=== PATIENT | female | born 1980 | race African-American/Black ===

== ENCOUNTER 2020-05-06 06:45 | Emergency (ER) | payer SELFPAY ==
[2020-05-06] MEDS ORDERED: Ringers Lactate 1,000 ML IV ONE (07:09)
[2020-05-06] MEDS ORDERED: DICYCLOMINE HCL 10 MG CAP ONE (07:09)
[2020-05-06] MEDS ORDERED: ONDANSETRON 4 MG/2 ML VIAL ONE (07:09)
--- NOTE | 2020-05-06 07:31 | RAD REPORT ---
EXAM DESCRIPTION: RAD - Chest Single View - 05/06/2020 7:23 am CLINICAL HISTORY: COUGH TECHNIQUE: AP portable chest image was obtained 05/06/2020 7:23 am . FINDINGS: Lungs are clear. Heart and vasculature are normal. No measurable pleural effusion and no p neumothorax. No acute bony abnormality seen. No acute aortic findings suspected. IMPRESSION: No acute cardiopulmonary process.
[2020-05-06 07:44] LABS: Absolute Lymphocytes (CBC) 0.7 K/uL (0.7-4.9); Basophils % 0.9 % (0-1.3); Hematocrit 31.5 % (36.0-45.0); Lymphocytes % 9.9 % (15.3-44.8); MPV 7.4 fL (7.6-11.3); RBC Red Blood Cell Count 3.36 M/uL (3.86-4.86)
[2020-05-06 07:55] LABS: ALT/SGPT 29 U/L (12-78); AST/SGOT 121 U/L (15-37); Albumin 3.9 g/dL (3.4-5.0); Alkaline Phosphatase 130 U/L (45-117); BUN Blood Urea Nitrogen 4 mg/dL (7-18); Bicarbonate 26 mmol/L (21-32); Bilirubin Direct 0.6 mg/dL (0-0.2); Glucose Level 96 mg/dL (74-106); Lipase 166 U/L (73-393); Protein, Total 8.1 g/dL (6.4-8.2); Sodium Level 135 mmol/L (136-145)
[2020-05-06 07:56] LABS: Potassium 2.9 mmol/L (3.5-5.1)
[2020-05-06] MEDS ORDERED: POTASSIUM 25 MEQ EFFERV TAB ONE (08:15)
[2020-05-06] MEDS ORDERED: KCL 20 MEQ/100 mL IVPB 20 MEQ/100 ML BAG IV ONE (08:15)
--- NOTE | 2020-05-06 08:56 | EDPHYS ---
Physician Documentation [facility] Name: Brii Garcia Age: 40 yrs Sex: Female : 1980 Arrival Date: 05/06/2020 Time: 06:46 Bed 7 Private MD: LATONYA Physician Ton Neri HPI: 05/06 08:36 This 40 yrs old Black Female presents to ER via EMS with complaints of jr8 Nausea/Vomiting/Diarrhea. 08:39 The patient presents to the emergency department with nausea, vomiting, diarrhea. jr8 Onset: The symptoms/episode began/occurred gradually, 4 day(s) ago. Possible causes: unknown. The symptoms are aggravated by nothing. The symptoms are alleviated by nothing. Associated signs and symptoms: Pertinent positives: URI symptoms. Severity of symptoms: At their worst the symptoms were moderate in the emergency department the symptoms are unchanged. The patient has not experienced similar symptoms in the past. The patient has not recently seen a physician. Denies sick contacts and recent travel. Historical: - Allergies: 06:47 No Known Allergies; ea - Home Meds: 06:47 None [Active]; ea - PMHx: 06:47 None; ea - PSHx: 06:47 None; ea - Immunization history:: Adult Immunizations up to date. - Social history:: Smoking status: . ROS: 08:39 Eyes: Negative for injury, pain, redness, and discharge, Neck: Negative for injury, jr8 pain, and swelling, Cardiovascular: Negative for chest pain, palpitations, and edema, Back: Negative for injury and pain, MS/Extremity: Negative for injury and deformity, Skin: Negative for injury, rash, and discoloration, Neuro: Negative for headache, weakness, numbness, tingling, and seizure. 08:39 ENT: Positive for rhinorrhea, sinus congestion. 08:39 Respiratory: Positive for cough, Negative for dyspnea on exertion, shortness of breath, sputum production, wheezing. 08:39 Abdomen/GI: Positive for nausea, vomiting, and diarrhea, abdominal cramps, Negative for abdominal distension, anorexia, dysphagia, hematemesis, black/tarry stool, rectal pain, rectal bleeding, bowel incontinence, flatulence. Exam: 08:39 Eyes: Pupils equal round and reactive to light, extra-ocular motions intact. Lids and jr8 lashes normal. Conjunctiva and sclera are non-icteric and not injected. Cornea within normal limits. Periorbital areas with no swelling, redness, or edema. ENT: Nares patent. No nasal discharge, no septal abnormalities noted. Tympanic membranes are normal and external auditory canals are clear. Oropharynx with no redness, swelling, or masses, exudates, or evidence of obstruction, uvula midline. Mucous membranes moist. Neck: Trachea midline, no thyromegaly or masses palpated, and no cervical lymphadenopathy. Supple, full range of motion without nuchal rigidity, or vertebral point tenderness. No Meningismus. Respiratory: Lungs have equal breath sounds bilaterally, clear to auscultation and percussion. No rales, rhonchi or wheezes noted. No increased work of breathing, no retractions or nasal flaring. Abdomen/GI: Soft, non-tender, with normal bowel sounds. No distension or tympany. No guarding or rebound. No evidence of tenderness throughout. Back: No spinal tenderness. No costovertebral tenderness. Full range of motion. Skin: Warm, dry with normal turgor. Normal color with no rashes, no lesions, and no evidence of cellulitis. MS/ Extremity: Pulses equal, no cyanosis. Neurovascular intact. Full, normal range of motion. Neuro: Awake and alert, GCS 15, oriented to person, place, time, and situation. Cranial nerves II-XII grossly intact. Motor strength 5/5 in all extremities. Sensory grossly intact. Cerebellar exam normal. Normal gait. 08:39 Cardiovascular: Rate: tachycardic, Rhythm: regular, Pulses: Pulses are 2+ in right radial artery and left radial artery. Heart sounds: normal, normal S1and S2, no S3 or S4, no murmur, no rub, no gallop, Edema: is not appreciated. 08:41 ECG was reviewed by the Attending Physician. jr8 Vital Signs: 06:48 BP 144 / 100; Pulse 106; Resp 16; Pulse Ox 100% on R/A; Weight 61.69 kg; Pain 10/10; mt2 06:51 BP 164 / 124; Pulse 107; Resp 16; Temp 97.4; Pulse Ox 96% on R/A; Pain 10/10; mt2 06:53 Pulse 134; mt2 07:43 BP 136 / 106; Pulse 103; Resp 20; Pulse Ox 96% on R/A; jr10 09:42 BP 146 / 100; Pulse 93; Resp 20; Pulse Ox 100% on R/A; jr10 MDM: 06:51 Patient medically screened. jr8 06:56 Patient medically screened. anita 08:36 Data reviewed: vital signs, nurses notes, lab test result(s), EKG, radiologic studies, jr8 plain films, ultrasound. Data interpreted: Pulse oximetry: on room air is 96 %. Interpretation: normal. Counseling: I had a detailed discussion with the patient and/or guardian regarding: the historical points, exam findings, and any diagnostic results supporting the discharge/admit diagnosis, lab results, radiology results, the need for outpatient follow up, a fish liver sorter, to return to the emergency department if symptoms worsen or persist or if there are any questions or concerns that arise at home. 08:52 Differential diagnosis: Nonspecific abd pain, cholecystitis, pancreatitis, viral jr8 gastroenteritis. Response to treatment: the patient's symptoms have mildly improved after treatment. ED course: Patients VS improving. Can tolerate fluids. US and CXR with no acute findings. Discussed LFT's with patient. Will start patient on medications for n/v/d. Explained to her that this most likely is viral in nature. Would continue to hydrate at home and will give supportive measures at this time but would not start Abx yet. Knows to come back if something were to change or worsen. 05/06 06:58 Order name: Basic Metabolic Panel; Complete Time: 08:01 05/06 06:58 Order name: CBC with Diff ea 05/06 06:58 Order name: Hepatic Function; Complete Time: 08:01 05/06 06:58 Order name: Lipase; Complete Time: 08:01 ea 05/06 06:58 Order name: XRAY Chest (1 view); Complete Time: 07:34 05/06 06:58 Order name: COVID-19 05/06 06:58 Order name: IV Saline Lock; Complete Time: 07:44 ea 05/06 08:10 Order name: US Abdomen Limited; Complete Time: 09:26 jr8 05/06 06:58 Order name: Labs collected and sent; Complete Time: 07:44 05/06 06:58 Order name: EKG - Nurse/Tech; Complete Time: 07:44 ea EC:41 Rate is 101 beats/min. Rhythm is regular, Sinus tachycardia. QRS Widener is Normal. FL jr8 interval is normal at 194 msec. QRS interval is normal at 78 msec. QT interval is normal at 368 msec. Q waves are Present in leads V1, V2. T waves are Normal. No ST changes noted. Clinical impression: Septal SC - age indeterminate and No evidence of ischemia. Interpreted by me. Reviewed by me. Administered Medications: 07:45 Drug: Lactated Ringers Solution 1000 ml Route: IV; Rate: 1000 bolus; Site: right jr10 antecubital; 09:35 Follow up: Response: No adverse reaction; IV Status: Completed infusion jr10 07:45 Drug: Zofran (Ondansetron) 4 mg Route: IVP; Site: right antecubital; jr10 09:34 Follow up: Response: No adverse reaction jr10 07:45 Not Given (pt reports that she cannot swallow pills, does not wish to have IM injection jr10 at this time): Bentyl 20 mg PO once 08:21 Drug: Potassium Chloride 20 mEq Route: IV; Rate: calculated rate; Site: right jr10 antecubital; 09:34 Follow up: IV Status: Completed infusion; IV Intake: 30ml ; pt states that she wishes jr10 not to finish potassium and just be d/c home; explained to pt the importance of potassium intact and foods high in potassium to try to eat at home 08:21 Drug: Potassium Effervescent Tablet 50 mEq Route: PO; 10 09:33 Follow up: Response: No adverse reaction jr10 Disposition: 16:40 Co-signature as Attending Physician, Ton Neri MD I agree with the assessment and anita plan of care. Disposition: 05/06/20 08:55 Discharged to Home. Impression: Hypokalemia, Dehydration, Acute Gastroenteritis. - Condition is Stable. - Discharge Instructions: Dehydration, Adult, Hypokalemia. - Prescriptions for Bentyl 20 mg Oral Tablet - take 1 tablet by ORAL route every 6 hours As needed; 20 tablet. Lomotil 2.5- 0.025 mg Oral Tablet - take 2 tablet by ORAL route every 6 hours As needed Max 8 tabs/day; 24 tablet. promethazine 6.25 mg/5 mL Oral Syrup - take 10 milliliters by ORAL route every 6 hours As needed; 200 milliliter. - Medication Reconciliation Form, Thank You Letter, Antibiotic Education, Prescription Opioid Use form. - Follow up: Private Physician; When: 2 - 3 days; Reason: Recheck today's complaints, Continuance of care, Re-evaluation by your physician. - Problem is new. - Symptoms have improved. Signatures: Dispatcher [employer] EDTon Diaz MD MD cha Roszak, Josh, PA PA jr8 Quita Boss, RN RN ea Concetta Gibbons RN RN mt2 Radha Tabares RN RN jr10 Corrections: (The following items were deleted from the chart) 09:42 08:55 05/06/2020 08:55 Discharged to Home. Impression: Hypokalemia; Dehydration; Acute jr10 Gastroenteritis. Condition is Stable. Forms are Medication Reconciliation Form, Thank You Letter, Antibiotic Education, Prescription Opioid Use. Follow up: Private Physician; When: 2 - 3 days; Reason: Recheck today's complaints, Continuance of care, Re-evaluation by your physician. Problem is new. Symptoms have improved. jr8
--- NOTE | 2020-05-06 08:56 | ER ---
Nurse's Notes [facility] Name: Brii Garcia Age: 40 yrs Sex: Female : 1980 Arrival Date: 05/06/2020 Time: 06:46 Bed 7 Private MD: Diagnosis: Hypokalemia;Dehydration;Acute Gastroenteritis Presentation: 05/06 06:48 Chief complaint: EMS states: BIBA FROM HOME N/V/D X 4 DAYS. ZOFRAN 4MG GIVEN ON SCENE. mt2 DENIES FEVER. Coronavirus screen: Client denies travel out of the [place] in the last 14 days. At this time, the client does not indicate any symptoms associated with coronavirus-19. Ebola Screen: No symptoms or risks identified at this time. Initial Sepsis Screen: Does the patient meet any 2 criteria? No. Patient's initial sepsis screen is negative. Does the patient have a suspected source of infection? No. Patient's initial sepsis screen is negative. Risk Assessment: Do you want to hurt yourself or someone else? Patient reports no desire to harm self or others. Onset of symptoms was April 30, 2020. 06:48 Method Of Arrival: EMS: [facility] mt2 06:48 Acuity: ANG 3 mt2 Historical: - Allergies: 06:47 No Known Allergies; ea - Home Meds: 06:47 None [Active]; ea - PMHx: 06:47 None; ea - PSHx: 06:47 None; ea - Immunization history:: Adult Immunizations up to date. - Social history:: Smoking status: . Screenin:46 Abuse screen: Denies threats or abuse. Nutritional screening: No deficits noted. ea Tuberculosis screening: No symptoms or risk factors identified. Fall Risk IV access (20 points). Assessment: 07:41 General: Appears uncomfortable, Behavior is appropriate for age. Pain: Complains of jr10 pain in generalized ISAAC and abd cramping Pain began Monday night. Neuro: No deficits noted. Cardiovascular: No deficits noted. Denies chest pain. Respiratory: Reports shortness of breath at rest when lying flat "I had to sit up in the recliner last night to try to get some sleep roberth everytime I lay flat I feel like I can't catch my breath" Airway is patent Respiratory effort is even, unlabored, Respiratory pattern is regular, symmetrical, the patient has mild shortness of breath. GI: Abdomen is non-distended, Stools are reported to be diarrhea. Bowel sounds present X 4 quads. Abd is soft and non tender Reports cramping, diarrhea, intolerance of fluids, intolerance of food, nausea. : No deficits noted. No signs and/or symptoms were reported regarding the genitourinary system. Denies burning with urination, urinary frequency, urgency. EENT: No deficits noted. No signs and/or symptoms were reported regarding the EENT system. Derm: No deficits noted. No signs and/or symptoms reported regarding the dermatologic system. Musculoskeletal: No deficits noted. No signs and/or symptoms reported regarding the musculoskeletal system. 08:36 Reassessment: Patient and/or family updated on plan of care and expected duration. Pain jr10 level reassessed. Patient is alert, oriented x 3, equal unlabored respirations, skin warm/dry/pink. US at bedside. Vital Signs: 06:48 BP 144 / 100; Pulse 106; Resp 16; Pulse Ox 100% on R/A; Weight 61.69 kg; Pain 10/10; mt2 06:51 BP 164 / 124; Pulse 107; Resp 16; Temp 97.4; Pulse Ox 96% on R/A; Pain 10/10; mt2 06:53 Pulse 134; mt2 07:43 BP 136 / 106; Pulse 103; Resp 20; Pulse Ox 96% on R/A; jr10 09:42 BP 146 / 100; Pulse 93; Resp 20; Pulse Ox 100% on R/A; jr10 ED Course: 06:46 Patient arrived in ED. cl3 06:47 Concetta Gibbons, ANNE-MARIE is Primary Nurse. mt2 06:47 Patient has correct armband on for positive identification. Placed in gown. Bed in low ea position. Call light in reach. 06:48 Lyndon Emerson PA is PHCP. jr8 06:48 Ton Neri MD is Attending Physician. jr8 06:51 Triage completed. mt2 06:52 Arm band placed on right wrist. Patient placed in an exam room, on a stretcher, on ea pulse oximetry. 07:23 XRAY Chest (1 view) In Process Unspecified. EDMS 07:40 No provider procedures requiring assistance completed. Maintain EMS IV. Dressing jr10 intact. Good blood return noted. Site clean \\T\\ dry. Gauge \\T\\ site: 20# to right AC. Flushed. 07:41 Pulse ox on. NIBP on. jr10 08:41 US Abdomen Limited In Process Unspecified. EDMS 09:35 IV discontinued, intact, bleeding controlled, No redness/swelling at site. Pressure jr10 dressing applied. Administered Medications: 07:45 Drug: Lactated Ringers Solution 1000 ml Route: IV; Rate: 1000 bolus; Site: right jr10 antecubital; 09:35 Follow up: Response: No adverse reaction; IV Status: Completed infusion jr10 07:45 Drug: Zofran (Ondansetron) 4 mg Route: IVP; Site: right antecubital; jr10 09:34 Follow up: Response: No adverse reaction jr10 07:45 Not Given (pt reports that she cannot swallow pills, does not wish to have IM injection jr10 at this time): Bentyl 20 mg PO once 08:21 Drug: Potassium Chloride 20 mEq Route: IV; Rate: calculated rate; Site: right jr10 antecubital; 09:34 Follow up: IV Status: Completed infusion; IV Intake: 30ml ; pt states that she wishes jrLakisha not to finish potassium and just be d/c home; explained to pt the importance of potassium intact and foods high in potassium to try to eat at home 08:21 Drug: Potassium Effervescent Tablet 50 mEq Route: PO; jr10 09:33 Follow up: Response: No adverse reaction jr10 Intake: 09:34 IV: 30ml; Total: 30ml. jr10 Outcome: 08:55 Discharge ordered by . jr8 09:35 Discharged to home ambulatory. jr10 09:35 Condition: stable 09:35 Discharge instructions given to patient, Instructed on discharge instructions, follow up and referral plans. Demonstrated understanding of instructions, follow-up care, medications, Prescriptions given X 3. 09:42 Patient left the ED. jr10 Addendum: 05/08/2020 15:54 Addendum: COVID-19 Result: Negative result given to RN to notify pt. Attempted to d m5 contact pt regarding negative COVID-19 swab results. Left voice mail. Signatures: Dispatcher [facility] Verito Jain RN RN dm5 Lyndon Emerson PA PA jr8 Quita Boss, RN RN Dinora Dyson cl3 Concetta Gibbons, RN RN mt2 Radha Tabares RN RN jr10
[2020-05-06] MEDS ORDERED: NA CHLORIDE 0.9% 500 ML ONE (09:10)
--- NOTE | 2020-05-06 09:19 | RAD REPORT ---
EXAM DESCRIPTION: US - Abdomen Exam Limited - 05/06/2020 8:41 am CLINICAL HISTORY: Liver and GB COMPARISON: No comparisons FINDINGS: No gallstones identified. There is small amount of sludge layering on the dependent portio n of the gallbladder. There is no wall thickening or pericholecystic fluid. No common duct stone or biliary tree dilatation identified. No suspicious liver lesion. There are several small less than 2 centimeter areas of homogeneous incre ased parenchymal echogenicity. These are believed to be multiple small hemangiomas. No portal vein ab normality on Doppler assessment. Liver is enlarged at 20 cm maximum dimension. IMPRESSION: Gallbladder sludge with no other gallbladder or biliary tree finding. Hepatomegaly at 20 cm. Small hemangiomas are present.
[2020-05-06 10:09] LABS: Platelet Estimate DECR; Platelets, Giant FEW PRESENT; White Blood Cell Scan OK
[2020-05-06 10:10] LABS: Anisocytosis 3+; Blood Morphology Comment NOTED (NOT SEEN); Target Cells 1+
--- NOTE | 2020-05-07 08:19 | EKG ---
Test Date: 2020-05-06 Test Time: 07:39:12 Glue Maker Bone: NANCI MEASUREMENT RESULTS: Intervals: Rate: 101 SC: 194 QRSD: 78 QT: 368 QTc: 477 [place]: P: 71 SC: 194 QRS: 71 T: 52 INTERPRETIVE STATEMENTS: Sinus tachycardia Septal infarct, age undetermined Abnormal ECG No previous ECG available for comparison Electronically Signed On 05-07-20 08:16:46 CDT by Jose Angel Clancy
[2020-05-08 10:10] VITALS: TEMP 97.4
[2020-05-08 10:14] VITALS: BP 146/100; O2SAT 100
== END 2020-05-06 09:42 | disposition home or self-care (01) ==
LOC: ER 06:45
DX: K52.9 Noninfective gastroenteritis and colitis, unspecified (principal); E86.0 Dehydration; E87.6 Hypokalemia
CPT/HCPCS: 36415; 71045; 76705; 80048; 80076; 83690; 85025; 93005; 96361; 96365; 96375; 99284; J2405; J3480; J7040; J7120; U0002

== ENCOUNTER 2020-11-11 13:30 | Inpatient (IN) | payer SELFPAY ==
[2020-11-11 14:04] LABS: Absolute Lymphocytes (CBC) 2.6 K/uL (0.7-4.9); Basophils % 0.7 % (0-1.3); Hematocrit 31.9 % (36.0-45.0); Lymphocytes % 22.7 % (15.3-44.8); MPV 8.3 fL (7.6-11.3); RBC Red Blood Cell Count 3.48 M/uL (3.86-4.86)
[2020-11-11] MEDS ORDERED: ONDANSETRON 4 MG/2 ML VIAL ONE ×2 (14:10→19:27)
--- NOTE | 2020-11-11 14:18 | RAD REPORT ---
EXAM DESCRIPTION: CT - Head Brain Wo Cont - 11/11/2020 2:07 pm CLINICAL HISTORY: Syncope COMPARISON: None TECHNIQUE: Computed axial tomography of the head was obtained. IV contrast was not requested. All CT scans are performed using dose optimization technique as appropriate and may include automated exposure control or mA/KV adjustment according to patient size. FINDINGS: An intracranial bleed is not seen . The ventricles are normal in caliber. No extra-axial fluid collection is noted. Mild low-density areas within periventricular white matter Fluid within the sinuses/ mastoids is not seen. IMPRESSION: Mild low-density areas within periventricular white matter nonspecific finding. This can be secondary mild ischemic changes secondary to mild small vessel disease. If the patient continues symptoms to have symptoms to suggest intracranial pathology MRI would be rec ommended
--- NOTE | 2020-11-11 14:39 | RAD REPORT ---
EXAM DESCRIPTION: CT - Chest Abdomen Pelvis W Cont - 11/11/2020 2:11 pm CLINICAL HISTORY: Chest and abdominal pain COMPARISON: CT chest January 13, 2017 TECHNIQUE: Computed axial tomography of the chest, abdomen and pelvis was obtained. 100 cc Isovue-30 0 was administered intravenously. Oral contrast was not requested. This limits evaluation of bowel. All CT scans are performed using dose optimization technique as appropriate and may include automated exposure control or mA/KV adjustment according to patient size. FINDINGS: Lungs are clear. No mediastinal or hilar lymphadenopathy. No pleural effusion. No pericardial effusion The liver has diffusely diminished attenuation consistent with fatty infiltration. Additional ill-def ined low density area measuring approximately 4 x 1 centimeters is present within right lower lobe po sterior segment. It extends to the capsule. There is no subcapsular hematoma. Spleen, pancreas, adrenals and kidneys appear grossly normal. 3.8 centimeter left ovarian cyst without significant free fluid. IMPRESSION: A 4 x 1 centimeter ill-defined low-density area within the posterior segment of the righ t lobe of the liver made represent focal fatty infiltration superimpose over additional fatty infiltr ation. A laceration can also have this appearance and should be correlated clinically. However, ther e is no adjacent subcapsular hematoma or hemoperitoneum. Mild stranding within the fat adjacent to transverse colon is a nonspecific finding. It could indicat e mild inflammation 3.8 centimeter left ovarian cyst without significant free fluid
[2020-11-11 14:44] LABS: BUN Blood Urea Nitrogen 2 mg/dL (7-18); Bicarbonate 21 mmol/L (21-32); Glucose Level 132 mg/dL (74-106); Sodium Level 136 mmol/L (136-145); Troponin (Emerg Dept Use Only) < 0.02 ng/mL (0.0-0.045)
[2020-11-11 14:52] LABS: Potassium 2.6 mmol/L (3.5-5.1)
[2020-11-11] MEDS ORDERED: Ringers Lactate 1,000 ML IV ONE (14:58)
[2020-11-11] MEDS ORDERED: ACETAMINOPHEN 500 MG TAB PO PRN (15:44)
[2020-11-11] MEDS ORDERED: MORPHINE 2 MG/ML SYR IV PRN (15:44)
[2020-11-11] MEDS ORDERED: ONDANSETRON 4 MG/2 ML VIAL IV PRN (15:44)
[2020-11-11] MEDS: NA CHLORIDE 0.9% 1,000 ML IV SCH (16:00)
[2020-11-11] MEDS ORDERED: KCL 20 MEQ/100 mL IVPB 20 MEQ/100 ML BAG IV ONE (16:48)
[2020-11-11] MEDS ORDERED: NA CHLORIDE 0.9% 500 ML ONE (16:48)
--- NOTE | 2020-11-11 16:56 | ER ---
Nurse's Notes [facility] Name: Brii Garcia Age: 40 yrs Sex: Female : 1980 Arrival Date: 11/11/2020 Time: 13:35 Bed 19 Private MD: Diagnosis: New Onset seizure;Hypokalemia;Dehydration Presentation: 11/11 13:39 Chief complaint: registration staff registering pt by pts son, pt witness collapse on tw2 floor, pts step son states she had vomited once and he helped her clean up, then he went back to his room, then she started feeling nauseous and sweating so he brought her here, nkda, no known hx. Coronavirus screen: nausea, vomiting. Client presents with at least one sign or symptom that may indicate coronavirus-19. Standard/surgical mask placed on the client. Provider contacted for isolation considerations. Ebola Screen: Patient denies travel to an Ebola-affected area in the 21 days before illness onset. Initial Sepsis Screen: Does the patient meet any 2 criteria? HR > 90 bpm. Does the patient have a suspected source of infection? No. Patient's initial sepsis screen is negative. Risk Assessment: Do you want to hurt yourself or someone else? Patient reports no desire to harm self or others. Onset of symptoms was November 11, 2020. 13:39 Method Of Arrival: Stretcher tw2 13:39 Acuity: ANG 2 tw2 Triage Assessment: 13:41 General: Appears slender, Behavior is anxious. Pain: Complains of pain in abdomen, tw2 right foot, left foot, right leg and left leg. Neuro: Level of Consciousness is confused, Oriented to person. GI: Pt is actively vomiting bile. Derm: Skin is diaphoretic. Historical: - Allergies: 13:43 No Known Allergies; tw2 - PMHx: 13:43 Unable to obtain; tw2 - PSHx: 13:43 None; tw2 - Immunization history:: Adult Immunizations. - Social history:: Smoking status: . - Family history:: not pertinent. - Hospitalizations: : No recent hospitalization is reported. Screenin:43 Abuse screen: Denies threats or abuse. Nutritional screening: No deficits noted. tw2 Tuberculosis screening: No symptoms or risk factors identified. Fall Risk None identified. Assessment: 13:46 General: Appears in no apparent distress. Behavior is cooperative, agitated. Pain: zb Complains of pain in left leg and right leg. Neuro: Level of Consciousness is awake, alert, obeys commands, Oriented to person, Seizure activity reported prior to arrival. noted by son in lobby. Cardiovascular: Patient's skin is warm and dry. Respiratory: Airway is patent Respiratory effort is even, unlabored. GI: Pt is actively vomiting bile. : No signs and/or symptoms were reported regarding the genitourinary system. EENT: No signs and/or symptoms were reported regarding the EENT system. Derm: Skin is intact, is healthy with good turgor, Skin is dry, Skin is normal. Musculoskeletal: Range of motion: intact in all extremities. 14:30 Reassessment: Patient appears in no apparent distress at this time. Patient and/or zb family updated on plan of care and expected duration. Pain level reassessed. Patient is alert, oriented x 3, equal unlabored respirations, skin warm/dry/pink. Patient states she wants to go home. denies n/v at this time states she feels better. denies LR and other IV medication. Want to leave. notified charge nurse and ECP. 15:35 Reassessment: ECP at bedside. z 15:48 Reassessment: Patient states that she would like to smoke informed not to. notified charge nurse. 16:03 Reassessment: Patient walked out of room w/ soon stating that she had to smoke. IV zb removed. ECP notified. 16:30 Reassessment: patient returned back to room. 17:53 Reassessment: hospitalist at bedside. Vital Signs: 13:39 Pulse 96; Resp 19; Pulse Ox 98% on R/A; Weight 49.9 kg (R); Height 5 ft. 2 in. (157.48 tw2 cm); 13:46 BP 169 / 108; ca1 15:00 BP 156 / 103; Pulse 66; Resp 18; Pulse Ox 100% on R/A; zb 16:00 BP 157 / 100; Pulse 109; Resp 18; Pulse Ox 99% ; zb 17:56 BP 148 / 100; Pulse 99; Resp 16; Pulse Ox 100% on R/A; zb 13:39 Body Mass Index 20.12 (49.90 kg, 157.48 cm) tw2 ED Course: 13:35 Patient arrived in ED. am2 13:38 Raul Parkinson MD is Attending Physician. rn 13:38 Bed in low position. Call light in reach. Side rails up X2. Adult w/ patient. Pulse ox tw2 on. NIBP on. 13:41 Triage completed. tw2 13:41 Arm band placed on. tw2 13:46 Jennifer Lea RN is Primary Nurse. zb 13:46 Initial lab(s) drawn, by nm, sent to lab. Inserted saline lock: 22 gauge in right ca1 wrist, using aseptic technique. Blood collected. 14:07 CT Head Brain wo Cont In Process Unspecified. EDMS 14:11 CT Chest, Abdomen, Pelvis - W/Contrast In Process Unspecified. EDMS 16:53 Diego Sharif MD is Hospitalizing Provider. rn 03 00:25 No provider procedures requiring assistance completed. Patient admitted, IV remains in sf place. 06:58 Primary Nurse role handed off by Jennifer Lea RN bp 06:58 Margarito Catherine, ANNE-MARIE is Primary Nurse. bp 07:03 Report given to ANNE-MARIE Pimentel. sf Administered Medications: 03 13:59 Drug: Zofran (Ondansetron) 4 mg Route: IVP; Site: right forearm; zb 15:49 Follow up: Response: No adverse reaction; Nausea is decreased zb 16:53 Drug: Potassium Chloride 20 mEq Route: IV; Rate: calculated rate; Site: right forearm; zb 19:23 Follow up: Response: No adverse reaction; IV Status: Completed infusion; IV Intake: zb 100ml 16:53 Drug: NS 0.9% 500 ml {Note: administered w/ potassium .} Volume: 500 ml; Route: IV; zb Rate: 1 bolus; Site: right forearm; 19:00 Follow up: Response: No adverse reaction; IV Status: Completed infusion; IV Intake: zb 500ml 17:46 Drug: morphine 4 mg Route: IVP; Site: right forearm; zb 19:00 Follow up: Response: No adverse reaction; Pain is decreased; RASS: Alert and Calm (0) zb 19:00 Drug: Lactated Ringers Solution 1000 ml Route: IV; Rate: 500 ml/hr; Site: right zb antecubital; 23:37 Follow up: Response: No adverse reaction; IV Status: Completed infusion; IV Intake: zb 1000ml 20:47 Drug: Zofran (Ondansetron) 4 mg Route: IVP; Site: right forearm; zb 21:00 Follow up: Response: Nausea is decreased zb Intake: 19:00 IV: 500ml; Total: 500ml. zb 19:23 IV: 100ml; Total: 600ml. zb 23:37 IV: 1000ml; Total: 1600ml. zb Outcome: 16:55 Decision to Hospitalize by Provider. rn 11/12 00:25 Admitted to ER Hold. Please see [facility] for further documentation. sf Condition: stable Instructed on the need for admit. 13:05 Patient left the ED. bp Signatures: Dispatcher [employer] EDRaul Mcclain MD MD rn Wise, Tara, RN RN tw2 Vidya Anne Brian, RN RN bp Stephy Aviles RN RN ca1 Brown, Zipporah, RN RN zb Kumar Mak RN RN sf Corrections: (The following items were deleted from the chart) 11/11 23:32 19:00 Response: No adverse reaction; Nausea is decreased zb zb
--- NOTE | 2020-11-11 16:56 | EDPHYS ---
Physician Documentation [facility] Name: Brii Garcia Age: 40 yrs Sex: Female : 1980 Arrival Date: 11/11/2020 Time: 13:35 Bed 19 Private MD: ED Physician Raul Parkinson HPI: 11/11 13:45 This 40 yrs old Black Female presents to ER via Stretcher with complaints of vomiting, rn not feeling well. 13:49 The patient presents after having a possible seizure episode. Seizure onset: just prior rn to arrival. Seizure Hx: the patient has no previous seizure history. Associated injury: The patient did not suffer any apparent associated injury. Current symptoms: confusion. The patient has not experienced similar symptoms in the past. The patient has not recently seen a physician. Per son, woke up this morning not feeling well, threw up once, didn't get better, brought her in, had what was described as seizure activity in front lobby, brief, followed by confusion. No hx of seizure. No known head injury. Son reports no medication or medical problems. Was let down to ground by family, no assoc trauma.. Historical: - Allergies: 13:43 No Known Allergies; tw2 - PMHx: 13:43 Unable to obtain; tw2 - PSHx: 13:43 None; tw2 - Immunization history:: Adult Immunizations. - Social history:: Smoking status: . - Family history:: not pertinent. - Hospitalizations: : No recent hospitalization is reported. ROS: 13:49 Unable to obtain ROS due to altered mental status. rn Exam: 13:49 Constitutional: Thin female, with emesis on shirt and floor, appears altered, but rn stands with assistance and sitting upright in stretcher. Head/Face: Normocephalic, atraumatic. Eyes: Pupils equal round and reactive to light, extra-ocular motions intact. Lids and lashes normal. Conjunctiva and sclera are non-icteric and not injected. Cornea within normal limits. Periorbital areas with no swelling, redness, or edema. NO nystagmus. Neck: Trachea midline, no thyromegaly or masses palpated, and no cervical lymphadenopathy. Supple, full range of motion without nuchal rigidity, or vertebral point tenderness. No Meningismus. Cardiovascular: Regular rate and rhythm. No pulse deficits. Respiratory: No increased work of breathing, no retractions or nasal flaring. Abdomen/GI: soft, non-tender Skin: Warm, dry, no rash MS/ Extremity: Pulses equal, no cyanosis. Neurovascular intact. Full, normal range of motion. Equal circumference. Neuro: Awake and alert, GCS 15, oriented to person, place, not time, did not recognize son. Cranial nerves II-XII grossly intact. Motor strength 4/5 in all extremities. Sensory grossly intact. Vital Signs: 13:39 Pulse 96; Resp 19; Pulse Ox 98% on R/A; Weight 49.9 kg (R); Height 5 ft. 2 in. (157.48 tw2 cm); 13:46 BP 169 / 108; ca1 15:00 BP 156 / 103; Pulse 66; Resp 18; Pulse Ox 100% on R/A; zb 16:00 BP 157 / 100; Pulse 109; Resp 18; Pulse Ox 99% ; zb 17:56 BP 148 / 100; Pulse 99; Resp 16; Pulse Ox 100% on R/A; zb 13:39 Body Mass Index 20.12 (49.90 kg, 157.48 cm) tw2 MDM: 13:38 Patient medically screened. rn 16:51 Differential diagnosis: seizure, enteritis, colitis, hypokalemia. Data reviewed: vital rn signs, nurses notes, lab test result(s), EKG, radiologic studies, CT scan, and as a result, I will admit patient. Counseling: I had a detailed discussion with the patient and/or guardian regarding: the historical points, exam findings, and any diagnostic results supporting the discharge/admit diagnosis, lab results, radiology results, the need for further work-up and treatment in the hospital. Response to treatment: the patient's symptoms have markedly improved after treatment, the patient's condition has returned to base line, and as a result, I will admit patient. ED course: Pt with hypokalemia, first seizure, will admit to Dr. Sharif with neurology consult.. 11/11 13:41 Order name: CBC with Diff rn 11/11 12:41 Order name: Basic Metabolic Panel; Complete Time: 15:14 rn 11/11 13:41 Order name: Urine Microscopic Only rn 11/11 12:41 Order name: Procalcitonin rn 11/11 13:41 Order name: Lactate; Complete Time: 16:55 rn 11/11 13:41 Order name: Troponin (emerg Dept Use Only); Complete Time: 15:14 rn 11/11 13:41 Order name: Flu rn 11/11 13:41 Order name: Blood Culture Adult (2) rn 11/11 13:56 Order name: Glucose, Ancillary Testing; Complete Time: 15:14 EDMS 11/11 16:58 Order name: COVID-19/FLU A+B EDMS 11/11 22:20 Order name: CBC Smear Scan EDMS 11/11 23:16 Order name: Urine Dipstick--Ancillary (enter results) tt3 11/12 00:42 Order name: Urine Dipstick-Ancillary EDMS 11/11 13:41 Order name: CT Head Brain wo Cont; Complete Time: 15:14 rn 11/11 13:41 Order name: CT Chest, Abdomen, Pelvis - W/Contrast; Complete Time: 15:14 rn 11/11 13:41 Order name: Urine Dipstick-Ancillary (obtain specimen); Complete Time: 23:39 rn 11/11 13:41 Order name: IV Start; Complete Time: 13:56 rn 11/11 13:41 Order name: EKG; Complete Time: 13:42 rn 11/12 01:11 Order name: CREATININE WHOLE BLOOD EDIL 11/12 07:04 Order name: Comprehensive Metabolic Panel EDIL 11/12 08:14 Order name: CBC with Automated Diff EDMS 11/12 09:23 Order name: MRI EDMS 11/12 09:46 Order name: CBC Smear Scan EDIL 11/11 13:41 Order name: Glucose Level; Complete Time: 13:55 rn 11/11 13:41 Order name: EKG - Nurse/Tech; Complete Time: 13:55 rn 11/11 13:41 Order name: Urine Test (obtain specimen); Complete Time: 23:30 rn Administered Medications: 13:59 Drug: Zofran (Ondansetron) 4 mg Route: IVP; Site: right forearm; zb 15:49 Follow up: Response: No adverse reaction; Nausea is decreased zb 16:53 Drug: Potassium Chloride 20 mEq Route: IV; Rate: calculated rate; Site: right forearm; zb 19:23 Follow up: Response: No adverse reaction; IV Status: Completed infusion; IV Intake: zb 100ml 16:53 Drug: NS 0.9% 500 ml {Note: administered w/ potassium .} Volume: 500 ml; Route: IV; zb Rate: 1 bolus; Site: right forearm; 19:00 Follow up: Response: No adverse reaction; IV Status: Completed infusion; IV Intake: zb 500ml 17:46 Drug: morphine 4 mg Route: IVP; Site: right forearm; zb 19:00 Follow up: Response: No adverse reaction; Pain is decreased; RASS: Alert and Calm (0) zb 19:00 Drug: Lactated Ringers Solution 1000 ml Route: IV; Rate: 500 ml/hr; Site: right zb antecubital; 23:37 Follow up: Response: No adverse reaction; IV Status: Completed infusion; IV Intake: zb 1000ml 20:47 Drug: Zofran (Ondansetron) 4 mg Route: IVP; Site: right forearm; zb 21:00 Follow up: Response: Nausea is decreased zb Disposition: 11/11/20 16:55 Hospitalization ordered by Diego Sharif for Observation. Preliminary diagnosis are New Onset seizure, Hypokalemia, Dehydration. - Bed requested for Telemetry/MedSurg (observation). - Status is Observation. bp - Condition is Stable. - Problem is new. - Symptoms have improved. Signatures: Dispatcher [employer] EDMS Cinthia Torres Roman, MD MD rn Wise, Tara RN RN tw2 Margarito Catherine RN Yanna Truong Zipporah, RN RN zb Corrections: (The following items were deleted from the chart) 18:02 16:55 Hospitalization Ordered by Diego Sharif MD for Observation. Preliminary bd diagnosis is New Onset seizure; Hypokalemia; Dehydration. Bed requested for Telemetry/MedSurg (observation). Status is Observation. Condition is Stable. Problem is new. Symptoms have improved. rn 11/12 11:36 11/11 18:02 11/11/2020 16:55 Hospitalization Ordered by Diego Sharif MD for eb Observation. Preliminary diagnosis is New Onset seizure; Hypokalemia; Dehydration. Bed requested for [facility] ER HOLD. Status is Observation. Condition is Stable. Problem is new. Symptoms have improved. bd 11/12 13:05 11:36 11/11/2020 16:55 Hospitalization Ordered by Diego Sharif MD for Observation. bp Preliminary diagnosis is New Onset seizure; Hypokalemia; Dehydration. Bed requested for Telemetry/MedSurg (observation). Status is Observation. Condition is Stable. Problem is new. Symptoms have improved. eb
[2020-11-11 16:58] LABS: SARS-COV-2 RT PCR NEGATIVE (NEGATIVE)
[2020-11-11] MEDS: levETIRAcetam 500 MG in NA CHLORIDE 0.9% 100 ML IV SCH (17:00)
[2020-11-11] MEDS ORDERED: MORPHINE 4 MG/ML SYR ONE (17:56)
[2020-11-11] MEDS ORDERED: NA CHLORIDE 0.9% 1,000 ML ONE (22:18)
[2020-11-11 22:19] LABS: Platelet Estimate DECR; White Blood Cell Scan OK (OK)
[2020-11-11 22:20] LABS: Anisocytosis 3+; Blood Morphology Comment NOTED (NOT SEEN); Hypochromasia 1+; Poikilocytosis 1+; Target Cells 1+
[2020-11-12 00:03] VITALS: BMI 20.1
[2020-11-12 00:41] LABS: Urine Blood 2+ (NEG); Urine Glucose NEGATIVE (NEG); Urine Protein NEGATIVE (NEG); Urine pH 8.5 (5.0-7.0)
[2020-11-12 00:43] LABS: Urine Bacteria <20 /HPF (<20); Urine RBC 20-50 /HPF (NONE SEEN)
[2020-11-12] MEDS: NA CHLORIDE 0.9% 1,000 ML IV SCH ×3 (02:45→22:00)
[2020-11-12] MEDS: levETIRAcetam 500 MG in NA CHLORIDE 0.9% 100 ML IV SCH ×2 (05:00→17:00)
--- NOTE | 2020-11-12 05:13 | EKG ---
Test Date: 2020-11-11 Test Time: 13:48:51 Director Game: ANTONIO MEASUREMENT RESULTS: Intervals: Rate: 96 VT: 202 QRSD: 84 QT: 390 QTc: 492 [place]: P: 83 VT: 202 QRS: 86 T: 74 INTERPRETIVE STATEMENTS: Normal sinus rhythm Voltage criteria for left ventricular hypertrophy Cannot rule out Septal infarct, age undetermined Abnormal ECG Compared to ECG 05/06/2020 07:39:12 Left ventricular hypertrophy now present Sinus tachycardia no longer present Myocardial infarct finding still present Electronically Signed On 11-12-20 05:11:16 MACHINIST INSTRUCTOR by Jose Angel Clancy
[2020-11-12] MEDS ORDERED: NA CHLORIDE 0.9% 1,000 ML ONE (05:41)
--- NOTE | 2020-11-12 06:57 | P.HP ---
Certification for Inpatient Patient admitted to: Observation With expected LOS: <2 Midnights Patient will require the following post-hospital care: None Practitioner: I am a practitioner with admitting privileges, knowledge of patient current condition, hospital course, and medical plan of care. Services: Services provided to patient in accordance with Admission requirements found in Title 42 Section 412.3 of the Code of Federal Regulations Patient History Date of Service: 11/11/20 Reason for admission: Seizure activity/patient came in for swelling of the legs and having N/V/D History of Present Illness: Patient is a 40-year-old female came to the hospital with nausea, vomiting, and diarrhea. This been going on for the last week. She has been noticing some swelling and numbness in her feet and her face. She was worried about this so she was coming to the emergency room. She was with her son and while she was checking and she had a seizure-like activity. She started having some tremors of the upper extremity and she became unresponsive. They later on the floor and she slowly started coming around. She woke up about 5-10 min later but she was confused. Her son says that she did not come around all the way for about 45 min to 1 hr. She denies biting her tongue or she did not have incontinence of her urine. She does recall about 2 weeks ago were she had an episode were she fell she was in a deep dream, and when she woke up she had urinated on herself. She had a CT of her chest, abdomen, and pelvis which revealed a questionable area on her liver which looked like a fatty infiltrate. Concerned it was a laceration but she has no abdominal pain or no signs of bleeding internally. She also had questionable mild colitis as well as ovarian cyst. She will be admitted to the hospital for further workup. Will workup for seizure as well as a cause of her nausea, vomiting, and diarrhea. She will be admitted for observation. Allergies No Known Allergies Allergy (Unverified 10/20/12 02:57) - Past Medical/Surgical History Has patient received pneumonia vaccine in the past: No Past Medical History: Patient denies medical history Past Surgical History: Patient denies surgical history - Family History Father Family History: Reviewed- Non-Contributory - Social History Smoking Status: Current every day smoker Alcohol use: No CD- Drugs: No Review of Systems 10-point ROS is otherwise unremarkable Physical Examination - Vital Signs Temperature: 98.7 F Blood Pressure: 110/74 Pulse: 88 Respirations: 16 Pulse Ox (%): 97 - Physical Exam General: Alert, In no apparent distress, Oriented x3 HEENT: Atraumatic, PERRLA, Mucous membr. moist/pink, EOMI, Sclerae nonicteric Neck: Supple, 2+ carotid pulse no bruit, No LAD, Without JVD or thyroid abnormality Respiratory: Clear to auscultation bilaterally, Normal air movement Cardiovascular: Regular rate/rhythm, Normal S1 S2, No murmurs Gastrointestinal: Normal bowel sounds, Soft and benign, Non-distended, No tenderness Musculoskeletal: No clubbing, No swelling, No tenderness Integumentary: No rashes Neurological: Normal gait, Normal speech, Normal strength at 5/5 x4 extr, Normal tone, Sensation intact, Cranial nerves 3-12 intact, Normal affect Lymphatics: No axilla or inguinal lymphadenopathy - Studies Laboratory Data (last 24 hrs) 11/11/20 13:45: Sodium 136, Potassium 2.6 L*, BUN 2 L, Creatinine 0.50 L, Gl ucose 132 H 11/11/20 13:45: WBC 11.50 H, Hgb 9.8 L, Hct 31.9 L, Plt Count 133 L Assessment & Plan - Problems (Diagnosis) (1) Seizures Current Visit: Yes Status: Acute (2) Nausea & vomiting Current Visit: Yes Status: Acute (3) Diarrhea Current Visit: Yes Status: Acute (4) Paresthesias Current Visit: Yes Status: Acute (5) Facial swelling Current Visit: Yes Status: Acute (6) Colitis Current Visit: Yes Status: Acute - Plan Plan: 1. EEG 2. MRI of the brain 3. Anti epileptics 4. Neurology consultation 5. Thyroid studies as well as the B12 and folate; check nutritional status 6. Rheumatologic workup 7. GI and DVT prophylaxis Discharge Plan: Home Plan to discharge in: 24 Hours - Advance Directives Does patient have a Living Will: No Does patient have a Durable POA for Healthcare: No - Code Status/Comfort Care Code Status Assessed: Yes Code Status: Full Code Critical Care: No Time Spent Managing PTS Care (In Minutes): 45
[2020-11-12 06:58] LABS: ALT/SGPT 20 U/L (12-78); AST/SGOT 50 U/L (15-37); Albumin 2.7 g/dL (3.4-5.0); Alkaline Phosphatase 121 U/L (45-117); BUN Blood Urea Nitrogen 1 mg/dL (7-18); Bicarbonate 28 mmol/L (21-32); Bilirubin Total 1.8 mg/dL (0.2-1.0); Glucose Level 95 mg/dL (74-106); Sodium Level 138 mmol/L (136-145)
[2020-11-12 07:04] LABS: Potassium 2.6 mmol/L (3.5-5.1)
[2020-11-12 07:59] LABS: Absolute Lymphocytes (CBC) 0.8 K/uL (0.7-4.9); Hematocrit 23.9 % (36.0-45.0); Lymphocytes % 15.9 % (15.3-44.8); MPV 8.8 fL (7.6-11.3); RBC Red Blood Cell Count 2.67 M/uL (3.86-4.86)
--- NOTE | 2020-11-12 09:22 | RAD REPORT ---
EXAM DESCRIPTION: MRI - Brain Wo Cont - 11/12/2020 8:58 am CLINICAL HISTORY: sz; vertigo COMPARISON: No comparisons TECHNIQUE: Sagittal T1-weighted images were obtained along with axial PD, heavily T2-weighted and T2 -FLAIR images. Axial DWI and ADC mapping sequences were also obtained along with coronal heavily T2-w eighted images. FINDINGS: No intracranial hemorrhage, mass or acute infarction. There is no edema or shift of midlin e structures. No extra-axial fluid collections. Christian-matter/white matter junction is preserved. Signa l voids are seen as a normal finding in the major intracranial vessels. The patient does have several foci of T2/IR hyperintensity in the cerebral white matter. Chronic isch emic changes not typically seen in a patient this age. Demyelinating disorder such as MS would be pos sible and would need clinical correlation. Vasculitis and migraine headache patients can have this pa ttern. No globe or orbital content abnormality. No sella or supra sella abnormality. Mastoid air cells and paranasal sinuses are clear. IMPRESSION: No infarction, mass or acute intracranial finding identifiable. Patient has several abnormal foci in the cerebral white matter not typically seen in a patient this a ge. Chronic ischemic change would not be expected in a patient this age. Demyelinating disease, migr margy headache and vasculitis etiologies are possible.
[2020-11-12 09:45] LABS: Anisocytosis 3+; Blood Morphology Comment NOTED (NOT SEEN); Hypochromasia 1+; Platelet Estimate DECR; Target Cells 1+; White Blood Cell Scan OK (OK)
[2020-11-12 17:58] LABS: Basophils % 0.9 % (0-1.3); Hematocrit 24.6 % (36.0-45.0); Lymphocytes % 20.1 % (15.3-44.8); MPV 8.1 fL (7.6-11.3); RBC Red Blood Cell Count 2.75 M/uL (3.86-4.86)
[2020-11-12 18:04] LABS: ALT/SGPT 21 U/L (12-78); AST/SGOT 48 U/L (15-37); Albumin 2.8 g/dL (3.4-5.0); Alkaline Phosphatase 118 U/L (45-117); BUN Blood Urea Nitrogen 3 mg/dL (7-18); Bicarbonate 28 mmol/L (21-32); Bilirubin Total 1.2 mg/dL (0.2-1.0); Glucose Level 123 mg/dL (74-106); Protein, Total 6.3 g/dL (6.4-8.2); Sodium Level 139 mmol/L (136-145)
[2020-11-12 18:05] LABS: Magnesium 1.3 mg/dL (1.8-2.4); Potassium 2.9 mmol/L (3.5-5.1)
[2020-11-12] MEDS: KCL 20 MEQ/100 mL IVPB 20 MEQ/100 ML BAG IV SCH ×3 (19:13→23:00)
[2020-11-12] MEDS ORDERED: Magnesium Sulfate 2gm IVPB 2 G/50 ML BAG IV ONE (19:30)
[2020-11-12] MEDS ORDERED: POTASSIUM CL SA 10 MEQ TAB PO ONE (23:12)
--- NOTE | 2020-11-12 23:22 | CON ---
Reason For Consultation: Consultation called because of new recent onset seizure. History Of Present Illness: Ms. Garcia is a 40-year-old right-handed patient, who came to [facility] after a witnessed seizure. She was having nausea, vomiting, and diarrhea over a week, and the event occurred after that. Reportedly, she had swelling and numbness in her fe et of unclear etiology and her son brought her in for that. While in the waiting room, the patient h ad tremors in the upper extremities and became unresponsive, and had some vomiting. She remained unr esponsive for about 5 minutes and then began to respond again, but did not come back to her baseline until about 45 minutes later. There was no tongue biting or loss of urine control. The patient's bl ood work revealed severe hypokalemia with a potassium of 2.6 and it should actually be noted on [facility] 2019, she also had severe hypokalemia at that time when she presented with nausea, but there was no seizure activity. In parallel with hypokalemia, there was hypomagnesemia of 1.3. Her head CT scan showed no acute ischemic or hemorrhagic change; however, the brain MRI identified several areas of chronic ischemic change, which is felt to be unexpected for the patient's young age of 40, raisin g the possibility of other etiologies such as demyelinating disease, migraine, or vasculitis. At the time of my evaluation, the patient was having an echocardiogram done. The results are still pending . She had an electrocardiogram that showed normal sinus rhythm. Chest, abdomen, and pelvis CT scan identified a 4 x 1 cm ill-defined low-density area in the posterior segment of the right lobe of the liver, which may represent focal fatty infiltrate and also noted the laceration may have this appeara nce. Past Medical History: No significant past medical history. Past Surgical History: None. Allergies: NO KNOWN DRUG ALLERGIES. Social History: Denies alcohol, but reports smoking cigarettes daily. Denies illegal drug use. Family History: Noncontributory. Review of Systems: Aside from mentioned, she had no myalgias, arthralgias, rash, or weight change. No psychiatric issue s with nausea and vomiting. Physical Examination: Vital Signs: Blood pressure 160/76, pulse 83, respiratory rate 18, temperature 98.6, oxygen saturati on 99%. General: Ms. Garcia is resting in bed. She is again having echo done. She is in no acute distress . HEENT: She is normocephalic, atraumatic. Sclerae anicteric. Oropharynx is pink and moist. Neck: Supple. Chest: Clear. Heart: Regular. Extremities: No edema or cyanosis. Neurologic: She is alert and oriented to situation, place, and person. Follows commands appropriate ly. Cranial nerves 2 through 12 show no focal deficits. Motor exam in the upper and lower extremiti es, no focal deficits there. Sensory exam, intact to light touch and temperature in the arms and leg s. Coordination intact to upper and lower extremities. She will be ambulated once echo is done by [facility]. Laboratory Data: Otherwise, her complete blood count with differential when she arrived showed a sev ere anemia with hemoglobin 7.5, she did have a repeat done subsequently that showed it to be 8.0; whi te blood cell count normal after it was initially elevated to 11.5, possibly related to demargination after an acute seizure; otherwise platelet are 105. Chemistries shows again potassium 2.6, sodium 1 38, chloride 102, carbon dioxide 28, BUN is 1, creatinine 0.26, total bilirubin elevated at 1.8, AST 50, ALT 20, and alkaline phosphatase 121. Her procalcitonin is less than 0.05. Lactic acid normal a t 1.8. Urinalysis shows 20 to 50 red blood cells, negative nitrite, negative esterase. She has stro ke in the young panel pending. COVID is negative. Influenza A and B negative. Assessment: Ms. Garcia is a 40-year-old patient with new onset seizure in the setting of severe hyp okalemia, hypomagnesemia, and anemia. She has had a prior admission with severe hypokalemia. She douglass d nausea and vomiting of unclear etiology. No evidence of drug use in the laboratory testing. The MRI shows multiple areas of chronic small vessel ischemic disease of unclear etiology with a dif ferential of migraine versus demyelinating condition versus vasculitis. Plan: 1.She should be on aspirin 81 mg daily. 2.Folic acid 1 mg daily. 3.She has received Keppra 500 mg IV every 12 hours. May actually discontinue Keppra as she likely r equires electrolyte replacement, which may have been changed or lowered her seizure threshold. Once discharged tomorrow if possible, routine electroencephalogram should be done. 4.Once discharged, she should follow up in Dr. Garcia's clinic 1 month later. MARYAN Voice ID: [id number] Report ID: [id number]
[2020-11-13 00:11] VITALS: O2SAT 99
[2020-11-13 01:26] LABS: C-Reactive Protein 45.4 mg/L (<3.00); Folic Acid, (Folate) 2.8 ng/mL (3.1-17.5); Thyroid Stimulating Hormone 1.52 uIU/mL (0.360-3.740)
[2020-11-13] MEDS: levETIRAcetam 500 MG in NA CHLORIDE 0.9% 100 ML IV SCH (05:09)
[2020-11-13 06:10] LABS: BUN Blood Urea Nitrogen 2 mg/dL (7-18); Bicarbonate 27 mmol/L (21-32); Glucose Level 81 mg/dL (74-106); Magnesium 1.7 mg/dL (1.8-2.4); Potassium 2.9 mmol/L (3.5-5.1); Sodium Level 141 mmol/L (136-145)
[2020-11-13] MEDS ORDERED: Magnesium Sulfate 2gm IVPB 2 G/50 ML BAG IV ONE (07:36)
[2020-11-13] MEDS ORDERED: POTASSIUM 25 MEQ EFFERV TAB PO ONE (07:36)
--- NOTE | 2020-11-13 08:43 | ECHO ---
HEIGHT: 5 ft 2 in WEIGHT: 110 lb 0.171 oz DATE OF STUDY: 11/12/[address]: Diego Sharif MD 2-DIMENSIONAL: YES M.MODE: YES DOPPLER: YES COLOR FLOW: YES TDS: NO PORTABLE: NO DEFINITY: NO BUBBLE STUDY: NO DIAGNOSIS: CONGESTIVE HEART FAILURE CARDIAC HISTORY: CATHERIZATION: NO SURGERY: NO PROSTHETIC VALVE: NO PACEMAKER: NO MEASUREMENTS (cm) DIASTOLIC (NORMALS) SYSTOLIC (NORMALS) IVSd 1.2 (0.6-1.2) LA Diam 2.5 (1.9-4.0) LVEF 56% LVIDd 3.1 (3.5-5.7) LVIDs 2.2 (2.0-3.5) %FS 28% LVPWd 1.4 (0.6-1.2) Ao Diam 2.4 (2.0-3.7) 2 DIMENSIONAL ASSESSMENT: RIGHT ATRIUM: NORMAL LEFT ATRIUM: NORMAL RIGHT VENTRICLE: NORMAL LEFT VENTRICLE: NORMAL TRICUSPID VALVE: NORMAL MITRAL VALVE: NORMAL PULMONIC VALVE: NORMAL AORTIC VALVE: NORMAL PERICARDIAL EFFUSION: NONE AORTIC ROOT: NORMAL LEFT VENTRICULAR WALL MOTION: NORMAL DOPPLER/COLOR FLOW: NORMAL COMMENTS: NORMAL LEFT VENTRICULAR EJECTION FRACTION 55-60%. NORMAL WALL MOTION. TECHNOLOGIST: Archana CABRERA
[2020-11-13] MEDS ORDERED: SOD FERRIC GLUC COMPLX/SUCROSE 125 MG in NA CHLORIDE 0.9% 100 ML IV SCH (09:00)
[2020-11-13] MEDS ORDERED: FOLIC ACID 5 MG/ML VIAL IVP SCH (09:00)
--- NOTE | 2020-11-13 09:16 | EEG ---
CHART: [id number] TEST ID#: [id number] DATE OF STUDY: 11/12/2020 THE EEG WAS RECORDED PORTABLE IN THE EMERGENCY ROOM ON A 17 CHANNEL MACHINE. ELECTRODES WERE APPLIED IN THE USUAL MANNER USING THE INTERNATIONAL 10-20 SYSTEM. THE WAKING BACKGROUND RHYTHM IN THIS RECORD CONSISTS OF FAIRLY WELL DEVELOPED AND FAIRLY WELL ORGANIZED WAVES OF 10 HZ., MAXIMAL IN THE POSTERIOR HEAD REGIONS WHICH ATTENUATE NORMALLY WITH EYE OPENING. LOW-VOLTAGE 18-22 HZ ACTIVITY IS EXPRESSED IN THE FRONTAL REGIONS. THERE ARE NO FOCAL OR LATERALIZING FEATURES. NO EPILEPTIFORM ACTIVITY APPEARS. SLEEP OCCURRED NATURALLY. IN ADDITION NORMAL SLEEP PATTERNS ARE PRESENT. HYPERVENTILATION WAS NOT PERFORMED. PHOTIC STIMULATION PRODUCED NO DRIVING BILATERALLY. IMPRESSION: NORMAL EEG FOR THE AGE OF THE PATIENT IN [place], DROWSINESS AND SLEEP.
[2020-11-13] MEDS ORDERED: FOLIC ACID 1 MG in NA CHLORIDE 0.9% 50 ML IV SCH (09:30)
[2020-11-13 14:09] VITALS: BP 134/86; TEMP 98
[2020-11-13 23:18] LABS: Rheumatoid Factor NEG (NEG)
--- NOTE | 2020-11-14 08:44 | P.PN ---
Subjective Date of Service: 11/12/20 Patient states she is doing well. She has no new complaints. However, her platelet count and her hemoglobin decreased. Will need to continue monitoring this as well. She also has severe folic acid deficiency as well as iron deficiency. Will need to supplement this. This could be causing a lot of her neurologic symptoms. I will continue to monitor this and I will wait for her further diagnostic studies to be completed prior to discharging her. Her echo and EEG are still pending. Review of Systems 10-point ROS is otherwise unremarkable Physical Examination - Vital Signs Temperature: 98 F Blood Pressure: 134/86 Pulse: 79 Respirations: 16 Pulse Ox (%): 100 - Physical Exam General: Alert, In no apparent distress, Oriented x3 Respiratory: Clear to auscultation bilaterally, Normal air movement Cardiovascular: Regular rate/rhythm, Normal S1 S2, No murmurs Gastrointestinal: Normal bowel sounds, Soft and benign, Non-distended, No tenderness Musculoskeletal: No clubbing, No swelling, No tenderness Neurological: Normal strength at 5/5 x4 extr, Sensation intact, Cranial nerves 3-12 intact Lymphatics: No axilla or inguinal lymphadenopathy - Studies Medications List Reviewed: Yes Assessment & Plan - Problems (Diagnosis) (1) Seizures Status: Acute (2) Nausea & vomiting Status: Acute (3) Diarrhea Status: Acute (4) Paresthesias Status: Acute (5) Facial swelling Status: Acute (6) Colitis Status: Acute (7) Anemia Status: Acute (8) Thrombocytopenia Status: Acute (9) Folic acid deficiency Status: Acute (10) Iron deficiency Status: Acute - Plan Plan: 1. EEG results pending 2. MRI of the brain showed some hyperintense abnormalities. 3. Anti epileptics 4. Neurology consultation appreciated 5. Patient supplemented with folic acid and iron. 6. Rheumatologic workup 7. Echo is pending 8. GI and DVT prophylaxis - Advance Directives Does patient have a Living Will: No Does patient have a Durable POA for Healthcare: No - Code Status/Comfort Care Code Status: Full Code Critical Care: No Time Spent Managing PTS Care (In Minutes): 35
--- NOTE | 2020-11-14 08:46 | P.DS ---
Discharge Date: 11/13/20 Disposition: ROUTINE DISCHARGE Discharge Condition: GOOD Reason for Admission: Seizure activity/patient came in for swelling of the legs and having N/V/D - Problems (1) Seizures Status: Acute (2) Nausea & vomiting Status: Acute (3) Diarrhea Status: Acute (4) Paresthesias Status: Acute (5) Facial swelling Status: Acute (6) Colitis Status: Acute (7) Anemia Status: Acute (8) Thrombocytopenia Status: Acute (9) Folic acid deficiency Status: Acute (10) Iron deficiency Status: Acute Brief History of Present Illness: Patient is a 40-year-old female came to the hospital with nausea, vomiting, and diarrhea. This been going on for the last week. She has been noticing some swelling and numbness in her feet and her face. She was worried about this so she was coming to the emergency room. She was with her son and while she was checking and she had a seizure-like activity. She started having some tremors of the upper extremity and she became unresponsive. They later on the floor and she slowly started coming around. She woke up about 5-10 min later but she was confused. Her son says that she did not come around all the way for about 45 min to 1 hr. She denies biting her tongue or she did not have incontinence of her urine. She does recall about 2 weeks ago were she had an episode were she fell she was in a deep dream, and when she woke up she had urinated on herself. She had a CT of her chest, abdomen, and pelvis which revealed a questionable area on her liver which looked like a fatty infiltrate. Concerned it was a laceration but she has no abdominal pain or no signs of bleeding internally. She also had questionable mild colitis as well as ovarian cyst. She will be admitted to the hospital for further workup. Will workup for seizure as well as a cause of her nausea, vomiting, and diarrhea. She will be admitted for observation. Hospital Course: Patient done well during hospital stay. EEG did not show any abnormalities. MRI of the brain did reveal some hyperintense areas throughout the white matter. This will need to be further followed as an outpatient with Neurology. Echocardiogram with no abnormality. Patient did have severe folic acid deficiency and this is been supplemented and will need to take this daily. Patient also with iron deficiency. Will supplement iron levels as well. Hemoglobin and platelet count are stable. Outpatient follow with PCP. Vital Signs/Physical Exam: Temp Pulse Resp BP Pulse Ox 98 F 79 16 134/86 100 11/14/20 08:44 11/14/20 08:44 11/14/20 08:44 11/14/20 08:44 11/14/20 08:44 General: Alert, In no apparent distress, Oriented x3 Laboratory Data at Discharge: WBC 5.00 K/uL (4.3-10.9) 11/12/20 17:26 Hgb 8.0 g/dL (12.0-15.0) L 11/12/20 17:26 Hct 24.6 % (36.0-45.0) L 11/12/20 17:26 Plt Count 105 K/uL (152-406) L 11/12/20 17:26 Sodium 141 mmol/L (136-145) 11/13/20 05:12 Potassium 3.6 mmol/L (3.5-5.1) 11/13/20 11:59 BUN 2 mg/dL (7-18) L 11/13/20 05:12 Creatinine 0.20 mg/dL (0.55-1.3) L 11/13/20 05:12 Glucose 81 mg/dL (74-106) 11/13/20 05:12 Magnesium 1.7 mg/dL (1.8-2.4) L 11/13/20 05:12 Total Bilirubin 1.2 mg/dL (0.2-1.0) H 11/12/20 17:26 AST 48 U/L (15-37) H 11/12/20 17:26 ALT 21 U/L (12-78) 11/12/20 17:26 Alkaline Phosphatase 118 U/L (45-117) H 11/12/20 17:26 Home Medications: Ferrous Gluconate 324 mg PO TID #90 tablet 11/13/20 Folic Acid 1 mg PO DAILY #30 tablet 11/13/20 Potassium Chloride 20 meq PO DAILY #30 tab.er.prt 11/13/20 levETIRAcetam [Keppra Tab] 500 mg PO Q12H #60 tab 11/13/20 predniSONE [Deltasone] 20 mg PO DAILY #5 tab 11/13/20 New Medications: Ferrous Gluconate 324 mg PO TID #90 tablet Folic Acid 1 mg PO DAILY #30 tablet levETIRAcetam [Keppra Tab] 500 mg PO Q12H #60 tab Potassium Chloride 20 meq PO DAILY #30 tab.er.prt predniSONE [Deltasone] 20 mg PO DAILY #5 tab Physician Discharge Instructions: OK TO DC IV AND DC HOME FOLLOW-UP WITH PRIMARY CARE PROVIDER IN 1-2 WEEKS FOLLOW-UP WITH Neurology IN 1-2 WEEKS RETURN TO THE ER IF symptoms worsen CALL or TEXT DR. HENDRICKS AT [phone] IF ANY QUESTIONS REGARDING HOSPITAL STAY. PLEASE CALL THE FLOOR AT [phone] IF ANY MEDICATION OR NURSING QUESTIONS. Diet: Regular Activity: Fall precautions Followup: Flavio Garcia MD [ASSOCIATE-ACTIVE - CAN ADMIT] - NONE,NONE [Primary Care Provider] - Time spent managing pt's care (in minutes): 35
== END 2020-11-13 15:12 | disposition home or self-care (01) | DRG 101 ==
LOC: ER 13:30 → ERHOLD 15:44 → 2ND 11-12 12:20 → OBSVTOIN 11-12 19:48
PROVIDERS: ADMIT Hospitalist; ATTEND Hospitalist
DX: R56.9 Unspecified convulsions (principal); F17.200 Nicotine dependence, unspecified, uncomplicated; K52.9 Noninfective gastroenteritis and colitis, unspecified; E87.6 Hypokalemia; D69.6 Thrombocytopenia, unspecified; E83.42 Hypomagnesemia; E53.8 Deficiency of other specified B group vitamins; K76.0 Fatty (change of) liver, not elsewhere classified; D64.9 Anemia, unspecified; N83.209 Unspecified ovarian cyst, unspecified side; R11.2 Nausea with vomiting, unspecified; R20.2 Paresthesia of skin; Z79.52 Long term (current) use of systemic steroids; Z79.899 Other long term (current) drug therapy; Z20.822 Contact with and (suspected) exposure to COVID-19
CPT/HCPCS: 0240U; 36415; 70450; 70551; 71260; 74177; 80048; 80053; 81003; 81015; 82533; 82565; 82607; 82746; 82947; 83540; 83605; 83735; 83880; 84132; 84145; 84439; 84443; 84484; 85025; 85652; 86038; 86140; 86200; 86225; 86430; 87040; 93005; 93306; 95819; 96361; 96365; 96366; 96375; 99285; G0378; J1953; J2405; J2916; J3475; J3480; J7030; J7040; J7120; Q9967

== ENCOUNTER 2022-11-25 09:24 | Emergency (ER) | payer SELFPAY ==
--- OUTSIDE RECORDS SUMMARY | 2022-11-25 09:28 | XMS REPORT | Continuity of Care Document ---
:1980 Author Organization [facility] t Address [address] [place] [address] Care Team Providers Name Role Phone Chika Rosa Attending Clinician Unavailable Payers Payer Name Policy Type Policy Number Effective Date Expiration Date S ource Problems This patient has no known problems. Allergies, Adverse Reactions, Alerts Allergy Allergy Status Severity Reaction(s) Onset Inactive Treating Comm ents Source Name Type Date Date Clinician No Known DA Active U [facility] Drug 05-12 Allergie 00:00: s 00 Medications This patient has no known medications. Procedures This patient has no known procedures. Encounters Start End Encounter Admission Attending Care Care Encounter Source Date/Time Date/Time Type Type Clinicians Facility Department ID 2022-05-12 2022-05-12 Emergency Emergency Moe, [facility] [id number] [facility] 21:57:00 21:57:00 Magr 44 2022-05-12 2022-05-12 Emergency [facility] [id number] [facility] 21:57:00 21:57:00 44 Results Test Description Test Time Test Comments Results Result Comments Source Ethanol Level 2022-05-13 02:25:00 Test Item Value Reference Range Interpretation Comme nts Ethanol (test code = ETOH) 176 mg/dL T he pharmacological response to blood alcohol levels mayvary from individual to individual. The fatal concentrationhas been reported to be >400mg/dL. Complete Blood Count Auto [id number] 22:56:00 Test Item Value Reference Range Interpretation Comments White Blood Count (test code = 4.4 x10 3/uL 4.4-10.5 N WBCT) Red Blood Count (test code = 3.86 x10 6/uL 3.75-5.20 N RBC) Hemoglobin (test code = HGBT) 12.4 g/dL 12.2-14.8 N Hematocrit (test code = HCTT) 36.6 % 36.5-44.4 N Mean Corpuscular Volume (test 94.80 fL 80.00-100.00 N code = MCV) Mean Corpuscular Hemoglobin 32.1 pg 27.0-32.5 N (test code = MCH) Mean Corpuscular HGB Conc 33.90 g/dL 32.00-37.50 N (test code = MCHC) RDW Coefficient of Variation 18.0 % 11.5-14.5 H (test code = RDWCV) Platelet Count (test code = 344.0 x10 3/uL 140.0-440.0 N PLTT) Mean Platelet Volume (test 9.3 fL code = MPV) nRBC Abs (test code = NRBCA) 0 nRBC Pct (test code = NRBCP) 0 % Comprehensive Metabolic [id number] 22:56:00 Test Item Value Reference Range Interpretation Comments SODIUM (test code = NA) 140.0 mmol/L 136.0-145.0 N Potassium,K (test code = K) 3.5 mmol/L 3.0-5.1 N Chloride (test code = CL) 106 mmol/L 98-107 N Carbon Dioxide (test code = 28 mmol/L 20-31 N CO2) Anion Gap (test code = GAP) 6 mmol/L 5-15 N Blood Urea Nitrogen (test code 9 mg/dL 9-23 N = BUN) Creatinine (test code = CREATT) 0.60 mg/dL 0.55-1.02 N Creatinine Clr Calc Pharmacy 102.84 mL/min (test code = CRCLPHA) Estimated GFR ( Lily > 60 mL/min/1.73m2 (test code = EGFRAA) Estimated GFR (Non Afr Lily > 60 mL/min/1.73m2 (test code = EGFRNAA) BUN/Creatinine Ratio (test code 15 ratio 10-20 N = BCRATIO) Glucose (test code = GLU) 79 mg/dL 74-106 N Osmolality,Calculated (test 287.2 code = OSMOC) Calcium (test code = CA) 8.6 mg/dL 8.3-10.6 N Bilirubin,Total (test code = 0.5 mg/dL 0.2-1.1 N BILIT) Aspartate Amino Transferase 44 U/L 0-34 H (test code = AST) Alanine Aminotransferase (test 13 U/L 10-49 N code = ALT) Total Protein (test code = TP) 7.7 g/dL 5.7-8.2 N Albumin Level (test code = ALB) 4.4 g/dL 3.2-4.8 N Globulin (test code = GLOB) 3.3 mg/dL 2.3-3.5 N Albumin/Globulin Ratio (test 1.3 ratio 0.8-2.0 N code = AGRATIO) Alkaline Phosphatase (test code 106 U/L 46-116 N = ALP) Ethanol [id number] 22:56:00 Test Item Value Reference Range Interpretation Comments Ethanol (test code 242 mg/dL The pharm acological = ETOH) response to blo od alcohol levels mayvary from individual to i ndividual. The fatal ginna ntrationhas been reported t o be >400mg/dL. Manual Differential, [id number] 22:56:00 Test Item Value Reference Range Interpretation Comments Neutrophils % (Manual) (test 41 % code = NEUT%M) Lymphocytes % (Manual) (test 48.0 % 12.0-44.0 H code = LYMPH%M) Reactive Lymphocytes (Manual) 1 % (test code = LYMPATYP%M) Monocytes % (Manual) (test code 7.0 % 0.0-11.0 N = MONO%M) Eosinophils % (Manual) (test 2 % code = EOS%M) Myelocytes % (Manual) (test code 1 % 0-0 H = MYELO%M) Neutrophils # (Manual) (test 1.8 x10 3/uL 1.6-7.4 N code = NEUT#M) Lymphocytes # (Manual) (test 2.2 x10 3/uL 0.5-4.6 N code = LYMPH#M) Monocytes # (Manual) (test code 0.3 x10 3/uL 0.0-1.2 N = MONO#M) Eosinophils # (Manual) (test 0.088 code = EOS#M) Platelet Estimate (test code = Adequate Normal PLTEST) RBC Morphology (test code = RM) Abnormal Normal Anisocytosis (test code = ANISO) 1+ None Seen A HCG, Serum Quant (LAB)2022-05-12 22:56:00 Test Item Value Reference Range Interpretation Comments HCG, Serum Quant < 2.60 mIU/mL < 2.6Expec mamie (LAB) (test code = ValuesNon - HCG) Females (Age 17 -54) < 4.2 mIU/mLPost Menopausal Fema les (Age >41) 1. 8-10.1 mIU/mL Drug Screen,[id number] 22:52:00 Test Item Value Reference Range Interpretation Comments PCP Phencyclidine Screen,Urine (test Negative Negative code = PCPU) Amphetamine Screen,Urine (test code Negative Negative = AMPU) Methadone Screen,Urine (test code = Negative Negative METHU) Opiate Screen,Urine (test code = Negative Negative UOPIS) Barbituates Screen,Urine (test code Negative Negative = BARBU) Benzodiazepines Screen,Urine (test Negative Negative code = UBENZS) Cocaine Screen,Urine (test code = Negative Negative UCOCS) Cannabinoid Screen,Urine (test code Negative Negative = UTHCS) Propoxyphene Screen, Urine (test Negative Negative code = UPROP) Coronavirus PCR, COVID19 [id number] 22:52:00 Test Item Value Reference Range Interpretation Comments Coronavirus PCR, For use under Emergency COVID19 Rapid (test Use Authorization (EUA) code = SARSCOV2) only. Coronavirus PCR, Reference Range: COVID19 Rapid (test Negative code = WKLCUDU40.1) SARS-CoV-2 PCR Result: Negative by RT-PCR (test code = SARS-CoV-2 PCR Result:) COVID-19 Status: AsymptomaticUA, Urinalysis Rflx Cult/[id number] 22:52:00 Test Item Value Reference Range Interpretation Comments Color,Urine (test code = UCOL) Yellow Yellow Clarity,Urine (test code = Clear Clear UCLAR) Ph, Urine (test code = UPH) 6.0 5.0-9.0 N Specific [place],Urine (test 1.020 1.005-1.030 N code = USG) Blood,Urine (test code = UBLD) Negative mg/dL Negative Protein,Urine (test code = 100 mg/dL Negative A UPRO) Glucose,Urine (UA) (test code Negative mg/dL Negative = UGLU) Ketones,Urine (test code = Trace mg/dL Negative A UKET) Nitrate,Urine (test code = Negative Negative UNIT) Bilirubin,Urine (test code = Negative mg/dL Negative UBIL) Urobilinogen,Urine (test code 1.0 E.U./dL Normal = UURO) Leukocyte Esterase,Urine (test Trace mg/dL Negative A code = ULEU) UF REFLEXUF REFLEXUrine [id number] 22:52:00 Test Item Value Reference Range Interpretation Comments RBC,Urine (test code = URBCUF) 0-2 /HPF 0-2 WBC,Urine (test code = UWBCUF) 0-5 /HPF 0-5 Epithelial Cell,Urine (test 0-5 /HPF 0-5 code = UECUF) Casts,Urine (test code = 0-5 /LPF None Seen UCASTUF) Bacteria,Urine (test code = None Seen /hpf None Seen UBACTUF) UF REFLEXUF REFLEX
[2022-11-25] MEDS ORDERED: KETOROLAC 30 MG/ML INJ ONE (09:55)
[2022-11-25 10:18] LABS: Absolute Lymphocytes (CBC) 1.4 K/uL (0.7-4.9); Hematocrit 37.3 % (36.0-45.0); Lymphocytes % 14.8 % (15.3-44.8); MCV 86.7 fL (80-100); MPV 8.1 fL (7.6-11.3)
[2022-11-25 10:27] LABS: Albumin 3.6 g/dL (3.4-5.0); Bilirubin Total 0.5 mg/dL (0.2-1.0); Potassium 3.5 mEq/L (3.5-5.1); Protein, Total 7.8 g/dL (6.4-8.2)
--- NOTE | 2022-11-25 10:59 | RAD REPORT ---
EXAM DESCRIPTION: CT - CTFBWCON CLINICAL HISTORY: FACIAL PAIN COMPARISON: Head Brain Wo Cont dated 11/11/2020 TECHNIQUE: Axial 2 mm thick images of the face were obtained with sagittal and coronal reconstructio n images. All CT scans are performed using dose optimization technique as appropriate and may include automated exposure control or mA/KV adjustment according to patient size. FINDINGS: There is an abnormal soft tissue density lesion along the right floor of the mouth contain ing edematous fluid-like components as well as small air bubble pocket and measuring 3.3 by 3.0 cm. T here is irregular eroded appearance to the maxilla adjacent to this region. The mandible appears inta ct. Tongue base structures are also mildly edematous. Several eroded maxillary teeth present. Nasopharynx appears unremarkable. IMPRESSION: Abnormal irregular approximate 3 cm soft tissue lesion is present right for the mouth wi th erosion of adjacent maxilla. Recommend direct visualization as neoplasia is a possibility.Edematou s appearance to the tongue base is also present.
[2022-11-25] MEDS ORDERED: ONDANSETRON 4 MG/2 ML VIAL ONE (13:00)
[2022-11-25] MEDS ORDERED: MORPHINE 4 MG/ML SYR ONE (13:00)
--- NOTE | 2022-11-25 15:20 | P.HP ---
Date of Service: 11/25/22 Reason for consultation: tongue mass Requesting physician: Dr. Saunders, emergency medicine History of present illness: Ms. Garcia is a 42-year-old -[place] with no significant past medical history who presented to the emergency room with a 2-month history of mouth, throat, neck, ear, and head pain which has been progressive and was much worse over the last 3 weeks. Today it got to the point where she could no longer tolerate the pain and was concerned about a severe ear infection and sought care through the emergency room. During the course of her evaluation she underwent a CT scan of the neck with contrast which demonstrated significant abnormalities of the right oral cavity and tongue prompting ENT evaluation. The patient notes that she has had difficulty the with her speech over the last 1 to 2 months with progressively worse pain with swallowing. She denies hemoptysis. Past medical history: None Home medications: None Allergies: None Social history: Tobacco use since approximately age 22. Spouse passed in April 2022 of lung cancer Family history: Mother with gastric cancer. Physical exam patient is in no acute respiratory distress. Her vital signs are stable. Her left neck is normal. Her right neck appears mildly edematous and is tender to palpation. Her external ears, eyes, and nose is unremarkable. Her oral cavity demonstrates very mild trismus with a significantly abnormal appearing tongue. There is a 3 cm area of ulceration along the posterior lateral aspect of the right tongue with surrounding induration and areas of exophytic appearing tumor. It is difficult to visualize the tonsillar fossa due to pain and discomfort with depression of the tongue. There are no palpable Homar abnormal lymph nodes of the neck. Data: The CT scan of the neck is reviewed with the radiologist. The area of tumor appears to cross midline and involves a significant portion of the oral and base of tongue with concern for bone along the palate and right upper alveolar ridge with some irregularities in the cortex, raising suspicion for bony invasion. There are no radiologically enlarged lymph nodes. 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 I had a detailed discussion with the patient in regards to my clinical concerns. I also spoke with 2 of her family members via telephone at the patient's request in regards to her clinical condition. We discussed the options and elected for performance of a bedside biopsy to confirm the diagnosis. We discussed that treatment of tumors of this nature typically require radiation and chemotherapy and that details on prognosis very on stage. We discussed that tobacco use is likely a risk factor in development of this cancer. We also discussed that HPV can be a factor in cancers in this area especially in younger patients. I will request that p16 testing be performed on her biopsy specimen as this will influence both her staging, prognosis, and recommended treatment. Plan: Case management consultation for coordination of care and information regarding benefits as the patient is currently uninsured. The patient can be discharged home with pain medications from an ENT standpoint as there are no acute airway concerns. I will plan to contact the patient with the results of the biopsy in approximately 1 week. I provided my office phone number if the patient has any further questions or acute concerns or does not hear from us regarding the results.
[2022-11-25] MEDS ORDERED: LIDOCAINE VISCOUS 2% SOLN 15 ML UDC ONE (15:55)
[2022-11-25 16:29] VITALS: TEMP 99; O2SAT 100
[2022-11-25 16:35] VITALS: BP 145/98
--- NOTE | 2022-11-25 16:53 | EDPHYS ---
Physician Documentation [facility] Name: Brii Garcia Age: 42 yrs Sex: Female : 1980 Arrival Date: 11/25/2022 Time: : Bed 11 Private MD: ED Physician Delbert Saunders HPI: 11/25 10:08 This 42 yrs old Black Female presents to ER via Ambulatory with complaints of Headache, rt Ear Pain, Jaw Pain. 10:08 Patient presents to the ED with about 1 month with pain to the mouth, right side, rt rating to the jaw, now involving the ear starting today. She reports blistering towards the back of her mouth and on the right side of her tongue. She tried BC powders with no relief, she tried eardrops that did not help her ear pain. She denies other acute complaints at this time. Pain is aching in nature, no other aggravating or alleviating factors.. 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 - Social history:: Smoking status: Patient reports the use of cigarette tobacco products, smokes one-half pack cigarettes per day. - Family history:: not pertinent. ROS: 10:08 Constitutional: Negative for fever, chills, and weight loss, Neck: Negative for injury, rt pain, and swelling, Cardiovascular: Negative for chest pain, palpitations, and edema, Respiratory: Negative for shortness of breath, cough, wheezing, and pleuritic chest pain, Abdomen/GI: Negative for abdominal pain, nausea, vomiting, diarrhea, and constipation, Skin: Negative for injury, rash, and discoloration, Neuro: Negative for headache, weakness, numbness, tingling, and seizure, Psych: Negative for depression, anxiety, suicide ideation, homicidal ideation, and hallucinations. 10:08 ENT: Positive for Oral pain, ear pain. Exam: 10:08 ENT: Bilateral TM effusions, right greater than left, no inflammation, discharge to the rt EAC, no evidence of mastoiditis. There is blistering with small pustules posteriorly at the right mandibular region. There is a flat, papular lesion on the right side of the tongue. Oropharynx otherwise benign. 10:08 Constitutional: This is a well developed, well nourished patient who is awake, alert, rt and in no acute distress. Head/Face: Normocephalic, atraumatic. Chest/axilla: Normal chest wall appearance and motion. Nontender with no deformity. No lesions are appreciated. Cardiovascular: Regular rate and rhythm with a normal S1 and S2. No gallops, murmurs, or rubs. Normal PMI, no JVD. No pulse deficits. Respiratory: Lungs have equal breath sounds bilaterally, clear to auscultation and percussion. No rales, rhonchi or wheezes noted. No increased work of breathing, no retractions or nasal flaring. Abdomen/GI: Soft, non-tender, with normal bowel sounds. No distension or tympany. No guarding or rebound. No evidence of tenderness throughout. Skin: Warm, dry with normal turgor. Normal color with no rashes, no lesions, and no evidence of cellulitis. MS/ Extremity: Pulses equal, no cyanosis. Neurovascular intact. Full, normal range of motion. Neuro: Awake and alert, GCS 15, oriented to person, place, time, and situation. Cranial nerves II-XII grossly intact. Motor strength 5/5 in all extremities. Sensory grossly intact. Cerebellar exam normal. Normal gait. Psych: Awake, alert, with orientation to person, place and time. Behavior, mood, and affect are within normal limits. Vital Signs: 09:35 BP 148 / 111; Pulse 97; Resp 17; Temp 99; Pulse Ox 100% on R/A; Weight 62.6 kg; Height jl7 5 ft. 5 in. ; Pain 10/10; 13:08 BP 145 / 98; Pulse 87; Resp 15; Pulse Ox 100% ; Pain 10/10; jl7 09:35 Body Mass Index 22.96 (62.60 kg, 165.1 cm) jl7 09:35 Pain Scale: Adult jl7 13:08 Pain Scale: Adult jl7 MDM: 09:33 Patient medically screened. rt 16:49 Differential diagnosis: Abscess, tumor. Data reviewed: vital signs, nurses notes, lab rt test result(s), radiologic studies. Consideration of Admission/Observation Escalation of care including admission/observation considered. Management of patient was discussed with the following: Riffler Tender: Discussed with ENT who performed a biopsy at bedside. Case management provided patient with resources. No immediate indications for admission to the hospital.. I considered the following discharge prescriptions or medication management in the emergency department Medications were administered in the Emergency Department. See MAR. Independent interpretation of the following test(s) in the Emergency Department CT Scan: My interpretation is Mass visualized on interpretation of the CT scan images. Counseling: I had a detailed discussion with the patient and/or guardian regarding: the historical points, exam findings, and any diagnostic results supporting the discharge/admit diagnosis, radiology results, the need for outpatient follow up. 11/25 09:44 Order name: CBC with Diff; Complete Time: 10:36 rt 11/25 09:44 Order name: CMP; Complete Time: 10:36 rt 11/25 09:44 Order name: CT Facial Bones W/ Con \T\ Mpr; Complete Time: 11:06 rt Administered Medications: 09:55 Drug: Ketorolac IVP 30 mg Route: IVP; Site: right antecubital; jl7 10:10 Follow up: Response: No adverse reaction; Pain is decreased jl7 13:01 Drug: morphine IVP or IV 4 mg Route: IVP; Infused Over: 4 mins; Site: right antecubital;jl7 13:05 Follow up: Response: No adverse reaction; Pain is decreased jl7 13:01 Drug: Ondansetron IVP 4 mg Route: IVP; Site: right antecubital; jl7 16:08 Follow up: Response: No adverse reaction jl7 16:06 Drug: Viscous Lidocaine Mucous Membrane Liquid (4 %) 1 application Route: Mucous jl7 Membrane; 16:08 Follow up: Response: No adverse reaction; Marked relief of symptoms jl7 Disposition Summary: 11/25/22 15:32 Discharge Ordered Location: Home rt Problem: new rt Symptoms: are unchanged rt Condition: Stable rt Diagnosis - Oral mass with fluid collection rt Followup: rt - With: Maureen Frank MD - When: 5 - 6 days - Reason: Discharge Instructions: - Discharge Summary Sheet jl7 - Steps to Quit Smoking rt - Health Risks of Smoking rt Forms: - Work release form jl7 - Medication Reconciliation Form rt - Thank You Letter rt - Antibiotic Education rt - Prescription Opioid Use rt Prescriptions: - acetaminophen-codeine 300 mg-30 mg /12.5 mL Oral solution - take 12.5 milliliter by ORAL route 3 times per day as needed for pain; 262.5 rt milliliter; Refills: 0, Product Selection Permitted - Augmentin 250-62.5 mg/5 mL Oral Suspension for Reconstitution - take 15 milliliter by ORAL route every 12 hours for 10 days; 300 milliliter; rt Refills: 0, Product Selection Permitted Signatures: Dispatcher [employer] Chen Ocampo RN RN jl7 Delbert Saunders MD MD rt
--- NOTE | 2022-11-25 16:53 | ER ---
Nurse's Notes [facility] Name: Brii Garcia Age: 42 yrs Sex: Female : 1980 Arrival Date: 11/25/2022 Time: 09:27 Bed 11 Private MD: Diagnosis: Oral mass with fluid collection Presentation: 11/25 09:35 Chief complaint: Patient states: Righ ear pain x 1 month, blisters on tongue x 2 weeks, jl7 reports white spots at back of mouth, reports pain with talking and opening mouth. Coronavirus screen: At this time, the client does not indicate any symptoms associated with coronavirus-19. Ebola Screen: No symptoms or risks identified at this time. Initial Sepsis Screen: Does the patient meet any 2 criteria? No. Patient's initial sepsis screen is negative. Does the patient have a suspected source of infection? No. Patient's initial sepsis screen is negative. Risk Assessment: Do you want to hurt yourself or someone else? Patient reports no desire to harm self or others. Onset of symptoms was October 28, 2022. 09:35 Method Of Arrival: Ambulatory 7 09:35 Acuity: ANG 4 jl7 Triage Assessment: 09:37 General: Appears in no apparent distress. uncomfortable, Behavior is cooperative, jl7 appropriate for age, restless. Pain: Complains of pain in left ear and mouth Pain currently is 10 out of 10 on a pain scale. Pain began x1 month Also complains of inability to work. EENT: Oral mucosa is dry. Lesions noted. Neuro: Level of Consciousness is awake, alert, obeys commands, Oriented to person, place, time, situation. 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 - Social history:: Smoking status: Patient reports the use of cigarette tobacco products, smokes one-half pack cigarettes per day. - Family history:: not pertinent. Screenin:14 [facility] ED Fall Risk Assessment (Adult) History of falling in the last 3 months, jl7 including since admission No falls in past 3 months (0 pts) Confusion or Disorientation No (0 pts) Intoxicated or Sedated No (0 pts) Impaired Gait No (0 pts) Mobility Assist Device Used No (0 pt) Altered Elimination No (0 pt) Score/Fall Risk Level 0 - 2 = Low Risk Oriented to surroundings, Maintained a safe environment. Abuse screen: Denies threats or abuse. Denies injuries from another. Nutritional screening: No deficits noted. Tuberculosis screening: No symptoms or risk factors identified. Assessment: 12:41 Reassessment: Dr. Saunders at bedside discussing results and POC. jl7 13:15 Reassessment: Dr Neff at bedside assessing pt. jl7 Vital Signs: 09:35 BP 148 / 111; Pulse 97; Resp 17; Temp 99; Pulse Ox 100% on R/A; Weight 62.6 kg; Height jl7 5 ft. 5 in. ; Pain 10/10; 13:08 BP 145 / 98; Pulse 87; Resp 15; Pulse Ox 100% ; Pain 10/10; jl7 09:35 Body Mass Index 22.96 (62.60 kg, 165.1 cm) jl7 09:35 Pain Scale: Adult jl7 13:08 Pain Scale: Adult jl7 ED Course: 09:27 Patient arrived in ED. mr 09:29 Delbert Saunders MD is Attending Physician. rt 09:37 Triage completed. jl7 09:37 Arm band placed on right wrist. jl7 09:45 Chen Evans RN is Primary Nurse. jl7 09:55 Initial lab(s) drawn, by ia, sent to lab. Inserted saline lock: 22 gauge in right jl7 antecubital area, using aseptic technique. Blood collected. 10:14 Patient has correct armband on for positive identification. jl7 10:49 CT Facial Bones W/ Con \T\ Mpr In Process Unspecified. EDMS 15:32 Maureen Frank MD is Referral Physician. rt 16:08 No provider procedures requiring assistance completed. IV discontinued, intact, jl7 bleeding controlled, No redness/swelling at site. Pressure dressing applied. Administered Medications: 09:55 Drug: Ketorolac IVP 30 mg Route: IVP; Site: right antecubital; jl7 10:10 Follow up: Response: No adverse reaction; Pain is decreased jl7 13:01 Drug: morphine IVP or IV 4 mg Route: IVP; Infused Over: 4 mins; Site: right antecubital;jl7 13:05 Follow up: Response: No adverse reaction; Pain is decreased jl7 13:01 Drug: Ondansetron IVP 4 mg Route: IVP; Site: right antecubital; jl7 16:08 Follow up: Response: No adverse reaction jl7 16:06 Drug: Viscous Lidocaine Mucous Membrane Liquid (4 %) 1 application Route: Mucous jl7 Membrane; 16:08 Follow up: Response: No adverse reaction; Marked relief of symptoms jl7 Medication: 10:14 VIS not applicable for this client. jl7 Outcome: 15:32 Discharge ordered by . rt 16:08 Discharged to home ambulatory. jl7 16:08 Condition: stable 16:08 Discharge instructions given to patient, Instructed on discharge instructions, follow up and referral plans. medication usage, Demonstrated understanding of instructions, follow-up care, medications, Prescriptions given X 2. 16:09 Patient left the ED. jl7 Signatures: Dispatcher [employer] Josephine Ruth Jahala RN RN jl7 Delbert Saunders MD MD rt
== END 2022-11-25 16:09 | disposition home or self-care (01) ==
LOC: ER 09:24
DX: C02.9 Malignant neoplasm of tongue, unspecified (principal)
CPT/HCPCS: 36415; 70487; 76377; 80053; 85025; 88305; 96374; 96375; 99284; J2405; Q9967

== ENCOUNTER 2023-01-17 17:45 | Emergency (ER) | payer SELFPAY ==
--- OUTSIDE RECORDS SUMMARY | 2023-01-17 17:49 | XMS REPORT | Continuity of Care Document ---
:1980 Author Organization [facility] t Address [address] [place] [address] Care Team Providers Name Role Phone CARLOS GRAJEDA Attending Clinician Unavailable Chika Rosa Attending Clinician Unavailable Payers Payer Name Policy Type Policy Number Effective Date Expiration Date S ource Problems This patient has no known problems. Allergies, Adverse Reactions, Alerts Allergy Allergy Status Severity Reaction(s) Onset Inactive Treating Comm ents Source Name Type Date Date Clinician No Known DA Active U [facility] Drug 05-12 Allergie 00:00: s 00 Social History Social Habit Start Date Stop Date Quantity Comments Source Sex Assigned At [address] [facility] Medications This patient has no known medications. Procedures This patient has no known procedures. Plan of Care Planned Activity Planned Date Details Comments Source Future Scheduled 2023-05-[address] [facility] 00:00:00 (Season Ended) [code Medical Center = INFLUENZA VACCINE (Season Ended)] Future Scheduled 2023-05-[address] [facility] Test 00:00:00 (Season Ended) [code Medical Center = INFLUENZA VACCINE (Season Ended)] Future Scheduled 2022-09-[address] [facility] Test 00:00:00 (12+) [code = [facility] DEPRESSION SCREENING (12+)] Future Scheduled 2022-09-[address] [facility] Test 00:00:00 (12+) [code = Medical Center DEPRESSION SCREENING (12+)] Future Scheduled [address] [facility]00 [facility] cervix (procedure) [code = 220803872] Future Scheduled [address] [facility] 00:00:00 [facility] cervix (procedure) [code = 074954410] Future Scheduled 2001 DTAP/TDAP/TD VACCINES [facility] 00:00:00 (1 - Tdap) [code = Medical C enter DTAP/TDAP/TD VACCINES (1 - Tdap)] Future Scheduled 2001 DTAP/TDAP/TD VACCINES [facility] 00:00:00 (1 - Tdap) [code = Medical C enter DTAP/TDAP/TD VACCINES (1 - Tdap)] Future Scheduled 2000 HEPATITIS C SCREENING [facility] 00:00:00 [code = HEPATITIS C Medical Center SCREENING] Future Scheduled 2000 HEPATITIS C SCRE[facility]ING [facility] 00:00:00 [code = HEPATITIS C Medical Center SCREENING] Future Scheduled [address] [facility] Test 00:00:00 Counseling and Medical Cente r Screening (12+) [code = Tobacco Cessation Counseling and Screening (12+)] Future Scheduled [address] [facility] Test 00:00:00 Counseling and Medical Cente r Screening (12+) [code = Tobacco Cessation Counseling and Screening (12+)] Future Scheduled 1980 COVID-19 VACCINE (#1) [facility] 00:00:00 [code = COVID-[address] VACCINE (#1)] Future Scheduled 1980 COVID-19 VACCINE (#1) [facility] 00:00:00 [code = COVID-[address] VACCINE (#1)] Encounters Start End Encounter Admission Attending Care Care Encounter Source Date/Time Date/Time Type Type Clinicians Facility Department ID 2023-01-18 2023-01-18 Outpatient JUANITA GRAJEDA [facility] [id number] [facility] 00:00:00 00:00:00 CARLOS 2022-05-12 2022-05-12 Emergency [facility] [id number] [address] [place] [address] 21:57:00 21:57:00 44 2022-05-12 2022-05-12 Emergency Emergency Rassanu, [facility] [id number] [facility] 21:57:00 21:57:00 Amir 44 Results Test Description Test Time Test Comments Results Result Comments Source Ethanol Level 2022-05-13 02:25:00 Test Item Value Reference Range Interpretation Comme nts Ethanol (test code = ETOH) 176 mg/dL T he pharmacological response to blood alcohol levels mayvary from individual to individual. The fatal concentrationhas been reported to be >400mg/dL. HCG, Serum Quant (LAB)2022-05-12 22:56:00 Test Item Value Reference Range Interpretation Comments HCG, Serum Quant < 2.60 mIU/mL < 2.6Expec mamie (LAB) (test code = ValuesNon - HCG) Females (Age 17 -54) < 4.2 mIU/mLPost Menopausal Fema les (Age >41) 1. 8-10.1 mIU/mL Complete Blood Count Auto [id number] 22:56:00 Test Item Value Reference Range Interpretation [...] code = NRBCP) 0 % Comprehensive Metabolic [id number] 22:56:00 Test Item Value Reference Range Interpretation [...] 106 U/L 46-116 N = ALP) Ethanol [id number] 22:56:00 Test Item Value Reference Range Interpretation Comments Ethanol (test code 242 mg/dL The pharm acological = ETOH) response to blo od alcohol levels mayvary from individual to i ndividual. The fatal ginna ntrationhas been reported t o be >400mg/dL. Manual Differential, [id number] 22:56:00 Test Item Value Reference Range Interpretation [...] code = ANISO) 1+ None Seen A Coronavirus PCR, COVID19 [id number] 22:52:00 Test Item Value Reference Range Interpretation Comments Coronavirus PCR, For use under Emergency COVID19 Rapid (test Use Authorization (EUA) code = SARSCOV2) only. Coronavirus PCR, Reference Range: COVID19 Rapid (test Negative code = KRGYBML89.1) SARS-CoV-2 PCR Result: Negative by RT-PCR (test code = SARS-CoV-2 PCR Result:) COVID-19 Status: AsymptomaticUA, Urinalysis Rflx Cult/[id number] 22:52:00 Test Item Value Reference Range Interpretation Comments Color,Urine (test code = UCOL) Yellow Yellow Clarity,Urine (test code = Clear Clear UCLAR) Ph, Urine (test code = UPH) 6.0 5.0-9.0 N Specific [place],Urine (test 1.020 1.005-1.030 N code = USG) [...] A code = ULEU) UF REFLEXUF REFLEXUrine [id number] 22:52:00 Test Item Value Reference Range Interpretation Comments RBC,Urine (test code = URBCUF) 0-2 /HPF 0-2 WBC,Urine (test code = UWBCUF) 0-5 /HPF 0-5 Epithelial Cell,Urine (test 0-5 /HPF 0-5 code = UECUF) Casts,Urine (test code = 0-5 /LPF None Seen UCASTUF) Bacteria,Urine (test code = None Seen /hpf None Seen UBACTUF) UF REFLEXUF REFLEXDrug Screen,[id number] 22:52:00 Test Item Value Reference Range Interpretation [...]
[2023-01-17] MEDS ORDERED: ONDANSETRON 4 MG/2 ML VIAL ONE ×2 (18:18→21:04)
[2023-01-17] MEDS ORDERED: MAGNES/ALUMIN/SIMET 30ML UCUP ONE (18:18)
[2023-01-17] MEDS ORDERED: NA CHLORIDE 0.9% 1,000 ML ONE ×2 (18:18→22:38)
[2023-01-17] MEDS ORDERED: MORPHINE 4 MG/ML SYR ONE ×2 (18:18→21:04)
[2023-01-17] MEDS ORDERED: LIDOCAINE VISCOUS 2% SOLN 15 ML UDC ONE (18:18)
[2023-01-17 18:35] LABS: Absolute Lymphocytes (CBC) 1.1 K/uL (0.7-4.9); Hematocrit 38.8 % (36.0-45.0); Lymphocytes % 18.4 % (15.3-44.8); MCV 84.7 fL (80-100); MPV 7.7 fL (7.6-11.3); RBC Red Blood Cell Count 4.58 M/uL (3.86-4.86)
[2023-01-17 18:40] LABS: Specific Gravity 1.029 (1.005-1.030)
[2023-01-17 18:44] LABS: Specific Gravity 1.029 (1.005-1.030); Urine Bacteria <20 /HPF (<20); Urine Bilirubin NEGATIVE (Negative); Urine Blood Trace (Negative); Urine Clarity Turbid (Clear); Urine Color Yellow (Yellow); Urine Crystals Unidentified Few /HPF (None Seen); Urine Glucose NEGATIVE (Negative); Urine Mucus 1+ /HPF (None Seen); Urine Protein 1+ (Negative); Urine Urobilinogen 1+ (Normal); Urine pH 5.5 (5.0-7.0)
--- NOTE | 2023-01-17 20:21 | RAD REPORT ---
EXAM DESCRIPTION: CT - Soft Tissue Neck W/Contr CLINICAL HISTORY: dysphagia;Sore throat Pain and swelling COMPARISON: <Comparisons> TECHNIQUE All CT scans are performed using dose optimization technique as appropriate and may includ e automated exposure control or mA/KV adjustment according to patient size. FINDINGS: There is an irregular rim enhancing masslike lesion present involving the posterior aspect of the tongue measuring approximately 4.0 x 3.6 cm. Abnormal tissue edema seen extending inferiorly to the floor of mouth. There is abnormal erosions seen involving the posterior right aspect of the maxilla. Surrounding flui d is present in this region. This fluid appears to communicate with irregular tongue lesion. IMPRESSION: Irregular rim enhancing lesion posterior tongue is noted which may be neoplastic or infe ctious. Direct visualization would be suggested.
[2023-01-17] MEDS ORDERED: POTASSIUM 25 MEQ EFFERV TAB ONE (21:45)
--- NOTE | 2023-01-17 21:51 | ER ---
Nurse's Notes [facility] Name: Brii Garcia Age: 42 yrs Sex: Female : 1980 Arrival Date: 01/17/2023 Time: 17:45 Bed 19 Private MD: Diagnosis: Neoplasm of uncertain behavior of tongue;Dysphagia, unspecified Presentation: 01/17 17:58 Chief complaint: Sister says patient has a lesion on tongue since October and pain is nj1 getting unbearable. ENT doctor had prescribed norco liquid but has not worked as good anymore. 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 Coronavirus screen: Vaccine status: Patient reports receiving the 2nd dose of the covid vaccine. Ebola Screen: Patient denies travel to an Ebola-affected area in the 21 days before illness onset. Initial Sepsis Screen: Does the patient meet any 2 criteria? No. Patient's initial sepsis screen is negative. Does the patient have a suspected source of infection? No. Patient's initial sepsis screen is negative. Risk Assessment: Do you want to hurt yourself or someone else? Patient reports no desire to harm self or others. Onset of symptoms was January 16, 2023. 17:58 Method Of Arrival: Ambulatory [facility] 17:58 Acuity: ANG 3 nj1 Triage Assessment: 01/18 01:55 General: Appears in no apparent distress. comfortable, Behavior is calm, cooperative. aa9 Pain: Complains of pain in tongue. 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 - Social history:: Smoking status: Patient reports the use of cigarette tobacco products, 2-3 per day. Screenin:27 [facility] ED Fall Risk Assessment (Adult) History of falling in the last 3 months, bp including since admission No falls in past 3 months (0 pts). Abuse screen: Denies threats or abuse. Denies injuries from another. Nutritional screening: No deficits noted. Tuberculosis screening: No symptoms or risk factors identified. Assessment: 18:05 General: SEE TRIAGE NOTE. bp 19:15 Reassessment: Patient appears in no apparent distress at this time. pt right side aa9 laying in bed, eyes closed, breathing equal and regular. 20:04 Reassessment: pt taken to CT via stretcher. aa9 20:22 Reassessment: pt c/o mouth pain, notified provider. aa9 22:29 Reassessment: pt crying, pointing at her right ear, nodded yes when asked if her right aa9 ear hurts, shakes head no when asked if morphine helped at all with the pain, notified provider. 01/18 01:37 Reassessment: Patient appears in no apparent distress at this time. report called to aaKusum Ahmadi RN. 01:45 Reassessment: pt c/o tongue pain, notified Bertha RAMIREZ see [facility] for order, [facility] aa9 at bedside. Vital Signs: 01/17 17:58 BP 139 / 106; Pulse 85; Resp 16; Temp 98.8(TE); Pulse Ox 100% ; Weight 61.69 kg; Height nj1 5 ft. 1 in. ; Pain 10/10; 20:31 BP 115 / 92; Pulse 69; Resp 17 S; Pulse Ox 98% on R/A; aa9 20:36 BP 146 / 92; Pulse 73; Resp 18 S; Pulse Ox 98% ; aa9 20:56 BP 132 / 92; Pulse 69; Resp 17 S; Pulse Ox 97% on R/A; aa9 21:00 BP 133 / 88; Pulse 80; Resp 17 S; Pulse Ox 97% on R/A; aa9 22:30 BP 152 / 93; Pulse 70; Resp 18 S; Pulse Ox 98% on R/A; aa9 23:44 BP 137 / 91; Pulse 72; Resp 18 S; Pulse Ox 97% on R/A; aa9 01/18 01:38 BP 144 / 89; Pulse 78; Resp 18; Temp 98.5(O); Pulse Ox 98% on R/A; aa9 01/17 17:58 Body Mass Index 25.70 (61.69 kg, 154.94 cm) [facility] 01/17 17:58 Pain Scale: Adult [facility] ED Course: 01/17 17:46 Patient arrived in ED. rg4 17:47 Ton Stone PA is PHCP. cp 17:47 Anirudh Hawkins DO is Attending Physician. cp 18:03 Triage completed. nj1 18:05 Arm band placed on left wrist. nj1 18:06 Margarito Catherine, RN is Primary Nurse. bp 18:27 Patient has correct armband on for positive identification. Bed in low position. Call bp light in reach. Side rails up X2. 18:27 Inserted saline lock: 20 gauge in right antecubital area, using aseptic technique. bp Blood collected. 20:10 CT Soft Tissue Neck W/contr In Process Unspecified. EDMS 21:14 Door closed. Lights dimmed. aa9 23:25 Initiated transfer to [facility], spoke with Bel Esqueda. as7 01/18 01:04 Pt accepted for transfer by Dr. Lau \T\ [id number]. wm 01:56 No provider procedures requiring assistance completed. Patient transferred, IV remains aa9 in place. Administered Medications: 01/17 18:27 Drug: GI Cocktail without - (Maalox PO Suspension 30 ml, Lidocaine Mucous bp Membrane Liquid 2 % 15 ml) Route: PO; 20:54 Follow up: Response: No adverse reaction aa9 18:27 Drug: NS 0.9% IV 1000 ml Route: IV; Rate: 1 bolus; Site: right antecubital; bp 22:17 Follow up: Response: No adverse reaction; IV Status: Completed infusion; IV Intake: aa9 1000ml 18:27 Drug: morphine IVP or IV 4 mg Route: IVP; Infused Over: 4 mins; Site: right antecubital;bp 20:54 Follow up: Response: No adverse reaction aa9 18:27 Drug: Ondansetron IVP 4 mg Route: IVP; Site: right antecubital; bp 20:54 Follow up: Response: No adverse reaction aa9 21:03 Drug: morphine IVP or IV 4 mg Route: IVP; Infused Over: 4 mins; Site: right antecubital;aa9 22:17 Follow up: Response: No adverse reaction aa9 21:03 Drug: Ondansetron IVP 4 mg Route: IVP; Site: right antecubital; aa9 22:17 Follow up: Response: No adverse reaction aa9 21:45 Drug: Potassium PO Effervescent Tablet 50 mEq Route: PO; aa9 22:17 Follow up: Response: No adverse reaction aa9 22:29 Drug: Rocephin IV 1 grams Route: IV; Rate: calculated rate; Site: right antecubital; aa9 22:37 Follow up: Response: No adverse reaction; IV Status: Completed infusion; IV Intake: [id number] 22:37 Drug: fentaNYL (PF) IVP 25 mcg Route: IVP; Site: right antecubital; aa9 22:37 Drug: NS 0.9% IV 1000 ml Route: IV; Rate: 250 ml/hr; Site: right antecubital; aa9 01/18 01:56 Follow up: Response: No adverse reaction; IV Status: Completed infusion; IV Intake: aa9 1000ml 01:56 Drug: HYDROmorphone IVP 1 mg Route: IVP; Site: right antecubital; aa9 Medication: 01:56 VIS not applicable for this client. aa9 Intake: 01/17 22: IV: 1000ml; Total: 1000ml. aa9 22:37 IV: 10ml; Total: 1010ml. aa9 01/18 01:56 IV: 1000ml; Total: 2010ml. aa9 Outcome: 01/17 21:50 ER care complete, transfer ordered by MD. maurice 01/18 01:57 Transferred by ground EMS to [facility], Transfer form completed. aa9 Condition: stable Instructed on the need for transfer. 01:58 Patient left the ED. aa9 Signatures: Dispatcher [employer] EDMS Ton Stone PA PA cp Garcia, Rubi rg4 Margarito Catherine RN RN bp Marsh, Wendy wm Avalos, Aylin, RN RN aa9 Sara Myles as7 Ella Reyes RN RN nj1 Corrections: (The following items were deleted from the chart) 01/17 18:08 17:58 Pulse 85bpm; Resp 16bpm; Pulse Ox 100%; Temp 98.8F Temporal; 61.69 kg; Height 5 nj1 ft. 1 in.; BMI: 25.7; Pain 10/10, Adult; nj1 22:30 22:24 Reassessment: Patient appears in no apparent distress at this time. Patient aa9 and/or family updated on plan of care and expected duration. Pain level reassessed. Patient is alert, oriented x 3, equal unlabored respirations, skin warm/dry/pink. aa9 01/18 01:57 01:57 Instructed on the need for admit, aa9 aa9
--- NOTE | 2023-01-17 21:51 | EDPHYS ---
Physician Documentation [facility] Name: Brii Garcia Age: 42 yrs Sex: Female : 1980 Arrival Date: 01/17/2023 Time: 17:45 Bed 19 Private MD: ED Physician Anirudh Hawkins HPI: 01/17 18:05 This 42 yrs old Black Female presents to ER via Ambulatory with complaints of Mouth cp Problem. 18:05 The patient presents with pain. The problem is located in the tongue and right side of cp mouth. Onset: The symptoms/episode began/occurred for past several months. 18:05 Duration: The symptoms are continuous, and are steadily getting worse. Patient is a cp 42-year-old female who presents to the emergency department with complaints of worsening throat and tongue pain. Patient reports she was diagnosed with a mass of the right side of the tongue several months ago, October of this year, had a biopsy that confirmed cancer. Patient reports she is in the process of obtaining insurance and so she has not had follow-up but is scheduled to see a physician at [facility] in the coming days. Patient comes in today with increasing pain and difficulty swallowing. Reports she is tolerating fluids but not solid foods. 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 - Social history:: Smoking status: Patient reports the use of cigarette tobacco products, 2-3 per day. ROS: 18:10 Constitutional: Positive for poor PO intake, Negative for body aches, chills, fever. cp 18:10 Cardiovascular: Negative for chest pain, palpitations. cp 18:10 Eyes: Negative for injury, pain, redness, and discharge. cp 18:10 ENT: Positive for difficulty swallowing, ear pain, sore throat, Negative for drainage cp from ear(s), difficulty handling secretions. 18:10 Respiratory: Negative for cough, shortness of breath, wheezing. 18:10 Abdomen/GI: Negative for abdominal pain, vomiting, diarrhea, constipation. 18:10 Skin: Negative for cellulitis, rash. 18:10 Neuro: Negative for altered mental status, dizziness, headache, weakness. 18:10 All other systems are negative. Exam: 18:15 Constitutional: The patient appears in no acute distress, alert, awake, non-toxic, well cp developed, well nourished, in obvious pain, uncomfortable. 18:15 Head/face: Noted is swelling, that is mild, of the right mandible and left lateral cp neck. 18:15 Eyes: Periorbital structures: appear normal, Pupils: equal, round, and reactive to light and accomodation, Extraocular movements: intact throughout, Conjunctiva: normal, no exudate, no injection, Sclera: no appreciated abnormality, Lids and lashes: appear normal, bilaterally. 18:15 ENT: External ear(s): are unremarkable, Ear canal(s): are normal, clear, TM's: dullness, bilaterally, Nose: is normal, Mouth: Lips: moist, Oral mucosa: moist, Tongue: is swollen, tender, exudate noted posterior right side, drooling, is not appreciated, Posterior pharynx: Airway: patent, Uvula: midline, swelling, moderate right side, erythema, that is moderate, right side, exudate, that is moderate, right side, Voice: is hoarse. 18:15 Neck: ROM/movement: limited range of motion, is not appreciated, Meningeal signs: are not present, nuchal rigidity, is not appreciated, Lymph nodes: lymphadenopathy is appreciated, right side neck. 18:15 Chest/axilla: Inspection: normal. 18:15 Cardiovascular: Rate: normal, Rhythm: regular, Edema: is not appreciated, JVD: is not appreciated. 18:15 Respiratory: the patient does not display signs of respiratory distress, Respirations: normal, no use of accessory muscles, no retractions, labored breathing, is not present, Breath sounds: are clear throughout, no decreased breath sounds, no stridor, no wheezing. 18:15 Abdomen/GI: Inspection: abdomen appears normal, Bowel sounds: active, all quadrants, Palpation: abdomen is soft and non-tender, in all quadrants. 18:15 Back: pain, is absent, ROM is normal. 18:15 Neuro: Orientation: to person, place \T\ time. Mentation: is normal, Cerebellar function: is grossly normal, Motor: moves all fours, strength is normal, Sensation: is normal, Gait: is steady, at a normal pace, without difficulty. Vital Signs: 17:58 BP 139 / 106; Pulse 85; Resp 16; Temp 98.8(TE); Pulse Ox 100% ; Weight 61.69 kg; Height nj1 5 ft. 1 in. ; Pain 10/10; 20:31 BP 115 / 92; Pulse 69; Resp 17 S; Pulse Ox 98% on R/A; aa9 20:36 BP 146 / 92; Pulse 73; Resp 18 S; Pulse Ox 98% ; aa9 20:56 BP 132 / 92; Pulse 69; Resp 17 S; Pulse Ox 97% on R/A; aa9 21:00 BP 133 / 88; Pulse 80; Resp 17 S; Pulse Ox 97% on R/A; aa9 22:30 BP 152 / 93; Pulse 70; Resp 18 S; Pulse Ox 98% on R/A; aa9 23:44 BP 137 / 91; Pulse 72; Resp 18 S; Pulse Ox 97% on R/A; aa9 01/18 01:38 BP 144 / 89; Pulse 78; Resp 18; Temp 98.5(O); Pulse Ox 98% on R/A; aa9 01/17 17:58 Body Mass Index 25.70 (61.69 kg, 154.94 cm) nj1 01/17 17:58 Pain Scale: Adult nj1 MDM: 01/17 18:06 Patient medically screened. 20:00 Differential diagnosis: dental caries, pharyngeal abscess, sepsis. 22:10 Data reviewed: vital signs, nurses notes, lab test result(s), radiologic studies, CT cp scan. 22:10 I considered the following discharge prescriptions or medication management in the emergency department Medications were administered in the Emergency Department. See MAR. Historians other than the Patient: Family Member: Sister provides HPI. Counseling: I had a detailed discussion with the patient and/or guardian regarding: the historical points, exam findings, and any diagnostic results supporting the discharge/admit diagnosis, lab results, radiology results. Response to treatment: the patient's symptoms have mildly improved after treatment. 22:10 ED course: spoke with DR Frank who recommends transfer for higher level of care to include oncology evaluation. 01/18 01:05 ED course: accepting physician will be DR Lau, hospitalist \T\[facility], cp after discussion of today's results. 01/17 18:00 Order name: CBC with Diff; Complete Time: 19:02 01/17 19:02 Interpretation: Normal except: MCH 26.8; MCHC 31.7; RDW 16.8. 01/17 18:00 Order name: BMP; Complete Time: 19:02 01/17 19:03 Interpretation: Normal except: NA 134; K 3.0; BUN 6. 01/17 18:00 Order name: Urinalysis W/Microscopic; Complete Time: 19:02 01/17 19:03 Interpretation: Normal except: UCLA Turbid; UKET TRACE; UBLD Trace; UPROT 1+; UUROB 1+; cp UESTR 75; UWBC 10-20; URBC 5-10. 01/17 18:00 Order name: PREGU; Complete Time: 19:02 01/17 18:48 Order name: Urine Culture EDMS 01/18 00:38 Order name: SARS RAPID 01/17 19:04 Order name: CT Soft Tissue Neck W/contr; Complete Time: 22:09 01/17 20:57 Interpretation: Report reviewed. 01/17 18:00 Order name: IV; Complete Time: 18:28 cp Administered Medications: 01/17 18:27 Drug: GI Cocktail without - (Maalox PO Suspension 30 ml, Lidocaine Mucous bp Membrane Liquid 2 % 15 ml) Route: PO; 20:54 Follow up: Response: No adverse reaction aa9 18:27 Drug: NS 0.9% IV 1000 ml Route: IV; Rate: 1 bolus; Site: right antecubital; bp 22:17 Follow up: Response: No adverse reaction; IV Status: Completed infusion; IV Intake: aa9 1000ml 18:27 Drug: morphine IVP or IV 4 mg Route: IVP; Infused Over: 4 mins; Site: right antecubital;bp 20:54 Follow up: Response: No adverse reaction aa9 18:27 Drug: Ondansetron IVP 4 mg Route: IVP; Site: right antecubital; bp 20:54 Follow up: Response: No adverse reaction aa9 21:03 Drug: morphine IVP or IV 4 mg Route: IVP; Infused Over: 4 mins; Site: right antecubital;aa9 22:17 Follow up: Response: No adverse reaction aa9 21:03 Drug: Ondansetron IVP 4 mg Route: IVP; Site: right antecubital; aa9 22:17 Follow up: Response: No adverse reaction aa9 21:45 Drug: Potassium PO Effervescent Tablet 50 mEq Route: PO; aa9 22:17 Follow up: Response: No adverse reaction aa9 22:29 Drug: Rocephin IV 1 grams Route: IV; Rate: calculated rate; Site: right antecubital; aa9 22:37 Follow up: Response: No adverse reaction; IV Status: Completed infusion; IV Intake: [id number] 22:37 Drug: fentaNYL (PF) IVP 25 mcg Route: IVP; Site: right antecubital; aa9 22:37 Drug: NS 0.9% IV 1000 ml Route: IV; Rate: 250 ml/hr; Site: right antecubital; aa9 01/18 01:56 Follow up: Response: No adverse reaction; IV Status: Completed infusion; IV Intake: aa9 1000ml 01:56 Drug: HYDROmorphone IVP 1 mg Route: IVP; Site: right antecubital; aa9 Disposition: 01/17 20:30 Co-signature as Attending Physician, nAirudh TUCKER was immediately available on-site ms3 in the Emergency Department for consultation in the care of the patient. Disposition Summary: 01/17/23 21:50 Transfer Ordered Transfer Location: [facility] cp Reason: Higher level of care cp Condition: Stable cp Problem: an ongoing problem cp Symptoms: have improved cp Accepting Physician: DR Lau(01/18/23 01:58) aa9 Diagnosis - Neoplasm of uncertain behavior of tongue cp - Dysphagia, unspecified cp Forms: - Medication Reconciliation Form cp - SBAR form cp Signatures: Dispatcher [employer] EDMS Ton Stone PA PA cp Peltier, Brian RN Anirudh Keys DO DO ms3 Roya Merchant RN RN aa9 Ella Reyes RN RN nj1 Corrections: (The following items were deleted from the chart) 01/18 00:46 01/17 21:50 Doctor cp cp 01/18 01:58 00:46 DR Lau [facility] 05/18 01:15 05/16 18:05 Onset: The symptoms/episode began/occurred chronically, cp cp
[2023-01-17] MEDS ORDERED: CEFTRIAXONE 1000 MG/VIAL ONE (22:25)
[2023-01-17] MEDS ORDERED: FENTANYL CITR 100 MCG/2 ML ONE (22:38)
[2023-01-18 01:05] LABS: SARS-CoV-2 Antigen Rapid Res Negative (Negative)
[2023-01-18] MEDS ORDERED: HYDROMORPHONE HCL 1 MG/ML INJ ONE (01:59)
[2023-01-18 02:16] VITALS: BP 144/89; TEMP 98.5; O2SAT 98
== END 2023-01-18 01:58 | disposition short-term general hospital (02) ==
LOC: ER 17:45
DX: D37.02 Neoplasm of uncertain behavior of tongue (principal)
CPT/HCPCS: 36415; 70491; 80048; 81001; 81025; 85025; 87086; 87088; 87811; J0696; J1170; J2405; J3010; J7030; Q9967

== ENCOUNTER 2023-03-29 05:03 | Emergency (ER) | payer OTHER ==
[~2023-03-29 05:03] MED LIST: FENTANYL CITR 100 MCG/2 ML ONE; NA CHLORIDE 0.9% 100 ML ONE; NA CHLORIDE 0.9% 250 ML ONE; ONDANSETRON 4 MG/2 ML VIAL ONE; PIPERACIL/TAZO 3.375 GM VIAL IV ONE; VANCOMYCIN 1 GM/VIAL ONE
--- OUTSIDE RECORDS SUMMARY | 2023-03-29 05:11 | XMS REPORT | Continuity of Care Document ---
:1980 Author Organization [facility] t Address [address] [place] [address] Care Team Providers Name Role Phone SUSANNA WICK Attending Clinician Unavailable CARLOS GRAJEDA Attending Clinician Unavailable Nicci KHALIL, Carlos Diaz Attending Clinician [phone] YENIFER MALLOY Attending Clinician Unavailable Lillian KHALIL, Jose Kelley Attending Clinician Demetrius Dugan MD Attending Clinician Shantanu KHALIL, Yash Maurer Attending Clinician [phone] Alvin Alcala Attending Clinician Unavailable Maryann Mclean MD Attending Clinician Susanna Wick MD Attending Clinician Abdoulaye Johnson MD Attending Clinician ABDOULAYE JOHNSON Attending Clinician Unavailable Eloisa XIE, Gypsy Attending Clinician Unavailable Yenifer Malloy Attending Clinician Birdie SANDRA, Aruna Attending Clinician Unavailable PRABHA WINN Attending Clinician Unavailable Tatum RAMIREZ, Prabha Flores Attending Clinician [phone] Yolanda KAHLIL, Mindy Cobb Attending Clinician [phone] Kurt ARCE, Jolynn Attending Clinician Unavailable KIMBERLI FABIAN Attending Clinician Unavailable Judit Lau Attending Clinician Meño KHALIL, Mariaa Vitale Attending Clinician Mariela KHALIL, Kimberli Ventura Attending Clinician Chika Rosa Attending Clinician Unavailable SUSANNA WICK Admitting Clinician Unavailable JUDIT LAU Admitting Clinician Unavailable Payers Payer Name Policy Type Policy Number Effective Date Expiration Date S ource [employer]ICAID OF [place] [id number] 2022 00:00:00 Problems Condition Condition Condition Status Onset Resolution Last Treating Co mments Source Name Details Category Date Date Treatment Clinician Date 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 Oral phase Oral phase Disease Recurre [facility] dysphagia dysphagia nce - [facility] 00:00: Medical 00 [place] Oropharyng Oropharyng Disease Active [facility] eal cancer eal cancer 01-18 [facility] 00:00: Medical 00 Center Allergies, Adverse Reactions, Alerts Allergy Allergy Status Severity Reaction(s) Onset Inactive Treating Comm ents Source Name Type Date Date Clinician HYDROCOD Allergy Active High Other [facility] 6-20 [facility] 00[facility]: [facility] 00 Center Hydrocod Drug Active Other (See Headaches [facility] one Allergy Comments) 6-20 [facility] 00:[facility]: Medical 00 [place] No Known DA Active [facility] 05-12 Allergie 00:00: s 00 NO KNOWN Allergy Active [facility] Family History Family Member Diagnosis Comments Start Date Stop Date Source Natural father Lung cancer [facility] Maternal aunt Cancer [facility] Maternal uncle Prostate cancer [facility] Maternal uncle Kidney failure [facility] Natural mother Stomach cancer [facility] Social History Social Habit Start Date Stop Date Quantity Comments Source History of tobacco Cigarette Smoker [facility] History [facility] Non-Med Medical Center Alcohol intake 2023-03-08 2023-03-08 Ex-drinker [facility] 00:[facility]:00 00:00:00 (finding) Medical Center Exposure to 2023-02-22 2023-03-04 Not sure [facility] SARS-CoV-2 (event) 00:00:00 02:06:00 Medica l Center [facility] 2023-03-04 2023-03-04 [address] [facility] Transport Med 00:00:00 00:00:[address] History [facility] 2023-03-04 2023-03-04 [address] [facility] Housing Unable to 00:00:00 00:00:00 Medical Center Pay History [facility] 2023-03-04 2023-03-04 [address] [facility] Housing Places 00:00:00 00:00:00 Medical Ce nter Lived History [facility] 2023-03-04 2023-03-04 [address] [facility] Homeless 00:00:00 00:00:00 Medical Center Last Year Cigarettes smoked 2023-02-23 2023-02-23 [facility] current (pack per 00:00:00 00:00:00 Medical Center day) - Reported Cigarette 2023-02-23 2023-02-[address] [facility] pack-years 00:00:00 00:00:00 Medical Center Tobacco use and 2023-02-23 2023-02-23 Smokeless tobacco [facility] exposure 00:00:00 00:00:00 non-user Medical Center Alcohol Comment 2023-01-18 2023-01-18 every other week[facility] 00[facility] 00:00:00 1 can [facility] Sex Assigned At [address] [facility] 00:00:00 00:00:00 Medical Center Smoking Status Start Date Stop Date Source Smokes tobacco daily 2023-02-23 00:00:[address] [facility] Medications Ordered Filled Start Stop Current Ordering Indication Dosage Frequency Signature Comments Components Source Medication Medication Date Date Medication? Clinician (SIG) Name Name morphine 10 2022-0 2022- No 5mg Take 2.[address] mg/5 mL 03-10 07-07 mLs (5 mg [facility] solution 16:00: 00:00 total) by Med ical 41 :00 mouth Center every 4 (four) hours as needed for Pain. methadone 0 Yes Cancer 2mg Take [address] (DOLOPHINE) 7-07 associated (2 mg L ukes 5 mg/5 mL 00:00: pain total) by Med ical solution 00 mouth Center every 12 (twelve) hours. morphine 10 2022-0 Yes 5mg Take 2.[address] mg/5 mL 7-01 mLs (5 mg [facility] solution 07:57: total) by [facility] 54 mouth Center every 4 (four) hours as needed for Pain. morphine 10 2022-0 Yes 5mg Take 2.[address] mg/5 mL 7-01 mLs (5 mg [facility] solution 07:57: total) by [facility] 54 mouth Center every 4 (four) hours as needed for Pain. morphine 10 2022-0 Yes 5mg Take 2.[address] mg/5 mL 7-01 mLs (5 mg [facility] solution 07:57: total) by [facility] 54 mouth Center every 4 (four) hours as needed for Pain. ondansetron 2022-0 Yes 8mg Take [address] [facility] [address] (ZOFRAN-ODT 6-30 tablet (8 [facility] ) 8 MG 17:01: mg total) Medica l disintegrat 29 by mouth 2 Ce nter ing tablet (two) times daily as needed for Nausea. ondansetron 2022-0 Yes 8mg Take [address] [facility] (ZOFRAN-ODT 6-30 tablet (8 [facility] ) 8 MG 17:01: mg total) Medica l disintegrat 29 by mouth 2 Ce nter ing tablet (two) times daily as needed for Nausea. ondansetron 2022-0 Yes 8mg Take [address] (ZOFRAN-ODT 6-30 tablet (8 [facility] ) 8 MG 17:01: mg total) Medica l disintegrat 29 by mouth 2 Ce nter ing tablet (two) times daily as needed for Nausea. ondansetron Yes 8mg Take [address] [facility] (ZOFRAN-ODT 6-30 tablet (8 [facility] ) 8 MG 17:01: mg total) Medica l disintegrat 29 by mouth 2 Ce nter ing tablet (two) times daily as needed for Nausea. ondansetron Yes 8mg Take [address] [facility] (ZOFRAN-ODT 6-27 tablet (8 [facility] ) 8 MG 14:07: mg total) Medica l disintegrat 24 by mouth 2 Ce nter ing tablet (two) times daily as needed for Nausea. morphine 10 Yes 5mg Take 2.[address] mg/5 mL 6-27 mLs (5 mg [facility] solution 13:57: total) by [facility] 48 mouth Center every 4 (four) hours as needed for Pain. miscellaneo Yes Oral [facility] 6-24 suction [facility] supply Misc 00:00: machine. Wa dical 00 Center miscellaneo [address] [facility] 6-24 suction [facility] supply Misc 00:00: machine. Me dical 00 Center miscellaneo [address] [facility] 6-24 suction [facility] supply Misc 00:00: machine. Wa dical 00 Center miscellaneo [address] [facility] 6-24 suction [facility] supply Misc 00:00: machine. Wa dical 00 Center miscellaneo [address] [facility] medical 6-24 suction [facility] supply Misc 00:00: machine. Wa dical 00 Center methadone Yes Cancer 2mg Take [address] (DOLOPHINE) 6-23 associated (2 mg L ukes 5 mg/5 mL 00:00: pain total) by [facility] ical solution 00 mouth Center every 12 (twelve) hours. lactulose 0 Yes 20g [id number] Take [address] (CHRONULAC) 6-23 [id number] mLs (20 g [facility] 10 gram/15 00:00: 3D total) by Wa dical mL solution 00 mouth 3 Cente r (three) times daily. viscous 0 Yes 5mL [facility] lidocaine 6-23 spit 5 mLs [facility] 2% (VISCOUS 00:00: every 6 Med ical LIDOCAINE) 00 (six) Center 2 % Soln hours as mucosal needed. solution methadone 2022-0 Yes Cancer 2mg Take [address] (DOLOPHINE) 6-23 associated (2 mg L ukes 5 mg/5 mL 00:00: pain total) by Med ical solution 00 mouth Center every 12 (twelve) hours. lactulose 3-0 Yes 20g [id number] Take [address] (CHRONULAC) 6-23 [id number] mLs (20 g [facility] 10 gram/15 00:00: 3D total) by Wa dical mL solution 00 mouth 3 Cente r (three) times daily. viscous 3-0 Yes 5mL [facility] and [facility] lidocaine 6-23 spit 5 mLs [facility] 2% (VISCOUS 00:00: every 6 Med ical LIDOCAINE) 00 (six) Center 2 % Soln hours as mucosal needed. solution methadone 2022-0 Yes Cancer 2mg Take [address] (DOLOPHINE) 6-23 associated (2 mg L ukes 5 mg/5 mL 00:00: pain total) by Med ical solution 00 mouth Center every 12 (twelve) hours. lactulose 3-0 Yes 20g [id number] Take [address] (CHRONULAC) 6-23 [id number] mLs (20 g [facility] 10 gram/15 00:00: 3D total) by Wa dical mL solution 00 mouth 3 Cente r (three) times daily. viscous 3-0 Yes 5mL [facility] and [facility] lidocaine 6-23 spit 5 mLs [facility] 2% (VISCOUS 00:00: every 6 Med ical LIDOCAINE) 00 (six) Center 2 % Soln hours as mucosal needed. solution methadone 3-0 Yes Cancer 2mg Take [address] (DOLOPHINE) 6-23 associated (2 mg L ukes 5 mg/5 mL 00:00: pain total) by Med ical solution 00 mouth Center every 12 (twelve) hours. lactulose 2023-0 Yes 20g [id number] Take [address] (CHRONULAC) 6-23 [id number] mLs (20 g [facility] 10 gram/15 00:00: 3D total) by Me dical mL solution 00 mouth 3 Cente r (three) times daily. viscous 2023-0 Yes 5mL [facility] and [facility] lidocaine 6-23 spit 5 mLs [facility] 2% (VISCOUS 00:00: every 6 Med ical LIDOCAINE) 00 (six) Center 2 % Soln hours as mucosal needed. solution methadone 2022-0 Yes Cancer 2mg Take [address] (DOLOPHINE) 6-23 associated (2 mg L ukes 5 mg/5 mL 00:00: pain total) by Med ical solution 00 mouth Center every 12 (twelve) hours. lactulose 3-0 Yes 20g [id number] Take [address] (CHRONULAC) 6-23 [id number] mLs (20 g [facility] 10 gram/15 00:00: 3D total) by Wa dical mL solution 00 mouth 3 Cente r (three) times daily. viscous 3-0 Yes 5mL [facility] and [facility] lidocaine 6-23 spit 5 mLs [facility] 2% (VISCOUS 00:00: every 6 Med ical LIDOCAINE) 00 (six) Center 2 % Soln hours as mucosal needed. solution lactulose 2022-0 Yes 20g [id number] Take [address] (CHRONULAC) 6-23 [id number] mLs (20 g [facility] 10 gram/15 00:00: 3D total) by Wa dical mL solution 00 mouth 3 Cente r (three) times daily. viscous 3-0 Yes 5mL [facility] and [facility] lidocaine 6-23 spit 5 mLs [facility] 2% (VISCOUS 00:00: every 6 Med ical LIDOCAINE) 00 (six) Center 2 % Soln hours as mucosal needed. solution nicotine 2022-0 2022- Yes 1{patch Q24H Place [address] (NICODERM 02-24 } patch onto [facility] CQ) 14 00:00: 23:59 the skin Medica l mg/24 hr 00 :00 daily for Center patch 30 days. nicotine 2023-0 202- Yes 1{patch Q24H Place [address] (NICODERM 02-24 } patch onto [facility] CQ) 14 00:00: 23:59 the skin Medica l mg/24 hr 00 :00 daily for Center patch 30 days. nicotine 2022- Yes 1{patch Q24H Place [address] (NICODERM 02-24 } patch onto [facility] CQ) 14 00:00: 23:59 the skin Medica l mg/24 hr 00 :00 daily for Center patch 30 days. nicotine 2022- Yes 1{patch Q24H Place [address] (NICODERM 02-24 } patch onto [facility] CQ) 14 00:00: 23:59 the skin Medica l mg/24 hr 00 :00 daily for Center patch 30 days. nicotine 2022- Yes 1{patch Q24H Place [address] (NICODERM 02-24 } patch onto [facility] CQ) 14 00:00: 23:59 the skin Medica l mg/24 hr 00 :00 daily for Center patch 30 days. nicotine 2022- Yes 1{patch Q24H Place [address] (NICODERM 02-24 } patch onto [facility] CQ) 14 00:00: 23:59 the skin Medica l mg/24 hr 00 :00 daily for Center patch 30 days. methadone 2022- No Cancer 2mg Take [address] (DOLOPHINE) 02-24 07-07 associated (2 mg [facility] 5 mg/5 mL 00:00: 00:00 pain total) by Me dical solution 00 :00 mouth Center every 12 (twelve) hours. morphine 10 0 Yes 5mg Take 2.[address] mg/5 mL 6-22 mLs (5 mg [facility] solution 08:23: total) by Medi jasmina 13 mouth Center every 4 (four) hours as needed for Pain. Max Daily Amount: 30 mg ondansetron 0 Yes 8mg Take [address] (ZOFRAN-ODT 6-22 tablet (8 [facility] ) 8 MG 08:23: mg total) Medica l disintegrat 13 by mouth 2 Ce nter ing tablet (two) times daily as needed for Nausea. ondansetron 0 Yes 8mg Take [address] (ZOFRAN) 4 6-22 mLs (8 mg [facility] mg/5 mL 00:00: total) by Medic al solution 00 mouth Center every 8 (eight) hours as needed for Nausea. ondansetron 2022-0 Yes 8mg Take [address] (ZOFRAN) 4 6-22 mLs (8 mg [facility] mg/5 mL 00:00: total) by Medic al solution 00 mouth Center every 8 (eight) hours as needed for Nausea. ondansetron 2022-0 Yes 8mg Take [address] (ZOFRAN) 4 6-22 mLs (8 mg [facility] mg/5 mL 00:00: total) by Medic al solution 00 mouth Center every 8 (eight) hours as needed for Nausea. ondansetron 2022-0 Yes 8mg Take [address] (ZOFRAN) 4 6-22 mLs (8 mg [facility] mg/5 mL 00:00: total) by Medic al solution 00 mouth Center every 8 (eight) hours as needed for Nausea. ondansetron 2022-0 Yes 8mg Take [address] (ZOFRAN) 4 6-22 mLs (8 mg [facility] mg/5 mL 00:00: total) by Medic al solution 00 mouth Center every 8 (eight) hours as needed for Nausea. ondansetron 2022-0 Yes 8mg Take [address] (ZOFRAN) 4 6-22 mLs (8 mg [facility] mg/5 mL 00:00: total) by Medic al solution 00 mouth Center every 8 (eight) hours as needed for Nausea. gabapentin 2022- Yes 300mg Take [address] (NEURONTIN) -25 03-22 (300 mg [facility] 300 mg/6 mL 00:00: 23:59 total) by Medical (6 mL) Soln 00 :00 mouth 3 Cente r solution (three) times daily as needed (sharp pain) for up to 30 days. sennosides 2022- Yes 10mL QD Take [address] (SENOKOT) 6-22 07-22 mLs by [facility] 8.8 mg/5 mL 00:00: 23:59 mouth Medi jasmina syrup 00 :00 nightly Center for 30 days. gabapentin 0 2022- Yes 300mg Take [address] [address] (NEURONTIN) -25 03-22 (300 mg [facility] 300 mg/6 mL 00:00: 23:59 total) by Medical (6 mL) Soln 00 :00 mouth 3 Cente r solution (three) times daily as needed (sharp pain) for up to 30 days. sennosides 2022- Yes 10mL QD Take [address] (SENOKOT) 02-23- mLs by [facility] 8.8 mg/5 mL 00:00: 23:59 mouth Medi jasmina syrup 00 :00 nightly Center for 30 days. gabapentin 2022- Yes 300mg Take [address] (NEURONTIN) 02-23- (300 mg [facility] 300 mg/6 mL 00:00: 23:59 total) by Medical (6 mL) Soln 00 :00 mouth 3 Cente r solution (three) times daily as needed (sharp pain) for up to 30 days. sennosides 2022- Yes 10mL QD Take [address] (SENOKOT) 02-23- mLs by [facility] 8.8 mg/5 mL 00:00: 23:59 mouth Medi jasmina syrup 00 :00 nightly Center for 30 days. gabapentin 2022- Yes 300mg Take [address] (NEURONTIN) 02-23- (300 mg [facility] 300 mg/6 mL 00:00: 23:59 total) by Medical (6 mL) Soln 00 :00 mouth 3 Cente r solution (three) times daily as needed (sharp pain) for up to 30 days. sennosides 2022- Yes 10mL QD Take [address] (SENOKOT) 02-23- mLs by [facility] 8.8 mg/5 mL 00:00: 23:59 mouth Medi jasmina syrup 00 :00 nightly Center for 30 days. gabapentin 2022- Yes 300mg Take [address] (NEURONTIN) 02-23- (300 mg [facility] 300 mg/6 mL 00:00: 23:59 total) by Medical (6 mL) Soln 00 :00 mouth 3 Cente r solution (three) times daily as needed (sharp pain) for up to 30 days. sennosides 2022- Yes 10mL QD Take [address] (SENOKOT) -25 03-22 mLs by [facility] 8.8 mg/5 mL 00:00: 23:59 mouth Medi jasmina syrup 00 :00 nightly Center for 30 days. gabapentin 2022-0 2022- Yes 300mg Take [address] (NEURONTIN) 02-23-22 (300 mg [facility] 300 mg/6 mL 00:00: 23:59 total) by Medical (6 mL) Soln 00 :00 mouth 3 Cente r solution (three) times daily as needed (sharp pain) for up to 30 days. sennosides 2022-2022- Yes 10mL QD Take [address] (SENOKOT) 02-23-22 mLs by [facility]ukes 8.8 mg/5 mL 00:00: 23:59 mouth Medi jasmina syrup 00 :00 nightly Center for 30 days. sennosides 2022-2022- No 10mL QD Take [address] (SENOKOT) 02-23-22 mLs by [facility] 8.8 mg/5 mL 00:00: 00:00 mouth Medi jasmina syrup 00 :00 nightly Center for 30 days. gabapentin 2022-2022- No 300mg Take [address] (NEURONTIN) 02-23- (300 mg [facility] 300 mg/6 mL 00:00: 00:00 total) by Medical (6 mL) Soln 00 :00 mouth 3 Cente r solution (three) times daily as needed (sharp pain) for up to 30 days. ondansetron 2022-2022- No 8mg Take [address] (ZOFRAN) 4 02-23-22 mLs (8 mg [facility] mg/5 mL 00:00: 00:00 total) by Medi jasmina solution 00 :00 mouth Center every 8 (eight) hours as needed for Nausea. sennosides 2022-2022- No 10mL QD Take [address] (SENOKOT) - 06-22 mLs by [facility] 8.8 mg/5 mL 00:00: 00:00 mouth Medi jasmina syrup 00 :00 nightly Center for 30 days. gabapentin 2022-0 2022- No 300mg Take [address] [address] (NEURONTIN) 02-23-22 (300 mg [facility] 300 mg/6 mL 00:00: 00:00 total) by Medical (6 mL) Soln 00 :00 mouth 3 Cente r solution (three) times daily as needed (sharp pain) for up to 30 days. ondansetron 3-0 3- No 8mg Take [address] (ZOFRAN) 4 -23 02-22 mLs (8 mg [facility] mg/5 mL 00:00: 00:00 total) by Medi jasmina solution 00 :00 mouth Center every 8 (eight) hours as needed for Nausea. sennosides 3-0 3- No 10mL QD Take [address] (SENOKOT) -23 02-22 mLs by [facility] 8.8 mg/5 mL 00:00: 00:00 mouth Medi jasmina syrup 00 :00 nightly Center for 30 days. gabapentin 2022-0 2022- No 300mg Take [address] (NEURONTIN) 02-23-22 (300 mg [facility] 300 mg/6 mL 00:00: 00:00 total) by Medical (6 mL) Soln 00 :00 mouth 3 Cente r solution (three) times daily as needed (sharp pain) for up to 30 days. ondansetron 2022-0 2022- No 8mg Take [address] (ZOFRAN) 4 -23 02-22 mLs (8 mg [facility] mg/5 mL 00:00: 00:00 total) by Medi jasmina solution 00 :00 mouth Center every 8 (eight) hours as needed for Nausea. sennosides 2023-0 2023- No 10mL QD Take [address] (SENOKOT) 6-23 02-22 mLs by [facility] 8.8 mg/5 mL 00:00: 00:00 mouth Medi jasmina syrup 00 :00 nightly Center for 30 days. gabapentin 2023-0 2023- No 300mg Take [address] (NEURONTIN) -23 02-22 (300 mg [facility] 300 mg/6 mL 00:00: 00:00 total) by Medical (6 mL) Soln 00 :00 mouth 3 Cente r solution (three) times daily as needed (sharp pain) for up to 30 days. ondansetron 2023-0 2023- No 8mg Take [address] (ZOFRAN) 4 6-22 06-22 mLs (8 mg [facility] mg/5 mL 00:00: 00:00 total) by Medi jasmina solution 00 :00 mouth Center every 8 (eight) hours as needed for Nausea. sennosides 3-0 3- No 10mL QD Take [address] (SENOKOT) 6-22 06-22 mLs by [facility] 8.8 mg/5 mL 00:00: 00:00 mouth Medi jasmina syrup 00 :00 nightly Center for 30 days. gabapentin 2022-0 2022- No 300mg Take [address] (NEURONTIN) 6-23 02-22 (300 mg [facility] 300 mg/6 mL 00:00: 00:00 total) by Medical (6 mL) Soln 00 :00 mouth 3 Cente r solution (three) times daily as needed (sharp pain) for up to 30 days. ondansetron 2022-0 3- No 8mg Take [address] (ZOFRAN) 4 6-22 06-22 mLs (8 mg [facility] mg/5 mL 00:00: 00:00 total) by Medi jasmina solution 00 :00 mouth Center every 8 (eight) hours as needed for Nausea. sennosides 2022-0 3- No 10mL QD Take [address] (SENOKOT) 6-22 06-22 mLs by [facility] 8.8 mg/5 mL 00:00: 00:00 mouth Medi jasmina syrup 00 :00 nightly Center for 30 days. gabapentin 2022-0 3- No 300mg Take [address] (NEURONTIN) 6-23 02-22 (300 mg [facility] 300 mg/6 mL 00:00: 00:00 total) by Medical (6 mL) Soln 00 :00 mouth 3 Cente r solution (three) times daily as needed (sharp pain) for up to 30 days. ondansetron 3-0 3- No 8mg Take [address] (ZOFRAN) 4 6-22 06-22 mLs (8 mg [facility] mg/5 mL 00:00: 00:00 total) by Medi jasmina solution 00 :00 mouth Center every 8 (eight) hours as needed for Nausea. HYDROcodone 2022- No Take by [facility] -acetaminop 5-19 05-19 mouth [facility] ([facility] 09:54: 00:00 every 6 Med ical 7.5-325) 24 :00 (six) Center 7.5-325 mg hours as per tablet needed for Pain (kimberlyn pain) Liquid form. HYDROcodone 2022- No Take by [facility] -acetaminop 5-19 05-19 mouth [facility] ([place] 09:54: 00:00 every 6 Med ical 7.5-325) 24 :00 (six) Center 7.5-325 mg hours as per tablet needed for Pain (kimberlyn pain) Liquid form. HYDROcodone 2022- No Take by [facility] -acetaminop 5-19 05-19 mouth [facility] (ELBERTA :54: 00:00 every 6 Med ical 7.5-325) 24 :00 (six) Center 7.5-325 mg hours as per tablet needed for Pain (kimberlyn pain) Liquid form. HYDROcodone 2022- No Take by [facility] -acetaminop 5-19 05-19 mouth [facility] ([place]BERTA 09:54: 00:00 every 6 Med ical 7.5-325) 24 :00 (six) Center 7.5-325 mg hours as per tablet needed for Pain (kimberlyn pain) Liquid form. HYDROcodone 2022- No Take by [facility] -acetaminop 5-19 05-19 mouth [facility] ([place]A 09:54: 00:00 every 6 Med ical 7.5-325) 24 :00 (six) Center 7.5-325 mg hours as per tablet needed for Pain (kimberlyn pain) Liquid form. HYDROcodone 2022- No Take by [facility] -acetaminop 5-19 05-19 [facility] 00:00 every 6 Med ical 7.5-325) 24 :00 (six) Center 7.5-325 mg hours as per tablet needed for Pain (kimberlyn pain) Liquid form. HYDROcodone 2022- No Take by [facility] -acetaminop 5-19 05-19 mouth [facility] ([place] 09:54: 00:00 every 6 Med ical 7.5-325) 24 :00 (six) Center 7.5-325 mg hours as per tablet needed for Pain (kimberlyn pain) Liquid form. HYDROcodone 2022- No Take by [facility] -acetaminop 5-19 05-19 mouth [facility] ([place] 09:54: 00:00 every 6 Med ical 7.5-325) 24 :00 (six) Center 7.5-325 mg hours as per tablet needed for Pain (kimberlyn pain) Liquid form. HYDROcodone 2022- No Take by [facility] -acetaminop 5-19 05-19 mouth [facility] ([place] 09:54: 00:00 every 6 Med ical 7.5-325) 24 :00 (six) Center 7.5-325 mg hours as per tablet needed for Pain (kimberlyn pain) Liquid form. HYDROcodone 2022-2022- No Take by [facility] -acetaminop 5-19 05-19 mouth [facility]: 00:00 every 6 Med ical 7.5-325) 24 :00 (six) Center 7.5-325 mg hours as per tablet needed for Pain (kimberlyn pain) Liquid form. HYDROcodone 2022- No Take by [facility] -acetaminop 5-19 05-19 mouth [facility] ([place] 09:54: 00:00 every 6 Med ical 7.5-325) 24 :00 (six) Center 7.5-325 mg hours as per tablet needed for Pain (kimberlyn pain) Liquid form. cyanocobala 3-0 Yes 1[drp] QD Place [address] min, 5-19 drop under [facility] vitamin 00:00: the tongue Medi jasmina B-12, 00 in the Center (Vitamin morning. B-12) 5,000 mcg/mL Drop cyanocobala 2023-0 Yes 1[drp] QD Place [address] min, 5-19 drop under [facility] vitamin 00:00: the tongue Medi jasmina B-12, 00 in the Center (Vitamin morning. B-12) 5,000 mcg/mL Drop cyanocobala 2023-0 Yes 1[drp] QD Place [address] min, 5-19 drop under [facility] vitamin 00:00: the tongue Medi jasmina B-12, 00 in the Center (Vitamin morning. B-12) 5,000 mcg/mL Drop cyanocobala 2023-0 Yes 1[drp] QD Place [address] min, 5-19 drop under [facility] vitamin 00:00: the tongue Medi jasmina B-12, 00 in the Center (Vitamin morning. B-12) 5,000 mcg/mL Drop cyanocobala 2023-0 Yes 1[drp] QD Place [address] min, 5-19 drop under [facility] vitamin 00:00: the tongue Medi jasmina B-12, 00 in the Center (Vitamin morning. B-12) 5,000 mcg/mL Drop cyanocobala 2023-0 Yes 1[drp] QD Place [address] min, 5-19 drop under [facility] vitamin 00:00: the tongue Medi jasmina B-12, 00 in the Center (Vitamin morning. B-12) 5,000 mcg/mL Drop cyanocobala 2023-0 Yes 1[drp] QD Place [address] min, 5-19 drop under [facility] vitamin 00:00: the tongue Medi jasmina B-12, 00 in the Center (Vitamin morning. B-12) 5,000 mcg/mL Drop cyanocobala 2023-0 Yes 1[drp] QD Place [address] min, 5-19 drop under [facility] vitamin 00:00: the tongue Medi jasmina B-12, 00 in the Center (Vitamin morning. B-12) 5,000 mcg/mL Drop cyanocobala 2023-0 Yes 1[drp] QD Place [address] min, 5-19 drop under [facility] vitamin 00:00: the tongue Medi jasmina B-12, 00 in the Center (Vitamin morning. B-12) 5,000 mcg/mL Drop cyanocobala 2023-0 Yes 1[drp] QD Place [address] min, 5-19 drop under [facility] vitamin 00:00: the tongue Medi jasmina B-12, 00 in the Center (Vitamin morning. B-12) 5,000 mcg/mL Drop cyanocobala 2023-0 Yes 1[drp] QD Place [address] min, 5-19 drop under [facility] 00:00: the tongue Medi jasmina B-12, 00 in the Center (Vitamin morning. B-12) 5,000 mcg/mL Drop ferrous 2023- Yes 300mg QD Take [address] sulfate 300 5-19 05-18 (300 mg [facility] mg (60 mg 00:00: 23:59 total) by Me dical iron)/5 mL 00 :00 mouth in Cente r syrup the morning. ferrous 2023- Yes 300mg QD Take [address] sulfate 300 5-19 05-18 (300 mg [facility] s mg (60 mg 00:00: 23:59 total) by Me dical iron)/5 mL 00 :00 mouth [facility] syrup the morning. ferrous 2023- Yes 300mg QD Take [address] [facility] sulfate 300 5-19 05-18 (300 mg Luke s mg (60 mg 00:00: 23:59 total) by Me dical iron)/5 mL 00 :00 mouth [facility] syrup the morning. ferrous 2023- Yes 300mg QD Take [address] [facility] sulfate 300 5-19 05-18 (300 mg Luke s mg (60 mg 00:00: 23:59 total) by Me dical iron)/5 mL 00 :00 mouth in [facility] syrup the morning. ferrous 2023- Yes 300mg QD Take [address] [facility] sulfate 300 5-19 05-18 (300 mg Luke s mg (60 mg 00:00: 23:59 total) by Me dical iron)/5 mL 00 :00 mouth in [facility] syrup the morning. ferrous 2023- Yes 300mg QD Take [address] [facility] sulfate 300 5-19 05-18 (300 mg Luke s mg (60 mg 00:00: 23:59 total) by Me dical iron)/5 mL 00 :00 mouth in [facility] syrup the morning. ferrous 2023- Yes 300mg QD Take [address] [facility] sulfate 300 5-19 05-18 (300 mg Luke s mg (60 mg 00:00: 23:59 total) by Me dical iron)/5 mL 00 :00 mouth in [facility] syrup the morning. ferrous 2023- Yes 300mg QD Take [address] [facility] sulfate 300 5-19 05-18 (300 mg Luke s mg (60 mg 00:00: 23:59 total) by Me dical iron)/5 mL 00 :00 mouth in [facility] syrup the morning. ferrous 2023- Yes 300mg QD Take [address] [facility] sulfate 300 5-19 05-18 (300 mg Luke s mg (60 mg 00:00: 23:59 total) by Me dical iron)/5 mL 00 :00 mouth in [facility] syrup the morning. ferrous 2023- Yes 300mg QD Take [address] [facility] sulfate 300 5-19 05-18 (300 mg Luke s mg (60 mg 00:00: 23:59 total) by Me dical iron)/5 mL 00 :00 mouth in [facility] syrup the morning. ferrous 2023- Yes 300mg QD Take [address] [facility] sulfate 300 5-19 05-18 (300 mg Luke s mg (60 mg 00:00: 23:59 total) by Me dical iron)/5 mL 00 :00 mouth in [facility] syrup the morning. ondansetron 2022- Yes 8mg Take [address] [facility] (ZOFRAN-ODT 01-20-18 tablet (8 Crista kes ) 8 MG 00:00: 23:59 mg total) Medic al disintegrat 00 :00 by mouth 2 Ce nter ing tablet (two) times daily as needed for Nausea for up to 30 days. morphine 2022- Yes 10mg Take 0.[address] [facility] 100 mg/5 mL -20 02-18 mLs (10 mg L ukes (20 mg/mL) 00:00: 23:59 total) by Joao edevita rankin 00 :00 mouth Center d solution every 4 (four) hours as needed for Pain for up to 30 days C10.9 oropharyng eal cancer. Max Daily Amount: 60 mg ondansetron 2022- No 8mg Take [address] [facility] (ZOFRAN-ODT 5-18 tablet (8 Crista kes ) 8 MG 00:00: 23:59 mg total) Medic al disintegrat 00 :00 by mouth 2 Ce nter ing tablet (two) times daily as needed for Nausea for up to 30 days. morphine 2023-0 2023- No 10mg Take 0.[address] [facility] 100 mg/5 mL 5-19 06-18 mLs (10 mg L ukes (20 mg/mL) 00:00: 23:59 total) by M edical concentrate 00 :00 mouth Center d solution every 4 (four) hours as needed for Pain for up to 30 days C10.9 oropharyng eal cancer. Max Daily Amount: 60 mg ondansetron 2023-0 2023- No 8mg Take [address] [facility] (ZOFRAN-ODT 5-19 06-18 tablet (8 Crista kes ) 8 MG 00:00: 23:59 mg total) Medic al disintegrat 00 :00 by mouth 2 Ce nter ing tablet (two) times daily as needed for Nausea for up to 30 days. morphine 2023-0 2023- No 10mg Take 0.[address] [facility] 100 mg/5 mL 5-19 06-18 mLs (10 mg L ukes (20 mg/mL) 00:00: 23:59 total) by M edical concentrate 00 :00 mouth Center d solution every 4 (four) hours as needed for Pain for up to 30 days C10.9 oropharyng eal cancer. Max Daily Amount: 60 mg ondansetron 2023-0 2023- No 8mg Take [address] [facility] (ZOFRAN-ODT 5-19 06-18 tablet (8 Crista kes ) 8 MG 00:00: 23:59 mg total) Medic al disintegrat 00 :00 by mouth 2 Ce nter ing tablet (two) times daily as needed for Nausea for up to 30 days. morphine 2023-0 2023- No 10mg Take 0.[address] [facility] 100 mg/5 mL 5-19 06-18 mLs (10 mg L ukes (20 mg/mL) 00:00: 23:59 total) by M edical concentrate 00 :00 mouth Center d solution every 4 (four) hours as needed for Pain for up to 30 days C10.9 oropharyng eal cancer. Max Daily Amount: 60 mg ondansetron 2023-0 2023- No 8mg Take [address] [facility] (ZOFRAN-ODT 5-19 06-18 tablet (8 Crista kes ) 8 MG 00:00: 23:59 mg total) Medic al disintegrat 00 :00 by mouth 2 Ce nter ing tablet (two) times daily as needed for Nausea for up to 30 days. morphine 2023-0 2023- No 10mg Take 0.[address] [facility] 100 mg/5 mL 5-19 06-18 mLs (10 mg L ukes (20 mg/mL) 00:00: 23:59 total) by M edical concentrate 00 :00 mouth Center d solution every 4 (four) hours as needed for Pain for up to 30 days C10.9 oropharyng eal cancer. Max Daily Amount: 60 mg ondansetron 2023-0 2023- No 8mg Take [address] [facility] (ZOFRAN-ODT 5-19 06-18 tablet (8 Crista kes ) 8 MG 00:00: 23:59 mg total) Medic al disintegrat 00 :00 by mouth 2 Ce nter ing tablet (two) times daily as needed for Nausea for up to 30 days. morphine 2023-0 2023- No 10mg Take 0.[address] [facility] 100 mg/5 mL 5-19 06-18 mLs (10 mg L ukes (20 mg/mL) 00:00: 23:59 total) by M edical concentrate 00 :00 mouth Center d solution every 4 (four) hours as needed for Pain for up to 30 days C10.9 oropharyng eal cancer. Max Daily Amount: 60 mg ondansetron 2023-0 2023- No 8mg Take [address] [facility] (ZOFRAN-ODT 5-19 06-18 tablet (8 Crista kes ) 8 MG 00:00: 23:59 mg total) Medic al disintegrat 00 :00 by mouth 2 Ce nter ing tablet (two) times daily as needed for Nausea for up to 30 days. morphine 2023-0 2023- No 10mg Take 0.[address] [facility] 100 mg/5 mL 5-19 06-18 mLs (10 mg L ukes (20 mg/mL) 00:00: 23:59 total) by M edical concentrate 00 :00 mouth Center d solution every 4 (four) hours as needed for Pain for up to 30 days C10.9 oropharyng eal cancer. Max Daily Amount: 60 mg ondansetron 2023-0 2023- No 8mg Take [address] [facility] (ZOFRAN-ODT 5-19 06-18 tablet (8 Crista kes ) 8 MG 00:00: 23:59 mg total) Medic al disintegrat 00 :00 by mouth 2 Ce nter ing tablet (two) times daily as needed for Nausea for up to 30 days. morphine 2023-0 2023- No 10mg Take 0.[address] [facility] 100 mg/5 mL 5-19 06-18 mLs (10 mg L ukes (20 mg/mL) 00:00: 23:59 total) by M edical concentrate 00 :00 mouth Center d solution every 4 (four) hours as needed for Pain for up to 30 days C10.9 oropharyng eal cancer. Max Daily Amount: 60 mg ondansetron 2023-0 2023- No 8mg Take [address] [facility] (ZOFRAN-ODT 5-19 06-18 tablet (8 Crista kes ) 8 MG 00:00: 23:59 mg total) Medic al disintegrat 00 :00 by mouth 2 Ce nter ing tablet (two) times daily as needed for Nausea for up to 30 days. morphine 2023-0 2023- No 10mg Take 0.[address] [facility] 100 mg/5 mL 5-19 06-18 mLs (10 mg L ukes (20 mg/mL) 00:00: 23:59 total) by M edical concentrate 00 :00 mouth Center d solution every 4 (four) hours as needed for Pain for up to 30 days C10.9 oropharyng eal cancer. Max Daily Amount: 60 mg ondansetron 2023-0 2023- No 8mg Take [address] [facility] (ZOFRAN-ODT 5-19 06-18 tablet (8 Crista kes ) 8 MG 00:00: 23:59 mg total) Medic al disintegrat 00 :00 by mouth 2 Ce nter ing tablet (two) times daily as needed for Nausea for up to 30 days. morphine 2023-0 2023- No 10mg Take 0.[address] [facility] 100 mg/5 mL 5-19 06-18 mLs (10 mg L ukes (20 mg/mL) 00:00: 23:59 total) by M edical concentrate 00 :00 mouth Center d solution every 4 (four) hours as needed for Pain for up to 30 days C10.9 oropharyng eal cancer. Max Daily Amount: 60 mg ondansetron 2023-0 2023- No 8mg Take [address] [facility] (ZOFRAN-ODT -20 02-18 tablet (8 Crista kes ) 8 MG 00:00: 23:59 mg total) Medic al disintegrat 00 :00 by mouth 2 Ce nter ing tablet (two) times daily as needed for Nausea for up to 30 days. morphine 2023-0 2023- No 10mg Take 0.[address] [facility] 100 mg/5 mL 5-19 -18 mLs (10 mg L ukes (20 mg/mL) 00:00: 23:59 total) by M edical concentrate 00 :00 mouth Center d solution every 4 (four) hours as needed for Pain for up to 30 days C10.9 oropharyng eal cancer. Max Daily Amount: 60 mg morphine 2023-0 2023- No 10mg Take 0.[address] [facility] 100 mg/5 mL 5-19 05-19 mLs (10 mg L ukes (20 mg/mL) 00:00: 00:00 total) by M edical concentrate 00 :00 mouth Center d solution every 4 (four) hours as needed for Pain for up to 30 days. Max Daily Amount: 60 mg morphine 2023-0 2023- No 10mg Take 0.[address] [facility] 100 mg/5 mL 5-19 05-19 mLs (10 mg L ukes (20 mg/mL) 00:00: 00:00 total) by M edical concentrate 00 :00 mouth Center d solution every 4 (four) hours as needed for Pain for up to 30 days. Max Daily Amount: 60 mg morphine 2023-0 2023- No 10mg Take 0.[address] [facility] 100 mg/5 mL 5-19 05-19 mLs (10 mg L ukes (20 mg/mL) 00:00: 00:00 total) by M edical concentrate 00 :00 mouth Center d solution every 4 (four) hours as needed for Pain for up to 30 days. Max Daily Amount: 60 mg morphine 2023-0 2023- No 10mg Take 0.[address] [facility] 100 mg/5 mL 5-19 05-19 mLs (10 mg L ukes (20 mg/mL) 00:00: 00:00 total) by M edical concentrate 00 :00 mouth Center d solution every 4 (four) hours as needed for Pain for up to 30 days. Max Daily Amount: 60 mg morphine 2023-0 2023- No 10mg Take 0.[address] [facility] 100 mg/5 mL 5-19 05-19 mLs (10 mg L ukes (20 mg/mL) 00:00: 00:00 total) by M edical concentrate 00 :00 mouth Center d solution every 4 (four) hours as needed for Pain for up to 30 days. Max Daily Amount: 60 mg morphine 2023-0 2023- No 10mg Take 0.[address] [facility] 100 mg/5 mL 5-19 05-19 mLs (10 mg L ukes (20 mg/mL) 00:00: 00:00 total) by M edical concentrate 00 :00 mouth Center d solution every 4 (four) hours as needed for Pain for up to 30 days. Max Daily Amount: 60 mg morphine 2023-0 2023- No 10mg Take 0.[address] [facility] 100 mg/5 mL 5-19 05-19 mLs (10 mg L ukes (20 mg/mL) 00:00: 00:00 total) by Joao edical concentrate 00 :00 mouth Center d solution every 4 (four) hours as needed for Pain for up to 30 days. Max Daily Amount: 60 mg morphine 2023-0 2023- No 10mg Take 0.[address] [facility] 100 mg/5 mL 5-19 05-19 mLs (10 mg L ukes (20 mg/mL) 00:00: 00:00 total) by Joao edical concentrate 00 :00 mouth Center d solution every 4 (four) hours as needed for Pain for up to 30 days. Max Daily Amount: 60 mg morphine 2023-0 2023- No 10mg Take 0.[address] [facility] 100 mg/5 mL 5-19 05-19 mLs (10 mg L ukes (20 mg/mL) 00:00: 00:00 total) by M edical concentrate 00 :00 mouth Center d solution every 4 (four) hours as needed for Pain for up to 30 days. Max Daily Amount: 60 mg morphine 2023-0 2023- No 10mg Take 0.[address] [facility] 100 mg/5 mL 5-19 05-19 mLs (10 mg L ukes (20 mg/mL) 00:00: 00:00 total) by M edical concentrate 00 :00 mouth Center d solution every 4 (four) hours as needed for Pain for up to 30 days. Max Daily Amount: 60 mg morphine 2023-0 2023- No 10mg Take 0.[address] [facility] 100 mg/5 mL 5-19 05-19 mLs (10 mg L ukes (20 mg/mL) 00:00: 00:00 total) by M edical concentrate 00 :00 mouth Center d solution every 4 (four) hours as needed for Pain for up to 30 days. Max Daily Amount: 60 mg morphine 2023-0 2023- No 10mg Take 0.[address] [facility] 100 mg/5 mL 5-19 05-19 mLs (10 mg L ukes (20 mg/mL) 00:00: 00:00 total) by M edical concentrate 00 :00 mouth Center d solution every 4 (four) hours as needed for Pain for up to 30 days. Max Daily Amount: 60 mg morphine 2023-0 2023- No 10mg Take 0.[address] [facility] mg/5 mL 5-19 05-19 mLs (10 mg L ukes (20 mg/mL) 00:00: 00:00 total) by M edical concentrate 00 :00 mouth Center d solution every 4 (four) hours as needed for Pain for up to 30 days. Max Daily Amount: 60 mg morphine 2023-0 2023- No 10mg Take 0.[address] [facility] mg/5 mL 5-19 05-19 mLs (10 mg L ukes (20 mg/mL) 00:00: 00:00 total) by Joao edical concentrate 00 :00 mouth Center d solution every 4 (four) hours as needed for Pain for up to 30 days. Max Daily Amount: 60 mg morphine 2023-0 2023- No 10mg Take 0.[address] [facility] mg/5 mL 5-19 05-19 mLs (10 mg L ukes (20 mg/mL) 00:00: 00:00 total) by M edical concentrate 00 :00 mouth Center d solution every 4 (four) hours as needed for Pain for up to 30 days. Max Daily Amount: 60 mg morphine 2023-0 2023- No 10mg Take 0.[address] [facility] mg/5 mL 5-19 05-19 mLs (10 mg L ukes (20 mg/mL) 00:00: 00:00 total) by M edical concentrate 00 :00 mouth Center d solution every 4 (four) hours as needed for Pain for up to 30 days. Max Daily Amount: 60 mg morphine 2023-0 2023- No 10mg Take 0.[address] [facility] mg/5 mL 5-19 05-19 mLs (10 mg L ukes (20 mg/mL) 00:00: 00:00 total) by M edical concentrate 00 :00 mouth Center d solution every 4 (four) hours as needed for Pain for up to 30 days. Max Daily Amount: 60 mg morphine 2023-0 2023- No 10mg Take 0.[address] [facility] mg/5 mL 5-19 05-19 mLs (10 mg L ukes (20 mg/mL) 00:00: 00:00 total) by M edical concentrate 00 :00 mouth Center d solution every 4 (four) hours as needed for Pain for up to 30 days. Max Daily Amount: 60 mg morphine 2023-0 2023- No 10mg Take 0.[address] [facility] 100 mg/5 mL 5-19 05-19 mLs (10 mg L ukes (20 mg/mL) 00:00: 00:00 total) by M edical concentrate 00 :00 mouth Center d solution every 4 (four) hours as needed for Pain for up to 30 days. Max Daily Amount: 60 mg morphine 2023-0 2023- No 10mg Take 0.[address] [facility] 100 mg/5 mL 5-19 05-19 mLs (10 mg L ukes (20 mg/mL) 00:00: 00:00 total) by M edical concentrate 00 :00 mouth Center d solution every 4 (four) hours as needed for Pain for up to 30 days. Max Daily Amount: 60 mg morphine 2023-0 2023- No 10mg Take 0.[address] [facility] 100 mg/5 mL 5-19 05-19 mLs (10 mg L ukes (20 mg/mL) 00:00: 00:00 total) by M edical concentrate 00 :00 mouth Center d solution every 4 (four) hours as needed for Pain for up to 30 days. Max Daily Amount: 60 mg morphine 2023-0 2023- No 10mg Take 0.[address] [facility] 100 mg/5 mL 5-19 05-19 mLs (10 mg L ukes (20 mg/mL) 00:00: 00:00 total) by Joao sullivan concentrate 00 :00 mouth Center d solution every 4 (four) hours as needed for Pain for up to 30 days. Max Daily Amount: 60 mg HYDROcodone Yes Take by [facility] -acetaminop 5-17 mouth [facility] ([facility] 04:39: every 6 Medi jasmina 7.5-325) 44 (six) Center 7.5-325 mg hours as per tablet needed for Pain (kimberlyn pain) Liquid form. Vital Signs Vital Name Observation Time Observation Value Comments Source WEIGHT 2023-03-17 00:06:00 58.151 kg WEIGHT 2023-03-16 06:00:00 44.3 kg WEIGHT 2023-03-15 05:00:00 56.3 kg HEIGHT 2023-03-03 12:40:00 152.4 cm WEIGHT 2023-03-03 12:40:00 54.885 kg HEIGHT 2023-02-28 14:00:00 154.9 cm WEIGHT 2023-02-28 14:00:00 56.246 kg WEIGHT 2023-03-17 00:06:00 58.151 kg WEIGHT 2023-03-16 06:00:00 44.3 kg WEIGHT 2023-03-15 05:00:00 56.3 kg HEIGHT 2023-03-03 12:40:00 152.4 cm WEIGHT 2023-03-03 12:40:00 54.885 kg HEIGHT 2023-02-28 14:00:00 154.9 cm WEIGHT 2023-02-28 14:00:00 56.246 kg HEIGHT 2023-02-24 08:13:00 154.9 cm WEIGHT 2023-02-24 08:13:00 56.337 kg HEIGHT 2023-02-24 08:13:00 154.9 cm WEIGHT 2023-02-24 08:13:00 56.337 kg HEIGHT 2023-02-23 08:02:00 154.9 cm WEIGHT 2023-02-23 08:02:00 55.52 kg HEIGHT 2023-02-23 08:02:00 154.9 cm WEIGHT 2023-02-23 08:02:00 55.52 kg HEIGHT 2023-01-18 04:00:00 154.9 cm WEIGHT 2023-01-18 04:00:00 57.561 kg HEIGHT 2023-01-18 04:00:00 154.9 cm WEIGHT 2023-01-18 04:00:00 57.561 kg Heart rate 2023-03-13 11:21:03 77 /min [facility] Body temperature 2023-03-13 11:21:03 36.78 Margi [facility] Respiratory rate 2023-03-13 11:21:03 17 /min [facility] Oxygen saturation in 2023-03-13 11:21:03 98 /min [facility] Arterial blood by Medical Ce nter Pulse oximetry Systolic blood 2023-03-13 11:20:30 97 mm[Hg] [facility] Diastolic blood 2023-03-13 11:20:30 68 mm[Hg] [facility] Heart rate 2023-03-10 07:45:31 75 /min [facility] Respiratory rate 2023-03-10 07:45:31 16 /min [facility] Oxygen saturation in 2023-03-10 07:45:31 100 /min [facility] Arterial blood by Medical Ce nter Pulse oximetry Body temperature 2023-03-10 07:44:56 36.94 Margi [facility] Systolic blood 2023-03-10 07:44:15 119 mm[Hg] [facility] Diastolic blood 2023-03-10 07:44:15 86 mm[Hg] [facility] Heart rate 2023-03-09 11:34:32 74 /min [facility] Respiratory rate 2023-03-09 11:34:32 18 /min [facility] Oxygen saturation in 2023-03-09 11:34:32 99 /min [facility] Arterial blood by Medical Ce nter Pulse oximetry Body temperature 2023-03-09 11:34:02 36.61 Margi [facility] Systolic blood 2023-03-09 11:33:45 124 mm[Hg] [facility] Diastolic blood 2023-03-09 11:33:45 90 mm[Hg] [facility] Systolic blood 2023-03-08 10:30:00 136 mm[Hg] [facility] Diastolic blood 2023-03-08 10:30:00 100 mm[Hg] [facility] Heart rate 2023-03-08 10:30:00 64 /min [facility] Respiratory rate 2023-03-08 10:30:00 11 /min [facility] Oxygen saturation in 2023-03-08 10:30:00 99 /min [facility] Arterial blood by Medical Ce nter Pulse oximetry Body temperature 2023-03-08 09:54:00 36 Margi [facility] Body height 2023-03-03 12:40:00 152.4 cm [facility] Body weight 2023-03-03 12:40:00 54.885 kg [facility] BMI 2023-03-03 12:40:00 23.63 kg/m2 [facility] Body height 2023-02-28 14:00:00 154.9 cm [facility] Body weight 2023-02-28 14:00:00 56.246 kg [facility] BMI 2023-02-28 14:00:00 23.43 kg/m2 [facility] Systolic blood 2023-02-24 08:13:00 120 mm[Hg] [facility] Diastolic blood 2023-02-24 08:13:00 97 mm[Hg] [facility] Heart rate 2023-02-24 08:13:00 88 /min [facility] Body height 2023-02-24 08:13:00 154.9 cm [facility] Body weight 2023-02-24 08:13:00 56.337 kg [facility] BMI 2023-02-24 08:13:00 23.47 kg/m2 [facility] Oxygen saturation in 2023-02-24 08:13:00 100 /min [facility] Arterial blood by Medical Ce nter Pulse oximetry Body temperature 2023-02-23 08:02:00 37 Margi [facility] Systolic blood 2023-01-20 07:55:00 136 mm[Hg] [facility] Diastolic blood 2023-01-20 07:55:00 82 mm[Hg] [facility] Heart rate 2023-01-20 07:55:00 71 /min [facility] Body temperature 2023-01-20 07:55:00 36.44 Margi [facility] Respiratory rate 2023-01-20 07:55:00 18 /min [facility] Oxygen saturation in 2023-01-20 07:55:00 100 /min [facility] Arterial blood by Medical Ce nter Pulse oximetry Systolic blood 2023-01-19 12:52:00 128 mm[Hg] [facility] Diastolic blood 2023-01-19 12:52:00 85 mm[Hg] [facility] Heart rate 2023-01-19 12:52:00 66 /min [facility] Body temperature 2023-01-19 12:52:00 36.72 Margi [facility] Respiratory rate 2023-01-19 12:52:00 18 /min [facility] Oxygen saturation in 2023-01-19 12:52:00 100 /min [facility] Arterial blood by Medical Ce nter Pulse oximetry Body height 2023-01-18 04:00:00 154.9 cm [facility] Body weight 2023-01-18 04:00:00 57.561 kg [facility] BMI 2023-01-18 04:00:00 23.98 kg/m2 [facility] Procedures Procedure Date / Time Performing Clinician Source Performed GLOSSECTOMY, TOTAL 2023-03-14 07:30:00 Susanna Wick [facility] DISSECTION, NECK, RADICAL 2023-03-14 07:30:00 Susanna Wick Eddie [facility] SKIN FLAP PROCEDURE, 2023-03-14 07:30:00 Vinh Alcocer [facility] FREE FLAP PROCEDURE, 2023-03-14 07:30:00 Vinh Alcocer [facility] LOWER EXTREMITY, WITH Medical Ce nter MICROVASCULAR ANASTOMOSIS FLAP PROCEDURE, MUSCLE, 2023-03-14 07:30:00 Vinh Alcocer [facility] CREATION, FLAP, ROTATION 2023-03-14 07:30:00 Vinh Alcocer [facility] POCT-GLUCOSE METER 2023-03-13 11:44:00 Susanna Wick [facility] POCT-GLUCOSE METER 2023-03-13 06:05:[facility] 2023-03-13 03:53:00 Cayden [facility] MAGNESIUM 2023-03-13 03:53[facility]-13 03:53[facility] 2023-03-13 00:08:00 Susanna Wick [facility] POCT-GLUCOSE METER 2023-03-12 15:54:00 Susanna Wick [facility] POCT-GLUCOSE METER 2023-03-12 12:22:00 Susanna Wick [facility] POCT-GLUCOSE METER 2023-03-12 06:14:00 Susanna Wick [facility] BASIC METABOLIC PANEL 2023-03-12 03:31:00 [place] [facility] MAGNESIUM 2023-03-12 03:31:[facility]23-03-12 03:31:[facility]SE [facility] 2023-03-11 23:54:00 Susanna Wick [facility] POCT-GLUCOSE METER 2023-03-11 16:29:00 [facility] POCT-GLUCOSE METER 2023-03-11 12:28:00 [facility] POCT-GLUCOSE METER 2023-03-11 06:03:00 Susanna Wick [facility] BASIC METABOLIC PANEL 2023-03-11 04:02:00 [facility]-03-11 04:02:00 [facility] PHOSPHORUS 2023-03-11 04:02:00 [facility] BASIC METABOLIC PANEL 2023-03-10 06:07:00 Cayden [facility] MAGNESIUM 2023-03-10 06:07:00 [facility] [facility] PHOSPHORUS 2023-03-10 06:07:00 [facility] POCT-GLUCOSE METER 2023-03-10 05:58:00 Susanna Wick [facility] POCT-GLUCOSE METER 2023-03-09 23:19:00 [facility] POCT-GLUCOSE METER 2023-03-09 17:49:00 Susanna Wick [facility] POCT-GLUCOSE METER 2023-03-09 11:35:00 Susanna Wick [facility] POCT-GLUCOSE METER 2023-03-09 06:08:00 Susanna Wick [facility] CBC W/PLT COUNT & AUTO 2023-03-09 04:54:00 [facility] [facility] BASIC METABOLIC PANEL 2023-03-09 04:54:00 Cayden [facility] MAGNESIUM 2023-03-09 04:54:00 [facility] [facility] PHOSPHORUS 2023-03-09 04:54:00 Cay[facility] ABORH, MANUAL 2023-03-09 04:54:00 [facility] CBC W/PLT COUNT & AUTO 2023-03-09 04:54:00 [facility] POCT-GLUCOSE METER 2023-03-08 23:36:00 [facility] 2023-03-08 17:43:00 [facility] POCT-GLUCOSE METER 2023-03-08 11:29:00 Susanna Wick [facility] INSERTION, GASTROSTOMY 2023-03-08 07:55:00 Jose Snyder [facility] TUBE, LAPAROSCOPIC [facility] Cent[facility] POCT , URINE 2023-03-08 07:31:00 Sofie Blackwood [facility] TYPE AND SCREEN, 2023-03-08 07:28:00 Jose Snyder [facility] POCT-GLUCOSE METER 2023-03-08 05:51:00 [facility] CBC W/PLT COUNT & AUTO 2023-03-08 03:29:00 [facility] BAS[facility] METABOLIC PANEL 2023-03-08 03:29:00 [place] [facility] MAGNESIUM 2023-03-08 03:29[facility]00 [facility]-08 03:29[facility] W/PLT [facility] & AUTO 2023-03-08 03:29:00 Lito Hernandez [facility], I [facility] DIFFERENTIAL [facility] POCT-GLUCOSE METER 2023-03-07 23:30:00 [facility] POCT-GLUCOSE METER 2023-03-07 17:42:00 [facility] POCT-GLUCOSE METER 2023-03-07 12:05:00 [facility] POCT-GLUCOSE METER 2023-03-07 06:28:00 [facility] CBC W/PLT COUNT & AUTO 2023-03-07 04:54:00 [facility] BASIC METABOLIC PANEL 2023-03-07 04:54[facility]-07 04:54:00 CaydenZ[facility] PHOSPHORUS 2023-03-07 04:54:00 [facility] [facility] CBC W/PLT COUNT & AUTO 2023-03-07 04:54:00 Lito Hernandez CH, I [facility] DIFFERENTIAL [facility] POCT-GLUCOSE METER 2023-03-06 23:58:00 Susanna Wick [facility] POCT-GLUCOSE METER 2023-03-06 17:09:00 Susanna Wick [facility] SCREEN, URINE 2023-03-06 14:44:00 Jose Snyder [facility] POCT-GLUCOSE METER 2023-03-05 16:54:00 [facility] POCT-GLUCOSE METER 2023-03-05 12:26:00 [facility] CBC W/PLT COUNT & AUTO 2023-03-05 05:07:00 Chadd Clemente [facility] COMPREHENSIVE METABOLIC 2023-03-05 05:07:00 Cahdd Clemente [facility] PANEL [facility] PREALBUMIN 2023-03-05 05:07:00 Chadd Clemente [facility] APTT 2023-03-05 05:07:00 Chadd Clemente [facility] PROTHROMBIN TIME/INR 2023-03-05 05:07:00 Chadd Clemente [facility] CBC W/PLT COUNT & AUTO 2023-03-05 05:07:00 Chadd Clemente [facility] HC LAB HIV-1 AG W/HIV-1&2 2023-03-04 12:31:00 Fall, Nakul Justice [facility] HEPATITIS C ANTIBODY 2023-03-04 12:31:00 Fall, Nakul Justice [facility] PREALBUMIN 2023-03-04 12:31:00 Nakul Edmond [facility] XR ABDOMEN/KUB 1 VIEW 2023-03-03 18:48:00 Rick Ball [facility] LARYNGOSCOPY, WITH BIOPSY 2023-03-03 16:15:00 Susanna Wick [facility] LARYNGOSCOPY, WITH BIOPSY 2023-03-03 14:48:00 Susanna Wick [facility] POCT , URINE 2023-03-03 13:08:00 Maryann Mclean [facility] CT CHEST WITH IV CONTRAST 2023-02-23 12:27:[address] [facility] CT NECK SOFT TISSUE WITH 2023-02-23 12:27:31 Prabha Winn [facility] IV CONTRAST [facility] XT NORMAL BLOOD (TEMPUS) 2023-02-23 10:54:00 Carlos Grajeda [facility] BASIC METABOLIC PANEL 2023-01-20 04:17:00 Mariaa Wilder [facility] MAGNESIUM 2023-01-20 04:17:00 [facility] 2023-01-20 04:17:00 [facility] MET[facility]OLIC PANEL 2023-01-19 05:08:00 Mariaa Wilder [facility] MAGNESIUM 2023-01-19 05:08:00 Mariaa Wilder [facility] PHOSPHORUS 2023-01-19 05:08:00 [facility] VITAMIN B12 2023-01-19 05:08:00 Meño [facility] IRON, TIBC, % SAT. 2023-01-19 05:08:00 Mariaa Wilder [facility] (WITHOUT FERRITIN) Medical Cente r CT CHEST WITH IV CONTRAST 2023-01-18 14:51:00 Cesia Lau [facility] CBC W/PLT COUNT & AUTO 2023-01-18 05:18:[address]so Hurd [place] [facility] COMPREHENSIVE METABOLIC 2023-01-18 05:18:[address] [facility] MAGNESIUM 2023-01-18 05:18:[address] [facility] PHOSPHORUS 2023-01-18 05:18:00 [facility] CBC W/PLT COUNT & AUTO 2023-01-18 05:18:00 Shanae Laualfonso Hurd [facility] Plan of Care Planned Activity Planned Date Details Comments Source Future Scheduled 2026-04-05 DTAP/TDAP/TD VACCINES [facility]00 (2 - Td or Tdap) [code Medic al Center = DTAP/TDAP/TD VACCINES (2 - Td or Tdap)] Future Scheduled 2026-04-05 DTAP/TDAP/TD VACCINES [facility] 00:00:00 (2 - Td or Tdap) [code Medic al Center = DTAP/TDAP/TD VACCINES (2 - Td or Tdap)] Future Scheduled 2026-04-05 DTAP/TDAP/TD VACCINES [facility] 00:00:00 (2 - Td or Tdap) [code Medic al Center = DTAP/TDAP/TD VACCINES (2 - Td or Tdap)] Future Scheduled 2026-04-05 DTAP/TDAP/TD VACCINES [facility] 00:00:00 (2 - Td or Tdap) [code Medic al Center = DTAP/TDAP/TD VACCINES (2 - Td or Tdap)] Future Scheduled 2026-04-05 DTAP/TDAP/TD VACCINES [facility] 00:00:00 (2 - Td or Tdap) [code Medic al Center = DTAP/TDAP/TD VACCINES (2 - Td or Tdap)] Future Scheduled 2026-04-05 DTAP/TDAP/TD VACCINES [facility] 00:00:00 (2 - Td or Tdap) [code Medic al Center = DTAP/TDAP/TD VACCINES (2 - Td or Tdap)] Future Scheduled 2026-04-05 DTAP/TDAP/TD VACCINES [facility] 00:00:00 (2 - Td or Tdap) [code Medic al Center = DTAP/TDAP/TD VACCINES (2 - Td or Tdap)] Future Scheduled 2026-04-05 DTAP/TDAP/TD VACCINES [facility] 00:00:00 (2 - Td or Tdap) [code Medic al Center = DTAP/TDAP/TD VACCINES (2 - Td or Tdap)] Future Scheduled 2026-04-05 DTAP/TDAP/TD VACCINES [facility] 00:00:00 (2 - Td or Tdap) [code Medic al Center = DTAP/TDAP/TD VACCINES (2 - Td or Tdap)] Future Scheduled 2026-04-05 DTAP/TDAP/TD VACCINES [facility] 00:00:00 (2 - Td or Tdap) [code Medic al Center = DTAP/TDAP/TD VACCINES (2 - Td or Tdap)] Future Scheduled 2026-04-05 DTAP/TDAP/TD VACCINES [facility] 00:00:00 (2 - Td or Tdap) [code Medic al Center = DTAP/TDAP/TD VACCINES (2 - Td or Tdap)] Future Scheduled 2026-04-05 DTAP/TDAP/TD VACCINES [facility] 00:00:00 (2 - Td or Tdap) [code Medic al Center = DTAP/TDAP/TD VACCINES (2 - Td or Tdap)] Future Scheduled 2024-03-[address] [facility] 00:[facility]:00 Counseling [facility] Medical Cente r Screening (12+) [code = Tobacco Cessation Counseling and Screening (12+)] Future Scheduled 2024-03-[address] [facility] 00:00:00 Counseling and Medical Cente r Screening (12+) [code = Tobacco Cessation Counseling and Screening (12+)] Future Scheduled 2024-03-[address] [facility] 00:00:00 Counseling and Medical Cente r Screening (12+) [code = Tobacco Cessation Counseling and Screening (12+)] Future Scheduled 2024-03-[address] [facility] 00:00:00 Counseling and Medical Cente r Screening (12+) [code = Tobacco Cessation Counseling and Screening (12+)] Future Scheduled 2024-02-[address] [facility] 00:00:00 Counseling and Medical Cente r Screening (12+) [code = Tobacco Cessation Counseling and Screening (12+)] Future Scheduled 2023-05-[address] [facility] 00:00:00 (Season Ended) [code = Medic al Center Influenza Vaccine (Season Ended)] Future Scheduled 2023-05-[address] [facility] 00:00:00 (Season Ended) [code = Medic al Center Influenza Vaccine (Season Ended)] Future Scheduled 2023-05-[address] [facility] 00:00:00 (Season Ended) [code = Medic al Center Influenza Vaccine (Season Ended)] Future Scheduled 2023-05-[address] [facility] 00:00:00 (Season Ended) [code = Medic al Center INFLUENZA VACCINE (Season Ended)] Future Scheduled 2023-05-[address] [facility] 00:00:00 (Season Ended) [code = Medic al Center Influenza Vaccine (Season Ended)] Future Scheduled 2023-05-[address] [facility] 00:00:00 (Season Ended) [code = Medic al Center Influenza Vaccine (Season Ended)] Future Scheduled 2023-05-[address] [facility] 00:00:00 (Season Ended) [code = Medic al Center Influenza Vaccine (Season Ended)] Future Scheduled 2023-05-05 Influenza Vaccine (#1) [facility] [code = Influenza Medical Ce nter Vaccine (#1)] Future Scheduled 2023-05-05 Influenza Vaccine (#1) [facility] 00:00:00 [code = Influenza Medical Ce nter Vaccine (#1)] Future Scheduled 2023-05-05 Influenza Vaccine (#1) [facility] 00:00:00 [code = Influenza Medical Ce nter Vaccine (#1)] Future Scheduled 2023-05-05 Influenza Vaccine (#1) [facility] 00:00:00 [code = Influenza Medical Ce nter Vaccine (#1)] Future Scheduled 2023-05-[address] [facility] 00:00:00 (Season Ended) [code = Medic al Center INFLUENZA VACCINE (Season Ended)] Future Scheduled 2023-05-[address] [facility] 00:00:00 (Season Ended) [code = Medic al Center INFLUENZA VACCINE (Season Ended)] Future Scheduled 2023-05-[address] [facility] 00:00:00 (Season Ended) [code = Medic al Center INFLUENZA VACCINE (Season Ended)] Future Scheduled 2022-09-[address] [facility] 00:00:00 (12+) [code = Medical Center DEPRESSION SCREENING (12+)] Future Scheduled 2022-09-[address] [facility] 00:00:00 (12+) [code = Medical Center DEPRESSION SCREENING (12+)] Future Scheduled 2022-09-[address] [facility] 00:00:00 (12+) [code = Medical Center DEPRESSION SCREENING (12+)] Future Scheduled 2022-09-[address] [facility] 00:00:00 (12+) [code = Medical Center DEPRESSION SCREENING (12+)] Future Scheduled 2022-09-[address] [facility] 00:00:00 (12+) [code = Medical Center DEPRESSION SCREENING (12+)] Future Scheduled 2022-09-[address] [facility] 00:00:00 (12+) [code = Medical Center DEPRESSION SCREENING (12+)] Future Scheduled 2022-09-[address] [facility] 00:00:00 (12+) [code = Medical Center DEPRESSION SCREENING (12+)] Future Scheduled 2022-09-[address] [facility] 00:00:00 (12+) [code = Medical Center DEPRESSION SCREENING (12+)] Future Scheduled 2022-09-[address] [facility] 00:00:00 (12+) [code = Medical Center DEPRESSION SCREENING (12+)] Future Scheduled 2022-09-[address] [facility] 00:00:00 (12+) [code = Medical Center DEPRESSION SCREENING (12+)] Future Scheduled 2022-09-[address] [facility] 00:00:00 (12+) [code = Medical Center DEPRESSION SCREENING (12+)] Future Scheduled 2022-09-[address] [facility] 00:00:00 (12+) [code = Medical Center DEPRESSION SCREENING (12+)] Future Scheduled 2022-09-[address] [facility] 00:00:00 (12+) [code = Medical Center DEPRESSION SCREENING (12+)] Future Scheduled 2022-09-[address] [facility] 00:00:00 (12+) [code = Medical Center DEPRESSION SCREENING (12+)] Future Scheduled 2021-12-15 COVID-19 VACCINE (2 - [facility] 00:[facility]:00 Pfizer series) [code = Medic al Center COVID-19 VACCINE (2 - Pfizer series)] Future Scheduled 2021-12-15 COVID-19 VACCINE (2 - [facility] 00:00:00 Pfizer series) [code = Medic al Center COVID-19 VACCINE (2 - Pfizer series)] Future Scheduled 2021-12-15 COVID-19 VACCINE (2 - [facility] 00:00:00 Pfizer series) [code = Medic al Center COVID-19 VACCINE (2 - Pfizer series)] Future Scheduled 2021-12-15 COVID-19 VACCINE (2 - [facility] 00:00:00 Pfizer series) [code = Medic al Center COVID-19 VACCINE (2 - Pfizer series)] Future Scheduled 2021-12-15 COVID-19 VACCINE (2 - [facility] 00:00:00 Pfizer series) [code = Medic al Center COVID-19 VACCINE (2 - Pfizer series)] Future Scheduled 2021-12-15 COVID-19 VACCINE (2 - [facility] 00:00:00 Pfizer series) [code = Medic al Center COVID-19 VACCINE (2 - Pfizer series)] Future Scheduled 2021-12-15 COVID-19 VACCINE (2 - [facility] 00:00:00 Pfizer series) [code = Medic al Center COVID-19 VACCINE (2 - Pfizer series)] Future Scheduled 2021-12-15 COVID-19 VACCINE (2 - [facility] 00:00:00 Pfizer series) [code = Medic al Center COVID-19 VACCINE (2 - Pfizer series)] Future Scheduled 2021-12-15 COVID-19 VACCINE (2 - [facility] 00:00:00 Pfizer series) [code = Medic al Center COVID-19 VACCINE (2 - Pfizer series)] Future Scheduled 2021-12-15 COVID-19 VACCINE (2 - [facility] 00:00:00 Pfizer series) [code = Medic al Center COVID-19 VACCINE (2 - Pfizer series)] Future Scheduled 2021-11-10 COVID-19 VACCINE (2 - [facility] 00:00:00 Pfizer series) [code = Medic al Center COVID-19 VACCINE (2 - Pfizer series)] Future Scheduled 2021-11-10 COVID-19 VACCINE (2 - [facility] 00:00:00 Pfizer series) [code = Medic al Center COVID-19 VACCINE (2 - Pfizer series)] Future Scheduled 2019-04-[address] [facility] malignant neoplasm of Medica l Center cervix (procedure) [code = 287826943] Future Scheduled 2019-04-[address] [facility] 00:00:00 malignant neoplasm of Medica l Center cervix (procedure) [code = 880133554] Future Scheduled 2019-04-[address] [facility] 00:00:00 malignant neoplasm of Medica l Center cervix (procedure) [code = 342846918] Future Scheduled 2019-04-[address] [facility] 00:00:00 malignant neoplasm of Medica l Center cervix (procedure) [code = 919034755] Future Scheduled 2019-04-[address] [facility] 00:00:00 malignant neoplasm of Medica l Center cervix (procedure) [code = 095035925] Future Scheduled 2019-04-[address] [facility] 00:00:00 malignant neoplasm of Medica l Center cervix (procedure) [code = 402415084] Future Scheduled [address] [facility] 00:00:00 malignant neoplasm of Medica l Center cervix (procedure) [code = 772687755] Future Scheduled [address] [facility] 00:00:00 malignant neoplasm of Medica l Center cervix (procedure) [code = 467957017] Future Scheduled [address] [facility] 00:00:00 malignant neoplasm of Medica l Center cervix (procedure) [code = 460272274] Future Scheduled [address] [facility] 00:00:00 malignant neoplasm of Medica l Center cervix (procedure) [code = 639444246] Future Scheduled [address] [facility] 00:00:00 malignant neoplasm of Medica l Center cervix (procedure) [code = 643137035] Future Scheduled [address] [facility] 00:00:00 malignant neoplasm of Medica [facility] Center cervix (procedure) [code = 793297243] Future Scheduled [address] [facility] 00:00:00 malignant neoplasm of Medica l Center cervix (procedure) [code = 598121238] Future Scheduled [address] [facility] 00:00:00 malignant neoplasm of Medica l Center cervix (procedure) [code = 581871603] Future Scheduled [address] [facility] (procedure) [code = Medical Center 55235330] Future Scheduled [address] [facility] 00:00:00 (procedure) [code = Medical Center 54947562] Future Scheduled [address] [facility] 00:00:00 (procedure) [code = [facility] 08256563] Future Scheduled [address] [facility] 00:00:00 (procedure) [code = [facility] 05132572] Future Scheduled [address] [facility] 00:00:00 (procedure) [code = Medical Center 25497367] Future Scheduled [address] [facility] 00:00:00 (procedure) [code = Medical Center 48806808] Future Scheduled [address] [facility] 00:00:00 (procedure) [code = Medical Center 15220071] Future Scheduled [address] [facility] 00:00:00 (procedure) [code = Medical Center 88551275] Future Scheduled [address] [facility] 00:00:00 (procedure) [code = Medical Center 51358548] Future Scheduled [address] [facility] 00:00:00 (procedure) [code = Medical Center 64317256] Future Scheduled [address] [facility] 00:00:00 (procedure) [code = Medical Center 74812499] Future Scheduled [address] [facility] 00:00:00 (procedure) [code = Medical Center 57681462] Future Scheduled 2001 DTAP/TDAP/TD VACCINES CH I [...] Cessation Counseling and Screening (12+)] Future Scheduled 1988 Pneumococcal Vaccine: [facility]:00 0-64 Years (1 - PCV) Medical Center [code = Pneumococcal Vaccine: 0-64 Years (1 - PCV)] Future Scheduled 1988 Pneumococcal Vaccine: [facility] 00:00:00 0-64 Years (1 - PCV) Medical Center [code = Pneumococcal Vaccine: 0-64 Years (1 - PCV)] Future Scheduled 1988 Pneumococcal Vaccine: [facility] 00:00:00 0-64 Years (1 - PCV) Medical Center [code = Pneumococcal Vaccine: 0-64 Years (1 - PCV)] Future Scheduled 1988 Pneumococcal Vaccine: [facility] 00:00:00 0-64 Years (1 - PCV) Medical Center [code = Pneumococcal Vaccine: 0-64 Years (1 - PCV)] Future Scheduled 1988 Pneumococcal Vaccine: [facility] 00:00:00 0-64 Years (1 - PCV) Medical Center [code = Pneumococcal Vaccine: 0-64 Years (1 - PCV)] Future Scheduled 1988 Pneumococcal Vaccine: [facility] 00:00:00 0-64 Years (1 - PCV) Medical Center [code = Pneumococcal Vaccine: 0-64 Years (1 - PCV)] Future Scheduled 1988 Pneumococcal Vaccine: [facility] 00:00:00 0-64 Years (1 - PCV) Medical Center [code = Pneumococcal Vaccine: 0-64 Years (1 - PCV)] Future Scheduled 1988 Pneumococcal Vaccine: [facility] 00:00:00 0-64 Years (1 - PCV) Medical Center [code = Pneumococcal Vaccine: 0-64 Years (1 - PCV)] Future Scheduled 1988 Pneumococcal Vaccine: [facility] 00:00:00 0-64 Years (1 - PCV) Medical Center [code = Pneumococcal Vaccine: 0-64 Years (1 - PCV)] Future Scheduled 1988 Pneumococcal Vaccine: [facility] 00:00:00 0-64 Years (1 - PCV) Medical Center [code = Pneumococcal Vaccine: 0-64 Years (1 - PCV)] Future Scheduled [address] [facility] 00:00:00 0-64 YRS (1 - PCV) Medical C enter [code = PNEUMOCOCCAL VACCINE 0-64 YRS (1 - PCV)] Future Scheduled [address] [facility] 00:00:00 0-64 YRS (1 - PCV) Medical C enter [code = PNEUMOCOCCAL VACCINE 0-64 YRS (1 - PCV)] Future Scheduled 1982 COVID-19 VACCINE (#1) [facility] 00:00:00 [code = COVID-[address] VACCINE (#1)] Future Scheduled 1982 COVID-19 VACCINE (#1) [facility] Test 00:00:00 [code = COVID-[address] VACCINE (#1)] Encounters Start End Encounter Admission Attending Care Care Encounter Source Date/Time Date/Time Type Type Clinicians Facility Department ID 2023-03-09 Outpatient [facility] Surgery [id number] SLE 08:48:52 2023-03-03 Inpatient JUANITA WICK [facility] [id number] SLE 18:30:29 SUSANNA 2023-03-03 2023-03-22 Inpatient JUANITA WICK [facility] Surgery [id number] SLE 12:21:00 18:52:00 SUSANNA 2023-03-13 2023-03-13 Outpatient JUANITA GRAJEDA [facility] [id number] SLE 00:00:00 00:00:00 [facility] 2023-03-10 2023-03-10 [facility] Nicci [facility] [id number] 12:00:00 12:00:00 [facility]23-03-10 2023-03-10 Outpatient JUANITA GRAJEDA [facility] [id number] SLE 00:00:00 00:00:00 [facility] 2023-03-10 2023-03-10 Outpatient JUANITA MALLOY [facility] [id number] SLE 00:00:00 00:00:00 YENIFER 2023-03-08 2023-03-08 Surgery Lillian [facility] [id number] 08:00:00 10:03:00 Jose [facility] 2023-03-08 2023-03-08 Anesthesia Demetrius Dugan [facility] [id number] 07:56:00 09:55:00 Event Yash Fournier [facility] 2023-03-05 2023-03-05 Anesthesia Alvin Alcala [facility] [id number] 19:31:18 19:31:18 Event [facility] 2023-03-04 2023-03-04 Travel [facility] [id number] [facility] 00:00:00 00:00:00 [facility] 2023-03-03 2023-03-03 Anesthesia Caridad [facility] [id number] 16:11:00 17:19:00 Event Maryann [facility] 2023-03-03 2023-03-03 Surgery Debra [facility] [id number] 13:48:00 15:23:00 [facility] 2023-03-01 2023-03-01 Procedure Abdoulaye Johnson [facility] [id number] 14:00:00 15:00:00 visit Debra [facility] 2023-03-01 2023-03-01 Travel [facility] [id number] [facility] 00:00:00 00:00:00 [facility] 2023-02-28 2023-02-28 Outpatient JUANITA JOHNSON [facility] [id number] [facility] 11:39:48 11:39:48 ABDOULAYE 2023-02-28 2023-02-28 Outpatient SLE SLE [id number] [facility] 00:00:00 00:00:00 2023-02-28 2023-02-28 Telephone Eloisa [facility] [id number] 00:00:00 00:00:00 [facility] 2023-02-28 2023-02-28 Travel [facility] [id number] [facility] 00:00:00 00:00:00 [facility] 2023-02-24 2023-02-24 Office Mellissa [facility] [id number] 08:00:00 10:46:55 Visit [facility] 2023-02-24 2023-02-24 Outpatient LEXA MONET SLE [id number] [facility] 07:59:33 10:46:55 YENIFER 2023-02-24 2023-02-24 Outside Nicci [facility] [id number] 00:00:00 00:00:00 Orders [facility] 2023-02-24 2023-02-24 Telephone Packer, [facility] [id number] 00:00:00 00:00:00 [facility] 2023-02-23 2023-02-23 Outpatient EL TATUM [facility] SLE [id number] [facility] 11:38:18 23:59:00 [facility] 2023-02-23 2023-02-23 [facility] [id number] 11:38:18 23:59:00 Encounter [facility] 2023-02-23 2023-02-23 Outpatient JUANITA WINN [facility] SLE [id number] [facility] 11:37:51 11:37:51 [facility] 2023-02-23 2023-02-23 [facility] [id number] 11:37:51 11:37:51 Encounter [facility] 2023-02-23 2023-02-23 Office Grajeda, [facility] [id number] 08:00:00 11:23:03 Visit [facility] 2023-02-23 2023-02-23 Outpatient EL NICCI SLE SLE [id number] SLE 07:59:25 11:23:03 [facility] 2023-02-23 2023-02-23 Treatment Grajeda, [facility] [id number] 10:35:00 10:50:00 [facility] 2023-02-23 2023-02-23 Outpatient EL SLE SLE [id number] [facility] 10:44:57 10:44:57 2023-02-23 2023-02-23 Outpatient EL SLEH [facility] [id number] [facility] 00:00:00 00:00:00 2023-02-23 2023-02-23 Orders Yolanda, [facility] [id number] 00:00:00 00:00:00 Only [facility] 2023-02-23 2023-02-23 Documentat Kurt, [facility] [id number] 00:00:00 00:00:00 ion Jolynn [facility] 2023-02-21 2023-02-21 Orders Tatum, [facility] [id number] 00:00:00 00:00:00 Only Prabha [facility] 2023-02-15 2023-02-15 Telephone Nicci [facility] [id number] 00:00:00 00:00:00 [facility] 2023-01-18 2023-01-20 Inpatient ER YOLANDE FABIAN Oncology [id number] SLE 03:16:00 12:00:00 KIMBERLI 2023-01-18 2023-01-20 Hospital ER Romilateshavicentafacundo Lukasrupa Malik [facility] [id number] 03:16:00 12:00:00 Encounter Mariaa Wilder [facility] 2023-01-18 2023-01-18 Outpatient EL YOLANDE GRAJEDA [facility] [id number] SLE 00:00:00 00:00:00 [facility] 2023-01-18 2023-01-18 Travel [facility] [id number] [facility] 00:00:00 00:00:00 [facility] 2022-05-12 2022-05-12 Emergency Emergency Rassoli, [facility] [id number] [facility] 21:57:00 21:57:00 Amir 44 2022-05-12 2022-05-12 Emergency [facility] [id number] [facility] 21:57:00 21:57:00 44 Results Test Description Test Time Test Comments Results Result [facility] e Comments TISSUE EXAM 2023-03-24 Surgical Pathology Report 18:48:03 Case: [id number] Authorizing Provider: Susanna Wick MD Collected: 03/14/2023 09:04 AM Ordering Location: [address] Received: 03/15/2023 02:25 PM Service Pathologist: Eb Toney MD Specimens: A) - Neck, Neck dissection level 1A B) - Neck, Right, right neck dissection level 1B C) - Neck, Left, Left neck dissection level 1B D) - Soft Tissue, Other, Sub total Glossectomy E) - Soft Tissue, Other, Right floor of mouth margin, true margin inked, stitch anterior F) - Neck, Right, right neck dissection G) - Soft Tissue, Other, Right retromolar trigone margin, true margin inked, stitch pereira anterior H) - Soft Tissue, Other, Right base of tongue margin, new margin, stitch pereira right anterior lateral, true margin inked I) - Neck, Left, Left neck dissection A. LYMPH NODES, LEVEL 1A, NECK DISSECTION: - THREE LYMPH NODES, NEGATIVE FOR METASTATIC CARCINOMA (0/3)B. LYMPH NODES, RIGHT, LEVEL 1B, NECK DISSECTION: - THREE LYMPH NODES NEGATIVE FOR METASTATIC CARCINOMA (0/3)C. LYMPH NODES, LEFT, LEVEL 1B, NECK DISSECTION: - FOUR LYMPH NODES NEGATIVE FOR METASTATIC CARCINOMA (0/4)D. TONGUE, UVULA, AND RIGHT TONSIL, SUBTOTAL GLOSSECTOMY: - INVASIVE SQUAMOUS CELL CARCINOMA, MODERATELY DIFFERENTIATED - SITE: RIGHT POSTERIOR LATERAL TONGUE - SPECIMEN SURGICAL MARGINS: POSITIVE AT RIGHT SOFT TISSUE, OROPHARYNGEAL MUCOSAL MARGIN NEAR TRIGONE, RIGHT BASE OF TONGUE (SEE COMMENT) - PATHOLOGIC STAGE CLASSIFICATION (pTNM, AJCC 8th Edition) pT4a N2b - LYMPHOVASCULAR INVASION IDENTIFIED - EXTENSIVE PERINEURAL INVASION IDENTIFIED - SIZE: 4.1 CM IN GREATEST DIMENSION - DEPTH OF INVASION: AT LEAST 18 MM - p16 IMMUNOHISTOCHEMICAL STAIN NEGATIVEE. FLOOR OF MOUTH, RIGHT, MARGIN, RESECTION: - NEGATIVE FOR MALIGNANCYF. LYMPH NODES, RIGHT, NECK DISSECTION: - THREE OF NINETEEN LYMPH NODES, POSITIVE FOR METASTATIC CARCINOMA (3/19) - LARGEST METASTATIC FOCUS: 1.2 CM - NO EXTRANODAL EXTENSION PRESENT G. RETROMOLAR TRIGONE, RIGHT, MARGIN, RESECTION: - NEGATIVE FOR MALIGNANCYH. BASE OF TONGUE, RIGHT, MARGIN, RESECTION: - NEGATIVE FOR MALIGNANCYI. LYMPH NODES, LEFT, NECK DISSECTION: - TWENTY-TWO LYMPH NODES, NEGATIVE FOR METASTATIC CARCINOMA (0/22) Signing Pathologist Direct Phone Line: [phone] y signed by Eb Toney MD on 03/24/2023 at 6:48 PMRe-excision of the positive margins (floor of mouth, retromolar trigone, right base of tongue) are negative. Clinical correlation is recommended for the significance of the cauterized tumor at right soft tissue margin/positive margin. ORAL CAVITYLIP AND ORAL CAVITY: INCISIONAL BX, EXCISIONAL BX, RESECTION - All Mwqtrzgds5ub Edition - Protocol posted: 08/20/2021PECIMEN Procedure: Glossectomy: subtotal TUMOR Tumor Focality: Unifocal Tumor Site: Oral cavity Tumor Subsite: Lateral border of tongue: posterior right Tumor Laterality: Right Tumor Size: Greatest Dimension (Centimeters): 4.1 cm Additional Dimension (Centimeters): 2.7 cm Additional Dimension (Centimeters): 2.2 cm Histologic Type: : Squamous cell carcinoma, conventional Histologic Grade: G2, moderately differentiated Tumor Depth of Invasion (DOI): At least: 18 mm Lymphovascular Invasion: Present Perineural Invasion: Present Extent of Perineural Invasion: extensive Worst Pattern of Invasion (WPOI): WPOI 5 MARGINS Specimen Margin Status for Invasive Tumor: Invasive tumor present at specimen margin Specimen Margin(s) Involved by Invasive Tumor: right soft tissue Specimen Margin Status for Noninvasive Tumor: All specimen margins negative for high-grade dysplasia / in situ disease Distance from Noninvasive Tumor to Closest Specimen Margin: Cannot be determined Closest Specimen Margin(s) to Noninvasive Tumor: Cannot be determined Tumor Bed Margin Status: Tumor Bed Margin Orientation: Oriented to true margin surface Tumor Bed Margin Status for Invasive Tumor: All tumor bed margins negative for invasive tumor Distance from Invasive Tumor to True Margin Surface: Cannot be determined Tumor Bed Margin Status for Noninvasive Tumor: All tumor bed margins negative for high-grade dysplasia / in situ disease Distance from Noninvasive Tumor to True Margin Surface: Cannot be determined REGIONAL LYMPH NODES Regional Lymph Node Status: : Tumor present in regional lymph node(s) Number of Lymph Nodes with Tumor: 3 Laterality of Lymph Node(s) with Tumor: Ipsilateral (including midline) Extranodal Extension (GLENDY): Not identified Number of Lymph Nodes Examined: 51 PATHOLOGIC STAGE CLASSIFICATION (pTNM, AJCC 8th Edition) Reporting of pT, pN, and (when applicable) pM categories is based on information available to the pathologist at the time the report is issued. As per the AJCC (Chapter 1, 8th Ed.) it is the managing physician's responsibility to establish the final pathologic stage based upon all pertinent information, including but potentially not limited to this pathology report. pT Category: pT4a pN Category: pN2b ADDITIONAL FINDINGS Additional Findings: Epithelial hyperplasia A. 98269X. 56082Z. 87695X. 88047, 43906 x 1, 86935 x 5, 76520 x 1, 85457 x 2E. 61773, 22556 x 1F. 10477D. 98569, 45940S. 24895 45657, 77499 x 1, 55813 x 1I. 98600, 69721 x 1Tongue cancerGlossectomy and bilateral neck lymph node dissectionA. Neck The specimen is received in formalin, labeled with the patient's information and "neck" 3.0 x 2.1 x 0.6 cm piece of gill and yellow fibrofatty tissue. 3 lymph nodes are identified within the specimen, ranging from 0.4 to 0.5 cm in greatest dimension. The cut surfaces are gill-red. The lymph nodes are submitted as follows.A1-1 lymph node, serially sectionedA2-1 lymph node, bisectedA3-1 lymph node, bisectedB. Neck, RightPart B is received in formalin, labeled with the patient's information and" neck, right" is a 5.5 x 4.0 x 1.5 cm aggregate of gill-yellow fibrofatty tissue. There are 4 possible lymph nodes identified, ranging from 0.2 to 1.5 cm in greatest dimension. There is also a 4.1 x 3.5 x 1.0 cm gill-fletcher, lobular gland within the tissue. The gland is serially sectioned to display a gill-fletcher, lobulated cut surface. The lymph nodes and a assisted sales representative section of this gland are submitted as described below.B1-1 possible lymph node, bisectedB2-1 lymph node, bisectedB3-1 lymph node, trisectedB 4-1 lymph node, bisectedB5-assisted sales representative section of glandC. Neck, LeftPart C is received in formalin, labeled with the patient's information and "neck, left" 4.3 x 4.0 x 2.0 cm gill-pink fibrofatty tissue. There are 4 lymph nodes identified, measuring 0.3 to 1.9 cm in greatest dimension. There is also a 4 x 3 x 1.5 cm gill-fletcher gland, which is serially sectioned to reveal a gill-fletcher, lobulated cut surface.C1-C2-1 lymph node, bisectedC3-1 lymph node, sectionedC4-1 lymph node, bisectedC5-1 whole possible nodeC6-assisted sales representative section of glandD. Soft Tissue, OtherThe specimen is received fresh for intraoperative consultation, labeled with the patient's information and" soft tissue" is a 7.5 x 5.0 x 3.5 cm gill-pink mucosal covered glossectomy with attached right uvula and tonsil, measuring 4.0 x 3.0 x 1.0 cm. The right lateral tongue displays a an ulcerated, gill-brown lesion measuring 1.8 x 1.1 cm located 4.2 cm from tip of tongue, 1.2 cm from the base of tongue, 1.0 cm from the tonsil, and 3.0 cm from the uvula. Mucosal margins in the oropharynx and base of tongue (oriented per the surgeon) are submit for frozen section. The specimen is then inked as described below and serially sectioned from the tip of the tongue to the base of the tongue, with the posterior 2 cm sectioned perpendicularly, along with the oropharynx and uvula. There is a firm, gill white mass with infiltrative borders, measuring 4.1 x 2.7 x 2.2 located in the posterior aspect of the tongue. It is 0.2 cm from the superior mucosa, 0.4 cm from the deep margin, abutting the right soft tissue margin, 1.2 cm from the left soft tissue margin, and 0.1 cm from the base of tongue margin (right aspect). There are two additional white lesions within the anterior/mid aspect of the tongue, which measure 1.5 x 0.3 x 0.2 cm, and 1.0 x 0.4 x 0.3 cm individually. They are possibly extending from the main mass. Ink Code:Black- base of tongueRed- left soft tissueGreen- right soft tissueOrange- deep soft tissueRed- superior uvula soft tissueYellow- anterior oropharynx soft tissueBlue- posterior oropharynx soft tissueNot true marginViolet- mucosal margins which have been re-inkedSection Code:D1-D3- oropharyngeal mucosal margin, from uvula to trigoneD4- D6- base of tongue mucosal margin, from left to right D7-D8- floor of mouth mucosal margin, right anterior tongue (yellow anterior and tip)D9- D11- floor of mouth mucosal margin, left, from tip to base of tongue (yellow at tip and anterior)P84-qzyaw 2, start of iddftsahjlF96- slice 3, continuity of sghqztjgrkG37- slice 4, continuity of tblbgvwtmkI80- slice 5, continuity of ivhnangxjgR54- slice 6, continuity of subusakednZ78- slice 7- mass, closest deep sssjixE76- slice 9, Mass, with the closest left soft tissue yslnptW69- Slice 10, assisted sales representative section of massD20- Slice 11, tumor abutting right soft xqgqscI10- D24- base of tongue, perpendicular sections, right side, with closest tumor to base of ejpeqbQ87-J12- assisted sales representative sections of hoqggzmkvcO51- assisted sales representative sections of uvulaE. Soft Tissue, Other the specimen received fresh for intraoperative consultation labeled with the with the patient's information and "right floor of mouth margin, true margin inked, stitch anterior" is a 2.1 x 0.23 x 0.3 cm red-gill soft tissue fragment. The inked margin is reinked blue and a stitch anterior is inked orange. The specimen is entirely submitted for frozen evaluation in cassette E1=FSE.F. Neck, RightPart F is received in formalin, labeled with the patient's information and" right neck dissection" is a 5.0 x 4.0 x 1.0 cm aggregate of gill-yellow fibrofatty tissue. There are multiple lymph nodes identified, ranging from 0.2 to 3.0 cm in greatest dimension. The largest lymph node is serially sectioned, revealing multiple areas of gill-white, irregular discolorations. The lymph nodes are submitted as follows.F1-F4-1 lymph node, serially sectioned (largest)F5- 1 lymph node, bisected F 6-1 lymph node, bisectedF7-1 lymph node, bisectedF8-1 lymph node, bisectedF9-1 lymph node, gsihtyzvG54-9 lymph node, cnqpyxtkL81-1 lymph node, bisectedF 12-1 lymph node, bisectedF 13-4 whole possible wuljeQ81-6 whole possible nodesG. Soft Tissue, Otherspecimen received fresh for intraoperative evaluation and labeled with the patient's information and "right retromolar trigone margin, true margin inked, stitch pereira anterior" is a 2.1 x 1.4 x 0.5 cm red-gill soft tissue fragment. the inked margin is re-inked blue and the anterior stitch is inked orange. The inked margin was shaved and submitted en face for frozen evaluation. the margin for the remanent specimen was inked green, the specimen serially sectioned and entirely submitted for permanent.Cassette code:G1 = FS GG2-G4= RemanentH. Soft Tissue, Other specimen received fresh for intraoperative evaluation and labeled with the patient's information and " right base of tongue margin, new margin, stitch pereira right anterior lateral, true margin inked" is a 2.5 x 2 x 2 cm red-gill soft tissue fragment. the inked margin is re-inked blue and the anterior stitch is inked orange. The inked margin was shaved and submitted en face for frozen evaluation. the margin for the remanent specimen was inked green, the specimen serially sectioned and entirely submitted for permanent.Cassette code:H1 = FSH H2-H4 = remanentI. Neck, LeftPart is received in formalin, labeled with the patient's information and "neck left" is a 5.0 x 3.0 x 1.5 cm aggregate of gill-yellow fibrofatty tissue. Multiple lymph nodes are identified, ranging from 0.1 to 2.0 cm in greatest dimension. The lymph nodes are submitted as follows.I1-I2-1 lymph node, trisectedI 3-1 lymph node, serially sectionedI4-1 lymph node, sectionedI5-1 lymph node, bisectedI6-4 whole lymph nodesI7-5 whole lymph nodesI8-4 whole lymph nodesI9-4 whole lymph eudbgN63-3 whole lymph nodesD. Soft Tissue, OtherFROZEN SECTIONSubtotal glossectomyD1-D6: Right base of tongue and anterior oropharyngeal margin, positive for malignancyReported to Dr. Wick at 11:47 AM on 03/14/2023.Reported by Dr. Arce, pathologist.E. Soft Tissue, Other Right floor of mouth: - negative for malignancy.The results was reported by Dr. Arce to Dr. Wikc at 11:28 AM on 03/14/2023. G. Soft Tissue, OtherRight Retromolar trigone:-Negative for malignancy.The result was reported by Dr. Arce to Dr. Wick at 12:38 PM on 03/14/2023.H. Soft Tissue, OtherRight base of tongue margin:-Negative for malignancy.The result was reported by Dr. Arce to Dr. Wick at 12:38 PM on 03/14/2023.PerformedThe interpretation of this case included the use of immunohistochemistry or special stains.D18, H82FS13 & D2-40: xudpuzpdR33- lfvgctnyH6GC49- vdaallwyV13- negative I10P40- negativeControl Slides Examined: In-house known positive controls were evaluated along with the test tissue. These control slides run alongside of the patients sample show appropriate staining. Internal positive and negative controls when available are evaluated Immunohistochemistry technical testing was performed at [facility], Pathology Laboratory where it was developed and its performance characteristics were determined. It has not been cleared or approved by the U.S. Food and Drug Administration. The FDA has determined that such clearance or approval is not necessary. The test is used for clinical purposes. It should not be regarded as investigational or for research. This laboratory is certified under the Clinical Laboratory Improvement Amendments of 1988 (CLIA-88) as qualified to perform high complexity clinical laboratory testing.[facility], Department of Pathology, [address] [place] [address], [facility]serK[facility], [address] [place] [address], BoeimbKaiser [facility], Department of Pathology, [address] [place] [address], POCT-GLUCOSE METER 2023-03-22 12:40:41 Test Item Value Reference Range Interpretation Comme nts POC-GLUCOSE METER (BEAKER) 107 mg/dL 70-110 : TESTED AT [address] (test code = 1538) [place] [address]: Director Of Sports Medicine/Techni federico ID = [id number] for TIRSO JAVIER [id number] 07:32:41 Test Item Value Reference Range Interpretation Comments MAGNESIUM (BEAKER) (test code = 2.0 mg/dL 1.6-2.6 627) Director Of Sports Medicine ID - [id number] 07:32:41 Test Item Value Reference Range Interpretation Comments PHOSPHORUS (BEAKER) (test code = 5.2 mg/dL 2.3-4.7 H 604) Director Of Sports Medicine ID - EOOBASIC METABOLIC [id number] 07:32:40 Test Item Value Reference Range Interpretation Comments SODIUM (BEAKER) 139 meq/L 136-145 (test code = 381) POTASSIUM 4.1 meq/L 3.5-5.1 (BEAKER) (test code = 379) CHLORIDE (BEAKER) 102 meq/L 98-107 (test code = 382) CO2 (BEAKER) 28 meq/L 22-29 (test code = 355) BLOOD UREA 8 mg/dL 7-21 NITROGEN (BEAKER) (test code = 354) CREATININE 0.59 mg/dL 0.57-1.25 (BEAKER) (test code = 358) GLUCOSE RANDOM 80 mg/dL 70-105 (BEAKER) (test code = 652) CALCIUM (BEAKER) 8.4 mg/dL 8.4-10.2 (test code = 697) EGFR (BEAKER) 117 Interpretatio n of eGFR (test code = mL/min/1.73 values Stage De scription 1092) sq m Result G1 Norm al or high >=90 G2 Mildly decreased 60-89 G3a Mildl y to moderately 45-5 9 G3b Moderately to s everely 30-44 G4 Severl y decreased 15-29 G5 Kidne y failure <15Reported eGF R is based on the CKD-EPI 2020 equation that d oes not use a race coefficientEsti mated GFR is not as accur ate as Creatinine Clementine chance in predicting glom erular filtration rate . Estimated GFR is not appl icable for dialysis patien ts Director Of Sports Medicine ID - EOOPOCT-GLUCOSE [id number] 06:26:25 Test Item Value Reference Range Interpretation Comments POC-GLUCOSE METER 84 mg/dL 70-110 : TESTED A T [facility] [address] (BEAKER) (test code = [place], 1538) [address]: Director Of Sports Medicine/Techni federico ID = [id number] for SEMI EN, HANG CBC (HEMOGRAM ONLY)2023-03-22 06:07:07 Test Item Value Reference Range Interpretation Comments WHITE BLOOD CELL COUNT (BEAKER) 12.6 K/ L 3.5-10.5 H (test code = 775) RED BLOOD CELL COUNT (BEAKER) 2.92 M/ L 3.93-5.22 L (test code = 761) HEMOGLOBIN (BEAKER) (test code = 8.5 GM/DL 11.2-15.7 L 410) HEMATOCRIT (BEAKER) (test code = 25.5 % 34.1-44.9 L 411) MEAN CORPUSCULAR VOLUME (BEAKER) 87 fL 79-95 (test code = 753) MEAN CORPUSCULAR HEMOGLOBIN 29.1 pg 25.6-32.2 (BEAKER) (test code = 751) MEAN CORPUSCULAR HEMOGLOBIN CONC 33.3 GM/DL 32.2-35.5 (BEAKER) (test code = 752) RED CELL DISTRIBUTION WIDTH 16.5 % 11.7-14.4 H (BEAKER) (test code = 412) PLATELET COUNT (BEAKER) (test 413 K/CU MM 150-450 code = 756) MEAN PLATELET VOLUME (BEAKER) 9.8 fL 9.4-12.3 (test code = 754) NUCLEATED RED BLOOD CELLS 0 /100 WBC 0-0 (BEAKER) (test code = 413) POCT-GLUCOSE [id number] 23:51:48 Test Item Value Reference Range Interpretation Comments POC-GLUCOSE METER 127 mg/dL 70-110 H : TESTED A T [facility] 6720 (BEAKER) (test code = [facility]) [address]: Director Of Sports Medicine/Techni federico ID = [id number] for HANG ALMAZAN POCT-GLUCOSE [id number] 15:58:20 Test Item Value Reference Range Interpretation Comments POC-GLUCOSE METER 101 mg/dL 70-110 : TESTED A T [facility] 6720 (BEAKER) (test code = [facility], 153) [address]: Director Of Sports Medicine/Techni federico ID = [id number] for Kera Waltersia POCT-GLUCOSE [id number] 13:10:10 Test Item Value Reference Range Interpretation Comments POC-GLUCOSE METER 102 mg/dL 70-110 : TESTED A T [facility] 6720 (BEAKER) (test code = [facility], 153) [address]: Director Of Sports Medicine/Techni federico ID = [id number] for Sonali Walters POCT-GLUCOSE [id number] 06:57:42 Test Item Value Reference Range Interpretation Comments POC-GLUCOSE METER 98 mg/dL 70-110 : TESTED A T [facility] [address] (BEAKER) (test code = [facility], 1538) [address]: Director Of Sports Medicine/Techni federico ID = [id number] for SEMI EN, HANG [id number] 06:09:48 Test Item Value Reference Range Interpretation Comments MAGNESIUM (BEAKER) (test code = 1.9 mg/dL 1.6-2.6 627) Director Of Sports Medicine ID - SARAH [id number] 06:09:48 Test Item Value Reference Range Interpretation Comments PHOSPHORUS (BEAKER) (test code = 4.2 mg/dL 2.3-4.7 604) Director Of Sports Medicine ID - SARAH WBASIC METABOLIC [id number] 06:09:47 Test Item Value Reference Range Interpretation Comments SODIUM (BEAKER) 139 meq/L 136-145 (test code = 381) POTASSIUM 4.5 meq/L 3.5-5.1 (BEAKER) (test code = 379) CHLORIDE (BEAKER) 101 meq/L 98-107 (test code = 382) CO2 (BEAKER) 31 meq/L 22-29 H (test code = 355) BLOOD UREA 10 mg/dL 7-21 NITROGEN (BEAKER) (test code = 354) CREATININE 0.64 mg/dL 0.57-1.25 (BEAKER) (test code = 358) GLUCOSE RANDOM 104 mg/dL 70-105 (BEAKER) (test code = 652) CALCIUM (BEAKER) 9.1 mg/dL 8.4-10.2 (test code = 697) EGFR (BEAKER) 115 Interpretatio n of eGFR (test code = mL/min/1.73 values Stage De scription 1092) sq m Result G1 Ella l or high >=90 G2 Mildly decreased 60-89 G3a Mildl y to moderately 45- 59 G3b Moderately to s everely 30-44 G4 Severl y decreased 15-29 G5 Kidney failure <15Reported eGF R is based on the CKD-EPI 2020 equation that d oes not use a race coefficientEsti mated GFR is not as accur ate as Creatinine Clementine robson in predicting glom erular filtration rate . Estimated GFR is not appl icable for dialysis patien ts Director Of Sports Medicine ID - SARAH WCBC (HEMOGRAM ONLY)2023-03-21 05:41:00 Test Item Value Reference Range Interpretation Comments WHITE BLOOD CELL COUNT (BEAKER) 13.9 K/ L 3.5-10.5 H (test code = 775) RED BLOOD CELL COUNT (BEAKER) 3.19 M/ L 3.93-5.22 L (test code = 761) HEMOGLOBIN (BEAKER) (test code = 9.3 GM/DL 11.2-15.7 L 410) HEMATOCRIT (BEAKER) (test code = 28.9 % 34.1-44.9 L 411) MEAN CORPUSCULAR VOLUME (BEAKER) 91 fL 79-95 (test code = 753) MEAN CORPUSCULAR HEMOGLOBIN 29.2 pg 25.6-32.2 (BEAKER) (test code = 751) MEAN CORPUSCULAR HEMOGLOBIN CONC 32.2 GM/DL 32.2-35.5 (BEAKER) (test code = 752) RED CELL DISTRIBUTION WIDTH 16.1 % 11.7-14.4 H (BEAKER) (test code = 412) PLATELET COUNT (BEAKER) (test 447 K/CU MM 150-450 code = 756) MEAN PLATELET VOLUME (BEAKER) 10.1 fL 9.4-12.3 (test code = 754) NUCLEATED RED BLOOD CELLS 0 /100 WBC 0-0 (BEAKER) (test code = 413) POCT-GLUCOSE [id number] 02:33:24 Test Item Value Reference Range Interpretation Comments POC-GLUCOSE METER 80 mg/dL 70-110 : TESTED A T [facility] 67[address] (BEAKER) (test code = [facility] [employer] [facility], 1538) [address]: Director Of Sports Medicine/Techni federico ID = [id number] for Sue Brito POCT-GLUCOSE [id number] 18:37:31 Test Item Value Reference Range Interpretation Comments POC-GLUCOSE METER 84 mg/dL 70-110 : TESTED A T [facility] 67[address] (BEAKER) (test code = [facility], 1538) [address]: Director Of Sports Medicine/Techni federico ID = [id number] for Angela Denny POCT-GLUCOSE [id number] 13:00:04 Test Item Value Reference Range Interpretation Comments POC-GLUCOSE METER 91 mg/dL 70-110 : TESTED A T [facility] [address] (BEAKER) (test code = [place], 1538) [address]: Director Of Sports Medicine/Techni federico ID = [id number] for Angela Denny [id number] 06:24:55 Test Item Value Reference Range Interpretation Comments PHOSPHORUS (BEAKER) (test code = 3.2 mg/dL 2.3-4.7 604) Director Of Sports Medicine ID - EOOBASIC METABOLIC [id number] 06:24:54 Test Item Value Reference Range Interpretation Comments SODIUM (BEAKER) 138 meq/L 136-145 (test code = 381) POTASSIUM 3.7 meq/L 3.5-5.1 (BEAKER) (test code = 379) CHLORIDE (BEAKER) 103 meq/L 98-107 (test code = 382) CO2 (BEAKER) 29 meq/L 22-29 (test code = 355) BLOOD UREA 12 mg/dL 7-21 NITROGEN (BEAKER) (test code = 354) CREATININE 0.58 mg/dL 0.57-1.25 (BEAKER) (test code = 358) GLUCOSE RANDOM 82 mg/dL 70-105 (BEAKER) (test code = 652) CALCIUM (BEAKER) 8.8 mg/dL 8.4-10.2 (test code = 697) EGFR (BEAKER) 117 Interpretatio n of eGFR (test code = mL/min/1.73 values Stage De scription 1092) sq m Result G1 Ella l or high >=90 G2 Mildly decreased 60-89 G3a Mildl y to moderately 45-5 9 G3b Moderately to s everely 30-44 G4 Severl y decreased 15-29 G5 Kidney failure <15Reported eGF R is based on the CKD-EPI 2020 equation that d oes not use a race coefficientEsti mated GFR is not as accur ate as Creatinine Clementine robson in predicting glom erular filtration rate . Estimated GFR is not appl icable for dialysis patien ts Director Of Sports Medicine ID - [id number] 06:24:54 Test Item Value Reference Range Interpretation Comments MAGNESIUM (BEAKER) (test code = 1.9 mg/dL 1.6-2.6 627) Director Of Sports Medicine ID - EOOPOCT-GLUCOSE [id number] 05:44:23 Test Item Value Reference Range Interpretation Comments POC-GLUCOSE METER 73 mg/dL 70-110 : TESTED A T [facility] 6720 (BEAKER) (test code = [facility], 1538) [address]: Director Of Sports Medicine/Techni federico ID = [id number] for Ramiro Pitts CBC (HEMOGRAM ONLY)2023-03-20 05:41:41 Test Item Value Reference Range Interpretation Comments WHITE BLOOD CELL COUNT (BEAKER) 14.8 K/ L 3.5-10.5 H (test code = 775) RED BLOOD CELL COUNT (BEAKER) 2.96 M/ L 3.93-5.22 L (test code = 761) HEMOGLOBIN (BEAKER) (test code = 8.4 GM/DL 11.2-15.7 L 410) HEMATOCRIT (BEAKER) (test code = 25.9 % 34.1-44.9 L 411) MEAN CORPUSCULAR VOLUME (BEAKER) 88 fL 79-95 (test code = 753) MEAN CORPUSCULAR HEMOGLOBIN 28.4 pg 25.6-32.2 (BEAKER) (test code = 751) MEAN CORPUSCULAR HEMOGLOBIN CONC 32.4 GM/DL 32.2-35.5 (BEAKER) (test code = 752) RED CELL DISTRIBUTION WIDTH 16.2 % 11.7-14.4 H (BEAKER) (test code = 412) PLATELET COUNT (BEAKER) (test 380 K/CU MM 150-450 code = 756) MEAN PLATELET VOLUME (BEAKER) 10.4 fL 9.4-12.3 (test code = 754) NUCLEATED RED BLOOD CELLS 0 /100 WBC 0-0 (BEAKER) (test code = 413) POCT-GLUCOSE [id number] 01:11:53 Test Item Value Reference Range Interpretation Comments POC-GLUCOSE METER 99 mg/dL 70-110 : TESTED A T [facility] 6720 (BEAKER) (test code = [facility], 1538) [address]: Director Of Sports Medicine/Techni federico ID = [id number] for Ramiro Pitts POCT-GLUCOSE [id number] 18:05:19 Test Item Value Reference Range Interpretation Comments POC-GLUCOSE METER 141 mg/dL 70-110 H : TESTED A T [facility] 6720 (BEAKER) (test code = [facility], 1538) [address]: Director Of Sports Medicine/Techni federico ID = [id number] for Avery Astorga POCT-GLUCOSE [id number] 05:30:38 Test Item Value Reference Range Interpretation Comments POC-GLUCOSE METER 139 mg/dL 70-110 H : TESTED A T [facility] 6720 (BEAKER) (test code = [facility], 1538) [address]: Director Of Sports Medicine/Techni federico ID = [id number] for Ad ams, Paytonetra [id number] 02:57:20 Test Item Value Reference Range Interpretation Comments MAGNESIUM (BEAKER) (test code = 1.9 mg/dL 1.6-2.6 627) [id number] 02:57:20 Test Item Value Reference Range Interpretation Comments PHOSPHORUS (BEAKER) (test code = 3.7 mg/dL 2.3-4.7 604) BASIC METABOLIC [id number] 02:57:19 Test Item Value Reference Range Interpretation Comments SODIUM (BEAKER) 139 meq/L 136-145 (test code = 381) POTASSIUM 4.2 meq/L 3.5-5.1 (BEAKER) (test code = 379) CHLORIDE (BEAKER) 104 meq/L 98-107 (test code = 382) CO2 (BEAKER) 25 meq/L 22-29 (test code = 355) BLOOD UREA 11 mg/dL 7-21 NITROGEN (BEAKER) (test code = 354) CREATININE 0.56 mg/dL 0.57-1.25 L (BEAKER) (test code = 358) GLUCOSE RANDOM 121 mg/dL 70-105 H (BEAKER) (test code = 652) CALCIUM (BEAKER) 9.0 mg/dL 8.4-10.2 (test code = 697) EGFR (BEAKER) 118 Interpretatio n of eGFR (test code = mL/min/1.73 values Stage De scription 1092) sq m Result G1 Ella l or high >=90 G2 Mildly decreased 60-89 G3a Mildl y to moderately 45-5 9 G3b Moderately to s everely 30-44 G4 Severl y decreased 15-29 G5 Kidney failure <15Reported eGF R is based on the CKD-EPI 2020 equation that d oes not use a race coefficientEsti mated GFR is not as accur ate as Creatinine Clementine chance in predicting glom erular filtration rate . Estimated GFR is not appl icable for dialysis patien ts CBC (HEMOGRAM ONLY)2023-03-19 02:39:34 Test Item Value Reference Range Interpretation Comments WHITE BLOOD CELL COUNT (BEAKER) 14.2 K/ L 3.5-10.5 H (test code = 775) RED BLOOD CELL COUNT (BEAKER) 2.89 M/ L 3.93-5.22 L (test code = 761) HEMOGLOBIN (BEAKER) (test code = 8.2 GM/DL 11.2-15.7 L 410) HEMATOCRIT (BEAKER) (test code = 25.7 % 34.1-44.9 L 411) MEAN CORPUSCULAR VOLUME (BEAKER) 89 fL 79-95 (test code = 753) MEAN CORPUSCULAR HEMOGLOBIN 28.4 pg 25.6-32.2 (BEAKER) (test code = 751) MEAN CORPUSCULAR HEMOGLOBIN CONC 31.9 GM/DL 32.2-35.5 L (BEAKER) (test code = 752) RED CELL DISTRIBUTION WIDTH 16.4 % 11.7-14.4 H (BEAKER) (test code = 412) PLATELET COUNT (BEAKER) (test 325 K/CU MM 150-450 code = 756) MEAN PLATELET VOLUME (BEAKER) 10.5 fL 9.4-12.3 (test code = 754) NUCLEATED RED BLOOD CELLS 0 /100 WBC 0-0 (BEAKER) (test code = 413) POCT-GLUCOSE [id number] 23:35:47 Test Item Value Reference Range Interpretation Comments POC-GLUCOSE METER 146 mg/dL 70-110 H : TESTED A T [facility] 6720 (BEAKER) (test code = [place], 1538) [address]: Director Of Sports Medicine/Techni federico ID = [id number] for Ad Darline engle POCT-GLUCOSE [id number] 13:10:55 Test Item Value Reference Range Interpretation Comments POC-GLUCOSE METER 98 mg/dL 70-110 : TESTED A T [facility] 6720 (BEAKER) (test code = [place], 1538) [id number]: Director Of Sports Medicine/Techni federico ID = [id number] for NIST OR, TIFFANY [id number] 02:07:47 Test Item Value Reference Range Interpretation Comments PHOSPHORUS (BEAKER) (test code = 3.7 mg/dL 2.3-4.7 604) Director Of Sports Medicine ID - [id number] 02:07:46 Test Item Value Reference Range Interpretation Comments MAGNESIUM (BEAKER) (test code = 1.8 mg/dL 1.6-2.6 627) Director Of Sports Medicine ID - MARCOBASIC METABOLIC [id number] 02:07:46 Test Item Value Reference Range Interpretation Comments SODIUM (BEAKER) 142 meq/L 136-145 (test code = 381) POTASSIUM 4.2 meq/L 3.5-5.1 (BEAKER) (test code = 379) CHLORIDE (BEAKER) 108 meq/L 98-107 H (test code = 382) CO2 (BEAKER) 24 meq/L 22-29 (test code = 355) BLOOD UREA 8 mg/dL 7-21 NITROGEN (BEAKER) (test code = 354) CREATININE 0.61 mg/dL 0.57-1.25 (BEAKER) (test code = 358) GLUCOSE RANDOM 130 mg/dL 70-105 H (BEAKER) (test code = 652) CALCIUM (BEAKER) 9.3 mg/dL 8.4-10.2 (test code = 697) EGFR (BEAKER) 116 Interpretatio n of eGFR (test code = mL/min/1.73 values Stage De scription 1092) sq m Result G1 Ella l or high >=90 G2 Mildly decreased 60-89 G3a Mildl y to moderately 45-5 9 G3b Moderately to s everely 30-44 G4 Severl y decreased 15-29 G5 Kidney failure <15Reported eGF R is based on the CKD-EPI 2020 equation that d oes not use a race coefficientEsti mated GFR is not as accur ate as Creatinine Clementine chance in predicting glom erular filtration rate . Estimated GFR is not appl icable for dialysis patien ts Director Of Sports Medicine ID - MARCOCBC (HEMOGRAM ONLY)2023-03-18 01:43:23 Test Item Value Reference Range Interpretation Comments WHITE BLOOD CELL COUNT (BEAKER) 13.9 K/ L 3.5-10.5 H (test code = 775) RED BLOOD CELL COUNT (BEAKER) 2.89 M/ L 3.93-5.22 L (test code = 761) HEMOGLOBIN (BEAKER) (test code = 8.4 GM/DL 11.2-15.7 L 410) HEMATOCRIT (BEAKER) (test code = 26.2 % 34.1-44.9 L 411) MEAN CORPUSCULAR VOLUME (BEAKER) 91 fL 79-95 (test code = 753) MEAN CORPUSCULAR HEMOGLOBIN 29.1 pg 25.6-32.2 (BEAKER) (test code = 751) MEAN CORPUSCULAR HEMOGLOBIN CONC 32.1 GM/DL 32.2-35.5 L (BEAKER) (test code = 752) RED CELL DISTRIBUTION WIDTH 16.9 % 11.7-14.4 H (BEAKER) (test code = 412) PLATELET COUNT (BEAKER) (test 303 K/CU MM 150-450 code = 756) MEAN PLATELET VOLUME (BEAKER) 10.4 fL 9.4-12.3 (test code = 754) NUCLEATED RED BLOOD CELLS 0 /100 WBC 0-0 (BEAKER) (test code = 413) POCT-GLUCOSE [id number] 06:11:57 Test Item Value Reference Range Interpretation Comments POC-GLUCOSE METER 116 mg/dL 70-110 H : [facility] ([facility]ER) (test code = [place], 1538) [id number]: Director Of Sports Medicine/Techni federico ID = [id number] for IB ENEME, EUCHERIA BASIC METABOLIC [id number] 04:24:08 Test Item Value Reference Range Interpretation Comments SODIUM (BEAKER) 143 meq/L 136-145 (test code = 381) POTASSIUM 3.9 meq/L 3.5-5.1 (BEAKER) (test code = 379) CHLORIDE (BEAKER) 109 meq/L 98-107 H (test code = 382) CO2 (BEAKER) 26 meq/L 22-29 (test code = 355) BLOOD UREA 11 mg/dL 7-21 NITROGEN (BEAKER) (test code = 354) CREATININE 0.61 mg/dL 0.57-1.25 (BEAKER) (test code = 358) GLUCOSE RANDOM 143 mg/dL 70-105 H (BEAKER) (test code = 652) CALCIUM (BEAKER) 8.9 mg/dL 8.4-10.2 (test code = 697) EGFR (BEAKER) 116 Interpretatio n of eGFR (test code = mL/min/1.73 values Stage De scription 1092) sq m Result G1 Ella l or high >=90 G2 Mildly decreased 60-89 G3a Mildl y to moderately 45-5 9 G3b Moderately to s everely 30-44 G4 Severl y decreased 15-29 G5 Kidney failure <15Reported eGF R is based on the CKD-EPI 2020 equation that d oes not use a race coefficientEsti mated GFR is not as accur ate as Creatinine Clementine robson in predicting glom erular filtration rate . Estimated GFR is not appl icable for dialysis patien ts Director Of Sports Medicine ID - [id number] 04:24:08 Test Item Value Reference Range Interpretation Comments MAGNESIUM (BEAKER) (test code = 3.9 mg/dL 1.6-2.6 H 627) Director Of Sports Medicine ID - [id number] 04:24:08 Test Item Value Reference Range Interpretation Comments PHOSPHORUS (BEAKER) (test code = 3.1 mg/dL 2.3-4.7 604) Director Of Sports Medicine ID - ADMINCBC (HEMOGRAM ONLY)2023-03-17 03:52:15 Test Item Value Reference Range Interpretation Comments WHITE BLOOD CELL COUNT (BEAKER) 16.6 K/ L 3.5-10.5 H (test code = 775) RED BLOOD CELL COUNT (BEAKER) 2.96 M/ L 3.93-5.22 L (test code = 761) HEMOGLOBIN (BEAKER) (test code = 8.4 GM/DL 11.2-15.7 L 410) HEMATOCRIT (BEAKER) (test code = 26.9 % 34.1-44.9 L 411) MEAN CORPUSCULAR VOLUME (BEAKER) 91 fL 79-95 (test code = 753) MEAN CORPUSCULAR HEMOGLOBIN 28.4 pg 25.6-32.2 (BEAKER) (test code = 751) MEAN CORPUSCULAR HEMOGLOBIN CONC 31.2 GM/DL 32.2-35.5 L (BEAKER) (test code = 752) RED CELL DISTRIBUTION WIDTH 17.1 % 11.7-14.4 H (BEAKER) (test code = 412) PLATELET COUNT (BEAKER) (test 251 K/CU MM 150-450 code = 756) MEAN PLATELET VOLUME (BEAKER) 10.8 fL 9.4-12.3 (test code = 754) NUCLEATED RED BLOOD CELLS 0 /100 WBC 0-0 (BEAKER) (test code = 413) POCT-GLUCOSE [id number] 00:05:32 Test Item Value Reference Range Interpretation Comments POC-GLUCOSE METER 125 mg/dL 70-110 H : [facility] (BEAKER) (test code = [facility], 1538) [address]: Director Of Sports Medicine/Techni federico ID = [id number] for IB ALICIA EUCIA POCT-GLUCOSE [id number] 18:44:19 Test Item Value Reference Range Interpretation Comments POC-GLUCOSE METER 125 mg/dL 70-110 H : [facility] (test code = TESTED AT [facility] 67[address] 1538) [facility], [address]: Director Of Sports Medicine/Techni federico ID = [id number] for Senia Villatoro POCT-GLUCOSE [id number] 13:09:35 Test Item Value Reference Range Interpretation Comments POC-GLUCOSE METER 108 mg/dL 70-110 : TESTED A T [facility] 67[address] (BEAKER) (test code = [facility], 1538) [address]: Director Of Sports Medicine/Techni federico ID = [id number] for Senia Villatoro [id number] 05:44:01 Test Item Value Reference Range Interpretation Comments PHOSPHORUS (BEAKER) (test code = 3.4 mg/dL 2.3-4.7 604) Director Of Sports Medicine ID - MMBASIC METABOLIC [id number] 05:44:00 Test Item Value Reference Range Interpretation Comments SODIUM (BEAKER) 141 meq/L 136-145 (test code = 381) POTASSIUM 4.2 meq/L 3.5-5.1 (BEAKER) (test code = 379) CHLORIDE (BEAKER) 106 meq/L 98-107 (test code = 382) CO2 (BEAKER) 28 meq/L 22-29 (test code = 355) BLOOD UREA 12 mg/dL 7-21 NITROGEN (BEAKER) (test code = 354) CREATININE 0.69 mg/dL 0.57-1.25 (BEAKER) (test code = 358) GLUCOSE RANDOM 123 mg/dL 70-105 H (BEAKER) (test code = 652) CALCIUM (BEAKER) 9.4 mg/dL 8.4-10.2 (test code = 697) EGFR (BEAKER) 112 Interpretatio n of eGFR (test code = mL/min/1.73 values Stage De scription 1092) sq m Result G1 Ella l or high >=90 G2 Mildly decreased 60-89 G3a Mildl y to moderately 45-5 9 G3b Moderately to s everely 30-44 G4 Severl y decreased 15-29 G5 Kidney failure <15Reported eGF R is based on the CKD-EPI 2020 equation that d oes not use a race coefficientEsti mated GFR is not as accur ate as Creatinine Clementine robson in predicting glom erular filtration rate . Estimated GFR is not appl icable for dialysis patien ts Director Of Sports Medicine ID - [id number] 05:44:00 Test Item Value Reference Range Interpretation Comments MAGNESIUM (BEAKER) (test code = 2.6 mg/dL 1.6-2.6 627) Director Of Sports Medicine ID - MMCBC (HEMOGRAM ONLY)2023-03-16 05:40:09 Test Item Value Reference Range Interpretation Comments WHITE BLOOD CELL COUNT (BEAKER) 19.3 K/ L 3.5-10.5 H (test code = 775) RED BLOOD CELL COUNT (BEAKER) 2.98 M/ L 3.93-5.22 L (test code = 761) HEMOGLOBIN (BEAKER) (test code = 8.7 GM/DL 11.2-15.7 L 410) HEMATOCRIT (BEAKER) (test code = 26.8 % 34.1-44.9 L 411) MEAN CORPUSCULAR VOLUME (BEAKER) 90 fL 79-95 (test code = 753) MEAN CORPUSCULAR HEMOGLOBIN 29.2 pg 25.6-32.2 (BEAKER) (test code = 751) MEAN CORPUSCULAR HEMOGLOBIN CONC 32.5 GM/DL 32.2-35.5 (BEAKER) (test code = 752) RED CELL DISTRIBUTION WIDTH 17.1 % 11.7-14.4 H (BEAKER) (test code = 412) PLATELET COUNT (BEAKER) (test 256 K/CU MM 150-450 code = 756) MEAN PLATELET VOLUME (BEAKER) 11.2 fL 9.4-12.3 (test code = 754) NUCLEATED RED BLOOD CELLS 0 /100 WBC 0-0 (BEAKER) (test code = 413) POCT-GLUCOSE [id number] 00:06:45 Test Item Value Reference Range Interpretation Comments POC-GLUCOSE METER 127 mg/dL 70-110 H : TESTED A T [facility] 6720 (BEAKER) (test code [facility], = 1538) [address]: Director Of Sports Medicine/Techni federico ID = [id number] for Balwinder Smith POCT-GLUCOSE [id number] 17:44:55 Test Item Value Reference Range Interpretation Comments POC-GLUCOSE METER 119 mg/dL 70-110 H : TESTED A T [facility] 6720 (BEAKER) (test code = [facility], 1538) [address]: Director Of Sports Medicine/Techni federico ID = [id number] for Senia Villatoro POCT-GLUCOSE [id number] 14:16:32 Test Item Value Reference Range Interpretation Comments POC-GLUCOSE METER 120 mg/dL 70-110 H : TESTED A T [facility] 6720 (BEAKER) (test code = [facility], 1538) [address]: Director Of Sports Medicine/Techni federico ID = [id number] for Senia Villatoro [id number] 05:50:48 Test Item Value Reference Range Interpretation Comments MAGNESIUM (BEAKER) (test code = 1.5 mg/dL 1.6-2.6 L 627) Director Of Sports Medicine ID - SARAH [id number] 05:50:48 Test Item Value Reference Range Interpretation Comments PHOSPHORUS (BEAKER) (test code = 4.0 mg/dL 2.3-4.7 604) Director Of Sports Medicine ID - SARAH WBASIC METABOLIC [id number] 05:50:47 Test Item Value Reference Range Interpretation Comments SODIUM (BEAKER) 137 meq/L 136-145 (test code = 381) POTASSIUM 4.1 meq/L 3.5-5.1 (BEAKER) (test code = 379) CHLORIDE (BEAKER) 104 meq/L 98-107 (test code = 382) CO2 (BEAKER) 22 meq/L 22-29 (test code = 355) BLOOD UREA 12 mg/dL 7-21 NITROGEN (BEAKER) (test code = 354) CREATININE 0.74 mg/dL 0.57-1.25 (BEAKER) (test code = 358) GLUCOSE RANDOM 155 mg/dL 70-105 H (BEAKER) (test code = 652) CALCIUM (BEAKER) 9.7 mg/dL 8.4-10.2 (test code = 697) EGFR (BEAKER) 105 Interpretati on of eGFR (test code = mL/min/1.73 values Stage De scription 1092) sq m Result G1 Ella l or high >=90 G2 Mildly decreased 60-89 G3a Mildl y to moderately 45-5 9 G3b Moderately to s everely 30-44 G4 Severl y decreased 15-29 G5 Kidney failure <15Reported eGF R is based on the CKD-EPI 2020 equation that d oes not use a race coefficientEsti mated GFR is not as accur ate as Creatinine Clementine robson in predicting glom erular filtration rate . Estimated GFR is not appl icable for dialysis patien ts Director Of Sports Medicine ID - SARAH [facility] (HEMOGRAM ONLY)2023-03-15 05:18:47 Test Item Value Reference Range Interpretation Comments WHITE BLOOD CELL COUNT (BEAKER) 22.0 K/ L 3.5-10.5 H (test code = 775) RED BLOOD CELL COUNT (BEAKER) 3.74 M/ L 3.93-5.22 L (test code = 761) HEMOGLOBIN (BEAKER) (test code = 10.6 GM/DL 11.2-15.7 L 410) HEMATOCRIT (BEAKER) (test code = 32.4 % 34.1-44.9 L 411) MEAN CORPUSCULAR VOLUME (BEAKER) 87 fL 79-95 (test code = 753) MEAN CORPUSCULAR HEMOGLOBIN 28.3 pg 25.6-32.2 (BEAKER) (test code = 751) MEAN CORPUSCULAR HEMOGLOBIN CONC 32.7 GM/DL 32.2-35.5 (BEAKER) (test code = 752) RED CELL DISTRIBUTION WIDTH 16.8 % 11.7-14.4 H (BEAKER) (test code = 412) PLATELET COUNT (BEAKER) (test 293 K/CU MM 150-450 code = 756) MEAN PLATELET VOLUME (BEAKER) 10.8 fL 9.4-12.3 (test code = 754) NUCLEATED RED BLOOD CELLS 0 /100 WBC 0-0 (BEAKER) (test code = 413) HGB/HCT (H&H) - STAT [id number] 16:32:34 Test Item Value Reference Range Interpretation Comments HEMOGLOBIN (BEAKER) (test code = 11.2 GM/DL 12.0-15.0 L 410) HEMATOCRIT (BEAKER) (test code = 33.0 % 36.0-45.0 L 411) BLOOD GAS, [id number] 16:32:34 Test Item Value Reference Range Interpretation Comments PH ARTERIAL (BEAKER) (test code = 7.42 7.35-7.45 383) PCO2 ARTERIAL (BEAKER) (test code 33 mm Hg 35-45 L = 384) PO2 ARTERIAL (BEAKER) (test code 155 mm Hg 80-90 H = 385) O2 SATURATION ARTERIAL (BEAKER) 99.0 % 96.0-97.0 H (test code = 386) HCO3 ARTERIAL (BEAKER) (test code 21 mmol/L 21-29 = 388) BASE EXCESS ARTERIAL (BEAKER) -2.8 mmol/L -2.0-3.0 L (test code = 387) PATIENT TEMPERATURE (BEAKER) 37.0 (test code = 1818) FIO2 (BEAKER) (test code = 1819) 30.0 CALCIUM, [id number] 16:32:33 Test Item Value Reference Range Interpretation Comments CALCIUM IONIZED (BEAKER) (test 1.14 mmol/L 1.12-1.27 code = 698) PH, BLOOD (BEAKER) (test code = 7.42 1810) GLUCOSE-STAT [id number] 16:32:14 Test Item Value Reference Range Interpretation Comments GLUCOSE RANDOM (BEAKER) (test code 142 mg/dL 70-110 H = 652) BLOOD GAS, [id number] 13:13:17 Test Item Value Reference Range Interpretation Comments PH ARTERIAL (BEAKER) (test code = 7.42 7.35-7.45 383) PCO2 ARTERIAL (BEAKER) (test code 36 mm Hg 35-45 = 384) PO2 ARTERIAL (BEAKER) (test code 118 mm Hg 80-90 H = 385) O2 SATURATION ARTERIAL (BEAKER) 98.3 % 96.0-97.0 H (test code = 386) HCO3 ARTERIAL (BEAKER) (test code 23 mmol/L 21-29 = 388) BASE EXCESS ARTERIAL (BEAKER) -1.3 mmol/L -2.0-3.0 (test code = 387) PATIENT TEMPERATURE (BEAKER) 37.3 (test code = 1818) FIO2 (BEAKER) (test code = 1819) 28.0 CALCIUM, [id number] 13:13:16 Test Item Value Reference Range Interpretation Comments CALCIUM IONIZED (BEAKER) (test 1.28 mmol/L 1.12-1.27 H code = 698) PH, BLOOD (BEAKER) (test code = 7.43 1810) POTASSIUM-STAT [id number] 13:12:06 Test Item Value Reference Range Interpretation Comments POTASSIUM (BEAKER) (test code = 4.3 meq/L 3.6-5.5 379) HGB/HCT (H&H) - STAT [id number] 13:12:06 Test Item Value Reference Range Interpretation Comments HEMOGLOBIN (BEAKER) (test code = 12.8 GM/DL 12.0-15.0 410) HEMATOCRIT (BEAKER) (test code = 38.0 % 36.0-45.0 411) GLUCOSE-STAT [id number] 13:12:05 Test Item Value Reference Range Interpretation Comments GLUCOSE RANDOM (BEAKER) (test code 119 mg/dL 70-110 H = 652) SODIUM NA-STAT [id number] 13:12:05 Test Item Value Reference Range Interpretation Comments SODIUM (BEAKER) (test code = 381) 135 meq/L 136-145 L TISSUE [id number] 12:28:43Surgical Pathology Report Case: [id number] Authorizing Provider: Susanna Wick MD Collected: 03/03/2023 04:51 PM Ordering Location: [facility] Received: 03/06/2023 10:23 AM SERVICES Pathologist: Nick Banks MD Specimen: Tongue, RIGHT ANTERIOR TONSILAR PILLAR A. RIGHT ANTERIOR TONSILLAR PILLAR, BIOPSY - LYMPHOID TISSUE, NEGATIVE FOR CARCINOMA. Signing Pathologist Direct Phone Line: [phone] signed by Nick Banks MD on 03/14/2023 at 12:28 PMImmunostains for AE1/AE3 and p40 are negative.[id number], [id number], 34221Gxpgnt cancerA. TongueReceived fresh labeled with the patient's name, medical record number and "tongue" is a 0.6 x 0.3 x 0.2 cm red soft tissue fragment submitted in toto in A1.ALIA Sorto PA (ASCP)cmPerformed.The interpretation of this case included the use of immunohistochemistry or special stains.Control Slides Examined: In-house known positive controls were evaluated along with the test tissue. These control slides run alongside of the patients sample show appropriate staining. Internal positive and negative controls when available are evaluated Immunohistochemistry technical testing was performed at [facility], Pathology Laboratory where it was developed and its performance characteristics were determined. It has not been cleared or approved by the U.S. Food and Drug Administration. The FDA has determined that such clearance or approval is not necessary. The test is used for clinical purposes. It should not be regarded as investigational or for research. This laboratory is certified under the Clinical Laboratory Improvement Amendments of 1988 (CLIA-88) as qualified to perform high complexity clinical laboratory testing.SODIUM NA-STAT [id number] 08:29:01 Test Item Value Reference Range Interpretation Comments SODIUM (BEAKER) (test code = 381) 134 meq/L 136-145 L CALCIUM, [id number] 08:29:00 Test Item Value Reference Range Interpretation Comments CALCIUM IONIZED (BEAKER) (test 1.10 mmol/L 1.12-1.27 L code = 698) PH, BLOOD (BEAKER) (test code = 7.45 1810) BLOOD GAS, [id number] 08:29:00 Test Item Value Reference Range Interpretation Comments PH ARTERIAL (BEAKER) (test code = 7.46 7.35-7.45 H 383) PCO2 ARTERIAL (BEAKER) (test code 33 mm Hg 35-45 L = 384) PO2 ARTERIAL (BEAKER) (test code 278 mm Hg 80-90 H = 385) O2 SATURATION ARTERIAL (BEAKER) 99.7 % 96.0-97.0 H (test code = 386) HCO3 ARTERIAL (BEAKER) (test code 23 mmol/L 21-29 = 388) BASE EXCESS ARTERIAL (BEAKER) -0.1 mmol/L -2.0-3.0 (test code = 387) PATIENT TEMPERATURE (BEAKER) 36.1 (test code = 1818) FIO2 (BEAKER) (test code = 1819) 54.0 POTASSIUM-STAT [id number] 08:27:11 Test Item Value Reference Range Interpretation Comments POTASSIUM (BEAKER) (test code = 4.4 meq/L 3.6-5.5 379) HGB/HCT (H&H) - STAT [id number] 08:27:11 Test Item Value Reference Range Interpretation Comments HEMOGLOBIN (BEAKER) (test code = 12.3 GM/DL 12.0-15.0 410) HEMATOCRIT (BEAKER) (test code = 36.0 % 36.0-45.0 411) GLUCOSE-STAT [id number] 08:27:10 Test Item Value Reference Range Interpretation Comments GLUCOSE RANDOM (BEAKER) (test code = 92 mg/dL 70-110 652) SARS-COV2/RT-PCR ([facility])2023-03-14 07:10:29 Test Item Value Reference Range Interpretation Comments SARS-COV2/RT-PCR Negative Negative The SARS-Co V-2 target (test code = nucleic acids a re not [id number]) detected in thi s specimen. Negative result s do not preclude SARS-C oV-2 infection and s hould not be used as the angelina e basis for patient managem ent decisions. Nega tive results must be combine d with clinical observ ations, patient history , and epidemiological information. A false negativ e result may occur if a spec imen is improperly ford ected, transported or handled. This SARS CoV-2 test is a rapid, real-time RT-PC R test intended for th e qualitative detection of nu cleic acid from SARS-CoV-2 in a nasopharyngeal swab specimen collected from individuals suspected of CO VID-19 by their healthcar e provider. This test has been authorized by FDA under an EUA for use by authorized laboratories. This test is only authorized for the duration of the declaration that circumstances exist justifying the authorization of emergency use of in vitro diagnostic tests for detection and/or diagnosis of COVID-19 under Section 564(b)(1) of the Federal Food, Drug and Cosmetic Act, 21 U.S.C. 360bbb-3(b)(1), unless the authorization is terminated or revoked sooner. Fact Sheet for Healthcare Providers: https://www.[employer]/Documents/Xpert%20Xpress%20SARS%20CoV-2/Fact%20Sheets/3023802%64HWRI-UYV-8%20 HEALTHCARE%20PROVIDERS%20FACT%20SHEET.pdf Fact Sheet for Healthcare Patients: https://www.[employer]/Documents/Xpert%20Xp ress%20SARS%20CoV-2/Fact%20Sheets/302-3801%46UAID-UAC-6%20PATIENT%20FACT%20SHEET .[id number] 03:44:35 Test Item Value Reference Range Interpretation Comments MAGNESIUM (BEAKER) (test code = 1.9 mg/dL 1.6-2.6 627) Director Of Sports Medicine LARON SMITH [id number] 03:44:35 Test Item Value Reference Range Interpretation Comments PHOSPHORUS (BEAKER) (test code = 5.0 mg/dL 2.3-4.7 H 604) Director Of Sports Medicine LARON SMITH WBASIC METABOLIC [id number] 03:44:34 Test Item Value Reference Range Interpretation Comments SODIUM (BEAKER) 136 meq/L 136-145 (test code = 381) POTASSIUM 4.8 meq/L 3.5-5.1 (BEAKER) (test code = 379) CHLORIDE (BEAKER) 100 meq/L 98-107 (test code = 382) CO2 (BEAKER) 26 meq/L 22-29 (test code = 355) BLOOD UREA 16 mg/dL 7-21 NITROGEN (BEAKER) (test code = 354) CREATININE 0.74 mg/dL 0.57-1.25 (BEAKER) (test code = 358) GLUCOSE RANDOM 107 mg/dL 70-105 H (BEAKER) (test code = 652) CALCIUM (BEAKER) 10.1 mg/dL 8.4-10.2 (test code = 697) EGFR (BEAKER) 105 Interpretatio n of eGFR (test code = mL/min/1.73 values Stage De scription 1092) sq m Result G1 Ella l or high >=90 G2 Mildly decreased 60-89 G3a Mildl y to moderately 45-5 9 G3b Moderately to s everely 30-44 G4 Severl y decreased 15-29 G5 Kidney failure <15Reported eGF R is based on the CKD-EPI 2020 equation that d oes not use a race coefficientEsti mated GFR is not as accur ate as Creatinine Clementine robson in predicting glom erular filtration rate . Estimated GFR is not appl icable for dialysis patien ts Director Of Sports Medicine ID - ASRAH [id number] 03:35:20 Test Item Value Reference Range Interpretation Comments PROTIME (BEAKER) (test code = 12.6 seconds 11.9-14.2 759) INR (BEAKER) (test code = 370) 0.96 <=5.90 PARTIAL THROMBOPLASTIN TIME 36.4 seconds 22.5-36.0 H (BEAKER) (test code = 760) RECOMMENDED COUMADIN/WARFARIN INR THERAPY RANGESSTANDARD DOSE: 2.0 - 3.0 Includes: PROPHYLAXIS for venous thrombosis, systemic embolization; TREATMENT for venous thrombosis and/or pulmonary embolus.HIGH RISK: Target INR is 2.5-3.5 for patients with mechanical heart valves. SCREEN, [id number] 19:22:08 Test Item Value Reference Range Interpretation Comments TEST URINE (BEAKER) (test Negative Negative code = 583) POC-Glucose [id number] 11:56:01 Test Item Value Reference Range Interpretation Comments POC-Glucose Meter (test 95 mg/dL 70-110 : TE STED AT [facility] code = 1538) [address] [place], [address]: Director Of Sports Medicine/Techni federico ID = [id number] for Dewey Arora tone Lab Interpretation (test Normal code = 02470-7) [place] HospitalPOCT-GLUCOSE [id number] 11:56:01 Test Item Value Reference Range Interpretation Comments POC-GLUCOSE METER 95 mg/dL 70-110 : TESTED A T [facility] 6720 (BEAKER) (test code = P[place], 1538) [address]: Director Of Sports Medicine/Techni federico ID = [id number] for Marsha Petty POCT-GLUCOSE [id number] 06:17:24 Test Item Value Reference Range Interpretation Comments POC-GLUCOSE METER 160 mg/dL 70-110 H : TESTED A T [facility] 6720 (BEAKER) (test code = PAV[place], 1538) [address]: Director Of Sports Medicine/Techni federico ID = [id number] for HANG ALMAZAN [id number] 04:44:38 Test Item Value Reference Range Interpretation Comments MAGNESIUM (BEAKER) (test code = 1.9 mg/dL 1.6-2.6 627) Director Of Sports Medicine ID - [id number] 04:44:38 Test Item Value Reference Range Interpretation Comments PHOSPHORUS (BEAKER) (test code = 5.3 mg/dL 2.3-4.7 H 604) Director Of Sports Medicine ID - EOOBASIC METABOLIC [id number] 04:44:37 Test Item Value Reference Range Interpretation Comments SODIUM (BEAKER) 136 meq/L 136-145 (test code = 381) POTASSIUM 4.7 meq/L 3.5-5.1 (BEAKER) (test code = 379) CHLORIDE (BEAKER) 99 meq/L 98-107 (test code = 382) CO2 (BEAKER) 28 meq/L 22-29 (test code = 355) BLOOD UREA 11 mg/dL 7-21 NITROGEN (BEAKER) (test code = 354) CREATININE 0.63 mg/dL 0.57-1.25 (BEAKER) (test code = 358) GLUCOSE RANDOM 93 mg/dL 70-105 (BEAKER) (test code = 652) CALCIUM (BEAKER) 10.5 mg/dL 8.4-10.2 H (test code = 697) EGFR (BEAKER) 115 Interpretatio n of eGFR (test code = mL/min/1.73 values Stage De scription 1092) sq m Result G1 Ella l or high >=90 G2 Mildly decreased 60-89 G3a Mildl y to moderately 45-5 9 G3b Moderately to s everely 30-44 G4 Severl y decreased 15-29 G5 Kidney failure <15Reported eGF R is based on the CKD-EPI 2020 equation that d oes not use a race coefficientEsti mated GFR is not as accur ate as Creatinine Clementine chance in predicting glom erular filtration rate . Estimated GFR is not appl icable for dialysis patishiraz khan Director Of Sports Medicine ID - EOOPOCT-GLUCOSE [id number] 00:21:01 Test Item Value Reference Range Interpretation Comments POC-GLUCOSE METER 108 mg/dL 70-110 : TESTED A T [facility] 6720 (BEAKER) (test code = [facility], 1538) 14[address]: Director Of Sports Medicine/Techni federico ID = [id number] for HANG ALMAZAN POCT-GLUCOSE [id number] 16:05:36 Test Item Value Reference Range Interpretation Comments POC-GLUCOSE METER 120 mg/dL 70-110 H : TESTED A T [facility] 6720 (BEAKER) (test code = [facility], 1538) 23[address]: Director Of Sports Medicine/Techni federico ID = [id number] for Sonali Walters POCT-GLUCOSE [id number] 12:33:49 Test Item Value Reference Range Interpretation Comments POC-GLUCOSE METER 87 mg/dL 70-110 : TESTED A T [facility] 6720 (BEAKER) (test code = [facility], 1538) 54[address]: Director Of Sports Medicine/Techni federico ID = [id number] for Kera Harrisonia POCT-GLUCOSE [id number] 06:25:50 Test Item Value Reference Range Interpretation Comments POC-GLUCOSE METER 108 mg/dL 70-110 : TESTED A T [facility] 6720 (BEAKER) (test code = [facility], 1538) 57288: Director Of Sports Medicine/Techni federico ID = [id number] for HANG ALMAZAN [id number] 04:51:06 Test Item Value Reference Range Interpretation Comments MAGNESIUM (BEAKER) (test code = 1.6 mg/dL 1.6-2.6 627) Director Of Sports Medicine ID - MAXWELL [id number] 04:51:06 Test Item Value Reference Range Interpretation Comments PHOSPHORUS (BEAKER) (test code = 4.4 mg/dL 2.3-4.7 604) Director Of Sports Medicine ID - MAXWELL BBASIC METABOLIC [id number] 04:51:05 Test Item Value Reference Range Interpretation Comments SODIUM (BEAKER) 135 meq/L 136-145 L (test code = 381) POTASSIUM 4.3 meq/L 3.5-5.1 (BEAKER) (test code = 379) CHLORIDE (BEAKER) 101 meq/L 98-107 (test code = 382) CO2 (BEAKER) 25 meq/L 22-29 (test code = 355) BLOOD UREA 14 mg/dL 7-21 NITROGEN (BEAKER) (test code = 354) CREATININE 0.66 mg/dL 0.57-1.25 (BEAKER) (test code = 358) GLUCOSE RANDOM 117 mg/dL 70-105 H (BEAKER) (test code = 652) CALCIUM (BEAKER) 9.3 mg/dL 8.4-10.2 (test code = 697) EGFR (BEAKER) 114 Interpretatio n of eGFR (test code = mL/min/1.73 values Stage De scription 1092) sq m Result G1 Ella l or high >=90 G2 Mildly decreased 60-89 G3a Mildl y to moderately 45-5 9 G3b Moderately to s everely 30-44 G4 Severl y decreased 15-29 G5 Kidney failure <15Reported eGF R is based on the CKD-EPI 2020 equation that d oes not use a race coefficientEsti mated GFR is not as accur ate as Creatinine Clementine chance in predicting glom erular filtration rate . Estimated GFR is not appl icable for dialysis patien ts Director Of Sports Medicine ID - MAXWELL BPOCT-GLUCOSE [id number] 00:05:50 Test Item Value Reference Range Interpretation Comments POC-GLUCOSE METER 118 mg/dL 70-110 H : TESTED A T [facility] 6720 (BEAKER) (test code = [facility], 1538) 0[address]: Director Of Sports Medicine/Techni federico ID = [id number] for HANG ALMAZAN POCT-GLUCOSE [id number] 16:40:48 Test Item Value Reference Range Interpretation Comments POC-GLUCOSE METER 99 mg/dL 70-110 : TESTED A T [facility] 6720 (BEAKER) (test code = [facility], 1538) 47[address]: Director Of Sports Medicine/Techni federico ID = [id number] for Rosaline Deleon POCT-GLUCOSE [id number] 12:40:11 Test Item Value Reference Range Interpretation Comments POC-GLUCOSE METER 122 mg/dL 70-110 H : TESTED A T [facility] 6720 (BEAKER) (test code = [facility] William [facility], 1538) [address]: Director Of Sports Medicine/Techni federico ID = [id number] for Sonali Walters POCT-GLUCOSE [id number] 06:26:58 Test Item Value Reference Range Interpretation Comments POC-GLUCOSE METER 93 mg/dL 70-110 : TESTED A T [facility] 6720 (BEAKER) (test code = [facility], 1538) [address]: Director Of Sports Medicine/Techni federico ID = [id number] for SEMI EN, HANG [id number] 04:39:11 Test Item Value Reference Range Interpretation Comments MAGNESIUM (BEAKER) (test code = 1.7 mg/dL 1.6-2.6 627) Director Of Sports Medicine ID - [id number] 04:39:11 Test Item Value Reference Range Interpretation Comments PHOSPHORUS (BEAKER) (test code = 4.6 mg/dL 2.3-4.7 604) Director Of Sports Medicine ID - MARCOBASIC METABOLIC [id number] 04:39:10 Test Item Value Reference Range Interpretation Comments SODIUM (BEAKER) 136 meq/L 136-145 (test code = 381) POTASSIUM 4.0 meq/L 3.5-5.1 (BEAKER) (test code = 379) CHLORIDE (BEAKER) 101 meq/L 98-107 (test code = 382) CO2 (BEAKER) 25 meq/L 22-29 (test code = 355) BLOOD UREA 8 mg/dL 7-21 NITROGEN (BEAKER) (test code = 354) CREATININE 0.60 mg/dL 0.57-1.25 (BEAKER) (test code = 358) GLUCOSE RANDOM 93 mg/dL 70-105 (BEAKER) (test code = 652) CALCIUM (BEAKER) 9.8 mg/dL 8.4-10.2 (test code = 697) EGFR (BEAKER) 116 Interpretatio n of eGFR (test code = mL/min/1.73 values Stage De scription 1092) sq m Result G1 Ella l or high >=90 G2 Mildly decreased 60-89 G3a Mildl y to moderately 45-5 9 G3b Moderately to s everely 30-44 G4 Severl y decreased 15-29 G5 Kidney failure <15Reported eGF R is based on the CKD-EPI 2021 equation that d oes not use a race coefficientEsti mated GFR is not as accur ate as Creatinine Clementine robson in predicting glom erular filtration rate . Estimated GFR is not appl icable for dialysis patien ts Director Of Sports Medicine ID - MARCOBASIC METABOLIC [id number] 06:51:27 Test Item Value Reference Range Interpretation Comments SODIUM (BEAKER) 138 meq/L 136-145 (test code = 381) POTASSIUM 4.5 meq/L 3.5-5.1 (BEAKER) (test code = 379) CHLORIDE (BEAKER) 103 meq/L 98-107 (test code = 382) CO2 (BEAKER) 24 meq/L 22-29 (test code = 355) BLOOD UREA 10 mg/dL 7-21 NITROGEN (BEAKER) (test code = 354) CREATININE 0.66 mg/dL 0.57-1.25 (BEAKER) (test code = 358) GLUCOSE RANDOM 98 mg/dL 70-105 (BEAKER) (test code = 652) CALCIUM (BEAKER) 9.4 mg/dL 8.4-10.2 (test code = 697) EGFR (BEAKER) 114 Interpretatio n of eGFR (test code = mL/min/1.73 values Stage De scription 1092) sq m Result G1 Norm al or high >=90 G2 Mildly decreased 60-89 G3a Mildl y to moderately 45-5 9 G3b Moderately to s everely 30-44 G4 Severl y decreased 15-29 G5 Kidne y failure <15Reported eGF R is based on the CKD-EPI 2021 equation that d oes not use a race coefficientEsti mated GFR is not as accur ate as Creatinine Clementine robson in predicting glom erular filtration rate . Estimated GFR is not appl icable for dialysis patien ts Director Of Sports Medicine ID - [id number] 06:51:27 Test Item Value Reference Range Interpretation Comments MAGNESIUM (BEAKER) (test code = 1.6 mg/dL 1.6-2.6 627) Director Of Sports Medicine ID - [id number] 06:51:27 Test Item Value Reference Range Interpretation Comments PHOSPHORUS (BEAKER) (test code = 5.1 mg/dL 2.3-4.7 H 604) Director Of Sports Medicine ID - MARCOPOC-Glucose [id number] 06:10:39 Test Item Value Reference Range Interpretation Comments POC-Glucose Meter (test 117 mg/dL 70-110 H : TE STED AT [facility] code = 1538) 6720 [facility], [address]: Director Of Sports Medicine/Techni federico ID = [id number] for DARCI MONTEMAYOR Lab Interpretation (test Abnormal code = 48503-0) [facility] [id number] 06:10:39 Test Item Value Reference Range Interpretation Comments POC-GLUCOSE METER 117 mg/dL 70-110 H : TESTED A T [facility] 6720 (BEAKER) (test code = [facility], 1538) 06[address]: Director Of Sports Medicine/Techni federico ID = [id number] for BELKIS FALCON POCT-GLUCOSE [id number] 00:21:24 Test Item Value Reference Range Interpretation Comments POC-GLUCOSE METER 133 mg/dL 70-110 H : TESTED A T [facility] 6720 (BEAKER) (test code = [facility], 1538) 098[address]: Director Of Sports Medicine/Techni federico ID = [id number] for BELKIS FALCON POCT-GLUCOSE [id number] 18:01:01 Test Item Value Reference Range Interpretation Comments POC-GLUCOSE METER 131 mg/dL 70-110 H : TESTED A T [facility] 6720 (BEAKER) (test code = [facility], 1538) 73298: Director Of Sports Medicine/Techni federico ID = [id number] for Jass Cramer POC-Glucose [id number] 11:46:52 Test Item Value Reference Range Interpretation Comments POC-Glucose Meter (test 86 mg/dL 70-110 : TE STED AT [facility] code = 1538) 6720 [facility], 770 30: Director Of Sports Medicine/Techni federico ID = [id number] for Micha Gagnon Lab Interpretation (test Normal code = 36308-1) [facility] [id number] 11:46:52 Test Item Value Reference Range Interpretation Comments POC-GLUCOSE METER 86 mg/dL 70-110 : TESTED A T [facility] 6720 (BEAKER) (test code = [place], 1538) [address]: Director Of Sports Medicine/Techni federico ID = [id number] for Jass Rodriguez POCT-GLUCOSE [id number] 06:32:46 Test Item Value Reference Range Interpretation Comments POC-GLUCOSE METER 110 mg/dL 70-110 : TESTED A T [facility] 6720 (BEAKER) (test code = [place], 1538) 15[address]: Director Of Sports Medicine/Techni federico ID = [id number] for HANG ALMAZAN BASIC METABOLIC [id number] 05:38:35 Test Item Value Reference Range Interpretation Comments SODIUM (BEAKER) 136 meq/L 136-145 (test code = 381) POTASSIUM 4.1 meq/L 3.5-5.1 (BEAKER) (test code = 379) CHLORIDE (BEAKER) 101 meq/L 98-107 (test code = 382) CO2 (BEAKER) 26 meq/L 22-29 (test code = 355) BLOOD UREA 7 mg/dL 7-21 NITROGEN (BEAKER) (test code = 354) CREATININE 0.65 mg/dL 0.57-1.25 (BEAKER) (test code = 358) GLUCOSE RANDOM 114 mg/dL 70-105 H (BEAKER) (test code = 652) CALCIUM (BEAKER) 9.6 mg/dL 8.4-10.2 (test code = 697) EGFR (BEAKER) 114 Interpretatio n of eGFR (test code = mL/min/1.73 values Stage De scription 1092) sq m Result G1 Ella l or high >=90 G2 Mildly decreased 60-89 G3a Mildl y to moderately 45-5 9 G3b Moderately to s everely 30-44 G4 Severl y decreased 15-29 G5 Kidney failure <15Reported eGF R is based on the CKD-EPI 2021 equation that d oes not use a race coefficientEsti mated GFR is not as accur ate as Creatinine Clementine robson in predicting glom erular filtration rate . Estimated GFR is not appl icable for dialysis patien ts Director Of Sports Medicine ID - [id number] 05:38:35 Test Item Value Reference Range Interpretation Comments MAGNESIUM (BEAKER) (test code = 1.8 mg/dL 1.6-2.6 627) Director Of Sports Medicine ID - [id number] 05:38:35 Test Item Value Reference Range Interpretation Comments PHOSPHORUS (BEAKER) (test code = 3.4 mg/dL 2.3-4.7 604) Director Of Sports Medicine ID - DBCBC W/PLT COUNT & AUTO [id number] 05:14:51 Test Item Value Reference Range Interpretation Comments WHITE BLOOD CELL COUNT (BEAKER) 9.1 K/ L 3.5-10.5 (test code = 775) RED BLOOD CELL COUNT (BEAKER) 4.47 M/ L 3.93-5.22 (test code = 761) HEMOGLOBIN (BEAKER) (test code = 13.0 GM/DL 11.2-15.7 410) HEMATOCRIT (BEAKER) (test code = 40.6 % 34.1-44.9 411) MEAN CORPUSCULAR VOLUME (BEAKER) 91 fL 79-95 (test code = 753) MEAN CORPUSCULAR HEMOGLOBIN 29.1 pg 25.6-32.2 (BEAKER) (test code = 751) MEAN CORPUSCULAR HEMOGLOBIN CONC 32.0 GM/DL 32.2-35.5 L (BEAKER) (test code = 752) RED CELL DISTRIBUTION WIDTH 17.1 % 11.7-14.4 H (BEAKER) (test code = 412) PLATELET COUNT (BEAKER) (test 240 K/CU MM 150-450 code = 756) MEAN PLATELET VOLUME (BEAKER) 10.0 fL 9.4-12.3 (test code = 754) NUCLEATED RED BLOOD CELLS 0 /100 WBC 0-0 (BEAKER) (test code = 413) NEUTROPHILS RELATIVE PERCENT 67 % (BEAKER) (test code = 429) LYMPHOCYTES RELATIVE PERCENT 19 % (BEAKER) (test code = 430) MONOCYTES RELATIVE PERCENT 10 % (BEAKER) (test code = 431) EOSINOPHILS RELATIVE PERCENT 2 % (BEAKER) (test code = 432) BASOPHILS RELATIVE PERCENT 1 % (BEAKER) (test code = 437) NEUTROPHILS ABSOLUTE COUNT 6.12 K/ L 1.56-6.13 (BEAKER) (test code = 670) LYMPHOCYTES ABSOLUTE COUNT 1.75 K/ L 1.18-3.74 (BEAKER) (test code = 414) MONOCYTES ABSOLUTE COUNT (BEAKER) 0.90 K/ L 0.24-0.36 H (test code = 415) EOSINOPHILS ABSOLUTE COUNT 0.20 K/ L 0.04-0.36 (BEAKER) (test code = 416) BASOPHILS ABSOLUTE COUNT (BEAKER) 0.05 K/ L 0.01-0.08 (test code = 417) IMMATURE GRANULOCYTES-RELATIVE 0.70 % 0.00-1.00 PERCENT (BEAKER) (test code = 2801) POCT-GLUCOSE [id number] 23:49:04 Test Item Value Reference Range Interpretation Comments POC-GLUCOSE METER 97 mg/dL 70-110 : TESTED A T [facility] 6720 (BEAKER) (test code = [facility], 1538) 56571: Director Of Sports Medicine/Techni federico ID = [id number] for HANG ZUNIGA POCT-GLUCOSE [id number] 18:03:27 Test Item Value Reference Range Interpretation Comments POC-GLUCOSE METER 96 mg/dL 70-110 : TESTED A T [facility] 6720 (BEAKER) (test code = [facility], 1538) 963[address]: Director Of Sports Medicine/Techni federico ID = [id number] for JENNI ESTRADA BELKIS POCT-GLUCOSE [id number] 12:11:29 Test Item Value Reference Range Interpretation Comments POC-GLUCOSE METER 95 mg/dL 70-110 : TESTED A T [facility] 6720 (BEAKER) (test code = [facility], 1538) 745[address]: Director Of Sports Medicine/Techni federico ID = [id number] for JENNI SOSAN, BELKIS POCT , [id number] 07:31:00 Test Item Value Reference Range Interpretation Comments Test Urine, POC (test Negative code = 2803842) Control line present?, POC (test Yes code = 7376211) Background clear?, POC (test code Yes = 5795131) UPT Cassette Lot #, POC (test code 057865 = 3161741) UPT Cassette Expiration Date, POC 03/19/2024 (test code = 1613489) [facility] [id number] 07:31:00 Test Item Value Reference Range Interpretation Comments Test Urine, POC (test Negative code = 8160262) Control line present?, POC (test Yes code = 0452904) Background clear?, POC (test code Yes = 1723380) UPT Cassette Lot #, POC (test code 086701 = 8107570) UPT Cassette Expiration Date, POC 03/19/2024 (test code = 4182455) [facility] , [id number] 07:31:00 Test Item Value Reference Range Interpretation Comments Test Urine, POC (test Negative code = 6028839) Control line present?, POC (test Yes code = 5013754) Background clear?, POC (test code Yes = 3795372) UPT Cassette Lot #, POC (test code 077878 = 7204989) UPT Cassette Expiration Date, POC 03/19/2024 (test code = 1874531) [facility] , [id number] 07:31:00 Test Item Value Reference Range Interpretation Comments Test Urine, POC (test Negative code = 9203789) Control line present?, POC (test Yes code = 9093469) Background clear?, POC (test code Yes = 3588018) UPT Cassette Lot #, POC (test code 020417 = 1071430) UPT Cassette Expiration Date, POC 03/19/2024 (test code = 8838262) [facility]-Glucose [id number] 06:42:59 Test Item Value Reference Range Interpretation Comments POC-Glucose Meter (test 95 mg/dL 70-110 : TE STED AT [facility] code = 1538) 6720 [facility], 770 30: Director Of Sports Medicine/Techni federico ID = [id number] for Shayy Olivarez Lab Interpretation (test Normal code = 83962-5) [facility]-GLUCOSE [id number] 06:42:59 Test Item Value Reference Range Interpretation Comments POC-GLUCOSE METER 95 mg/dL 70-110 : TESTED A T [facility] 6720 (BEAKER) (test code = PAVAN [facility], 1538) 84[address]: Director Of Sports Medicine/Techni federico ID = [id number] for Shayy Costello od [id number] 04:49:08 Test Item Value Reference Range Interpretation Comments PHOSPHORUS (BEAKER) (test code = 4.0 mg/dL 2.3-4.7 604) Director Of Sports Medicine ID - ADMINBASIC METABOLIC [id number] 04:49:07 Test Item Value Reference Range Interpretation Comments SODIUM (BEAKER) 137 meq/L 136-145 (test code = 381) POTASSIUM 3.9 meq/L 3.5-5.1 (BEAKER) (test code = 379) CHLORIDE (BEAKER) 102 meq/L 98-107 (test code = 382) CO2 (BEAKER) 27 meq/L 22-29 (test code = 355) BLOOD UREA 11 mg/dL 7-21 NITROGEN (BEAKER) (test code = 354) CREATININE 0.62 mg/dL 0.57-1.25 (BEAKER) (test code = 358) GLUCOSE RANDOM 98 mg/dL 70-105 (BEAKER) (test code = 652) CALCIUM (BEAKER) 9.2 mg/dL 8.4-10.2 (test code = 697) EGFR (BEAKER) 115 Interpretatio n of eGFR (test code = mL/min/1.73 values Stage De scription 1092) sq m Result G1 Ella l or high >=90 G2 Mildly decreased 60-89 G3a Mildl y to moderately 45-5 9 G3b Moderately to s everely 30-44 G4 Severl y decreased 15-29 G5 Kidney failure <15Reported eGF R is based on the CKD-EPI 2020 equation that d oes not use a race coefficientEsti mated GFR is not as accur ate as Creatinine Clementine chance in predicting glom erular filtration rate . Estimated GFR is not appl icable for dialysis patien ts Director Of Sports Medicine ID - [id number] 04:49:07 Test Item Value Reference Range Interpretation Comments MAGNESIUM (BEAKER) (test code = 1.9 mg/dL 1.6-2.6 627) Director Of Sports Medicine ID - ADMINCBC W/PLT COUNT & AUTO [id number] 04:23:38 Test Item Value Reference Range Interpretation Comments WHITE BLOOD CELL COUNT (BEAKER) 5.6 K/ L 3.5-10.5 (test code = 775) RED BLOOD CELL COUNT (BEAKER) 3.99 M/ L 3.93-5.22 (test code = 761) HEMOGLOBIN (BEAKER) (test code = 11.9 GM/DL 11.2-15.7 410) HEMATOCRIT (BEAKER) (test code = 35.0 % 34.1-44.9 411) MEAN CORPUSCULAR VOLUME (BEAKER) 88 fL 79-95 (test code = 753) MEAN CORPUSCULAR HEMOGLOBIN 29.8 pg 25.6-32.2 (BEAKER) (test code = 751) MEAN CORPUSCULAR HEMOGLOBIN CONC 34.0 GM/DL 32.2-35.5 (BEAKER) (test code = 752) RED CELL DISTRIBUTION WIDTH 17.0 % 11.7-14.4 H (BEAKER) (test code = 412) PLATELET COUNT (BEAKER) (test 219 K/CU MM 150-450 code = 756) MEAN PLATELET VOLUME (BEAKER) 10.3 fL 9.4-12.3 (test code = 754) NUCLEATED RED BLOOD CELLS 0 /100 WBC 0-0 (BEAKER) (test code = 413) NEUTROPHILS RELATIVE PERCENT 52 % (BEAKER) (test code = 429) LYMPHOCYTES RELATIVE PERCENT 30 % (BEAKER) (test code = 430) MONOCYTES RELATIVE PERCENT 12 % (BEAKER) (test code = 431) EOSINOPHILS RELATIVE PERCENT 6 % (BEAKER) (test code = 432) BASOPHILS RELATIVE PERCENT 1 % (BEAKER) (test code = 437) NEUTROPHILS ABSOLUTE COUNT 2.92 K/ L 1.56-6.13 (BEAKER) (test code = 670) LYMPHOCYTES ABSOLUTE COUNT 1.66 K/ L 1.18-3.74 (BEAKER) (test code = 414) MONOCYTES ABSOLUTE COUNT (BEAKER) 0.65 K/ L 0.24-0.36 H (test code = 415) EOSINOPHILS ABSOLUTE COUNT 0.32 K/ L 0.04-0.36 (BEAKER) (test code = 416) BASOPHILS ABSOLUTE COUNT (BEAKER) 0.05 K/ L 0.01-0.08 (test code = 417) IMMATURE GRANULOCYTES-RELATIVE 0.20 % 0.00-1.00 PERCENT (BEAKER) (test code = 2801) POCT-GLUCOSE [id number] 23:51:35 Test Item Value Reference Range Interpretation Comments POC-GLUCOSE METER 115 mg/dL 70-110 H : TESTED Facundo Dejesus [facility] 6720 (BEAKER) (test code = [place], 1538) [address]: Director Of Sports Medicine/Techni federico ID = [id number] for Shayy Bahena POCT-GLUCOSE [id number] 18:02:27 Test Item Value Reference Range Interpretation Comments POC-GLUCOSE METER 97 mg/dL 70-110 : TESTED A T [facility] 6720 (BEAKER) (test code = [facility], 1538) 6[address]: Director Of Sports Medicine/Techni federico ID = [id number] for JENNI PSON, BELKIS POCT-GLUCOSE [id number] 12:21:50 Test Item Value Reference Range Interpretation Comments POC-GLUCOSE METER 82 mg/dL 70-110 : TESTED A T [facility] 6720 (BEAKER) (test code = [facility], 1538) 26468: Director Of Sports Medicine/Techni federico ID = [id number] for JENNI PSON, BELKIS POCT-GLUCOSE [id number] 06:39:31 Test Item Value Reference Range Interpretation Comments POC-GLUCOSE METER 82 mg/dL 70-110 : TESTED A T [facility] 6720 (BEAKER) (test code = [facility], [facility]) [address]: Director Of Sports Medicine/Techni federico ID = [id number] for Shayy Costello od [id number] 05:41:53 Test Item Value Reference Range Interpretation Comments MAGNESIUM (BEAKER) (test code = 1.9 mg/dL 1.6-2.6 627) Director Of Sports Medicine ID - [id number] 05:41:53 Test Item Value Reference Range Interpretation Comments PHOSPHORUS (BEAKER) (test code = 4.3 mg/dL 2.3-4.7 604) Director Of Sports Medicine ID - ADMINBASIC METABOLIC [id number] 05:41:52 Test Item Value Reference Range Interpretation Comments SODIUM (BEAKER) 135 meq/L 136-145 L (test code = 381) POTASSIUM 4.4 meq/L 3.5-5.1 (BEAKER) (test code = 379) CHLORIDE (BEAKER) 99 meq/L 98-107 (test code = 382) CO2 (BEAKER) 28 meq/L 22-29 (test code = 355) BLOOD UREA 10 mg/dL 7-21 NITROGEN (BEAKER) (test code = 354) CREATININE 0.70 mg/dL 0.57-1.25 (BEAKER) (test code = 358) GLUCOSE RANDOM 94 mg/dL 70-105 (BEAKER) (test code = 652) CALCIUM (BEAKER) 9.9 mg/dL 8.4-10.2 (test code = 697) EGFR (BEAKER) 112 Interpretatio n of eGFR (test code = mL/min/1.73 values Stage De scription 1092) sq m Result G1 Ella l or high >=90 G2 Mildly decreased 60-89 G3a Mild ly to moderately 45-5 9 G3b Moderately to s everely 30-44 G4 Severl y decreased 15-29 G5 Kidney failure <15Reported eGF R is based on the CKD-EPI 2020 equation that d oes not use a race coefficientEsti mated GFR is not as accur ate as Creatinine Clementine robson in predicting glom erular filtration rate . Estimated GFR is not appl icable for dialysis patien ts Director Of Sports Medicine ID - ADMINCBC W/PLT COUNT & AUTO [id number] 05:18:36 Test Item Value Reference Range Interpretation Comments WHITE BLOOD CELL COUNT (BEAKER) 6.2 K/ L 3.5-10.5 (test code = 775) RED BLOOD CELL COUNT (BEAKER) 4.61 M/ L 3.93-5.22 (test code = 761) HEMOGLOBIN (BEAKER) (test code = 13.1 GM/DL 11.2-15.7 410) HEMATOCRIT (BEAKER) (test code = 40.8 % 34.1-44.9 411) MEAN CORPUSCULAR VOLUME (BEAKER) 89 fL 79-95 (test code = 753) MEAN CORPUSCULAR HEMOGLOBIN 28.4 pg 25.6-32.2 (BEAKER) (test code = 751) MEAN CORPUSCULAR HEMOGLOBIN CONC 32.1 GM/DL 32.2-35.5 L (BEAKER) (test code = 752) RED CELL DISTRIBUTION WIDTH 17.1 % 11.7-14.4 H (BEAKER) (test code = 412) PLATELET COUNT (BEAKER) (test 247 K/CU MM 150-450 code = 756) MEAN PLATELET VOLUME (BEAKER) 10.0 fL 9.4-12.3 (test code = 754) NUCLEATED RED BLOOD CELLS 0 /100 WBC 0-0 (BEAKER) (test code = 413) NEUTROPHILS RELATIVE PERCENT 58 % (BEAKER) (test code = 429) LYMPHOCYTES RELATIVE PERCENT 24 % (BEAKER) (test code = 430) MONOCYTES RELATIVE PERCENT 12 % (BEAKER) (test code = 431) EOSINOPHILS RELATIVE PERCENT 5 % (BEAKER) (test code = 432) BASOPHILS RELATIVE PERCENT 1 % (BEAKER) (test code = 437) NEUTROPHILS ABSOLUTE COUNT 3.58 K/ L 1.56-6.13 (BEAKER) (test code = 670) LYMPHOCYTES ABSOLUTE COUNT 1.48 K/ L 1.18-3.74 (BEAKER) (test code = 414) MONOCYTES ABSOLUTE COUNT (BEAKER) 0.73 K/ L 0.24-0.36 H (test code = 415) EOSINOPHILS ABSOLUTE COUNT 0.31 K/ L 0.04-0.36 (BEAKER) (test code = 416) BASOPHILS ABSOLUTE COUNT (BEAKER) 0.05 K/ L 0.01-0.08 (test code = 417) IMMATURE GRANULOCYTES-RELATIVE 0.30 % 0.00-1.00 PERCENT (BEAKER) (test code = 2801) POCT-GLUCOSE [id number] 00:09:35 Test Item Value Reference Range Interpretation Comments POC-GLUCOSE METER 160 mg/dL 70-110 H : TESTED A T [facility] 6720 (BEAKER) (test code = [facility], 153) 8[address]: Director Of Sports Medicine/Techni federico ID = [id number] for Shayy Bahena POCT-GLUCOSE [id number] 17:21:07 Test Item Value Reference Range Interpretation Comments POC-GLUCOSE METER 75 mg/dL 70-110 : TESTED A T [facility] 6720 (BEAKER) (test code = [facility], 153) 58952: Director Of Sports Medicine/Techni federico ID = [id number] for Sonali Harrison Screen, [id number] 15:22:58 Test Item Value Reference Range Interpretation Comments Preg Test, Ur (test code = 2111-) Negative Negative Lab Interpretation (test code = Normal 84915-1) [facility] [id number] 15:22:58 Test Item Value Reference Range Interpretation Comments Preg Test, Ur (test code = 2111-1) Negative Negative Lab Interpretation (test code = Normal 47052-8) [facility] [id number] 15:22:58 Test Item Value Reference Range Interpretation Comments Preg Test, Ur (test code = 2112-1) Negative Negative Lab Interpretation (test code = Normal 17192-7) [facility], [id number] 15:22:58 Test Item Value Reference Range Interpretation Comments Preg Test, Ur (test code = 2112-1) Negative Negative Lab Interpretation (test code = Normal 33978-2) [facility] [id number] 15:22:58 Test Item Value Reference Range Interpretation Comments TEST URINE (BEAKER) (test Negative Negative code = 583) POCT-GLUCOSE [id number] 17:25:51 Test Item Value Reference Range Interpretation Comments POC-GLUCOSE METER 87 mg/dL 70-110 : TESTED A T [facility] 6720 (BEAKER) (test code = [facility], 1538) 47474: Director Of Sports Medicine/Techni federico ID = [id number] for JUDIT S, KEYAIRA POCT-GLUCOSE [id number] 12:49:55 Test Item Value Reference Range Interpretation Comments POC-GLUCOSE METER 93 mg/dL 70-110 : TESTED A T [facility] 6720 (BEAKER) (test code = [facility], 153) 80401: Director Of Sports Medicine/Techni federico ID = [id number] for JUDIT S, KEYAIRA COMPREHENSIVE METABOLIC [id number] 05:47:37 Test Item Value Reference Range Interpretation Comments TOTAL PROTEIN 6.7 gm/dL 6.0-8.3 (BEAKER) (test code = 770) ALBUMIN (BEAKER) 3.6 g/dL 3.5-5.0 (test code = 1145) ALKALINE 66 U/L 40-150 PHOSPHATASE (BEAKER) (test code = 346) BILIRUBIN TOTAL 0.6 mg/dL 0.2-1.2 (BEAKER) (test code = 377) SODIUM (BEAKER) 139 meq/L 136-145 (test code = 381) POTASSIUM (BEAKER) 3.9 meq/L 3.5-5.1 (test code = 379) CHLORIDE (BEAKER) 104 meq/L 98-107 (test code = 382) CO2 (BEAKER) (test 25 meq/L 22-29 code = 355) BLOOD UREA 7 mg/dL 7-21 NITROGEN (BEAKER) (test code = 354) CREATININE 0.61 mg/dL 0.57-1.25 (BEAKER) (test code = 358) GLUCOSE RANDOM 93 mg/dL 70-105 (BEAKER) (test code = 652) CALCIUM (BEAKER) 9.8 mg/dL 8.4-10.2 (test code = 697) AST (SGOT) 15 U/L 5-34 (BEAKER) (test code = 353) ALT (SGPT) 6 U/L 6-55 (BEAKER) (test code = 347) EGFR (BEAKER) 116 Interpretatio n of eGFR (test code = 1092) mL/min/1.[address] age Description sq m Result G1 Ella l or high >=90 G2 Mildly decreased 60-89 G3a Mildl y to moderately 45-5 9 G3b Moderately to s everely 30-44 G4 Severl y decreased 15-29 G5 Kidney failure <15Reported eGF R is based on the CKD-EPI 2021 equation that d oes not use a race coefficientEsti mated GFR is not as accur ate as Creatinine Clementine chance in predicting glom erular filtration rate . Estimated GFR is not appl icable for dialysis patien ts Director Of Sports Medicine ID - [id number] 05:41:52 Test Item Value Reference Range Interpretation Comments PREALBUMIN (BEAKER) (test code = 26 mg/dL 14-45 586) Director Of Sports Medicine ID - [id number] 05:34:03 Test Item Value Reference Range Interpretation Comments PARTIAL THROMBOPLASTIN TIME 35.5 seconds 22.5-36.0 (BEAKER) (test code = 760) PROTHROMBIN TIME/[id number] 05:33:23 Test Item Value Reference Range Interpretation Comments PROTIME (BEAKER) (test code = 13.1 seconds 11.9-14.2 759) INR (BEAKER) (test code = 370) 1.05 <=5.90 RECOMMENDED COUMADIN/WARFARIN INR THERAPY RANGESSTANDARD DOSE: 2.0 - 3.0 Includes: PROPHYLAXIS for venous thrombosis, systemic embolization; TREATMENT for venous thrombosis and/or pulmonary embolus.HIGH RISK: Target INR is 2.5-3.5 for patients with mechanical heart valves.CBC W/PLT COUNT & AUTO [id number] 05:25:30 Test Item Value Reference Range Interpretation Comments WHITE BLOOD CELL COUNT (BEAKER) 6.7 K/ L 3.5-10.5 (test code = 775) RED BLOOD CELL COUNT (BEAKER) 4.22 M/ L 3.93-5.22 (test code = 761) HEMOGLOBIN (BEAKER) (test code = 11.9 GM/DL 11.2-15.7 410) HEMATOCRIT (BEAKER) (test code = 37.6 % 34.1-44.9 411) MEAN CORPUSCULAR VOLUME (BEAKER) 89 fL 79-95 (test code = 753) MEAN CORPUSCULAR HEMOGLOBIN 28.2 pg 25.6-32.2 (BEAKER) (test code = 751) MEAN CORPUSCULAR HEMOGLOBIN CONC 31.6 GM/DL 32.2-35.5 L (BEAKER) (test code = 752) RED CELL DISTRIBUTION WIDTH 17.6 % 11.7-14.4 H (BEAKER) (test code = 412) PLATELET COUNT (BEAKER) (test 228 K/CU MM 150-450 code = 756) MEAN PLATELET VOLUME (BEAKER) 10.2 fL 9.4-12.3 (test code = 754) NUCLEATED RED BLOOD CELLS 0 /100 WBC 0-0 (BEAKER) (test code = 413) NEUTROPHILS RELATIVE PERCENT 58 % (BEAKER) (test code = 429) LYMPHOCYTES RELATIVE PERCENT 29 % (BEAKER) (test code = 430) MONOCYTES RELATIVE PERCENT 9 % (BEAKER) (test code = 431) EOSINOPHILS RELATIVE PERCENT 3 % (BEAKER) (test code = 432) BASOPHILS RELATIVE PERCENT 1 % (BEAKER) (test code = 437) NEUTROPHILS ABSOLUTE COUNT 3.86 K/ L 1.56-6.13 (BEAKER) (test code = 670) LYMPHOCYTES ABSOLUTE COUNT 1.91 K/ L 1.18-3.74 (BEAKER) (test code = 414) MONOCYTES ABSOLUTE COUNT (BEAKER) 0.62 K/ L 0.24-0.36 H (test code = 415) EOSINOPHILS ABSOLUTE COUNT 0.20 K/ L 0.04-0.36 (BEAKER) (test code = 416) BASOPHILS ABSOLUTE COUNT (BEAKER) 0.05 K/ L 0.01-0.08 (test code = 417) IMMATURE GRANULOCYTES-RELATIVE 0.30 % 0.00-1.00 PERCENT (BEAKER) (test code = 2801) HIV-1 ANTIGEN WITH HIV-1/2 [id number] 13:53:09 Test Item Value Reference Range Interpretation Comments HIV-1 ANTIGEN WITH HIV 1\\T\\2 Nonreactive Nonreactive ANTIBODY (2) (BEAKER) (test code = 2586) Director Of Sports Medicine ID - ADMINHEPATITIS C [id number] 13:53:08 Test Item Value Reference Range Interpretation Comments HEPATITIS C ANTIBODY (BEAKER) Nonreactive Nonreactive (test code = 367) Director Of Sports Medicine ID - [id number] 13:38:31 Test Item Value Reference Range Interpretation Comments PREALBUMIN (BEAKER) (test code = 30 mg/dL 1445 586) Director Of Sports Medicine ID - ADMINXR ABDOMEN/KUB 1 VIEW [id number] 19:34:44 [facility] 1980 Sex: FTECHNIQUE: XR ABDOMEN/KUB 1 VIEW PORTABLEINDICATION: DHT PLacement.COMPARISON: None.FINDINGS:Feeding tube tip projected over the gastric antrum. Nonobstructive bowelgas pattern. Lower pelvis is incompletely included on this examination.Supine radiographs are insensitive for detection of free intraperito nealair.IMPRESSION:Feeding tube tip projected over the gastric antrum.Electronically Signed By: Jarvis Welsh03/03/2023 19:36 CDTWorkstation Name: [id number] CHEST WITH IV [id number] 17:28:20 [facility] 1980 Sex: FCT of the chest with contrast:History: Malignant neoplasm of tongueMultidetector CT of the chest was performed following intravenousinjection of contrast. Dose reduction technique was employed usingautomated exposure control and adjustment of mA and/or kV according topatient size. Compared to 01/18/2023.There has been no significant interval change. The lungs are clear.Right upper lobe and left lower lobe calcified granulomas are againpresent. Granulomatous calcifications are also again present in themediastinum and right hilar region.There is no pleural or pericardial effusion. No lymphadenopathy isidentified. There is no bony abnormality noted.Images through the visualized upper abdomen appear within normal limits.IMPRESSION:No evidence of metastatic disease or significant abnormalityof the chest. 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 Intravenous contrast: 100mL of Isovue 300.Findings:Soft tissues:No abnormalities.Aerodigestive tract: There is an enhancing mass in the right tongue that measures 3.3 x 3.2 x3.5 cm and anteriorly crosses over to the left tongue. Metastaticenhancing lymph nodes in the bilateral level II (right II measures1.2cm) and enhancing and necrotic in the right III are noted. The leftlevel II node is homogenous and mildly enlarged (1.4cm) and may bepathologic given the size of the tumor. 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 Dose modulation, iterative reconstruction, and/or weight-based adjustment of the mA/kV was utilized to reducethe radiation dose to as low as reasonably achievable. INDICATION: Cancer of unknown primary, staging. COMPARISON: None. FINDINGS: LINES/TUBES: None. LUNGS AND AIRWAYS: There are a few blebs in the left lower lobe. A right lower lobe calcified granuloma measures 0.4 cm. A left lower lobe calcified granuloma measures 0.3 cm. PLEURA: The pleural spaces are clear. HEART AND MEDIASTINUM: The visualized thyroid gland is normal. No significant mediastinal, hilar, or axillary lymphadenopathy. There is a jasmina cified right perihilar lymph node which is most likely due to prior granulomatous disease. The heartand pericardium are within normal limits. SOFT TISSUES AND BONES: Unremarkable. UPPER ABDOMEN: Unremarkable. IMPRESSION: No malignancy is identified in the chest. Signed: Abdirashid Nicholas MDReport Verified Da te/Time: 01/20/2023 07:29:13 [id number] 05:13:48 Test Item Value Reference Range Interpretation Comments MAGNESIUM (BEAKER) (test code = 1.7 mg/dL 1.6-2.6 627) Director Of Sports Medicine ID - [id number] 05:13:48 Test Item Value Reference Range Interpretation Comments PHOSPHORUS (BEAKER) (test code = 4.1 mg/dL 2.3-4.7 604) Director Of Sports Medicine ID - MMBASIC METABOLIC [id number] 05:13:47 Test Item Value Reference Range Interpretation Comments SODIUM (BEAKER) 140 meq/L 136-145 (test code = 381) POTASSIUM 3.6 meq/L 3.5-5.1 (BEAKER) (test code = 379) CHLORIDE (BEAKER) 104 meq/L 98-107 (test code = 382) CO2 (BEAKER) 28 meq/L 22-29 (test code = 355) BLOOD UREA 5 mg/dL 7-21 L NITROGEN (BEAKER) (test code = 354) CREATININE 0.61 mg/dL 0.57-1.25 (BEAKER) (test code = 358) GLUCOSE RANDOM 89 mg/dL 70-105 (BEAKER) (test code = 652) CALCIUM (BEAKER) 9.3 mg/dL 8.4-10.2 (test code = 697) EGFR (BEAKER) 116 Interpretatio n of eGFR (test code = mL/min/1.73 values Stage De scription 1092) sq m Result G1 Ella l or high >=90 G2 Mildly decreased 60-89 G3a Mildl y to moderately 45-5 9 G3b Moderately to s everely 30-44 G4 Severl y decreased 15-29 G5 Kidney failure <15Reported eGF R is based on the CKD-EPI 2020 equation that d oes not use a race coefficientEsti mated GFR is not as accur ate as Creatinine Clementine robson in predicting glom erular filtration rate . Estimated GFR is not appl icable for dialysis patien ts Director Of Sports Medicine ID - MMBASI METABOLIC [id number] 06:42:56 Test Item Value Reference Range Interpretation Comments SODIUM (BEAKER) 138 meq/L 136-145 (test code = 381) POTASSIUM 3.5 meq/L 3.5-5.1 (BEAKER) (test code = 379) CHLORIDE (BEAKER) 104 meq/L 98-107 (test code = 382) CO2 (BEAKER) 24 meq/L 22-29 (test code = 355) BLOOD UREA 6 mg/dL 7-21 L NITROGEN (BEAKER) (test code = 354) CREATININE 0.61 mg/dL 0.57-1.25 (BEAKER) (test code = 358) GLUCOSE RANDOM 87 mg/dL 70-105 (BEAKER) (test code = 652) CALCIUM (BEAKER) 9.0 mg/dL 8.4-10.2 (test code = 697) EGFR (BEAKER) 116 Interpretatio n of eGFR (test code = mL/min/1.73 values Stage De scription 1092) sq m Result G1 Ella l or high >=90 G2 Mildly decreased 60-89 G3a Mildl y to moderately 45-5 9 G3b Moderately to s everely 30-44 G4 Severl y decreased 15-29 G5 Kidney failure <15Reported eGF R is based on the CKD-EPI 2020 equation that d oes not use a race coefficientEsti mated GFR is not as accur ate as Creatinine Clementine robson in predicting glom erular filtration rate . Estimated GFR is not appl icable for dialysis patien ts Director Of Sports Medicine ID - [id number] 06:42:56 Test Item Value Reference Range Interpretation Comments MAGNESIUM (BEAKER) (test code = 1.8 mg/dL 1.6-2.6 627) Director Of Sports Medicine ID - [id number] 06:42:56 Test Item Value Reference Range Interpretation Comments PHOSPHORUS (BEAKER) (test code = 4.0 mg/dL 2.3-4.7 604) Director Of Sports Medicine ID - ADMINVITAMIN [id number] 06:39:31 Test Item Value Reference Range Interpretation Comments VITAMIN B12 (BEAKER) (test code = 341 pg/mL 213-816 774) Director Of Sports Medicine ID - ADMINIRON, TIBC, % SAT. (WITHOUT FERRITIN)2023-01-19 06:11:34 Test Item Value Reference Range Interpretation Comments IRON (BEAKER) (test code = 547) 22.0 ug/dL 40.0-160.0 L TOTAL IRON BINDING CAPACITY 394 ug/dL 250-450 (BEAKER) (test code = 769) IRON % SATURATION (2) (BEAKER) 6 % 20-55 L (test code = 2590) Director Of Sports Medicine ID - [id number] 06:40:41 Test Item Value Reference Range Interpretation Comments MAGNESIUM (BEAKER) 1.5 mg/dL 1.6-2.6 L Specimen slightly (test code = 627) hemolyzed Director Of Sports Medicine ID - SARAH [id number] 06:40:41 Test Item Value Reference Range Interpretation Comments PHOSPHORUS (BEAKER) 3.6 mg/dL 2.3-4.7 Specimen slightly (test code = 604) hemolyzed Director Of Sports Medicine ID - SARAH WCOMPREHENSIVE METABOLIC [id number] 06:40:41 Test Item Value Reference Range Interpretation Comments TOTAL PROTEIN 6.7 gm/dL 6.0-8.3 Specimen sligh tly (BEAKER) (test hemolyzed code = 770) ALBUMIN (BEAKER) 3.5 g/dL 3.5-5.0 Specimen sl ightly (test code = 1145) hemolyzed ALKALINE 67 U/L 40-150 PHOSPHATASE (BEAKER) (test code = 346) BILIRUBIN TOTAL 0.8 mg/dL 0.2-1.2 Specimen sli ghtly (BEAKER) (test hemolyzed code = 377) SODIUM (BEAKER) 136 meq/L 136-145 (test code = 381) POTASSIUM (BEAKER) 3.7 meq/L 3.5-5.1 Specimen slightly (test code = 379) hemolyzed CHLORIDE (BEAKER) 105 meq/L 98-107 (test code = 382) CO2 (BEAKER) (test 22 meq/L 22-29 code = 355) BLOOD UREA 4 mg/dL 7-21 L NITROGEN (BEAKER) (test code = 354) CREATININE 0.55 mg/dL 0.57-1.25 L Specimen slight ly (BEAKER) (test hemolyzed code = 358) GLUCOSE RANDOM 76 mg/dL 70-105 (BEAKER) (test code = 652) CALCIUM (BEAKER) 8.9 mg/dL 8.4-10.2 (test code = 697) AST (SGOT) 19 U/L 5-34 Specimen slight ly (BEAKER) (test hemolyzed code = 353) ALT (SGPT) 6 U/L 6-55 Specimen slight ly (BEAKER) (test hemolyzed code = 347) EGFR (BEAKER) 119 Interpretatio n of eGFR (test code = 1092) mL/min/1.[address] age Description sq m Result G1 Ella l or high >=90 G2 Mildly decreased 60-89 G3a Mildl y to moderately 45-5 9 G3b Moderately to s everely 30-44 G4 Severl y decreased 15-29 G5 Kidney failure <15Reported eGF R is based on the CKD-EPI 1 equation that d oes not use a race coefficientEsti mated GFR is not as accur ate as Creatinine Clementine chance in predicting glom erular filtration rate . Estimated GFR is not appl icable for dialysis patien ts Director Of Sports Medicine LARON - SARAH WCBC W/PLT COUNT & AUTO [id number] 05:43:39 Test Item Value Reference Range Interpretation Comments WHITE BLOOD CELL COUNT (BEAKER) 6.8 K/ L 3.5-10.5 (test code = 775) RED BLOOD CELL COUNT (BEAKER) 3.96 M/ L 3.93-5.22 (test code = 761) HEMOGLOBIN (BEAKER) (test code = 10.6 GM/DL 11.2-15.7 L 410) HEMATOCRIT (BEAKER) (test code = 32.5 % 34.1-44.9 L 411) MEAN CORPUSCULAR VOLUME (BEAKER) 82 fL 79-95 (test code = 753) MEAN CORPUSCULAR HEMOGLOBIN 26.8 pg 25.6-32.2 (BEAKER) (test code = 751) MEAN CORPUSCULAR HEMOGLOBIN CONC 32.6 GM/DL 32.2-35.5 (BEAKER) (test code = 752) RED CELL DISTRIBUTION WIDTH 16.0 % 11.7-14.4 H (BEAKER) (test code = 412) PLATELET COUNT (BEAKER) (test 328 K/CU MM 150-450 code = 756) MEAN PLATELET VOLUME (BEAKER) 9.7 fL 9.4-12.3 (test code = 754) NUCLEATED RED BLOOD CELLS 0 /100 WBC 0-0 (BEAKER) (test code = 413) NEUTROPHILS RELATIVE PERCENT 67 % (BEAKER) (test code = 429) LYMPHOCYTES RELATIVE PERCENT 18 % (BEAKER) (test code = 430) MONOCYTES RELATIVE PERCENT 11 % (BEAKER) (test code = 431) EOSINOPHILS RELATIVE PERCENT 3 % (BEAKER) (test code = 432) BASOPHILS RELATIVE PERCENT 1 % (BEAKER) (test code = 437) NEUTROPHILS ABSOLUTE COUNT 4.54 K/ L 1.56-6.13 (BEAKER) (test code = 670) LYMPHOCYTES ABSOLUTE COUNT 1.26 K/ L 1.18-3.74 (BEAKER) (test code = 414) MONOCYTES ABSOLUTE COUNT (BEAKER) 0.76 K/ L 0.24-0.36 H (test code = 415) EOSINOPHILS ABSOLUTE COUNT 0.20 K/ L 0.04-0.36 (BEAKER) (test code = 416) BASOPHILS ABSOLUTE COUNT (BEAKER) 0.05 K/ L 0.01-0.08 (test code = 417) IMMATURE GRANULOCYTES-RELATIVE 0.30 % 0.00-1.00 PERCENT (BEAKER) (test code = 2801) Ethanol [id number] 02:25:00 Test Item Value Reference Range Interpretation Comments Ethanol (test code 176 mg/dL The pharm acological = ETOH) response to blo od alcohol levels mayvary from individual to i ndividual. The fatal ginna ntrationhas been reported t o be >400mg/dL. Complete Blood Count Auto [id number] 22:56:00 Test Item Value Reference Range Interpretation [...] code = NRBCP) 0 % Comprehensive Metabolic [id number] 22:56:00 Test Item Value Reference Range Interpretation [...] 106 U/L 46-116 N = ALP) Ethanol [id number] 22:56:00 Test Item Value Reference Range Interpretation Comments Ethanol (test code 242 mg/dL The pharm acological = ETOH) response to blo od alcohol levels mayvary from individual to i ndividual. The fatal ginna ntrationhas been reported t o be >400mg/dL. Manual Differential, [id number] 22:56:00 Test Item Value Reference Range Interpretation [...] Fema les (Age >41) 1. 8-10.1 mIU/mL Coronavirus PCR, COVID19 [id number] 22:52:00 Test Item Value Reference Range Interpretation Comments Coronavirus PCR, For use under Emergency COVID19 Rapid (test Use Authorization (EUA) code = SARSCOV2) only. Coronavirus PCR, Reference Range: COVID19 Rapid (test Negative code = QCGHVSX10.1) SARS-CoV-2 PCR Result: Negative by RT-PCR (test code = SARS-CoV-2 PCR Result:) COVID-19 Status: AsymptomaticUA, Urinalysis Rflx Cult/[id number] 22:52:00 Test Item Value Reference Range Interpretation Comments Color,Urine (test code = UCOL) Yellow Yellow Clarity,Urine (test code = Clear Clear UCLAR) Ph, Urine (test code = UPH) 6.0 5.0-9.0 N Specific [place],Urine (test 1.020 1.005-1.030 N code = USG) [...] A code = ULEU) UF REFLEXUF REFLEXUrine [id number] 22:52:00 Test Item Value Reference Range Interpretation Comments RBC,Urine (test code = URBCUF) 0-2 /HPF 0-2 WBC,Urine (test code = UWBCUF) 0-5 /HPF 0-5 Epithelial Cell,Urine (test 0-5 /HPF 0-5 code = UECUF) Casts,Urine (test code = 0-5 /LPF None Seen UCASTUF) Bacteria,Urine (test code = None Seen /hpf None Seen UBACTUF) UF REFLEXUF REFLEXDrug Screen,[id number] 22:52:00 Test Item Value Reference Range Interpretation [...]
[2023-03-29] MEDS ORDERED: FENTANYL CITR 100 MCG/2 ML ONE ×2 (05:20→07:27)
[2023-03-29 05:39] LABS: Absolute Lymphocytes (CBC) 2.6 K/uL (0.7-4.9); Hematocrit 36.6 % (36.0-45.0); Lymphocytes % 17.5 % (15.3-44.8); MPV 7.2 fL (7.6-11.3)
[2023-03-29 05:43] LABS: Protime INR 1.15
[2023-03-29 05:56] LABS: ALT/SGPT 20 U/L (13-56); AST/SGOT 13 U/L (15-37); Albumin 3.3 g/dL (3.4-5.0); Alkaline Phosphatase 100 U/L (45-117); BUN Blood Urea Nitrogen 14 mg/dL (7-18); Bicarbonate 24 mEq/L (21-32); Bilirubin Direct 0.1 mg/dL (0-0.2); Bilirubin Indirect, Calculated 0.2 mg/dL (0.2-0.8); Bilirubin Total 0.3 mg/dL (0.2-1.0); Glomerular Filtration Rate 97 ml/min (=/>90); Glucose Level 81 mg/dL (74-106); Magnesium 2.4 mg/dL (1.6-2.4); NT PRO-BNP 22 pg/mL (<125); Potassium 3.8 mEq/L (3.5-5.1); Protein, Total 9.2 g/dL (6.4-8.2); Sodium Level 133 mEq/L (136-145)
[2023-03-29 05:58] LABS: Troponin High Sensitivity < 3.0 pg/mL (<58.9)
--- NOTE | 2023-03-29 07:29 | RAD REPORT ---
EXAM DESCRIPTION: CT - Thorax W/ Con - 03/29/2023 6:51 am CLINICAL HISTORY: Chest pain/tongue carcinoma COMPARISON: 2020 TECHNIQUE: Computed axial tomography of the chest was obtained. 100 cc Isovue 300 was administered i ntravenously. All CT scans are performed using dose optimization technique as appropriate and may include automated exposure control or mA/KV adjustment according to patient size. FINDINGS: Calcified granuloma right lung. Remainder lungs are clear A tracheostomy tube in good position No mediastinal or hilar lymphadenopathy is seen. A pleural effusion is not present. A pericardial effusion is not seen. IMPRESSION: No acute abnormality is displayed
[2023-03-29] MEDS ORDERED: HYDROMORPHONE HCL 1 MG/ML INJ ONE (07:39)
--- NOTE | 2023-03-29 07:41 | RAD REPORT ---
EXAM DESCRIPTION: CT - Soft Tissue Neck W/Contr - 03/29/2023 6:51 am CLINICAL HISTORY: Tongue carcinoma. Neck swelling and pain COMPARISON: February 2023 TECHNIQUE: Computed axial tomography of the neck was obtained. 100 cc Isovue 300 was administered i ntravenously. Coronal and sagittal reconstruction was performed. All CT scans are performed using dose optimization technique as appropriate and may include automated exposure control or mA/KV adjustment according to patient size. FINDINGS: Postsurgical changes involve the tongue and oral cavity. There is ill-defined 3.5 x 2 centimeter fluid collection which lies within the anterior subcutaneous tissues just to the left of midline below the mandible. Diffuse edema is present within the subcutaneous tissues. A 7 millimeter air bubble is present within the subcutaneous tissue below left parotid gland. Right tonsil has been resected Edema within the maken[place] pharynx results in marked narrowing of the airway. Tracheostomy tube in good pos ition. IMPRESSION: Postsurgical changes tongue and oral cavity Ill-defined 3.5 x 2 centimeter fluid collection anterior subcutaneous tissues to the left of midline below the mandible there may be postsurgical. Abscess is probably less likely but can be monitored wi th follow-up ultrasound. Diffuse edema throughout the subcutaneous tissues may indicate a cellulitis and should be correlated clinically. Marked edema within the oropharynx resulting in narrowing of the airway. Tracheostomy tube in good po sition 7 millimeter air bubble subcutaneous tissues below left parotid gland may be infectious. Drainable ad jacent fluid collection not noted
--- NOTE | 2023-03-29 08:11 | EDPHYS ---
Physician Documentation [facility] Name: Brii Garcia Age: 42 yrs Sex: Female : 1980 Arrival Date: 03/29/2023 Time: 04:15 Bed 4 Private MD: ED Physician Lakhwinder Darden HPI: 03/29 04:28 This 42 yrs old Black Female presents to ER via EMS with complaints of neck pain around [facility] neck surgery site . 04:28 42-year-old female with history of head and neck cancer presents with a cute onset of sp4 bilateral upper neck and throat pain associated with respiratory congestion and dyspnea secondary to tracheostomy occlusion with a sputum. Patient reports history of head and neck surgery at [facility] 3 weeks ago. . 04:31 History of Squamous cell carcinoma of tongue; with resection at [address] 3 weeks ago. Patient is scheduled to see her ENT surgeon for follow-up this morning. . ROUTE MANAGER: 08:23 LMP N/A - control method db Historical: - PMHx: 04:19 Squamous cell carcinoma of tongue; rv - PSHx: 04:19 Carcinoma removed; G tube placement; tracheostomy; rv - Immunization history:: Adult Immunizations. - Social history:: Smoking status: . - Family history:: not pertinent. ROS: 04:31 Constitutional: Negative for fever, chills, and weight loss, positive for neck pain, sp4 upper neck pain and swelling, tracheostomy occlusion with a sputum, shortness of breath Eyes: Negative for injury, pain, redness, and discharge, ENT: Negative for injury, positive for recent head and neck surgery including tracheostomy placement positive for pain in upper neck, positive for upper neck swelling, positive for tracheostomy occlusion at home with a respiratory secretions Neck: Positive for pain, and swelling, Respiratory: Negative for wheezing, and pleuritic chest pain, positive for cough and shortness of breath 04:31 All other systems are negative. Exam: 04:31 Constitutional: This is a well developed, well nourished patient who is awake, alert, sp4 ill-appearing female thin appearing female, tracheostomy in place, tracheostomy was suctioned. There is bilateral neck swelling more pronounced on the left side with sutures in place. Patient is nontoxic-appearing with stable oxygenation on arrival Head/Face: Normocephalic, atraumatic. Eyes: Pupils equal round and reactive to light, extra-ocular motions intact. Lids and lashes normal. Conjunctiva and sclera are not injected. Cornea within normal limits. Periorbital areas with no swelling, redness, or edema. ENT: Nares patent. No nasal discharge, no septal abnormalities noted. Tympanic membranes are normal and external auditory canals are clear. There are signs of recent tongue resection with multiple sutures in place, distortion of pharyngeal tissue secondary to recent surgery, no pharyngeal occlusion. Neck: Trachea midline, no thyromegaly or masses palpated , bilateral upper neck swelling more pronounced on the left side. There is also tracheostomy in place with significant tracheostomy contamination of the purulent respiratory secretions, trach collar also appears to be heavily contaminated with respiratory secretions. There is a right THERESA drain in place right lateral neck. There also appears to be a surgical drain in place at the tracheostomy site and is sutured to the neck. Chest/axilla: Normal chest wall appearance and motion. Nontender with no deformity. No lesions are appreciated. Cardiovascular: Regular rate and rhythm with a normal S1 and S2. No gallops, murmurs, or rubs. Normal PMI, no JVD. No pulse deficits. Respiratory: Lungs have equal breath sounds bilaterally, clear to auscultation and percussion. No rales, rhonchi or wheezes noted. No increased work of breathing, no retractions or nasal flaring. Tracheostomy dependent patient Abdomen/GI: Soft, non-tender, with normal bowel sounds. No distension or tympany. No guarding or rebound. No evidence of tenderness throughout. Back: No spinal tenderness. No costovertebral tenderness. Skin: Warm, dry with normal turgor. Normal color with no rashes, no lesions, and no evidence of cellulitis. MS/ Extremity: Pulses equal, no cyanosis. Neurovascular intact. Full, normal range of motion. Neuro: Awake and alert, GCS 15, oriented to person, place, time, and situation. Cranial nerves II-XII grossly intact. Motor strength 5/5 in all extremities. Sensory grossly intact. Psych: Awake, alert, with orientation to person, place and time. Behavior, mood, and affect are within normal limits 05:31 ECG was reviewed by the Attending Physician. There is normal sinus rhythm at the rate sp4 of 87, EKG time 0430 there is left ventricular hypertrophy otherwise no ectopy, no ST elevation or depression, otherwise normal EKG overall Vital Signs: 04:16 BP 98 / 71; Pulse 94; Resp 18; Temp 98.2; Pulse Ox 100% on R/A; Weight 64 kg; rv 04:30 BP 98 / 71; Pulse 93; Resp 21; Pulse Ox 100% ; rv 05:33 BP 119 / 65; Pulse 89; Resp 18; Pulse Ox 99% on R/A; rv 06:50 BP 124 / 108; Pulse 106; Resp 14; Pulse Ox 96% on R/A; rv 07:00 BP 95 / 72; Pulse 92; Resp 14; Pulse Ox 100% on R/A; db 07:30 BP 110 / 82; Pulse 99; Resp 16; Pulse Ox 100% on R/A; db 08:00 BP 98 / 70; Pulse 88; Resp 16; Pulse Ox 100% on R/A; db [place] Coma Score: 06:50 Eye Response: spontaneous(4). Motor Response: obeys commands(6). Verbal Response: rv oriented(5). Total: 15. Procedures: 05:05 Performed Tracheostomy exchange,. Patient's tracheostomy was exchanged for a size 8 sp4 cuffed tracheostomy. . Verbal consent was obtained the old tracheostomy was removed and it turned out that it has a large glob of inspissated mucus blocking airflow. It was noted the tracheostomy 7.5 ID uncuffed in size. The tracheostomy was exchanged for size 8 uncuffed tracheostomy. Patient had some forceful cough with procedure but otherwise she settled down with a new tracheostomy quite well. . MDM: 04:28 Patient medically screened. sp4 07:08 Data reviewed: vital signs, nurses notes, EMS record, old medical records, lab test sp4 result(s), EKG, radiologic studies, CT scan. Transition of care: After a detail discussion of the patient's case, care is transferred to Lakhwinder Darden MD. 08:09 ED course: Patient taken over from Dr. Donahue from yesterday ammunition supervisor. Patient is sp3 pain-free and is able to use her tracheostomy without difficulty. She has an appointment with her oncologist later this morning in [place]. Antibiotics have been given for possible cellulitis. Remainder of CT and laboratory results demonstrate no acute or emergent abnormality. Will defer to her oncology team for continued care.. 03/29 05:43 Order name: CBC with Automated Diff; Complete Time: 06:28 EDMO 03/29 05:57 Order name: Protime (+INR); Complete Time: 06:28 EDMS 03/29 05:58 Order name: Basic Metabolic Panel; Complete Time: 06:28 EDMO 03/29 05:58 Order name: Liver (Hepatic) Function; Complete Time: 06:28 EDMO 03/29 05:58 Order name: Troponin High Sensitivity; Complete Time: 06:28 EDMS 03/29 05:58 Order name: NT PRO-BNP; Complete Time: 06:28 EDMO 03/29 05:58 Order name: Magnesium; Complete Time: 06:28 EDMO 03/29 07:06 Order name: Blood Culture EDMO 03/29 07:06 Order name: Blood Culture [facility] 03/29 04:19 Order name: CT Neck Angio: change to simple soft tissue neck with IV contrast [facility] 03/29 07:06 Order name: Soft Tissue Neck W/Contr; Complete Time: 08:08 EDMO 03/29 07:06 Order name: Thorax W/ Con; Complete Time: 08:08 [facility] 03/29 04:18 Order name: EKG; Complete Time: 06:58 [facility] 03/29 04:18 Order name: Cardiac monitoring; Complete Time: 04: sp4 03/29 04:18 Order name: EKG - Nurse/Tech; Complete Time: 04: sp4 03/29 04:18 Order name: IV Saline Lock; Complete Time: 04: sp4 03/29 04:18 Order name: Labs collected and sent; Complete Time: 04: sp4 03/29 04:18 Order name: O2 Per Protocol; Complete Time: 04: sp4 03/29 04:18 Order name: O2 Sat Monitoring; Complete Time: : EC:31 Rate is 87 beats/min. Rhythm is regular, Normal Sinus Rhythm. QRS [place] is Normal. [place] sp4 interval is normal. QRS interval is normal. QT interval is normal. T waves are Normal. No ST changes noted. Clinical impression: No evidence of ischemia. Interpreted by me. Administered Medications: 04:54 Drug: fentaNYL (PF) IVP 100 mcg Route: IVP; Site: right forearm; jb4 08:20 Follow up: Response: No adverse reaction db 04:54 Drug: Ondansetron IVP 4 mg Route: IVP; Site: right forearm; jb4 08:20 Follow up: Response: No adverse reaction db 05:16 Drug: Piperacillin-Tazobactam IVPB 3.375 grams Route: IVPB; Infused Over: 60 mins; jb4 Site: left hand; 05:59 Follow up: Response: No adverse reaction; IV Status: Completed infusion; IV Intake: rv 100ml 05:26 Drug: fentaNYL (PF) IVP 50 mcg Route: IVP; Site: right forearm; rv 08:19 Follow up: Response: No adverse reaction db 05:59 Drug: vancoMYCIN IVPB 1 grams Route: IVPB; Infused Over: 2 hrs; Site: left hand; rv 07:45 Follow up: Response: No adverse reaction; IV Status: Completed infusion; IV Intake: db 250ml 07:28 Not Given (Patient Refused): fentaNYL (PF) IVP 50 mcg IVP once ll1 07:30 Drug: HYDROmorphone IVP 1 mg Route: IVP; Site: right antecubital; db 08:19 Follow up: Response: No adverse reaction; Pain is decreased db Disposition Summary: 03/29/23 08:10 Discharge Ordered Location: Home sp3 Condition: Stable sp3 Diagnosis - Obstructed tracheostomy, cellulitis, squamous cell cancer of the tongue sp3 Followup: sp3 - With: Private Physician - When: Upon discharge from the Emergency Department - Reason: Continuance of care Discharge Instructions: - Discharge Summary Sheet sp4 - Tracheostomy Tube Safety and Care, Adult sp4 Forms: - Medication Reconciliation Form sp3 - Thank You Letter sp3 - Antibiotic Education sp3 - Prescription Opioid Use sp3 - Patient Portal Instructions sp3 Prescriptions: - levofloxacin 500 mg Oral Tablet - take 1 tablet by ORAL route once daily for 7 days; 7 tablet; Refills: 0, sp4 Product Selection Permitted Signatures: Dispatcher [employer] Jaciel Sandoval RN RN jb4 Marcin Askew RN RN rv Lakhwinder Darden MD MD sp3 Kathrin Tobar RN RN Sal Gonzalez MD MD sp4 Saira Suero RN ll1 Corrections: (The following items were deleted from the chart) 06:58 06:58 Chest Abdomen W/ Con+CT.RAD.BRZ ordered. EDMS EDMS 08:11 06:58 CBC+H.LAB.BRZ ordered. EDMS EDMS 08:11 06:58 BLOOD CULTURE*+BA.LAB.BRZ ordered. EDMS EDMS 08:12 06:58 BASIC METABOLIC PANEL+C.LAB.BRZ ordered. EDMS EDMS 08:12 06:58 HEPATIC FUNCTION+C.LAB.BRZ ordered. EDMS EDMS 08:12 06:58 MAGNESIUM+C.LAB.BRZ ordered. EDMS EDMS 08:12 06:58 PROBNP+C.LAB.BRZ ordered. EDMS EDMS 08:12 06:58 PROTIME (+INR)+COAG.LAB.BRZ ordered. EDMS EDMS 08:12 06:58 Troponin High Sensitivity+C.LAB.BRZ ordered. EDMS EDMS
--- NOTE | 2023-03-29 08:11 | ER ---
Nurse's Notes [facility] Name: Brii Garcia Age: 42 yrs Sex: Female : 1980 Arrival Date: 03/29/2023 Time: 04:15 Bed 4 Private MD: Diagnosis: Obstructed tracheostomy, cellulitis, squamous cell cancer of the tongue Presentation: 03/29 04:16 Chief complaint: EMS states: PT HAD RECENT SURGERY OF TONGUE AND NECK FOR CANCER rv REMOVAL. PT IS DC ON TRACHE. HAVE MUCUS PLAGUE AT HOME AND SUCTION IS NOT WORKING PROPERLY AT HOME. O2 SATS IS 100 UPON ARRIVAL. Coronavirus screen: At this time, the client does not indicate any symptoms associated with coronavirus-19. Ebola Screen: No symptoms or risks identified at this time. Initial Sepsis Screen: Does the patient meet any 2 criteria? No. Patient's initial sepsis screen is negative. Does the patient have a suspected source of infection? No. Patient's initial sepsis screen is negative. Risk Assessment: Do you want to hurt yourself or someone else? Patient reports no desire to harm self or others. Onset of symptoms was March 29, 2023. 04:16 Method Of Arrival: EMS: [facility] rv 04:16 Acuity: ANG 2 rv Triage Assessment: 04:19 General: Appears uncomfortable, Behavior is calm, cooperative. Pain:. Neuro: Level of rv Consciousness is awake, alert, obeys commands, Oriented to person, place, time, situation. Cardiovascular: Capillary refill < 3 seconds. Respiratory: Airway via trache Respiratory effort is even, Sputum is thick, Breath sounds are clear bilaterally. Derm: Skin is intact. SENIOR ADVOCATE: 08:23 LMP N/A - control method db Historical: - PMHx: 04:19 Squamous cell carcinoma of tongue; rv - PSHx: 04:19 Carcinoma removed; G tube placement; tracheostomy; rv - Immunization history:: Adult Immunizations. - Social history:: Smoking status: . - Family history:: not pertinent. Screenin:21 [facility] ED Fall Risk Assessment (Adult) History of falling in the last 3 months, rv including since admission No falls in past 3 months (0 pts) Confusion or Disorientation No (0 pts) Intoxicated or Sedated No (0 pts) Impaired Gait No (0 pts) Mobility Assist Device Used No (0 pt) Altered Elimination No (0 pt) Score/Fall Risk Level 0 - 2 = Low Risk Oriented to surroundings, Maintained a safe environment, Educated pt \T\ family on fall prevention, incl call for assistance when getting out of bed, Assessed \T\ reinforced patient's understanding of fall precautions, Provided non-skid footwear, Hourly rounding (assess needs \T\ fall precautionary measures) done, Used ambulatory aids as needed (educated on \T\ assisted with), Used gait belt as appropriate. Abuse screen: Denies threats or abuse. Denies injuries from another. Nutritional screening: No deficits noted. Tuberculosis screening: No symptoms or risk factors identified. Assessment: 07:05 Reassessment: Patient appears in no apparent distress at this time. Patient and/or db family updated on plan of care and expected duration. Pain level reassessed. 07:15 Reassessment: Patient appears in no apparent distress at this time. Patient and/or db family updated on plan of care and expected duration. Pain level reassessed. Patient is alert, oriented x 3, equal unlabored respirations, skin warm/dry/pink. Pain: Complains of pain in mouth. Neuro: Level of Consciousness is awake, alert, obeys commands, Oriented to person, place, time, situation. Respiratory: Airway is patent Respiratory effort is even, unlabored, Respiratory pattern is regular, symmetrical. EENT:. 08:15 Reassessment: Patient appears in no apparent distress at this time. Patient and/or db family updated on plan of care and expected duration. Pain level reassessed. Patient is alert, oriented x 3, equal unlabored respirations, skin warm/dry/pink. Reassessment: Patient states feeling better. Patient states symptoms have improved. General: Appears in no apparent distress. comfortable, Behavior is calm, cooperative. Neuro: Level of Consciousness is awake, alert, obeys commands, Oriented to person, place, time, situation. Vital Signs: 04:16 BP 98 / 71; Pulse 94; Resp 18; Temp 98.2; Pulse Ox 100% on R/A; Weight 64 kg; rv 04:30 BP 98 / 71; Pulse 93; Resp 21; Pulse Ox 100% ; rv 05:33 BP 119 / 65; Pulse 89; Resp 18; Pulse Ox 99% on R/A; rv 06:50 BP 124 / 108; Pulse 106; Resp 14; Pulse Ox 96% on R/A; rv 07:00 BP 95 / 72; Pulse 92; Resp 14; Pulse Ox 100% on R/A; db 07:30 BP 110 / 82; Pulse 99; Resp 16; Pulse Ox 100% on R/A; db 08:00 BP 98 / 70; Pulse 88; Resp 16; Pulse Ox 100% on R/A; db [place] Coma Score: 06:50 Eye Response: spontaneous(4). Motor Response: obeys commands(6). Verbal Response: rv oriented(5). Total: 15. ED Course: 04:15 Patient arrived in ED. jj6 04:16 Marcin Askew, ANNE-MARIE is Primary Nurse. rv 04:17 Sal Gentile MD is Attending Physician. sp4 04:19 Triage completed. rv 04:20 Inserted saline lock: 20 gauge in right forearm, using aseptic technique. Blood rv collected. 04:21 Arm band placed on right wrist. rv 04:21 No provider procedures requiring assistance completed. Maintain EMS IV. Dressing rv intact. Good blood return noted. Site clean \T\ dry. Gauge \T\ site: 20 left hand. 04:22 Patient has correct armband on for positive identification. Bed in low position. Call rv light in reach. Side rails up X2. Client placed on continuous cardiac and pulse oximetry monitoring. NIBP monitoring applied. alarm security or surveillance monitor on. 07:01 Attending Physician role handed off by Sal Gentile MD sp3 07:01 Lakhwinder Darden MD is Attending Physician. sp3 07:11 Soft Tissue Neck W/Contr In Process Unspecified. EDMS 07:11 Thorax W/ Con In Process Unspecified. EDMS 08:22 Provided Education on: DISCHARGE AND FOLLOW UP. db 08:22 IV discontinued, intact, bleeding controlled, Pressure dressing applied. db Administered Medications: 04:54 Drug: fentaNYL (PF) IVP 100 mcg Route: IVP; Site: right forearm; jb4 08:20 Follow up: Response: No adverse reaction db 04:54 Drug: Ondansetron IVP 4 mg Route: IVP; Site: right forearm; jb4 08:20 Follow up: Response: No adverse reaction db 05:16 Drug: Piperacillin-Tazobactam IVPB 3.375 grams Route: IVPB; Infused Over: 60 mins; jb4 Site: left hand; 05:59 Follow up: Response: No adverse reaction; IV Status: Completed infusion; IV Intake: rv 100ml 05:26 Drug: fentaNYL (PF) IVP 50 mcg Route: IVP; Site: right forearm; rv 08:19 Follow up: Response: No adverse reaction db 05:59 Drug: vancoMYCIN IVPB 1 grams Route: IVPB; Infused Over: 2 hrs; Site: left hand; rv 07:45 Follow up: Response: No adverse reaction; IV Status: Completed infusion; IV Intake: db 250ml 07:28 Not Given (Patient Refused): fentaNYL (PF) IVP 50 mcg IVP once ll1 07:30 Drug: HYDROmorphone IVP 1 mg Route: IVP; Site: right antecubital; db 08:19 Follow up: Response: No adverse reaction; Pain is decreased db Medication: 04:22 VIS not applicable for this client. rv Intake: 05:59 IV: 100ml; Total: 100ml. rv 07:45 IV: 250ml; Total: 350ml. db Outcome: 08:10 Discharge ordered by sp3 08:22 Discharged to home ambulatory, with family. db 08:22 Condition: stable 08:22 Discharge instructions given to patient, Instructed on discharge instructions, follow up and referral plans. Prescriptions given X 1. 08:23 Patient left the ED. db Signatures: Dispatcher [employer] EDMS Jaciel Lu RN RN jb4 Marcin Askew RN RN Lakhwinder Darden MD MD sp3 Noemi Tapia6 Kathrin Tobar RN RN db Potepalov, Sergey, MD MD sp4 Saira Suero RN ll1 Corrections: (The following items were deleted from the chart) 07:12 07:12 Reassessment: Patient appears in no apparent distress at this time. Patient db and/or family updated on plan of care and expected duration. Pain level reassessed. db 08:22 07:15 Neuro: Level of Consciousness is awake, alert, obeys commands, Oriented to db person, place, time, situation, Speech is normal, db
[2023-03-29 08:46] VITALS: O2SAT 100
[2023-03-29 08:51] VITALS: BP 98/70
--- NOTE | 2023-03-29 19:16 | EKG ---
Test Date: 2023-03-29 Test Time: 04:30:24 Equipment Lead: HANS MEASUREMENT RESULTS: Intervals: Rate: 87 HI: 190 QRSD: 92 QT: 362 QTc: 435 [place]: P: 70 HI: 190 QRS: 74 T: 60 INTERPRETIVE STATEMENTS: Normal sinus rhythm Voltage criteria for left ventricular hypertrophy Cannot rule out Septal infarct, age undetermined Abnormal ECG Compared to ECG 11/11/2020 13:48:51 No significant changes Electronically Signed On 03-29-23 19:15:41 CDT by Nicholas Steven
== END 2023-03-29 08:23 | disposition home or self-care (01) ==
LOC: ER 05:03
DX: J95.03 Malfunction of tracheostomy stoma (principal); L03.90 Cellulitis, unspecified; C02.9 Malignant neoplasm of tongue, unspecified
CPT/HCPCS: 93005; 87040 ×2; 85025; 80048; 36415; 83735; 85610; 80076; 84484; 83880; 71260; 70491; Q9967; J2543; J3010 ×3; J1170; J2405; J7050; 99285

== ENCOUNTER 2023-04-01 19:25 | Emergency (ER) | payer OTHER ==
--- OUTSIDE RECORDS SUMMARY | 2023-04-01 19:32 | XMS REPORT | Continuity of Care Document ---
:1980 Author Organization [facility] t Address [address] [place] [address] Care Team Providers Name Role Phone SUSANNA WICK Attending Clinician Unavailable YENIFER MALLOY Attending Clinician Unavailable CARLOS GRAJEDA Attending Clinician Unavailable Carlos Grajeda MD Attending Clinician [phone] Jose Snyder MD Attending Clinician Demetrius Dugan MD Attending Clinician Shantanu KHALIL, Yash Maurer Attending Clinician [phone] Alvin Alcala Attending Clinician Unavailable Maryann Mclean MD Attending Clinician Susanna Wick MD Attending Clinician Abdoulaye Johnson MD Attending Clinician ABDOULAYE JOHNSON Attending Clinician Unavailable Eloisa XIE, Gypsy Attending Clinician Unavailable Yenifer Malloy Attending Clinician Aruna Packer LMSW Attending Clinician Unavailable Prabha Narvaez Attending Clinician [phone] PRABHA WINN Attending Clinician Unavailable Yolanda KHALIL, Mindy Cobb Attending Clinician [phone] Attending Clinician Unavailable Judit Lau Attending Clinician Meño KHALIL, Mariaa Vitale Attending Clinician Kimberli Sierra MD Attending Clinician KIMBERLI SIERRA Attending Clinician Unavailable Chika Rosa Attending Clinician Unavailable SUSANNA WICK Admitting Clinician Unavailable JUDIT LAU Admitting Clinician Unavailable Payers Payer Name Policy Type Policy Number Effective Date Expiration Date S ource [place] [id number] 2022 00:00:00 Problems Condition Condition Condition Status Onset Resolution Last Treating Co mments Source Name Details Category Date Date Treatment Clinician Date 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 Oral phase Oral phase Disease Recurre [facility] dysphagia dysphagia nce - [facility] 00:00: Medical 00 [place] Oropharyng Oropharyng Disease Active [facility] eal cancer eal cancer 01-18 Crista kes 00:00: Medical 00 Center Allergies, Adverse Reactions, Alerts Allergy Allergy Status Severity Reaction(s) Onset Inactive Treating Comm ents Source Name Type Date Date Clinician Hydrocod Drug Active Other (See Headaches [facility] one Allergy Comments) -20 [facility] 00 Center HYDROCOD Allergy Active High Other [facility] ONE -20 [facility] 00:00: Medical 00 [place] No Known DA Active [facility] 05-12 Allergie 00:00: s 00 NO KNOWN Allergy Active [facility] Family History Family Member Diagnosis Comments Start Date Stop Date Source Natural father Lung cancer [facility] Maternal aunt Cancer [facility] Maternal uncle Prostate cancer [facility] Maternal uncle Kidney failure [facility] Natural mother Stomach cancer [facility] Social History Social Habit Start Date Stop Date Quantity Comments Source History of tobacco Cigarette Smoker [facility] use [facility] History [facility] Transport Non-Med Medical Center Alcohol intake 2023-03-08 2023-03-08 Ex-drinker [facility] 00:[facility] 00:00:00 (finding) Medical Center Exposure to 2023-02-22 2023-03-04 Not sure [facility] SARS-CoV-2 (event) 00:00:00 02:06:00 Medica l Center History [facility] 2023-03-04 2023-03-[address] [facility] [address] [facility] Transport Med 00:00:00 00:00:[address] History [facility] 2023-03-04 2023-03-[address] [facility] [address] [facility] Housing Unable to 00:00:00 00:00:00 Medical Center Pay History [facility] 2023-03-04 2023-03-[address] [facility] [address] [facility] Housing Places 00:00:00 00:00:00 Medical Ce nter Lived History [facility] 2023-03-04 2023-03-[address] [facility] [address] [facility] Housing Homeless 00:00:00 00:00:00 Medical Center Last Year Cigarettes smoked 2023-02-23 2023-02-23 [facility] current (pack per 00:00:00 00:00:00 Medical Center day) - Reported Cigarette 2023-02-23 2023-02-[address] [facility] pack-years 00:00:00 00:00:00 Medical Center Tobacco use and 2023-02-23 2023-02-23 Smokeless tobacco [facility] exposure 00:00:00 00:00:00 non-user Medical Center Alcohol Comment 2023-01-18 2023-01-18 every other week, [facility] 00:00:00 00:00:00 1 can [facility] Sex Assigned At [birth year] F [...] (5 mg [facility] solution 07:57: total) by [facility] 54 mouth Center every 4 (four) hours as needed for Pain. morphine 10 2022-0 Yes 5mg Take 2.[address] mg/5 mL 7-01 mLs (5 mg [facility] solution 07:57: total) by [facility] 54 mouth Center every 4 (four) hours as needed for Pain. morphine 10 2022-0 Yes 5mg Take 2.[address] mg/5 mL 7-01 mLs (5 mg [facility] solution 07:57: total) by [facility] 54 mouth Center every 4 (four) hours [...] (5 mg [facility] solution 13:57: total) by [facility] 48 mouth Center every 4 (four) hours as needed for Pain. miscellaneo Yes Oral [facility] 6-24 suction [facility] supply Misc 00:00: machine. Ct dical 00 Center miscellaneo [address] [facility] 6-24 suction [facility] supply Misc 00:00: machine. Me dical 00 Center miscellaneo [address] [facility] 6-24 suction [facility] supply Misc 00:00: machine. Ct dical 00 Center miscellaneo [address] [facility] 6-24 suction [facility] supply Misc 00:00: machine. Ct dical 00 Center miscellaneo [address] [facility] 6-24 suction [facility] supply Misc 00:00: machine. Ct dical 00 Center methadone Yes Cancer 2mg Take [address] (DOLOPHINE) 6-23 associated (2 mg L ukes 5 mg/5 mL 00:00: pain total) by [facility] ical solution 00 mouth Center every 12 (twelve) hours. lactulose 0 Yes 20g [id number] Take [address] (CHRONULAC) 6-23 [id number] mLs (20 g [facility]ukes 10 gram/15 00:00: 3D total) by Ct dical mL solution 00 mouth 3 Cente [...] 12 (twelve) hours. lactulose 3-0 Yes 20g Q.[id number] Take [address] (CHRONULAC) 6-23 [id number] mLs (20 g [facility] 10 gram/15 00:00: 3D total) by Ct dical mL solution 00 mouth 3 Cente [...] 12 (twelve) hours. lactulose 3-0 Yes 20g Q.[id number] Take [address] (CHRONULAC) 6-23 [id number] mLs (20 g [facility] 10 gram/15 00:00: 3D total) by Ct dical mL solution 00 mouth 3 Cente [...] 12 (twelve) hours. lactulose 2023-0 Yes 20g Q.[id number] Take [address] (CHRONULAC) 6-23 [id number] mLs (20 g [facility] 10 gram/15 00:00: [...] 12 (twelve) hours. lactulose 3-0 Yes 20g Q.[id number] Take [address] (CHRONULAC) 6-23 [id number] mLs (20 g [facility] 10 gram/15 00:00: 3D total) by Ct dical mL solution 00 mouth 3 Cente r (three) times daily. viscous 3-0 Yes 5mL Swish and [facility] t lidocaine 6-23 spit 5 mLs Luke s 2% (VISCOUS 00:00: every 6 Med ical LIDOCAINE) 00 (six) Center 2 % Soln hours as mucosal needed. solution lactulose 2022-0 Yes 20g Q.[id number] Take [address] (CHRONULAC) 6-23 [id number] mLs (20 g [facility]ukes 10 gram/15 00:00: 3D total) by Ct dical mL solution 00 mouth 3 Cente [...] St -acetaminop 5-19 05-19 mouth [facility] hen ([place] :54: 00:00 every 6 Med ical 7.5-325) 24 :00 (six) Center 7.5-325 mg hours as per tablet needed for Pain (kimberlyn pain) Liquid form. HYDROcodone 2022- No Take by I St -acetaminop 5-19 05-19 mouth [facility] hen ([place] 09:54: 00:00 every 6 Med ical 7.5-325) 24 :00 (six) Center 7.5-325 mg hours as per tablet needed for Pain (kimberlyn pain) Liquid form. HYDROcodone 2022- No Take by I St -acetaminop 5-19 05-19 mouth [facility] hen ([place] 09:54: 00:00 every 6 Med ical 7.5-325) 24 :00 (six) Center 7.5-325 mg hours as per tablet needed for Pain (kimberlyn pain) Liquid form. HYDROcodone 2022- No Take by I St -acetaminop 5-19 05-19 mouth [facility] 09:54: 00:00 every 6 Med ical [...] St -acetaminop 5-19 05-19 mouth [facility] 09:54: 00:00 every 6 Med ical [...] kg Heart rate 2023-03-13 11:21:03 77 /min [facility] Body temperature 2023-03-13 11:21:03 36.78 Margi [facility] Respiratory rate 2023-03-13 11:21:03 17 /min [facility] Oxygen saturation in 2023-03-13 11:21:03 98 /min [facility] Arterial blood by Medical Ce nter Pulse oximetry Systolic blood 2023-03-13 11:20:30 97 mm[Hg] [facility] Diastolic blood 2023-03-13 11:20:30 68 mm[Hg] [facility] Heart rate 2023-03-10 07:45:31 75 /min [facility] Respiratory rate 2023-03-10 07:45:31 16 /min [facility] Oxygen saturation in 2023-03-10 07:45:31 100 /min [facility] Arterial blood by Medical Ce nter Pulse oximetry Body temperature 2023-03-10 07:44:56 36.94 Margi [facility] Systolic blood 2023-03-10 07:44:15 119 mm[Hg] [facility] Diastolic blood 2023-03-10 07:44:15 86 mm[Hg] [facility] Heart rate 2023-03-09 11:34:32 74 /min [facility] Respiratory rate 2023-03-09 11:34:32 18 /min [facility] Oxygen saturation in 2023-03-09 11:34:32 99 /min [facility] Arterial blood by Medical Ce nter Pulse oximetry Body temperature 2023-03-09 11:34:02 36.61 Margi [facility] Systolic blood 2023-03-09 11:33:45 124 mm[Hg] [facility] Diastolic blood 2023-03-09 11:33:45 90 mm[Hg] [facility] Systolic blood 2023-03-08 10:30:00 136 mm[Hg] [facility] Diastolic blood 2023-03-08 10:30:00 100 mm[Hg] [facility] Heart rate 2023-03-08 10:30:00 64 /min [facility] Respiratory rate 2023-03-08 10:30:00 11 /min [facility] Oxygen saturation in 2023-03-08 10:30:00 99 /min [facility] Arterial blood by Medical Ce nter Pulse oximetry Body temperature 2023-03-08 09:54:00 36 Margi [facility] Body height 2023-03-03 12:40:00 152.4 cm [facility] Body weight 2023-03-03 12:40:00 54.885 kg [facility] BMI 2023-03-03 12:40:00 23.63 kg/m2 [facility] Body height 2023-02-28 14:00:00 154.9 cm [facility] Body weight 2023-02-28 14:00:00 56.246 kg [facility] BMI 2023-02-28 14:00:00 23.43 kg/m2 [facility] Systolic blood 2023-02-24 08:13:00 120 mm[Hg] [facility] Diastolic blood 2023-02-24 08:13:00 97 mm[Hg] [facility] Heart rate 2023-02-24 08:13:00 88 /min [facility] Body height 2023-02-24 08:13:00 154.9 cm [facility] Body weight 2023-02-24 08:13:00 56.337 kg [facility] BMI 2023-02-24 08:13:00 23.47 kg/m2 [facility] Oxygen saturation in 2023-02-24 08:13:00 100 /min [facility] Arterial blood by Medical Ce nter Pulse oximetry Body temperature 2023-02-23 08:02:00 37 Margi [facility] Systolic blood 2023-01-20 07:55:00 136 mm[Hg] [facility] Diastolic blood 2023-01-20 07:55:00 82 mm[Hg] [facility] Heart rate 2023-01-20 07:55:00 71 /min [facility] Body temperature 2023-01-20 07:55:00 36.44 Margi [facility] Respiratory rate 2023-01-20 07:55:00 18 /min [facility] Oxygen saturation in 2023-01-20 07:55:00 100 /min [facility] Arterial blood by Medical Ce nter Pulse oximetry Systolic blood 2023-01-19 12:52:00 128 mm[Hg] [facility] Diastolic blood 2023-01-19 12:52:00 85 mm[Hg] [facility] Heart rate 2023-01-19 12:52:00 66 /min [facility] Body temperature 2023-01-19 12:52:00 36.72 Margi [facility] Respiratory rate 2023-01-19 12:52:00 18 /min [facility] Oxygen saturation in 2023-01-19 12:52:00 100 /min [facility] Arterial blood by Medical Ce nter Pulse oximetry Body height 2023-01-18 04:00:00 154.9 cm [facility] Body weight 2023-01-18 04:00:00 57.561 kg [facility] BMI 2023-01-18 04:00:00 23.98 kg/m2 [facility] Procedures Procedure Date / Time Performing Clinician Source Performed GLOSSECTOMY, TOTAL 2023-03-14 07:30:00 Susanna Wick [facility] DISSECTION, NECK, RADICAL 2023-03-14 07:30:00 Susanna Wick Eddie [facility] SKIN FLAP PROCEDURE, 2023-03-14 07:30:00 Vinh Alcocer [facility] FREE FLAP PROCEDURE, 2023-03-14 07:30:00 Vinh Alcocer [facility] LOWER EXTREMITY, WITH Medical Ce nter MICROVASCULAR ANASTOMOSIS FLAP PROCEDURE, MUSCLE, 2023-03-14 07:30:00 Vinh Alcocer [facility] CREATION, FLAP, ROTATION 2023-03-14 07:30:00 Vinh Alcocer [facility] POCT-GLUCOSE METER 2023-03-13 11:44:00 Susanna Wick [facility] POCT-GLUCOSE METER 2023-03-13 06:05:00 [facility] 2023-03-13 03:53:00 [facility] MAGNESIUM 2023-03-13 03:53[facility] 2023-03-13 03:53:00 [facility] POCT-[facility]SE METER 2023-03-13 00:08:00 Susanna Wick [facility] POCT-GLUCOSE METER 2023-03-12 15:54:00 Susanna Wick [facility] POCT-GLUCOSE METER 2023-03-12 12:22:00 Susanna Wick [facility] POCT-GLUCOSE METER 2023-03-12 06:14:00 Susanna Wick [facility] BASIC METABOLIC PANEL 2023-03-12 03:31:00 [facility] MAGNESIUM 2023-03-12 03:31:00 [facility] 2023-03-12 03:31:00 [facility] POCT-GLUCOSE METER 2023-03-11 23:54:00 Susanna Wick [facility] POCT-GLUCOSE METER 2023-03-11 16:29:00 [facility] POCT-GLUCOSE METER 2023-03-11 12:28:00 [facility] POCT-GLUCOSE METER 2023-03-11 06:03:00 Susanna Wick [facility] BASIC METABOLIC PANEL 2023-03-11 04:02:00 [facility] 2023-03-11 04:02:00 [facility] PHOSPHORUS 2023-03-11 04:02:00 [facility] BASIC METABOLIC PANEL 2023-03-10 06:07:00 [facility] MAGNESIUM 2023-03-10 06:07:00 [facility] PHOSPHORUS 2023-03-10 06:07:00 [facility] POCT-GLUCOSE METER 2023-03-10 05:58:00 Susanna Wick [facility] POCT-GLUCOSE METER 2023-03-09 23:19:00 [facility] POCT-GLUCOSE METER 2023-03-09 17:49:00 Susanna Wick [facility] POCT-GLUCOSE METER 2023-03-09 11:35:00 Susanna Wick [facility] POCT-GLUCOSE METER 2023-03-09 06:08:00 Susanna Wick [facility] CBC W/PLT COUNT & AUTO 2023-03-09 04:54:00 [facility] [facility] BASIC METABOLIC PANEL 2023-03-09 04:54:00 [facility] MAGNESIUM 2023-03-09 04:54:00 [facility] PHOSPHORUS 2023-03-09 04:54:00 [facility] ABORH, MANUAL 2023-03-09 04:54:00 [facility] CBC W/PLT COUNT & AUTO 2023-03-09 04:54:00 [facility] POCT-GLUCOSE METER 2023-03-08 23:36:00 [facility] 2023-03-08 17:43:00 [facility] POCT-GLUCOSE METER 2023-03-08 11:29:00 Susanna Wick [facility] INSERTION, GASTROSTOMY 2023-03-08 07:55:00 Jose Snyder [facility] TUBE, LAPAROSCOPIC Medical Cente r POCT , URINE 2023-03-08 07:31:00 Sofie Blackwood [facility] TYPE AND SCREEN, 2023-03-08 07:28:[address] [facility] POCT-GLUCOSE METER 2023-03-08 05:51:00 [facility] CBC W/PLT COUNT & AUTO 2023-03-08 03:29:00 [facility] BASIC METABOLIC PANEL 2023-03-08 03:29:00 [facility] MAGNESIUM 2023-03-08 03:29:00 [facility] 2023-03-08 03:29:00 [facility] CBC W/PLT COUNT & AUTO 2023-03-08 03:29:00 Lito Hernandez CH, I [facility] DIFFERENTIAL [facility] POCT-GLUCOSE METER 2023-03-07 23:30:00 [facility] POCT-GLUCOSE METER 2023-03-07 17:42:00 [facility] POCT-GLUCOSE METER 2023-03-07 12:05:00 [facility] POCT-GLUCOSE METER 2023-03-07 06:28:00 [facility] CBC W/PLT COUNT & AUTO 2023-03-07 04:54:00 [facility] BASIC METABOLIC PANEL 2023-03-07 04:54:00 [facility] 2023-03-07 04:54:00 [facility] PHOSPHORUS 2023-03-07 04:54:00 [facility] CBC W/PLT COUNT & AUTO 2023-03-07 04:54:00 Lito Hernandez CH, I [facility] DIFFERENTIAL [facility] POCT-GLUCOSE METER 2023-03-06 23:58:00 Susanna Wick [facility] POCT-GLUCOSE METER 2023-03-06 17:09:00 Susanna Wick [facility] SCREEN, URINE 2023-03-06 14:44:00 Jose Snyder [facility] POCT-GLUCOSE METER 2023-03-05 16:54:00 [facility] POCT-GLUCOSE METER 2023-03-05 12:26:00 [facility] CBC W/PLT COUNT & AUTO 2023-03-05 05:07:00 Chadd Clemente [facility] COMPREHENSIVE METABOLIC 2023-03-05 05:07:00 Chadd Clemente [facility] PANEL [facility] PREALBUMIN 2023-03-05 05:07:00 Chadd Clemente [facility] APTT 2023-03-05 05:07:00 Chadd Clemente [facility] PROTHROMBIN TIME/INR 2023-03-05 05:07:00 Chadd Clemente [facility] CBC W/PLT COUNT & AUTO 2023-03-05 05:07:00 Chadd Clemente [facility] HC LAB HIV-1 AG W/HIV-1&2 2023-03-04 12:31:00 Fall, Nakul Justice [facility] HEPATITIS C ANTIBODY 2023-03-04 12:31:00 Fall, Nakul Justice [facility] PREALBUMIN 2023-03-04 12:31:[address] [facility] XR ABDOMEN/KUB 1 VIEW 2023-03-03 18:48:00 Rick Ball [facility] LARYNGOSCOPY, WITH BIOPSY 2023-03-03 16:15:00 Susanna Wick [facility] LARYNGOSCOPY, WITH BIOPSY 2023-03-03 14:48:00 Susanna Wick [facility] POCT , URINE 2023-03-03 13:08:00 Maryann Mclean [facility] CT CHEST WITH IV CONTRAST 2023-02-23 12:27:50 Prabha Winn [facility] CT NECK SOFT TISSUE WITH 2023-02-23 12:27:31 Prabha Winn [facility] IV CONTRAST [facility] XT NORMAL BLOOD (TEMPUS) 2023-02-23 10:54:00 Carlos Grajeda [facility] BASIC METABOLIC PANEL 2023-01-20 04:17:00 Mariaa Wilder [facility] MAGNESIUM 2023-01-20 04:17:00 [facility] 2023-01-20 04:17:00 [facility]OLIC PANEL 2023-01-19 05:08:00 Mariaa Wilder [facility] MAGNESIUM 2023-01-19 05:08:00 Mariaa Wilder [facility] PHOSPHORUS 2023-01-19 05:08:[facility] VITAMIN B12 2023-01-19 05:08:00 Meño [facility] IRON, TIBC, % SAT. 2023-01-19 05:08:00 Mariaa Wilder [facility] (WITHOUT FERRITIN) Medical Cente r CT CHEST WITH IV CONTRAST 2023-01-18 14:51:00 Cesia Lau [facility] CBC W/PLT COUNT & AUTO 2023-01-18 05:18:[address] [facility] COMPREHENSIVE METABOLIC 2023-01-18 05:18:00 Lukas Laurupa ESCAMILLA [facility] MAGNESIUM 2023-01-18 05:18:[address] [facility] PHOSPHORUS 2023-01-18 05:18:00 [facility] CBC W/PLT COUNT & AUTO 2023-01-18 05:18:00 Shanae Laualfonso Hurd [facility] Plan of Care Planned Activity Planned [...] Medica l Center cervix (procedure) [code = 003877617] Future Scheduled 2019-04-[address] [facility] Test 00:00:00 malignant neoplasm of Medica l Center cervix (procedure) [code = 751220445] Future Scheduled 2019-04-[address] [facility] Test 00:00:00 malignant neoplasm of Medica l Center cervix (procedure) [code = 241483823] Future Scheduled 2019-04-[address] [facility] Test 00:00:00 malignant neoplasm of Medica l Center cervix (procedure) [code = 293538210] Future Scheduled 2019-04-[address] [facility] Test 00:00:00 malignant neoplasm of Medica l Center cervix (procedure) [code = 634896758] Future Scheduled 2019-04-[address] [facility] Test 00:00:00 malignant neoplasm of Medica l Center cervix (procedure) [code = 838439492] Future Scheduled [address] [facility] Test 00:00:00 malignant neoplasm of Medica l Center cervix (procedure) [code = 170457811] Future Scheduled [address] [facility] Test 00:00:00 malignant neoplasm of Medica l Center cervix (procedure) [code = 724476203] Future Scheduled [address] [facility] Test 00:00:00 malignant neoplasm of Medica l Center cervix (procedure) [code = 307638362] Future Scheduled [address] [facility] Test 00:00:00 malignant neoplasm of Medica l Center cervix (procedure) [code = 486066710] Future Scheduled [address] [facility] Test 00:00:00 malignant neoplasm of Medica l Center cervix (procedure) [code = 250512777] Future Scheduled [address] [facility] Test 00:00:00 malignant neoplasm of Medica l Center cervix (procedure) [code = 242511307] Future Scheduled [address] [facility] Test 00:00:00 malignant neoplasm of Medica l Center cervix (procedure) [code = 661682704] Future Scheduled [address] [facility] Test 00:00:00 malignant neoplasm of Medica l Center cervix (procedure) [code = 293051779] Future Scheduled [address] [facility] Test 00:00:00 (procedure) [code = Medical Center 64854253] Future Scheduled [address] [facility] Test 00:00:00 (procedure) [code = Medical Center 03340547] Future Scheduled [address] [facility] Test 00:00:00 (procedure) [code = [facility] 26564152] Future Scheduled [address] [facility] Test 00:00:00 (procedure) [code = [facility] 84298427] Future Scheduled [address] [facility] Test 00:00:00 (procedure) [code = Medical Center 47151105] Future Scheduled [address] [facility] Test 00:00:00 (procedure) [code = Medical Center 26813689] Future Scheduled [address] [facility] Test 00:00:00 (procedure) [code = Medical Center 99923029] Future Scheduled [address] [facility] Test 00:00:00 (procedure) [code = Medical Center 48609110] Future Scheduled [address] [facility] Test 00:00:00 (procedure) [code = Medical Center 22653842] Future Scheduled [address] [facility] Test 00:00:00 (procedure) [code = Medical Center 45195438] Future Scheduled [address] [facility] Test 00:00:00 (procedure) [code = Medical Center 03403707] Future Scheduled [address] [facility] Test 00:00:00 (procedure) [code = Medical Center 14262827] Future Scheduled 2001 DTAP/TDAP/TD VACCINES CH I [...] Type Clinicians Facility Department ID 2023-03-09 Outpatient [facility] Surgery [id number] [facility] 08:48:52 2023-03-03 Inpatient YOLANDE BARAJAS [facility] [id number] [facility] 18:30:29 SUSANNA 2023-06-05 2023-06-[address] [facility] [id number] [facility] 00:00:00 00:00:00 2023-05-05 2023-05-[address] [facility] [id number] [facility] 00:00:00 00:00:00 2023-04-12 2023-04-[address] [facility] [id number] [facility] 00:00:00 00:00:00 YENIFER 2023-04-12 2023-04-[address] [facility] [id number] [facility] 00:00:00 00:00:00 CARLOS 2023-04-04 2023-04-[address] [facility] [id number] [facility] 00:00:00 00:00:00 2023-03-03 2023-03-22 [facility]patient [facility] [id number] [facility] 12:21:00 18:52:00 SUSANNA 2023-03-13 2023-03-[address] [facility] [id number] [facility] 00:00:00 00:00:00 CARLOS 2023-03-10 [facility]23[facility]-10 [facility] [id number] 12:00:00 12:00:00 Encounter Carlos Hern[facility]dez [facility] 2023-03-10 2023-03-10 Outpatient YOLANDE KWON [facility] [id number] [facility] 00:00:00 00:00:00 CARLOS 2023-03-10 2023-03-[address] [facility] [id number] [facility] 00:00:00 00:00:00 YENIFER 2023-03-08 2023-03-08 Surgery Lillian [facility] [id number] 08:00:00 10:03:[address] [facility] 2023-03-08 2023-03-08 Anesthesia Demetrius Dugan [facility] [id number] 07:56:00 09:55:00 Event [place] Malkaambrosio Maurer [facility] 2023-03-05 2023-03-05 Anesthesia Alvin Alcala [facility] [id number] 19:31:18 19:31:18 Event [facility] 2023-03-04 2023-03-04 Travel [facility] [id number] [facility] 00:[facility]:00 00:00:00 [facility] 2023-03-03 2023-03-03 Anesthesia Caridad [facility] [id number] 16:11:00 17:19:00 [facility] 2023-03-03 2023-03-03 Surgery Debra [facility] [id number] 13:48:00 15:23:00 [facility] 2023-03-01 2023-03-01 Procedure Abdoulaye Johnson [facility] [id number] 14:00:00 15:00:00 visit Debra, Susanna [facility] 2023-03-01 2023-03-01 Travel [facility] [id number] [facility] 00:[facility]:00 00:00:00 [facility] 2023-02-28 2023-02-28 Outpatient EL YOLANDE JOHNSON [facility] [id number] SLE 11:39:48 11:39:48 ABDOULAYE 2023-02-28 2023-02-28 Outpatient EL [facility] [id number] [facility] 00:00:00 00:00:00 2023-02-28 2023-02-28 Telephone Eloisa [facility] [id number] 00:00:00 00:00:00 Gypsy [facility] 2023-02-28 2023-02-28 Travel [facility] [id number] [facility] 00:00:00 00:00:00 [facility] 2023-02-24 2023-02-24 Office Mellissa [facility] [id number] 08:00:00 10:46:55 Visit [facility] 2023-02-24 2023-02-24 Outpatient YOLANDE MONET SLE [id number] SLEDarryn 07:59:33 10:46:55 LONGTON 2023-02-24 2023-02-24 Outside Nicci, [facility] [id number] 00:00:00 00:00:00 Orders [facility] 2023-02-24 2023-02-24 Telephone Birdie, [facility] [id number] 00:00:00 00:00:00 [facility] 2023-02-23 2023-02-23 Hospital Lostmi, [facility] [id number] 11:38:18 23:59:00 Encounter [facility] 2023-02-23 2023-02-23 Outpatient BHAVIN WINN SLEDarryn SLE [id number] [facility] 11:38:18 23:59:00 [facility]23-[facility]-23 2023-02-23 [facility] [id number] 11:37:51 11:37:51 Encounter [facility] 2023-02-23 2023-02-23 Outpatient BHAVIN WINN SLEDarryn [facility] [id number] [facility] 11:37:51 11:37:51 [facility] 2023-02-23 2023-02-23 Office Nicci, [facility] [id number] 08:00:00 11:23:[address] [facility] 2023-02-23 2023-02-23 Outpatient BHAVIN GRAJEDA [facility] [id number] [facility] 07:59:25 11:23:03 [facility] 2023-02-23 2023-02-23 Treatment Grajeda, [facility] [id number] 10:35:00 10:50:00 [facility] 2023-02-23 2023-02-[address] [facility] [id number] SLE 10:44:57 10:44:57 2023-02-23 2023-02-23 Outpatient EL [facility] SLE [id number] [facility] 00:00:00 00:00:00 2023-02-23 2023-02-23 Orders Yolanda, [facility] [id number] 00:00:00 00:00:00 Only [facility] 2023-02-23 2023-02-23 Documentat Kurt [facility] [id number] 00:00:00 00:00:00 ion [facility] 2023-02-21 2023-02-21 Orders [place], [facility] [id number] 00:00:00 00:00:00 Only [facility] 2023-02-15 2023-02-15 Telephone Nicci [facility] [id number] 00:00:00 00:00:00 [facility] 2023-01-18 2023-01-20 [facility] [id number] 03:16:00 12:00:00 Encounter Mariaa Wilder [facility] 2023-01-18 2023-01-20 Inpatient ER CAREN [facility] Oncology [id number] SLE 03:16:00 12:00:00 KIMBERLI 2023-01-18 2023-01-[address] [facility] [id number] SLE 00:00:00 00:00:00 [facility] 2023-01-18 2023-01-18 Travel [facility] [id number] [facility] 00:00:00 00:00:00 [facility] 2022-05-12 2022-05-12 Emergency [facility] [id number] [facility] 21:57:00 21:57:00 44 2022-05-12 2022-05-12 Emergency Emergency Moe, [facility] [id number] [facility] 21:57:00 21:57:00 Amir 44 Results Test Description Test Time Test Comments Results Result [facility] e Comments TISSUE EXAM 2023-03-24 Surgical Pathology Report 18:48:03 Case: [id number] Authorizing Provider: Susanna Wick MD Collected: 03/14/2023 09:04 AM Ordering Location: [address] Received: 03/15/2023 02:25 PM Service Pathologist: [...] CARCINOMA (0/22) Signing Pathologist Direct Phone Line: [phone] y signed by Eb Toney MD on 03/24/2023 at 6:48 PMRe-excision of the positive margins (floor of mouth, retromolar trigone, right base of tongue) are negative. Clinical correlation is recommended for the significance of the cauterized tumor at right soft tissue margin/positive margin. ORAL CAVITYLIP AND ORAL CAVITY: INCISIONAL BX, EXCISIONAL BX, RESECTION - All Kcrpheskx4ug Edition - Protocol posted: 08/20/2021PECIMEN Procedure: Glossectomy: [...] ADDITIONAL FINDINGS Additional Findings: Epithelial hyperplasia A. 09018U. 25387R. 49595E. 91832, 48841 x 1, 42543 x 5, 82453 x 1, 44467 x 2E. 44446, 02839 x 1F. 73273E. 75814, 08087M. 51097 45033, 31068 x 1, 06839 x 1I. 47003, 16713 x 1Tongue cancerGlossectomy and bilateral neck lymph [...] cut surface. The lymph nodes and a automobile rental representative section of this gland are submitted as described below.B1-1 possible lymph node, bisectedB2-1 lymph node, bisectedB3-1 lymph node, trisectedB 4-1 lymph node, bisectedB5-automobile rental representative section of glandC. Neck, LeftPart C [...] node, sectionedC4-1 lymph node, bisectedC5-1 whole possible nodeC6-automobile rental representative section of glandD. Soft Tissue, OtherThe [...] base of tongue (yellow at tip and anterior)Y30-ojmpi 2, start of jvydradgyxV72- slice 3, continuity of kbmqxzxzcvS14- slice 4, continuity of iaxytegariH97- slice 5, continuity of qhqhkiunasC79- slice 6, continuity of vgglmemvarA74- slice 7- mass, closest deep oxlrcyB85- slice 9, Mass, with the closest left soft tissue dqwehbH67- Slice 10, automobile rental representative section of massD20- Slice 11, tumor abutting right soft culjpiQ24- D24- base of tongue, perpendicular sections, right side, with closest tumor to base of wonspfM02-S23- automobile rental representative sections of fvsmiycjxxI25- automobile rental representative sections of uvulaE. Soft Tissue, Other [...] node, bisectedF8-1 lymph node, bisectedF9-1 lymph node, nhjhbeloQ39-8 lymph node, tttbgzywP06-1 lymph node, bisectedF 12-1 lymph node, bisectedF 13-4 whole possible yqonvS32-3 whole possible nodesG. Soft Tissue, Otherspecimen received [...] lymph nodesI8-4 whole lymph nodesI9-4 whole lymph soehfO90-8 whole lymph nodesD. Soft Tissue, OtherFROZEN SECTIONSubtotal glossectomyD1-D6: Right base of tongue and anterior oropharyngeal margin, positive for malignancyReported to Dr. Wick at 11:47 AM on 03/14/2023.Reported by Dr. Arce, pathologist.E. Soft Tissue, Other Right floor of mouth: - negative for malignancy.The results was reported by Dr. Arce to Dr. Wick at 11:28 AM on 03/14/2023. G. Soft Tissue, OtherRight Retromolar trigone:-Negative for malignancy.The result was reported by Dr. Arce to Dr. Wick at 12:38 PM on 03/14/2023.H. Soft Tissue, OtherRight base of tongue margin:-Negative for malignancy.The result was reported by Dr. Arce to Dr. Wick at 12:38 PM on 03/14/2023.PerformedThe interpretation of this case included the use of immunohistochemistry or special stains.D18, C40VF44 & D2-40: xfdwchxkP37- tshhevtwO6WU18- rovhddipH31- negative I10P40- negativeControl Slides Examined: In-house known positive controls were evaluated along with the test tissue. These control slides run alongside of the patients sample show appropriate staining. Internal positive and negative controls when available are evaluated Immunohistochemistry technical testing was performed at [facility], Pathology Laboratory where it was [...] qualified to perform high complexity clinical laboratory testing.[facility], Department of Pathology, [address] [place] [address], [facility], [facility], [address] [place] [address], [facility], Department of [facility]ology, [address] [place] [address], POCT-GLUCOSE METER 2023-03-22 12:40:41 Test Item Value Reference Range Interpretation Comme nts POC-GLUCOSE METER (BEAKER) 107 mg/dL 70-110 : TESTED AT [facility] [address] [place] [address] (test code = 1538) [facility], [address]: Armed Security Professional/Techni federico ID = [id number] for TIRSO JAVIER [id number] 07:32:41 Test Item Value Reference Range Interpretation Comments MAGNESIUM (BEAKER) (test code = 2.0 mg/dL 1.6-2.6 627) Armed Security Professional ID - [id number] 07:32:41 Test Item Value Reference Range Interpretation Comments PHOSPHORUS (BEAKER) (test code = 5.2 mg/dL 2.3-4.7 H 604) Armed Security Professional ID - EOOBASIC METABOLIC [id number] 07:32:40 Test Item Value Reference Range Interpretation [...] not appl icable for dialysis patishiraz khan Armed Security Professional ID - EOOPOCT-GLUCOSE [id number] 06:26:25 Test Item Value Reference Range Interpretation Comments POC-GLUCOSE METER 84 mg/dL 70-110 : TESTED A T [facility] 6720 (BEAKER) (test code = [place], 1538) [address]: Armed Security Professional/Techni federico ID = [id number] for SEMI ENHANG CBC (HEMOGRAM ONLY)2023-03-22 06:07:07 Test Item Value [...] 0-0 (BEAKER) (test code = 413) POCT-GLUCOSE [id number] 23:51:48 Test Item Value Reference Range Interpretation Comments POC-GLUCOSE METER 127 mg/dL 70-110 H : TESTED A T [facility] 6720 (BEAKER) (test code = [facility], 1538) [address]: Armed Security Professional/Techni federico ID = [id number] for SE FADUMO GELLERE POCT-GLUCOSE [id number] 15:58:20 Test Item Value Reference Range Interpretation Comments POC-GLUCOSE METER 101 mg/dL 70-110 : TESTED A T [facility] 6720 (BEAKER) (test code = [facility], 1538) [address]: Armed Security Professional/Techni federico ID = [id number] for Al rahel, Sonali POCT-GLUCOSE [id number] 13:10:10 Test Item Value Reference Range Interpretation Comments POC-GLUCOSE METER 102 mg/dL 70-110 : TESTED A T [facility] 6720 (BEAKER) (test code = [facility], 1538) 236[address]: Armed Security Professional/Techni federico ID = [id number] for Al rahel, Sonali POCT-GLUCOSE [id number] 06:57:42 Test Item Value Reference Range Interpretation Comments POC-GLUCOSE METER 98 mg/dL 70-110 : TESTED A T [facility] 6720 (BEAKER) (test code = [facility], 1538) [address]: Armed Security Professional/Techni federico ID = [id number] for SEMI ENFADUMOE [id number] 06:09:48 Test Item Value Reference Range Interpretation Comments MAGNESIUM (BEAKER) (test code = 1.9 mg/dL 1.6-2.6 627) Armed Security Professional ID - SARAH [id number] 06:09:48 Test Item Value Reference Range Interpretation Comments PHOSPHORUS (BEAKER) (test code = 4.2 mg/dL 2.3-4.7 604) Armed Security Professional ID - SARAH WBASIC METABOLIC [id number] 06:09:47 Test Item Value Reference Range Interpretation [...] not appl icable for dialysis patien ts Armed Security Professional ID - [facility]AH [facility] (HE[facility] ONLY)2023-03-21 05:41:00 Test Item Value Reference [...] 0-0 (BEAKER) (test code = 413) POCT-GLUCOSE [id number] 02:33:24 Test Item Value Reference Range Interpretation Comments POC-GLUCOSE METER 80 mg/dL 70-110 : TESTED A T [facility] 6720 (BEAKER) (test code = [facility], 1538) 09[address]: Armed Security Professional/Techni federico ID = [id number] for Sue Brito POCT-GLUCOSE [id number] 18:37:31 Test Item Value Reference Range Interpretation Comments POC-GLUCOSE METER 84 mg/dL 70-110 : TESTED A T [facility] 6720 (BEAKER) (test code = [facility], 1538) 44[address]: Armed Security Professional/Techni federico ID = [id number] for Power macias, Angela POCT-GLUCOSE [id number] 13:00:04 Test Item Value Reference Range Interpretation Comments POC-GLUCOSE METER 91 mg/dL 70-110 : TESTED A T [facility] 6720 (BEAKER) (test code = [facility], 1538) [address]: Armed Security Professional/Techni federico ID = [id number] for Power macias, Angela [id number] 06:24:55 Test Item Value Reference Range Interpretation Comments PHOSPHORUS (BEAKER) (test code = 3.2 mg/dL 2.3-4.7 604) Armed Security Professional ID - EOOBASIC METABOLIC [id number] 06:24:54 Test Item Value Reference Range Interpretation [...] not appl icable for dialysis patien ts Armed Security Professional ID - [id number] 06:24:54 Test Item Value Reference Range Interpretation Comments MAGNESIUM (BEAKER) (test code = 1.9 mg/dL 1.6-2.6 627) Armed Security Professional ID - EOOPOCT-GLUCOSE [id number] 05:44:23 Test Item Value Reference Range Interpretation Comments POC-GLUCOSE METER 73 mg/dL 70-110 : TESTED A T [facility] 6720 (BEAKER) (test code = PAVAN Thomas [facility], 1538) [address]: Armed Security Professional/Techni federico ID = [id number] for Ramiro Pitts CBC (HEMOGRAM ONLY)2023-03-20 05:41:41 [...] 0-0 (BEAKER) (test code = 413) POCT-GLUCOSE [id number] 01:11:53 Test Item Value Reference Range Interpretation Comments POC-GLUCOSE METER 99 mg/dL 70-110 : TESTED A T [facility] 6720 (BEAKER) (test code = [facility], 1538) 10676: Armed Security Professional/Techni federico ID = [id number] for Ramiro Pitts POCT-GLUCOSE [id number] 18:05:19 Test Item Value Reference Range Interpretation Comments POC-GLUCOSE METER 141 mg/dL 70-110 H : TESTED A T [facility] 6720 (BEAKER) (test code = [facility], 1538) 564[address]: Armed Security Professional/Techni federico ID = [id number] for Ok makenna, Avery POCT-GLUCOSE [id number] 05:30:38 Test Item Value Reference Range Interpretation Comments POC-GLUCOSE METER 139 mg/dL 70-110 H : TESTED A T [facility] 6720 (BEAKER) (test code = [facility], 1538) [address]: Armed Security Professional/Techni federico ID = [id number] for Ad ams, Kimetra [id number] 02:57:20 Test Item Value Reference Range Interpretation Comments MAGNESIUM (BEAKER) (test code = 1.9 mg/dL 1.6-2.6 627) [id number] 02:57:20 Test Item Value Reference Range Interpretation Comments PHOSPHORUS (BEAKER) (test code = 3.7 mg/dL 2.3-4.7 604) BASIC METABOLIC [id number] 02:57:19 Test Item Value Reference Range Interpretation [...] 0-0 (BEAKER) (test code = 413) POCT-GLUCOSE [id number] 23:35:47 Test Item Value Reference Range Interpretation Comments POC-GLUCOSE METER 146 mg/dL 70-110 H : TESTED A T [facility] 6720 (BEAKER) (test code = [facility], 1538) [address]: Armed Security Professional/Techni federico ID = [id number] for Ad ams, Paytonetra POCT-GLUCOSE [id number] 13:10:55 Test Item Value Reference Range Interpretation Comments POC-GLUCOSE METER 98 mg/dL 70-110 : TESTED A T [facility] 6720 (BEAKER) (test code = [facility], 1538) [address]: Armed Security Professional/Techni federico ID = [id number] for NIST OR, TIFFANY [id number] 02:07:47 Test Item Value Reference Range Interpretation Comments PHOSPHORUS (BEAKER) (test code = 3.7 mg/dL 2.3-4.7 604) Armed Security Professional ID - [id number] 02:07:46 Test Item Value Reference Range Interpretation Comments MAGNESIUM (BEAKER) (test code = 1.8 mg/dL 1.6-2.6 627) Armed Security Professional ID - MARCOBASIC METABOLIC [id number] 02:07:46 Test Item Value Reference Range Interpretation [...] not appl icable for dialysis patien ts Armed Security Professional ID - MARCOCBC (HEMOGRAM ONLY)2023-03-18 01:43:23 Test [...] 0-0 (BEAKER) (test code = 413) POCT-GLUCOSE [id number] 06:11:57 Test Item Value Reference Range Interpretation Comments POC-GLUCOSE METER 116 mg/dL 70-110 H : TESTED A T [facility] 6720 (BEAKER) (test code = [place], 1538) [address]: Armed Security Professional/Techni federico ID = [id number] for IB ADAM VARGAS BASIC METABOLIC [id number] 04:24:08 Test Item Value Reference Range Interpretation [...] not appl icable for dialysis patien ts Armed Security Professional ID - [id number] 04:24:08 Test Item Value Reference Range Interpretation Comments MAGNESIUM (BEAKER) (test code = 3.9 mg/dL 1.6-2.6 H 627) Armed Security Professional ID - [id number] 04:24:08 Test Item Value Reference Range Interpretation Comments PHOSPHORUS (BEAKER) (test code = 3.1 mg/dL 2.3-4.7 604) Armed Security Professional ID - ADMINCBC (HEMOGRAM ONLY)2023-03-17 03:52:15 Test [...] 0-0 (BEAKER) (test code = 413) POCT-GLUCOSE [id number] 00:05:32 Test Item Value Reference Range Interpretation Comments POC-GLUCOSE METER 125 mg/dL 70-110 H : TESTED A [facility] 6720 ([facility]) (test code = [facility], 153) [address]: Armed Security Professional/Techni federico ID = [id number] for IB ENNEDA, EUCIA POCT-GLUCOSE [id number] 18:44:19 Test Item Value Reference Range Interpretation Comments POC-GLUCOSE METER 125 mg/dL 70-110 H : Notified RN/MD: ([facility]) (test code = TESTED AT [place] [address] 1537) [facility], [address]: Armed Security Professional/Techni federico ID = [id number] for Senia Villatoro POCT-GLUCOSE [id number] 13:09:35 Test Item Value Reference Range Interpretation Comments POC-GLUCOSE METER 108 mg/dL 70-110 : TESTED A [facility] 6720 (BEAKER) (test code = [place], 1538) [address]: Armed Security Professional/Techni federico ID = [id number] for Sh Senia worthington [id number] 05:44:01 Test Item Value Reference Range Interpretation Comments PHOSPHORUS (BEAKER) (test code = 3.4 mg/dL 2.3-4.7 604) Armed Security Professional ID - MMBASIC METABOLIC [id number] 05:44:00 Test Item Value Reference Range Interpretation [...] not appl icable for dialysis patien ts Armed Security Professional ID - [id number] 05:44:00 Test Item Value Reference Range Interpretation Comments MAGNESIUM (BEAKER) (test code = 2.6 mg/dL 1.6-2.6 627) Armed Security Professional ID - MMCBC (HEMOGRAM ONLY)2023-03-16 05:40:09 Test [...] 0-0 (BEAKER) (test code = 413) POCT-GLUCOSE [id number] 00:06:45 Test Item Value Reference Range Interpretation Comments POC-GLUCOSE METER 127 mg/dL 70-110 H : TESTED A T [facility] 6720 (BEAKER) (test code [facility], = 153) [address]: Armed Security Professional/Techni federico ID = [id number] for Balwinder Smith POCT-GLUCOSE [id number] 17:44:55 Test Item Value Reference Range Interpretation Comments POC-GLUCOSE METER 119 mg/dL 70-110 H : TESTED A T [facility] 6720 (BEAKER) (test code = [facility], 153) 267[address]: Armed Security Professional/Techni federico ID = [id number] for Senia Villatoro POCT-GLUCOSE [id number] 14:16:32 Test Item Value Reference Range Interpretation Comments POC-GLUCOSE METER 120 mg/dL 70-110 H : TESTED A T [facility] 6720 (BEAKER) (test code = [facility], 1538) [address]: Armed Security Professional/Techni federico ID = [id number] for Sh Senia worthington [id number] 05:50:48 Test Item Value Reference Range Interpretation Comments MAGNESIUM (BEAKER) (test code = 1.5 mg/dL 1.6-2.6 L 627) Armed Security Professional ID - SARAH [id number] 05:50:48 Test Item Value Reference Range Interpretation Comments PHOSPHORUS (BEAKER) (test code = 4.0 mg/dL 2.3-4.7 604) Armed Security Professional ID - SARAH WBASIC METABOLIC [id number] 05:50:47 Test Item Value Reference Range Interpretation [...] not appl icable for dialysis patien ts Armed Security Professional ID Cecilia SMITH WCBC (HEMOGRAM ONLY)2023-03-15 05:18:47 Test Item Value Reference [...] code = 413) HGB/HCT (H&H) - STAT [id number] 16:32:34 Test Item Value Reference Range Interpretation Comments HEMOGLOBIN (BEAKER) (test code = 11.2 GM/DL 12.0-15.0 L 410) HEMATOCRIT (BEAKER) (test code = 33.0 % 36.0-45.0 L 411) BLOOD GAS, [id number] 16:32:34 Test Item Value Reference Range Interpretation [...] (BEAKER) (test code = 1819) 30.0 CALCIUM, [id number] 16:32:33 Test Item Value Reference Range Interpretation Comments CALCIUM IONIZED (BEAKER) (test 1.14 mmol/L 1.12-1.27 code = 698) PH, BLOOD (BEAKER) (test code = 7.42 1810) GLUCOSE-STAT [id number] 16:32:14 Test Item Value Reference Range Interpretation Comments GLUCOSE RANDOM (BEAKER) (test code 142 mg/dL 70-110 H = 652) BLOOD GAS, [id number] 13:13:17 Test Item Value Reference Range Interpretation [...] (BEAKER) (test code = 1819) 28.0 CALCIUM, [id number] 13:13:16 Test Item Value Reference Range Interpretation Comments CALCIUM IONIZED (BEAKER) (test 1.28 mmol/L 1.12-1.27 H code = 698) PH, BLOOD (BEAKER) (test code = 7.43 1810) POTASSIUM-STAT [id number] 13:12:06 Test Item Value Reference Range Interpretation Comments POTASSIUM (BEAKER) (test code = 4.3 meq/L 3.6-5.5 379) HGB/HCT (H&H) - STAT [id number] 13:12:06 Test Item Value Reference Range Interpretation Comments HEMOGLOBIN (BEAKER) (test code = 12.8 GM/DL 12.0-15.0 410) HEMATOCRIT (BEAKER) (test code = 38.0 % 36.0-45.0 411) GLUCOSE-STAT [id number] 13:12:05 Test Item Value Reference Range Interpretation Comments GLUCOSE RANDOM (BEAKER) (test code 119 mg/dL 70-110 H = 652) SODIUM NA-STAT [id number] 13:12:05 Test Item Value Reference Range Interpretation Comments SODIUM (BEAKER) (test code = 381) 135 meq/L 136-145 L TISSUE [id number] 12:28:43Surgical Pathology Report Case: [id number] Authorizing Provider: Susanna Wick MD Collected: 03/03/2023 04:51 PM Ordering Location: [facility] Received: 03/06/2023 10:23 AM SERVICES Pathologist: Nick Banks MD Specimen: Tongue, RIGHT ANTERIOR TONSILAR PILLAR A. RIGHT ANTERIOR TONSILLAR PILLAR, BIOPSY - LYMPHOID TISSUE, NEGATIVE FOR CARCINOMA. Signing Pathologist Direct Phone Line: [phone] signed by Nick Banks MD on 03/14/2023 at 12:28 PMImmunostains for AE1/AE3 and p40 are negative.[id number], [id number], [id number] cancerA. TongueReceived fresh labeled with the patient's name, medical record number and "tongue" is a 0.6 x 0.3 x 0.2 cm red soft tissue fragment submitted in toto in A1.ALIA Sorto, JAMES (ASCP)cmPerformed.The interpretation of this case includedthe use of immunohistochemistry or special stains.Control Slides Examined: In-house known positive controls were evaluated along with the test tissue. These control slides run alongside of the patientssample show appropriate staining. Internal positive and negative controls when available are evaluated Immunohistochemistry technical testing was performed at [facility], Pathology Laboratory where it was [...] perform high complexity clinical laboratory testing.SODIUM NA-STAT [id number] 08:29:01 Test Item Value Reference Range Interpretation Comments SODIUM (BEAKER) (test code = 381) 134 meq/L 136-145 L CALCIUM, [id number] 08:29:00 Test Item Value Reference Range Interpretation Comments CALCIUM IONIZED (BEAKER) (test 1.10 mmol/L 1.12-1.27 L code = 698) PH, BLOOD (BEAKER) (test code = 7.45 1810) BLOOD GAS, [id number] 08:29:00 Test Item Value Reference Range Interpretation [...] (BEAKER) (test code = 1819) 54.0 POTASSIUM-STAT [id number] 08:27:11 Test Item Value Reference Range Interpretation Comments POTASSIUM (BEAKER) (test code = 4.4 meq/L 3.6-5.5 379) HGB/HCT (H&H) - STAT [id number] 08:27:11 Test Item Value Reference Range Interpretation Comments HEMOGLOBIN (BEAKER) (test code = 12.3 GM/DL 12.0-15.0 410) HEMATOCRIT (BEAKER) (test code = 36.0 % 36.0-45.0 411) GLUCOSE-STAT [id number] 08:27:10 Test Item Value Reference Range Interpretation Comments GLUCOSE RANDOM (BEAKER) (test code = 92 mg/dL 70-110 652) SARS-COV2/RT-PCR ([facility])2023-03-14 07:10:29 Test Item Value Reference Range Interpretation Comments SARS-COV2/RT-PCR Negative Negative The SARS-Co V-2 target (test code = nucleic acids a re not 1562100) detected in thi s specimen. Negative result [...] revoked sooner. Fact Sheet for Healthcare Providers: https://www.[employer]/Documents/Xpert%20Xpress%20SARS%20CoV-2/Fact%20Sheets/3023802%72QOTU-SHR-8%20 HEALTHCARE%20PROVIDERS%20FACT%20SHEET.pdf Fact Sheet for Healthcare Patients: https://www.[employer]/Documents/Xpert%20Xp ress%20SARS%20CoV-2/Fact%20Sheets/3023801%36RTAW-ZJF-7%20PATIENT%20FACT%20SHEET .[id number] 03:44:35 Test Item Value Reference Range Interpretation Comments MAGNESIUM (BEAKER) (test code = 1.9 mg/dL 1.6-2.6 627) Armed Security Professional ID - SARAH [id number] 03:44:35 Test Item Value Reference Range Interpretation Comments PHOSPHORUS (BEAKER) (test code = 5.0 mg/dL 2.3-4.7 H 604) Armed Security Professional LARON SMITH WBASIC METABOLIC [id number] 03:44:34 Test Item Value Reference Range Interpretation [...] not appl icable for dialysis patien ts Armed Security Professional LARON SMITH WPT/[id number] 03:35:20 Test Item Value Reference Range Interpretation [...] for patients with mechanical heart valves. SCREEN, [id number] 19:22:08 Test Item Value Reference Range Interpretation Comments TEST URINE (BEAKER) (test Negative Negative code = 583) POC-Glucose [id number] 11:56:01 Test Item Value Reference Range Interpretation Comments POC-Glucose Meter (test 95 mg/dL 70-110 : TE STED AT [facility] code = 1538) 6720 [facility], 770 30: Armed Security Professional/Techni federico ID = [id number] for Dewey Arroa tone Lab Interpretation (test Normal code = 57922-8) [facility] [id number] 11:56:01 Test Item Value Reference Range Interpretation Comments POC-GLUCOSE METER 95 mg/dL 70-110 : [facility] (BEAKER[facility] (test code = [facility], 1538) 71438: Armed Security Professional/Techni federico ID = [id number] for Marsha Petty POCT-GLUCOSE [id number] 06:17:24 Test Item Value Reference Range Interpretation Comments POC-GLUCOSE METER 160 mg/dL 70-110 H : [facility] (BEAKER[facility] (test code = [facility], 1538) 86254: Armed Security Professional/Techni federico ID = [id number] for HANG ALMAZAN [id number] 04:44:38 Test Item Value Reference Range Interpretation Comments MAGNESIUM (BEAKER) (test code = 1.9 mg/dL 1.6-2.6 627) Armed Security Professional ID - [id number] 04:44:38 Test Item Value Reference Range Interpretation Comments PHOSPHORUS (BEAKER) (test code = 5.3 mg/dL 2.3-4.7 H 604) Armed Security Professional ID - EOOBASIC METABOLIC [id number] 04:44:37 Test Item Value Reference Range Interpretation [...] 8.4-10.2 H (test code = 697) EGFR ([facility]) 115 Interpretatio n of eGFR (test code [...] not appl icable for dialysis patien ts Armed Security Professional ID - EOOPOCT-GLUCOSE [id number] 00:21:01 Test Item Value Reference Range Interpretation Comments POC-GLUCOSE METER 108 mg/dL 70-110 : TESTED A T [facility] 6720 (MyPronostic) (test code = [facility] Advebs [facility], 1538) 36209: Armed Security Professional/Techni federico ID = [id number] for HANG ALMAZAN POCT-GLUCOSE [id number] 16:05:36 Test Item Value Reference Range Interpretation Comments POC-GLUCOSE METER 120 mg/dL 70-110 H : TESTED A T [facility] 6720 (MyPronostic) (test code = [facility] Advebs [facility], 1538) 72176: Armed Security Professional/Techni federico ID = [id number] for Terrence mcginnis Sonali POCT-GLUCOSE [id number] 12:33:49 Test Item Value Reference Range Interpretation Comments POC-GLUCOSE METER 87 mg/dL 70-110 : TESTED A T [facility] 6720 (MyPronostic) (test code = [facility], 1538) 10197: Armed Security Professional/Techni federico ID = [id number] for Roe n, Sonali POCT-GLUCOSE [id number] 06:25:50 Test Item Value Reference Range Interpretation Comments POC-GLUCOSE METER 108 mg/dL 70-110 : TESTED A T [facility] 6720 (BEAKER) (test code = [facility] [place], 1538) 722[address]: Armed Security Professional/Techni federico ID = [id number] for HANG ALMAZAN [id number] 04:51:06 Test Item Value Reference Range Interpretation Comments MAGNESIUM (BEAKER) (test code = 1.6 mg/dL 1.6-2.6 627) Armed Security Professional ID - MAXWELL [id number] 04:51:06 Test Item Value Reference Range Interpretation Comments PHOSPHORUS (BEAKER) (test code = 4.4 mg/dL 2.3-4.7 604) Armed Security Professional ID - MAXWELL BBASIC METABOLIC [id number] 04:51:05 Test Item Value Reference Range Interpretation [...] (test code = 697) EGFR (BEAKER) 114 Interpretati on of eGFR (test code = [...] not appl icable for dialysis patien ts Armed Security Professional ID - MAXWELL BPOCT-GLUCOSE [id number] 00:05:50 Test Item Value Reference Range Interpretation Comments POC-GLUCOSE METER 118 mg/dL 70-110 H : TESTED A T [facility] 6720 (BEAKER) (test code = [facility], 1538) 45107: Armed Security Professional/Techni federico ID = [id number] for HANG ALMAZAN POCT-GLUCOSE [id number] 16:40:48 Test Item Value Reference Range Interpretation Comments POC-GLUCOSE METER 99 mg/dL 70-110 : TESTED A T [facility] 6720 (BEAKER) (test code = [facility], 1538) 14787: Armed Security Professional/Techni federico ID = [id number] for Rosaline Deleon POCT-GLUCOSE [id number] 12:40:11 Test Item Value Reference Range Interpretation Comments POC-GLUCOSE METER 122 mg/dL 70-110 H : TESTED A T [facility] 6720 (BEAKER) (test code = [facility], 1538) 96931: Armed Security Professional/Techni federico ID = [id number] for Sonali Walters POCT-GLUCOSE [id number] 06:26:58 Test Item Value Reference Range Interpretation Comments POC-GLUCOSE METER 93 mg/dL 70-110 : TESTED A T [facility] 6720 (BEAKER) (test code = [facility], 1538) 00009: Armed Security Professional/Techni federico ID = [id number] for HANG ZUNIGA [id number] 04:39:11 Test Item Value Reference Range Interpretation Comments MAGNESIUM (BEAKER) (test code = 1.7 mg/dL 1.6-2.6 627) Armed Security Professional ID - [id number] 04:39:11 Test Item Value Reference Range Interpretation Comments PHOSPHORUS (BEAKER) (test code = 4.6 mg/dL 2.3-4.7 604) Armed Security Professional ID - MARCOBASIC METABOLIC [id number] 04:39:10 Test Item Value Reference Range Interpretation [...] not appl icable for dialysis patien ts Armed Security Professional ID - MARCOBASIC METABOLIC [id number] 06:51:27 Test Item Value Reference Range Interpretation [...] (test code = 697) EGFR (BEAKER) 114 Interpretati on of eGFR (test code = [...] not appl icable for dialysis patien ts Armed Security Professional ID - [id number] 06:51:27 Test Item Value Reference Range Interpretation Comments MAGNESIUM (BEAKER) (test code = 1.6 mg/dL 1.6-2.6 627) Armed Security Professional ID - [id number] 06:51:27 Test Item Value Reference Range Interpretation Comments PHOSPHORUS (BEAKER) (test code = 5.1 mg/dL 2.3-4.7 H 604) Armed Security Professional ID - MARCOPOC-Glucose [id number] 06:10:39 Test Item Value Reference Range Interpretation Comments POC-Glucose Meter (test 117 mg/dL 70-110 H : TE STED AT [facility] code = 1538) 6720 [facility], 770 30: Armed Security Professional/Techni federico ID = [id number] for DARCI MONTEMAYOR Lab Interpretation (test Abnormal code = 88333-3) [facility] [id number] 06:10:39 Test Item Value Reference Range Interpretation Comments POC-GLUCOSE METER 117 mg/dL 70-110 H : [facility] (BEAKER[facility] (test code = [facility], 1538) 96402: Armed Security Professional/Techni federico ID = [id number] for TH OMPSON, BELKIS POCT-GLUCOSE [id number] 00:21:24 Test Item Value Reference Range Interpretation Comments POC-GLUCOSE METER 133 mg/dL 70-110 H : TESTED A T [facility] 6720 (BEAKER) (test code = [facility], 1538) 36295: Armed Security Professional/Techni federico ID = [id number] for TH OMPSON, BELKIS POCT-GLUCOSE [id number] 18:01:01 Test Item Value Reference Range Interpretation Comments POC-GLUCOSE METER 131 mg/dL 70-110 H : [facility] (BEAKER) (test code = [facility], 1538) 39649: Armed Security Professional/Techni federico ID = [id number] for Sa castanonJass POC-Glucose [id number] 11:46:52 Test Item Value Reference Range Interpretation Comments POC-Glucose Meter (test 86 mg/dL 70-110 : TE STED AT [facility] code = 1538) 6720 [facility], 770 30: Armed Security Professional/Techni federico ID = [id number] for Micha Gagnon Lab Interpretation (test Normal code = 21210-2) [facility] [id number] 11:46:52 Test Item Value Reference Range Interpretation Comments POC-GLUCOSE METER 86 mg/dL 70-110 : [facility] (BEAKER) (test code = [facility], 1538) 31202: Armed Security Professional/Techni federico ID = [id number] for Sanc Jass mcknight POCT-GLUCOSE [id number] 06:32:46 Test Item Value Reference Range Interpretation Comments POC-GLUCOSE METER 110 mg/dL 70-110 : [facility] (BEAKER) (test code = [facility], 1538) 93989: Armed Security Professional/Techni federico ID = [id number] for HANG ALMAZAN BASIC METABOLIC [id number] 05:38:35 Test Item Value Reference Range Interpretation [...] eGF R is based on the CKD-EPI 202 equation that d oes not use a race coefficientEsti mated GFR is not as accur ate as Creatinine Clementine robson in predicting glom erular filtration rate . Estimated GFR is not appl icable for dialysis patien ts Armed Security Professional ID - [id number] 05:38:35 Test Item Value Reference Range Interpretation Comments MAGNESIUM (BEAKER) (test code = 1.8 mg/dL 1.6-2.6 627) Armed Security Professional ID - [id number] 05:38:35 Test Item Value Reference Range Interpretation Comments PHOSPHORUS (BEAKER) (test code = 3.4 mg/dL 2.3-4.7 604) Armed Security Professional ID - DBCBC W/PLT COUNT & AUTO [id number] 05:14:51 Test Item Value Reference Range Interpretation [...] PERCENT (BEAKER) (test code = 2801) POCT-GLUCOSE [id number] 23:49:04 Test Item Value Reference Range Interpretation Comments POC-GLUCOSE METER 97 mg/dL 70-110 : [facility] 6720 [facility] (test code = [facility], 153) 83809: Armed Security Professional/Techni federico ID = [id number] for IMGUEL SHIRAZFADUMOE POCT-GLUCOSE [id number] 18:03:27 Test Item Value Reference Range Interpretation Comments POC-GLUCOSE METER 96 mg/dL 70-110 : TESTED A T [facility] 6720 (BEAKER) (test code = [facility], 153) 45036: Armed Security Professional/Techni federico ID = [id number] for BELKIS SAMPSON POCT-GLUCOSE [id number] 12:11:29 Test Item Value Reference Range Interpretation Comments POC-GLUCOSE METER 95 mg/dL 70-110 : TESTED A T [facility] 6720 (BEAKER) (test code = [facility], 1538) 96784: Armed Security Professional/Techni federico ID = [id number] for BELKIS SAMPSON POCT , [id number] 07:31:00 Test Item Value Reference Range Interpretation Comments Test Urine, POC (test Negative code = 4679506) Control line present?, POC (test Yes code = 8563687) Background clear?, POC (test code Yes = 1762076) UPT Cassette Lot #, POC (test code 022883 = 8885576) UPT Cassette Expiration Date, POC 03/19/2024 (test code = 8355069) [facility] , [id number] 07:31:00 Test Item Value Reference Range Interpretation Comments Test Urine, POC (test Negative code = 9976596) Control line present?, POC (test Yes code = 9411541) Background clear?, POC (test code Yes = 9410731) UPT Cassette Lot #, POC (test code 334165 = 8540842) UPT Cassette Expiration Date, POC 03/19/2024 (test code = 2962440) [facility] , [id number] 07:31:00 Test Item Value Reference Range Interpretation Comments Test Urine, POC (test Negative code = 1555427) Control line present?, POC (test Yes code = 6123495) Background clear?, POC (test code Yes = 3936335) UPT Cassette Lot #, POC (test code 219222 = 3880787) UPT Cassette Expiration Date, POC 03/19/2024 (test code = 5115895) [facility] , [id number] 07:31:00 Test Item Value Reference Range Interpretation Comments Test Urine, POC (test Negative code = 4394722) Control line present?, POC (test Yes code = 8721901) Background clear?, POC (test code Yes = 7332288) UPT Cassette Lot #, POC (test code 154647 = 9587387) UPT Cassette Expiration Date, POC 03/19/2024 (test code = 5806758) [facility]-Glucose [id number] 06:42:59 Test Item Value Reference Range Interpretation Comments POC-Glucose Meter (test 95 mg/dL 70-110 : TE STED AT [facility] code = 1538) [address] [place], 770 30: Armed Security Professional/Techni federico ID = [id number] for Shayy Olivarez Lab Interpretation (test Normal code = 84842-1) [facility] [id number] 06:42:59 Test Item Value Reference Range Interpretation Comments POC-GLUCOSE METER 95 mg/dL 70-110 : TESTED A T [facility] 6720 (BEAKER) (test code = [facility], 1538) 99299: Armed Security Professional/Techni federico ID = [id number] for Shayy Costello od [id number] 04:49:08 Test Item Value Reference Range Interpretation Comments PHOSPHORUS (BEAKER) (test code = 4.0 mg/dL 2.3-4.7 604) Armed Security Professional ID - ADMINBASIC METABOLIC [id number] 04:49:07 Test Item Value Reference Range Interpretation [...] not appl icable for dialysis patien ts Armed Security Professional ID - [id number] 04:49:07 Test Item Value Reference Range Interpretation Comments MAGNESIUM (BEAKER) (test code = 1.9 mg/dL 1.6-2.6 627) Armed Security Professional ID - ADMINCBC W/PLT COUNT & AUTO [id number] 04:23:38 Test Item Value Reference Range Interpretation [...] PERCENT (BEAKER) (test code = 2801) POCT-GLUCOSE [id number] 23:51:35 Test Item Value Reference Range Interpretation Comments POC-GLUCOSE METER 115 mg/dL 70-110 H : TESTED A T [facility] 6720 (BEAKER) (test code = [facility], 153) 38322: Armed Security Professional/Techni federico ID = [id number] for Shayy Bahena POCT-GLUCOSE [id number] 18:02:27 Test Item Value Reference Range Interpretation Comments POC-GLUCOSE METER 97 mg/dL 70-110 : TESTED A T [facility] 6720 (BEAKER) (test code = [facility], 153) 41118: Armed Security Professional/Techni federico ID = [id number] for JENNI PSON, BELKIS POCT-GLUCOSE [id number] 12:21:50 Test Item Value Reference Range Interpretation Comments POC-GLUCOSE METER 82 mg/dL 70-110 : TESTED A T [facility] 6720 (BEAKER) (test code = [facility], 153) 26821: Armed Security Professional/Techni federico ID = [id number] for JENNI PSON, BELKIS POCT-GLUCOSE [id number] 06:39:31 Test Item Value Reference Range Interpretation Comments POC-GLUCOSE METER 82 mg/dL 70-110 : TESTED A T [facility] 6720 (BEAKER) (test code = [facility], 153) 52156: Armed Security Professional/Techni federico ID = [id number] for Shayy Costello od [id number] 05:41:53 Test Item Value Reference Range Interpretation Comments MAGNESIUM (BEAKER) (test code = 1.9 mg/dL 1.6-2.6 627) Armed Security Professional ID - [id number] 05:41:53 Test Item Value Reference Range Interpretation Comments PHOSPHORUS (BEAKER) (test code = 4.3 mg/dL 2.3-4.7 604) Armed Security Professional ID - ADMINBASIC METABOLIC [id number] 05:41:52 Test Item Value Reference Range Interpretation [...] not appl icable for dialysis patien ts Armed Security Professional ID - ADMINCBC W/PLT COUNT & AUTO [id number] 05:18:36 Test Item Value Reference Range Interpretation [...] PERCENT (BEAKER) (test code = 2801) POCT-GLUCOSE [id number] 00:09:35 Test Item Value Reference Range Interpretation Comments POC-GLUCOSE METER 160 mg/dL 70-110 H : TESTED A T [facility] 6720 (BEAKER) (test code = [facility] [place], 1538) [address]: Armed Security Professional/Techni federico ID = [id number] for Shayy Bahena POCT-GLUCOSE [id number] 17:21:07 Test Item Value Reference Range Interpretation Comments POC-GLUCOSE METER 75 mg/dL 70-110 : TESTED A T [facility] 6720 (BEAKER) (test code = [facility], 1538) 65768: Armed Security Professional/Techni federico ID = [id number] for Sonali Harrison Screen, [id number] 15:22:58 Test Item Value Reference Range Interpretation Comments Preg Test, Ur (test code = 2112-1) Negative Negative Lab Interpretation (test code = Normal 56985-8) [facility], [id number] 15:22:58 Test Item Value Reference Range Interpretation Comments Preg Test, Ur (test code = 2112-1) Negative Negative Lab Interpretation (test code = Normal 79408-8) [facility], [id number] 15:22:58 Test Item Value Reference Range Interpretation Comments Preg Test, Ur (test code = 2112-1) Negative Negative Lab Interpretation (test code = Normal 13775-7) [facility], [id number] 15:22:58 Test Item Value Reference Range Interpretation Comments Preg Test, Ur (test code = 2112-1) Negative Negative Lab Interpretation (test code = Normal 39080-8) [facility] HospitalPREGNANCY SCREEN, [id number] 15:22:58 Test Item Value Reference Range Interpretation Comments TEST URINE (BEAKER) (test Negative Negative code = 583) POCT-GLUCOSE [id number] 17:25:51 Test Item Value Reference Range Interpretation Comments POC-GLUCOSE METER 87 mg/dL 70-110 : TESTED A T [facility] 6720 (BEAKER) (test code = [facility], 1538) 10825: Armed Security Professional/Techni federico ID = [id number] for MARK CEBALLOS POCT-GLUCOSE [id number] 12:49:55 Test Item Value Reference Range Interpretation Comments POC-GLUCOSE METER 93 mg/dL 70-110 : TESTED A T [facility] 6720 (BEAKER) (test code = [facility], 1538) 89358: Armed Security Professional/Techni federico ID = [id number] for MARK CEBALLOS COMPREHENSIVE METABOLIC [id number] 05:47:37 Test Item Value Reference Range Interpretation [...] not appl icable for dialysis patien ts Armed Security Professional ID - [id number] 05:41:52 Test Item Value Reference Range Interpretation Comments PREALBUMIN (BEAKER) (test code = 26 mg/dL 14-45 586) Armed Security Professional ID - [id number] 05:34:03 Test Item Value Reference Range Interpretation Comments PARTIAL THROMBOPLASTIN TIME 35.5 seconds 22.5-36.0 (BEAKER) (test code = 760) PROTHROMBIN TIME/[id number] 05:33:23 Test Item Value Reference Range Interpretation Comments PROTIME (BEAKER) (test code = 13.1 seconds 11.9-14.2 759) INR (BEAKER) (test code = 370) 1.05 <=5.90 RECOMMENDED COUMADIN/WARFARIN INR THERAPY RANGESSTANDARD DOSE: 2.0 - 3.0 Includes: PROPHYLAXIS for venous thrombosis, systemic embolization; TREATMENT for venous thrombosis and/or pulmonary embolus.HIGH RISK: Target INR is 2.5-3.5 for patients with mechanical heart valves.CBC W/PLT COUNT & AUTO [id number] 05:25:30 Test Item Value Reference Range Interpretation [...] code = 2801) HIV-1 ANTIGEN WITH HIV-1/2 [id number] 13:53:09 Test Item Value Reference Range Interpretation Comments HIV-1 ANTIGEN WITH HIV 1\\T\\2 Nonreactive Nonreactive ANTIBODY (2) (BEAKER) (test code = 2586) Armed Security Professional ID - ADMINHEPATITIS C [id number] 13:53:08 Test Item Value Reference Range Interpretation Comments HEPATITIS C ANTIBODY (BEAKER) Nonreactive Nonreactive (test code = 367) Armed Security Professional ID - [id number] 13:38:31 Test Item Value Reference Range Interpretation Comments PREALBUMIN (BEAKER) (test code = 30 mg/dL 1445 586) Armed Security Professional ID - ADMINXR ABDOMEN/KUB 1 VIEW [id number] 19:34:44 [facility] : 1980 Sex: FTECHNIQUE: XR ABDOMEN/KUB 1 VIEW PORTABLEINDICATION: DHT PLacement.COMPARISON: None.FINDINGS:Feeding tube tip projected over the gastric antrum. Nonobstructive bowelgas pattern. Lower pelvis is incompletely included on this examination.Supine radiographs are insensitive for detection of free intraperito nealair.IMPRESSION:Feeding tube tip projected over the gastric antrum.Electronically Signed By: Jarvis Welsh03/03/2023 19:36 CDTWorkstation Name: [id number] CHEST WITH IV [id number] 17:28:20 [facility] : 1980 Sex: FCT of [...] interval change from 01/18/2023.Electronically Signed By: Jude Calero02/25/2023 17:30 CDTWorkstation Name: [id number] NECK SOFT TISSUE WITH IV [id number] 14:07:41 [facility] : 1980 Sex: FExamination:CT NECK [...] Signed By: Natacha Mondragon02/23/2023 14:09 CDTWorkstation Name: [id number], CHEST, WITH [id number] 07:29:00 Unlisted Reason for Exam - Click Yes and Enter Reason Below->No [facility] : 1980 Sex: FFINAL REPORT [...] Nicholas MDReport Verified Da te/Time: 01/20/2023 07:29:13 [id number] 05:13:48 Test Item Value Reference Range Interpretation Comments MAGNESIUM (BEAKER) (test code = 1.7 mg/dL 1.6-2.6 627) Armed Security Professional ID - [id number] 05:13:48 Test Item Value Reference Range Interpretation Comments PHOSPHORUS (BEAKER) (test code = 4.1 mg/dL 2.3-4.7 604) Armed Security Professional ID - MMBASIC METABOLIC [id number] 05:13:47 Test Item Value Reference Range Interpretation [...] not appl icable for dialysis patien ts Armed Security Professional ID - MMBASIC METABOLIC [id number] 06:42:56 Test Item Value Reference Range Interpretation [...] eGFR (test code = mL/min/1.73 values Stage D escription 1092) sq m Result G1 Ella l [...] not appl icable for dialysis patien ts [employer] Professional ID - [id number] 06:42:56 Test Item Value Reference Range Interpretation Comments MAGNESIUM (BEAKER) (test code = 1.8 mg/dL 1.6-2.6 627) Armed Security Professional ID - [id number] 06:42:56 Test Item Value Reference Range Interpretation Comments PHOSPHORUS (BEAKER) (test code = 4.0 mg/dL 2.3-4.7 604) Armed Security Professional ID - ADMINVITAMIN [id number] 06:39:31 Test Item Value Reference Range Interpretation Comments VITAMIN B12 (BEAKER) (test code = 341 pg/mL 213-816 774) Armed Security Professional ID - ADMINIRON, TIBC, % SAT. (WITHOUT FERRITIN)2023-01-19 06:11:34 Test Item Value Reference Range Interpretation Comments IRON (BEAKER) (test code = 547) 22.0 ug/dL 40.0-160.0 L TOTAL IRON BINDING CAPACITY 394 ug/dL 250-450 (BEAKER) (test code = 769) IRON % SATURATION (2) (BEAKER) 6 % 20-55 L (test code = 2590) [employer] Security Professional ID - [id number] 06:40:41 Test Item Value Reference Range Interpretation Comments MAGNESIUM (BEAKER) 1.5 mg/dL 1.6-2.6 L Specimen slightly (test code = 627) hemolyzed Armed Security Professional ID - SARAH [id number] 06:40:41 Test Item Value Reference Range Interpretation Comments PHOSPHORUS (BEAKER) 3.6 mg/dL 2.3-4.7 Specimen slightly (test code = 604) hemolyzed Armed Security Professional ID - SARAH WCOMPREHENSIVE METABOLIC [id number] 06:40:41 Test Item Value Reference Range Interpretation [...] not appl icable for dialysis patien ts Armed Security Professional ID - SARAH WCBC W/PLT COUNT & AUTO [id number] 05:43:39 Test Item Value Reference Range Interpretation [...] PERCENT (BEAKER) (test code = 2801) Ethanol [id number] 02:25:00 Test Item Value Reference Range Interpretation Comments Ethanol (test code 176 mg/dL The pharm acological = ETOH) response to blo od alcohol levels mayvary from individual to i ndividual. The fatal ginna ntrationhas been reported t o be >400mg/dL. HCG, Serum Quant (LAB)2022-05-12 22:56:00 Test Item Value Reference Range Interpretation Comments HCG, Serum Quant < 2.60 mIU/mL < 2.6Expec mamie (LAB) (test code = ValuesNon - HCG) Females (Age 17 -54) < 4.2 mIU/mLPost Menopausal Fema les (Age >41) 1. 8-10.1 mIU/mL Complete Blood Count Auto [id number] 22:56:00 Test Item Value Reference Range Interpretation [...] code = NRBCP) 0 % Comprehensive Metabolic [id number] 22:56:00 Test Item Value Reference Range Interpretation [...] 106 U/L 46-116 N = ALP) Ethanol [id number] 22:56:00 Test Item Value Reference Range Interpretation Comments Ethanol (test code 242 mg/dL The pharm acological = ETOH) response to blo od alcohol levels mayvary from individual to i ndividual. The fatal ginna ntrationhas been reported t o be >400mg/dL. Manual Differential, [id number] 22:56:00 Test Item Value Reference Range Interpretation [...] 1+ None Seen A Coronavirus PCR, COVID19 [id number] 22:52:00 Test Item Value Reference Range Interpretation Comments Coronavirus PCR, For use under Emergency COVID19 Rapid (test Use Authorization (EUA) code = SARSCOV2) only. Coronavirus PCR, Reference Range: COVID19 Rapid (test Negative code = EMFAGST75.1) SARS-CoV-2 PCR Result: Negative by RT-PCR (test code = SARS-CoV-2 PCR Result:) COVID-19 Status: AsymptomaticUA, Urinalysis Rflx [id number] 22:52:00 Test Item Value Reference Range Interpretation Comments Color,Urine (test code = UCOL) Yellow Yellow Clarity,Urine (test code = Clear Clear UCLAR) Ph, Urine (test code = UPH) 6.0 5.0-9.0 N Specific [place],Urine (test 1.020 1.005-1.030 N code = USG) [...] A code = ULEU) UF REFLEXUF REFLEXUrine [id number] 22:52:00 Test Item Value Reference Range Interpretation Comments RBC,Urine (test code = URBCUF) 0-2 /HPF 0-2 WBC,Urine (test code = UWBCUF) 0-5 /HPF 0-5 Epithelial Cell,Urine (test 0-5 /HPF 0-5 code = UECUF) Casts,Urine (test code = 0-5 /LPF None Seen UCASTUF) Bacteria,Urine (test code = None Seen /hpf None Seen UBACTUF) UF REFLEXUF REFLEXDrug Screen,[id number] 22:52:00 Test Item Value Reference Range Interpretation [...]
--- NOTE | 2023-04-01 20:59 | ER ---
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 ;Mucous plug in tracheostomy tube Presentation: 04/01 19:56 Chief complaint: Chief complaint: EMS states: 43 year old female reports difficulty ha1 breathing. she has a tracheostomy that was put in place three weeks ago. when we arrived we suctioned her tracheostomy and she felt better. 19:56 Coronavirus screen: Vaccine status: Patient reports receiving the 2nd dose of the covid ha1 vaccine. moderna. Ebola Screen: No symptoms or risks identified at this time. Initial Sepsis Screen: Does the patient meet any 2 criteria? No. Patient's initial sepsis screen is negative. Does the patient have a suspected source of infection? No. Patient's initial sepsis screen is negative. Risk Assessment: Do you want to hurt yourself or someone else? Patient reports no desire to harm self or others. Onset of symptoms was April 01, 2023. 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 - Social history:: Smoking status: unknown. - Family history:: not pertinent. Vital Signs: 19:56 BP 102 / 83; Pulse 93; Resp 20 S; Pulse Ox 100% on R/A; Weight 57.15 kg; Pain 8/10; ha1 19:56 Pain Scale: Adult ha1 ED Course: 19:55 Patient arrived in ED. vc1 19:55 Sal Gentile MD is Attending Physician. sp4 20:24 Triage completed. ha1 Administered Medications: No medications were administered Outcome: 20:59 Discharge ordered by MD. sp4 21:07 Patient left the ED. ll1 Signatures: Saira Suero RN RN ll1 Alee Roldan RN RN vc1 Arabella Selby, RN RN ha1 Sal Gentile MD MD sp4
--- NOTE | 2023-04-01 20:59 | EDPHYS ---
Physician Documentation [facility] Name: Brii Garcia Age: 43 yrs Sex: Female : 1980 Arrival Date: 04/01/2023 Time: 19:25 Bed 14 Private MD: ED Physician Sal Gentile HPI: 04/01 19:56 This 43 yrs old Black Female presents to ER via Unassigned with complaints of dyspnea, sp4 tracheostomy care. 21:00 43-year-old female with history of squamous cell carcinoma of the tongue history of sp4 recent tongue resection and tracheostomy placement at [facility] presents with EMS for difficulty breathing. Patient reports her home suction is not functioning and she could not suction her tracheostomy. . Patient is well familiar to me from the previous visit here where I personally exchange her tracheostomy for size 8 cuffless tracheostomy tube with internal cannula. Historical: - Allergies: 20:24 No Known Allergies; ha1 - PMHx: 20:24 Squamous cell carcinoma of tongue; ha1 - PSHx: 20:24 Carcinoma removed; G tube placement; tracheostomy; ha1 - Immunization history:: Adult Immunizations unknown. - Social history:: Smoking status: unknown. - Family history:: not pertinent. ROS: 21:00 Constitutional: Negative for fever, chills, and weight loss, positive for difficulty sp4 breathing and tracheostomy problem ENT: Negative for injury, pain, and discharge, positive for difficulty breathing and tracheostomy problem 21:00 All other systems are negative. Exam: 21:00 Constitutional: This is a well developed, well nourished patient who is awake, alert, sp4 patient is moderately physically deconditioned female with tracheostomy in place arrives with EMS. Head/Face: Normocephalic, atraumatic. Patient has bilateral healing neck incisions Eyes: Pupils equal round and reactive to light, extra-ocular motions intact. Lids and lashes normal. Conjunctiva and sclera are not injected. Cornea within normal limits. Periorbital areas with no swelling, redness, or edema. ENT: Nares patent. No nasal discharge, no septal abnormalities noted. Tympanic membranes are normal and external auditory canals are clear. Patient has signs of recent partial tongue resection also tracheostomy with internal cannula that contains mucous plug/ mucous plug was cleaned out and cannula was irrigated by respiratory therapy. Neck: Trachea midline, no thyromegaly or masses palpated, tracheostomy tube in place with tracheostomy cannula mucous plug, bilateral neck incisions and healing stages from recent surgery Chest/axilla: Normal chest wall appearance and motion. Nontender with no deformity. No lesions are appreciated. Cardiovascular: Regular rate and rhythm with a normal S1 and S2. No gallops, murmurs, or rubs. Normal PMI, no JVD. No pulse deficits. Respiratory: Lungs have equal breath sounds bilaterally, clear to auscultation and percussion. No rales, rhonchi or wheezes noted. No increased work of breathing, no retractions or nasal flaring. Abdomen/GI: Soft, non-tender, with normal bowel sounds. No distension or tympany. No guarding or rebound. No evidence of tenderness throughout. Back: No spinal tenderness. No costovertebral tenderness. Skin: Warm, dry with normal turgor. Normal color with no rashes, no lesions, and no evidence of cellulitis. MS/ Extremity: Pulses equal, no cyanosis. Neurovascular intact. Full, normal range of motion. Neuro: Awake and alert, GCS 15, oriented to person, place, time, and situation. Cranial nerves II-XII grossly intact. Motor strength 5/5 in all extremities. Sensory grossly intact. Psych: Awake, alert, with orientation to person, place and time. Behavior, mood, and affect are within normal limits Vital Signs: 19:56 BP 102 / 83; Pulse 93; Resp 20 S; Pulse Ox 100% on R/A; Weight 57.15 kg; Pain 8/10; ha1 19:56 Pain Scale: Adult ha1 MDM: 20:33 Patient medically screened. sp4 21:00 Differential Diagnosis altered mental status. Data reviewed: vital signs, nurses notes, sp4 EMS record, old medical records. ED course: Patient's tracheostomy was clean tracheostomy cannula was irrigated and patient was provided replacement tracheostomy cannula. Patient felt improved and reported she would like to go home. Patient discharged home in stable condition she is able to ambulate unassisted. . Administered Medications: No medications were administered Disposition Summary: 04/01/23 20:59 Discharge Ordered Location: Home sp4 Problem: new sp4 Symptoms: have improved sp4 Condition: Stable sp4 Diagnosis - Tracheostomy cannula occlusion with mucous, difficulty breathing secondary to sp4 tracheostomy. - Mucous plug in tracheostomy tube sp4 Followup: sp4 - With: Private Physician - When: 7 - 10 days - Reason: Recheck today's complaints Discharge Instructions: - Discharge Summary Sheet sp4 - Tracheostomy, Care After sp4 Forms: - Patient Portal Instructions sp4 Signatures: Arabella Selby RN RN ha1 Sal Gentile MD MD sp4
[2023-04-01 21:29] VITALS: BP 102/83; O2SAT 100
== END 2023-04-01 21:07 | disposition home or self-care (01) ==
LOC: ER 19:25
DX: J95.03 Malfunction of tracheostomy stoma (principal); R06.00 Dyspnea, unspecified; Z85.810 Personal history of malignant neoplasm of tongue
CPT/HCPCS: 99282

== ENCOUNTER 2023-04-03 17:49 | Emergency (ER) | payer OTHER ==
--- OUTSIDE RECORDS SUMMARY | 2023-04-03 17:58 | XMS REPORT | Continuity of Care Document ---
:1980 Author Organization [facility] t Address [address] [facility] [address] [place] [address] Care Team Providers Name Role Phone SUSANNA WICK Attending Clinician Unavailable YENIFER MALLOY Attending Clinician Unavailable CARLOS GRAJEDA Attending Clinician Unavailable Carlos Grajeda MD Attending Clinician [phone] Jose Snyder MD Attending Clinician Demetrius Dugan MD Attending Clinician Shantanu KHALIL, Yash Maurer Attending Clinician [phone] Alvin Alcala Attending Clinician Unavailable Maryann Mclean MD Attending Clinician Susanna Wick MD Attending Clinician Abdoulaye Johnson MD Attending Clinician ABDOULAYE JOHNSON Attending Clinician Unavailable Eloisa XIE, Gypsy Attending Clinician Unavailable Yenifer Malloy Attending Clinician Aruna Packer LMSW Attending Clinician Unavailable Prabha Narvaez Attending Clinician [phone] PRABHA WINN Attending Clinician Unavailable Yolanda KHALIL, Mindy Cobb Attending Clinician [phone] Attending Clinician Unavailable Judit Lau Attending Clinician Meño KHALIL, Mariaa Vitale Attending Clinician Kimberli Sierra MD Attending Clinician KIMBERLI SIERRA Attending Clinician Unavailable Chika Rosa Attending Clinician Unavailable SUSANNA WICK Admitting Clinician Unavailable JUDIT LAU Admitting Clinician Unavailable Payers Payer Name Policy Type Policy Number Effective Date Expiration Date S ource [place] [id number] 2022 00:00:00 Problems Condition Condition Condition Status Onset Resolution Last Treating Co mments Source Name Details Category Date Date Treatment Clinician Date 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 Oral phase Oral phase Disease Recurre [facility] dysphagia dysphagia nce - [facility] 00:00: Medical 00 [place] Oropharyng Oropharyng Disease Active C HI St [...] St ONE -20 [facility] 00:00: Medical 00 [place] No Known DA Active [facility] 05-12 Allergie 00:00: s 00 NO KNOWN Allergy Active [facility] Family History Family Member Diagnosis Comments Start Date Stop Date Source Natural father Lung cancer [facility] Maternal aunt Cancer [facility] Maternal uncle Prostate cancer [facility] Maternal uncle Kidney failure [facility] Natural mother Stomach cancer [facility] Social History Social Habit Start Date Stop Date Quantity Comments Source History of tobacco Cigarette Smoker [facility] use Medical [facility] History [facility] Transport [facility]-Med Medical Center Alcohol intake 2023-03-08 2023-03-08 Ex-drinker [facility] 00:00:00 00:00:00 (finding) Medical Center Exposure to 2023-02-22 2023-03-[address] [facility] [address] [facility] SARS-CoV-2 (event) 00:00:00 02:06:00 Medica l Center History [facility] 2023-03-04 2023-03-[address] [facility] Transport Med 00:00:00 00:00:[address] History [facility] 2023-03-04 2023-03-[address] [facility] Housing Unable to 00:00:00 00:00:00 Medical Center Pay History [facility] 2023-03-04 2023-03-[address] [facility] Places 00:00:00 00:00:00 Medical Ce nter Lived History [facility] 2023-03-04 2023-03-[address] [facility] Homeless 00:00:00 00:00:00 Medical Center Last Year Cigarettes smoked 2023-02-23 2023-02-23 [facility] current (pack per 00:00:00 00:00:00 Medical Center day) - Reported Cigarette 2023-02-23 2023-02-[address] [facility] pack-years 00:00:00 00:00:00 Medical Center Tobacco use and 2023-02-23 2023-02-23 Smokeless tobacco [facility] exposure 00:00:00 00:00:00 non-user Medical Center Alcohol Comment 2023-01-18 2023-01-18 every other week, [facility] 00:00:00 00:00:00 1 can [facility] Center Sex Assigned At [birth year] F [...] (5 mg [facility] solution 07:57: total) by [facility] 54 mouth Center every 4 (four) hours as needed for Pain. morphine 10 2022-0 Yes 5mg Take 2.[address] mg/5 mL 7-01 mLs (5 mg [facility] solution 07:57: total) by [facility] 54 mouth Center every 4 (four) hours as needed for Pain. morphine 10 2022-0 Yes 5mg Take 2.[address] mg/5 mL 7-01 mLs (5 mg [facility] solution 07:57: total) by [facility] 54 mouth Center every 4 (four) [...] (5 mg [facility] solution 13:57: total) by [facility] 48 mouth Center every 4 (four) hours as needed for Pain. miscellaneo Yes Oral [facility] 6-24 suction [facility] supply Misc 00:00: machine. Ia dical 00 Center miscellaneo [address] [facility] 6-24 suction [facility] supply Misc 00:00: machine. Me dical 00 Center miscellaneo [address] [facility] 6-24 suction [facility] supply Misc 00:00: machine. Ia dical 00 Center miscellaneo [address] [facility] 6-24 suction [facility] supply Misc 00:00: machine. Ia dical 00 Center miscellaneo [address] [facility] 6-24 suction [facility] supply Misc 00:00: machine. Ia dical 00 Center methadone Yes Cancer 2mg Take [address] (DOLOPHINE) 6-23 associated (2 mg L ukes 5 mg/5 mL 00:00: pain total) by [facility] ical solution 00 mouth Center every 12 (twelve) hours. lactulose 0 Yes 20g [id number] Take [address] (CHRONULAC) 6-23 [id number] mLs (20 g [facility]ukes 10 gram/15 00:00: 3D total) by Ia dical mL solution 00 mouth 3 Cente [...] 12 (twelve) hours. lactulose 3-0 Yes 20g Q.[id number] Take [address] (CHRONULAC) 6-23 [id number] mLs (20 g [facility]ukes 10 gram/15 00:00: 3D total) by Ia dical mL solution 00 mouth 3 Cente [...] 12 (twelve) hours. lactulose 3-0 Yes 20g Q.[id number] Take [address] (CHRONULAC) 6-23 [id number] mLs (20 g [facility]ukes 10 gram/15 00:00: 3D total) by Ia dical mL solution 00 mouth 3 Cente [...] 12 (twelve) hours. lactulose 2023-0 Yes 20g Q.[id number] Take [address] (CHRONULAC) 6-23 [id number] mLs (20 g [facility]ukes 10 gram/15 00:00: [...] 12 (twelve) hours. lactulose 3-0 Yes 20g Q.[id number] Take [address] (CHRONULAC) 6-23 [id number] mLs (20 g [facility]ukes 10 gram/15 00:00: 3D total) by Ia dical mL solution 00 mouth 3 Cente r (three) times daily. viscous 3-0 Yes 5mL Swish and [facility] t lidocaine 6-23 spit 5 mLs Luke s 2% (VISCOUS 00:00: every 6 Med ical LIDOCAINE) 00 (six) Center 2 % Soln hours as mucosal needed. solution lactulose 2022-0 Yes 20g Q.[id number] Take [address] (CHRONULAC) 6-23 [id number] mLs (20 g [facility]ukes 10 gram/15 00:00: 3D total) by Ia dical mL solution 00 mouth 3 Cente [...] St -acetaminop 5-19 05-19 mouth [facility]ukes hen ([facility] :54: 00:00 every 6 Med ical 7.5-325) 24 :00 (six) Center 7.5-325 mg hours as per tablet needed for Pain (kimberlyn pain) Liquid form. HYDROcodone 2022- No Take by I St -acetaminop 5-19 05-19 mouth [facility] hen ([facility] 09:54: 00:00 every 6 Med ical 7.5-325) 24 :00 (six) Center 7.5-325 mg hours as per tablet needed for Pain (kimberlyn pain) Liquid form. HYDROcodone 2022- No Take by I St -acetaminop 5-19 05-19 mouth [facility] hen ([facility] 09:54: 00:00 every 6 Med ical 7.5-325) 24 :00 (six) Center 7.5-325 mg hours as per tablet needed for Pain (kimberlyn pain) Liquid form. HYDROcodone 2022- No Take by I St -acetaminop 5-19 05-19 mouth [facility] 09:[facility] 00:00 every 6 Med ical 7.5-325) [...] St -acetaminop 5-19 05-19 mouth [facility] 09[facility]: 00:00 every 6 Med ical 7.5-325) [...] kg Heart rate 2023-03-13 11:21:03 77 /min [facility] Body temperature 2023-03-13 11:21:03 36.78 Margi [facility] Respiratory rate 2023-03-13 11:21:03 17 /min [facility] Oxygen saturation in 2023-03-13 11:21:03 98 /min [facility] Arterial blood by Medical Ce nter Pulse oximetry Systolic blood 2023-03-13 11:20:30 97 mm[Hg] [facility] Diastolic blood 2023-03-13 11:20:30 68 mm[Hg] [facility] Heart rate 2023-03-10 07:45:31 75 /min [facility] Respiratory rate 2023-03-10 07:45:31 16 /min [facility] Oxygen saturation in 2023-03-10 07:45:31 100 /min [facility] Arterial blood by Medical Ce nter Pulse oximetry Body temperature 2023-03-10 07:44:56 36.94 Margi [facility] Systolic blood 2023-03-10 07:44:15 119 mm[Hg] [facility] Diastolic blood 2023-03-10 07:44:15 86 mm[Hg] [facility] Heart rate 2023-03-09 11:34:32 74 /min [facility] Respiratory rate 2023-03-09 11:34:32 18 /min [facility] Oxygen saturation in 2023-03-09 11:34:32 99 /min [facility] Arterial blood by Medical Ce nter Pulse oximetry Body temperature 2023-03-09 11:34:02 36.61 Margi [facility] Systolic blood 2023-03-09 11:33:45 124 mm[Hg] [facility] Diastolic blood 2023-03-09 11:33:45 90 mm[Hg] [facility] Systolic blood 2023-03-08 10:30:00 136 mm[Hg] [facility] Diastolic blood 2023-03-08 10:30:00 100 mm[Hg] [facility] Heart rate 2023-03-08 10:30:00 64 /min [facility] Respiratory rate 2023-03-08 10:30:00 11 /min [facility] Oxygen saturation in 2023-03-08 10:30:00 99 /min [facility] Arterial blood by Medical Ce nter Pulse oximetry Body temperature 2023-03-08 09:54:00 36 Margi [facility] Body height 2023-03-03 12:40:00 152.4 cm [facility] Body weight 2023-03-03 12:40:00 54.885 kg [facility] BMI 2023-03-03 12:40:00 23.63 kg/m2 [facility] Body height 2023-02-28 14:00:00 154.9 cm [facility] Body weight 2023-02-28 14:00:00 56.246 kg [facility] BMI 2023-02-28 14:00:00 23.43 kg/m2 [facility] Systolic blood 2023-02-24 08:13:00 120 mm[Hg] [facility] Diastolic blood 2023-02-24 08:13:00 97 mm[Hg] [facility] Heart rate 2023-02-24 08:13:00 88 /min [facility] Body height 2023-02-24 08:13:00 154.9 cm [facility] Body weight 2023-02-24 08:13:00 56.337 kg [facility] BMI 2023-02-24 08:13:00 23.47 kg/m2 [facility] Oxygen saturation in 2023-02-24 08:13:00 100 /min [facility] Arterial blood by Medical Ce nter Pulse oximetry Body temperature 2023-02-23 08:02:00 37 Margi [facility] Systolic blood 2023-01-20 07:55:00 136 mm[Hg] [facility] Diastolic blood 2023-01-20 07:55:00 82 mm[Hg] [facility] Heart rate 2023-01-20 07:55:00 71 /min [facility] Body temperature 2023-01-20 07:55:00 36.44 Margi [facility] Respiratory rate 2023-01-20 07:55:00 18 /min [facility] Oxygen saturation in 2023-01-20 07:55:00 100 /min [facility] Arterial blood by Medical Ce nter Pulse oximetry Systolic blood 2023-01-19 12:52:00 128 mm[Hg] [facility] Diastolic blood 2023-01-19 12:52:00 85 mm[Hg] [facility] Heart rate 2023-01-19 12:52:00 66 /min [facility] Body temperature 2023-01-19 12:52:00 36.72 Margi [facility] Respiratory rate 2023-01-19 12:52:00 18 /min [facility] Oxygen saturation in 2023-01-19 12:52:00 100 /min [facility] Arterial blood by Medical Ce nter Pulse oximetry Body height 2023-01-18 04:00:00 154.9 cm [facility] Body weight 2023-01-18 04:00:00 57.561 kg [facility] BMI 2023-01-18 04:00:00 23.98 kg/m2 [facility] Procedures Procedure Date / Time Performing Clinician Source Performed GLOSSECTOMY, TOTAL 2023-03-14 07:30:00 Susanna Wick [facility] DISSECTION, NECK, RADICAL 2023-03-14 07:30:00 Susanna Wick [facility] SKIN FLAP PROCEDURE, 2023-03-14 07:30:00 Vinh Alcocer [facility] FREE FLAP PROCEDURE, 2023-03-14 07:30:00 Vinh Alcocer [facility] LOWER EXTREMITY, WITH Medical Ce nter MICROVASCULAR ANASTOMOSIS FLAP PROCEDURE, MUSCLE, 2023-03-14 07:30:00 Vinh Alcocer [facility] CREATION, FLAP, ROTATION 2023-03-14 07:30:00 Vinh Alcocer [facility] POCT-GLUCOSE METER 2023-03-13 11:44:00 Susanna Wick [facility] POCT-GLUCOSE METER 2023-03-13 06:05:00 [facility]OL[facility] 2023-03-13 03:53:00 Cayden [facility] MAGNESIUM 2023-03-13 03:53:00 [facility] 2023-03-13 03:53:00 [facility] POCT-[facility]UCOSE METER 2023-03-13 00:08:00 Susanna Wick [facility] POCT-GLUCOSE METER 2023-03-12 15:54:00 Susanna Wick [facility] POCT-GLUCOSE METER 2023-03-12 12:22:00 Susanna Wick [facility] POCT-GLUCOSE METER 2023-03-12 06:14:00 Susanna Wick [facility] BASIC METABOLIC PANEL 2023-03-12 03:31:00 Cayden [facility] MAGNESIUM 2023-03-12 03:31:00 [facility] 2023-03-12 03:31:00 [facility] POCT-GLUCOSE METER 2023-03-11 23:54:00 Susanna Wick [facility] POCT-GLUCOSE METER 2023-03-11 16:29:00 [facility] POCT-GLUCOSE METER 2023-03-11 12:28:00 [facility] POCT-GLUCOSE METER 2023-03-11 06:03:00 Susanna Wick [facility] BASIC METABOLIC PANEL 2023-03-11 04:02:00 [facility]23-03-11 04:02:00 [facility]den [facility] PHOSPHORUS 2023-03-11 04:02:00 [facility] BASIC METABOLIC PANEL 2023-03-10 06:07:00 Cayden [facility] MAGNESIUM 2023-03-10 06:07:00 [facility] PHOSPHORUS 2023-03-10 06:07:00 [facility] POCT-GLUCOSE METER 2023-03-10 05:58:00 Susanna Wick [facility] POCT-GLUCOSE METER 2023-03-09 23:19:00 [facility] POCT-GLUCOSE METER 2023-03-09 17:49:00 Susanna Wick [facility] POCT-GLUCOSE METER 2023-03-09 11:35:00 Susanna Wick [facility] POCT-GLUCOSE METER 2023-03-09 06:08:00 Susanna Wick [facility] CBC W/PLT COUNT & AUTO 2023-03-09 04:54:[address] [facility] BASIC METABOLIC PANEL 2023-03-09 04:54:00 Cayden [facility] MAGNESIUM 2023-03-09 04:54:00 [facility]den [facility] PHOSPHORUS 2023-03-09 04:54:00 [facility]den [facility] ABORH, MANUAL 2023-03-09 04:54:00 [facility] CBC W/PLT COUNT & AUTO 2023-03-09 04:54:[address] [facility] POCT-GLUCOSE METER 2023-03-08 23:36:00 [facility] POCT-GLUCOSE METER 2023-03-08 17:43:00 [facility] POCT-GLUCOSE METER 2023-03-08 11:29:00 Susanna Wick [facility] INSERTION, GASTROSTOMY 2023-03-08 07:55:00 Jose Snyder [facility] TUBE, LAPAROSCOPIC Medical Cente r POCT , URINE 2023-03-08 07:31:00 Sofie Blackwood [facility] TYPE AND SCREEN, 2023-03-08 07:28:00 Jose Snyder [facility] POCT-GLUCOSE METER 2023-03-08 05:51:00 [facility] CBC W/PLT COUNT & AUTO 2023-03-08 03:29:00 [facility] METABOLIC PAN[facility] 2023-03-08 03:29:00 Cayden [facility] MAGNESIUM 2023-03-08 03:29:00 [facility] 2023-03-08 03:29:00 [facility] CBC W/PLT COUNT & AUTO 2023-03-08 03:29:00 Lito Hernandez CH, I [facility] DIFFERENTIAL [facility] POCT-GLUCOSE METER 2023-03-07 23:30:00 [facility] POCT-GLUCOSE METER 2023-03-07 17:42:00 [facility] POCT-GLUCOSE METER 2023-03-07 12:05:00 [facility] POCT-GLUCOSE METER 2023-03-07 06:28:00 [facility] CBC W/PLT COUNT & AUTO 2023-03-07 04:54:00 [facility]OLIC PANEL 2023-03-07 04:54[facility] 2023-03-07 04:54:00 CaydenZak [facility] PHOSPHORUS 2023-03-07 04:54:00 [facility] CBC W/PLT COUNT & AUTO 2023-03-07 04:54:00 Lito Hernandez CH, I [facility] DIFFERENTIAL [facility] POCT-GLUCOSE METER 2023-03-06 23:58:00 Susanna Wick [facility] POCT-GLUCOSE METER 2023-03-06 17:09:00 Susanna Wick [facility] SCREEN, URINE 2023-03-06 14:44:00 Jose Snyder [facility] POCT-GLUCOSE METER 2023-03-05 16:54:00 [facility] POCT-GLUCOSE METER 2023-03-05 12:26:00 [facility] CBC W/PLT COUNT & AUTO 2023-03-05 05:07:00 Chadd Clemente [facility] COMPREHENSIVE METABOLIC 2023-03-05 05:07:00 Chadd Clemente [facility] PANEL [facility] PREALBUMIN 2023-03-05 05:07:00 Chadd Clemente [facility] APTT 2023-03-05 05:07:00 Chadd Clemente [facility] PROTHROMBIN TIME/INR 2023-03-05 05:07:00 Chadd Clemente [facility] CBC W/PLT COUNT & AUTO 2023-03-05 05:07:00 Chadd Clemente [facility] HC LAB HIV-1 AG W/HIV-1&2 2023-03-04 12:31:00 Fall, Nakul Justice [facility] HEPATITIS C ANTIBODY 2023-03-04 12:31:00 Fall, Nakul Justice [facility] PREALBUMIN 2023-03-04 12:31:00 Nakul Edmond [facility] XR ABDOMEN/KUB 1 VIEW 2023-03-03 18:48:00 Rick Ball [facility] LARYNGOSCOPY, WITH BIOPSY 2023-03-03 16:15:00 Susanna Wick [facility] LARYNGOSCOPY, WITH BIOPSY 2023-03-03 14:48:00 Susanna Wick [facility] POCT , URINE 2023-03-03 13:08:00 Maryann Mclean [facility] CT CHEST WITH IV CONTRAST 2023-02-23 12:27:[address] [facility] CT NECK SOFT TISSUE WITH 2023-02-23 12:27:31 Prabha Winn CH I [facility] IV CONTRAST [facility] XT NORMAL BLOOD (TEMPUS) 2023-02-23 10:54:00 Carlos Grajeda [facility] BASIC METABOLIC PANEL 2023-01-20 04:17:00 Mariaa Wilder [facility] MAGNESIUM 2023-01-20 04:17:00 [facility]23-01-20 04:17:00 [facility] BAS[facility] METABOLIC PANEL 2023-01-19 05:08:00 Mariaa Wilder [facility] MAGNESIUM 2023-01-19 05:08:00 Mariaa Wilder [facility] PHOSPHORUS 2023-01-19 05:08:00 [facility] VITAMIN B12 2023-01-19 05:08:00 Meño [facility] IRON, TIBC, % SAT. 2023-01-19 05:08:00 Mariaa Wilder [facility] (WITHOUT FERRITIN) Medical Cente r CT CHEST WITH IV CONTRAST 2023-01-18 14:51:00 Cesia Lau [facility] CBC W/PLT COUNT & AUTO 2023-01-18 05:18:[address]so [place] [facility] COMPREHENSIVE METABOLIC 2023-01-18 05:18:[address] [facility] MAGNESIUM 2023-01-18 05:18:[address] [facility] PHOSPHORUS 2023-01-18 05:18:00 [facility] CBC W/PLT COUNT & AUTO 2023-01-18 05:18:00 Shanae Laualfonso H[facility] Plan of Care Planned Activity Planned Date [...] Medica l Center cervix (procedure) [code = 938252610] Future Scheduled 2019-04-[address] [facility] Test 00:00:00 malignant neoplasm of Medica l Center cervix (procedure) [code = 884530423] Future Scheduled 2019-04-[address] [facility] Test 00:00:00 malignant neoplasm of Medica l Center cervix (procedure) [code = 829027299] Future Scheduled 2019-04-[address] [facility] Test 00:00:00 malignant neoplasm of Medica l Center cervix (procedure) [code = 827828092] Future Scheduled 2019-04-[address] Test 00:00:00 malignant neoplasm of Medica l Center cervix (procedure) [code = 299004679] Future Scheduled 2019-04-[address] [facility] Test 00:00:00 malignant neoplasm of Medica l Center cervix (procedure) [code = 141929365] Future Scheduled [address] [facility] Test 00:00:00 malignant neoplasm of Medica l Center cervix (procedure) [code = 430022898] Future Scheduled [address] [facility] Test 00:00:00 malignant neoplasm of Medica l Center cervix (procedure) [code = 572237550] Future Scheduled [address] [facility] Test 00:00:00 malignant neoplasm of Medica l Center cervix (procedure) [code = 959871725] Future Scheduled [address] [facility] Test 00:00:00 malignant neoplasm of Medica l Center cervix (procedure) [code = 336991577] Future Scheduled [address] [facility] Test 00:00:00 malignant neoplasm of Medica l Center cervix (procedure) [code = 309721816] Future Scheduled [address] [facility] Test 00:00:00 malignant neoplasm of Medica l Center cervix (procedure) [code = 037595530] Future Scheduled [address] [facility] Test 00:00:00 malignant neoplasm of Medica l Center cervix (procedure) [code = 120570803] Future Scheduled [address] [facility] Test 00:00:00 malignant neoplasm of Medica l Center cervix (procedure) [code = 912732395] Future Scheduled [address] [facility] Test 00:00:00 (procedure) [code = Medical Center 18967515] Future Scheduled [address] [facility] Test 00:00:00 (procedure) [code = Medical Center 29690832] Future Scheduled [address] [facility] Test 00:00:00 (procedure) [code = [facility] Center 07614122] Future Scheduled [address] [facility] Test 00:00:00 (procedure) [code = [facility] Center 14925594] Future Scheduled [address] [facility] Test 00:00:00 (procedure) [code = Medical Center 60383570] Future Scheduled [address] [facility] Test 00:00:00 (procedure) [code = Medical Center 70073544] Future Scheduled [address] [facility] Test 00:00:00 (procedure) [code = Medical Center 63160807] Future Scheduled [address] [facility] Test 00:00:00 (procedure) [code = Medical Center 20419199] Future Scheduled [address] [facility] Test 00:00:00 (procedure) [code = Medical Center 99504585] Future Scheduled [address] [facility] Test 00:00:00 (procedure) [code = Medical Center 43959670] Future Scheduled [address] [facility] Test 00:00:00 (procedure) [code = Medical Center 65366188] Future Scheduled [address] [facility] Test 00:00:00 (procedure) [code = Medical Center 49177596] Future Scheduled 2001 DTAP/TDAP/TD VACCINES CH I [...] Type Clinicians Facility Department ID 2023-03-09 Outpatient [facility] Surgery [id number] [facility] 08:48:52 2023-03-03 Inpatient YOLANDE BARAJAS [facility] [id number] [facility] 18:30:29 SUSANNA 2023-06-05 2023-06-05 Outpatient BHAVIN [facility] [id number] [facility] 00:00:00 00:00:00 2023-05-05 2023-05-05 Outpatient BHAVIN [facility] [id number] [facility] 00:00:00 00:00:00 2023-04-12 2023-04-12 Outpatient BHAVIN MALLOY [facility] [id number] [facility] 00:00:00 00:00:00 YENIFER 2023-04-12 2023-04-12 Outpatient BHAVIN GRAJEDA [facility] [id number] [facility] 00:00:00 00:00:00 CARLOS 2023-04-04 2023-04-04 Outpatient BHAVIN [facility] [id number] [facility] 00:00:00 00:00:00 2023-03-03 2023-03-22 [facility] [id number] [facility] 12:21:00 18:52:00 SUSANNA 2023-03-13 2023-03-13 Outpatient BHAVIN GRAJEDA [facility] [id number] [facility] 00:00:00 00:00:00 CARLOS 2023-03-10 2023-03-10 [facility] [id number] 12:00:00 12:00:00 Encounter Carlos Hernández [facility] 2023-03-10 2023-03-10 Outpatient YOLANDE KWON [facility] [id number] [facility] 00:00:00 00:00:00 CARLOS 2023-03-10 2023-03-10 Outpatient BHAVIN MALLOY [facility] [id number] [facility] 00:00:00 00:00:00 YENIFER 2023-03-08 2023-03-08 Surgery Lillian [facility] [id number] 08:00:00 10:03:00 [facility] 2023-03-08 2023-03-08 Anesthesia Demetrius Dugan [facility] [id number] [facility] 07:56:00 09:55:00 Event Camden Malkaambrosio Maurer [facility] 2023-03-05 2023-03-05 Anesthesia Alvin Alcala [facility] [id number] 19:31:18 19:31:18 Event [facility] 2023-03-04 2023-03-04 Travel [facility] [id number] [facility] 00:00:00 00:00:00 [facility] 2023-03-03 2023-03-03 Anesthesia Caridad [facility] [id number] 16:11:00 17:19:00 [facility] 2023-03-03 Surgery Debra [facility] [id number] 13:48:00 15:23:00 [facility] 2023-03-01 2023-03-01 Procedure Abdoulaye [facility] [id number] 14:00:00 15:00:00 visit Debra, Sus[facility] 2023-03-01 2023-03-01 Travel [facility] [id number] [facility] 00:00:00 00:00:00 [facility] 2023-02-28 2023-02-28 Outpatient EL YOLANDE JOHNSON [facility] [id number] SLE 11:39:48 11:39:48 ABDOULAYE 2023-02-28 2023-02-28 Outpatient EL [facility] [id number] [facility] 00:00:00 00:00:00 2023-02-28 2023-02-28 Telephone Eloisa [facility] [id number] 00:00:00 00:00:00 Gypsy [facility] 2023-02-28 2023-02-28 Travel [facility] [id number] [facility] 00:00:00 00:00:00 [facility] 2023-02-24 2023-02-24 Office Mellissa [facility] [id number] 08:00:00 10:46:[address] [facility] 2023-02-24 2023-02-24 Outpatient YOLANDE MONET [facility] [id number] SLEDarryn 07:59:33 10:46:55 [facility] 2023-02-24 2023-02-24 Outside Nicci, [facility] [id number] 00:00:00 00:00:00 Orders [facility] 2023-02-24 2023-02-24 Telephone Birdie, [facility] [id number] 00:00:00 00:00:00 [facility] 2023-02-23 2023-02-23 Hospital Lostia, [facility] [id number] 11:38:18 23:59:00 Encounter [facility] 2023-02-23 2023-02-23 Outpatient BHAVIN WINN SLEDarryn SLE [id number] [facility] 11:38:18 23:59:00 [facility] 2023-02-23 2023-02-23 [facility] [id number] 11:37:51 11:37:51 Encounter [facility] 2023-02-23 2023-02-23 Outpatient BHAVIN WINN SLEDarryn [facility] [id number] [facility] 11:37:51 11:37:51 [facility] 2023-02-23 2023-02-23 Office Nicci, [facility] [id number] 08:00:00 11:23:03 [facility] 2023-02-23 2023-02-23 Outpatient BHAVIN GRAJEDA [facility] [id number] [facility] 07:59:25 11:23:03 [facility] 2023-02-23 2023-02-23 Treatment Grajeda, [facility] [id number] 10:35:00 10:50:00 [facility] 2023-02-23 2023-02-23 Outpatient EL [facility] [id number] SLE 10:44:57 10:44:57 2023-02-23 2023-02-23 Outpatient EL [facility] SLE [id number] [facility] 00:00:00 00:00:00 2023-02-23 2023-02-23 Orders Yolanda, [facility] [id number] 00:00:00 00:00:00 Only [facility] 2023-02-23 2023-02-23 Documentat Kurt [facility] [id number] 00:00:00 00:00:00 ion [facility] 2023-02-21 2023-02-21 Orders Lostak, [facility] [id number] 00:00:00 00:00:00 Only [facility] 2023-02-15 2023-02-15 Telephone Nicci [facility] [id number] 00:00:00 00:00:00 [facility] 2023-01-18 2023-01-20 [facility] [id number] 03:16:00 12:00:00 Encounter Mariaa Wilder [facility] 2023-01-18 2023-01-20 Inpatient ER CAREN [facility] Oncology [id number] SLE 03:16:00 12:00:00 KIMBERLI 2023-01-18 2023-01-18 Outpatient EL NICCI [facility] [id number] SLE 00:00:00 00:00:00 [facility] 2023-01-18 2023-01-18 Travel [facility] [id number] [facility] 00:00:00 00:00:00 [facility] 2022-05-12 2022-05-12 Emergency Emergency Moe, [facility] [id number] [facility] 21:57:00 21:57:00 Amir 44 2022-05-12 2022-05-12 Emergency [facility] [id number] [facility] 21:57:00 21:57:00 44 Results Test Description Test Time Test Comments Results Result [facility] e Comments TISSUE EXAM 2023-03-24 Surgical Pathology Report 18:48:03 Case: [id number] Authorizing Provider: Susanna Wick MD Collected: 03/14/2023 09:04 AM Ordering Location: [address] Received: 03/15/2023 02:25 PM Service Pathologist: [...] CARCINOMA (0/22) Signing Pathologist Direct Phone Line: [phone] y signed by Eb Toney MD on 03/24/2023 at 6:48 PMRe-excision of the positive margins (floor of mouth, retromolar trigone, right base of tongue) are negative. Clinical correlation is recommended for the significance of the cauterized tumor at right soft tissue margin/positive margin. ORAL CAVITYLIP AND ORAL CAVITY: INCISIONAL BX, EXCISIONAL BX, RESECTION - All Qmqkylzbd6zc Edition - Protocol posted: 08/20/2021PECIMEN Procedure: Glossectomy: [...] ADDITIONAL FINDINGS Additional Findings: Epithelial hyperplasia A. 88465X. 92769P. 33503A. 96997, 96883 x 1, 69848 x 5, 96068 x 1, 80228 x 2E. 30109, 00647 x 1F. 65029I. 74387, 51067B. 33686 91706, 13536 x 1, 86733 x 1I. 06145, 49294 x 1Tongue cancerGlossectomy and bilateral neck lymph [...] cut surface. The lymph nodes and a business development representative section of this gland are submitted as described below.B1-1 possible lymph node, bisectedB2-1 lymph node, bisectedB3-1 lymph node, trisectedB 4-1 lymph node, bisectedB5-business development representative section of glandC. Neck, LeftPart C [...] node, sectionedC4-1 lymph node, bisectedC5-1 whole possible nodeC6-business development representative section of glandD. Soft Tissue, OtherThe [...] base of tongue (yellow at tip and anterior)Z53-qaihp 2, start of chokwzvnfbL05- slice 3, continuity of gbwjhqgisbC23- slice 4, continuity of remnzkadgrK86- slice 5, continuity of bgeqrcerfaT63- slice 6, continuity of tlxrwtfdvoM11- slice 7- mass, closest deep szcuipW35- slice 9, Mass, with the closest left soft tissue owtrakP12- Slice 10, business development representative section of massD20- Slice 11, tumor abutting right soft iniptrY17- D24- base of tongue, perpendicular sections, right side, with closest tumor to base of ebkevcT27-G96- business development representative sections of wodxlhjbmlY03- business development representative sections of uvulaE. Soft Tissue, Other [...] node, bisectedF8-1 lymph node, bisectedF9-1 lymph node, ngljzqmzS78-6 lymph node, qyrscrtoJ51-6 lymph node, bisectedF 12-1 lymph node, bisectedF 13-4 whole possible djxcaM79-7 whole possible nodesG. Soft Tissue, Otherspecimen received [...] lymph nodesI8-4 whole lymph nodesI9-4 whole lymph dcsyoH49-7 whole lymph nodesD. Soft Tissue, OtherFROZEN SECTIONSubtotal [...] the use of immunohistochemistry or special stains.D18, J54HX08 & D2-40: nrbqevnnL03- bmabrcmhT1IF09- uasbtezkL03- negative I10P40- negativeControl Slides Examined: In-house known positive controls were evaluated along with the test tissue. These control slides run alongside of the patients sample show appropriate staining. Internal positive and negative controls when available are evaluated Immunohistochemistry technical testing was performed at [facility], Pathology Laboratory where it was developed and [...] qualified to perform high complexity clinical laboratory testing.[facility], Department of Pathology, [address] [place] [address], [facility], [address] [place] [address], [facility], [facility], [address] [place] [address], POCT-GLUCOSE METER 2023-03-22 12:40:41 Test Item Value Reference Range Interpretation Comme nts POC-GLUCOSE METER (BEAKER) 107 mg/dL 70-110 : TESTED AT [facility] [address] [place] [address] (test code = 1538) [facility], [address]: Closing Supervisor/Techni federico ID = [id number] for TIRSO JAVIER [id number] 07:32:41 Test Item Value Reference Range Interpretation Comments MAGNESIUM (BEAKER) (test code = 2.0 mg/dL 1.6-2.6 627) Closing Supervisor ID - [id number] 07:32:41 Test Item Value Reference Range Interpretation Comments PHOSPHORUS (BEAKER) (test code = 5.2 mg/dL 2.3-4.7 H 604) Closing Supervisor ID - EOOBASIC METABOLIC [id number] 07:32:40 Test Item Value Reference Range Interpretation [...] not appl icable for dialysis patishiraz khan Closing Supervisor ID - EOOPOCT-GLUCOSE [id number] 06:26:25 Test Item Value Reference Range Interpretation Comments POC-GLUCOSE METER 84 mg/dL 70-110 : TESTED A T [facility] 6720 (BEAKER) (test code = [place], 1538) [address]: Closing Supervisor/Techni federico ID = [id number] for SEMI ENHANG CBC (HEMOGRAM ONLY)2023-03-22 06:07:07 [...] 0-0 (BEAKER) (test code = 413) POCT-GLUCOSE [id number] 23:51:48 Test Item Value Reference Range Interpretation Comments POC-GLUCOSE METER 127 mg/dL 70-110 H : TESTED A T [facility] 6720 (BEAKER) (test code = [facility], 1538) 457[address]: Closing Supervisor/Techni federico ID = [id number] for SE FADUMO GELLERE POCT-GLUCOSE [id number] 15:58:20 Test Item Value Reference Range Interpretation Comments POC-GLUCOSE METER 101 mg/dL 70-110 : TESTED A T [facility] 6720 (BEAKER) (test code = [facility], 1538) 467[address]: Closing Supervisor/Techni federico ID = [id number] for Al rahel, Sonali POCT-GLUCOSE [id number] 13:10:10 Test Item Value Reference Range Interpretation Comments POC-GLUCOSE METER 102 mg/dL 70-110 : TESTED A T [facility] 6720 (BEAKER) (test code = [facility], 1538) 98146: Closing Supervisor/Techni federico ID = [id number] for Al rahel, Sonali POCT-GLUCOSE [id number] 06:57:42 Test Item Value Reference Range Interpretation Comments POC-GLUCOSE METER 98 mg/dL 70-110 : TESTED A T [facility] 6720 (BEAKER) (test code = [facility], 1538) 865[address]: Closing Supervisor/Techni federico ID = [id number] for SEMI ENFADUMOE [id number] 06:09:48 Test Item Value Reference Range Interpretation Comments MAGNESIUM (BEAKER) (test code = 1.9 mg/dL 1.6-2.6 627) Closing Supervisor ID - SARAH [id number] 06:09:48 Test Item Value Reference Range Interpretation Comments PHOSPHORUS (BEAKER) (test code = 4.2 mg/dL 2.3-4.7 604) Closing Supervisor ID - SARAH WBASIC METABOLIC [id number] 06:09:47 Test Item Value Reference Range Interpretation [...] not appl icable for dialysis patien ts Closing Supervisor ID - [facility]AH [facility] (HEMO[facility] ONLY)2023-03-21 05:41:00 Test Item Value Reference [...] 0-0 (BEAKER) (test code = 413) POCT-GLUCOSE [id number] 02:33:24 Test Item Value Reference Range Interpretation Comments POC-GLUCOSE METER 80 mg/dL 70-110 : TESTED A T [facility] 6720 (BEAKER) (test code = [facility], 1538) 46167: Closing Supervisor/Techni federico ID = [id number] for Sue Brito POCT-GLUCOSE [id number] 18:37:31 Test Item Value Reference Range Interpretation Comments POC-GLUCOSE METER 84 mg/dL 70-110 : TESTED A T [facility] 6720 (BEAKER) (test code = [facility], 1538) [address]: Closing Supervisor/Techni federico ID = [id number] for Power macias, Angela POCT-GLUCOSE [id number] 13:00:04 Test Item Value Reference Range Interpretation Comments POC-GLUCOSE METER 91 mg/dL 70-110 : TESTED A T [facility] 6720 (BEAKER) (test code = [facility], 1538) 517[address]: Closing Supervisor/Techni federico ID = [id number] for Power macias, Angela [id number] 06:24:55 Test Item Value Reference Range Interpretation Comments PHOSPHORUS (BEAKER) (test code = 3.2 mg/dL 2.3-4.7 604) Closing Supervisor ID - EOOBASIC METABOLIC [id number] 06:24:54 Test Item Value Reference Range Interpretation [...] not appl icable for dialysis patien ts Closing Supervisor ID - [id number] 06:24:54 Test Item Value Reference Range Interpretation Comments MAGNESIUM (BEAKER) (test code = 1.9 mg/dL 1.6-2.6 627) Closing Supervisor ID - EOOPOCT-GLUCOSE [id number] 05:44:23 Test Item Value Reference Range Interpretation Comments POC-GLUCOSE METER 73 mg/dL 70-110 : TESTED A T [facility] 6720 (BEAKER) (test code = PAVAN Thomas [facility], 1538) [address]: Closing Supervisor/Techni federico ID = [id number] for Ramiro Pitts CBC (HEMOGRAM ONLY)2023-03-20 05:41:41 [...] 0-0 (BEAKER) (test code = 413) POCT-GLUCOSE [id number] 01:11:53 Test Item Value Reference Range Interpretation Comments POC-GLUCOSE METER 99 mg/dL 70-110 : TESTED A T [facility] 6720 (BEAKER) (test code = [facility], 1538) 07359: Closing Supervisor/Techni federico ID = [id number] for Ramiro Pitts POCT-GLUCOSE [id number] 18:05:19 Test Item Value Reference Range Interpretation Comments POC-GLUCOSE METER 141 mg/dL 70-110 H : TESTED A T [facility] 6720 (BEAKER) (test code = [facility], 1538) 30564: Closing Supervisor/Techni federico ID = [id number] for Ok makenna, Avery POCT-GLUCOSE [id number] 05:30:38 Test Item Value Reference Range Interpretation Comments POC-GLUCOSE METER 139 mg/dL 70-110 H : TESTED A T [facility] 6720 (BEAKER) (test code = [facility], 1538) 848[address]: Closing Supervisor/Techni federico ID = [id number] for Ad ams, Kimetra [id number] 02:57:20 Test Item Value Reference Range Interpretation Comments MAGNESIUM (BEAKER) (test code = 1.9 mg/dL 1.6-2.6 627) [id number] 02:57:20 Test Item Value Reference Range Interpretation Comments PHOSPHORUS (BEAKER) (test code = 3.7 mg/dL 2.3-4.7 604) BASIC METABOLIC [id number] 02:57:19 Test Item Value Reference Range Interpretation [...] 0-0 (BEAKER) (test code = 413) POCT-GLUCOSE [id number] 23:35:47 Test Item Value Reference Range Interpretation Comments POC-GLUCOSE METER 146 mg/dL 70-110 H : TESTED A T [facility] 6720 (BEAKER) (test code = [facility], 1538) 15779: Closing Supervisor/Techni federico ID = [id number] for Ad ams, Paytonetra POCT-GLUCOSE [id number] 13:10:55 Test Item Value Reference Range Interpretation Comments POC-GLUCOSE METER 98 mg/dL 70-110 : TESTED A T [facility] 6720 (BEAKER) (test code = [facility], 1538) 99042: Closing Supervisor/Techni federico ID = [id number] for NIST OR, TIFFANY [id number] 02:07:47 Test Item Value Reference Range Interpretation Comments PHOSPHORUS (BEAKER) (test code = 3.7 mg/dL 2.3-4.7 604) Closing Supervisor ID - [id number] 02:07:46 Test Item Value Reference Range Interpretation Comments MAGNESIUM (BEAKER) (test code = 1.8 mg/dL 1.6-2.6 627) Closing Supervisor ID - MARCOBASIC METABOLIC [id number] 02:07:46 Test Item Value Reference Range Interpretation [...] not appl icable for dialysis patien ts Closing Supervisor ID - MARCOCBC (HEMOGRAM ONLY)2023-03-18 01:43:23 Test [...] 0-0 (BEAKER) (test code = 413) POCT-GLUCOSE [id number] 06:11:57 Test Item Value Reference Range Interpretation Comments POC-GLUCOSE METER 116 mg/dL 70-110 H : TESTED A T [facility] 6720 (BEAKER) (test code = [place], 1538) [address]: Closing Supervisor/Techni federico ID = [id number] for IB ADAM VARGAS BASIC METABOLIC [id number] 04:24:08 Test Item Value Reference Range Interpretation [...] not appl icable for dialysis patien ts Closing Supervisor ID - [id number] 04:24:08 Test Item Value Reference Range Interpretation Comments MAGNESIUM (BEAKER) (test code = 3.9 mg/dL 1.6-2.6 H 627) Closing Supervisor ID - [id number] 04:24:08 Test Item Value Reference Range Interpretation Comments PHOSPHORUS (BEAKER) (test code = 3.1 mg/dL 2.3-4.7 604) Closing Supervisor ID - ADMINCBC (HEMOGRAM ONLY)2023-03-17 03:52:15 Test [...] 0-0 (BEAKER) (test code = 413) POCT-GLUCOSE [id number] 00:05:32 Test Item Value Reference Range Interpretation Comments POC-GLUCOSE METER 125 mg/dL 70-110 H : TESTED A [facility] 67[address] ([facility]) (test code = [facility], 153) [address]: Closing Supervisor/Techni federico ID = [id number] for IB ENNEDA, EUCIA POCT-GLUCOSE [id number] 18:44:19 Test Item Value Reference Range Interpretation Comments POC-GLUCOSE METER 125 mg/dL 70-110 H : Notified RN/MD: ([facility]) (test code = TESTED AT [place] [address]) [facility], [address]: Closing Supervisor/Techni federico ID = [id number] for Senia Villatoro POCT-GLUCOSE [id number] 13:09:35 Test Item Value Reference Range Interpretation Comments POC-GLUCOSE METER 108 mg/dL 70-110 : TESTED A [facility] 6720 (BEAKER) (test code = [place], 1538) [address]: Closing Supervisor/Techni federico ID = [id number] for Sh Senia worthington [id number] 05:44:01 Test Item Value Reference Range Interpretation Comments PHOSPHORUS (BEAKER) (test code = 3.4 mg/dL 2.3-4.7 604) Closing Supervisor ID - MMBASIC METABOLIC [id number] 05:44:00 Test Item Value Reference Range Interpretation [...] not appl icable for dialysis patien ts Closing Supervisor ID - [id number] 05:44:00 Test Item Value Reference Range Interpretation Comments MAGNESIUM (BEAKER) (test code = 2.6 mg/dL 1.6-2.6 627) Closing Supervisor ID - MMCBC (HEMOGRAM ONLY)2023-03-16 05:40:09 Test [...] 0-0 (BEAKER) (test code = 413) POCT-GLUCOSE [id number] 00:06:45 Test Item Value Reference Range Interpretation Comments POC-GLUCOSE METER 127 mg/dL 70-110 H : TESTED A T [facility] 6720 (BEAKER) (test code [facility], = 153) [address]: Closing Supervisor/Techni federico ID = [id number] for Balwinder Smith POCT-GLUCOSE [id number] 17:44:55 Test Item Value Reference Range Interpretation Comments POC-GLUCOSE METER 119 mg/dL 70-110 H : TESTED A T [facility] 6720 (BEAKER) (test code = [facility], 153) [address]: Closing Supervisor/Techni federico ID = [id number] for Senia Villatoro POCT-GLUCOSE [id number] 14:16:32 Test Item Value Reference Range Interpretation Comments POC-GLUCOSE METER 120 mg/dL 70-110 H : TESTED A T [facility] 6720 (BEAKER) (test code = [facility], 1538) [address]: Closing Supervisor/Techni federico ID = [id number] for Sh Senia worthington [id number] 05:50:48 Test Item Value Reference Range Interpretation Comments MAGNESIUM (BEAKER) (test code = 1.5 mg/dL 1.6-2.6 L 627) Closing Supervisor ID - SARAH [id number] 05:50:48 Test Item Value Reference Range Interpretation Comments PHOSPHORUS (BEAKER) (test code = 4.0 mg/dL 2.3-4.7 604) Closing Supervisor ID - SARAH WBASIC METABOLIC [id number] 05:50:47 Test Item Value Reference Range Interpretation [...] not appl icable for dialysis patien ts Closing Supervisor ID Cecilia SMITH WCBC (HEMOGRAM ONLY)2023-03-15 05:18:47 [...] code = 413) HGB/HCT (H&H) - STAT [id number] 16:32:34 Test Item Value Reference Range Interpretation Comments HEMOGLOBIN (BEAKER) (test code = 11.2 GM/DL 12.0-15.0 L 410) HEMATOCRIT (BEAKER) (test code = 33.0 % 36.0-45.0 L 411) BLOOD GAS, [id number] 16:32:34 Test Item Value Reference Range Interpretation [...] (BEAKER) (test code = 1819) 30.0 CALCIUM, [id number] 16:32:33 Test Item Value Reference Range Interpretation Comments CALCIUM IONIZED (BEAKER) (test 1.14 mmol/L 1.12-1.27 code = 698) PH, BLOOD (BEAKER) (test code = 7.42 1810) GLUCOSE-STAT [id number] 16:32:14 Test Item Value Reference Range Interpretation Comments GLUCOSE RANDOM (BEAKER) (test code 142 mg/dL 70-110 H = 652) BLOOD GAS, [id number] 13:13:17 Test Item Value Reference Range Interpretation [...] (BEAKER) (test code = 1819) 28.0 CALCIUM, [id number] 13:13:16 Test Item Value Reference Range Interpretation Comments CALCIUM IONIZED (BEAKER) (test 1.28 mmol/L 1.12-1.27 H code = 698) PH, BLOOD (BEAKER) (test code = 7.43 1810) POTASSIUM-STAT [id number] 13:12:06 Test Item Value Reference Range Interpretation Comments POTASSIUM (BEAKER) (test code = 4.3 meq/L 3.6-5.5 379) HGB/HCT (H&H) - STAT [id number] 13:12:06 Test Item Value Reference Range Interpretation Comments HEMOGLOBIN (BEAKER) (test code = 12.8 GM/DL 12.0-15.0 410) HEMATOCRIT (BEAKER) (test code = 38.0 % 36.0-45.0 411) GLUCOSE-STAT [id number] 13:12:05 Test Item Value Reference Range Interpretation Comments GLUCOSE RANDOM (BEAKER) (test code 119 mg/dL 70-110 H = 652) SODIUM NA-STAT [id number] 13:12:05 Test Item Value Reference Range Interpretation Comments SODIUM (BEAKER) (test code = 381) 135 meq/L 136-145 L TISSUE [id number] 12:28:43Surgical Pathology Report Case: [id number] Authorizing Provider: Susanna Wick MD Collected: 03/03/2023 04:51 PM Ordering Location: [facility] PERIOPERATIVE Received: 03/06/2023 10:23 AM SERVICES Pathologist: Nick Banks MD Specimen: Tongue, RIGHT ANTERIOR TONSILAR PILLAR A. RIGHT ANTERIOR TONSILLAR PILLAR, BIOPSY - LYMPHOID TISSUE, NEGATIVE FOR CARCINOMA. Signing Pathologist Direct Phone Line: [phone] signed by Nick Banks MD on 03/14/2023 at 12:28 PMImmunostains for AE1/AE3 and p40 are negative.88269, 69267, 78296Yldjgc cancerA. TongueReceived fresh labeled with the patient's [...] evaluated Immunohistochemistry technical testing was performed at [facility] [place], Pathology Laboratory where it was developed and [...] perform high complexity clinical laboratory testing.SODIUM NA-STAT [id number] 08:29:01 Test Item Value Reference Range Interpretation Comments SODIUM (BEAKER) (test code = 381) 134 meq/L 136-145 L CALCIUM, [id number] 08:29:00 Test Item Value Reference Range Interpretation Comments CALCIUM IONIZED (BEAKER) (test 1.10 mmol/L 1.12-1.27 L code = 698) PH, BLOOD (BEAKER) (test code = 7.45 1810) BLOOD GAS, [id number] 08:29:00 Test Item Value Reference Range Interpretation [...] (BEAKER) (test code = 1819) 54.0 POTASSIUM-STAT [id number] 08:27:11 Test Item Value Reference Range Interpretation Comments POTASSIUM (BEAKER) (test code = 4.4 meq/L 3.6-5.5 379) HGB/HCT (H&H) - STAT [id number] 08:27:11 Test Item Value Reference Range Interpretation Comments HEMOGLOBIN (BEAKER) (test code = 12.3 GM/DL 12.0-15.0 410) HEMATOCRIT (BEAKER) (test code = 36.0 % 36.0-45.0 411) GLUCOSE-STAT [id number] 08:27:10 Test Item Value Reference Range Interpretation Comments GLUCOSE RANDOM (BEAKER) (test code = 92 mg/dL 70-110 652) SARS-COV2/RT-PCR ([facility])2023-03-14 07:10:29 Test Item Value Reference Range Interpretation Comments SARS-COV2/RT-PCR Negative Negative The SARS-Co V-2 target (test code = nucleic acids a re not 7941209) detected in thi s specimen. Negative result [...] revoked sooner. Fact Sheet for Healthcare Providers: https://www.[employer]/Documents/Xpert%20Xpress%20SARS%20CoV-2/Fact%20Sheets/3023802%80ZZQJ-IIW-6%20 HEALTHCARE%20PROVIDERS%20FACT%20SHEET.pdf Fact Sheet for Healthcare Patients: https://www.[employer]/Documents/Xpert%20Xp ress%20SARS%20CoV-2/Fact%20Sheets/3023801%41PZPH-IBA-9%20PATIENT%20FACT%20SHEET .mjmRDXHIUIKE9719-10-64 03:44:35 Test Item Value Reference Range Interpretation Comments MAGNESIUM (BEAKER) (test code = 1.9 mg/dL 1.6-2.6 627) Closing Supervisor ID - SARAH [id number] 03:44:35 Test Item Value Reference Range Interpretation Comments PHOSPHORUS (BEAKER) (test code = 5.0 mg/dL 2.3-4.7 H 604) Closing Supervisor LARON SMITH WBASIC METABOLIC [id number] 03:44:34 Test Item Value Reference Range Interpretation [...] not appl icable for dialysis patien ts Closing Supervisor LARON SMITH WPT/[id number] 03:35:20 Test Item Value Reference Range Interpretation [...] for patients with mechanical heart valves. SCREEN, [id number] 19:22:08 Test Item Value Reference Range Interpretation Comments TEST URINE (BEAKER) (test Negative Negative code = 583) POC-Glucose [id number] 11:56:01 Test Item Value Reference Range Interpretation Comments POC-Glucose Meter (test 95 mg/dL 70-110 : TE STED AT [facility] code = 1538) [address] [facility], 770 30: Closing Supervisor/Techni federico ID = [id number] for Dewey Arora tone Lab Interpretation (test Normal code = 28271-8) [facility] [id number] 11:56:01 Test Item Value Reference Range Interpretation Comments POC-GLUCOSE METER 95 mg/dL 70-110 : [facility] ([facility]ER[facility] (test code = [facility], 1538) 24485: Closing Supervisor/Techni federico ID = [id number] for Marsha Petty POCT-GLUCOSE [id number] 06:17:24 Test Item Value Reference Range Interpretation Comments POC-GLUCOSE METER 160 mg/dL 70-110 H : [facility] (BEAKER) (test code = [facility], 1538) 58124: Closing Supervisor/Techni federico ID = [id number] for HANG ALMAZAN [id number] 04:44:38 Test Item Value Reference Range Interpretation Comments MAGNESIUM (BEAKER) (test code = 1.9 mg/dL 1.6-2.6 627) Closing Supervisor ID - ISOEQSWSPDCXJ0754-93-61 04:44:38 Test Item Value Reference Range Interpretation Comments PHOSPHORUS (BEAKER) (test code = 5.3 mg/dL 2.3-4.7 H 604) Closing Supervisor ID - EOOBASIC METABOLIC [id number] 04:44:37 Test Item Value Reference Range Interpretation [...] 8.4-10.2 H (test code = 697) EGFR ([facility]) 115 Interpretatio n of eGFR [...] not appl icable for dialysis patien ts Closing Supervisor ID - EOOPOCT-GLUCOSE [id number] 00:21:01 Test Item Value Reference Range Interpretation Comments POC-GLUCOSE METER 108 mg/dL 70-110 : TESTED A T [facility] 6720 ([email or web address]) (test code = [facility] [employer] [facility], 1538) 42269: Closing Supervisor/Techni federico ID = [id number] for HANG ALMAZAN POCT-GLUCOSE [id number] 16:05:36 Test Item Value Reference Range Interpretation Comments POC-GLUCOSE METER 120 mg/dL 70-110 H : TESTED A T [facility] 6720 ([email or web address]) (test code = [facility] [employer] [facility], 1538) 68487: Closing Supervisor/Techni federico ID = [id number] for Terrence mcginnis Sonali POCT-GLUCOSE [id number] 12:33:49 Test Item Value Reference Range Interpretation Comments POC-GLUCOSE METER 87 mg/dL 70-110 : TESTED A T [facility] 6720 ([email or web address]) (test code = [facility], 1538) 50980: Closing Supervisor/Techni federico ID = [id number] for Roe n, Sonali POCT-GLUCOSE [id number] 06:25:50 Test Item Value Reference Range Interpretation Comments POC-GLUCOSE METER 108 mg/dL 70-110 : TESTED A T [facility] 6720 (BEAKER) (test code = [facility] [place], 1538) 32205: Closing Supervisor/Techni federico ID = [id number] for HANG ALMAZAN [id number] 04:51:06 Test Item Value Reference Range Interpretation Comments MAGNESIUM (BEAKER) (test code = 1.6 mg/dL 1.6-2.6 627) Closing Supervisor ID - MAXWELL [id number] 04:51:06 Test Item Value Reference Range Interpretation Comments PHOSPHORUS (BEAKER) (test code = 4.4 mg/dL 2.3-4.7 604) Closing Supervisor ID - MAXWELL BBASIC METABOLIC [id number] 04:51:05 Test Item Value Reference Range Interpretation [...] not appl icable for dialysis patien ts Closing Supervisor ID - MAXWELL BPOCT-GLUCOSE [id number] 00:05:50 Test Item Value Reference Range Interpretation Comments POC-GLUCOSE METER 118 mg/dL 70-110 H : TESTED A T [facility] 6720 (BEAKER) (test code = [facility], 1538) 69594: Closing Supervisor/Techni federico ID = [id number] for HANG ALMAZAN POCT-GLUCOSE [id number] 16:40:48 Test Item Value Reference Range Interpretation Comments POC-GLUCOSE METER 99 mg/dL 70-110 : TESTED A T [facility] 6720 (BEAKER) (test code = [facility], 1538) 77516: Closing Supervisor/Techni federico ID = [id number] for Rosaline Deleon POCT-GLUCOSE [id number] 12:40:11 Test Item Value Reference Range Interpretation Comments POC-GLUCOSE METER 122 mg/dL 70-110 H : TESTED A T [facility] 6720 (BEAKER) (test code = [facility], 1538) 17062: Closing Supervisor/Techni federico ID = [id number] for Sonali Walters POCT-GLUCOSE [id number] 06:26:58 Test Item Value Reference Range Interpretation Comments POC-GLUCOSE METER 93 mg/dL 70-110 : TESTED A T [facility] 6720 (BEAKER) (test code = [facility], 1538) 84234: Closing Supervisor/Techni federico ID = [id number] for HANG ZUNIGA [id number] 04:39:11 Test Item Value Reference Range Interpretation Comments MAGNESIUM (BEAKER) (test code = 1.7 mg/dL 1.6-2.6 627) Closing Supervisor ID - ASMWBEWCHMSPCLT6144-56-84 04:39:11 Test Item Value Reference Range Interpretation Comments PHOSPHORUS (BEAKER) (test code = 4.6 mg/dL 2.3-4.7 604) Closing Supervisor ID - MARCOBASIC METABOLIC [id number] 04:39:10 Test Item Value Reference Range Interpretation [...] not appl icable for dialysis patien ts Closing Supervisor ID - MARCOBASIC METABOLIC [id number] 06:51:27 Test Item Value Reference Range Interpretation [...] not appl icable for dialysis patien ts Closing Supervisor ID - [id number] 06:51:27 Test Item Value Reference Range Interpretation Comments MAGNESIUM (BEAKER) (test code = 1.6 mg/dL 1.6-2.6 627) Closing Supervisor ID - SATVLUQWCGOJOKE5915-18-71 06:51:27 Test Item Value Reference Range Interpretation Comments PHOSPHORUS (BEAKER) (test code = 5.1 mg/dL 2.3-4.7 H 604) Closing Supervisor ID - MARCOPOC-Glucose [id number] 06:10:39 Test Item Value Reference Range Interpretation Comments POC-Glucose Meter (test 117 mg/dL 70-110 H : TE STED AT [facility] code = 1538) [address] [facility], 770 30: Closing Supervisor/Techni federico ID = [id number] for DARCI MONTEMAYOR Lab Interpretation (test Abnormal code = 89708-4) [facility] [id number] 06:10:39 Test Item Value Reference Range Interpretation Comments POC-GLUCOSE METER 117 mg/dL 70-110 H : [facility] (BEAKER) (test code = [facility], 1538) 84907: Closing Supervisor/Techni federico ID = [id number] for TH OMPSON, BELKIS POCT-GLUCOSE [id number] 00:21:24 Test Item Value Reference Range Interpretation Comments POC-GLUCOSE METER 133 mg/dL 70-110 H : TESTED A T [facility] 6720 (BEAKER) (test code = [facility], 1538) 49003: Closing Supervisor/Techni federico ID = [id number] for TH OMPSON, BELKIS POCT-GLUCOSE [id number] 18:01:01 Test Item Value Reference Range Interpretation Comments POC-GLUCOSE METER 131 mg/dL 70-110 H : [facility] (BEAKER) (test code = [facility], 1538) 32071: Closing Supervisor/Techni federico ID = [id number] for Sa castanonJass POC-Glucose [id number] 11:46:52 Test Item Value Reference Range Interpretation Comments POC-Glucose Meter (test 86 mg/dL 70-110 : TE STED AT [facility] code = 1538) [address] [facility], 770 30: Closing Supervisor/Techni federico ID = [id number] for Micha Gagnon Lab Interpretation (test Normal code = 28123-3) [facility] [id number] 11:46:52 Test Item Value Reference Range Interpretation Comments POC-GLUCOSE METER 86 mg/dL 70-110 : [facility] (BEAKER) (test code = [facility], 1538) 28135: Closing Supervisor/Techni federico ID = [id number] for Sanc Jass mcknight POCT-GLUCOSE [id number] 06:32:46 Test Item Value Reference Range Interpretation Comments POC-GLUCOSE METER 110 mg/dL 70-110 : [facility] (BEAKER) (test code = [facility], 1538) 11717: Closing Supervisor/Techni federico ID = [id number] for HANG ALMAZAN BASIC METABOLIC [id number] 05:38:35 Test Item Value Reference Range Interpretation [...] not appl icable for dialysis patien ts Closing Supervisor ID - [id number] 05:38:35 Test Item Value Reference Range Interpretation Comments MAGNESIUM (BEAKER) (test code = 1.8 mg/dL 1.6-2.6 627) Closing Supervisor ID - [id number] 05:38:35 Test Item Value Reference Range Interpretation Comments PHOSPHORUS (BEAKER) (test code = 3.4 mg/dL 2.3-4.7 604) Closing Supervisor ID - DBCBC W/PLT COUNT & AUTO [id number] 05:14:51 Test Item Value Reference Range Interpretation [...] PERCENT (BEAKER) (test code = 2801) POCT-GLUCOSE [id number] 23:49:04 Test Item Value Reference Range Interpretation Comments POC-GLUCOSE METER 97 mg/dL 70-110 : [facility] (test code = [facility], 153) 66865: Closing Supervisor/Techni federico ID = [id number] for MIGUEL SHIRAZFADUMOE POCT-GLUCOSE [id number] 18:03:27 Test Item Value Reference Range Interpretation Comments POC-GLUCOSE METER 96 mg/dL 70-110 : TESTED A T [facility] 6720 (BEAKER) (test code = [facility], 153) 46510: Closing Supervisor/Techni federico ID = [id number] for BELKIS SAMPSON POCT-GLUCOSE [id number] 12:11:29 Test Item Value Reference Range Interpretation Comments POC-GLUCOSE METER 95 mg/dL 70-110 : TESTED A T [facility] 6720 (BEAKER) (test code = [facility], 1538) 17517: Closing Supervisor/Techni federico ID = [id number] for BELKIS SAMPSON POCT , [id number] 07:31:00 Test Item Value Reference Range Interpretation Comments Test Urine, POC (test Negative code = 8157250) Control line present?, POC (test Yes code = 5202265) Background clear?, POC (test code Yes = 8872657) UPT Cassette Lot #, POC (test code 981524 = 4128266) UPT Cassette Expiration Date, POC 03/19/2024 (test code = 7370991) [facility] , [id number] 07:31:00 Test Item Value Reference Range Interpretation Comments Test Urine, POC (test Negative code = 1407540) Control line present?, POC (test Yes code = 9769525) Background clear?, POC (test code Yes = 3109160) UPT Cassette Lot #, POC (test code 949400 = 0515811) UPT Cassette Expiration Date, POC 03/19/2024 (test code = 3605818) [facility] , [id number] 07:31:00 Test Item Value Reference Range Interpretation Comments Test Urine, POC (test Negative code = 3535310) Control line present?, POC (test Yes code = 0593245) Background clear?, POC (test code Yes = 5547630) UPT Cassette Lot #, POC (test code 065519 = 1464266) UPT Cassette Expiration Date, POC 03/19/2024 (test code = 1429513) [facility] , [id number] 07:31:00 Test Item Value Reference Range Interpretation Comments Test Urine, POC (test Negative code = 6835920) Control line present?, POC (test Yes code = 1932223) Background clear?, POC (test code Yes = 5384364) UPT Cassette Lot #, POC (test code 545238 = 4771880) UPT Cassette Expiration Date, POC 03/19/2024 (test code = 2171820) [facility]-Glucose [id number] 06:42:59 Test Item Value Reference Range Interpretation Comments POC-Glucose Meter (test 95 mg/dL 70-110 : TE STED AT [facility] code = 1538) [address] [place], 770 30: Closing Supervisor/Techni federico ID = [id number] for Shayy Olivarez Lab Interpretation (test Normal code = 28768-7) [facility] [id number] 06:42:59 Test Item Value Reference Range Interpretation Comments POC-GLUCOSE METER 95 mg/dL 70-110 : TESTED A T [facility] 6720 (BEAKER) (test code = [facility], 1538) 34021: Closing Supervisor/Techni federico ID = [id number] for Shayy Costello od [id number] 04:49:08 Test Item Value Reference Range Interpretation Comments PHOSPHORUS (BEAKER) (test code = 4.0 mg/dL 2.3-4.7 604) Closing Supervisor ID - ADMINBASIC METABOLIC [id number] 04:49:07 Test Item Value Reference Range Interpretation [...] not appl icable for dialysis patien ts Closing Supervisor ID - [id number] 04:49:07 Test Item Value Reference Range Interpretation Comments MAGNESIUM (BEAKER) (test code = 1.9 mg/dL 1.6-2.6 627) Closing Supervisor ID - ADMINCBC W/PLT COUNT & AUTO [id number] 04:23:38 Test Item Value Reference Range Interpretation [...] PERCENT (BEAKER) (test code = 2801) POCT-GLUCOSE [id number] 23:51:35 Test Item Value Reference Range Interpretation Comments POC-GLUCOSE METER 115 mg/dL 70-110 H : TESTED A T [facility] 6720 (BEAKER) (test code = [facility], 153) 41878: Closing Supervisor/Techni federico ID = [id number] for Shayy Bahena POCT-GLUCOSE [id number] 18:02:27 Test Item Value Reference Range Interpretation Comments POC-GLUCOSE METER 97 mg/dL 70-110 : TESTED A T [facility] 6720 (BEAKER) (test code = [facility], 153) 51204: Closing Supervisor/Techni federico ID = [id number] for JENNI PSON, BELKIS POCT-GLUCOSE [id number] 12:21:50 Test Item Value Reference Range Interpretation Comments POC-GLUCOSE METER 82 mg/dL 70-110 : TESTED A T [facility] 6720 (BEAKER) (test code = [facility], 153) 74421: Closing Supervisor/Techni federico ID = [id number] for JENNI PSON, BELKIS POCT-GLUCOSE [id number] 06:39:31 Test Item Value Reference Range Interpretation Comments POC-GLUCOSE METER 82 mg/dL 70-110 : TESTED A T [facility] 6720 (BEAKER) (test code = [facility], 153) 73640: Closing Supervisor/Techni federico ID = [id number] for Shayy Costello od [id number] 05:41:53 Test Item Value Reference Range Interpretation Comments MAGNESIUM (BEAKER) (test code = 1.9 mg/dL 1.6-2.6 627) Closing Supervisor ID - [id number] 05:41:53 Test Item Value Reference Range Interpretation Comments PHOSPHORUS (BEAKER) (test code = 4.3 mg/dL 2.3-4.7 604) Closing Supervisor ID - ADMINBASIC METABOLIC [id number] 05:41:52 Test Item Value Reference Range Interpretation [...] not appl icable for dialysis patien ts Closing Supervisor ID - ADMINCBC W/PLT COUNT & AUTO [id number] 05:18:36 Test Item Value Reference Range Interpretation [...] PERCENT (BEAKER) (test code = 2801) POCT-GLUCOSE [id number] 00:09:35 Test Item Value Reference Range Interpretation Comments POC-GLUCOSE METER 160 mg/dL 70-110 H : TESTED A T [facility] 6720 (BEAKER) (test code = [facility] [place], 1538) 58678: Closing Supervisor/Techni federico ID = [id number] for Shayy Bahena POCT-GLUCOSE [id number] 17:21:07 Test Item Value Reference Range Interpretation Comments POC-GLUCOSE METER 75 mg/dL 70-110 : TESTED A T [facility] 6720 (BEAKER) (test code = [facility], 1538) 00148: Closing Supervisor/Techni federico ID = [id number] for Sonali Harrison Screen, [id number] 15:22:58 Test Item Value Reference Range Interpretation Comments Preg Test, Ur (test code = 2112-1) Negative Negative Lab Interpretation (test code = Normal 47147-1) [facility] CenterPregnancy [facility], [id number] 15:22:58 Test Item Value Reference Range Interpretation Comments Preg Test, Ur (test code = 2112-1) Negative Negative Lab Interpretation (test code = Normal 47022-9) [facility], [id number] 15:22:58 Test Item Value Reference Range Interpretation Comments Preg Test, Ur (test code = 2112-1) Negative Negative Lab Interpretation (test code = Normal 95230-4) [facility] CenterPregnancy Screen, [id number] 15:22:58 Test Item Value Reference Range Interpretation Comments Preg Test, Ur (test code = 2112-1) Negative Negative Lab Interpretation (test code = Normal 11328-0) [facility] CenterPREGNANCY SCREEN, [id number] 15:22:58 Test Item Value Reference Range Interpretation Comments TEST URINE (BEAKER) (test Negative Negative code = 583) POCT-GLUCOSE [id number] 17:25:51 Test Item Value Reference Range Interpretation Comments POC-GLUCOSE METER 87 mg/dL 70-110 : TESTED A T [facility] 6720 (BEAKER) (test code = [facility], 1538) 20789: Closing Supervisor/Techni federico ID = [id number] for MARK CEBALLOS POCT-GLUCOSE [id number] 12:49:55 Test Item Value Reference Range Interpretation Comments POC-GLUCOSE METER 93 mg/dL 70-110 : TESTED A T [facility] 6720 (BEAKER) (test code = [facility], 1538) 77397: Closing Supervisor/Techni federico ID = [id number] for MARK CEBALLOS COMPREHENSIVE METABOLIC [id number] 05:47:37 Test Item Value Reference Range Interpretation [...] not appl icable for dialysis patien ts Closing Supervisor ID - GMILXSAZTZNCVAT3662-10-69 05:41:52 Test Item Value Reference Range Interpretation Comments PREALBUMIN (BEAKER) (test code = 26 mg/dL 14-45 586) Closing Supervisor ID - [id number] 05:34:03 Test Item Value Reference Range Interpretation Comments PARTIAL THROMBOPLASTIN TIME 35.5 seconds 22.5-36.0 (BEAKER) (test code = 760) PROTHROMBIN TIME/[id number] 05:33:23 Test Item Value Reference Range Interpretation Comments PROTIME (BEAKER) (test code = 13.1 seconds 11.9-14.2 759) INR (BEAKER) (test code = 370) 1.05 <=5.90 RECOMMENDED COUMADIN/WARFARIN INR THERAPY RANGESSTANDARD DOSE: 2.0 - 3.0 Includes: PROPHYLAXIS for venous thrombosis, systemic embolization; TREATMENT for venous thrombosis and/or pulmonary embolus.HIGH RISK: Target INR is 2.5-3.5 for patients with mechanical heart valves.CBC W/PLT COUNT & AUTO [id number] 05:25:30 Test Item Value Reference Range Interpretation [...] code = 2801) HIV-1 ANTIGEN WITH HIV-1/2 [id number] 13:53:09 Test Item Value Reference Range Interpretation Comments HIV-1 ANTIGEN WITH HIV 1\\T\\2 Nonreactive Nonreactive ANTIBODY (2) (BEAKER) (test code = 2586) Closing Supervisor ID - ADMINHEPATITIS C [id number] 13:53:08 Test Item Value Reference Range Interpretation Comments HEPATITIS C ANTIBODY (BEAKER) Nonreactive Nonreactive (test code = 367) Closing Supervisor ID - NOBGUQKSGYWQTIB7306-15-98 13:38:31 Test Item Value Reference Range Interpretation Comments PREALBUMIN (BEAKER) (test code = 30 mg/dL 1445 586) Closing Supervisor ID - ADMINXR ABDOMEN/KUB 1 VIEW [id number] 19:34:44 [facility]ENTERName: [place] V[place]AJESS SHAH : 1980 Sex: FTECHNIQUE: XR ABDOMEN/KUB 1 VIEW PORTABLEINDICATION: DHT PLacement.COMPARISON: None.FINDINGS:Feeding tube tip projected over the gastric antrum. Nonobstructive bowelgas pattern. Lower pelvis is incompletely included on this examination.Supine radiographs are insensitive for detection of free intraperito nealair.IMPRESSION:Feeding tube tip projected over the gastric antrum.Electronically Signed By: Jarvsi Welsh03/03/2023 19:36 CDTWorkstation Name: [id number] CHEST WITH IV [id number] 17:28:20 [facility] : 1980 Sex: FCT [...] Signed By: Jude Calero02/25/2023 17:30 CDTWorkstation Name: [id number] NECK SOFT TISSUE WITH IV [id number] 14:07:41 [facility] : 1980 Sex: [...] Signed By: Natacha Mondragon02/23/2023 14:09 CDTWorkstation Name: [id number], CHEST, WITH [id number] 07:29:00 Unlisted Reason for Exam - Click Yes and Enter Reason Below->No [facility] : 1980 Sex: [...] Nicholas MDReport Verified Da te/Time: 01/20/2023 07:29:13 [id number] 05:13:48 Test Item Value Reference Range Interpretation Comments MAGNESIUM (BEAKER) (test code = 1.7 mg/dL 1.6-2.6 627) Closing Supervisor ID - [id number] 05:13:48 Test Item Value Reference Range Interpretation Comments PHOSPHORUS (BEAKER) (test code = 4.1 mg/dL 2.3-4.7 604) Closing Supervisor ID - MMBASIC METABOLIC [id number] 05:13:47 Test Item Value Reference Range Interpretation [...] not appl icable for dialysis patien ts Closing Supervisor ID - MMBASIC METABOLIC [id number] 06:42:56 Test Item Value Reference Range Interpretation [...] not appl icable for dialysis patien ts Closing Supervisor ID - [id number] 06:42:56 Test Item Value Reference Range Interpretation Comments MAGNESIUM (BEAKER) (test code = 1.8 mg/dL 1.6-2.6 627) Closing Supervisor ID - [id number] 06:42:56 Test Item Value Reference Range Interpretation Comments PHOSPHORUS (BEAKER) (test code = 4.0 mg/dL 2.3-4.7 604) Closing Supervisor ID - ADMINVITAMIN [id number] 06:39:31 Test Item Value Reference Range Interpretation Comments VITAMIN B12 (BEAKER) (test code = 341 pg/mL 213-816 774) Closing Supervisor ID - ADMINIRON, TIBC, % SAT. (WITHOUT FERRITIN)2023-01-19 06:11:34 Test Item Value Reference Range Interpretation Comments IRON (BEAKER) (test code = 547) 22.0 ug/dL 40.0-160.0 L TOTAL IRON BINDING CAPACITY 394 ug/dL 250-450 (BEAKER) (test code = 769) IRON % SATURATION (2) (BEAKER) 6 % 20-55 L (test code = 2590) Closing Supervisor ID - GLCIFWMXAPJDST4171-85-31 06:40:41 Test Item Value Reference Range Interpretation Comments MAGNESIUM (BEAKER) 1.5 mg/dL 1.6-2.6 L Specimen slightly (test code = 627) hemolyzed Closing Supervisor ID - SARAH [id number] 06:40:41 Test Item Value Reference Range Interpretation Comments PHOSPHORUS (BEAKER) 3.6 mg/dL 2.3-4.7 Specimen slightly (test code = 604) hemolyzed Closing Supervisor ID - SARAH WCOMPREHENSIVE METABOLIC [id number] 06:40:41 Test Item Value Reference Range Interpretation [...] not appl icable for dialysis patien ts Closing Supervisor ID - SARAH WCBC W/PLT COUNT & AUTO [id number] 05:43:39 Test Item Value Reference Range Interpretation [...] PERCENT (BEAKER) (test code = 2801) Ethanol [id number] 02:25:00 Test Item Value Reference Range Interpretation Comments Ethanol (test code 176 mg/dL The pharm acological = ETOH) response to blo od alcohol levels mayvary from individual to i ndividual. The fatal ginna ntrationhas been reported t o be >400mg/dL. Complete Blood Count Auto [id number] 22:56:00 Test Item Value Reference Range Interpretation [...] code = NRBCP) 0 % Comprehensive Metabolic [id number] 22:56:00 Test Item Value Reference Range Interpretation [...] 106 U/L 46-116 N = ALP) Ethanol [id number] 22:56:00 Test Item Value Reference Range Interpretation Comments Ethanol (test code 242 mg/dL The pharm acological = ETOH) response to blo od alcohol levels mayvary from individual to i ndividual. The fatal ginna ntrationhas been reported t o be >400mg/dL. Manual Differential, [id number] 22:56:00 Test Item Value Reference Range Interpretation [...] les (Age >41) 1. 8-10.1 mIU/mL Drug Screen,[id number] 22:52:00 Test Item Value Reference Range Interpretation [...] Negative code = UPROP) Coronavirus PCR, COVID19 [id number] 22:52:00 Test Item Value Reference Range Interpretation Comments Coronavirus PCR, For use under Emergency COVID19 Rapid (test Use Authorization (EUA) code = SARSCOV2) only. Coronavirus PCR, Reference Range: COVID19 Rapid (test Negative code = ZJEJTLW13.1) SARS-CoV-2 PCR Result: Negative by RT-PCR (test code = SARS-CoV-2 PCR Result:) COVID-19 Status: AsymptomaticUA, Urinalysis Rflx [id number] 22:52:00 Test Item Value Reference Range Interpretation Comments Color,Urine (test code = UCOL) Yellow Yellow Clarity,Urine (test code = Clear Clear UCLAR) Ph, Urine (test code = UPH) 6.0 5.0-9.0 N Specific [place],Urine (test 1.020 1.005-1.030 N code = USG) [...] A code = ULEU) UF REFLEXUF REFLEXUrine [id number] 22:52:00 Test Item Value Reference Range Interpretation Comments RBC,Urine (test code = URBCUF) 0-2 /HPF 0-2 WBC,Urine (test code = UWBCUF) 0-5 /HPF 0-5 Epithelial Cell,Urine (test 0-5 /HPF 0-5 code = UECUF) Casts,Urine (test code = 0-5 /LPF None Seen UCASTUF) Bacteria,Urine (test code = None Seen /hpf None Seen UBACTUF) UF REFLEXUF REFLEX
[2023-04-03] MEDS ORDERED: NA CHLORIDE 0.9% 1,000 ML ONE (18:31)
--- NOTE | 2023-04-03 18:56 | RAD REPORT ---
EXAM DESCRIPTION: RAD - Chest Single View - 04/03/2023 6:43 pm CLINICAL HISTORY: COUGH COMPARISON: Chest Single View dated 03/24/2023; Chest Single View dated 05/06/2020 FINDINGS: Lines: Tracheostomy. Lungs: No evidence of edema or pneumonia. Pleural: No significant pleural effusions or pneumothorax. Cardiac: The heart size is within normal limits. Mediastinum: Within normal limits. Bones: No acute fractures. Other: None IMPRESSION: No acute cardiopulmonary disease.
[2023-04-03 19:25] LABS: Protime INR 1.14
[2023-04-03 19:26] LABS: Albumin 2.9 g/dL (3.4-5.0); Bilirubin Total 0.8 mg/dL (0.2-1.0); Potassium 4.2 mEq/L (3.5-5.1); Protein, Total 7.5 g/dL (6.4-8.2)
[2023-04-03 19:34] LABS: Absolute Lymphocytes (CBC) 0.8 K/uL (0.7-4.9); Hematocrit 30.5 % (36.0-45.0); Lymphocytes % 5.4 % (15.3-44.8); MCV 85.8 fL (80-100); MPV 7.9 fL (7.6-11.3); RBC Red Blood Cell Count 3.56 M/uL (3.86-4.86)
--- NOTE | 2023-04-03 20:15 | RAD REPORT ---
EXAM DESCRIPTION: CT - Soft Tissue Neck W/Contr CLINICAL HISTORY: pain, swelling COMPARISON: Soft Tissue Neck W/Contr dated 03/29/2023; Soft Tissue Neck W/Contr dated 01/17/[address] scans are performed using dose optimization technique as appropriate and may includ e automated exposure control or mA/KV adjustment according to patient size. FINDINGS: Postoperative changes from glossectomy with free flap reconstruction. Peripherally enhanci ng fluid collection identified on the prior CT at the surgical bed which is just left of midline monique uring 2.5 cm is unchanged. This is favored postoperative rather than residual tumor. Changes of bilat eral lymph node dissection. There is a airway narrowing posteriorly with some pooling of secretions b ut this is not unexpected. A tracheostomy is present . Skin thickening and subcutaneous edema which m ay be both postoperative and from postradiation changes. IMPRESSION: Postoperative/posttreatment findings similar to 03/29/2023 without evidence of an acute process or unexpected changes.
--- NOTE | 2023-04-03 20:19 | RAD REPORT ---
EXAM DESCRIPTION: CT - Thorax Wo Con - 04/03/2023 7:57 pm CLINICAL HISTORY: dyspne COMPARISON: Thorax W/ Con dated 03/29/2023 FINDINGS: Chest Wall: No suspicious thyroid nodules or pathologic lymphadenopathy. Tracheostomy with tip above the brenda in satisfactory position. Lungs: No acute abnormality. Pleura: No significant effusions or pneumothorax. Mediastinum/fabian: No pathologic lymphadenopathy. Pulmonary arteries/Aorta: Limited evaluation without contrast. No aortic aneurysm. Heart: No significant pericardial effusion. Normal heart size. Upper abdomen: No acute abnormality. Bones: No acute abnormality. All CT scans are performed using dose optimization technique as appropriate and may include automated exposure control or mA/KV adjustment according to patient size. IMPRESSION: No acute findings within the chest. The lungs are clear.
--- NOTE | 2023-04-03 20:40 | ER ---
Nurse's Notes [facility] Name: Brii Garcia Age: 43 yrs Sex: Female : 1980 Arrival Date: 04/03/2023 Time: 17:49 Bed 2 Private MD: Diagnosis: Dyspnea Presentation: 04/03 17:54 Chief complaint: EMS states: patient was feeling like her trach inner canula has become ap3 misplaced. patient is 100% SPO2 via trach. EMS established 22g IV in the left forearm. Coronavirus screen: Client presents with at least one sign or symptom that may indicate coronavirus-19. Ebola Screen: No symptoms or risks identified at this time. Initial Sepsis Screen: Does the patient meet any 2 criteria? HR > 90 bpm. Does the patient have a suspected source of infection? No. Patient's initial sepsis screen is negative. Risk Assessment: Do you want to hurt yourself or someone else? Patient reports no desire to harm self or others. Onset of symptoms was April 03, 2023. Care prior to arrival: IV initiated. 22 GA, in the left antecubital area. 17:54 Method Of Arrival: EMS: [facility] ap3 17:54 Acuity: ANG 3 ap3 Triage Assessment: 17:57 General: Appears uncomfortable, Behavior is cooperative, appropriate for age. Pain: ap3 Complains of pain in neck and jaw Pain currently is 10 out of 10 on a pain scale. Neuro: Level of Consciousness is awake, alert, obeys commands, Oriented to person, place, time, situation. Cardiovascular: Patient's skin is warm and dry. Respiratory: Airway via trache. 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 - Social history:: Smoking status: Patient denies any tobacco usage or history of. Screenin:58 [facility] ED Fall Risk Assessment (Adult) History of falling in the last 3 months, ap3 including since admission No falls in past 3 months (0 pts). Abuse screen: Denies threats or abuse. Nutritional screening: No deficits noted. Tuberculosis screening: No symptoms or risk factors identified. Assessment: 17:56 General: RT paged for deep trach suctioning . ap3 19:13 General: report given to ANNE-MARIE Hu and ANNE-MARIE Cortes. ap3 Vital Signs: 17:54 BP 108 / 88; Pulse 108; Resp 18; Temp 99.7(TE); Pulse Ox 100% on trach; Pain 10/10; ap3 18:43 BP 91 / 77; Pulse 99; Pulse Ox 100% on trach; ap3 20:00 BP 97 / 67; Pulse 91; Resp 18; Pulse Ox 100% on R/A; rv 21:00 BP 110 / 71; Pulse 89; Resp 18; Pulse Ox 100% on R/A; rv 21:30 BP 112 / 70; Pulse 95; Resp 19; Temp 98; Pulse Ox 100% on R/A; rv 17:54 Pain Scale: Adult ap3 [place] Coma Score: 21:30 Eye Response: spontaneous(4). Motor Response: obeys commands(6). Verbal Response: rv oriented(5). Total: 15. ED Course: 17:54 Patient arrived in ED. ap3 17:55 Jack Singh MD is Attending Physician. jr11 17:56 Triage completed. ap3 17:58 Respiratory care therapist to see patient. ap3 17:58 Arm band placed on right wrist. ap3 17:58 Patient has correct armband on for positive identification. Bed in low position. Call ap3 light in reach. Side rails up X2. Pulse ox on. NIBP on. 18:18 xray at bedside. ap3 18:45 Chest Single View XRAY In Process Unspecified. EDMS 18:59 Inserted saline lock: 22 gauge in right forearm, using aseptic technique. Blood rs5 collected. 19:00 CBC with Diff Sent. rs5 19:00 CMP Sent. rs5 19:00 Lactate w/ 2H reflex if indic. Sent. rs5 19:00 Protime (+inr) Sent. rs5 19:00 Ptt, Activated Sent. rs5 19:58 CT Chest Wo Con In Process Unspecified. EDMS 20:03 CT Soft Tissue Neck W/contr In Process Unspecified. EDMS 20:39 Marcin Askew, ANNE-MARIE is Primary Nurse. rv 21:59 No provider procedures requiring assistance completed. IV discontinued, intact, rv bleeding controlled, No redness/swelling at site. Pressure dressing applied. 22:00 Provided Education on: SUCTION. rv Administered Medications: 18:24 Drug: NS 0.9% IV 1000 ml Route: IV; Rate: 1 bolus; Site: left forearm; ap3 21:27 Follow up: IV Status: Completed infusion; IV Intake: 1000ml rv 21:27 Drug: Ketorolac IVP 10 mg 10 mg Route: IVP; Site: right forearm; rv 22:00 Follow up: Response: No adverse reaction rv 21:27 Drug: HYDROmorphone IVP 0.5 mg Route: IVP; Site: right forearm; rv 22:00 Follow up: Response: No adverse reaction rv Medication: 22:00 VIS not applicable for this client. rv Intake: 21:27 IV: 1000ml; Total: 1000ml. rv Outcome: 20:39 Discharge ordered by MD. villegas 21:59 Discharged to home ambulatory, with family. rv 21:59 Condition: good 21:59 Discharge instructions given to patient, Instructed on discharge instructions, follow up and referral plans. Demonstrated understanding of instructions, follow-up care. 22:00 Patient left the ED. rv Signatures: Dispatcher [employer] EDMS Vidya Freeman RN RN ap3 Marcin Askew RN RN rv Jack Singh MD MD jr11 Darron Yeh RN RN rs5
--- NOTE | 2023-04-03 20:40 | EDPHYS ---
Physician Documentation [facility] Name: Brii Garcia Age: 43 yrs Sex: Female : 1980 Arrival Date: 04/03/2023 Time: 17:49 Bed 2 Private MD: ED Physician Jack Singh HPI: 04/03 18:14 Patient is a 43-year-old female with multiple visits for shortness of breath clogged up jr11 trach. Patient is status post trach secondary to squamous cell carcinoma. She states that she has been short of breath for the last 2 days increasing neck pain above the trach. No vomiting, patient otherwise at baseline. Per EMS, she was not hypoxic, after hot coughing spell she was 92%. Patient then recovered back above 95.. 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 - Social history:: Smoking status: Patient denies any tobacco usage or history of. ROS: 18:14 All other systems are negative. jr11 Exam: 18:14 Constitutional: appears chronically ill Head/Face: Normocephalic, atraumatic. Eyes: jr11 Extra-ocular motions intact. Lids and lashes normal. Conjunctiva and sclera are non-icteric and not injected. Cornea within normal limits. Periorbital areas with no swelling, redness, or edema. Neck: +trach in place, upper neck with edema and erythema Respiratory: rhonchi but mostly clear Abdomen/GI: Soft, non-tender, with normal bowel sounds. No distension or tympany. No guarding or rebound. No evidence of tenderness throughout. Skin: Warm, dry with normal turgor. Normal color with no rashes, no lesions, and no evidence of cellulitis. MS/ Extremity: Pulses equal, no cyanosis. Neurovascular intact. Full, normal range of motion. Neuro: awake alert moving all x 4 Vital Signs: 17:54 BP 108 / 88; Pulse 108; Resp 18; Temp 99.7(TE); Pulse Ox 100% on trach; Pain 10/10; ap3 18:43 BP 91 / 77; Pulse 99; Pulse Ox 100% on trach; ap3 20:00 BP 97 / 67; Pulse 91; Resp 18; Pulse Ox 100% on R/A; rv 21:00 BP 110 / 71; Pulse 89; Resp 18; Pulse Ox 100% on R/A; rv 21:30 BP 112 / 70; Pulse 95; Resp 19; Temp 98; Pulse Ox 100% on R/A; rv 17:54 Pain Scale: Adult ap3 [place] Coma Score: 21:30 Eye Response: spontaneous(4). Motor Response: obeys commands(6). Verbal Response: rv oriented(5). Total: 15. MDM: 18:00 Patient medically screened. jr11 18:14 Differential Diagnosis clogged trach, PNA, cellulitis . Data reviewed: vital signs, jr11 nurses notes. ED course: EKG interpreted by me shows sinus tachycardia, normal intervals, normal axis.. 20:38 ED course: HR 85, pt at baseline CT to my read, no dislodgment. Per radiologist no jr11 concerning sign of infection. Patient comfortable going home, asking for 1 dose of pain medicine since she sees Tomorrow. 04/03 18:02 Order name: Blood Culture Adult (2) [facility] 04/03 18:02 Order name: CBC with Diff; Complete Time: 19:37 [facility] 04/03 18:02 Order name: CMP; Complete Time: 19:37 [facility] 04/03 18:02 Order name: Lactate w/ 2H reflex if indic.; Complete Time: 20:04 [facility] 04/03 18:02 Order name: Protime (+inr); Complete Time: 19:37 [facility] 04/03 18:02 Order name: Ptt, Activated; Complete Time: 19:37 [facility] 04/03 18:02 Order name: Chest Single View XRAY; Complete Time: 19:04 [facility] 04/03 19:39 Order name: CT Soft Tissue Neck W/contr; Complete Time: 20:20 [facility] 04/03 19:39 Order name: CT Chest Wo Con; Complete Time: 20:20 [facility] 04/03 18:02 Order name: EKG; Complete Time: 18:03 [facility] 04/03 18:02 Order name: Suction; Complete Time: 20:40 [facility] 04/03 18:02 Order name: Accucheck; Complete Time: 20:47 04/03 18:02 Order name: Cardiac monitoring; Complete Time: 18:17 04/03 18:02 Order name: EKG - Nurse/Tech; Complete Time: 18:14 04/03 18:02 Order name: IV Saline Lock - Large Bore; Complete Time: 19:06 04/03 18:02 Order name: Labs collected and sent; Complete Time: 19:06 04/03 18:02 Order name: O2 Per Protocol; Complete Time: 18:11 04/03 18:02 Order name: O2 Sat Monitoring; Complete Time: 18:11 04/03 18:02 Order name: Vital Signs; Complete Time: 18:11 Administered Medications: 18:24 Drug: NS 0.9% IV 1000 ml Route: IV; Rate: 1 bolus; Site: left forearm; ap3 21:27 Follow up: IV Status: Completed infusion; IV Intake: 1000ml rv 21:27 Drug: Ketorolac IVP 10 mg 10 mg Route: IVP; Site: right forearm; rv 22:00 Follow up: Response: No adverse reaction rv 21:27 Drug: HYDROmorphone IVP 0.5 mg Route: IVP; Site: right forearm; rv 22:00 Follow up: Response: No adverse reaction rv Disposition Summary: 04/03/23 20:39 Discharge Ordered Location: Home jr Condition: Stable jr11 Diagnosis - Dyspnea jr11 Followup: jr11 - With: Private Physician - When: 1 - 2 days - Reason: Continuance of care Discharge Instructions: - Discharge Summary Sheet jr11 - Tracheostomy jr11 - How to Clean a Tracheostomy Tube, Adult jr11 - Tracheostomy Tube Safety and Care, Adult jr11 Forms: - Medication Reconciliation Form jr11 - Thank You Letter jr11 - Antibiotic Education jr11 - Prescription Opioid Use jr11 - Patient Portal Instructions jr11 Signatures: Dispatcher [employer] Vidya Martinez RN RN ap3 Marcin Askew RN RN rv Jack Singh MD MD jr11 Corrections: (The following items were deleted from the chart) 18:17 18:14 Constitutional: appears chronically ill Eyes: Negative for injury, pain, redness, jr11 and discharge, ENT: Negative for injury, pain, and discharge, Neck: trach in place, moderate edema upper neck, erythema Respiratory: rhonchi diffusely Abdomen/GI: Negative for abdominal pain, nausea, vomiting Back: Negative for injury and pain, MS/Extremity: Negative for injury and deformity, Skin: Negative for injury, rash, and discoloration, jr11
[2023-04-03] MEDS ORDERED: KETOROLAC 30 MG/ML INJ ONE (21:00)
[2023-04-03] MEDS ORDERED: HYDROMORPHONE HCL 0.5 MG/0.5 ML INJ ONE (21:00)
[2023-04-03 22:55] VITALS: O2SAT 100
[2023-04-03 23:00] VITALS: BP 112/70; TEMP 98
--- NOTE | 2023-04-05 17:41 | EKG ---
Test Date: 2023-04-03 Test Time: 18:09:02 Associate Financial Representative: [place] MEASUREMENT RESULTS: Intervals: Rate: 108 MI: 180 QRSD: 76 QT: 328 QTc: 439 [place]: P: 72 MI: 180 QRS: 59 T: 60 INTERPRETIVE STATEMENTS: Sinus tachycardia Moderate voltage criteria for LVH, may be normal variant Cannot rule out Septal infarct, age undetermined Abnormal ECG Compared to ECG 03/29/2023 04:30:24 Sinus rhythm no longer present Myocardial infarct finding still present Electronically Signed On 04-05-23 17:35:29 CDT by Nicholas Steven
== END 2023-04-03 22:00 | disposition home or self-care (01) ==
LOC: ER 17:49
DX: R06.00 Dyspnea, unspecified (principal); Z85.810 Personal history of malignant neoplasm of tongue
CPT/HCPCS: 96361; 93005; 87040 ×2; 85025; 36415; 85610; 83605; 85730; 80053; 71250; 70491; 71045; 96375; 96374; 99284; Q9967; J1170; J7030

== ENCOUNTER 2023-04-12 05:14 | Emergency (ER) | payer OTHER ==
--- OUTSIDE RECORDS SUMMARY | 2023-04-12 05:21 | XMS REPORT | Continuity of Care Document ---
:1980 Author Organization [facility] t Address [address] [place] [address] Care Team Providers Name Role Phone SUSANNA WICK Attending Clinician Unavailable YENIFER MALLOY Attending Clinician Unavailable CARLOS GRAJEDA Attending Clinician Unavailable Carlos Grajeda MD Attending Clinician [phone] Jose Snyder MD Attending Clinician Demetrius Dugan MD Attending Clinician Yash Fournier MD Attending Clinician [phone] Alvin Alcala Attending Clinician Unavailable Maryann Mclean MD Attending Clinician Susnana Wick MD Attending Clinician Abdoulaye Johnson MD Attending Clinician ABDOULAYE JOHNSON Attending Clinician Unavailable Eloisa XIE, Gypsy Attending Clinician Unavailable Yenifer Malloy Attending Clinician Aruna Packer LMSW Attending Clinician Unavailable Prabha Narvaez Attending Clinician [phone] PRABHA WINN Attending Clinician Unavailable Yolanda KHALIL, Mindy Cobb Attending Clinician [phone] Attending Clinician Unavailable Judit Lau Attending Clinician Meño KHALIL, Mariaa Vitale Attending Clinician Kimberli Sierra MD Attending Clinician KIMBERLI SIERRA Attending Clinician Unavailable Chika Rosa Attending Clinician Unavailable SUSANNA WICK Admitting Clinician Unavailable JUDIT LAU Admitting Clinician Unavailable Payers Payer Name Policy Type Policy Number Effective Date Expiration Date S ource [place] [id number] 2022 00:00:00 Problems Condition Condition Condition Status Onset Resolution Last Treating Co mments Source Name Details Category Date Date Treatment Clinician Date 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 Family History Family Member Diagnosis Comments Start Date Stop Date Source Natural father Lung cancer [facility] Maternal aunt Cancer [facility] Maternal uncle Prostate cancer [facility] Maternal uncle Kidney failure [facility] Natural mother Stomach cancer [facility] Social History Social Habit Start Date Stop Date Quantity Comments Source History of tobacco Cigarette Sm[facility] History [facility]Med Medical [facility] Alcohol intake 2023-03-08 2023-03-08 Ex-drinker [facility]00:00 (finding) Medical Center Exposure to 2023-02-22 2023-03-[address] [facility] SARS-CoV-2 (event) 00:00:00 02:06:00 Medica l Center History [facility] 2023-03-04 2023-03-[address] [facility] Transport Med 00:00:00 00:00:[address] History [facility] 2023-03-04 2023-03-[address] [facility] Housing Unable to 00:00:00 00:00:00 Medical Center Pay History [facility] 2023-03-04 2023-03-[address] [facility] Housing Places 00:00:00 00:00:00 Medical Ce nter Lived History [facility] 2023-03-04 2023-03-[address] [facility] Housing Homeless 00:00:00 00:00:00 Medical Center Last Year Cigarettes smoked 2023-02-23 2023-02-23 [facility] current (pack per 00:00:00 00:00:00 Medical Center day) - Reported Cigarette 2023-02-23 2023-02-[address] [facility] pack-years 00:00:00 00:00:00 Medical Center Tobacco use and 2023-02-23 2023-02-23 Smokeless tobacco [facility] exposure 00:00:00 00:00:00 non-user Medical Center Alcohol Comment 2023-01-18 2023-01-18 every other week[facility] 00:[facility]00 00:00:00 1 can [facility] Center Sex Assigned At [birth year] [...] (5 mg [facility] solution 07:57: total) by [facility] 54 mouth Center every 4 (four) hours as needed for Pain. morphine 10 2022-0 Yes 5mg Take 2.[address] mg/5 mL 7-01 mLs (5 mg [facility] solution 07:57: total) by [facility] 54 mouth Center every 4 (four) hours as needed for Pain. morphine 10 2022-0 Yes 5mg Take 2.[address] mg/5 mL 7-01 mLs (5 mg [facility] solution 07:57: total) by [facility] 54 mouth Center every 4 (four) hours [...] (5 mg [facility] solution 13:57: total) by [facility] 48 mouth Center every 4 (four) hours as needed for Pain. miscellaneo Yes Oral [facility] 6-24 suction [facility] supply Misc 00:00: machine. Mt dical 00 Center miscellaneo [address] [facility] 6-24 suction [facility] supply Misc 00:00: machine. Me dical 00 Center miscellaneo [address] [facility] 6-24 suction [facility] supply Misc 00:00: machine. Mt dical 00 Center miscellaneo [address] [facility] 6-24 suction [facility] supply Misc 00:00: machine. Mt dical 00 Center miscellaneo [address] [facility] 6-24 suction [facility] supply Misc 00:00: machine. Mt dical 00 Center methadone Yes Cancer 2mg Take [address] (DOLOPHINE) 6-23 associated (2 mg L ukes 5 mg/5 mL 00:00: pain total) by [facility] ical solution 00 mouth Center every 12 (twelve) hours. lactulose 0 Yes 20g Q.[id number] Take [address] (CHRONULAC) 6-23 [id number] mLs (20 g [facility] 10 gram/15 00:00: 3D total) by Mt dical mL solution 00 mouth 3 Cente [...] 12 (twelve) hours. lactulose 3-0 Yes 20g Q.[id number] Take [address] (CHRONULAC) 6-23 [id number] mLs (20 g [facility]ukes 10 gram/15 00:00: 3D total) by Mt dical mL solution 00 mouth 3 Cente [...] 12 (twelve) hours. lactulose 3-0 Yes 20g Q.[id number] Take [address] (CHRONULAC) 6-23 [id number] mLs (20 g [facility] 10 gram/15 00:00: 3D total) by Mt dical mL solution 00 mouth 3 Cente [...] 12 (twelve) hours. lactulose 2023-0 Yes 20g Q.[id number] Take [address] (CHRONULAC) 6-23 [id number] mLs (20 g [facility]ukes 10 gram/15 00:00: [...] 12 (twelve) hours. lactulose 3-0 Yes 20g Q.[id number] Take [address] (CHRONULAC) 6-23 [id number] mLs (20 g [facility]ukes 10 gram/15 00:00: 3D total) by Mt dical mL solution 00 mouth 3 Cente r (three) times daily. viscous 3-0 Yes 5mL Swish and [facility] t lidocaine 6-23 spit 5 mLs Luke s 2% (VISCOUS 00:00: every 6 Med ical LIDOCAINE) 00 (six) Center 2 % Soln hours as mucosal needed. solution lactulose 2022-0 Yes 20g Q.[id number] Take [address] (CHRONULAC) 6-23 [id number] mLs (20 g [facility]ukes 10 gram/15 00:00: 3D total) by Mt dical mL solution 00 mouth 3 Cente [...] St -acetaminop 5-19 05-19 mouth [facility] hen ([place] :54: 00:00 every 6 Med ical 7.5-325) 24 :00 (six) Center 7.5-325 mg hours as per tablet needed for Pain (kimberlyn pain) Liquid form. HYDROcodone 2022- No Take by I St -acetaminop 5-19 05-19 mouth [facility] ([place] 09:54: 00:00 every 6 Med ical 7.5-325) 24 :00 (six) Center 7.5-325 mg hours as per tablet needed for Pain (kimberlyn pain) Liquid form. HYDROcodone 2022- No Take by I St -acetaminop 5-19 05-19 mouth [facility] ([place] 09:54: 00:00 every 6 Med ical 7.5-325) 24 :00 (six) Center 7.5-325 mg hours as per tablet needed for Pain (kimberlyn pain) Liquid form. HYDROcodone 2022- No Take by I St -acetaminop 5-19 05-19 mouth [facility] 09:[facility]: 00:00 every 6 Med ical [...] St -acetaminop 5-19 05-19 mouth [facility] 09:54: 00:00 every 6 Med ical [...] [facility] (ZOFRAN-ODT 5-19 06-18 tablet (8 Rcista kes ) 8 MG 00:00: 23:59 mg [...] kg Heart rate 2023-03-13 11:21:03 77 /min [facility] Body temperature 2023-03-13 11:21:03 36.78 Margi [facility] Respiratory rate 2023-03-13 11:21:03 17 /min [facility] Oxygen saturation in 2023-03-13 11:21:03 98 /min [facility] Arterial blood by Medical Ce nter Pulse oximetry Systolic blood 2023-03-13 11:20:30 97 mm[Hg] [facility] Diastolic blood 2023-03-13 11:20:30 68 mm[Hg] [facility] Heart rate 2023-03-10 07:45:31 75 /min [facility] Respiratory rate 2023-03-10 07:45:31 16 /min [facility] Oxygen saturation in 2023-03-10 07:45:31 100 /min [facility] Arterial blood by Medical Ce nter Pulse oximetry Body temperature 2023-03-10 07:44:56 36.94 Margi [facility] Systolic blood 2023-03-10 07:44:15 119 mm[Hg] [facility] Diastolic blood 2023-03-10 07:44:15 86 mm[Hg] [facility] Heart rate 2023-03-09 11:34:32 74 /min [facility] Respiratory rate 2023-03-09 11:34:32 18 /min [facility] Oxygen saturation in 2023-03-09 11:34:32 99 /min [facility] Arterial blood by Medical Ce nter Pulse oximetry Body temperature 2023-03-09 11:34:02 36.61 Margi [facility] Systolic blood 2023-03-09 11:33:45 124 mm[Hg] [facility] Diastolic blood 2023-03-09 11:33:45 90 mm[Hg] [facility] Systolic blood 2023-03-08 10:30:00 136 mm[Hg] [facility] Diastolic blood 2023-03-08 10:30:00 100 mm[Hg] [facility] Heart rate 2023-03-08 10:30:00 64 /min [facility] Respiratory rate 2023-03-08 10:30:00 11 /min [facility] Oxygen saturation in 2023-03-08 10:30:00 99 /min [facility] Arterial blood by Medical Ce nter Pulse oximetry Body temperature 2023-03-08 09:54:00 36 Margi [facility] Body height 2023-03-03 12:40:00 152.4 cm [facility] Body weight 2023-03-03 12:40:00 54.885 kg [facility] BMI 2023-03-03 12:40:00 23.63 kg/m2 [facility] Body height 2023-02-28 14:00:00 154.9 cm [facility] Body weight 2023-02-28 14:00:00 56.246 kg [facility] BMI 2023-02-28 14:00:00 23.43 kg/m2 [facility] Systolic blood 2023-02-24 08:13:00 120 mm[Hg] [facility] Diastolic blood 2023-02-24 08:13:00 97 mm[Hg] [facility] Heart rate 2023-02-24 08:13:00 88 /min [facility] Body height 2023-02-24 08:13:00 154.9 cm [facility] Body weight 2023-02-24 08:13:00 56.337 kg [facility] BMI 2023-02-24 08:13:00 23.47 kg/m2 [facility] Oxygen saturation in 2023-02-24 08:13:00 100 /min [facility] Arterial blood by Medical Ce nter Pulse oximetry Body temperature 2023-02-23 08:02:00 37 Margi [facility] Systolic blood 2023-01-20 07:55:00 136 mm[Hg] [facility] Diastolic blood 2023-01-20 07:55:00 82 mm[Hg] [facility] Heart rate 2023-01-20 07:55:00 71 /min [facility] Body temperature 2023-01-20 07:55:00 36.44 Margi [facility] Respiratory rate 2023-01-20 07:55:00 18 /min [facility] Oxygen saturation in 2023-01-20 07:55:00 100 /min [facility] Arterial blood by Medical Ce nter Pulse oximetry Systolic blood 2023-01-19 12:52:00 128 mm[Hg] [facility] Diastolic blood 2023-01-19 12:52:00 85 mm[Hg] [facility] Heart rate 2023-01-19 12:52:00 66 /min [facility] Body temperature 2023-01-19 12:52:00 36.72 Margi [facility] Respiratory rate 2023-01-19 12:52:00 18 /min [facility] Oxygen saturation in 2023-01-19 12:52:00 100 /min [facility] Arterial blood by Medical Ce nter Pulse oximetry Body height 2023-01-18 04:00:00 154.9 cm [facility] Body weight 2023-01-18 04:00:00 57.561 kg [facility] BMI 2023-01-18 04:00:00 23.98 kg/m2 [facility] Procedures Procedure Date / Time Performing Clinician Source Performed GLOSSECTOMY, TOTAL 2023-03-14 07:30:00 Susanna Wick [facility] DISSECTION, NECK, RADICAL 2023-03-14 07:30:00 Susanna Wick Eddie [facility] SKIN FLAP PROCEDURE, 2023-03-14 07:30:00 Vinh Alcocer [facility] FREE FLAP PROCEDURE, 2023-03-14 07:30:00 Vinh Alcocer [facility] LOWER EXTREMITY, WITH Medical Ce nter MICROVASCULAR ANASTOMOSIS FLAP PROCEDURE, MUSCLE, 2023-03-14 07:30:00 Vinh Alcocer [facility] CREATION, FLAP, ROTATION 2023-03-14 07:30:00 Vinh Alcocer [facility] POCT-GLUCOSE METER 2023-03-13 11:44:00 Susanna Wick [facility] POCT-GLUCOSE METER 2023-03-13 06:05:00 [facility] 2023-03-13 03:53:00 [facility] MAGNESIUM 2023-03-13 03:53[facility] 2023-03-13 03:53:00 [facility] PO[facility]SE [facility] 2023-03-13 00:08:00 Susanna Wick [facility] POCT-GLUCOSE METER 2023-03-12 15:54:00 Susanna Wick [facility] POCT-GLUCOSE METER 2023-03-12 12:22:00 Susanna Wick [facility] POCT-GLUCOSE METER 2023-03-12 06:14:00 Susanna Wick [facility] BASIC METABOLIC PANEL 2023-03-12 03:31:00 [facility] MAGNESIUM 2023-03-12 03:31:00 [facility] 2023-03-12 03:31:00 [facility] PO[facility]UCOSE [facility]ER 2023-03-11 23:54:00 Susanna Wick [facility] POCT-GLUCOSE METER 2023-03-11 16:29:00 Debra [facility] POCT-GLUCOSE METER 2023-03-11 12:28:00 Debra [facility] POCT-GLUCOSE METER 2023-03-11 06:03:00 Susanna Wick [facility] BASIC METABOLIC PANEL 2023-03-11 04:02:00 [facility] 2023-03-11 04:02:00 Cayden [facility] PHOSPHORUS 2023-03-11 04:02:00 Cayden [facility] BASIC METABOLIC PANEL 2023-03-10 06:07:00 [facility] MAGNESIUM 2023-03-10 06:07:00 Cayden [facility] PHOSPHORUS 2023-03-10 06:07:00 Cayden [facility] POCT-GLUCOSE METER 2023-03-10 05:58:00 Susanna Wick [facility] POCT-GLUCOSE METER 2023-03-09 23:19:00 Debra [facility] POCT-GLUCOSE METER 2023-03-09 17:49:00 Susanna Wick [facility] POCT-GLUCOSE METER 2023-03-09 11:35:00 Susanna Wick [facility] POCT-GLUCOSE METER 2023-03-09 06:08:00 Susanna Wick [facility] CBC W/PLT COUNT & AUTO 2023-03-09 04:54:00 Cayden [facility] BASIC METABOLIC PANEL 2023-03-09 04:54:00 [facility] MAGNESIUM 2023-03-09 04:54:00 Cayden [facility] PHOSPHORUS 2023-03-09 04:54:00 Cayden [facility] ABORH, MANUAL 2023-03-09 04:54:00 Cayden [facility] CBC W/PLT COUNT & AUTO 2023-03-09 04:54:00 [facility]den [facility] POCT-GLUCOSE METER 2023-03-08 23:36:00 [facility] PO[facility]SE [facility]ER 2023-03-08 17:43:00 Debra [facility] POCT-GLUCOSE METER 2023-03-08 11:29:00 Susanna Wick [facility] INSERTION, GASTROSTOMY 2023-03-08 07:55:00 Jose Snyder [facility] TUBE, LAPAROSCOPIC Medical Cente r POCT , URINE 2023-03-08 07:31:00 Sofie Blackwood [facility] TYPE AND SCREEN, 2023-03-08 07:28:00 Jose Snyder [facility] POCT-GLUCOSE METER 2023-03-08 05:51:00 Debra [facility] CBC W/PLT COUNT & AUTO 2023-03-08 03:29:00 [facility] BASIC METABOLIC PANEL 2023-03-08 03:29:00 [facility] MAGNESIUM 2023-03-08 03:29:00 [facility] 2023-03-08 03:29:00 [facility] CBC W/PLT COUNT & AUTO 2023-03-08 03:29:00 Lito Hernandez [facility], I [facility] DIFFERENTIAL [facility] POCT-GLUCOSE METER 2023-03-07 23:30:00 Debra [facility] POCT-GLUCOSE METER 2023-03-07 17:42:00 Debra [facility] POCT-GLUCOSE METER 2023-03-07 12:05:00 Debra [facility] POCT-GLUCOSE METER 2023-03-07 06:28:00 Debra [facility] CBC W/PLT COUNT & AUTO 2023-03-07 04:54:00 [facility] BASIC METABOLIC PANEL 2023-03-07 04:54:00 [facility] 2023-03-07 04:54:00 CaydenZak [facility] PHOSPHORUS 2023-03-07 04:54:00 Cayden [facility] CBC W/PLT COUNT & AUTO 2023-03-07 04:54:00 Lito Hernandez [facility], I [facility] DIFFERENTIAL [facility] POCT-GLUCOSE METER 2023-03-06 23:58:00 Susanna Wick [facility] POCT-GLUCOSE METER 2023-03-06 17:09:00 Susanna Wick [facility] SCREEN, URINE 2023-03-06 14:44:00 Jose Snyder [facility] POCT-GLUCOSE METER 2023-03-05 16:54:00 Debra [facility] POCT-GLUCOSE METER 2023-03-05 12:26:00 Debra [facility] CBC W/PLT COUNT & AUTO 2023-03-05 05:07:00 Chadd Clemente [facility] COMPREHENSIVE METABOLIC 2023-03-05 05:07:00 Chadd Clemente [facility] PANEL [facility] PREALBUMIN 2023-03-05 05:07:00 Chadd Clemente [facility] APTT 2023-03-05 05:07:00 Chadd Clemente [facility] PROTHROMBIN TIME/INR 2023-03-05 05:07:00 Chadd Clemente [facility] CBC W/PLT COUNT & AUTO 2023-03-05 05:07:00 hCadd Clemente [facility] HC LAB HIV-1 AG W/HIV-1&2 2023-03-04 12:31:00 Fall, Nakul Justice [facility] HEPATITIS C ANTIBODY 2023-03-04 12:31:00 Fall, Nakul Justice [facility] PREALBUMIN 2023-03-04 12:31:00 Nakul Edmond [facility] XR ABDOMEN/KUB 1 VIEW 2023-03-03 18:48:00 Rick Ball [facility] LARYNGOSCOPY, WITH BIOPSY 2023-03-03 16:15:00 Susanna Wick [facility] LARYNGOSCOPY, WITH BIOPSY 2023-03-03 14:48:00 Susanna Wick [facility] POCT , URINE 2023-03-03 13:08:00 Maryann Mclean [facility] CT CHEST WITH IV CONTRAST 2023-02-23 12:27:[address] [facility] CT NECK SOFT TISSUE WITH 2023-02-23 12:27:31 Prabha Winn [facility] IV CONTRAST [facility] XT NORMAL BLOOD (TEMPUS) 2023-02-23 10:54:00 Carlos Grajeda [facility] BASIC METABOLIC PANEL 2023-01-20 04:17:00 Mariaa Wilder [facility] MAGNESIUM 2023-01-20 04:17:00 [facility]23-01-20 04:17:00 [facility] BAS[facility] MET[facility]OLIC PANEL 2023-01-19 05:08:00 Mariaa Wilder [facility] MAGNESIUM 2023-01-19 05:08:00 Mariaa Wilder [facility] PHOSPHORUS 2023-01-19 05:08:00 [facility] VITAMIN B12 2023-01-19 05:08:00 Meño [facility] IRON, TIBC, % SAT. 2023-01-19 05:08:00 Mariaa Wilder [facility] (WITHOUT FERRITIN) Medical Cente r CT CHEST WITH IV CONTRAST 2023-01-18 14:51:00 Cesia Lau [facility] CBC W/PLT COUNT & AUTO 2023-01-18 05:18:[address] [facility] COMPREHENSIVE METABOLIC 2023-01-18 05:18:[address] [facility] MAGNESIUM 2023-01-18 05:18:[address] [facility] PHOSPHORUS 2023-01-18 05:18:00 [facility] CBC W/PLT COUNT & AUTO 2023-01-18 05:18:00 Shanae Laualfonso Hurd [facility] Plan of Care Planned Activity Planned [...] Medica l Center cervix (procedure) [code = 469158088] Future Scheduled 2019-04-[address] [facility] 00:00:00 malignant neoplasm of Medica l Center cervix (procedure) [code = 342773922] Future Scheduled 2019-04-[address] [facility] Test 00:00:00 malignant neoplasm of Medica [facility] Center cervix (procedure) [code = 993970050] Future Scheduled 2019-04-[address] [facility] Test 00:00:00 malignant neoplasm of Medica l Center cervix (procedure) [code = 499794508] Future Scheduled 2019-04-[address] [facility] Test 00:00:00 malignant neoplasm of Medica l Center cervix (procedure) [code = 060786444] Future Scheduled 2019-04-[address] [facility] Test 00:00:00 malignant neoplasm of Medica l Center cervix (procedure) [code = 143650655] Future Scheduled [address] [facility] 00:00:00 malignant neoplasm of Medica l Center cervix (procedure) [code = 215507971] Future Scheduled [address] [facility] Test 00:00:00 malignant neoplasm of Medica l Center cervix (procedure) [code = 834601014] Future Scheduled [address] [facility] Test 00:00:00 malignant neoplasm of Medica l Center cervix (procedure) [code = 860566877] Future Scheduled [address] [facility] Test 00:00:00 malignant neoplasm of Medica l Center cervix (procedure) [code = 688516864] Future Scheduled [address] [facility] Test 00:00:00 malignant neoplasm of Medica l Center cervix (procedure) [code = 974194879] Future Scheduled [address] [facility] Test 00:00:00 malignant neoplasm of Medica l Center cervix (procedure) [code = 992972037] Future Scheduled [address] [facility] Test 00:00:00 malignant neoplasm of Medica l Center cervix (procedure) [code = 249464677] Future Scheduled [address] [facility] Test 00:00:00 malignant neoplasm of Medica l Center cervix (procedure) [code = 668027964] Future Scheduled [address] [facility] Test 00:00:00 (procedure) [code = Medical Center 94521645] Future Scheduled [address] [facility] Test 00:00:00 (procedure) [code = Medical Center 60731231] Future Scheduled [address] [facility] Test 00:00:00 (procedure) [code = [facility] 36546346] Future Scheduled [address] [facility] Test 00:00:00 (procedure) [code = [facility] 94084375] Future Scheduled [address] [facility] Test 00:00:00 (procedure) [code = Medical Center 45360105] Future Scheduled [address] [facility] Test 00:00:00 (procedure) [code = Medical Center 18664657] Future Scheduled [address] [facility] Test 00:00:00 (procedure) [code = Medical Center 14572338] Future Scheduled [address] [facility] Test 00:00:00 (procedure) [code = Medical Center 56802722] Future Scheduled [address] [facility] Test 00:00:00 (procedure) [code = Medical Center 59550986] Future Scheduled [address] [facility] Test 00:00:00 (procedure) [code = Medical Center 39247810] Future Scheduled [address] [facility] Test 00:00:00 (procedure) [code = Medical Center 59823902] Future Scheduled [address] [facility] Test 00:00:00 (procedure) [code = Medical Center 51429680] Future Scheduled 2001 DTAP/TDAP/TD VACCINES CH I [...] Type Clinicians Facility Department ID 2023-03-09 Outpatient [facility] Surgery [id number] [facility] 08:48:52 2023-03-03 Inpatient YOLANDE BARAJAS [facility] [id number] [facility] 18:30:29 SUSANNA 2023-06-05 2023-06-05 Outpatient BHAVIN [facility] [id number] [facility] 00:00:00 00:00:00 2023-05-05 2023-05-05 Outpatient BHAVIN [facility] [id number] [facility] 00:00:00 00:00:00 2023-04-12 2023-04-12 Outpatient BHAVIN MALLOY [facility] [id number] [facility] 00:00:00 00:00:00 YENIFER 2023-04-12 2023-04-12 Outpatient BHAVIN GRAJEDA [facility] [id number] [facility] 00:00:00 00:00:00 CARLOS 2023-04-04 2023-04-04 Outpatient BHAVIN [facility] [id number] [facility] 06:46:17 06:46:17 2023-03-03 2023-03-22 [facility] [id number] [facility] 12:21:00 18:52:00 SUSANNA 2023-03-13 2023-03-13 Outpatient BHAVIN GRAJEDA [facility] [id number] [facility] 00:00:00 00:00:00 CARLOS 2023-03-10 2023[facility]-10 [facility] [id number] 12:00:00 12:00:00 Encounter Carlos Hernández [facility] 2023-03-10 2023-03-10 Outpatient [facility] [facility] [id number] [facility] 00:00:00 00:00:00 CARLOS 2023-03-10 2023-03-10 Outpatient BHAVIN MALLOY [facility] [id number] [facility] 00:00:00 00:00:00 YENIFER 2023-03-08 2023-03-08 Surgery Lillian [facility] [id number] 08:00:00 10:03:00 Jose [facility] 2023-03-08 2023-03-08 Anesthesia Demetrius Dugan [facility] [id number] [facility] [facility] 07:56:00 09:55:00 Event Shantanu Malkaambrosio Maurer [facility] 2023-03-05 2023-03-05 Anesthesia Alvin Alcala [facility] [id number] 19:31:18 19:31:18 Event [facility] 2023-03-04 2023-03-04 Travel [facility] [id number] [facility] 00:[facility]00 00:00:00 [facility] 2023-03-03 2023-03-03 Anesthesia Caridad [facility] [id number] 16:11:00 17:19:00 [facility] 2023-03-03 Surgery Dbera [facility] [id number] 13:48:00 15:23:00 [facility] 2023-03-01 2023-03-01 Procedure Abdoulaye Johnson [facility] [id number] 14:00:00 15:00:00 visit Debra, Susanna [facility] 2023-03-01 2023-03-01 Travel [facility] [id number] [facility] 00:[facility]:00 00:00:00 [facility] 2023-02-28 2023-02-28 Outpatient EL YOLANDE JOHNSON [facility] [id number] SLE 11:39:48 11:39:48 ABDOULAYE 2023-02-28 2023-02-28 Outpatient EL [facility] [id number] [facility] 00:00:00 00:00:00 2023-02-28 2023-02-28 Telephone Eloisa [facility] [id number] 00:00:00 00:00:00 Gypsy [facility] 2023-02-28 2023-02-28 Travel [facility] [id number] [facility] 00:00:00 00:00:00 [facility] 2023-02-24 2023-02-24 Office Mellissa [facility] [id number] 08:00:00 10:46:[address] [facility] 2023-02-24 2023-02-24 Outpatient YOLANDE MONET SLE [id number] SLEDarryn 07:59:33 10:46:55 [place] 2023-02-24 2023-02-24 Outside Nicci, [facility] [id number] 00:00:00 00:00:[address] [facility] 2023-02-24 2023-02-24 Telephone Birdie, [facility] [id number] 00:00:00 00:00:00 [facility] 2023-02-23 2023-02-23 Hospital Lostnc, [facility] [id number] 11:38:18 23:59:[address] [facility] 2023-02-23 2023-02-23 Outpatient BHAVIN WINN SLEDarryn [facility] [id number] [facility] 11:38:18 23:59:00 [facility] 2023-02-23 2023-02-23 [facility] [id number] 11:37:51 11:37:[address] [facility] 2023-02-23 2023-02-23 Outpatient BHAVIN WINN SLEDarryn [facility] [id number] [facility] 11:37:51 11:37:51 [facility] 2023-02-23 2023-02-23 Office Nicci, [facility] [id number] 08:00:00 11:23:03 [facility] 2023-02-23 2023-02-23 Outpatient BHAVIN GRAJEDA [facility] [id number] [facility] 07:59:25 11:23:03 [facility] 2023-02-23 2023-02-23 Treatment Grajeda, [facility] [id number] 10:35:00 10:50:00 [facility] 2023-02-23 2023-02-23 Outpatient EL [facility] [id number] SLE 10:44:57 10:44:57 2023-02-23 2023-02-23 Outpatient EL [facility] SLE [id number] [facility] 00:00:00 00:00:00 2023-02-23 2023-02-23 Orders Yolanda, [facility] [id number] 00:00:00 00:00:00 Only [facility] 2023-02-23 2023-02-23 Documentat Kurt [facility] [id number] 00:00:00 00:00:00 ion [facility] 2023-02-21 2023-02-21 Orders Lostak, [facility] [id number] 00:00:00 00:00:00 Only [facility] 2023-02-15 2023-02-15 Telephone Nicci [facility] [id number] 00:00:00 00:00:00 [facility] 2023-01-18 2023-01-20 [facility] [id number] 03:16:00 12:00:00 Encounter Mariaa Wilder [facility] 2023-01-18 2023-01-20 Inpatient ER CAREN [facility] Oncology [id number] SLE 03:16:00 12:00:00 KIMBERLI 2023-01-18 2023-01-18 Outpatient EL NICCI [facility] [id number] SLE 00:00:00 00:00:00 [facility] 2023-01-18 2023-01-18 Travel [facility] [id number] [facility] 00:00:00 00:00:00 [facility] 2022-05-12 2022-05-12 Emergency [facility] [id number] [facility] 21:57:00 21:57:00 44 2022-05-12 2022-05-12 Emergency Emergency Moe, [facility] [id number] [facility] 21:57:00 21:57:00 Amir 44 Results Test Description Test Time Test Comments Results Result [facility] e Comments TISSUE EXAM 2023-03-24 Surgical Pathology Report 18:48:03 Case: [id number] Authorizing Provider: Susanna Wick MD Collected: 03/14/2023 09:04 AM Ordering Location: [address] Received: 03/15/2023 02:25 PM Service Pathologist: [...] CARCINOMA (0/22) Signing Pathologist Direct Phone Line: [phone] y signed by Eb Toney MD on 03/24/2023 at 6:48 PMRe-excision of the positive margins (floor of mouth, retromolar trigone, right base of tongue) are negative. Clinical correlation is recommended for the significance of the cauterized tumor at right soft tissue margin/positive margin. ORAL CAVITYLIP AND ORAL CAVITY: INCISIONAL BX, EXCISIONAL BX, RESECTION - All Zyexmsrla9md Edition - Protocol posted: 08/20/2021PECIMEN Procedure: Glossectomy: [...] ADDITIONAL FINDINGS Additional Findings: Epithelial hyperplasia A. 71014B. 34128Y. 30697H. 84002, 60496 x 1, 65938 x 5, 13517 x 1, 05394 x 2E. 31163, 86918 x 1F. 07783D. 69900, 85270H. 52324 69514, 21144 x 1, 54845 x 1I. 95053, 32158 x 1Tongue cancerGlossectomy and bilateral neck lymph node dissectionA. Neck The specimen is received in formalin, labeled with the patient's information and "neck" 3.0 x 2.1 x 0.6 cm piece of gill and yellow fibrofatty tissue. 3 lymph nodes are identified within the specimen, ranging from 0.4 to 0.5 cm in greatest dimension. The cut surfaces are igll-red. The lymph nodes are submitted as follows.A1-1 [...] cut surface. The lymph nodes and a artists' booking representative section of this gland are submitted as described below.B1-1 possible lymph node, bisectedB2-1 lymph node, bisectedB3-1 lymph node, trisectedB 4-1 lymph node, bisectedB5-artists' booking representative section of glandC. Neck, LeftPart C [...] node, sectionedC4-1 lymph node, bisectedC5-1 whole possible nodeC6-artists' booking representative section of glandD. Soft Tissue, OtherThe [...] base of tongue (yellow at tip and anterior)E32-yrajy 2, start of xdrtakllmuQ05- slice 3, continuity of kseifwqkohK59- slice 4, continuity of nmsnwpxyhhM01- slice 5, continuity of chjmdkxgtoI09- slice 6, continuity of pdeludkszsW09- slice 7- mass, closest deep flccxlJ83- slice 9, Mass, with the closest left soft tissue mpbzpoG90- Slice 10, artists' booking representative section of massD20- Slice 11, tumor abutting right soft sfeiljT83- D24- base of tongue, perpendicular sections, right side, with closest tumor to base of dicqtkF26-J03- artists' booking representative sections of mynbuwfrgnZ19- artists' booking representative sections of uvulaE. Soft Tissue, Other [...] node, bisectedF8-1 lymph node, bisectedF9-1 lymph node, owyaqqmqI27-7 lymph node, ydrapldmR59-8 lymph node, bisectedF 12-1 lymph node, bisectedF 13-4 whole possible qlqdrX96-1 whole possible nodesG. Soft Tissue, Otherspecimen received [...] lymph nodesI8-4 whole lymph nodesI9-4 whole lymph vmwsqM43-7 whole lymph nodesD. Soft Tissue, OtherFROZEN SECTIONSubtotal [...] the use of immunohistochemistry or special stains.D18, R58GF88 & D2-40: squkoiotA88- syyhjysjI7MV75- haenwgptQ41- negative I10P40- negativeControl Slides Examined: In-house known positive controls were evaluated along with the test tissue. These control slides run alongside of the patients sample show appropriate staining. Internal positive and negative controls when available are evaluated Immunohistochemistry technical testing was performed at [facility], Pathology Laboratory where it was developed and [...] qualified to perform high complexity clinical laboratory testing.[facility], Department of Pathology, [address] [place] [address], [facility], [address] [place] [address], [facility], [address] [place] [address], POCT-GLUCOSE METER 2023-03-22 12:40:41 Test Item Value Reference Range Interpretation Comme nts POC-GLUCOSE METER (BEAKER) 107 mg/dL 70-110 : TESTED AT [facility] [address] [facility] (test code = 1538) [facility], [address]: Finisher [employer]asterboard/Techni federico ID = [id number] for TIRSO JAVIER [id number] 07:32:41 Test Item Value Reference Range Interpretation Comments MAGNESIUM (BEAKER) (test code = 2.0 mg/dL 1.6-2.6 627) Finisher [employer] ID - [id number] 07:32:41 Test Item Value Reference Range Interpretation Comments PHOSPHORUS (BEAKER) (test code = 5.2 mg/dL 2.3-4.7 H 604) Finisher [employer] ID - EOOBASIC METABOLIC [id number] 07:32:40 Test Item Value Reference Range Interpretation [...] (test code = 697) EGFR (BEAKER) 117 Interpretati on of eGFR (test code = [...] not appl icable for dialysis patishiraz khan [employer] ID - EOOPOCT-GLUCOSE [id number] 06:26:25 Test Item Value Reference Range Interpretation Comments POC-GLUCOSE METER 84 mg/dL 70-110 : TESTED A T [facility] [address] (BEAKER) (test code = [place], 1538) [address]: Finisher [employer]asterboard/Techni federico ID = [id number] for SEMI ENHANG CBC (HEMOGRAM ONLY)2023-03-22 06:07:07 [...] 0-0 (BEAKER) (test code = 413) POCT-GLUCOSE [id number] 23:51:48 Test Item Value Reference Range Interpretation Comments POC-GLUCOSE METER 127 mg/dL 70-110 H : TESTED A T [facility] 67[address] (BEAKER) (test code = [facility], 1538) [address]: Finisher [employer]/Techni federico ID = [id number] for SE FADUMO GELLERE POCT-GLUCOSE [id number] 15:58:20 Test Item Value Reference Range Interpretation Comments POC-GLUCOSE METER 101 mg/dL 70-110 : TESTED A T [facility] [address] (BEAKER) (test code = [facility], 1538) [address]: Finisher [employer]/Techni federico ID = [id number] for Al rahel, Sonali POCT-GLUCOSE [id number] 13:10:10 Test Item Value Reference Range Interpretation Comments POC-GLUCOSE METER 102 mg/dL 70-110 : TESTED A T [facility] 67[address] (BEAKER) (test code = [facility], 1538) [address]: Finisher [employer]/Techni federico ID = [id number] for Al rahel, Sonali POCT-GLUCOSE [id number] 06:57:42 Test Item Value Reference Range Interpretation Comments POC-GLUCOSE METER 98 mg/dL 70-110 : TESTED A T [facility] 67[address] (BEAKER) (test code = [facility], 1538) 7[address]: Finisher [employer]asterboard/Techni federico ID = [id number] for SEMI ENFADUMOE [id number] 06:09:48 Test Item Value Reference Range Interpretation Comments MAGNESIUM (BEAKER) (test code = 1.9 mg/dL 1.6-2.6 627) [employer]isher [employer] ID - SARAH [id number] 06:09:48 Test Item Value Reference Range Interpretation Comments PHOSPHORUS (BEAKER) (test code = 4.2 mg/dL 2.3-4.7 604) Finisher [employer] ID - SARAH WBASIC METABOLIC [id number] 06:09:47 Test Item Value Reference Range Interpretation [...] not appl icable for dialysis patien ts Finisher [employer] ID - SARAH [facility] (HEMOGRAM ONLY)2023-03-21 05:41:00 Test Item Value Reference [...] 0-0 (BEAKER) (test code = 413) POCT-GLUCOSE [id number] 02:33:24 Test Item Value Reference Range Interpretation Comments POC-GLUCOSE METER 80 mg/dL 70-110 : TESTED A T [facility] 67[address] (BEAKER) (test code = [facility], 1538) [address]: Finisher [employer]asterboard/Techni federico ID = [id number] for Sue Brito POCT-GLUCOSE [id number] 18:37:31 Test Item Value Reference Range Interpretation Comments POC-GLUCOSE METER 84 mg/dL 70-110 : TESTED A T [facility] 6720 (BEAKER) (test code = [facility], 1538) 8[address]: Finisher [employer]asterboard/Techni federico ID = [id number] for Power macias Angela POCT-GLUCOSE [id number] 13:00:04 Test Item Value Reference Range Interpretation Comments POC-GLUCOSE METER 91 mg/dL 70-110 : TESTED A T [facility] 67[address] (BEAKER) (test code = [facility], 1538) 214[address]: Finisher [employer]board/Techni federico ID = [id number] for Power macias, Angela [id number] 06:24:55 Test Item Value Reference Range Interpretation Comments PHOSPHORUS (BEAKER) (test code = 3.2 mg/dL 2.3-4.7 604) Finisher [employer] ID - EOOBASIC METABOLIC [id number] 06:24:54 Test Item Value Reference Range Interpretation [...] G3b Moderately to s everely 30-44 G4 Sever ly decreased 15-29 G5 Kidney failure <15Repo rted eGFR is based on the CKD-EPI 2020 equation t hat does not use a race coefficientEsti mated GFR is not as accur ate as Creatinine Clementine robson in predicting glom erular filtration rate . Estimated GFR is not appl icable for dialysis patien ts Finisher [employer] ID - [id number] 06:24:54 Test Item Value Reference Range Interpretation Comments MAGNESIUM (BEAKER) (test code = 1.9 mg/dL 1.6-2.6 627) Finisher [employer] ID - EOOPOCT-GLUCOSE [id number] 05:44:23 Test Item Value Reference Range Interpretation Comments POC-GLUCOSE METER 73 mg/dL 70-110 : TESTED A T [facility] 6720 (BEAKER) (test code = PAVAN William [facility], 1538) [address]: Finisher [employer]asterboard/Techni federico ID = [id number] for Ramiro Pitts CBC (HEMOGRAM ONLY)2023-03-20 05:41:41 [...] 0-0 (BEAKER) (test code = 413) POCT-GLUCOSE [id number] 01:11:53 Test Item Value Reference Range Interpretation Comments POC-GLUCOSE METER 99 mg/dL 70-110 : TESTED A T [facility] 6720 (BEAKER) (test code = [facility], 1538) 08774: Finisher [employer] And [employer]asterboard/Techni federico ID = [id number] for Ramiro Pitts POCT-GLUCOSE [id number] 18:05:19 Test Item Value Reference Range Interpretation Comments POC-GLUCOSE METER 141 mg/dL 70-110 H : TESTED A T [facility] 6720 (BEAKER) (test code = [facility], 1538) [address]: Finisher [employer] And [employer]asterboard/Techni federico ID = [id number] for Ok makenna, Avery POCT-GLUCOSE [id number] 05:30:38 Test Item Value Reference Range Interpretation Comments POC-GLUCOSE METER 139 mg/dL 70-110 H : TESTED A T [facility] 67[address] (BEAKER) (test code = [facility], 1538) 61997: Finisher [employer]asterboard/Techni federico ID = [id number] for Ad ams, Kimetra [id number] 02:57:20 Test Item Value Reference Range Interpretation Comments MAGNESIUM (BEAKER) (test code = 1.9 mg/dL 1.6-2.6 627) [id number] 02:57:20 Test Item Value Reference Range Interpretation Comments PHOSPHORUS (BEAKER) (test code = 3.7 mg/dL 2.3-4.7 604) BASIC METABOLIC [id number] 02:57:19 Test Item Value Reference Range Interpretation [...] 0-0 (BEAKER) (test code = 413) POCT-GLUCOSE [id number] 23:35:47 Test Item Value Reference Range Interpretation Comments POC-GLUCOSE METER 146 mg/dL 70-110 H : TESTED A T [facility] 6720 (BEAKER) (test code = [facility], 1538) 323[address]: Finisher [employer] And Plasterboard/Techni federico ID = [id number] for Ad ams, Paytonetra POCT-GLUCOSE [id number] 13:10:55 Test Item Value Reference Range Interpretation Comments POC-GLUCOSE METER 98 mg/dL 70-110 : TESTED A T [facility] 6720 (BEAKER) (test code = [facility], 1538) 04[address]: Finisher Wallboard And Plasterboard/Techni federico ID = [id number] for NIST OR, TIFFANY [id number] 02:07:47 Test Item Value Reference Range Interpretation Comments PHOSPHORUS (BEAKER) (test code = 3.7 mg/dL 2.3-4.7 604) Finisher [employer] ID - [id number] 02:07:46 Test Item Value Reference Range Interpretation Comments MAGNESIUM (BEAKER) (test code = 1.8 mg/dL 1.6-2.6 627) Finisher [employer] ID - MARCOBASIC METABOLIC [id number] 02:07:46 Test Item Value Reference Range Interpretation [...] not appl icable for dialysis patien ts Finisher [employer] ID - MARCOCBC (HEMOGRAM ONLY)2023-03-18 01:43:23 Test [...] 0-0 (BEAKER) (test code = 413) POCT-GLUCOSE [id number] 06:11:57 Test Item Value Reference Range Interpretation Comments POC-GLUCOSE METER 116 mg/dL 70-110 H : TESTED A T [facility] 6720 (BEAKER) (test code = [place], 1538) [address]: Finisher [employer] And Plasterboard/Techni federico ID = [id number] for IB ADAM VARGAS BASIC METABOLIC [id number] 04:24:08 Test Item Value Reference Range Interpretation [...] not appl icable for dialysis patien ts Finisher [employer] ID - [id number] 04:24:08 Test Item Value Reference Range Interpretation Comments MAGNESIUM (BEAKER) (test code = 3.9 mg/dL 1.6-2.6 H 627) Finisher [employer] ID - [id number] 04:24:08 Test Item Value Reference Range Interpretation Comments PHOSPHORUS (BEAKER) (test code = 3.1 mg/dL 2.3-4.7 604) Finisher [employer] ID - ADMINCBC (HEMOGRAM ONLY)2023-03-17 03:52:15 Test [...] 0-0 (BEAKER) (test code = 413) POCT-GLUCOSE [id number] 00:05:32 Test Item Value Reference Range Interpretation Comments POC-GLUCOSE METER 125 mg/dL 70-110 H : TESTED [facility] ([facility]) (test code = [facility], 153) 113[address]: Finisher Wallboard And Plasterboard/Techni federico ID = [id number] for IB ENNEDA, EUCIA POCT-GLUCOSE [id number] 18:44:19 Test Item Value Reference Range Interpretation Comments POC-GLUCOSE METER 125 mg/dL 70-110 H : Notified RN/MD: ([facility]) (test code = TESTED AT [place] [address] 1537) [facility], [address]: Finisher Wallboard And Plasterboard/Techni federico ID = [id number] for Senia Villatoro POCT-GLUCOSE [id number] 13:09:35 Test Item Value Reference Range Interpretation Comments POC-GLUCOSE METER 108 mg/dL 70-110 : TESTED A [facility] 67[address] (BEAKER) (test code = [place], 1538) [address]: Finisher [employer] And [employer]asterboard/Techni federico ID = [id number] for Sh Senia worthington [id number] 05:44:01 Test Item Value Reference Range Interpretation Comments PHOSPHORUS (BEAKER) (test code = 3.4 mg/dL 2.3-4.7 604) Finisher [employer] ID - MMBASIC METABOLIC [id number] 05:44:00 Test Item Value Reference Range Interpretation [...] not appl icable for dialysis patien ts Finisher [employer] ID - [id number] 05:44:00 Test Item Value Reference Range Interpretation Comments MAGNESIUM (BEAKER) (test code = 2.6 mg/dL 1.6-2.6 627) Finisher [employer] ID - MMCBC (HEMOGRAM ONLY)2023-03-16 05:40:09 Test [...] 0-0 (BEAKER) (test code = 413) POCT-GLUCOSE [id number] 00:06:45 Test Item Value Reference Range Interpretation Comments POC-GLUCOSE METER 127 mg/dL 70-110 H : TESTED A T [facility] 6720 (BEAKER) (test code [facility], = 153) [address]: Finisher [employer]asterboard/Techni federico ID = [id number] for Balwinder Smith POCT-GLUCOSE [id number] 17:44:55 Test Item Value Reference Range Interpretation Comments POC-GLUCOSE METER 119 mg/dL 70-110 H : TESTED A T [facility] 6720 (BEAKER) (test code = [facility], 153) [address]: Finisher [employer] And [employer]asterboard/Techni federico ID = [id number] for Senia Villatoro POCT-GLUCOSE [id number] 14:16:32 Test Item Value Reference Range Interpretation Comments POC-GLUCOSE METER 120 mg/dL 70-110 H : TESTED A T [facility] 6720 (BEAKER) (test code = [facility], 1538) [address]: Finisher [employer] And [employer]asterboard/Techni federico ID = [id number] for Senia worthington [id number] 05:50:48 Test Item Value Reference Range Interpretation Comments MAGNESIUM (BEAKER) (test code = 1.5 mg/dL 1.6-2.6 L 627) Finisher [employer] ID - SARAH [id number] 05:50:48 Test Item Value Reference Range Interpretation Comments PHOSPHORUS (BEAKER) (test code = 4.0 mg/dL 2.3-4.7 604) Finisher [employer] ID - SARAH WBASIC METABOLIC [id number] 05:50:47 Test Item Value Reference Range Interpretation [...] not appl icable for dialysis patien ts Finisher [employer] ID Cecilia SMITH WCBC (HEMOGRAM ONLY)2023-03-15 05:18:47 [...] code = 413) HGB/HCT (H&H) - STAT [id number] 16:32:34 Test Item Value Reference Range Interpretation Comments HEMOGLOBIN (BEAKER) (test code = 11.2 GM/DL 12.0-15.0 L 410) HEMATOCRIT (BEAKER) (test code = 33.0 % 36.0-45.0 L 411) BLOOD GAS, [id number] 16:32:34 Test Item Value Reference Range Interpretation [...] (BEAKER) (test code = 1819) 30.0 CALCIUM, [id number] 16:32:33 Test Item Value Reference Range Interpretation Comments CALCIUM IONIZED (BEAKER) (test 1.14 mmol/L 1.12-1.27 code = 698) PH, BLOOD (BEAKER) (test code = 7.42 1810) GLUCOSE-STAT [id number] 16:32:14 Test Item Value Reference Range Interpretation Comments GLUCOSE RANDOM (BEAKER) (test code 142 mg/dL 70-110 H = 652) BLOOD GAS, [id number] 13:13:17 Test Item Value Reference Range Interpretation [...] (BEAKER) (test code = 1819) 28.0 CALCIUM, [id number] 13:13:16 Test Item Value Reference Range Interpretation Comments CALCIUM IONIZED (BEAKER) (test 1.28 mmol/L 1.12-1.27 H code = 698) PH, BLOOD (BEAKER) (test code = 7.43 1810) POTASSIUM-STAT [id number] 13:12:06 Test Item Value Reference Range Interpretation Comments POTASSIUM (BEAKER) (test code = 4.3 meq/L 3.6-5.5 379) HGB/HCT (H&H) - STAT [id number] 13:12:06 Test Item Value Reference Range Interpretation Comments HEMOGLOBIN (BEAKER) (test code = 12.8 GM/DL 12.0-15.0 410) HEMATOCRIT (BEAKER) (test code = 38.0 % 36.0-45.0 411) GLUCOSE-STAT [id number] 13:12:05 Test Item Value Reference Range Interpretation Comments GLUCOSE RANDOM (BEAKER) (test code 119 mg/dL 70-110 H = 652) SODIUM NA-STAT [id number] 13:12:05 Test Item Value Reference Range Interpretation Comments SODIUM (BEAKER) (test code = 381) 135 meq/L 136-145 L TISSUE [id number] 12:28:43Surgical Pathology Report Case: [id number] Authorizing Provider: Susanna Wick MD Collected: 03/03/2023 04:51 PM Ordering Location: [facility] PERIOPERATIVE Received: 03/06/2023 10:23 AM SERVICES Pathologist: Nick Banks MD Specimen: Tongue, RIGHT ANTERIOR TONSILAR PILLAR A. RIGHT ANTERIOR TONSILLAR PILLAR, BIOPSY - LYMPHOID TISSUE, NEGATIVE FOR CARCINOMA. Signing Pathologist Direct Phone Line: [phone] signed by Nick Banks MD on 03/14/2023 at 12:28 PMImmunostains for AE1/AE3 and p40 are negative.81237, 28261, 92270Jkogzf cancerA. TongueReceived fresh labeled with the patient's name, medical record number and "tongue" is a 0.6 x 0.3 x 0.2 cm red soft tissue fragment submitted in toto in A1.ALIA Sorto, JAMES (ASCP)cmPerformed.The interpretation of this case included the use of immunohistochemistry or special stains.Control Slides Examined: In-house known positive controls were evaluated along with the test tissue. These control slides run alongside of the patients sample show appropriate staining. Internal positive and negative controls when available are evaluated Immunohistochemistry technical testing was performed at [facility], Pathology Laboratory where it was developed and [...] perform high complexity clinical laboratory testing.SODIUM NA-STAT [id number] 08:29:01 Test Item Value Reference Range Interpretation Comments SODIUM (BEAKER) (test code = 381) 134 meq/L 136-145 L CALCIUM, [id number] 08:29:00 Test Item Value Reference Range Interpretation Comments CALCIUM IONIZED (BEAKER) (test 1.10 mmol/L 1.12-1.27 L code = 698) PH, BLOOD (BEAKER) (test code = 7.45 1810) BLOOD GAS, [id number] 08:29:00 Test Item Value Reference Range Interpretation [...] (BEAKER) (test code = 1819) 54.0 POTASSIUM-STAT [id number] 08:27:11 Test Item Value Reference Range Interpretation Comments POTASSIUM (BEAKER) (test code = 4.4 meq/L 3.6-5.5 379) HGB/HCT (H&H) - STAT [id number] 08:27:11 Test Item Value Reference Range Interpretation Comments HEMOGLOBIN (BEAKER) (test code = 12.3 GM/DL 12.0-15.0 410) HEMATOCRIT (BEAKER) (test code = 36.0 % 36.0-45.0 411) GLUCOSE-STAT [id number] 08:27:10 Test Item Value Reference Range Interpretation Comments GLUCOSE RANDOM (BEAKER) (test code = 92 mg/dL 70-110 652) SARS-COV2/RT-PCR ([facility])2023-03-14 07:10:29 Test Item Value Reference Range Interpretation Comments SARS-COV2/RT-PCR Negative Negative The SARS-Co V-2 target (test code = nucleic acids a re not 3681258) detected in thi s specimen. Negative result [...] revoked sooner. Fact Sheet for Healthcare Providers: https://www.[employer]/Documents/Xpert%20Xpress%20SARS%20CoV-2/Fact%20Sheets/3023802%75KQVB-QSO-8%20 HEALTHCARE%20PROVIDERS%20FACT%20SHEET.pdf Fact Sheet for Healthcare Patients: https://www.[employer]/Documents/Xpert%20Xp ress%20SARS%20CoV-2/Fact%20Sheets/3023801%38LIOG-WFB-2%20PATIENT%20FACT%20SHEET .[id number] 03:44:35 Test Item Value Reference Range Interpretation Comments MAGNESIUM (BEAKER) (test code = 1.9 mg/dL 1.6-2.6 627) [employer] ID - SARAH [id number] 03:44:35 Test Item Value Reference Range Interpretation Comments PHOSPHORUS (BEAKER) (test code = 5.0 mg/dL 2.3-4.7 H 604) [employer] LARON SMITH WBASIC METABOLIC [id number] 03:44:34 Test Item Value Reference Range Interpretation [...] not appl icable for dialysis patien ts [employer] LARON SMITH WPT/[id number] 03:35:20 Test Item Value Reference Range Interpretation [...] for patients with mechanical heart valves. SCREEN, [id number] 19:22:08 Test Item Value Reference Range Interpretation Comments TEST URINE (BEAKER) (test Negative Negative code = 583) POC-Glucose [id number] 11:56:01 Test Item Value Reference Range Interpretation Comments POC-Glucose Meter (test 95 mg/dL 70-110 : TE STED AT [facility] code = 1538) [address] [facility], 770 30: [employer]/Techni federico ID = [id number] for Dewey Arora tone Lab Interpretation (test Normal code = 92958-5) [facility] [id number] 11:56:01 Test Item Value Reference Range Interpretation Comments POC-GLUCOSE METER 95 mg/dL 70-110 : [facility] (BEAKER[facility] (test code = [facility], 1538) [address]: [employer]/Techni federico ID = [id number] for Marsha Petty POCT-GLUCOSE [id number] 06:17:24 Test Item Value Reference Range Interpretation Comments POC-GLUCOSE METER 160 mg/dL 70-110 H : [facility] (BEAKER) (test code = [facility], 1538) 6[address]: [employer]/Techni federico ID = [id number] for HANG ALMAZAN [id number] 04:44:38 Test Item Value Reference Range Interpretation Comments MAGNESIUM (BEAKER) (test code = 1.9 mg/dL 1.6-2.6 627) [employer] ID - [id number] 04:44:38 Test Item Value Reference Range Interpretation Comments PHOSPHORUS (BEAKER) (test code = 5.3 mg/dL 2.3-4.7 H 604) [employer] ID - EOOBASIC METABOLIC [id number] 04:44:37 Test Item Value Reference Range Interpretation [...] not appl icable for dialysis patien ts [employer] ID - EOOPOCT-GLUCOSE [id number] 00:21:01 Test Item Value Reference Range Interpretation Comments POC-GLUCOSE METER 108 mg/dL 70-110 : TESTED A T [facility] 6720 (Dialogfeed) (test code = [facility] [place] [facility], 1538) [address]: Fin[employer]/Techni federico ID = [id number] for HANG ALMAZAN POCT-GLUCOSE [id number] 16:05:36 Test Item Value Reference Range Interpretation Comments POC-GLUCOSE METER 120 mg/dL 70-110 H : TESTED A T [facility] 6720 (Dialogfeed) (test code = [facility] [place] [facility], 1538) 118[address]: [employer]/Techni federico ID = [id number] for Terrence mcginnis Sonali POCT-GLUCOSE [id number] 12:33:49 Test Item Value Reference Range Interpretation Comments POC-GLUCOSE METER 87 mg/dL 70-110 : TESTED A T [facility] 6720 (Dialogfeed) (test code = [facility], 1538) 52789: [employer]/Techni federico ID = [id number] for Roe n, Sonali POCT-GLUCOSE [id number] 06:25:50 Test Item Value Reference Range Interpretation Comments POC-GLUCOSE METER 108 mg/dL 70-110 : TESTED A T [facility] 6720 (BEAKER) (test code = [facility], 1538) [address]: [employer]/Techni federico ID = [id number] for HANG ALMAZAN [id number] 04:51:06 Test Item Value Reference Range Interpretation Comments MAGNESIUM (BEAKER) (test code = 1.6 mg/dL 1.6-2.6 627) [employer] ID - MAXWELL [id number] 04:51:06 Test Item Value Reference Range Interpretation Comments PHOSPHORUS (BEAKER) (test code = 4.4 mg/dL 2.3-4.7 604) [employer] ID - MAXWELL BBASIC METABOLIC [id number] 04:51:05 Test Item Value Reference Range Interpretation [...] not appl icable for dialysis patien ts [employer] ID - MAXWELL BPOCT-GLUCOSE [id number] 00:05:50 Test Item Value Reference Range Interpretation Comments POC-GLUCOSE METER 118 mg/dL 70-110 H : TESTED A T [facility] 6720 (BEAKER) (test code = [facility], 1538) 736[address]: [employer]/Techni federico ID = [id number] for HANG ALMAZAN POCT-GLUCOSE [id number] 16:40:48 Test Item Value Reference Range Interpretation Comments POC-GLUCOSE METER 99 mg/dL 70-110 : TESTED A T [facility] 6720 (BEAKER) (test code = [facility], 1538) 276[address]: [employer]/Techni federico ID = [id number] for Rosaline Deleon POCT-GLUCOSE [id number] 12:40:11 Test Item Value Reference Range Interpretation Comments POC-GLUCOSE METER 122 mg/dL 70-110 H : TESTED A T [facility] 6720 (BEAKER) (test code = [facility], 1538) 26014: [employer]/Techni federico ID = [id number] for Sonali Walters POCT-GLUCOSE [id number] 06:26:58 Test Item Value Reference Range Interpretation Comments POC-GLUCOSE METER 93 mg/dL 70-110 : TESTED A T [facility] 6720 (BEAKER) (test code = [facility], 1538) 54678: [employer]/Techni federico ID = [id number] for HANG ZUNIGA [id number] 04:39:11 Test Item Value Reference Range Interpretation Comments MAGNESIUM (BEAKER) (test code = 1.7 mg/dL 1.6-2.6 627) [employer] ID - [id number] 04:39:11 Test Item Value Reference Range Interpretation Comments PHOSPHORUS (BEAKER) (test code = 4.6 mg/dL 2.3-4.7 604) [employer] ID - MARCOBASIC METABOLIC [id number] 04:39:10 Test Item Value Reference Range Interpretation [...] not appl icable for dialysis patien ts [employer] ID - MARCOBASIC METABOLIC [id number] 06:51:27 Test Item Value Reference Range Interpretation [...] not appl icable for dialysis patien ts [employer] ID - [id number] 06:51:27 Test Item Value Reference Range Interpretation Comments MAGNESIUM (BEAKER) (test code = 1.6 mg/dL 1.6-2.6 627) [employer] ID - [id number] 06:51:27 Test Item Value Reference Range Interpretation Comments PHOSPHORUS (BEAKER) (test code = 5.1 mg/dL 2.3-4.7 H 604) [employer] ID - MARCOPOC-Glucose [id number] 06:10:39 Test Item Value Reference Range Interpretation Comments POC-Glucose Meter (test 117 mg/dL 70-110 H : TE STED AT [facility] code = 1538) [address] [facility], 770 30: [employer]/Techni federico ID = [id number] for DARCI MONTEMAYOR Lab Interpretation (test Abnormal code = 71762-4) [facility] [id number] 06:10:39 Test Item Value Reference Range Interpretation Comments POC-GLUCOSE METER 117 mg/dL 70-110 H : TESTED A T [facility] 6720 (BEAKER) (test code = [facility], 1538) 858[address]: [employer]/Techni federico ID = [id number] for TH OMPSON, BELKIS POCT-GLUCOSE [id number] 00:21:24 Test Item Value Reference Range Interpretation Comments POC-GLUCOSE METER 133 mg/dL 70-110 H : TESTED A T [facility] 6720 (BEAKER) (test code = [facility], 1538) 82268: [employer]/Techni federico ID = [id number] for TH OMPSON, BELKIS POCT-GLUCOSE [id number] 18:01:01 Test Item Value Reference Range Interpretation Comments POC-GLUCOSE METER 131 mg/dL 70-110 H : TESTED A T [facility] 6720 (BEAKER) (test code = [facility], 1538) 85095: [employer]/Techni federico ID = [id number] for Sa Jass castanon POC-Glucose [id number] 11:46:52 Test Item Value Reference Range Interpretation Comments POC-Glucose Meter (test 86 mg/dL 70-110 : TE STED AT [facility] code = 1538) [address] [facility], 770 30: [employer]/Techni federico ID = [id number] for KalinMicha Lab Interpretation (test Normal code = 05227-1) [facility] [id number] 11:46:52 Test Item Value Reference Range Interpretation Comments POC-GLUCOSE METER 86 mg/dL 70-110 : TESTED A T [facility] 6720 (BEAKER) (test code = [facility], 1538) 56374: [employer]/Techni federico ID = [id number] for Sanc Jass mcknight POCT-GLUCOSE [id number] 06:32:46 Test Item Value Reference Range Interpretation Comments POC-GLUCOSE METER 110 mg/dL 70-110 : [facility] (BEAKER[facility] (test code = [facility], 153) [address]: [employer]/Techni federico ID = [id number] for HANG ALMAZAN BASIC METABOLIC [id number] 05:38:35 Test Item Value Reference Range Interpretation [...] not appl icable for dialysis patien ts [employer] ID - [id number] 05:38:35 Test Item Value Reference Range Interpretation Comments MAGNESIUM (BEAKER) (test code = 1.8 mg/dL 1.6-2.6 627) [employer] ID - [id number] 05:38:35 Test Item Value Reference Range Interpretation Comments PHOSPHORUS (BEAKER) (test code = 3.4 mg/dL 2.3-4.7 604) [employer] ID - DBCBC W/PLT COUNT & AUTO [id number] 05:14:51 Test Item Value Reference Range Interpretation [...] PERCENT (BEAKER) (test code = 2801) POCT-GLUCOSE [id number] 23:49:04 Test Item Value Reference Range Interpretation Comments POC-GLUCOSE METER 97 mg/dL 70-110 : TESTED A T [facility] 6720 ([facility]) (test code = [facility], 153) 39460: Finisher [employer]/Techni federico ID = [id number] for MIGUEL MORRISONFADUMOE POCT-GLUCOSE [id number] 18:03:27 Test Item Value Reference Range Interpretation Comments POC-GLUCOSE METER 96 mg/dL 70-110 : TESTED A T [facility] 6720 ([facility]) (test code = [facility], 153) 02683: Fin[employer]/Techni federico ID = [id number] for BELKIS SAMPSON POCT-GLUCOSE [id number] 12:11:29 Test Item Value Reference Range Interpretation Comments POC-GLUCOSE METER 95 mg/dL 70-110 : TESTED A T [facility] 6720 (BEAKER) (test code = [facility] [place], 1538) 728[address]: Fin[employer]/Techni federico ID = [id number] for BELKIS SAMPSON POCT , [id number] 07:31:00 Test Item Value Reference Range Interpretation Comments Test Urine, POC (test Negative code = 9536228) Control line present?, POC (test Yes code = 0674108) Background clear?, POC (test code Yes = 2983486) UPT Cassette Lot #, POC (test code 974184 = [id number]) UPT Cassette Expiration Date, POC 03/19/2024 (test code = 7203371) [facility] , [id number] 07:31:00 Test Item Value Reference Range Interpretation Comments Test Urine, POC (test Negative code = 5353433) Control line present?, POC (test Yes code = 5850980) Background clear?, POC (test code Yes = 0598190) UPT Cassette Lot #, POC (test code 394420 = 1707385) UPT Cassette Expiration Date, POC 03/19/2024 (test code = 9293833) [facility] , [id number] 07:31:00 Test Item Value Reference Range Interpretation Comments Test Urine, POC (test Negative code = 6451795) Control line present?, POC (test Yes code = 1792555) Background clear?, POC (test code Yes = 8866964) UPT Cassette Lot #, POC (test code 746849 = 3527735) UPT Cassette Expiration Date, POC 03/19/2024 (test code = 9613878) [facility] , [id number] 07:31:00 Test Item Value Reference Range Interpretation Comments Test Urine, POC (test Negative code = 0997711) Control line present?, POC (test Yes code = 1611223) Background clear?, POC (test code Yes = 5016525) UPT Cassette Lot #, POC (test code 986638 = 6264233) UPT Cassette Expiration Date, POC 03/19/2024 (test code = 9333491) [facility]-Glucose [id number] 06:42:59 Test Item Value Reference Range Interpretation Comments POC-Glucose Meter (test 95 mg/dL 70-110 : TE STED AT [facility] code = 1538) [address] [place], [address]: [employer]/Techni federico ID = [id number] for Shayy Olivarez Lab Interpretation (test Normal code = 92540-8) [facility] [id number] 06:42:59 Test Item Value Reference Range Interpretation Comments POC-GLUCOSE METER 95 mg/dL 70-110 : TESTED A T [facility] 6720 (BEAKER) (test code = [facility], 1538) [address]: [employer]/Techni federico ID = [id number] for Shayy Costello od [id number] 04:49:08 Test Item Value Reference Range Interpretation Comments PHOSPHORUS (BEAKER) (test code = 4.0 mg/dL 2.3-4.7 604) [employer] ID - ADMINBASIC METABOLIC [id number] 04:49:07 Test Item Value Reference Range Interpretation [...] not appl icable for dialysis patien ts [employer] ID - [id number] 04:49:07 Test Item Value Reference Range Interpretation Comments MAGNESIUM (BEAKER) (test code = 1.9 mg/dL 1.6-2.6 627) [employer] ID - ADMINCBC W/PLT COUNT & AUTO [id number] 04:23:38 Test Item Value Reference Range Interpretation [...] PERCENT (BEAKER) (test code = 2801) POCT-GLUCOSE [id number] 23:51:35 Test Item Value Reference Range Interpretation Comments POC-GLUCOSE METER 115 mg/dL 70-110 H : TESTED A T [facility] 6720 (BEAKER) (test code = [facility], [facility]) [address]: Finisher [employer]/Techni federico ID = [id number] for Shayy Bahena POCT-GLUCOSE [id number] 18:02:27 Test Item Value Reference Range Interpretation Comments POC-GLUCOSE METER 97 mg/dL 70-110 : TESTED A T [facility] 6720 (BEAKER) (test code = [facility], [facility]8) 743[address]: [employer]/Techni federico ID = [id number] for JENNI PSON, BELKIS POCT-GLUCOSE [id number] 12:21:50 Test Item Value Reference Range Interpretation Comments POC-GLUCOSE METER 82 mg/dL 70-110 : TESTED A T [facility] 6720 (BEAKER) (test code = [facility], 1538) 39048: [employer]/Techni federico ID = [id number] for JENNI PSON, BELKIS POCT-GLUCOSE [id number] 06:39:31 Test Item Value Reference Range Interpretation Comments POC-GLUCOSE METER 82 mg/dL 70-110 : TESTED A T [facility] 6720 (BEAKER) (test code = [facility], [facility]8) [address]86: [employer]isher [employer]/Techni federico ID = [id number] for Shayy Costello od [id number] 05:41:53 Test Item Value Reference Range Interpretation Comments MAGNESIUM (BEAKER) (test code = 1.9 mg/dL 1.6-2.6 627) [employer] ID - [id number] 05:41:53 Test Item Value Reference Range Interpretation Comments PHOSPHORUS (BEAKER) (test code = 4.3 mg/dL 2.3-4.7 604) [employer] ID - ADMINBASIC METABOLIC [id number] 05:41:52 Test Item Value Reference Range Interpretation [...] not appl icable for dialysis patien ts [employer] ID - ADMINCBC W/PLT COUNT & AUTO [id number] 05:18:36 Test Item Value Reference Range Interpretation [...] PERCENT (BEAKER) (test code = 2801) POCT-GLUCOSE [id number] 00:09:35 Test Item Value Reference Range Interpretation Comments POC-GLUCOSE METER 160 mg/dL 70-110 H : TESTED Facundo Dejesus [facility] 6720 (BEAKER) (test code = [place], 1538) [address]: Finisher [employer]/Techni federico ID = [id number] for Shayy Bahena POCT-GLUCOSE [id number] 17:21:07 Test Item Value Reference Range Interpretation Comments POC-GLUCOSE METER 75 mg/dL 70-110 : TESTED A T [facility] 6720 (BEAKER) (test code = STAS[facility] William [facility], 1538) [address]: [employer]/Techni federico ID = [id number] for Sonali Harrison Screen, [id number] 15:22:58 Test Item Value Reference Range Interpretation Comments Preg Test, Ur (test code = 2112-1) Negative Negative Lab Interpretation (test code = Normal 37270-0) [facility], [id number] 15:22:58 Test Item Value Reference Range Interpretation Comments Preg Test, Ur (test code = 2112-1) Negative Negative Lab Interpretation (test code = Normal 07919-4) [facility], [id number] 15:22:58 Test Item Value Reference Range Interpretation Comments Preg Test, Ur (test code = 2112-1) Negative Negative Lab Interpretation (test code = Normal 71492-0) [facility], [id number] 15:22:58 Test Item Value Reference Range Interpretation Comments Preg Test, Ur (test code = 2112-1) Negative Negative Lab Interpretation (test code = Normal 06743-9) [facility] HospitalPREGNANCY SCREEN, [id number] 15:22:58 Test Item Value Reference Range Interpretation Comments TEST URINE (BEAKER) (test Negative Negative code = 583) POCT-GLUCOSE [id number] 17:25:51 Test Item Value Reference Range Interpretation Comments POC-GLUCOSE METER 87 mg/dL 70-110 : TESTED A T [facility] 6720 (BEAKER) (test code = [facility], 1538) 14984: [employer]/Techni federico ID = [id number] for MARK CEBALLOS POCT-GLUCOSE [id number] 12:49:55 Test Item Value Reference Range Interpretation Comments POC-GLUCOSE METER 93 mg/dL 70-110 : TESTED A T [facility] 6720 (BEAKER) (test code = [facility], 1538) 68[address]: [employer]/Techni federico ID = [id number] for MARK CEBALLOS COMPREHENSIVE METABOLIC [id number] 05:47:37 Test Item Value Reference Range Interpretation [...] not appl icable for dialysis patien ts [employer] ID - [id number] 05:41:52 Test Item Value Reference Range Interpretation Comments PREALBUMIN (BEAKER) (test code = 26 mg/dL 14-45 586) [employer] ID - [id number] 05:34:03 Test Item Value Reference Range Interpretation Comments PARTIAL THROMBOPLASTIN TIME 35.5 seconds 22.5-36.0 (BEAKER) (test code = 760) PROTHROMBIN TIME/[id number] 05:33:23 Test Item Value Reference Range Interpretation Comments PROTIME (BEAKER) (test code = 13.1 seconds 11.9-14.2 759) INR (BEAKER) (test code = 370) 1.05 <=5.90 RECOMMENDED COUMADIN/WARFARIN INR THERAPY RANGESSTANDARD DOSE: 2.0 - 3.0 Includes: PROPHYLAXIS for venous thrombosis, systemic embolization; TREATMENT for venous thrombosis and/or pulmonary embolus.HIGH RISK: Target INR is 2.5-3.5 for patients with mechanical heart valves.CBC W/PLT COUNT & AUTO [id number] 05:25:30 Test Item Value Reference Range Interpretation [...] code = 2801) HIV-1 ANTIGEN WITH HIV-1/2 [id number] 13:53:09 Test Item Value Reference Range Interpretation Comments HIV-1 ANTIGEN WITH HIV 1\\T\\2 Nonreactive Nonreactive ANTIBODY (2) (BEAKER) (test code = 2586) [employer] ID - ADMINHEPATITIS C [id number] 13:53:08 Test Item Value Reference Range Interpretation Comments HEPATITIS C ANTIBODY (BEAKER) Nonreactive Nonreactive (test code = 367) [employer] ID - [id number] 13:38:31 Test Item Value Reference Range Interpretation Comments PREALBUMIN (BEAKER) (test code = 30 mg/dL 1445 586) [employer] ID - ADMINXR ABDOMEN/KUB 1 VIEW [id number] 19:34:44 [facility] 1980 Sex: FTECHNIQUE: XR ABDOMEN/KUB 1 VIEW PORTABLEINDICATION: DHT PLacement.COMPARISON: None.FINDINGS:Feeding tube tip projected over the gastric antrum. Nonobstructive bowelgas pattern. Lower pelvis is incompletely included on this examination.Supine radiographs are insensitive for detection of free intraperito nealair.IMPRESSION:Feeding tube tip projected over the gastric antrum.Electronically Signed By: Jarvis Welsh03/03/2023 19:36 CDTWorkstation Name: [id number] CHEST WITH IV [id number] 17:28:20 [facility] : 1980 Sex: [...] Signed By: Jude Calero02/25/2023 17:30 CDTWorkstation Name: [id number] NECK SOFT TISSUE WITH IV [id number] 14:07:41 [facility] : 1980 Sex: [...] Signed By: Natacha Mondragon02/23/2023 14:09 CDTWorkstation Name: [id number], CHEST, WITH [id number] 07:29:00 Unlisted Reason for Exam - Click Yes and Enter Reason Below->No [facility] : 1980 Sex: [...] identified in the chest. Signed: Abdirashid Nicholas Verified Da te/Time: 01/20/2023 07:29:13 [id number] 05:13:48 Test Item Value Reference Range Interpretation Comments MAGNESIUM (BEAKER) (test code = 1.7 mg/dL 1.6-2.6 627) [employer] ID - [id number] 05:13:48 Test Item Value Reference Range Interpretation Comments PHOSPHORUS (BEAKER) (test code = 4.1 mg/dL 2.3-4.7 604) [employer] ID - MMBASIC METABOLIC [id number] 05:13:47 Test Item Value Reference Range Interpretation [...] not appl icable for dialysis patien ts [employer] ID - MMBASIC METABOLIC [id number] 06:42:56 Test Item Value Reference Range Interpretation [...] not appl icable for dialysis patien ts [employer] ID - [id number] 06:42:56 Test Item Value Reference Range Interpretation Comments MAGNESIUM (BEAKER) (test code = 1.8 mg/dL 1.6-2.6 627) [employer] ID - [id number] 06:42:56 Test Item Value Reference Range Interpretation Comments PHOSPHORUS (BEAKER) (test code = 4.0 mg/dL 2.3-4.7 604) [employer] ID - ADMINVITAMIN [id number] 06:39:31 Test Item Value Reference Range Interpretation Comments VITAMIN B12 (BEAKER) (test code = 341 pg/mL 213-816 774) [employer] ID - ADMINIRON, TIBC, % SAT. (WITHOUT FERRITIN)2023-01-19 06:11:34 Test Item Value Reference Range Interpretation Comments IRON (BEAKER) (test code = 547) 22.0 ug/dL 40.0-160.0 L TOTAL IRON BINDING CAPACITY 394 ug/dL 250-450 (BEAKER) (test code = 769) IRON % SATURATION (2) (BEAKER) 6 % 20-55 L (test code = 2590) [employer] ID - [id number] 06:40:41 Test Item Value Reference Range Interpretation Comments MAGNESIUM (BEAKER) 1.5 mg/dL 1.6-2.6 L Specimen slightly (test code = 627) hemolyzed [employer] ID - SARAH [id number] 06:40:41 Test Item Value Reference Range Interpretation Comments PHOSPHORUS (BEAKER) 3.6 mg/dL 2.3-4.7 Specimen slightly (test code = 604) hemolyzed [employer] ID - SARAH WCOMPREHENSIVE METABOLIC [id number] 06:40:41 Test Item Value Reference Range Interpretation [...] not appl icable for dialysis patien ts [employer] ID - SARAH WCBC W/PLT COUNT & AUTO [id number] 05:43:39 Test Item Value Reference Range Interpretation [...] PERCENT (BEAKER) (test code = 2801) Ethanol [id number] 02:25:00 Test Item Value Reference Range Interpretation [...] 1. 8-10.1 mIU/mL Complete Blood Count Auto [id number] 22:56:00 Test Item Value Reference Range Interpretation [...] code = NRBCP) 0 % Comprehensive Metabolic [id number] 22:56:00 Test Item Value Reference Range Interpretation [...] 106 U/L 46-116 N = ALP) Ethanol [id number] 22:56:00 Test Item Value Reference Range Interpretation Comments Ethanol (test code 242 mg/dL The pharm acological = ETOH) response to blo od alcohol levels mayvary from individual to i ndividual. The fatal ginna ntrationhas been reported t o be >400mg/dL. Manual Differential, [id number] 22:56:00 Test Item Value Reference Range Interpretation [...] 1+ None Seen A Coronavirus PCR, COVID19 [id number] 22:52:00 Test Item Value Reference Range Interpretation Comments Coronavirus PCR, For use under Emergency COVID19 Rapid (test Use Authorization (EUA) code = SARSCOV2) only. Coronavirus PCR, Reference Range: COVID19 Rapid (test Negative code = VRLDTZF06.1) SARS-CoV-2 PCR Result: Negative by RT-PCR (test code = SARS-CoV-2 PCR Result:) COVID-19 Status: AsymptomaticUA, Urinalysis Rflx Cult/[id number] 22:52:00 Test Item Value Reference Range Interpretation Comments Color,Urine (test code = UCOL) Yellow Yellow Clarity,Urine (test code = Clear Clear UCLAR) Ph, Urine (test code = UPH) 6.0 5.0-9.0 N Specific [place],Urine (test 1.020 1.005-1.030 N code = USG) [...] A code = ULEU) UF REFLEXUF REFLEXUrine [id number] 22:52:00 Test Item Value Reference Range Interpretation Comments RBC,Urine (test code = URBCUF) 0-2 /HPF 0-2 WBC,Urine (test code = UWBCUF) 0-5 /HPF 0-5 Epithelial Cell,Urine (test 0-5 /HPF 0-5 code = UECUF) Casts,Urine (test code = 0-5 /LPF None Seen UCASTUF) Bacteria,Urine (test code = None Seen /hpf None Seen UBACTUF) UF REFLEXUF REFLEXDrug Screen,[id number] 22:52:00 Test Item Value Reference Range Interpretation [...]
[2023-04-12] MEDS ORDERED: ONDANSETRON 4 MG/2 ML VIAL ONE (05:50)
[2023-04-12] MEDS ORDERED: NA CHLORIDE 0.9% 1,000 ML ONE (05:50)
[2023-04-12] MEDS ORDERED: KETOROLAC 30 MG/ML INJ ONE (05:50)
--- NOTE | 2023-04-12 08:19 | RAD REPORT ---
EXAM DESCRIPTION: CT - Soft Tissue Neck W/Contr CLINICAL HISTORY: neck swelling post operatively COMPARISON: Soft Tissue Neck W/Contr dated 04/03/2023; Soft Tissue Neck W/Contr dated 03/29/2023; Soft Tissue Neck W/Contr dated 01/17/2023 TECHNIQUE: Thin axial CT images of the neck, performed following intravenous administration of 95 m L Isovue-300. Multiplanar reformats were generated and reviewed. All CT scans are performed using dose optimization technique as appropriate and may include automated exposure control or mA/KV adjustment according to patient size. FINDINGS: Postsurgical changes of glossectomy and myocutaneous flap reconstruction as well as neck d issection are again noted, without significant change since the prior exam. A marginally enhancing hy poattenuating lesion, suggestive of a small fluid collection left of midline, just cranial to the bod y of the hyoid bone is perhaps slightly smaller since the prior exam, now measuring 2 centimeter in g reatest dimension. Residual left faucial tonsillar tissue is slightly more prominent than on prior ex am, favored to be reactive. Asymmetric subcutaneous swelling and fat stranding along the soft tissues overlying the left mandibular angle and body is stable. Obliteration of the oropharyngeal and supra laryngeal airway, could relate to ongoing postoperative c hanges. No evidence of new enhancing mucosal masses. True vocal folds are unremarkable. No progressive adenopathy. Small lower cervical residual lymph nodes the largest in the supraclavicul ar region measuring 8 millimeter in short axis are stable. Tracheostomy tube in place. Scattered subtle centrilobular ground-glass opacities throughout the upper lungs, may be slightly pro gressive since the prior exam, favoring infectious/inflammatory process. No new suspicious osseous lesions. Stable appearance of extraction cavities along the right maxillary alveolus, as well as areas of sclerosis surrounding the left more than right mandibular molar roots. IMPRESSION: Stable postsurgical changes. Marginally enhancing small hypoattenuating presumed collect ion left of midline just cranial to the body of the hyoid is slightly smaller since the prior exam, f avored to be postoperative in nature. Stable asymmetric soft tissue swelling along the left mandibular angle and body, may represent ongoin g cellulitis. No suspicious adenopathy.
--- NOTE | 2023-04-12 08:33 | EDPHYS ---
Physician Documentation [facility] Name: Brii Garcia Age: 43 yrs Sex: Female : 1980 Arrival Date: 04/12/2023 Time: 05:14 Bed 7 Private MD: ED Physician Lakhwinder Darden HPI: 04/12 05:37 This 43 yrs old Black Female presents to ER via EMS with complaints of TRACH PROBLEM. sp4 07:24 42-year-old female with history of head and neck cancer presents with a cute onset of sp4 bilateral upper neck and throat pain associated with respiratory congestion and dyspnea secondary to tracheostomy occlusion with a sputum. Patient reports history of head and neck surgery at [facility] 4 weeks ago History of Squamous cell carcinoma of tongue; with resection at [facility] 4 weeks ago. Specifically patient has had partial glossectomy with free flap reconstruction.. Patient complains of persistent swelling on the left side of the neck associated with neck pain and tracheostomy occlusion. Historical: - Allergies: 05:32 No Known Allergies; lg3 - Home Meds: 05:32 unknown pain medication [Active]; unknown anxiety medication [Active]; lg3 - PMHx: 05:32 Squamous cell carcinoma of tongue; Anxiety; lg3 - PSHx: 05:32 Carcinoma removed; G tube placement; tracheostomy; total tongue removal; right leg; lg3 - Immunization history:: Adult Immunizations up to date, Client reports receiving the 2nd dose of the Covid vaccine. - Social history:: Smoking status: Patient/guardian denies using tobacco, Patient uses alcohol, occasionally. - Family history:: not pertinent. ROS: 07:24 Constitutional: Negative for fever, chills, and weight loss, ENT: Positive for sp4 tracheostomy, difficulty breathing through tracheostomy, loss of tracheostomy internal cannula, positive for left-sided neck pain and fullness. Neck: Positive for tracheostomy, tracheostomy associated problems, tracheostomy occlusion with a sputum, loss of tracheostomy internal cannula. 07:24 All other systems are negative. Exam: 07:24 Constitutional: This is a well developed, well nourished patient who is awake, alert, sp4 and in no acute distress. Head/Face: Normocephalic, and there is a left-sided facial swelling associated with recent postoperative change Eyes: Pupils equal round and reactive to light, extra-ocular motions intact. Lids and lashes normal. Conjunctiva and sclera are not injected. Cornea within normal limits. Periorbital areas with no swelling, redness, or edema. ENT: Nares patent. No nasal discharge, no septal abnormalities noted. Tympanic membranes are normal and external auditory canals are clear. Changes of partial glossectomy, tracheostomy in place, Neck: Trachea midline, tracheostomy present Chest/axilla: Normal chest wall appearance and motion. Nontender with no deformity. No lesions are appreciated. Cardiovascular: Regular rate and rhythm with a normal S1 and S2. No gallops, murmurs, or rubs. Normal PMI, no JVD. No pulse deficits. Respiratory: Lungs have equal breath sounds bilaterally, clear to auscultation and percussion. No rales, rhonchi or wheezes noted. No increased work of breathing, no retractions or nasal flaring. Abdomen/GI: Soft, non-tender, with normal bowel sounds. No distension or tympany. No guarding or rebound. No evidence of tenderness throughout. Back: No spinal tenderness. No costovertebral tenderness. Skin: Warm, dry with normal turgor. Normal color with no rashes, no lesions, and no evidence of cellulitis. MS/ Extremity: Pulses equal, no cyanosis. Neurovascular intact. Full, normal range of motion. Neuro: Awake and alert, GCS 15, oriented to person, place, time, and situation. Cranial nerves II-XII grossly intact. Motor strength 5/5 in all extremities. Sensory grossly intact. Psych: Awake, alert, with orientation to person, place and time. Behavior, mood, and affect are within normal limits Vital Signs: 05:27 BP 94 / 68; Pulse 94; Resp 16 S; Temp 97.4(A); Pulse Ox 100% on R/A; Weight 53.98 kg lg3 (R); Height 5 ft. 1 in. (R); Pain 10/10; 06:30 BP 92 / 66; Pulse 85; Resp 18; Pulse Ox 100% ; ko1 07:30 BP 89 / 67; Pulse 82; Resp 18; Pulse Ox 100% ; ko1 08:00 BP 88 / 66; Pulse 82; Resp 18; Pulse Ox 100% ; ko1 08:58 BP 94 / 68; Pulse 85; Resp 16; Pulse Ox 100% ; ko1 05:27 Body Mass Index 22.48 (53.98 kg, 154.94 cm) lg3 05:27 Pain Scale: Adult lg3 Procedures: 07:24 Performed Exchange of tracheostomy. Old size 8 tracheostomy was exchanged for a new sp4 size 8 uncuffed tracheostomy without difficulty. Patient tolerated procedure well. MDM: 05:22 Patient medically screened. sp4 05:37 ED course: CT report from 04/03/2023 - EXAM DESCRIPTION: CT - Soft Tissue Neck W/Contr sp4 CLINICAL HISTORY: pain, swelling COMPARISON: Soft Tissue Neck W/Contr dated 03/29/2023; Soft Tissue Neck W/Contr dated 01/17/[address] scans are performed using dose optimization technique as appropriate and may include automated exposure control or mA/KV adjustment according to patient size. FINDINGS: Postoperative changes from glossectomy with free flap reconstruction. Peripherally enhancing fluid collection identified on the prior CT at the surgical bed which is just left of midline measuring 2.5 cm is unchanged. This is favored postoperative rather than residual tumor. Changes of bilateral lymph node dissection. There is a airway narrowing posteriorly with some pooling of secretions but this is not unexpected. A tracheostomy is present . Skin thickening and subcutaneous edema which may be both postoperative and from postradiation changes. IMPRESSION: Postoperative/posttreatment findings similar to 03/29/2023 without evidence of an acute process or unexpected changes. Dictated By: Yfn Syed MD 04/03/23 201. 07:22 Data reviewed: vital signs, nurses notes, lab test result(s), radiologic studies. ED sp3 course: Patient taken over by me from the night physician. CT scan of the neck soft tissue is pending tracheostomy is being replaced overnight. Patient is stable at this time resting comfortably. Likely discharge home if CT is negative.. 07:24 Consideration of Admission/Observation Escalation of care including sp4 admission/observation considered. Transition of care: After a detail discussion of the patient's case, care is transferred to Lakhwinder Darden MD. 08:31 ED course: CT demonstrates no significant changes from prior. Patient vital signs are sp3 stable and her new tracheostomy is working without difficulty. We will safely discharge patient home at this time.. 04/12 05:34 Order name: CT Soft Tissue Neck W/contr; Complete Time: 08:30 sp4 04/12 06:04 Order name: Misc. Order: RECOLLET LAB; Complete Time: 08:39 rv1 Administered Medications: 05:33 Not Given (Patient Refused): Zofran IM 4 mg IM once sp4 05:35 Not Given (Other Intervention Used): Tylenol-Codeine #3 PO (120 mg - 12 mg) 15 ml PO jb4 once; RASS on ADMIN: Combtv4, Very Agttd3, Agttd2, Rstlss1, AlertClm0, Drwsy-1, Lt Sdtn-2, Mod Sdtn-3, Dp Sdtn-4, UnArsble-5 05:53 Drug: NS 0.9% IV 1000 ml Route: IV; Rate: 1 bolus; Site: left forearm; lg3 05:53 Drug: Ondansetron IVP 4 mg Route: IVP; Site: left forearm; lg3 05:53 Drug: Ketorolac IVP 30 mg Route: IVP; Site: left forearm; lg3 Disposition Summary: 04/12/23 08:32 Discharge Ordered Location: Home sp3 Condition: Stable sp3 Diagnosis - Tracheostomy occlusion and replacement, soft tissue neck swelling sp3 Followup: sp3 - With: Private Physician - When: Upon discharge from the Emergency Department - Reason: Continuance of care Discharge Instructions: - Discharge Summary Sheet sp3 - How to Clean a Tracheostomy Tube, Adult sp3 Forms: - Medication Reconciliation Form sp3 - Thank You Letter sp3 - Antibiotic Education sp3 - Prescription Opioid Use sp3 - Patient Portal Instructions sp3 Signatures: Dispatcher [employer] Mayte Rubio, ANNE-MARIE RN lg3 Lakhwinder Darden MD MD sp3 Eneida Moses rv1 Sal Gentile MD MD sp4 Jaciel Lu RN jb4
--- NOTE | 2023-04-12 08:33 | ER ---
Nurse's Notes [facility] Name: Brii Garcia Age: 43 yrs Sex: Female : 1980 Arrival Date: 04/12/2023 Time: 05:14 Bed 7 Private MD: Diagnosis: Tracheostomy occlusion and replacement, soft tissue neck swelling Presentation: 04/12 05:27 Chief complaint: EMS states: HX of throat and mouth cancer. had Trach placed and tongue lg3 removal roughly 2 months ago. new onset swelling to left jaw. pain 10/10. denies fever. pt also in need of new inner cannula for Trach. Coronavirus screen: Client denies travel out of the [place] in the last 14 days. At this time, the client does not indicate any symptoms associated with coronavirus-19. Ebola Screen: No symptoms or risks identified at this time. Initial Sepsis Screen: Does the patient meet any 2 criteria? No. Patient's initial sepsis screen is negative. Does the patient have a suspected source of infection? No. Patient's initial sepsis screen is negative. Risk Assessment: Do you want to hurt yourself or someone else? Patient reports no desire to harm self or others. Onset of symptoms was April 10, 2023. 05:27 Method Of Arrival: EMS: [facility] lg3 05:27 Acuity: ANG 3 lg3 Triage Assessment: 05:32 General: Appears in no apparent distress. comfortable, Behavior is calm, cooperative, lg3 Smells of alcohol. Pain: Complains of pain in left submandibular area Pain currently is 10 out of 10 on a pain scale. EENT: No signs and/or symptoms were reported regarding the EENT system. Oral mucosa is moist. absence of tongue noted. Neuro: No deficits noted. [place] Agitation-Sedation Scale (RASS): 0 - Alert and Calm Level of Consciousness is awake, alert, obeys commands, Oriented to person, place, time, situation. Cardiovascular: No deficits noted. Denies chest pain, shortness of breath, Capillary refill < 3 seconds Clubbing of nail beds is absent JVD is absent Patient's skin is warm and dry. Respiratory: Airway via trache Respiratory effort is even, unlabored, Respiratory pattern is regular, symmetrical, Sputum is thick, brown Denies shortness of breath. GI: Abdomen is flat, non-distended, PEG tube in place, clamped. Site clean. : No deficits noted. No signs and/or symptoms were reported regarding the genitourinary system. Derm: Skin is intact, is healthy with good turgor, Skin is dry, Skin is normal, Skin temperature is warm swelling noted to left jaw. Musculoskeletal: No deficits noted. No signs and/or symptoms reported regarding the musculoskeletal system. Circulation, motion, and sensation intact. Range of motion: intact in all extremities. Historical: - Allergies: 05:32 No Known Allergies; lg3 - Home Meds: 05:32 unknown pain medication [Active]; unknown anxiety medication [Active]; lg3 - PMHx: 05:32 Squamous cell carcinoma of tongue; Anxiety; lg3 - PSHx: 05:32 Carcinoma removed; G tube placement; tracheostomy; total tongue removal; right leg; lg3 - Immunization history:: Adult Immunizations up to date, Client reports receiving the 2nd dose of the Covid vaccine. - Social history:: Smoking status: Patient/guardian denies using tobacco, Patient uses alcohol, occasionally. - Family history:: not pertinent. Screenin:38 [facility] ED Fall Risk Assessment (Adult) History of falling in the last 3 months, lg3 including since admission No falls in past 3 months (0 pts). Abuse screen: Denies threats or abuse. Denies injuries from another. Nutritional screening: No deficits noted. Tuberculosis screening: No symptoms or risk factors identified. Assessment: 05:38 General: see triage assessment. lg3 06:08 General: notified lab of needed blood draw . lg3 06:57 Reassessment: Patient appears in no apparent distress at this time. No changes from lg3 previously documented assessment. Patient and/or family updated on plan of care and expected duration. Pain level reassessed. Patient is alert, oriented x 3, equal unlabored respirations, skin warm/dry/pink. Patient states symptoms have improved. 07:21 Reassessment: patient to CT. db Vital Signs: 05:27 BP 94 / 68; Pulse 94; Resp 16 S; Temp 97.4(A); Pulse Ox 100% on R/A; Weight 53.98 kg lg3 (R); Height 5 ft. 1 in. (R); Pain 10/10; 06:30 BP 92 / 66; Pulse 85; Resp 18; Pulse Ox 100% ; ko1 07:30 BP 89 / 67; Pulse 82; Resp 18; Pulse Ox 100% ; ko1 08:00 BP 88 / 66; Pulse 82; Resp 18; Pulse Ox 100% ; ko1 08:58 BP 94 / 68; Pulse 85; Resp 16; Pulse Ox 100% ; ko1 05:27 Body Mass Index 22.48 (53.98 kg, 154.94 cm) lg3 05:27 Pain Scale: Adult lg3 ED Course: 05:16 Patient arrived in ED. jj6 05:20 Sal Gentile MD is Attending Physician. sp4 05:27 Mayte Quintanilla, RN is Primary Nurse. lg3 05:32 Triage completed. lg3 05:32 Arm band placed on right wrist. lg3 05:38 Patient has correct armband on for positive identification. Placed in gown. Bed in low lg3 position. Call light in reach. Side rails up X 1. Client placed on continuous cardiac and pulse oximetry monitoring. NIBP monitoring applied. Door closed. Noise minimized. Warm blanket given. 05:38 Maintain EMS IV. Dressing intact. Good blood return noted. Site clean \T\ dry. Gauge \T\ lg 3 site: 20 LFA. Patient maintains SpO2 saturation greater than 95% on room air. 05:39 Suctioned orally - moderate amount thin clear sputum. via trachea - moderate amount lg3 thick white sputum Changed inner cannula. 05:53 BMP Sent. lg3 07:11 Attending Physician role handed off by Sal Gentile MD sp3 07:11 Lakhwinder Darden MD is Attending Physician. sp3 07:40 CT Soft Tissue Neck W/contr In Process Unspecified. EDMS 08:39 BMP Sent. ko1 08:58 Provided Education on: NA. ko1 08:58 No provider procedures requiring assistance completed. IV discontinued, intact, ko1 bleeding controlled, No redness/swelling at site. Pressure dressing applied. Administered Medications: 05:33 Not Given (Patient Refused): Zofran IM 4 mg IM once sp4 05:35 Not Given (Other Intervention Used): Tylenol-Codeine #3 PO (120 mg - 12 mg) 15 ml PO jb4 once; RASS on ADMIN: Combtv4, Very Agttd3, Agttd2, Rstlss1, AlertClm0, Drwsy-1, Lt Sdtn-2, Mod Sdtn-3, Dp Sdtn-4, UnArsble-5 05:53 Drug: NS 0.9% IV 1000 ml Route: IV; Rate: 1 bolus; Site: left forearm; lg3 05:53 Drug: Ondansetron IVP 4 mg Route: IVP; Site: left forearm; lg3 05:53 Drug: Ketorolac IVP 30 mg Route: IVP; Site: left forearm; lg3 Medication: 08:58 VIS not applicable for this client. ko1 Outcome: 08:32 Discharge ordered by . sp3 08:58 Discharged to home via wheelchair, with family. ko1 08:58 Condition: good 08:58 Discharge instructions given to patient, Instructed on discharge instructions, follow up and referral plans. Demonstrated understanding of instructions, follow-up care. 09:04 Patient left the ED. ko1 Signatures: Dispatcher [employer] EDMS Mayte Quintanilla RN RN lg3 Lakhwinder Darden MD MD sp3 Noemi Tapia jj6 Francia Solares RN RN ko1 Kathrin Tobar RN RN Sal Gonzalez MD MD sp4 Jaciel Lu RN jb4
[2023-04-12 09:10] VITALS: TEMP 97.4; O2SAT 100
[2023-04-12 09:14] VITALS: BP 94/68
== END 2023-04-12 09:04 | disposition home or self-care (01) ==
LOC: ER 05:14
DX: J95.03 Malfunction of tracheostomy stoma (principal); Z85.810 Personal history of malignant neoplasm of tongue; F41.9 Anxiety disorder, unspecified
CPT/HCPCS: 70491; Q9967; J2405; J7030

== ENCOUNTER 2023-04-18 01:06 | Emergency (ER) | payer OTHER ==
--- OUTSIDE RECORDS SUMMARY | 2023-04-18 01:13 | XMS REPORT | Continuity of Care Document ---
:1980 Author Organization [facility] t Address [address] [place] [address] [place] [id number] Care Team Providers Name Role Phone SUSANNA WICK Attending Clinician Unavailable YENIFER MALLOY Attending Clinician Unavailable CARLOS GRAJEDA Attending Clinician Unavailable Carlos Grajeda MD Attending Clinician [phone] Jose Snyder MD Attending Clinician Demetrius Dugan MD Attending Clinician Shantanu KHALIL, Yash Maurer Attending Clinician [phone] Alvin Alcala Attending Clinician Unavailable Maryann Mclean MD Attending Clinician Susanna Wick MD Attending Clinician Abdoulaye Johnson MD Attending Clinician ABDOULAYE JOHNSON Attending Clinician Unavailable Eloisa XIE, Gypsy Attending Clinician Unavailable Yenifer Malloy Attending Clinician Aruna Packer LMSW Attending Clinician Unavailable Prabha Narvaez Attending Clinician [phone] PRABHA WINN Attending Clinician Unavailable Yolanda KHALIL, Mindy Cobb Attending Clinician [phone] Attending Clinician Unavailable Judit Lau Attending Clinician Meño KHALIL, Mariaa Vitale Attending Clinician Kimberli Sierra MD Attending Clinician KIMBERLI SIERRA Attending Clinician Unavailable Chika Rosa Attending Clinician Unavailable SUSANNA WICK Admitting Clinician Unavailable JUDIT LAU Admitting Clinician Unavailable Payers Payer Name Policy Type Policy Number Effective Date Expiration Date S ource [place] [id number] 2022 00:00:00 Problems Condition Condition Condition Status Onset Resolution Last Treating Co mments Source Name Details Category Date Date Treatment Clinician Date 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 Oral phase Oral phase Disease Recurre [facility] dysphagia dysphagia nce - [facility] 00:00: Medical 00 [place] Oropharyng Oropharyng Disease Active [facility] eal cancer eal cancer 01-18 [facility] 00:00: Medical 00 Center Allergies, Adverse Reactions, Alerts Allergy Allergy Status Severity Reaction(s) Onset Inactive Treating Comm ents Source Name Type Date Date Clinician Hydrocod Drug Active Other (See Headaches [facility] one Allergy Comments) 02-21 [facility] 00 Center HYDROCOD Allergy Active High Other [facility] ONE -20 [facility] 00:00: Medical 00 [place] No Known DA Active U [facility] Drug 05-12 Allergie 00:00: s 00 NO KNOWN Allergy Active [facility] Family History Family Member Diagnosis Comments Start Date Stop Date Source Natural father Lung cancer [facility] Maternal aunt Cancer [facility] Maternal uncle Prostate cancer [facility] Maternal uncle Kidney failure [facility] Natural mother Stomach cancer [facility] Social History Social Habit Start Date Stop Date Quantity Comments Source History of tobacco [facility]igarette [facility] History [facility]Med [facility] Alcohol intake 2023-03-08 2023-03-08 Ex-drinker [facility] 00:00:00 00:00:00 (finding) Medical Center Exposure to 2023-02-22 2023-03-04 Not sure [facility] SARS-CoV-2 (event) 00:00:00 02:06:00 Medica l Center History [facility] 2023-03-04 2023-03-[address] [facility] Med 00:00:00 00:00:[address] History [facility] 2023-03-04 2023-03-[address] [facility] Unable to 00:00:00 00:00:00 Medical Center Pay History [facility] 2023-03-04 2023-03-[address] [facility] 00:00:00 00:00:00 Medical Ce nter Lived History [facility] 2023-03-04 2023-03-[address] [facility] Homeless 00:00:00 00:00:00 Medical Center Last Year Cigarettes smoked 2023-02-23 2023-02-23 [facility] current (pack per 00:00:00 00:00:00 Medical Center day) - Reported Cigarette 2023-02-23 2023-02-23 [facility]00 00:00:00 Medical Center Tobacco use and 2023-02-23 2023-02-23 Smokeless tobacco [facility] exposure 00:00:00 00:00:00 non-user Medical Center Alcohol Comment 2023-01-18 2023-01-18 every other week[facility] 00:[facility]00:00 1 can Medical Center Sex Assigned At [address] [facility] 00:00:00 00:00:00 Medical Center Smoking Status Start Date Stop Date Source Smokes tobacco daily 2023-02-23 00:00:00 [facility] Medications Ordered Filled Start Stop [...] (5 mg [facility] solution 07:57: total) by [place] [address] mouth Center every 4 (four) hours as needed for Pain. morphine 10 2022-0 Yes 5mg Take 2.[address] mg/5 mL 7-01 mLs (5 mg [facility] solution 07:57: total) by [place] [address] mouth Center every 4 (four) hours as needed for Pain. morphine 10 2022-0 Yes 5mg Take 2.[address] mg/5 mL 7-01 mLs (5 mg [facility] solution 07:57: total) by [place] [address] mouth Center every 4 (four) hours as needed for Pain. ondansetron 0 Yes 8mg Take 1 [facility] [...] for Nausea. ondansetron 0 Yes 8mg Take [address] [facility] (ZOFRAN-ODT 6-30 tablet (8 [facility] ) 8 MG 17:01: mg total) Medica l disintegrat 29 by mouth 2 Ce nter ing tablet (two) times daily as needed for Nausea. ondansetron 0 Yes 8mg Take [address] [facility] (ZOFRAN-ODT 6-27 tablet (8 [facility] ) 8 MG 14:07: mg total) Medica l disintegrat 24 by mouth 2 Ce nter ing tablet (two) times daily as needed for Nausea. morphine 10 Yes 5mg Take 2.[address] mg/5 mL 6-27 mLs (5 mg [facility] solution 13:57: total) by [facility] 48 mouth Center every 4 (four) hours as needed for Pain. miscellaneo Yes Oral [facility] medical 6-24 suction [facility] supply Misc 00:00: machine. Nh dical 00 Center miscellaneo 0 Yes Oral [...] 6-24 suction [facility] supply Misc 00:00: machine. Nh dical 00 Center methadone Yes Cancer 2mg Take [address] (DOLOPHINE) 6-23 associated (2 mg L ukes 5 mg/5 mL 00:00: pain total) by [facility] ical solution 00 mouth Center every 12 (twelve) hours. lactulose 0 Yes 20g Q.[id number] Take [address] (CHRONULAC) 6-23 [id number] mLs (20 g [facility]ukes 10 gram/15 00:00: 3D total) by Nh dical mL solution 00 mouth 3 Cente [...] 12 (twelve) hours. lactulose 3-0 Yes 20g Q.[id number] Take [address] (CHRONULAC) 6-23 [id number] mLs (20 g [facility]ukes 10 gram/15 00:00: [...] 12 (twelve) hours. lactulose 3-0 Yes 20g Q.[id number] Take [address] (CHRONULAC) 6-23 [id number] mLs (20 g [facility] 10 gram/15 00:00: 3D total) by Nh dical mL solution 00 mouth 3 Cente [...] 12 (twelve) hours. lactulose 2023-0 Yes 20g Q.[id number] Take [address] (CHRONULAC) 6-23 [id number] mLs (20 g [facility] 10 gram/15 00:00: [...] mouth Center every 12 (twelve) hours. lactulose 2022-0 Yes 20g Q.[id number] Take [address] (CHRONULAC) 6-23 [id number] mLs (20 g [facility]ukes 10 gram/15 00:00: 3D total) by Nh dical mL solution 00 mouth 3 Cente r (three) times daily. viscous 2022-0 Yes 5mL Swish and [facility] t lidocaine 6-23 spit 5 mLs Luke s 2% (VISCOUS 00:00: every 6 Med ical LIDOCAINE) 00 (six) Center 2 % Soln hours as mucosal needed. solution lactulose 2022-0 Yes 20g Q.[id number] Take [address] (CHRONULAC) 6-23 [id number] mLs (20 g [facility] 10 gram/15 00:00: 3D total) by Nh dical mL solution 00 mouth 3 Cente r (three) times daily. viscous 2022-0 Yes 5mL Swish and [facility] t lidocaine 6-23 spit 5 mLs Luke s 2% (VISCOUS 00:00: every 6 Med ical LIDOCAINE) 00 (six) Center 2 % Soln hours as mucosal needed. solution nicotine 2022-0 2022- Yes 1{patch Q24H Place [address] (NICODERM 02-24 07- } patch onto [facility] CQ) 14 00:00: 23:59 the skin Medica l mg/24 hr 00 :00 daily for Center patch 30 days. nicotine 2022-0 2022- Yes 1{patch Q24H Place [address] (NICODERM 02-24 07-23 } patch onto [facility] CQ) 14 [...] :00 nightly Center for 30 days. sennosides 2022- No 10mL QD Take [address] (SENOKOT) 02-23-22 mLs by [facility]ukes 8.8 mg/5 mL 00:00: 00:00 mouth Medi jasmina syrup 00 :00 nightly Center for 30 days. gabapentin 2022- No 300mg Take [address] (NEURONTIN) 02-23- (300 mg Luke s 300 mg/6 mL 00:00: 00:00 total) by Medical (6 mL) Soln 00 :00 mouth 3 Cente r solution (three) times daily as needed (sharp pain) for up to 30 days. ondansetron 2022- No 8mg Take [address] (ZOFRAN) 4 02-23-22 mLs (8 mg [facility] mg/5 mL 00:00: 00:00 total) by Medi jasmina solution 00 :00 mouth Center every 8 (eight) hours as needed for Nausea. sennosides 2022- No 10mL QD Take [address] (SENOKOT) 6- 06-22 mLs by [facility]ukes 8.8 mg/5 mL 00:00: 00:00 mouth Medi jasmina syrup 00 :00 nightly Center for 30 days. gabapentin 2022- No 300mg Take [address] (NEURONTIN) 02-23-22 (300 mg Luke s 300 mg/6 mL 00:00: 00:00 total) by Medical (6 mL) Soln 00 :00 mouth 3 Cente r solution (three) times daily as needed (sharp pain) for up to 30 days. ondansetron 3-0 3- No 8mg Take [address] (ZOFRAN) 4 - 06-22 mLs (8 mg [facility] mg/5 mL 00:00: 00:00 total) by Medi jasmina solution 00 :00 mouth Center every 8 (eight) hours as needed for Nausea. sennosides 2022-0 2022- No 10mL QD Take [address] (SENOKOT) 6- 06-22 mLs by [facility]ukes 8.8 mg/5 mL [...] Take [address] (ZOFRAN) 4 - 06-22 mLs (8 mg [facility] [place] mg/5 mL 00:00: 00:00 total) by Medi jasmina solution 00 :00 mouth Center every 8 (eight) hours as needed for Nausea. sennosides 3-0 3- No 10mL QD Take [address] (SENOKOT) 6- 06-22 mLs by [facility]ukes 8.8 mg/5 mL 00:00: 00:00 mouth Medi jasmina syrup 00 :00 nightly Center for 30 days. gabapentin 3-0 3- No 300mg Take [address] (NEURONTIN) 6- 06-22 (300 mg Luke s 300 mg/6 mL 00:00: 00:00 total) by Medical (6 mL) Soln 00 :00 mouth 3 Cente r solution (three) times daily as needed (sharp pain) for up to 30 days. ondansetron 2022-0 2023- No 8mg Take 10 CH I [...] hours as needed for Nausea. sennosides 2022-0 2022- No 10mL QD Take [address] (SENOKOT) 6- 06-22 mLs by [facility]ukes 8.8 mg/5 mL [...] for Pain (kimberlyn pain) Liquid form. HYDROcodone 2022-0 2022- No Take by [facility] -acetaminop 5-19 05-19 mouth [facility]ukes hen (NORCO 09:54: 00:00 every 6 Med ical 7.5-325) 24 :00 (six) Center 7.5-325 mg hours as per tablet needed for Pain (kimberlyn pain) Liquid form. HYDROcodone 2022-0 2022- No Take by [facility] -acetaminop 5-19 05-19 mouth [facility] hen (NORCO 09:54: 00:00 every 6 Med ical 7.5-325) 24 :00 (six) Center 7.5-325 mg hours as per tablet needed for Pain (kimberlyn pain) Liquid form. HYDROcodone 2022-0 2022- No Take by [facility] -acetaminop 5-19 05-19 mouth [facility]ukes hen (NORCO 09:54: 00:00 every 6 Med ical 7.5-325) 24 :00 (six) Center 7.5-325 mg hours as per tablet needed for Pain (kimberlyn pain) Liquid form. HYDROcodone 2022-0 2022- No Take by [facility] -acetaminop 5-19 05-19 mouth [facility]ukes hen (NORCO 09:54: 00:00 every 6 Med ical 7.5-325) 24 :00 (six) Center 7.5-325 mg hours as per tablet needed for Pain (kimberlyn pain) Liquid form. cyanocobala 2023-0 Yes 1[drp] QD Place 1 [...] Take 0.[address] 100 mg/5 mL 01-20-18 mLs (10 mg L ukes (20 mg/mL) 00:00: 23:59 total) by Joao rankin 00 :00 mouth Center d solution [...] No 8mg Take [address] [facility] (ZOFRAN-ODT -19 -18 tablet (8 Crista kes ) 8 MG [...] kg Heart rate 2023-03-13 11:21:03 77 /min [facility] Body temperature 2023-03-13 11:21:03 36.78 Margi [facility] Respiratory rate 2023-03-13 11:21:03 17 /min [facility] Oxygen saturation in 2023-03-13 11:21:03 98 /min [facility] Arterial blood by Medical Ce nter Pulse oximetry Systolic blood 2023-03-13 11:20:30 97 mm[Hg] [facility] Diastolic blood 2023-03-13 11:20:30 68 mm[Hg] [facility] Heart rate 2023-03-10 07:45:31 75 /min [facility] Respiratory rate 2023-03-10 07:45:31 16 /min [facility] Oxygen saturation in 2023-03-10 07:45:31 100 /min [facility] Arterial blood by Medical Ce nter Pulse oximetry Body temperature 2023-03-10 07:44:56 36.94 Margi [facility] Systolic blood 2023-03-10 07:44:15 119 mm[Hg] [facility] Diastolic blood 2023-03-10 07:44:15 86 mm[Hg] [facility] Heart rate 2023-03-09 11:34:32 74 /min [facility] Respiratory rate 2023-03-09 11:34:32 18 /min [facility] Oxygen saturation in 2023-03-09 11:34:32 99 /min [facility] Arterial blood by Medical Ce nter Pulse oximetry Body temperature 2023-03-09 11:34:02 36.61 Margi [facility] Systolic blood 2023-03-09 11:33:45 124 mm[Hg] [facility] Diastolic blood 2023-03-09 11:33:45 90 mm[Hg] [facility] Systolic blood 2023-03-08 10:30:00 136 mm[Hg] [facility] Diastolic blood 2023-03-08 10:30:00 100 mm[Hg] [facility] Heart rate 2023-03-08 10:30:00 64 /min [facility] Respiratory rate 2023-03-08 10:30:00 11 /min [facility] Oxygen saturation in 2023-03-08 10:30:00 99 /min [facility] Arterial blood by Medical Ce nter Pulse oximetry Body temperature 2023-03-08 09:54:00 36 Margi [facility] Body height 2023-03-03 12:40:00 152.4 cm [facility] Body weight 2023-03-03 12:40:00 54.885 kg [facility] BMI 2023-03-03 12:40:00 23.63 kg/m2 [facility] Body height 2023-02-28 14:00:00 154.9 cm [facility] Body weight 2023-02-28 14:00:00 56.246 kg [facility] BMI 2023-02-28 14:00:00 23.43 kg/m2 [facility] Systolic blood 2023-02-24 08:13:00 120 mm[Hg] [facility] Diastolic blood 2023-02-24 08:13:00 97 mm[Hg] [facility] Heart rate 2023-02-24 08:13:00 88 /min [facility] Body height 2023-02-24 08:13:00 154.9 cm [facility] Body weight 2023-02-24 08:13:00 56.337 kg [facility] BMI 2023-02-24 08:13:00 23.47 kg/m2 [facility] Oxygen saturation in 2023-02-24 08:13:00 100 /min [facility] Arterial blood by Medical Ce nter Pulse oximetry Body temperature 2023-02-23 08:02:00 37 Margi [facility] Systolic blood 2023-01-20 07:55:00 136 mm[Hg] [facility] Diastolic blood 2023-01-20 07:55:00 82 mm[Hg] [facility] Heart rate 2023-01-20 07:55:00 71 /min [facility] Body temperature 2023-01-20 07:55:00 36.44 Margi [facility] Respiratory rate 2023-01-20 07:55:00 18 /min [facility] Oxygen saturation in 2023-01-20 07:55:00 100 /min [facility] Arterial blood by Medical Ce nter Pulse oximetry Systolic blood 2023-01-19 12:52:00 128 mm[Hg] [facility] Diastolic blood 2023-01-19 12:52:00 85 mm[Hg] [facility] Heart rate 2023-01-19 12:52:00 66 /min [facility] Body temperature 2023-01-19 12:52:00 36.72 Margi [facility] Respiratory rate 2023-01-19 12:52:00 18 /min [facility] Oxygen saturation in 2023-01-19 12:52:00 100 /min [facility] Arterial blood by Medical Ce nter Pulse oximetry Body height 2023-01-18 04:00:00 154.9 cm [facility] Body weight 2023-01-18 04:00:00 57.561 kg [facility] BMI 2023-01-18 04:00:00 23.98 kg/m2 [facility] Procedures Procedure Date / Time Performing Clinician Source Performed GLOSSECTOMY, TOTAL 2023-03-14 07:30:00 Susanna Wick [facility] DISSECTION, NECK, RADICAL 2023-03-14 07:30:00 Susanna Wick [facility] SKIN FLAP PROCEDURE, 2023-03-14 07:30:00 Vinh Alcocer [facility] FREE FLAP PROCEDURE, 2023-03-14 07:30:00 Vinh Alcocer [facility] LOWER EXTREMITY, WITH Medical Ce nter MICROVASCULAR ANASTOMOSIS FLAP PROCEDURE, MUSCLE, 2023-03-14 07:30:00 Vinh Alcocer [facility] CREATION, FLAP, ROTATION 2023-03-14 07:30:00 Vinh Alcocer [facility] POCT-GLUCOSE METER 2023-03-13 11:44:00 Susanna Wick [facility] POCT-GLUCOSE METER 2023-03-13 06:05:00 [facility]ABOLIC PANEL 2023-03-13 03:53:00 Cayden [facility] MAGNESIUM 2023-03-13 03:53:00 Cayden [facility] PHOSPHORUS 2023-03-13 03:53:00 Cayden [facility] POCT-GLUCOSE METER 2023-03-13 00:08:00 [facility] 2023-03-12 15:54:00 Susanna Wick [facility] POCT-GLUCOSE METER 2023-03-12 12:22:00 Susanna Wick [facility] POCT-GLUCOSE METER 2023-03-12 06:14:00 Susanna Wick [facility] BASIC METABOLIC PANEL 2023-03-12 03:31:00 Cayden [facility] MAGNESIUM 2023-03-12 03:31:00 Cayden [facility] PHOSPHORUS 2023-03-12 03:31:00 Cayden [facility] POCT-GLUCOSE METER 2023-03-11 23:54:00 [facility]SE [facility]ER 2023-03-11 16:29:00 Debra [facility] POCT-GLUCOSE METER 2023-03-11 12:28:00 Debra [facility] POCT-GLUCOSE METER 2023-03-11 06:03:00 Susanna Wick [facility] BASIC METABOLIC PANEL 2023-03-11 04:02:00 [facility] 2023-03-11 04:02:00 Cayden [facility] PHOSPHORUS 2023-03-11 04:02:00 Cayden [facility] BASIC METABOLIC PANEL 2023-03-10 06:07:00 Cayden [facility] MAGNESIUM 2023-03-10 06:07:00 Cayden [facility] PHOSPHORUS 2023-03-10 06:07[facility] 2023-03-10 05:58:00 Susanna Wick [facility] POCT-GLUCOSE METER 2023-03-09 23:19:00 Susanna Wick [facility] POCT-GLUCOSE METER 2023-03-09 17:49:00 Susanna Wick [facility] POCT-GLUCOSE METER 2023-03-09 11:35:00 Susanna Wick [facility] POCT-GLUCOSE METER 2023-03-09 06:08:00 Susanna Wick [facility] CBC W/PLT COUNT & AUTO 2023-03-09 04:54:00 Cayden [facility] BASIC METABOLIC PANEL 2023-03-09 04:54:00 Cayden [facility] MAGNESIUM 2023-03-09 04:54:00 Cayden [facility] PHOSPHORUS 2023-03-09 04:54:00 [facility], MANUAL 2023-03-09 04:54:00 Cayden [facility] CBC W/PLT COUNT & AUTO 2023-03-09 04:54:00 Cayden [facility] POCT-GLUCOSE METER 2023-03-08 23:36:00 [facility] POCT-GLUCOSE METER 2023-03-08 17:43:00 Debra [facility] POCT-GLUCOSE METER 2023-03-08 11:29:00 Susanna Wick [facility] INSERTION, GASTROSTOMY 2023-03-08 07:55:00 Lillian Jose Kelley [facility] TUBE, LAPAROSCOPIC Medical Cente r POCT , URINE 2023-03-08 07:31:00 Sofie Blackwood [facility] TYPE AND SCREEN, 2023-03-08 07:28:00 Lillian, Jose Kelley [facility] POCT-GLUCOSE METER 2023-03-08 05:51:00 Debra [facility] CBC W/PLT COUNT & AUTO 2023-03-08 03:29:00 [facility] BASIC METABOLIC PANEL 2023-03-08 03:29:00 Cayden [facility] MAGNESIUM 2023-03-08 03:29:00 [facility] 2023-03-08 03:29:00 [facility] CBC W/PLT COUNT & AUTO 2023-03-08 03:29:00 Lito Hernandez CH, I [facility] DIFFERENTIAL [facility] POCT-GLUCOSE METER 2023-03-07 23:30:00 Susanna Wick [facility] POCT-GLUCOSE METER 2023-03-07 17:42:00 Debra [facility] POCT-GLUCOSE METER 2023-03-07 12:05:00 Debra [facility] POCT-GLUCOSE METER 2023-03-07 06:28:00 Debra [facility] CBC W/PLT COUNT & AUTO 2023-03-07 04:54:00 Cayden [facility] BASIC METABOLIC PANEL 2023-03-07 04:54:00 Cayden [facility] MAGNESIUM 2023-03-07 04:54:00 IainZak hernandez [facility] PHOSPHORUS 2023-03-07 04:54:00 Cayden [facility] CBC W/PLT COUNT & AUTO 2023-03-07 04:54:00 Lito Hernandez CH, I [facility] DIFFERENTIAL [facility] POCT-GLUCOSE METER 2023-03-06 23:58:00 Susanna Wick [facility] POCT-GLUCOSE METER 2023-03-06 17:09:00 Susanna Wick [facility] SCREEN, URINE 2023-03-06 14:44:00 Jose Snyder [facility] POCT-GLUCOSE METER 2023-03-05 16:54:00 Debra [facility] POCT-GLUCOSE METER 2023-03-05 12:26:00 Susanna Wick [facility] CBC W/PLT COUNT & AUTO 2023-03-05 05:07:00 Chadd Clemente [facility] COMPREHENSIVE METABOLIC 2023-03-05 05:07:00 Chadd Clemente [facility] PANEL [facility] PREALBUMIN 2023-03-05 05:07:00 Chadd Clemente [facility] APTT 2023-03-05 05:07:00 Chadd Clemente [facility] PROTHROMBIN TIME/INR 2023-03-05 05:07:00 Chadd Clemente [facility] CBC W/PLT COUNT & AUTO 2023-03-05 05:07:00 Chadd Clemente [facility] HC LAB HIV-1 AG W/HIV-1&2 2023-03-04 12:31:00 Fall, Nakul Justice [facility] HEPATITIS C ANTIBODY 2023-03-04 12:31:00 FallNakul [facility] PREALBUMIN 2023-03-04 12:31:00 Nakul Edmond [facility] XR ABDOMEN/KUB 1 VIEW 2023-03-03 18:48:00 Rick Ball [facility] LARYNGOSCOPY, WITH BIOPSY 2023-03-03 16:15:00 Susanna Wick [facility] LARYNGOSCOPY, WITH BIOPSY 2023-03-03 14:48:00 Susanna Wick [facility] POCT , URINE 2023-03-03 13:08:00 Maryann Mclean [facility] CT CHEST WITH IV CONTRAST 2023-02-23 12:27:50 Prabha Winn [facility] CT NECK SOFT TISSUE WITH 2023-02-23 12:27:31 Prab[address] Winn [facility] IV CONTRAST [facility] XT NORMAL BLOOD (TEMPUS) 2023-02-23 10:54:00 Carlos Grajeda [facility] BASIC METABOLIC PANEL 2023-01-20 04:17:00 Mariaa Wilder [facility] MAGNESIUM 2023-01-20 04:17:00 [facility] 2023-01-20 04:17:00 [facility] BASIC METABOLIC PANEL 2023-01-19 05:08:00 Mariaa Wilder [facility] MAGNESIUM 2023-01-19 05:08:00 [facility] 2023-01-19 05:08:00 [facility] VIT[facility] B12 2023-01-19 05:08:00 Meño [facility] IRON, TIBC, % SAT. 2023-01-19 05:08:00 Mariaa Wilder [facility] (WITHOUT FERRITIN) Medical Cente r CT CHEST WITH IV CONTRAST 2023-01-18 14:51:00 Cesia Lau [facility] CBC W/PLT COUNT & AUTO 2023-01-18 05:18:[address]a Hurd PR [facility] DIFFERENTIAL [facility] COMPREHENSIVE METABOLIC 2023-01-18 05:18:[address] kes PANEL [facility] MAGNESIUM 2023-01-18 05:18:[address] [facility] PHOSPHORUS 2023-01-18 05:18:[address] [facility] CBC W/PLT COUNT & AUTO 2023-01-18 05:18:[address] Vannessa [address] [facility] DIFFERENTIAL [facility] Plan of Care Planned Activity Planned Date [...] Medica l Center cervix (procedure) [code = [id number]] Future Scheduled 2019-04-[address] [facility] Test 00:00:00 malignant neoplasm of Medica l Center cervix (procedure) [code = [id number]] Future Scheduled 2019-04-[address] [facility] Test 00:00:00 malignant neoplasm of [facility] (procedure) [code = 615291287] Future Scheduled 2019-04-[address] [facility] cervix (procedure) [code = 120192235] Future Scheduled 2019-04-[address] [facility] 00:00:00 [facility] cerv[facility] (procedure) [code = 603290737] Future Scheduled 2019-04-[address] [facility] 00:00:00 [facility] cervix (procedure) [code = 548848850] Future Scheduled [address] [facility] 00:00:00 [facility] cerv[facility] (procedure) [code = 019962400] Future Scheduled [address] [facility] 00:00:00 [facility] cerv[facility] (procedure) [code = 809621940] Future Scheduled [address] [facility] 00:00:00 [facility] cervix (procedure) [code = 600309120] Future Scheduled [address] [facility] 00:00:00 [facility] cervix (procedure) [code = 720075419] Future Scheduled [address] [facility] 00:00:00 [facility] cervix (procedure) [code = 207511245] Future Scheduled [address] [facility] 00:00:00 [facility] cervix (procedure) [code = 562698978] Future Scheduled [address] [facility] 00:00:00 [facility] cervix (procedure) [code = 461703279] Future Scheduled [address] [facility] 00:00:00 [facility] cervix (procedure) [code = 037472360] Future Scheduled [address] [facility] 00[facility]:00 (procedure) [code = [facility] 87985859] Future Scheduled [address] [facility] 00:[facility]:00 (procedure) [code = [facility] 06602073] Future Scheduled [address] [facility] 00:00:00 (procedure) [code = [facility] Center 26908574] Future Scheduled [address] [facility] 00:00:00 (procedure) [code = [facility] 34202928] Future Scheduled [address] [facility] 00:00:00 (procedure) [code = [facility] Center 05616831] Future Scheduled [address] [facility] 00:00:00 (procedure) [code = [facility] Center 13506685] Future Scheduled [address] [facility] 00:00:00 (procedure) [code = [facility] 63831641] Future Scheduled [address] [facility] 00:00:00 (procedure) [code = [facility] Center 06624600] Future Scheduled [address] [facility] 00:00:00 (procedure) [code = [facility] Center 91177255] Future Scheduled [address] [facility] 00:00:00 (procedure) [code = [facility] Center 79298832] Future Scheduled [address] [facility] 00:00:00 (procedure) [code = [facility] 52854041] Future Scheduled [address] [facility] 00:00:00 (procedure) [code = [facility] Center 66224457] Future Scheduled 2001 DTAP/TDAP/TD VACCINES CH I [...] Type Clinicians Facility Department ID 2023-03-09 Outpatient [facility] Surgery [id number] [facility] 08:48:52 2023-03-03 Inpatient YOLANDE BARAJAS [facility] [id number] SLE 18:30:29 SUSANNA 2023-06-05 2023-06-05 Outpatient BHAVIN [facility] [id number] [facility] 00:00:00 00:00:00 2023-05-05 2023-05-05 Outpatient BHAVIN [facility] [id number] [facility] 00:00:00 00:00:00 2023-04-12 2023-04-12 Outpatient BHAVIN MALLOY [facility] [id number] [facility] 00:00:00 00:00:00 YENIFER 2023-04-12 2023-04-12 Outpatient BHAVIN GRAJEDA [facility] [id number] [facility] 00:00:00 00:00:00 CARLOS 2023-04-04 2023-04-04 Outpatient BHAVIN [facility] [id number] [facility] 06:46:17 06:46:17 2023-03-03 2023-03-22 [facility] [id number] [facility] 12:21:00 18:52:00 SUSANNA 2023-03-13 2023-03-13 Outpatient BHAVIN GRAJEDA [facility] [id number] [facility] 00:00:00 00:00:00 CARLOS 2023-03-10 [facility]10 [facility] [id number] [facility] 12:00:00 12:00:00 Encounter Carlos wells [facility] 2023-03-10 2023-03-10 [facility] [id number] [facility] 00:00:00 00:00:00 CARLOS 2023-03-10 2023-03-10 Outpatient BHAVIN MALLOY [facility] [id number] [facility] 00:00:00 00:00:00 YENIFER 2023-03-08 2023-03-08 Surgery Lillian, [facility] [id number] 08:00:00 10:03:00 [facility] 2023-03-08 2023-03-08 Anesthesia Demetrius Dugan [facility] [id number] 07:56:00 09:55:00 [facility]23-03-05 2023-03-05 Anesthesia Alvin Alcala [facility] [id number] 19:31:18 19:31:18 Event [facility] 2023-03-04 2023-03-04 Travel [facility] [id number] [facility] 00:[facility]00 00:00:00 [facility] 2023-03-03 2023-03-03 Anesthesia Caridad [facility] [id number] 16:11[facility]00 17:19:00 [facility]23-[facility]-03 2023-03-03 Surgery Debra [facility] [id number] 13:48:00 15:23:00 [facility] 2023-03-01 2023-03-01 Procedure Abdoulaye Johnson [facility] [id number] 14:00:00 15:00:00 visit Susanna Wick [facility] 2023-03-01 2023-03-01 Travel [facility] [id number] [facility] 00:[facility]:00 00:00:00 [facility] 2023-02-28 2023-02-28 Outpatient EL YOLANDE JOHNSON [facility] [id number] SLE 11:39:48 11:39:48 ABDOULAYE 2023-02-28 2023-02-28 Outpatient EL SLE SLE [id number] [facility] 00:00:00 00:00:00 2023-02-28 2023-02-28 Telephone Eloisa [facility] [id number] 00:00:00 00:00:00 Gypsy [facility] 2023-02-28 2023-02-28 Travel [facility] [id number] [facility] 00:[facility]:00 00:00:00 [facility] 2023-02-24 2023-02-24 Office Mellissa [facility] [id number] 08:00:00 10:46:[address] [facility] 2023-02-24 2023-02-24 Outpatient YOLANDE MONET SLE [id number] [facility] 07:59:33 10:46:55 [place] 2023-02-24 2023-02-24 Outside Nicci, [facility] [id number] 00:00:00 00:00:[address] [facility] 2023-02-24 2023-02-24 Telephone Birdie, [facility] [id number] 00:00:00 00:00:00 [facility] 2023-02-23 2023-02-23 Hospital Lostnd, [facility] [id number] 11:38:18 23:59:00 Encounter [facility] 2023-02-23 2023-02-23 Outpatient YOLANDE DECKER SLE [id number] [facility]H 11:38:18 23:59:00 [facility] 2023-02-23 2023-02-23 [facility] Lost[facility], [facility] [id number] 11:37:51 11:37:51 Encounter Prabha [facility] 2023-02-23 2023-02-23 Outpatient BHAVIN WINN SLEDarryn SLE [id number] [facility]H 11:37:51 11:37:51 [facility] 2023-02-23 2023-02-23 Office Nicci, [facility] [id number] 08:00:00 11:23:[address] [facility] 2023-02-23 2023-02-23 Outpatient YOLANDE KWON SLE [id number] SLE 07:59:25 11:23:03 [facility] 2023-02-23 2023-02-23 Treatment Nicci, [facility] [id number] 10:35:00 10:50:00 [facility] 2023-02-23 2023-02-23 Outpatient EL [facility] [id number] SLE 10:44:57 10:44:57 2023-02-23 2023-02-23 Outpatient EL [facility] [id number] [facility] 00:00:00 00:00:00 2023-02-23 2023-02-23 Orders Yolanda, [facility] [id number] 00:00:00 00:00:00 Only [facility] 2023-02-23 2023-02-23 Documentat Kurt [facility] [id number] 00:00:00 00:00:00 ion [facility] 2023-02-21 2023-02-21 Orders Lostak, [facility] [id number] 00:00:00 00:00:00 Only [facility] 2023-02-15 2023-02-15 Telephone Nicci [facility] [id number] 00:00[facility]00 00:00:[address] [facility] 2023-01-18 2023-01-20 [facility] [id number] 03:16:00 12:00:00 Encounter Mariaa Wilder [facility] 2023-01-18 2023-01-20 Inpatient ER CAREN, [facility] Oncology [id number] SLE 03:16:00 12:00:00 [facility] 2023-01-18 2023-01-18 Outpatient EL NICCI [facility] [id number] SLE 00:00:00 00:00:00 [facility] 2023-01-18 2023-01-18 Travel [facility] [id number] [facility] 00:00:00 00:00:00 [facility] 2022-05-12 2022-05-12 Emergency Emergency Moe, [facility] [id number] [facility] 21:57:00 21:57:00 Amir 44 2022-05-12 2022-05-12 Emergency [facility] [id number] [facility] 21:57:00 21:57:00 44 Results Test Description Test Time Test Comments Results Result [facility] e Comments TISSUE EXAM 2023-03-24 Surgical Pathology Report 18:48:03 Case: [id number] Authorizing Provider: Susanna Wick MD Collected: 03/14/2023 09:04 AM Ordering Location: [address] Received: 03/15/2023 02:25 PM Service Pathologist: [...] CARCINOMA (0/22) Signing Pathologist Direct Phone Line: [phone] y signed by Eb Toney MD on 03/24/2023 at 6:48 PMRe-excision of the positive margins (floor of mouth, retromolar trigone, right base of tongue) are negative. Clinical correlation is recommended for the significance of the cauterized tumor at right soft tissue margin/positive margin. ORAL CAVITYLIP AND ORAL CAVITY: INCISIONAL BX, EXCISIONAL BX, RESECTION - All Thoddvoux1ci Edition - Protocol posted: 08/20/2021PECIMEN Procedure: Glossectomy: [...] ADDITIONAL FINDINGS Additional Findings: Epithelial hyperplasia A. 71624W. 84212L. 56695F. 62723, 01044 x 1, 59708 x 5, 24952 x 1, 33512 x 2E. 88993, 44687 x 1F. 80239J. 40693, 73482X. 07616 51008, 88167 x 1, 07683 x 1I. 07413, 57002 x 1Tongue cancerGlossectomy and bilateral neck lymph [...] cut surface. The lymph nodes and a digital sales representative section of this gland are submitted as described below.B1-1 possible lymph node, bisectedB2-1 lymph node, bisectedB3-1 lymph node, trisectedB 4-1 lymph node, bisectedB5-digital sales representative section of glandC. Neck, LeftPart [...] node, sectionedC4-1 lymph node, bisectedC5-1 whole possible nodeC6-digital sales representative section of glandD. Soft Tissue, [...] base of tongue (yellow at tip and anterior)B96-pcawr 2, start of aesvmhupmdE99- slice 3, continuity of wszwescvggD39- slice 4, continuity of wsflqbeluiM29- slice 5, continuity of wgrgcxtynyH98- slice 6, continuity of qewnoshvanQ18- slice 7- mass, closest deep lpmebaJ16- slice 9, Mass, with the closest left soft tissue cmyiquT85- Slice 10, digital sales representative section of massD20- Slice 11, tumor abutting right soft qqqzwoC38- D24- base of tongue, perpendicular sections, right side, with closest tumor to base of qmbdxtE33-A94- digital sales representative sections of whznoxmwmlP39- digital sales representative sections of uvulaE. Soft Tissue, [...] node, bisectedF8-1 lymph node, bisectedF9-1 lymph node, cwzuaoivL57-4 lymph node, fojomuffU03-9 lymph node, bisectedF 12-1 lymph node, bisectedF 13-4 whole possible fjvqiT23-5 whole possible nodesG. Soft Tissue, Otherspecimen received [...] lymph nodesI8-4 whole lymph nodesI9-4 whole lymph oekraF18-3 whole lymph nodesD. Soft Tissue, OtherFROZEN SECTIONSubtotal [...] the use of immunohistochemistry or special stains.D18, E53EF87 & D2-40: bzxksayjU14- hlavvkyzB5ET69- zkueogiaW58- negative I10P40- negativeControl Slides Examined: In-house known positive controls were evaluated along with the test tissue. These control slides run alongside of the patients sample show appropriate staining. Internal positive and negative controls when available are evaluated Immunohistochemistry technical testing was performed at [facility], Pathology Laboratory where it was [...] qualified to perform high complexity clinical laboratory testing.[facility], Department of Pathology, [address] [place] [address], [facility], [address] [place], [place] [address], [facility], Department of Pathology, [address] [place] [address], POCT-GLUCOSE METER 2023-03-22 12:40:41 Test Item Value Reference Range Interpretation Comme nts POC-GLUCOSE METER (BEAKER) 107 mg/dL 70-110 : TESTED AT [address] (test code = 1538) [facility] X, [address]: Cassandra Developer/Techni federico ID = [id number] for TIRSO JAVIER [id number] 07:32:41 Test Item Value Reference Range Interpretation Comments MAGNESIUM (BEAKER) (test code = 2.0 mg/dL 1.6-2.6 627) Cassandra Developer ID - [id number] 07:32:41 Test Item Value Reference Range Interpretation Comments PHOSPHORUS (BEAKER) (test code = 5.2 mg/dL 2.3-4.7 H 604) Cassandra Developer ID - EOOBASIC METABOLIC [id number] 07:32:40 Test Item Value Reference Range Interpretation [...] is not appl icable for dialysis patien erin Cassandra Developer ID - EOOPOCT-GLUCOSE [id number] 06:26:25 Test Item Value Reference Range Interpretation Comments POC-GLUCOSE METER 84 mg/dL 70-110 : TESTED A T [facility] 6720 (BEAKER) (test code = [place], 1538) [address]: Cassandra Developer/Techni federico ID = [id number] for SEMI EN, HANG CBC (HEMOGRAM ONLY)2023-03-22 [...] 0-0 (BEAKER) (test code = 413) POCT-GLUCOSE [id number] 23:51:48 Test Item Value Reference Range Interpretation Comments POC-GLUCOSE METER 127 mg/dL 70-110 H : TESTED A T [facility] 6720 (BEAKER) (test code = [facility], 1538) 889[address]: Cassandra Developer/Techni federico ID = [id number] for SE HANG GELLER POCT-GLUCOSE [id number] 15:58:20 Test Item Value Reference Range Interpretation Comments POC-GLUCOSE METER 101 mg/dL 70-110 : TESTED A T [facility] 6720 (BEAKER) (test code = [facility], 1538) 604[address]: Cassandra Developer/Techni federico ID = [id number] for Al rahel, Sonali POCT-GLUCOSE [id number] 13:10:10 Test Item Value Reference Range Interpretation Comments POC-GLUCOSE METER 102 mg/dL 70-110 : TESTED A T [facility] 6720 (BEAKER) (test code = [facility], 1538) 40472: Cassandra Developer/Techni federico ID = [id number] for Al rahel, Sonali POCT-GLUCOSE [id number] 06:57:42 Test Item Value Reference Range Interpretation Comments POC-GLUCOSE METER 98 mg/dL 70-110 : TESTED A T [facility] 6720 (BEAKER) (test code = [facility], 1538) 639[address]: Cassandra Developer/Techni federico ID = [id number] for SEMI ENHANG [id number] 06:09:48 Test Item Value Reference Range Interpretation Comments MAGNESIUM (BEAKER) (test code = 1.9 mg/dL 1.6-2.6 627) Cassandra Developer ID - SARAH [id number] 06:09:48 Test Item Value Reference Range Interpretation Comments PHOSPHORUS (BEAKER) (test code = 4.2 mg/dL 2.3-4.7 604) Cassandra Developer ID - SARAH WBASIC METABOLIC [id number] 06:09:47 Test Item Value Reference Range Interpretation [...] not appl icable for dialysis patien ts Cassandra Developer ID - SARAH [facility] (HEMOGRAM ONLY)2023-03-21 05:41:00 Test Item Value Reference [...] 0-0 (BEAKER) (test code = 413) POCT-GLUCOSE [id number] 02:33:24 Test Item Value Reference Range Interpretation Comments POC-GLUCOSE METER 80 mg/dL 70-110 : TESTED A T [facility] 6720 (BEAKER) (test code = [facility], 1538) 11872: Cassandra Developer/Techni federico ID = [id number] for Sue Brito POCT-GLUCOSE [id number] 18:37:31 Test Item Value Reference Range Interpretation Comments POC-GLUCOSE METER 84 mg/dL 70-110 : TESTED A T [facility] 6720 (BEAKER) (test code = [facility], 1538) 07810: Cassandra Developer/Techni federico ID = [id number] for Power macias Angela POCT-GLUCOSE [id number] 13:00:04 Test Item Value Reference Range Interpretation Comments POC-GLUCOSE METER 91 mg/dL 70-110 : TESTED A T [facility] 6720 (BEAKER) (test code = [facility], 1538) 686[address]: Cassandra Developer/Techni federico ID = [id number] for Power macias, Angela [id number] 06:24:55 Test Item Value Reference Range Interpretation Comments PHOSPHORUS (BEAKER) (test code = 3.2 mg/dL 2.3-4.7 604) Cassandra Developer ID - EOOBASIC METABOLIC [id number] 06:24:54 Test Item Value Reference Range Interpretation [...] not appl icable for dialysis patien ts Cassandra Developer ID - [id number] 06:24:54 Test Item Value Reference Range Interpretation Comments MAGNESIUM (BEAKER) (test code = 1.9 mg/dL 1.6-2.6 627) Cassandra Developer ID - EOOPOCT-GLUCOSE [id number] 05:44:23 Test Item Value Reference Range Interpretation Comments POC-GLUCOSE METER 73 mg/dL 70-110 : TESTED A T [facility] 6720 (BEAKER) (test code = [facility], 1538) 893[address]: Cassandra Developer/Techni federico ID = [id number] for Ramiro Pitts CBC (HEMOGRAM ONLY)2023-03-20 05:41:41 [...] 0-0 (BEAKER) (test code = 413) POCT-GLUCOSE [id number] 01:11:53 Test Item Value Reference Range Interpretation Comments POC-GLUCOSE METER 99 mg/dL 70-110 : TESTED A T [facility] 6720 (BEAKER) (test code = [facility], 1538) 04768: Cassandra Developer/Techni federico ID = [id number] for Ramiro Pitts POCT-GLUCOSE [id number] 18:05:19 Test Item Value Reference Range Interpretation Comments POC-GLUCOSE METER 141 mg/dL 70-110 H : TESTED A T [facility] 6720 (BEAKER) (test code = [facility], 1538) 607[address]: Cassandra Developer/Techni federico ID = [id number] for Ok makenna, Avery POCT-GLUCOSE [id number] 05:30:38 Test Item Value Reference Range Interpretation Comments POC-GLUCOSE METER 139 mg/dL 70-110 H : TESTED A T [facility] 6720 (BEAKER) (test code = [facility], 1538) 46724: Cassandra Developer/Techni federico ID = [id number] for Ad ams, Kimetra [id number] 02:57:20 Test Item Value Reference Range Interpretation Comments MAGNESIUM (BEAKER) (test code = 1.9 mg/dL 1.6-2.6 627) [id number] 02:57:20 Test Item Value Reference Range Interpretation Comments PHOSPHORUS (BEAKER) (test code = 3.7 mg/dL 2.3-4.7 604) BASIC METABOLIC [id number] 02:57:19 Test Item Value Reference Range Interpretation [...] 0-0 (BEAKER) (test code = 413) POCT-GLUCOSE [id number] 23:35:47 Test Item Value Reference Range Interpretation Comments POC-GLUCOSE METER 146 mg/dL 70-110 H : TESTED A T [facility] 6720 (BEAKER) (test code = [facility], 1538) 90024: Cassandra Developer/Techni federico ID = [id number] for Ad ams, Paytonetra POCT-GLUCOSE [id number] 13:10:55 Test Item Value Reference Range Interpretation Comments POC-GLUCOSE METER 98 mg/dL 70-110 : TESTED A T [facility] 6720 (BEAKER) (test code = [facility], 1538) 939[address]: Cassandra Developer/Techni federico ID = [id number] for NIST OR, TIFFANY [id number] 02:07:47 Test Item Value Reference Range Interpretation Comments PHOSPHORUS (BEAKER) (test code = 3.7 mg/dL 2.3-4.7 604) Cassandra Developer ID - [id number] 02:07:46 Test Item Value Reference Range Interpretation Comments MAGNESIUM (BEAKER) (test code = 1.8 mg/dL 1.6-2.6 627) Cassandra Developer ID - MARCOBASIC METABOLIC [id number] 02:07:46 Test Item Value Reference Range Interpretation [...] not appl icable for dialysis patien ts Cassandra Developer ID - MARCOCBC (HEMOGRAM ONLY)2023-03-18 01:43:23 Test [...] 0-0 (BEAKER) (test code = 413) POCT-GLUCOSE [id number] 06:11:57 Test Item Value Reference Range Interpretation Comments POC-GLUCOSE METER 116 mg/dL 70-110 H : TESTED A T [facility] 6720 (BEAKER) (test code = [place], 1538) [address]: Cassandra Developer/Techni federico ID = [id number] for IB ADAM VARGAS BASIC METABOLIC [id number] 04:24:08 Test Item Value Reference Range Interpretation [...] not appl icable for dialysis patien ts Cassandra Developer ID - [id number] 04:24:08 Test Item Value Reference Range Interpretation Comments MAGNESIUM (BEAKER) (test code = 3.9 mg/dL 1.6-2.6 H 627) Cassandra Developer ID - [id number] 04:24:08 Test Item Value Reference Range Interpretation Comments PHOSPHORUS (BEAKER) (test code = 3.1 mg/dL 2.3-4.7 604) Cassandra Developer ID - ADMINCBC (HEMOGRAM ONLY)2023-03-17 03:52:15 Test [...] 0-0 (BEAKER) (test code = 413) POCT-GLUCOSE [id number] 00:05:32 Test Item Value Reference Range Interpretation Comments POC-GLUCOSE METER 125 mg/dL 70-110 H : TESTED A [facility] 6720 ([facility]) (test code = [facility], 1537) 13355: Cassandra Developer/Techni federico ID = [id number] for IB DENA VARGASIA POCT-GLUCOSE [id number] 18:44:19 Test Item Value Reference Range Interpretation Comments POC-GLUCOSE METER 125 mg/dL 70-110 H : Notified RN/MD: ([facility]) (test code = TESTED AT [place] [address] 1537) [facility], [address]: Cassandra Developer/Techni federico ID = [id number] for Senia Villatoro POCT-GLUCOSE [id number] 13:09:35 Test Item Value Reference Range Interpretation Comments POC-GLUCOSE METER 108 mg/dL 70-110 : TESTED A T [facility] 6720 (BEAKER) (test code = [place], 1538) [address]: Cassandra Developer/Techni federico ID = [id number] for Sh Senia worthington [id number] 05:44:01 Test Item Value Reference Range Interpretation Comments PHOSPHORUS (BEAKER) (test code = 3.4 mg/dL 2.3-4.7 604) Cassandra Developer ID - MMBASIC METABOLIC [id number] 05:44:00 Test Item Value Reference Range Interpretation [...] not appl icable for dialysis patien ts Cassandra Developer ID - [id number] 05:44:00 Test Item Value Reference Range Interpretation Comments MAGNESIUM (BEAKER) (test code = 2.6 mg/dL 1.6-2.6 627) Cassandra Developer ID - MMCBC (HEMOGRAM ONLY)2023-03-16 05:40:09 Test [...] 0-0 (BEAKER) (test code = 413) POCT-GLUCOSE [id number] 00:06:45 Test Item Value Reference Range Interpretation Comments POC-GLUCOSE METER 127 mg/dL 70-110 H : TESTED A T [facility] 6720 (BEAKER) (test code [facility], = 153) 635[address]: Cassandra Developer/Techni federico ID = [id number] for Balwinder Smith POCT-GLUCOSE [id number] 17:44:55 Test Item Value Reference Range Interpretation Comments POC-GLUCOSE METER 119 mg/dL 70-110 H : TESTED A T [facility] 6720 (BEAKER) (test code = [facility], 153) 6[address]: Cassandra Developer/Techni federico ID = [id number] for Senia Villatoro POCT-GLUCOSE [id number] 14:16:32 Test Item Value Reference Range Interpretation Comments POC-GLUCOSE METER 120 mg/dL 70-110 H : TESTED A T [facility] 6720 (BEAKER) (test code = [facility], 1538) [address]: Cassandra Developer/Techni federico ID = [id number] for Sh Senia worthington [id number] 05:50:48 Test Item Value Reference Range Interpretation Comments MAGNESIUM (BEAKER) (test code = 1.5 mg/dL 1.6-2.6 L 627) Cassandra Developer ID - SARAH [id number] 05:50:48 Test Item Value Reference Range Interpretation Comments PHOSPHORUS (BEAKER) (test code = 4.0 mg/dL 2.3-4.7 604) Cassandra Developer ID - SARAH WBASIC METABOLIC [id number] 05:50:47 Test Item Value Reference Range Interpretation [...] not appl icable for dialysis patien ts Cassandra Developer ID - SARAH WCBC (HEMOGRAM ONLY)2023-03-15 05:18:47 Test Item Value [...] code = 413) HGB/HCT (H&H) - STAT [id number] 16:32:34 Test Item Value Reference Range Interpretation Comments HEMOGLOBIN (BEAKER) (test code = 11.2 GM/DL 12.0-15.0 L 410) HEMATOCRIT (BEAKER) (test code = 33.0 % 36.0-45.0 L 411) BLOOD GAS, [id number] 16:32:34 Test Item Value Reference Range Interpretation [...] (BEAKER) (test code = 1819) 30.0 CALCIUM, [id number] 16:32:33 Test Item Value Reference Range Interpretation Comments CALCIUM IONIZED (BEAKER) (test 1.14 mmol/L 1.12-1.27 code = 698) PH, BLOOD (BEAKER) (test code = 7.42 1810) GLUCOSE-STAT [id number] 16:32:14 Test Item Value Reference Range Interpretation Comments GLUCOSE RANDOM (BEAKER) (test code 142 mg/dL 70-110 H = 652) BLOOD GAS, [id number] 13:13:17 Test Item Value Reference Range Interpretation [...] (BEAKER) (test code = 1819) 28.0 CALCIUM, [id number] 13:13:16 Test Item Value Reference Range Interpretation Comments CALCIUM IONIZED (BEAKER) (test 1.28 mmol/L 1.12-1.27 H code = 698) PH, BLOOD (BEAKER) (test code = 7.43 1810) POTASSIUM-STAT [id number] 13:12:06 Test Item Value Reference Range Interpretation Comments POTASSIUM (BEAKER) (test code = 4.3 meq/L 3.6-5.5 379) HGB/HCT (H&H) - STAT [id number] 13:12:06 Test Item Value Reference Range Interpretation Comments HEMOGLOBIN (BEAKER) (test code = 12.8 GM/DL 12.0-15.0 410) HEMATOCRIT (BEAKER) (test code = 38.0 % 36.0-45.0 411) GLUCOSE-STAT [id number] 13:12:05 Test Item Value Reference Range Interpretation Comments GLUCOSE RANDOM (BEAKER) (test code 119 mg/dL 70-110 H = 652) SODIUM NA-STAT [id number] 13:12:05 Test Item Value Reference Range Interpretation Comments SODIUM (BEAKER) (test code = 381) 135 meq/L 136-145 L TISSUE [id number] 12:28:43Surgical Pathology Report Case: [id number] Authorizing Provider: Susanna Wick MD Collected: 03/03/2023 04:51 PM Ordering Location: [facility] PERIOPERATIVE Received: 03/06/2023 10:23 AM SERVICES Pathologist: Nick Banks MD Specimen: Tongue, RIGHT ANTERIOR TONSILAR PILLAR A. RIGHT ANTERIOR TONSILLAR PILLAR, BIOPSY - LYMPHOID TISSUE, NEGATIVE FOR CARCINOMA. Signing Pathologist Direct Phone Line: [phone] signed by Nick Banks MD on 03/14/2023 at 12:28 PMImmunostains for AE1/AE3 and p40 are negative.18408, 28493, 82611Qkpppr cancerA. TongueReceived fresh labeled with the patient's [...] evaluated Immunohistochemistry technical testing was performed at [facility], Pathology Laboratory where it was developed and its performance characteristics were determined. It has not been cleared or approved by the U.S. Food and Drug Administration. The FDA has determined that such albaro arance or approval is not necessary. The test is used for clinical purposes. It should not be regarded as investigational or for research. This laboratory is certified under the Clinical Laboratory Improvement Amendments of 1988 (CLIA-88) as qualified to perform high complexity clinical laboratory testing.SODIUM NA- STAT [id number] 08:29:01 Test Item Value Reference Range Interpretation Comments SODIUM (BEAKER) (test code = 381) 134 meq/L 136-145 L CALCIUM, [id number] 08:29:00 Test Item Value Reference Range Interpretation Comments CALCIUM IONIZED (BEAKER) (test 1.10 mmol/L 1.12-1.27 L code = 698) PH, BLOOD (BEAKER) (test code = 7.45 1810) BLOOD GAS, [id number] 08:29:00 Test Item Value Reference Range Interpretation [...] (BEAKER) (test code = 1819) 54.0 POTASSIUM-STAT [id number] 08:27:11 Test Item Value Reference Range Interpretation Comments POTASSIUM (BEAKER) (test code = 4.4 meq/L 3.6-5.5 379) HGB/HCT (H&H) - STAT [id number] 08:27:11 Test Item Value Reference Range Interpretation Comments HEMOGLOBIN (BEAKER) (test code = 12.3 GM/DL 12.0-15.0 410) HEMATOCRIT (BEAKER) (test code = 36.0 % 36.0-45.0 411) GLUCOSE-STAT [id number] 08:27:10 Test Item Value Reference Range Interpretation Comments GLUCOSE RANDOM (BEAKER) (test code = 92 mg/dL 70-110 652) SARS-COV2/RT-PCR ([facility])2023-03-14 07:10:29 Test Item Value Reference Range Interpretation Comments SARS-COV2/RT-PCR Negative Negative The SARS-Co V-2 target (test code = nucleic acids a re not 4337898) detected in thi s specimen. Negative result [...] revoked sooner. Fact Sheet for Healthcare Providers: https://www.SeatSwapr.VCharge m/Documents/Xpert%20Xpress%20SARS%20CoV-2/Fact%20Sheets/3023802%63GBNA-TRN-1%20 HEALTHCARE%20PROVIDERS%20FACT%20SHEET.pdf Fact Sheet for Healthcare Patients: https://www.Skinkers/Documents/Xpert%20Xp ress%20SARS%20CoV-2/Fact%20Sheets/3023801%15WWYN-HWH-6%20PATIENT%20FACT%20SHEET .evtSRKRZNLLA9839-06-25 03:44:35 Test Item Value Reference Range Interpretation Comments MAGNESIUM (BEAKER) (test code = 1.9 mg/dL 1.6-2.6 627) Cassandra Developer ID - SARAH [id number] 03:44:35 Test Item Value Reference Range Interpretation Comments PHOSPHORUS (BEAKER) (test code = 5.0 mg/dL 2.3-4.7 H 604) Cassandra Developer LARON SMITH WBASIC METABOLIC [id number] 03:44:34 Test Item Value Reference Range Interpretation [...] not appl icable for dialysis patien ts Cassandra Developer LARON SMITH WPT/[id number] 03:35:20 Test Item Value Reference Range Interpretation [...] for patients with mechanical heart valves. SCREEN, [id number] 19:22:08 Test Item Value Reference Range Interpretation Comments TEST URINE (BEAKER) (test Negative Negative code = 583) POC-Glucose [id number] 11:56:01 Test Item Value Reference Range Interpretation Comments POC-Glucose Meter (test 95 mg/dL 70-110 : TE STED AT [facility] code = 1538) [address] [facility], 770 30: Cassandra Developer/Techni federico ID = [id number] for Dewey Arora tone Lab Interpretation (test Normal code = 38709-3) [facility] [id number] 11:56:01 Test Item Value Reference Range Interpretation Comments POC-GLUCOSE METER 95 mg/dL 70-110 : [facility] (BEAKER[facility] (test code = [facility], 1538) 35188: Cassandra Developer/Techni federico ID = [id number] for Marsha Petty POCT-GLUCOSE [id number] 06:17:24 Test Item Value Reference Range Interpretation Comments POC-GLUCOSE METER 160 mg/dL 70-110 H : [facility] (BEAKER[facility] (test code = [facility], 1538) 23363: Cassandra Developer/Techni federico ID = [id number] for HANG ALMAZAN [id number] 04:44:38 Test Item Value Reference Range Interpretation Comments MAGNESIUM (BEAKER) (test code = 1.9 mg/dL 1.6-2.6 627) Cassandra Developer ID - [id number] 04:44:38 Test Item Value Reference Range Interpretation Comments PHOSPHORUS (BEAKER) (test code = 5.3 mg/dL 2.3-4.7 H 604) Cassandra Developer ID - EOOBASIC METABOLIC [id number] 04:44:37 Test Item Value Reference Range Interpretation [...] not appl icable for dialysis patien ts Cassandra Developer ID - EOOPOCT-GLUCOSE [id number] 00:21:01 Test Item Value Reference Range Interpretation Comments POC-GLUCOSE METER 108 mg/dL 70-110 : TESTED A T [facility] 6720 ([employer]) (test code = [facility], 153) 65173: Cassandra Developer/Techni federico ID = [id number] for HANG ALMAZAN POCT-GLUCOSE [id number] 16:05:36 Test Item Value Reference Range Interpretation Comments POC-GLUCOSE METER 120 mg/dL 70-110 H : TESTED A T [facility] 6720 ([employer]) (test code = [facility], 1538) 97036: Cassandra Developer/Techni federico ID = [id number] for Al rahel Sonali POCT-GLUCOSE [id number] 12:33:49 Test Item Value Reference Range Interpretation Comments POC-GLUCOSE METER 87 mg/dL 70-110 : TESTED A T [facility] 6720 ([employer]) (test code = [facility], 1538) 10507: Cassandra Developer/Techni federico ID = [id number] for Roe n, Sonali POCT-GLUCOSE [id number] 06:25:50 Test Item Value Reference Range Interpretation Comments POC-GLUCOSE METER 108 mg/dL 70-110 : TESTED A T [facility] 6720 (BEAKER) (test code = [facility] [place], 1538) 8[address]: Cassandra Developer/Techni federico ID = [id number] for HANG ALMAZAN [id number] 04:51:06 Test Item Value Reference Range Interpretation Comments MAGNESIUM (BEAKER) (test code = 1.6 mg/dL 1.6-2.6 627) Cassandra Developer ID - MAXWELL [id number] 04:51:06 Test Item Value Reference Range Interpretation Comments PHOSPHORUS (BEAKER) (test code = 4.4 mg/dL 2.3-4.7 604) Cassandra Developer ID - MAXWELL BBASIC METABOLIC [id number] 04:51:05 Test Item Value Reference Range Interpretation [...] not appl icable for dialysis patien ts Cassandra Developer ID - MAXWELL BPOCT-GLUCOSE [id number] 00:05:50 Test Item Value Reference Range Interpretation Comments POC-GLUCOSE METER 118 mg/dL 70-110 H : TESTED A T [facility] 6720 (BEAKER) (test code = [facility], 1538) 94530: Cassandra Developer/Techni federico ID = [id number] for HANG ALMAZAN POCT-GLUCOSE [id number] 16:40:48 Test Item Value Reference Range Interpretation Comments POC-GLUCOSE METER 99 mg/dL 70-110 : TESTED A T [facility] 6720 (BEAKER) (test code = [facility], 1538) 58767: Cassandra Developer/Techni federico ID = [id number] for Rosaline Deleon POCT-GLUCOSE [id number] 12:40:11 Test Item Value Reference Range Interpretation Comments POC-GLUCOSE METER 122 mg/dL 70-110 H : TESTED A T [facility] 6720 (BEAKER) (test code = [facility], 1538) 54595: Cassandra Developer/Techni federico ID = [id number] for Sonali Walters POCT-GLUCOSE [id number] 06:26:58 Test Item Value Reference Range Interpretation Comments POC-GLUCOSE METER 93 mg/dL 70-110 : TESTED A T [facility] 6720 (BEAKER) (test code = [facility], 1538) 83444: Cassandra Developer/Techni federico ID = [id number] for HANG ZUNIGA [id number] 04:39:11 Test Item Value Reference Range Interpretation Comments MAGNESIUM (BEAKER) (test code = 1.7 mg/dL 1.6-2.6 627) Cassandra Developer ID - [id number] 04:39:11 Test Item Value Reference Range Interpretation Comments PHOSPHORUS (BEAKER) (test code = 4.6 mg/dL 2.3-4.7 604) Cassandra Developer ID - MARCOBASIC METABOLIC [id number] 04:39:10 Test Item Value Reference Range Interpretation [...] not appl icable for dialysis patien ts Cassandra Developer ID - MARCOBASIC METABOLIC [id number] 06:51:27 Test Item Value Reference Range Interpretation [...] not appl icable for dialysis patien ts Cassandra Developer ID - [id number] 06:51:27 Test Item Value Reference Range Interpretation Comments MAGNESIUM (BEAKER) (test code = 1.6 mg/dL 1.6-2.6 627) Cassandra Developer ID - [id number] 06:51:27 Test Item Value Reference Range Interpretation Comments PHOSPHORUS (BEAKER) (test code = 5.1 mg/dL 2.3-4.7 H 604) Cassandra Developer ID - MARCOPOC-Glucose [id number] 06:10:39 Test Item Value Reference Range Interpretation Comments POC-Glucose Meter (test 117 mg/dL 70-110 H : TE STED AT [facility] code = 1538) [address] [facility], 770 30: Cassandra Developer/Techni federico ID = [id number] for DARCI MONTEMAYOR Lab Interpretation (test Abnormal code = 15524-4) [facility] [id number] 06:10:39 Test Item Value Reference Range Interpretation Comments POC-GLUCOSE METER 117 mg/dL 70-110 H : [facility] (BEAKER[facility] (test code = [facility], 1538) 25964: Cassandra Developer/Techni federico ID = [id number] for TH OMPSON, BELKIS POCT-GLUCOSE [id number] 00:21:24 Test Item Value Reference Range Interpretation Comments POC-GLUCOSE METER 133 mg/dL 70-110 H : TESTED A T [facility] 6720 (BEAKER) (test code = [facility], 1538) 71769: Cassandra Developer/Techni federico ID = [id number] for TH OMPSON, BELKIS POCT-GLUCOSE [id number] 18:01:01 Test Item Value Reference Range Interpretation Comments POC-GLUCOSE METER 131 mg/dL 70-110 H : TESTED A T [facility] 6720 (BEAKER) (test code = [facility], 1538) 10225: Cassandra Developer/Techni federico ID = [id number] for Sa Jass castanon POC-Glucose [id number] 11:46:52 Test Item Value Reference Range Interpretation Comments POC-Glucose Meter (test 86 mg/dL 70-110 : TE STED AT [facility] code = 1538) [address] [facility], 770 30: Cassandra Developer/Techni federico ID = [id number] for KalinMicha Lab Interpretation (test Normal code = 92797-6) [facility] [id number] 11:46:52 Test Item Value Reference Range Interpretation Comments POC-GLUCOSE METER 86 mg/dL 70-110 : TESTED A T [facility] 6720 (BEAKER) (test code = [facility], 1538) 54013: Cassandra Developer/Techni federico ID = [id number] for Sanc Jass mcknight POCT-GLUCOSE [id number] 06:32:46 Test Item Value Reference Range Interpretation Comments POC-GLUCOSE METER 110 mg/dL 70-110 : [facility] (BEAKER[facility] (test code = [facility], 153) 14421: Cassandra Developer/Techni federico ID = [id number] for HANG ALMAZAN BASIC METABOLIC [id number] 05:38:35 Test Item Value Reference Range Interpretation [...] not appl icable for dialysis patien ts Cassandra Developer ID - [id number] 05:38:35 Test Item Value Reference Range Interpretation Comments MAGNESIUM (BEAKER) (test code = 1.8 mg/dL 1.6-2.6 627) Cassandra Developer ID - [id number] 05:38:35 Test Item Value Reference Range Interpretation Comments PHOSPHORUS (BEAKER) (test code = 3.4 mg/dL 2.3-4.7 604) Cassandra Developer ID - DBCBC W/PLT COUNT & AUTO [id number] 05:14:51 Test Item Value Reference Range Interpretation [...] PERCENT (BEAKER) (test code = 2801) POCT-GLUCOSE [id number] 23:49:04 Test Item Value Reference Range Interpretation Comments POC-GLUCOSE METER 97 mg/dL 70-110 : TESTED A T [facility] 6720 (Streamcore SystemAKER) (test code = [facility], 153) 14488: Cassandra Developer/Techni federico ID = [id number] for SEMI TAMIKO, HANG POCT-GLUCOSE [id number] 18:03:27 Test Item Value Reference Range Interpretation Comments POC-GLUCOSE METER 96 mg/dL 70-110 : TESTED A T [facility] 6720 (BEAKER) (test code = [facility], 153) 34216: Cassandra Developer/Techni federico ID = [id number] for BELKIS SAMPSON POCT-GLUCOSE [id number] 12:11:29 Test Item Value Reference Range Interpretation Comments POC-GLUCOSE METER 95 mg/dL 70-110 : TESTED A T [facility] 6720 (BEAKER) (test code = [facility], 1538) 58113: Cassandra Developer/Techni federico ID = [id number] for BELKIS SAMPSON POCT , [id number] 07:31:00 Test Item Value Reference Range Interpretation Comments Test Urine, POC (test Negative code = 2791941) Control line present?, POC (test Yes code = 7403118) Background clear?, POC (test code Yes = 9523941) UPT Cassette Lot #, POC (test code 017137 = 0062654) UPT Cassette Expiration Date, POC 03/19/2024 (test code = 2621359) [facility] , [id number] 07:31:00 Test Item Value Reference Range Interpretation Comments Test Urine, POC (test Negative code = 9068961) Control line present?, POC (test Yes code = 3320005) Background clear?, POC (test code Yes = 0693779) UPT Cassette Lot #, POC (test code 506336 = 8377992) UPT Cassette Expiration Date, POC 03/19/2024 (test code = 1876988) [facility] , [id number] 07:31:00 Test Item Value Reference Range Interpretation Comments Test Urine, POC (test Negative code = 1480398) Control line present?, POC (test Yes code = 9210830) Background clear?, POC (test code Yes = 0542092) UPT Cassette Lot #, POC (test code 820893 = 1027185) UPT Cassette Expiration Date, POC 03/19/2024 (test code = 4779763) [facility] , [id number] 07:31:00 Test Item Value Reference Range Interpretation Comments Test Urine, POC (test Negative code = 1146986) Control line present?, POC (test Yes code = 0650703) Background clear?, POC (test code Yes = 6875706) UPT Cassette Lot #, POC (test code 731825 = 2064618) UPT Cassette Expiration Date, POC 03/19/2024 (test code = 3056089) [facility]-Glucose [id number] 06:42:59 Test Item Value Reference Range Interpretation Comments POC-Glucose Meter (test 95 mg/dL 70-110 : TE STED AT [facility] code = 1538) [address] [place], 770 30: Cassandra Developer/Techni federico ID = [id number] for Shayy Olivarez Lab Interpretation (test Normal code = 53032-2) [facility] [id number] 06:42:59 Test Item Value Reference Range Interpretation Comments POC-GLUCOSE METER 95 mg/dL 70-110 : TESTED A T [facility] 6720 (BEAKER) (test code = [facility], 1538) 96632: Cassandra Developer/Techni federico ID = [id number] for Shayy Costello od [id number] 04:49:08 Test Item Value Reference Range Interpretation Comments PHOSPHORUS (BEAKER) (test code = 4.0 mg/dL 2.3-4.7 604) Cassandra Developer ID - ADMINBASIC METABOLIC [id number] 04:49:07 Test Item Value Reference Range Interpretation [...] not appl icable for dialysis patien ts Cassandra Developer ID - [id number] 04:49:07 Test Item Value Reference Range Interpretation Comments MAGNESIUM (BEAKER) (test code = 1.9 mg/dL 1.6-2.6 627) Cassandra Developer ID - ADMINCBC W/PLT COUNT & AUTO [id number] 04:23:38 Test Item Value Reference Range Interpretation [...] PERCENT (BEAKER) (test code = 2801) POCT-GLUCOSE [id number] 23:51:35 Test Item Value Reference Range Interpretation Comments POC-GLUCOSE METER 115 mg/dL 70-110 H : TESTED A T [facility] 6720 (BEAKER) (test code = [facility], 153) 88793: Cassandra Developer/Techni federico ID = [id number] for Shayy Bahena POCT-GLUCOSE [id number] 18:02:27 Test Item Value Reference Range Interpretation Comments POC-GLUCOSE METER 97 mg/dL 70-110 : TESTED A T [facility] 6720 (BEAKER) (test code = [facility], 153) 32859: Cassandra Developer/Techni federico ID = [id number] for JENNI PSON, BELKIS POCT-GLUCOSE [id number] 12:21:50 Test Item Value Reference Range Interpretation Comments POC-GLUCOSE METER 82 mg/dL 70-110 : TESTED A T [facility] 6720 (BEAKER) (test code = [facility], 153) 16424: Cassandra Developer/Techni federico ID = [id number] for JENNI PSON, BELKIS POCT-GLUCOSE [id number] 06:39:31 Test Item Value Reference Range Interpretation Comments POC-GLUCOSE METER 82 mg/dL 70-110 : TESTED A T [facility] 6720 (BEAKER) (test code = [facility], 153) 73604: Cassandra Developer/Techni federico ID = [id number] for KathleentheoShayy thorpe od [id number] 05:41:53 Test Item Value Reference Range Interpretation Comments MAGNESIUM (BEAKER) (test code = 1.9 mg/dL 1.6-2.6 627) Cassandra Developer ID - [id number] 05:41:53 Test Item Value Reference Range Interpretation Comments PHOSPHORUS (BEAKER) (test code = 4.3 mg/dL 2.3-4.7 604) Cassandra Developer ID - ADMINBASIC METABOLIC [id number] 05:41:52 Test Item Value Reference Range Interpretation [...] not appl icable for dialysis patien ts Cassandra Developer ID - ADMINCBC W/PLT COUNT & AUTO [id number] 05:18:36 Test Item Value Reference Range Interpretation [...] PERCENT (BEAKER) (test code = 2801) POCT-GLUCOSE [id number] 00:09:35 Test Item Value Reference Range Interpretation Comments POC-GLUCOSE METER 160 mg/dL 70-110 H : TESTED A T [facility] 6720 (BEAKER) (test code = [facility], 1538) 99597: Cassandra Developer/Techni federico ID = [id number] for Shayy Bahena POCT-GLUCOSE [id number] 17:21:07 Test Item Value Reference Range Interpretation Comments POC-GLUCOSE METER 75 mg/dL 70-110 : TESTED A T [facility] 6720 (BEAKER) (test code = [facility], 1538) 08727: Cassandra Developer/Techni federico ID = [id number] for Sonali Harrison Screen, [id number] 15:22:58 Test Item Value Reference Range Interpretation Comments Preg Test, Ur (test code = 2112-1) Negative Negative Lab Interpretation (test code = Normal 45862-6) [facility], [id number] 15:22:58 Test Item Value Reference Range Interpretation Comments Preg Test, Ur (test code = 2112-1) Negative Negative Lab Interpretation (test code = Normal 28988-0) [facility], [id number] 15:22:58 Test Item Value Reference Range Interpretation Comments Preg Test, Ur (test code = 2112-1) Negative Negative Lab Interpretation (test code = Normal 74747-7) [facility], [id number] 15:22:58 Test Item Value Reference Range Interpretation Comments Preg Test, Ur (test code = 2112-1) Negative Negative Lab Interpretation (test code = Normal 45086-8) [facility] CenterPREGNANCY SCREEN, [id number] 15:22:58 Test Item Value Reference Range Interpretation Comments TEST URINE (BEAKER) (test Negative Negative code = 583) POCT-GLUCOSE [id number] 17:25:51 Test Item Value Reference Range Interpretation Comments POC-GLUCOSE METER 87 mg/dL 70-110 : TESTED A T [facility] 6720 (BEAKER) (test code = [facility], 1538) 61159: Cassandra Developer/Techni federico ID = [id number] for MARK CEBALLOS POCT-GLUCOSE [id number] 12:49:55 Test Item Value Reference Range Interpretation Comments POC-GLUCOSE METER 93 mg/dL 70-110 : TESTED A T [facility] 6720 (BEAKER) (test code = [facility], 1538) 23753: Cassandra Developer/Techni federico ID = [id number] for MARK CEBALLOS COMPREHENSIVE METABOLIC [id number] 05:47:37 Test Item Value Reference Range Interpretation [...] not appl icable for dialysis patien ts Cassandra Developer ID - [id number] 05:41:52 Test Item Value Reference Range Interpretation Comments PREALBUMIN (BEAKER) (test code = 26 mg/dL 14-45 586) Cassandra Developer ID - [id number] 05:34:03 Test Item Value Reference Range Interpretation Comments PARTIAL THROMBOPLASTIN TIME 35.5 seconds 22.5-36.0 (BEAKER) (test code = 760) PROTHROMBIN TIME/[id number] 05:33:23 Test Item Value Reference Range Interpretation Comments PROTIME (BEAKER) (test code = 13.1 seconds 11.9-14.2 759) INR (BEAKER) (test code = 370) 1.05 <=5.90 RECOMMENDED COUMADIN/WARFARIN INR THERAPY RANGESSTANDARD DOSE: 2.0 - 3.0 Includes: PROPHYLAXIS for venous thrombosis, systemic embolization; TREATMENT for venous thrombosis and/or pulmonary embolus.HIGH RISK: Target INR is 2.5-3.5 for patients with mechanical heart valves.CBC W/PLT COUNT & AUTO [id number] 05:25:30 Test Item Value Reference Range Interpretation [...] code = 2801) HIV-1 ANTIGEN WITH HIV-1/2 [id number] 13:53:09 Test Item Value Reference Range Interpretation Comments HIV-1 ANTIGEN WITH HIV 1\\T\\2 Nonreactive Nonreactive ANTIBODY (2) (BEAKER) (test code = 2586) Cassandra Developer ID - ADMINHEPATITIS C [id number] 13:53:08 Test Item Value Reference Range Interpretation Comments HEPATITIS C ANTIBODY (BEAKER) Nonreactive Nonreactive (test code = 367) Cassandra Developer ID - [id number] 13:38:31 Test Item Value Reference Range Interpretation Comments PREALBUMIN (BEAKER) (test code = 30 mg/dL 1445 586) Cassandra Developer ID - ADMINXR ABDOMEN/KUB 1 VIEW [id number] 19:34:44 [facility] : 1980 Sex: FTECHNIQUE: XR ABDOMEN/KUB 1 VIEW PORTABLEINDICATION: DHT PLacement.COMPARISON: None.FINDINGS:Feeding tube tip projected over the gastric antrum. Nonobstructive bowelgas pattern. Lower pelvis is incompletely included on this examination.Supine radiographs are insensitive for detection of free intraperito nealair.IMPRESSION:Feeding tube tip projected over the gastric antrum.Electronically Signed By: Jarvis Welsh03/03/2023 19:36 CDTWorkstation Name: [id number] CHEST WITH IV [id number] 17:28:20 [facility] : 1980 Sex: [...] Signed By: Jude Calero02/25/2023 17:30 CDTWorkstation Name: [id number] SOFT TISSUE WITH IV [id number] 14:07:41 [facility] 1980 Sex: FExamination:CT [...] Signed By: Natacha Mondragon02/23/2023 14:09 CDTWorkstation Name: [id number], CHEST, WITH [id number] 07:29:00 Unlisted Reason for Exam - Click Yes and Enter Reason Below->No [facility] : 1980 Sex: FFINAL [...] Nicholas MDReport Verified Da te/Time: 01/20/2023 07:29:13 [id number] 05:13:48 Test Item Value Reference Range Interpretation Comments MAGNESIUM (BEAKER) (test code = 1.7 mg/dL 1.6-2.6 627) Cassandra Developer ID - [id number] 05:13:48 Test Item Value Reference Range Interpretation Comments PHOSPHORUS (BEAKER) (test code = 4.1 mg/dL 2.3-4.7 604) Cassandra Developer ID - MMBASIC METABOLIC [id number] 05:13:47 Test Item Value Reference Range Interpretation [...] not appl icable for dialysis patien ts Cassandra Developer ID - MMBASIC METABOLIC [id number] 06:42:56 Test Item Value Reference Range Interpretation [...] not appl icable for dialysis patien ts Cassandra Developer ID - [id number] 06:42:56 Test Item Value Reference Range Interpretation Comments MAGNESIUM (BEAKER) (test code = 1.8 mg/dL 1.6-2.6 627) Cassandra Developer ID - [id number] 06:42:56 Test Item Value Reference Range Interpretation Comments PHOSPHORUS (BEAKER) (test code = 4.0 mg/dL 2.3-4.7 604) Cassandra Developer ID - ADMINVITAMIN [id number] 06:39:31 Test Item Value Reference Range Interpretation Comments VITAMIN B12 (BEAKER) (test code = 341 pg/mL 213-816 774) Cassandra Developer ID - ADMINIRON, TIBC, % SAT. (WITHOUT FERRITIN)2023-01-19 06:11:34 Test Item Value Reference Range Interpretation Comments IRON (BEAKER) (test code = 547) 22.0 ug/dL 40.0-160.0 L TOTAL IRON BINDING CAPACITY 394 ug/dL 250-450 (BEAKER) (test code = 769) IRON % SATURATION (2) (BEAKER) 6 % 20-55 L (test code = 2590) Cassandra Developer ID - [id number] 06:40:41 Test Item Value Reference Range Interpretation Comments MAGNESIUM (BEAKER) 1.5 mg/dL 1.6-2.6 L Specimen slightly (test code = 627) hemolyzed Cassandra Developer ID - SARAH [id number] 06:40:41 Test Item Value Reference Range Interpretation Comments PHOSPHORUS (BEAKER) 3.6 mg/dL 2.3-4.7 Specimen slightly (test code = 604) hemolyzed Cassandra Developer ID - SARAH WCOMPREHENSIVE METABOLIC [id number] 06:40:41 Test Item Value Reference Range Interpretation [...] not appl icable for dialysis patien ts Cassandra Developer ID - SARAH WCBC W/PLT COUNT & AUTO [id number] 05:43:39 Test Item Value Reference Range Interpretation [...] PERCENT (BEAKER) (test code = 2801) Ethanol [id number] 02:25:00 Test Item Value Reference Range Interpretation Comments Ethanol (test code 176 mg/dL The pharm acological = ETOH) response to blo od alcohol levels mayvary from individual to i ndividual. The fatal ginan ntrationhas been reported t o be >400mg/dL. Complete Blood Count Auto [id number] 22:56:00 Test Item Value Reference Range Interpretation [...] code = NRBCP) 0 % Comprehensive Metabolic [id number] 22:56:00 Test Item Value Reference Range Interpretation [...] 106 U/L 46-116 N = ALP) Ethanol [id number] 22:56:00 Test Item Value Reference Range Interpretation Comments Ethanol (test code 242 mg/dL The pharm acological = ETOH) response to blo od alcohol levels mayvary from individual to i ndividual. The fatal ginna ntrationhas been reported t o be >400mg/dL. Manual Differential, [id number] 22:56:00 Test Item Value Reference Range Interpretation [...] les (Age >41) 1. 8-10.1 mIU/mL Drug Screen,[id number] 22:52:00 Test Item Value Reference Range Interpretation [...] Negative code = UPROP) Coronavirus PCR, COVID19 [id number] 22:52:00 Test Item Value Reference Range Interpretation Comments Coronavirus PCR, For use under Emergency COVID19 Rapid (test Use Authorization (EUA) code = SARSCOV2) only. Coronavirus PCR, Reference Range: COVID19 Rapid (test Negative code = NNDOKBN07.1) SARS-CoV-2 PCR Result: Negative by RT-PCR (test code = SARS-CoV-2 PCR Result:) COVID-19 Status: AsymptomaticUA, Urinalysis Rflx Cult/[id number] 22:52:00 Test Item Value Reference Range Interpretation Comments Color,Urine (test code = UCOL) Yellow Yellow Clarity,Urine (test code = Clear Clear UCLAR) Ph, Urine (test code = UPH) 6.0 5.0-9.0 N Specific [place],Urine (test 1.020 1.005-1.030 N code = USG) [...] A code = ULEU) UF REFLEXUF REFLEXUrine [id number] 22:52:00 Test Item Value Reference Range Interpretation Comments RBC,Urine (test code = URBCUF) 0-2 /HPF 0-2 WBC,Urine (test code = UWBCUF) 0-5 /HPF 0-5 Epithelial Cell,Urine (test 0-5 /HPF 0-5 code = UECUF) Casts,Urine (test code = 0-5 /LPF None Seen UCASTUF) Bacteria,Urine (test code = None Seen /hpf None Seen UBACTUF) UF REFLEXUF REFLEX
[2023-04-18] MEDS ORDERED: ONDANSETRON 4 MG/2 ML VIAL ONE (01:52)
[2023-04-18] MEDS ORDERED: KETOROLAC 30 MG/ML INJ ONE (01:53)
--- NOTE | 2023-04-18 02:30 | EDPHYS ---
Physician Documentation [facility] Name: Brii Garcia Age: 43 yrs Sex: Female : 1980 Arrival Date: 04/18/2023 Time: 01:06 Bed 2 Private MD: ED Physician Sal Gentile HPI: 04/18 01:09 This 43 yrs old Black Female presents to ER via Unassigned with complaints of sp4 Tracheostomy clogged. 01:09 Patient is 43-year-old female history of partial tongue resection secondary to head and sp4 neck cancer, history of indwelling tracheostomy size 8 uncuffed. Presents with tracheostomy clogged. Emesis reported patient had a few alcoholic beverages also continues to smoke cigarettes. Tracheostomy clogged was alleviated at home by the EMS personnel. Patient's family requested patient was brought here for evaluation. Patient does not have tracheostomy inner cannula at this time. . 01:13 Patient was here for the same basically complaint on 04/12/2023. At that time she sp4 complained of persistent neck pain and CT angiography neck was done. CT has revealed -CT soft tissue neck with IV contrast revealed postsurgical changes of glossectomy and myocutaneous flap reconstruction as well as neck dissection. No significant changes from prior exam. Marginally enhancing hypoattenuating lesion. Small fluid collection on the left of midline smaller than prior exam. Left tonsillar tissue slightly more prominent. Has symmetric subcutaneous swelling fat stranding soft tissues over the left mandible angle and body. Obliteration of the oropharyngeal supralaryngeal airway could be relating to postoperative changes. No evidence of new enhancing mucosal mass. True vocal cord is unremarkable. No progressive adenopathy. Small lower cervical residual lymph nodes are stable. Tracheostomy in place. Scattered groundglass opacities throughout the upper lungs may be slightly progressive since prior exam favoring infectious or inflammatory process. Impression stable postsurgical changes, marginally enhancing small hypoattenuating presumed collection left of midline just cranial to the body of hyoid bone slightly smaller since prior exam favored to be postoperative in nature. Stable asymmetric soft tissue swelling of long mandibular angle and body may represent ongoing cellulitis. No suspicious adenopathy. . Historical: - Allergies: 01:18 No Known Allergies; jb4 - PMHx: 01:18 Anxiety; Squamous cell carcinoma of tongue; jb4 - PSHx: 01:18 Carcinoma removed; G tube placement; right leg; total tongue removal; tracheostomy; jb4 - Immunization history:: Adult Immunizations up to date. - Social history:: Smoking status: Patient reports the use of cigarette tobacco products, Patient uses alcohol. - Family history:: not pertinent. ROS: 02:24 Constitutional: Negative for fever, chills, and weight loss, positive tracheostomy sp4 occlusion, positive alcohol intoxication 02:24 All other systems are negative. Exam: 02:24 Constitutional: This is a well developed, well nourished patient who is awake, alert, sp4 and in no acute distress. Appears mildly intoxicated, tracheostomy in place, saturation is 100%. Head/Face: Normocephalic, atraumatic. There is left-sided facial mandibular swelling similar to prior. Postoperative scarring submandibular location Eyes: Pupils equal round and reactive to light, extra-ocular motions intact. Lids and lashes normal. Conjunctiva and sclera are not injected. Cornea within normal limits. Periorbital areas with no swelling, redness, or edema. ENT: Nares patent. No nasal discharge, no septal abnormalities noted. Tympanic membranes are normal and external auditory canals are clear. Oral cavity reveals postoperative tongue dissection with significant scarring, similar to prior exam Neck: Trachea midline, no thyromegaly or masses palpated, and no cervical lymphadenopathy. Supple, full range of motion without nuchal rigidity, or vertebral point tenderness. There is tracheostomy in place, tracheostomy appears patent there is no inner cannula Chest/axilla: Normal chest wall appearance and motion. Nontender with no deformity. No lesions are appreciated. Cardiovascular: Regular rate and rhythm with a normal S1 and S2. No gallops, murmurs, or rubs. Normal PMI, no JVD. No pulse deficits. Respiratory: Lungs have equal breath sounds bilaterally, clear to auscultation and percussion. No rales, rhonchi or wheezes noted. No increased work of breathing, no retractions or nasal flaring. Abdomen/GI: Soft, non-tender, with normal bowel sounds. No distension or tympany. No guarding or rebound. No evidence of tenderness throughout. Back: No spinal tenderness. No costovertebral tenderness. Skin: Warm, dry with normal turgor. Normal color with no rashes, no lesions, and no evidence of cellulitis. MS/ Extremity: Pulses equal, no cyanosis. Neurovascular intact. Full, normal range of motion. Neuro: Awake and alert, GCS 15, oriented to person, place, time, and situation. Cranial nerves II-XII grossly intact. Motor strength 5/5 in all extremities. Sensory grossly intact. Psych: Awake, alert, with orientation to person, place and time. Behavior, mood, and affect are within normal limits Vital Signs: 01:08 BP 103 / 79; Pulse 90; Resp 16; Temp 98.1(TE); Pulse Ox 100% on R/A; jb4 02:24 BP 99 / 69; kl 02:52 Pulse 89; Resp 16; Pulse Ox 98% on R/A; jb4 MDM: 02:24 Differential Diagnosis Tracheostomy occlusion, intoxication, persistent tobacco use sp4 disorder. Data reviewed: vital signs, nurses notes, EMS record, old medical records. Consideration of Admission/Observation Escalation of care including admission/observation considered. ED course: field technical assistant has cleaned out tracheostomy in ER. Patient appears stable, oxygenation 100% on room air, blood pressure stable 99/69. Patient advised against alcohol use and advised against tobacco use. Also recommended [facility] visit with [facility] for consultation on tracheostomy management.. 02:29 Patient medically screened. sp4 Administered Medications: 01:20 Not Given (Other Intervention Used): Ondansetron PO 4 mg PO once jb4 01:51 Drug: Ketorolac IM 60 mg Route: IM; Site: left gluteus; jb4 01:51 Drug: Zofran IM 4 mg Route: IM; Site: right gluteus; jb4 Disposition Summary: 04/18/23 02:29 Discharge Ordered Location: Home sp4 Problem: new sp4 Symptoms: have improved sp4 Condition: Stable sp4 Diagnosis - Encounter for attention to tracheostomy sp4 - Tracheostomy occlusion, tracheostomy complication sp4 Followup: sp4 - With: Private Physician - When: 7 - 10 days - Reason: Recheck today's complaints Discharge Instructions: - Discharge Summary Sheet sp4 - How to Clean a Tracheostomy Tube, Adult sp4 Forms: - Patient Portal Instructions sp4 Signatures: Jaciel Lu RN RN jb4 Sal Gentile MD MD sp4
--- NOTE | 2023-04-18 02:30 | ER ---
Nurse's Notes [facility] Name: Brii Garcia Age: 43 yrs Sex: Female : 1980 Arrival Date: 04/18/2023 Time: 01:06 Bed 2 Private MD: Diagnosis: Encounter for attention to tracheostomy;Tracheostomy occlusion, tracheostomy complication Presentation: 04/18 01:08 Chief complaint: EMS states: Pt was reportedly drinking and smoking. Then her trach jb4 became clogged. Upon EMS arrival pt was suctioned her. Pt no satting 100% on RA. Coronavirus screen: At this time, the client does not indicate any symptoms associated with coronavirus-19. Ebola Screen: No symptoms or risks identified at this time. Initial Sepsis Screen: Does the patient meet any 2 criteria? No. Patient's initial sepsis screen is negative. Does the patient have a suspected source of infection? No. Patient's initial sepsis screen is negative. Risk Assessment: Do you want to hurt yourself or someone else? Patient reports no desire to harm self or others. Onset of symptoms was April 18, 2023. Transition of care: patient was not received from another setting of care. 01:08 Method Of Arrival: EMS: [facility] jb4 01:08 Acuity: ANG 3 jb4 Historical: - Allergies: 01:18 No Known Allergies; jb4 - PMHx: 01:18 Anxiety; Squamous cell carcinoma of tongue; jb4 - PSHx: 01:18 Carcinoma removed; G tube placement; right leg; total tongue removal; tracheostomy; jb4 - Immunization history:: Adult Immunizations up to date. - Social history:: Smoking status: Patient reports the use of cigarette tobacco products, Patient uses alcohol. - Family history:: not pertinent. Screenin:52 [facility] ED Fall Risk Assessment (Adult) History of falling in the last 3 months, jb4 including since admission No falls in past 3 months (0 pts) Confusion or Disorientation No (0 pts) Score/Fall Risk Level 0 - 2 = Low Risk. Abuse screen: Denies threats or abuse. Nutritional screening: No deficits noted. Tuberculosis screening: No symptoms or risk factors identified. Assessment: 01:19 General: Appears in no apparent distress. comfortable, Behavior is calm, cooperative, jb4 appropriate for age. Pain: Denies pain. Neuro: Level of Consciousness is awake, alert, obeys commands, Oriented to person, place, time, situation. Cardiovascular: Patient's skin is warm and dry. Respiratory: Airway is patent Respiratory effort is even, unlabored, Respiratory pattern is regular, symmetrical. GI: No signs and/or symptoms were reported involving the gastrointestinal system. : No signs and/or symptoms were reported regarding the genitourinary system. EENT: No signs and/or symptoms were reported regarding the EENT system. Derm: Skin is intact, Skin is pink, warm \T\ dry. Musculoskeletal: Circulation, motion, and sensation intact. Range of motion: intact in all extremities. 02:52 Reassessment: Patient appears in no apparent distress at this time. Patient and/or jb4 family updated on plan of care and expected duration. Pain level reassessed. Patient is alert, oriented x 3, equal unlabored respirations, skin warm/dry/pink. Vital Signs: 01:08 BP 103 / 79; Pulse 90; Resp 16; Temp 98.1(TE); Pulse Ox 100% on R/A; jb4 02:24 BP 99 / 69; kl 02:52 Pulse 89; Resp 16; Pulse Ox 98% on R/A; jb4 ED Course: 01:08 Patient arrived in ED. jb4 01:08 Sal Gentile MD is Attending Physician. sp4 01:18 Triage completed. jb4 01:18 Arm band placed on right wrist. jb4 02:52 Patient has correct armband on for positive identification. Bed in low position. Call jb4 light in reach. Side rails up X 1. 02:52 No provider procedures requiring assistance completed. Patient did not have IV access jb4 during this emergency room visit. Administered Medications: 01:20 Not Given (Other Intervention Used): Ondansetron PO 4 mg PO once jb4 01:51 Drug: Ketorolac IM 60 mg Route: IM; Site: left gluteus; jb4 01:51 Drug: Zofran IM 4 mg Route: IM; Site: right gluteus; jb4 Outcome: 02:29 Discharge ordered by . sp4 02:52 Discharged to home ambulatory, with family. jb4 02:52 Condition: stable 02:52 Discharge instructions given to patient, Instructed on discharge instructions, follow up and referral plans. Demonstrated understanding of instructions, follow-up care. 02:59 Patient left the ED. jb4 Signatures: Tonya Suero RN RN kl Bryson, James, RN RN jb4 Sal Gentile MD MD sp4
[2023-04-18 03:04] VITALS: TEMP 98.1
[2023-04-18 03:05] VITALS: BP 99/69
[2023-04-18 03:07] VITALS: O2SAT 98
== END 2023-04-18 02:59 | disposition home or self-care (01) ==
LOC: ER 01:06
DX: J95.03 Malfunction of tracheostomy stoma (principal); Z72.0 Tobacco use
CPT/HCPCS: 96372; 99284; J2405

== ENCOUNTER 2023-05-06 16:34 | Emergency (ER) | payer OTHER ==
--- OUTSIDE RECORDS SUMMARY | 2023-05-06 16:42 | XMS REPORT | Continuity of Care Document ---
:1980 Author Organization [facility] t Address [address] [place] [address] [place] [id number] Care Team Providers Name Role Phone SUSANNA WICK Attending Clinician Unavailable YENIFER MALLOY Attending Clinician Unavailable CARLOS GRAJEDA Attending Clinician Unavailable Carlos Grajeda MD Attending Clinician [phone] Jose Snyder MD Attending Clinician Demetrius Dugan MD Attending Clinician Yash Fournier MD Attending Clinician [phone] Alvin Alcala Attending Clinician Unavailable Maryann Mclean MD Attending Clinician Susanna Wick MD Attending Clinician Abdoulaye Johnson MD Attending Clinician ABDOULAYE JOHNSON Attending Clinician Unavailable Eloisa XIE, Gypsy Attending Clinician Unavailable Yenifer Malloy Attending Clinician Aruna Packer LMSW Attending Clinician Unavailable Prabha Narvaez Attending Clinician [phone] PRABHA WINN Attending Clinician Unavailable Yolanda KHALIL, Mindy Cobb Attending Clinician [phone] Attending Clinician Unavailable Judit Lau Attending Clinician Meño KHALIL, Mariaa Vitale Attending Clinician Kimberli Sierra MD Attending Clinician KIMBERLI SIERRA Attending Clinician Unavailable Chika Rosa Attending Clinician Unavailable SUSANNA WICK Admitting Clinician Unavailable JUDIT LAU Admitting Clinician Unavailable Payers Payer Name Policy Type Policy Number Effective Date Expiration Date urbano [facility] [place] [id number] 2023 PLAN 00:00:00 [place]ID [place] [id number] 2022 00:00:00 Problems Condition Condition Condition Status Onset Resolution Last Treating Co mments Source Name Details Category Date Date Treatment Clinician Date 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 Oral phase Oral phase Disease Recurre [facility] dysphagia dysphagia nce 5-17 [facility] 00:00: Medical 00 [place] Oropharyng Oropharyng Disease Active [facility] eal cancer eal cancer 5-17 Crista kes 00:00: Medical 00 Center Allergies, Adverse Reactions, Alerts Allergy Allergy Status Severity Reaction(s) Onset Inactive Treating Comm ents Source Name Type Date Date Clinician Hydrocod Drug Active Other (See Headaches [facility] one Allergy Comments) 6-20 [facility] Medical 00 Center HYDROCOD Allergy Active High Other [facility] ONE 6-20 [facility] 00:[facility]: Medical 00 Center No Known DA Active U [facility] Drug 05-12 Allergie 00:00: s 00 NO KNOWN Allergy Active [facility] Family History Family Member Diagnosis Comments Start Date Stop Date Source Natural father Lung cancer [facility] Maternal aunt Cancer [facility] Maternal uncle Prostate cancer [facility] Maternal uncle Kidney failure [facility] Natural mother Stomach cancer [facility] Social History Social Habit Start Date Stop Date Quantity Comments Source History of tobacco Cigarette Smoker [facility] History [facility]-Med Medical Center Alcohol intake 2023-03-08 2023-03-08 Ex-drinker [facility] es 00:00:00 00:00:00 (finding) Medical Center Exposure to 2023-02-22 2023-03-04 Not sure [facility] SARS-CoV-2 (event) 00:00:00 02:06:00 Medica l Center History [facility] 2023-03-04 2023-03-[address] [facility] Transport Med 00:00:00 00:00:[address] [facility] 2023-03-04 2023-03-04 1 [facility] Unable to 00:00:00 00:00:00 Medical Center Pay History [facility] 2023-03-04 2023-03-[address] [facility] Housing Places 00:00:00 00:00:00 Medical Ce nter Lived History [facility] 2023-03-04 2023-03-[address] [facility] Housing Homeless 00:00:00 00:00:00 Medical Center Last Year Cigarettes smoked 2023-02-23 2023-02-[address] [facility] current (pack per 00:00:00 00:00:00 Medical Center day) - Reported Cigarette 2023-02-23 2023-02-[address] [facility] pack-years 00:00:00 00:00:00 Medical Center [...] Smokes tobacco daily 2023-02-23 00:00:[address] [facility] Medications Ordered Filled Start Stop Current Ordering Indication Dosage Frequency Signature Comments Components Source Medication Medication Date Date Medication? Clinician (SIG) Name Name morphine 10 2022- No 5mg Take 2.[address] mg/5 mL 03-10 07-07 mLs (5 mg [facility] solution 16:00: 00:00 total) by Med ical 41 :00 mouth Center every 4 (four) hours as needed for Pain. methadone 0 Yes Cancer 2mg Take [address] (DOLOPHINE) -07 associated (2 mg L ukes 5 mg/5 mL 00:00: pain total) by Med ical solution 00 mouth Center every 12 (twelve) hours. morphine 10 0 Yes 5mg Take 2.[address] mg/5 mL 7-01 mLs (5 mg [facility] solution 07:57: total) by [place] 54 mouth Center every 4 (four) hours as needed for Pain. morphine 10 0 Yes 5mg Take 2.[address] mg/5 mL 7-01 mLs (5 mg [facility] solution 07:57: total) by [place] 54 mouth Center every 4 (four) hours as needed for Pain. morphine 10 2022-0 Yes 5mg Take 2.[address] mg/5 mL 7-01 mLs (5 mg [facility] solution 07:57: total) by [place] 54 mouth Center every 4 (four) hours [...] (5 mg [facility] solution 13:57: total) by [place] 48 mouth Center every 4 (four) hours as needed for Pain. miscellaneo Yes Oral [facility] 6-24 suction [facility] supply Misc 00:00: machine. Mt dical 00 Center miscellaneo Yes Oral [facility] 6-24 suction [facility] supply Misc 00:00: machine. Me dical 00 Center miscellaneo [address] [facility] 6-24 suction [facility] supply Misc 00:00: machine. Me dical 00 Center miscellaneo Yes Oral [facility] 6-24 suction [facility] supply Misc 00:00: machine. Me dical 00 Center miscellaneo [address] [facility] 6-24 suction [facility] supply Misc 00:00: machine. Me dical 00 Center methadone Yes Cancer 2mg Take [address] (DOLOPHINE) 6-23 associated (2 mg L ukes 5 mg/5 mL 00:00: pain total) by [facility] ical solution 00 mouth Center every 12 (twelve) hours. lactulose Yes 20g [id number] Take [address] (CHRONULAC) 6-23 [id number] mLs (20 g [facility]ukes 10 gram/15 00:00: 3D total) by Mt dical mL solution 00 mouth 3 Cente r (three) times daily. viscous 2023-0 Yes 5mL Swish and [facility] lidocaine 6-23 spit 5 mLs Luke s 2% (VISCOUS 00:00: every 6 Med ical LIDOCAINE) 00 (six) Center 2 % Soln hours as mucosal needed. solution methadone 2023-0 Yes Cancer 2mg Take [address] (DOLOPHINE) 6-23 associated (2 mg L ukes 5 mg/5 mL 00:00: pain total) by Med ical solution 00 mouth Center every 12 (twelve) hours. lactulose 2023-0 Yes 20g [id number] Take [address] (CHRONULAC) 6-23 [id number] mLs (20 g [facility]ukes 10 gram/15 00:00: 3D total) by Mt dical mL solution 00 mouth 3 Cente r (three) times daily. viscous 2023-0 Yes 5mL Swish and [facility] t lidocaine 6-23 spit 5 mLs Luke s 2% (VISCOUS 00:00: every 6 Med ical LIDOCAINE) 00 (six) Center 2 % Soln hours as mucosal needed. solution methadone 2023-0 Yes Cancer 2mg Take [address] (DOLOPHINE) 6-23 associated (2 mg L ukes 5 mg/5 mL 00:00: pain total) by Med ical solution 00 mouth Center every 12 (twelve) hours. lactulose 2023-0 Yes 20g [id number] Take [address] (CHRONULAC) 6-23 [id number] mLs (20 g [facility]ukes 10 gram/15 00:00: 3D total) by Mt dical mL solution 00 mouth 3 Cente r (three) times daily. viscous 2023-0 Yes 5mL Swish and [facility] t lidocaine 6-23 spit 5 mLs Luke s 2% (VISCOUS 00:00: every 6 Med ical LIDOCAINE) 00 (six) Center 2 % Soln hours as mucosal needed. solution methadone 2023-0 Yes Cancer 2mg Take [address] (DOLOPHINE) 6-23 associated (2 mg L ukes 5 mg/5 mL 00:00: pain total) by Med ical solution 00 mouth Center every 12 (twelve) hours. lactulose 2023-0 Yes 20g [id number] Take [address] (CHRONULAC) 6-23 [id number] mLs (20 g [facility]ukes 10 gram/15 00:00: 3D total) by Mt dical mL solution 00 mouth 3 Cente r (three) times daily. viscous 2022-0 Yes 5mL Swish and [facility] t lidocaine 6-23 spit 5 mLs Luke s 2% (VISCOUS 00:00: every 6 Med ical LIDOCAINE) 00 (six) Center 2 % Soln hours as mucosal needed. solution methadone 0 Yes Cancer 2mg Take [address] (DOLOPHINE) 6- associated (2 mg L ukes 5 mg/5 mL 00:00: pain total) by Med ical solution 00 mouth Center every 12 (twelve) hours. lactulose 0 Yes 20g [id number] Take [address] (CHRONULAC) 6-23 [id number] mLs (20 g [facility]ukes 10 gram/15 00:00: 3D total) by Mt dical mL solution 00 mouth 3 Cente r (three) times daily. viscous 0 Yes 5mL Swish and [facility] t lidocaine 6-23 spit 5 mLs Luke s 2% (VISCOUS 00:00: every 6 Med ical LIDOCAINE) 00 (six) Center 2 % Soln hours as mucosal needed. solution lactulose 0 Yes 20g [id number] Take [address] (CHRONULAC) 6-23 [id number] mLs (20 g [facility]ukes 10 gram/15 00:00: 3D total) by Mt dical mL solution 00 mouth 3 Cente r (three) times daily. viscous 0 Yes 5mL Swish and [facility] t lidocaine 6-23 spit 5 mLs Luke s 2% (VISCOUS 00:00: every 6 Med ical LIDOCAINE) 00 (six) Center 2 % Soln hours as mucosal needed. solution nicotine 2022- Yes 1{patch Q24H Place 1 [...] (5 mg [facility]ukes solution 08:23: total) by [facility] jasmina 13 mouth Center every 4 (four) hours as needed for Pain. Max Daily Amount: 30 mg ondansetron 0 Yes 8mg Take [address] (ZOFRAN-ODT 6-22 tablet (8 Malcolm es ) 8 MG 08:23: mg total) Medica l disintegrat 13 by mouth 2 Ce nter ing tablet (two) times daily as needed for Nausea. ondansetron 2023-0 Yes 8mg Take [address] (ZOFRAN) [...] pain) for up to 30 days. sennosides 0 2022- Yes 10mL QD Take [address] (SENOKOT) - 07-22 mLs by Lukes 8.8 mg/5 mL [...] for up to 30 days. ondansetron 3-0 2022- No 8mg Take 10 CH I [...] hours as needed for Nausea. sennosides 3-0 2023- No 10mL QD Take 10 [facility] [...] St -acetaminop 5-19 05-19 mouth Lukes hen (GARY :54: 00:00 every 6 Med ical 7.5-325) 24 :00 (six) Center 7.5-325 mg hours as per tablet needed for Pain (kimberlyn pain) Liquid form. HYDROcodone 2022- No Take by I St -acetaminop 5-19 05-19 mouth [facility]ukes hen (GARY :54: 00:00 every 6 Med ical 7.5-325) 24 :00 (six) Center 7.5-325 mg hours as per tablet needed for Pain (kimberlyn pain) Liquid form. HYDROcodone 2022- No Take by I St -acetaminop 5-19 05-19 mouth [facility]ukes hen (GARY :54: 00:00 every 6 Med ical 7.5-325) 24 :00 (six) Center 7.5-325 mg hours as per tablet needed for Pain (kimberlyn pain) Liquid form. HYDROcodone 2022- No Take by I St -acetaminop 5-19 05-19 mouth [facility]ukes hen (GARY 54: 00:00 every 6 Med ical 7.5-325) 24 :00 (six) Center 7.5-325 mg hours as per tablet needed for Pain (kimberlyn pain) Liquid form. HYDROcodone 2022- No Take by I St -acetaminop 5-19 05-19 mouth [facility]ukes hen (GARY :54: 00:00 every 6 Med ical 7.5-325) 24 :00 (six) Center 7.5-325 mg hours as per tablet needed for Pain (kimberlyn pain) Liquid form. HYDROcodone 2022- No Take by I St -acetaminop 5-19 05-19 mouth [facility]ukes hen (GARY :54: 00:00 every 6 Med ical 7.5-325) [...] form. HYDROcodone 2022-0 2022- No Take by I St -acetaminop 5-19 05-19 mouth [facility]ukes hen (NORCO 09:54: 00:00 every 6 Med ical 7.5-325) 24 :00 (six) Center 7.5-325 mg hours as per tablet needed for Pain (kimberlyn pain) Liquid form. HYDROcodone 2022-0 2022- No Take by I St -acetaminop 5-19 05-19 mouth [facility]ukes hen (NORCO 09:54: 00:00 every 6 Med ical 7.5-325) 24 :00 (six) Center 7.5-325 mg hours as per tablet needed for Pain (kimberlyn pain) Liquid form. HYDROcodone 2022-0 2022- No Take by I St -acetaminop [...] (Vitamin morning. B-12) 5,000 mcg/mL Drop cyanocobala 3-0 Yes 1[drp] QD Place 1 [...] Lukes vitamin 00:00: the tongue Medi jasmina B-, 00 in the Center (Vitamin morning. B-12) 5,000 mcg/mL Drop ferrous 2023- No 300mg QD Take [address] sulfate 300 5-19 05-18 (300 mg Luke s mg (60 mg 00:00: 23:59 total) by Me dical iron)/5 mL 00 :00 mouth in Cente r syrup the morning. ferrous 2023- No 300mg QD Take [address] sulfate 300 5-19 05-18 (300 mg Luke s mg (60 mg 00:00: 23:59 total) by Me dical iron)/5 mL 00 :00 mouth in Cente r syrup the morning. ferrous 2023- No 300mg QD Take [address] sulfate 300 5- 05-18 (300 mg Luke s mg (60 mg 00:00: 23:59 total) by Me dical iron)/5 mL 00 :00 mouth in Cente r syrup the morning. ferrous 2023- No 300mg QD Take [address] sulfate 300 5- 05-18 (300 mg Luke s mg (60 mg 00:00: 23:59 total) by Me dical iron)/5 mL 00 :00 mouth in Cente r syrup the morning. ferrous 2023- No 300mg QD Take [address] sulfate 300 5- 05-18 (300 mg Luke s mg (60 mg 00:00: 23:59 total) by Me dical iron)/5 mL 00 :00 mouth in Cente r syrup the morning. ferrous 2022-2023- No 300mg QD Take [address] sulfate 300 5-19 05-18 (300 mg Luke s mg (60 mg 00:00: 23:59 total) by Me dical iron)/5 mL 00 :00 mouth in Cente r syrup the morning. ferrous 2023- No 300mg QD Take [address] sulfate 300 5-19 05-18 (300 mg Luke s mg (60 mg 00:00: 23:59 total) by Me dical iron)/5 mL 00 :00 mouth in Cente r syrup the morning. ferrous 2022-0 2023- No 300mg QD Take [address] sulfate 300 5-19 05-18 (300 mg Luke s mg (60 mg 00:00: 23:59 total) by Me dical iron)/5 mL 00 :00 mouth in Cente r syrup the morning. ferrous 2022-0 2023- No 300mg QD Take [address] sulfate 300 5-19 05-18 (300 mg Luke s mg (60 mg 00:00: 23:59 total) by Me dical iron)/5 mL 00 :00 mouth in Cente r syrup the morning. ferrous 2022-0 2023- No 300mg QD Take [address] sulfate 300 5-19 05-18 (300 mg Luke s mg (60 mg 00:00: 23:59 total) by Me dical iron)/5 mL 00 :00 mouth in Cente r syrup the morning. ferrous 2022-0 2023- No 300mg QD Take [address] sulfate 300 5-19 05-18 (300 mg Luke s mg (60 mg 00:00: 23:59 total) by Me dical iron)/5 mL 00 :00 mouth in Cente r syrup the morning. ondansetron 2022-2022- No 8mg Take [address] (ZOFRAN-ODT 01-2018 tablet (8 Crista kes ) 8 MG 00:00: 23:59 mg total) Medic al disintegrat 00 :00 by mouth 2 Ce nter ing tablet (two) times daily as needed for Nausea for up to 30 days. morphine 2022- No 10mg Take 0.[address] 100 mg/5 mL 01-20-18 mLs (10 mg L ukes (20 mg/mL) 00:00: 23:59 total) by Joao rankin 00 :00 mouth Center d solution every 4 (four) hours as needed for Pain for up to 30 days C10.9 oropharyng eal cancer. Max Daily Amount: 60 mg ondansetron 2022-0 2022- No 8mg Take [address] [facility] [...] Take 0.[address] 100 mg/5 mL 5-20 02-18 mLs (10 mg L ukes (20 mg/mL) 00:00: 23:59 total) by M edical concentrate 00 :00 mouth Center d solution every 4 (four) hours as needed for Pain for up to 30 days C10.9 oropharyng eal cancer. Max Daily Amount: 60 mg morphine 2023-0 2023- No 10mg Take 0.[address] [facility] 100 mg/5 mL 5-19 -19 mLs (10 mg L ukes (20 mg/mL) 00:00: 00:00 total) by M edical concentrate 00 :00 mouth Center d solution every 4 (four) hours as needed for Pain for up to 30 days. Max Daily Amount: 60 mg morphine 2023-0 2023- No 10mg Take 0.[address] [facility] 100 mg/5 mL 5-19 -19 mLs (10 mg L ukes (20 mg/mL) [...] ukes (20 mg/mL) 00:00: 00:00 total) by edical concentrate 00 :00 mouth Center d [...] Take 0.[address] 100 mg/5 mL -19 05-19 mLs (10 mg L ukes (20 mg/mL) 00:00: 00:00 total) by Joao rankin 00 :00 mouth Center d solution every 4 (four) hours as needed for Pain for up to 30 days. Max Daily Amount: 60 mg HYDROcodone Yes Take by [facility] -acetaminop 5-17 mouth [facility]ukes hen (NORCO [...] kg Heart rate 2023-03-13 11:21:03 77 /min [facility] Body temperature 2023-03-13 11:21:03 36.78 Margi [facility] Respiratory rate 2023-03-13 11:21:03 17 /min [facility] Oxygen saturation in 2023-03-13 11:21:03 98 /min [facility] Arterial blood by Medical Ce nter Pulse oximetry Systolic blood 2023-03-13 11:20:30 97 mm[Hg] [facility] Diastolic blood 2023-03-13 11:20:30 68 mm[Hg] [facility] Heart rate 2023-03-10 07:45:31 75 /min [facility] Respiratory rate 2023-03-10 07:45:31 16 /min [facility] Oxygen saturation in 2023-03-10 07:45:31 100 /min [facility] Arterial blood by Medical Ce nter Pulse oximetry Body temperature 2023-03-10 07:44:56 36.94 Margi [facility] Systolic blood 2023-03-10 07:44:15 119 mm[Hg] [facility] Diastolic blood 2023-03-10 07:44:15 86 mm[Hg] [facility] Heart rate 2023-03-09 11:34:32 74 /min [facility] Respiratory rate 2023-03-09 11:34:32 18 /min [facility] Oxygen saturation in 2023-03-09 11:34:32 99 /min [facility] Arterial blood by Medical Ce nter Pulse oximetry Body temperature 2023-03-09 11:34:02 36.61 Margi [facility] Systolic blood 2023-03-09 11:33:45 124 mm[Hg] [facility] Diastolic blood 2023-03-09 11:33:45 90 mm[Hg] [facility] Systolic blood 2023-03-08 10:30:00 136 mm[Hg] [facility] Diastolic blood 2023-03-08 10:30:00 100 mm[Hg] [facility] Heart rate 2023-03-08 10:30:00 64 /min [facility] Respiratory rate 2023-03-08 10:30:00 11 /min [facility] Oxygen saturation in 2023-03-08 10:30:00 99 /min [facility] Arterial blood by Medical Ce nter Pulse oximetry Body temperature 2023-03-08 09:54:00 36 Amrgi [facility] Body height 2023-03-03 12:40:00 152.4 cm [facility] Body weight 2023-03-03 12:40:00 54.885 kg [facility] BMI 2023-03-03 12:40:00 23.63 kg/m2 [facility] Body height 2023-02-28 14:00:00 154.9 cm [facility] Body weight 2023-02-28 14:00:00 56.246 kg [facility] BMI 2023-02-28 14:00:00 23.43 kg/m2 [facility] Systolic blood 2023-02-24 08:13:00 120 mm[Hg] [facility] Diastolic blood 2023-02-24 08:13:00 97 mm[Hg] [facility] Heart rate 2023-02-24 08:13:00 88 /min [facility] Body height 2023-02-24 08:13:00 154.9 cm [facility] Body weight 2023-02-24 08:13:00 56.337 kg [facility] BMI 2023-02-24 08:13:00 23.47 kg/m2 [facility] Oxygen saturation in 2023-02-24 08:13:00 100 /min [facility] Arterial blood by Medical Ce nter Pulse oximetry Body temperature 2023-02-23 08:02:00 37 Margi [facility] Systolic blood 2023-01-20 07:55:00 136 mm[Hg] [facility] Diastolic blood 2023-01-20 07:55:00 82 mm[Hg] [facility] Heart rate 2023-01-20 07:55:00 71 /min [facility] Body temperature 2023-01-20 07:55:00 36.44 Margi [facility] Respiratory rate 2023-01-20 07:55:00 18 /min [facility] Oxygen saturation in 2023-01-20 07:55:00 100 /min [facility] Arterial blood by Medical Ce nter Pulse oximetry Systolic blood 2023-01-19 12:52:00 128 mm[Hg] [facility] Diastolic blood 2023-01-19 12:52:00 85 mm[Hg] [facility] Heart rate 2023-01-19 12:52:00 66 /min [facility] Body temperature 2023-01-19 12:52:00 36.72 Margi [facility] Respiratory rate 2023-01-19 12:52:00 18 /min [facility] Oxygen saturation in 2023-01-19 12:52:00 100 /min [facility] Arterial blood by Medical Ce nter Pulse oximetry Body height 2023-01-18 04:00:00 154.9 cm [facility] Body weight 2023-01-18 04:00:00 57.561 kg [facility] BMI 2023-01-18 04:00:00 23.98 kg/m2 [facility] Procedures Procedure Date / Time Performing Clinician Source Performed GLOSSECTOMY, TOTAL 2023-03-14 07:30:00 Susanna Wick [facility] DISSECTION, NECK, RADICAL 2023-03-14 07:30:00 Susanna Wick [facility] SKIN FLAP PROCEDURE, 2023-03-14 07:30:00 Vinh Alcocer [facility] FREE FLAP PROCEDURE, 2023-03-14 07:30:[address] [facility] LOWER EXTREMITY, WITH Medical Ce roberta MICROVASCULAR ANASTOMOSIS FLAP PROCEDURE, MUSCLE, 2023-03-14 07:30:00 Vinh Alcocer [facility] CREATION, FLAP, ROTATION 2023-03-14 07:30:00 Vinh Alcocer [facility] POCT-GLUCOSE METER 2023-03-13 11:44:00 Susanna Wick [facility] POCT-GLUCOSE METER 2023-03-13 06:05:00 Susanna Wick [facility] BASIC METABOLIC PANEL 2023-03-13 03:53:00 Cayden [facility] MAGNESIUM 2023-03-13 03:53:00 Cayden [facility] PHOSPHORUS 2023-03-13 03:53:00 Cayden [facility] POCT-GLUCOSE METER 2023-03-13 00:08:00 Susanna Wick [facility] POCT-GLUCOSE METER 2023-03-12 15:54:00 Debra [facility] POCT-GLUCOSE METER 2023-03-12 12:22:00 Debra [facility] POCT-GLUCOSE METER 2023-03-12 06:14:00 Debra [facility] BASIC METABOLIC PANEL 2023-03-12 03:31:00 Cayden [facility] MAGNESIUM 2023-03-12 03:[facility]23-03-12 03:31:00 Cayden [facility] POCT-GLUCOSE METER 2023-03-11 23:54:00 Susanna Wick [facility] POCT-GLUCOSE METER 2023-03-11 16:29:00 Debra [facility] POCT-GLUCOSE METER 2023-03-11 12:28:00 Debra [facility] POCT-GLUCOSE METER 2023-03-11 06:03:00 Susanna Wick [facility] BASIC METABOLIC PANEL 2023-03-11 04:02:00 Cayden [facility] MAGNESIUM 2023-03-11 04:02:00 Cayden [facility] PHOSPHORUS 2023-03-11 04:02:00 Cayden [facility] BASIC METABOLIC PANEL 2023-03-10 06:07:00 Cayden [facility] MAGNESIUM 2023-03-10 06:07:00 Cayden [facility] PHOSPHORUS 2023-03-10 06:07[facility]SE [facility] 2023-03-10 05:58:00 De[facility] POCT-GLUCOSE METER 2023-03-09 23:19:00 Susanna Wick [facility] POCT-GLUCOSE METER 2023-03-09 17:49:00 De[facility] POCT-GLUCOSE METER 2023-03-09 11:35:00 Debra [facility] POCT-GLUCOSE METER 2023-03-09 06:08:00 Debra [facility] CBC W/PLT COUNT & AUTO 2023-03-09 04:54:00 Cayden [facility] BASIC METABOLIC PANEL 2023-03-09 04:54:00 Cayden [facility] MAGNESIUM 2023-03-09 04:54:00 Cayden [facility] PHOSPHORUS 2023-03-09 04:54:00 Cayden [facility] ABORH, MANUAL 2023-03-09 04:54:00 Cayden [facility] CBC W/PLT COUNT & AUTO 2023-03-09 04:54:00 Cayden [facility] POCT-GLUCOSE METER 2023-03-08 23:36:00 Debra [facility] POCT-GLUCOSE METER 2023-03-08 17:43:00 Debra [facility] POCT-GLUCOSE METER 2023-03-08 11:29:00 Debra [facility] INSERTION, GASTROSTOMY 2023-03-08 07:55:00 Jose Snyder [facility] TUBE, LAPAROSCOPIC Medical Cente r POCT , URINE 2023-03-08 07:31:00 Sofie Blackwood [facility] TYPE AND SCREEN, 2023-03-08 07:28:[address] [facility] POCT-GLUCOSE METER 2023-03-08 05:51:00 Debra [facility] CBC W/PLT COUNT & AUTO 2023-03-08 03:29[facility] 2023-03-08 03:29[facility] 03:29[facility] 2023-03-08 03:29[facility] & AUTO 2023-03-08 03:29:00 Lito Hernandez [facility], [facility] DIFFERENTIAL [facility] POCT-GLUCOSE METER 2023-03-07 23:30:00 De[facility] POCT-GLUCOSE METER 2023-03-07 17:42:00 [facility] POCT-GLUCOSE METER 2023-03-07 12:05:00 [facility] [facility] POCT-GLUCOSE METER 2023-03-07 06:28:00 [facility] CBC W/PLT COUNT & AUTO 2023-03-07 04:54[facility]00 [facility]OLIC PANEL 2023-03-07 04:54:00 CaydenZak [facility] MAGNESIUM 2023-03-07 04:54:00 Cayden [facility] PHOSPHORUS 2023-03-07 04:54:00 Cayden [facility] CBC W/PLT COUNT & AUTO 2023-03-07 04:54:00 Lito Hernandez CH, I [facility] DIFFERENTIAL [facility] POCT-GLUCOSE METER 2023-03-06 23:58:00 Susanna Wick [facility] POCT-GLUCOSE METER 2023-03-06 17:09:00 [facility] SCREEN, URINE 2023-03-06 14:44:00 Jose Snyder [facility] POCT-GLUCOSE METER 2023-03-05 16:54:00 [facility] POCT-GLUCOSE METER 2023-03-05 12:26:00 [facility] CBC W/PLT COUNT & AUTO 2023-03-05 05:07:00 Chadd Clemente [facility] COMPREHENSIVE METABOLIC 2023-03-05 05:07:00 Chadd Clemente [facility] PANEL [facility] PREALBUMIN 2023-03-05 05:07:00 Chadd Clemente [facility] APTT 2023-03-05 05:07:00 Chadd Clemente [facility] PROTHROMBIN TIME/INR 2023-03-05 05:07:[address] [facility] CBC W/PLT COUNT & AUTO 2023-03-05 05:07:00 Chadd Clemente [facility] HC LAB HIV-1 AG W/HIV-1&2 2023-03-04 12:31:00 FallNakul [facility] HEPATITIS C ANTIBODY 2023-03-04 12:31:00 Nakul Edmond [facility] PREALBUMIN 2023-03-04 12:31:00 FallNakul Vinh [facility] XR ABDOMEN/KUB 1 VIEW 2023-03-03 18:48:00 Rick Ball [facility] LARYNGOSCOPY, WITH BIOPSY 2023-03-03 16:15:00 Susanna Wick [facility] LARYNGOSCOPY, WITH BIOPSY 2023-03-03 14:48:00 Susanna Wick [facility] POCT , URINE 2023-03-03 13:08:00 Maryann Mclean [facility] CT CHEST WITH IV CONTRAST 2023-02-23 12:27:50 Prabha Winn [facility] NECK SOFT TISSUE WITH 2023-02-23 12:27:31 Prabha Winn CH I [facility] IV CONTRAST [facility] XT NORMAL BLOOD (TEMPUS) 2023-02-23 10:54:00 Carlos Grajeda [facility] BASIC METABOLIC PANEL 2023-01-20 04:17:00 Mariaa Wilder [facility] MAGNESIUM 2023-01-20 04:17:00 Mariaa Wilder [facility] PHOSPHORUS 2023-01-20 04:17:00 [facility] BASIC METABOLIC PANEL 2023-01-19 05:08:00 Mariaa Wilder [facility] MAGNESIUM 2023-01-19 05:08:00 Mariaa Wilder [facility] PHOSPHORUS 2023-01-19 05:08:00 Mariaa Wilder [facility] VITAMIN B12 2023-01-19 05:08:00 Meño Mariaarohit Vitale [facility] IRON, TIBC, % SAT. 2023-01-19 05:08:00 Mariaa Wilder [facility] (WITHOUT FERRITIN) [facility] r [facility] CHEST WITH IV CONTRAST 2023-01-18 14:51:00 Cesia Lau [facility] CBC W/PLT COUNT & AUTO 2023-01-18 05:18:00 Romilateshavicentafacundo Judit Hurd [facility] COMPREHENSIVE METABOLIC 2023-01-18 05:18:[address] [facility] MAGNESIUM 2023-01-18 05:18:00 Heavenly Laujammie [facility] PHOSPHORUS 2023-01-18 05:18:00 Judit Lau [facility] CBC W/PLT COUNT & AUTO 2023-01-18 05:18:00 Romilateshavicentafacundo Judit Hurd [facility] Plan of Care Planned Activity [...] [facility] l Center cervix (procedure) [code = 700584018] Future Scheduled 2019-04-[address] [facility] 00:[facility] malignant ne[facility] cervix (procedure) [code = 031372990] Future Scheduled 2019-04-[address] [facility] 00:00:00 [facility] cervix (procedure) [code = 503728881] Future Scheduled 2019-04-[address] [facility] 00:00:00 [facility] cervix (procedure) [code = 314780029] Future Scheduled 2019-04-[address] [facility] 00[facility]00:00 [facility] cervix (procedure) [code = 697075858] Future Scheduled 2019-04-[address] [facility] 00:00:00 [facility] cervix (procedure) [code = 945997619] Future Scheduled [address] [facility] 00:00:00 [facility] cervix (procedure) [code = 318910920] Future Scheduled [address] [facility] 00:00:00 malignant [facility] cervix (procedure) [code = 967661247] Future Scheduled [address] [facility] 00:00:00 malignant [facility] cervix (procedure) [code = 582795604] Future Scheduled [address] [facility] 00:00:00 malignant [facility] cervix (procedure) [code = 953948067] Future Scheduled [address] [facility] 00:00:00 malignant [facility] cervix (procedure) [code = 175578931] Future Scheduled [address] [facility] 00:00:00 malignant ne[facility] cervix (procedure) [code = 338600351] Future Scheduled [address] [facility] 00:00:00 malignant [facility] cervix (procedure) [code = 711630096] Future Scheduled [address] [facility] 00:00:00 malignant ne[facility] cervix (procedure) [code = 659893539] Future Scheduled [address] [facility] 00:00:00 (procedure) [code = [facility] 46860573] Future Scheduled [address] [facility] Test 00:00:00 (procedure) [code = [facility] 54990443] Future Scheduled [address] [facility] 00:00:00 (procedure) [code = [facility] 12867942] Future Scheduled [address] [facility] 00:00:00 (procedure) [code = [facility] 84289921] Future Scheduled [address] [facility] Test 00:00:00 (procedure) [code = [facility] 53699387] Future Scheduled [address] [facility] Test 00:00:00 (procedure) [code = [facility] 34892439] Future Scheduled [address] [facility] Test 00:00:00 (procedure) [code = [facility] 31902533] Future Scheduled [address] [facility] Test 00:00:00 (procedure) [code = [facility] 60295108] Future Scheduled [address] [facility] 00:00:00 (procedure) [code = [facility] 02168234] Future Scheduled [address] [facility] 00:00:00 (procedure) [code = [facility] 77234493] Future Scheduled [address] [facility] 00:00:00 (procedure) [code = [facility] Center 41404560] Future Scheduled [address] [facility] Test 00:00:00 (procedure) [code = Medical Center 89051899] Future Scheduled 2001 DTAP/TDAP/TD VACCINES CH I [...] Type Clinicians Facility Department ID 2023-03-09 Outpatient [facility] Surgery [id number] [facility] 08:48:52 2023-03-03 Inpatient [facility] [id number] [facility] 18:30:29 SUSANNA 2023-06-05 2023-06-05 Outpatient JUANITA [facility] [id number] [facility] 00:00:00 00:00:00 2023-05-05 2023-05-05 Outpatient JUANITA [facility] [id number] [facility] 06:48:56 06:48:56 2023-04-12 2023-04-12 Outpatient JUANITA MALLOY [facility] [id number] [facility] 00:00:00 00:00:00 YENIFER 2023-04-12 2023-04-12 Outpatient JUANITA GRAJEDA [facility] [id number] [facility] 00:00:00 00:00:00 CARLOS 2023-04-04 2023-04-04 Outpatient JUANITA [facility] [id number] [facility] 06:46:17 06:46:17 2023-03-03 2023-03-22 Inpatient JUANITA WICK [facility] Surgery [id number] [facility] 12:21:00 18:52:00 SUSANNA 2023-03-13 2023-03-13 Outpatient JUANITA GRAJEDA [facility] [id number] [facility] 00:00:00 00:00:00 CARLOS 2023-03-10 2023-03-10 [facility] Nicci [facility] [id number] [facility] 12:00:00 12:00:00 Encounter Carlos [facility] 2023-03-10 2023-03-10 Outpatient JUANITA GRAJEDA [facility] [id number] [facility] 00:00:00 00:00:00 CARLOS 2023-03-10 2023-03-10 Outpatient YOLANDE MONET SLE [id number] [facility] 00:00:00 00:00:00 YENIFER 2023-03-08 2023-03-[address] [facility] [id number] 08:00:00 10:03:00 [facility] 2023-03-08 2023-03-[address] [facility] [id number] 07:56:00 09:55:00 [facility]-05 2023-03-[address] [facility] [id number] 19:31:18 19:31:18 Event [facility] 2023-03-04 2023-03-[address] [facility] [id number] [facility] 00:00:00 [facility] 2023-03-03 2023-03-[address] [facility] [id number] 16:11:00 17:19[facility]00 [facility]23-[facility] [facility] [id number] 13:48:00 15:23:00 [facility] 2023-03-01 2023-03-01 Procedure Abdoulaye Johnson [facility] [id number] 14:00:00 15:00:00 visit Susanna Wick [facility] 2023-03-01 2023-03-[address] [facility] [id number] [facility] 00:[facility]00 00:00:00 [facility] 2023-02-28 2023-02-28 Outpatient YOLANDE CONTRERAS [facility] [id number] SLE 11:39:48 11:39:48 ABDOULAYE 2023-02-28 2023-02-28 Outpatient JUANITA SLE SLE [id number] SLE 00:00:00 00:00:00 2023-02-28 2023-02-[address] [facility] [id number] 00:00:00 00:00:00 [facility] 2023-02-28 2023-02-[address] [facility] [id number] [facility] 00:[facility]00 00:00:00 [facility] 2023-02-24 2023-02-24 Office Mellissa, [facility] [id number] 08:00:00 10:46:55 Visit [facility] 2023-02-24 2023-02-24 Outpatient YOLANDE MONET SLE [id number] SLE 07:59:33 10:46:55 [place] 2023-02-24 2023-02-[address] [facility] [id number] 00:00:00 00:00:00 [facility] 2023-02-24 2023-02-[address] [facility] [id number] 00:00:00 00:00:00 [facility] 2023-02-23 2023-02-23 [facility], [facility] [id number] 11:38:18 23:59:00 Encounter [facility] 2023-02-23 2023-02-23 Outpatient JUANITA WINN SLEDarryn SLE [id number] SLEH 11:38:18 23:59:00 [facility] 2023-02-23 2023-02-23 [facility] [place], [facility] [id number] 11:37:51 11:37:51 Encounter [facility] 2023-02-23 2023-02-23 Outpatient JUANITA WINN SLEDarryn [facility] [id number] [facility]H 11:37:51 11:37:51 [facility] 2023-02-23 2023-02-[address] [facility] [id number] 08:00:00 11:23:03 Visit [facility] Medica [facility] 2023-02-23 2023-02-23 Outpatient EL GRAJEDA, [facility] [id number] SLE 07:59:25 11:23:03 CARLOS 2023-02-23 2023-02-23 Treatment Nicci, [facility] [id number] 10:35:00 10:50:00 [facility] Medica [facility] 2023-02-23 2023-02-23 Outpatient EL [facility] [id number] SLE 10:44:57 10:44:57 2023-02-23 2023-02-23 Outpatient EL [facility] [id number] SLE 00:00:00 00:00:00 2023-02-23 2023-02-[address] [facility] [id number] 00:00:00 00:00:00 Only [facility] 2023-02-23 2023-02-23 Documentat Kurt, [facility] [id number] 00:00:00 00:00:00 [facility] 2023-02-21 2023-02-21 Orders Lostemily, [facility] [id number] 00:00:00 00:00:00 [facility] 2023-02-15 2023-02-15 Telephone Nicci, [facility] [id number] 00:00:00 00:00:00 [facility] 2023-01-18 2023-01-20 [facility] [id number] 03:16:00 12:00:00 [facility] 2023-01-18 2023-01-20 Inpatient ER MARIELA, [facility] Oncology [id number] SLE 03:16:00 12:00:00 KIMBERLI 2023-01-18 2023-01-18 Outpatient EL NICCI, [facility] [id number] SLE 00:00:00 00:00:00 CARLOS 2023-01-18 2023-01-[address] [facility] [id number] [facility] 00:00:00 00:00:00 [facility] 2022-05-12 2022-05-12 Emergency Emergency Rassoli, [facility] [id number] [facility] 21:57:00 21:57:00 Amir 44 2022-05-12 2022-05-12 Emergency [facility] [id number] [facility] 21:57:00 21:57:00 44 Results Test Description Test Time Test Comments Results Result [facility] e Comments TISSUE EXAM 2023-03-24 Surgical Pathology Report 18:48:03 Case: [id number] Authorizing Provider: Susanna Wick MD Collected: 03/14/2023 09:04 AM Ordering Location: [address] Received: 03/15/2023 02:25 PM Service Pathologist: [...] CARCINOMA (0/22) Signing Pathologist Direct Phone Line: [phone] y signed by Eb Toney MD on 03/24/2023 at 6:48 PMRe-excision of the positive margins (floor of mouth, retromolar trigone, right base of tongue) are negative. Clinical correlation is recommended for the significance of the cauterized tumor at right soft tissue margin/positive margin. ORAL CAVITYLIP AND ORAL CAVITY: INCISIONAL BX, EXCISIONAL BX, RESECTION - All Pkqxvtnlt0hf Edition - Protocol posted: 08/20/2021PECIMEN Procedure: Glossectomy: [...] ADDITIONAL FINDINGS Additional Findings: Epithelial hyperplasia A. 85487Y. 08623M. 34114R. 58209, 18750 x 1, 46370 x 5, 34731 x 1, 04703 x 2E. 42531, 23175 x 1F. 14861H. 05699, 20581Z. 93908 02043, 60877 x 1, 06400 x 1I. 20073, 39868 x 1Tongue cancerGlossectomy and bilateral neck lymph [...] cut surface. The lymph nodes and a housing management representative section of this gland are submitted as described below.B1-1 possible lymph node, bisectedB2-1 lymph node, bisectedB3-1 lymph node, trisectedB 4-1 lymph node, bisectedB5-housing management representative section of glandC. Neck, LeftPart C [...] node, sectionedC4-1 lymph node, bisectedC5-1 whole possible nodeC6-housing management representative section of glandD. Soft Tissue, OtherThe [...] base of tongue (yellow at tip and anterior)N79-vvabd 2, start of zbcjhtnfvnM43- slice 3, continuity of ixqzqdiyhsO67- slice 4, continuity of vifvjwlivrN01- slice 5, continuity of kjbvnvysphG96- slice 6, continuity of kpspymjncmL79- slice 7- mass, closest deep cicgvtI22- slice 9, Mass, with the closest left soft tissue iseigsF41- Slice 10, housing management representative section of massD20- Slice 11, tumor abutting right soft efwgulL94- D24- base of tongue, perpendicular sections, right side, with closest tumor to base of dbniakD18-I19- housing management representative sections of mezygoankkT72- housing management representative sections of uvulaE. Soft Tissue, Other [...] node, bisectedF8-1 lymph node, bisectedF9-1 lymph node, jyzohalkO83-3 lymph node, spzoouunW40-4 lymph node, bisectedF 12-1 lymph node, bisectedF 13-4 whole possible fkrhgP15-3 whole possible nodesG. Soft Tissue, Otherspecimen received [...] lymph nodesI8-4 whole lymph nodesI9-4 whole lymph dwjfaH82-7 whole lymph nodesD. Soft Tissue, OtherFROZEN SECTIONSubtotal [...] the use of immunohistochemistry or special stains.D18, X13WR88 & D2-40: knhyehqaH20- pnatfezcI6HU18- blzaguykS25- negative I10P40- negativeControl Slides Examined: In-house known positive controls were evaluated along with the test tissue. These control slides run alongside of the patients sample show appropriate staining. Internal positive and negative controls when available are evaluated Immunohistochemistry technical testing was performed at [facility], Pathology Laboratory where it was developed [...] qualified to perform high complexity clinical laboratory testing.[facility], Department of Pathology, [address] [place] [address], [place] [address], [facility], [address] [place] [address], [facility], Department of Pathology, [address] [place] [address], POCT-GLUCOSE METER 2023-03-22 12:40:41 Test Item Value Reference Range Interpretation Comme nts POC-GLUCOSE METER (BEAKER) 107 mg/dL 70-110 : TESTED AT [address] (test code = 1538) [facility] X, [address]: Music Composer/Techni federico ID = [id number] for TIRSO JAVIER [id number] 07:32:41 Test Item Value Reference Range Interpretation Comments MAGNESIUM (BEAKER) (test code = 2.0 mg/dL 1.6-2.6 627) Music Composer ID - [id number] 07:32:41 Test Item Value Reference Range Interpretation Comments PHOSPHORUS (BEAKER) (test code = 5.2 mg/dL 2.3-4.7 H 604) Music Composer ID - EOOBASIC METABOLIC [id number] 07:32:40 Test Item Value Reference Range Interpretation [...] not appl icable for dialysis patien ts Music Composer ID - EOOPOCT-GLUCOSE [id number] 06:26:25 Test Item Value Reference Range Interpretation Comments POC-GLUCOSE METER 84 mg/dL 70-110 : TESTED A T [facility] 6720 (BEAKER) (test code = [place], 1538) [address]: Music Composer/Techni federico ID = [id number] for SEMI EN, HANG CBC (HEMOGRAM ONLY)2023-03-22 [...] 0-0 (BEAKER) (test code = 413) POCT-GLUCOSE [id number] 23:51:48 Test Item Value Reference Range Interpretation Comments POC-GLUCOSE METER 127 mg/dL 70-110 H : TESTED A T [facility] 6720 (BEAKER) (test code = [facility], 1538) 06[address]: Music Composer/Techni federico ID = [id number] for HANG ALMAZAN POCT-GLUCOSE [id number] 15:58:20 Test Item Value Reference Range Interpretation Comments POC-GLUCOSE METER 101 mg/dL 70-110 : TESTED A T [facility] 6720 (BEAKER) (test code = [facility], 1538) 848[address]: Music Composer/Techni federico ID = [id number] for Al rahel, Sonali POCT-GLUCOSE [id number] 13:10:10 Test Item Value Reference Range Interpretation Comments POC-GLUCOSE METER 102 mg/dL 70-110 : TESTED A T [facility] 6720 (BEAKER) (test code = [facility], 1538) 57245: Music Composer/Techni federico ID = [id number] for Al rahel, Sonali POCT-GLUCOSE [id number] 06:57:42 Test Item Value Reference Range Interpretation Comments POC-GLUCOSE METER 98 mg/dL 70-110 : TESTED A T [facility] 6720 (BEAKER) (test code = [facility], 1538) 93855: Music Composer/Techni federico ID = [id number] for SEMI HANG MORRISON [id number] 06:09:48 Test Item Value Reference Range Interpretation Comments MAGNESIUM (BEAKER) (test code = 1.9 mg/dL 1.6-2.6 627) Music Composer ID - SARAH [id number] 06:09:48 Test Item Value Reference Range Interpretation Comments PHOSPHORUS (BEAKER) (test code = 4.2 mg/dL 2.3-4.7 604) Music Composer ID - SARAH WBASIC METABOLIC [id number] 06:09:47 Test Item Value Reference Range Interpretation [...] not appl icable for dialysis patien ts Music Composer ID Cecilia SMITH WCBC (HEMOGRAM ONLY)2023-03-21 05:41:00 Test Item Value [...] 0-0 (BEAKER) (test code = 413) POCT-GLUCOSE [id number] 02:33:24 Test Item Value Reference Range Interpretation Comments POC-GLUCOSE METER 80 mg/dL 70-110 : TESTED A T [facility] 6720 (BEAKER) (test code = [facility], 1538) 964[address]: Music Composer/Techni federico ID = [id number] for Sue Brito POCT-GLUCOSE [id number] 18:37:31 Test Item Value Reference Range Interpretation Comments POC-GLUCOSE METER 84 mg/dL 70-110 : TESTED A T [facility] 6720 (BEAKER) (test code = [facility], 1538) 81789: Music Composer/Techni federico ID = [id number] for Power macias, Angela POCT-GLUCOSE [id number] 13:00:04 Test Item Value Reference Range Interpretation Comments POC-GLUCOSE METER 91 mg/dL 70-110 : TESTED A T [facility] 6720 (BEAKER) (test code = [facility], 1538) 77602: Music Composer/Techni federico ID = [id number] for Power macias, Angela [id number] 06:24:55 Test Item Value Reference Range Interpretation Comments PHOSPHORUS (BEAKER) (test code = 3.2 mg/dL 2.3-4.7 604) Music Composer ID - EOOBASIC METABOLIC [id number] 06:24:54 Test Item Value Reference Range Interpretation [...] not appl icable for dialysis patien ts Music Composer ID - [id number] 06:24:54 Test Item Value Reference Range Interpretation Comments MAGNESIUM (BEAKER) (test code = 1.9 mg/dL 1.6-2.6 627) Music Composer ID - EOOPOCT-GLUCOSE [id number] 05:44:23 Test Item Value Reference Range Interpretation Comments POC-GLUCOSE METER 73 mg/dL 70-110 : TESTED A T [facility] 6720 (BEAKER) (test code = [place], 1538) 17551: Music Composer/Techni federico ID = [id number] for Ramiro Pitts CBC (HEMOGRAM ONLY)2023-03-20 05:41:41 [...] 0-0 (BEAKER) (test code = 413) POCT-GLUCOSE [id number] 01:11:53 Test Item Value Reference Range Interpretation Comments POC-GLUCOSE METER 99 mg/dL 70-110 : TESTED A T [facility] 6720 (BEAKER) (test code = [facility], [facility]8) 39670: Music Composer/Techni federico ID = [id number] for Ramiro Pitts POCT-GLUCOSE [id number] 18:05:19 Test Item Value Reference Range Interpretation Comments POC-GLUCOSE METER 141 mg/dL 70-110 H : TESTED A T [facility] 6720 (BEAKER) (test code = [facility], 1538) 18981: Music Composer/Techni federico ID = [id number] for Ok makenna, Avery POCT-GLUCOSE [id number] 05:30:38 Test Item Value Reference Range Interpretation Comments POC-GLUCOSE METER 139 mg/dL 70-110 H : TESTED A T [facility] 6720 (BEAKER) (test code = [facility], 1538) 35666: Music Composer/Techni federico ID = [id number] for Ad ams, Kimetra [id number] 02:57:20 Test Item Value Reference Range Interpretation Comments MAGNESIUM (BEAKER) (test code = 1.9 mg/dL 1.6-2.6 627) [id number] 02:57:20 Test Item Value Reference Range Interpretation Comments PHOSPHORUS (BEAKER) (test code = 3.7 mg/dL 2.3-4.7 604) BASIC METABOLIC [id number] 02:57:19 Test Item Value Reference Range Interpretation [...] (test code = 697) EGFR (BEAKER) 118 Interpretati on of eGFR (test code = [...] 0-0 (BEAKER) (test code = 413) POCT-GLUCOSE [id number] 23:35:47 Test Item Value Reference Range Interpretation Comments POC-GLUCOSE METER 146 mg/dL 70-110 H : TESTED A T [facility] 6720 (BEAKER) (test code = [facility], 1538) 42319: Music Composer/Techni federico ID = [id number] for Ad amsDarline POCT-GLUCOSE [id number] 13:10:55 Test Item Value Reference Range Interpretation Comments POC-GLUCOSE METER 98 mg/dL 70-110 : TESTED A T [facility] 6720 (BEAKER) (test code = [facility], 1538) 22316: Music Composer/Techni federico ID = [id number] for NIST OR, TIFFANY [id number] 02:07:47 Test Item Value Reference Range Interpretation Comments PHOSPHORUS (BEAKER) (test code = 3.7 mg/dL 2.3-4.7 604) Music Composer ID - [id number] 02:07:46 Test Item Value Reference Range Interpretation Comments MAGNESIUM (BEAKER) (test code = 1.8 mg/dL 1.6-2.6 627) Music Composer ID - MARCOBASIC METABOLIC [id number] 02:07:46 Test Item Value Reference Range Interpretation [...] not appl icable for dialysis patien ts Music Composer ID - MARCOCBC (HEMOGRAM ONLY)2023-03-18 01:43:23 Test [...] 0-0 (BEAKER) (test code = 413) POCT-GLUCOSE [id number] 06:11:57 Test Item Value Reference Range Interpretation Comments POC-GLUCOSE METER 116 mg/dL 70-110 H : TESTED A T [facility] 6720 (BEAKER) (test code = [place], 1538) [address]: Music Composer/Techni federico ID = [id number] for IB ADAM VARGAS BASIC METABOLIC [id number] 04:24:08 Test Item Value Reference Range Interpretation [...] not appl icable for dialysis patien ts Music Composer ID - [id number] 04:24:08 Test Item Value Reference Range Interpretation Comments MAGNESIUM (BEAKER) (test code = 3.9 mg/dL 1.6-2.6 H 627) Music Composer ID - [id number] 04:24:08 Test Item Value Reference Range Interpretation Comments PHOSPHORUS (BEAKER) (test code = 3.1 mg/dL 2.3-4.7 604) Music Composer ID - ADMINCBC (HEMOGRAM ONLY)2023-03-17 03:52:15 Test [...] 0-0 (BEAKER) (test code = 413) POCT-GLUCOSE [id number] 00:05:32 Test Item Value Reference Range Interpretation Comments POC-GLUCOSE METER 125 mg/dL 70-110 H : TESTED A T [facility] 67 ([facility]) (test code = [facility], 153) [address]: Music Composer/Techni federico ID = [id number] for IB ENEME, EUCHERIA POCT-GLUCOSE [id number] 18:44:19 Test Item Value Reference Range Interpretation Comments POC-GLUCOSE METER 125 mg/dL 70-110 H : Notified RN/MD: ([facility]) (test code = TESTED AT [facility] 6720 153) [facility], [address]: Music Composer/Techni federico ID = [id number] for Senia Villatoro POCT-GLUCOSE [id number] 13:09:35 Test Item Value Reference Range Interpretation Comments POC-GLUCOSE METER 108 mg/dL 70-110 : [facility] 6720 (BEAKER) (test code = [place], 1538) [address]: Music Composer/Techni federico ID = [id number] for Senia Villatoro [id number] 05:44:01 Test Item Value Reference Range Interpretation Comments PHOSPHORUS (BEAKER) (test code = 3.4 mg/dL 2.3-4.7 604) Music Composer ID - MMBASIC METABOLIC [id number] 05:44:00 Test Item Value Reference Range Interpretation [...] not appl icable for dialysis patien ts Music Composer ID - [id number] 05:44:00 Test Item Value Reference Range Interpretation Comments MAGNESIUM (BEAKER) (test code = 2.6 mg/dL 1.6-2.6 627) Music Composer ID - MMCBC (HEMOGRAM ONLY)2023-03-16 05:40:09 Test [...] 0-0 (BEAKER) (test code = 413) POCT-GLUCOSE [id number] 00:06:45 Test Item Value Reference Range Interpretation Comments POC-GLUCOSE METER 127 mg/dL 70-110 H : TESTED A T [facility] 6720 (BEAKER) (test code [facility], = 1538) [address]: Music Composer/Techni federico ID = [id number] for Balwinder Smith POCT-GLUCOSE [id number] 17:44:55 Test Item Value Reference Range Interpretation Comments POC-GLUCOSE METER 119 mg/dL 70-110 H : TESTED A T [facility] 6720 (BEAKER) (test code = PAVAN Thomas [facility], 1538) [address]: Music Composer/Techni federico ID = [id number] for Rod elin Senia POCT-GLUCOSE [id number] 14:16:32 Test Item Value Reference Range Interpretation Comments POC-GLUCOSE METER 120 mg/dL 70-110 H : TESTED A T [facility] 6720 (BEAKER) (test code = [place], 1538) [address]: Music Composer/Techni federico ID = [id number] for Senia Villatoro [id number] 05:50:48 Test Item Value Reference Range Interpretation Comments MAGNESIUM (BEAKER) (test code = 1.5 mg/dL 1.6-2.6 L 627) Music Composer ID - SARAH [id number] 05:50:48 Test Item Value Reference Range Interpretation Comments PHOSPHORUS (BEAKER) (test code = 4.0 mg/dL 2.3-4.7 604) Music Composer ID - SARAH WBASIC METABOLIC [id number] 05:50:47 Test Item Value Reference Range Interpretation [...] not as accur ate as Creatinine Clementine orbson in predicting glom erular filtration rate . Estimated GFR is not appl icable for dialysis patien ts Music Composer ID - SARAH WCBC (HEMOGRAM ONLY)2023-03-15 05:18:47 [...] code = 413) HGB/HCT (H&H) - STAT [id number] 16:32:34 Test Item Value Reference Range Interpretation Comments HEMOGLOBIN (BEAKER) (test code = 11.2 GM/DL 12.0-15.0 L 410) HEMATOCRIT (BEAKER) (test code = 33.0 % 36.0-45.0 L 411) BLOOD GAS, [id number] 16:32:34 Test Item Value Reference Range Interpretation [...] (BEAKER) (test code = 1819) 30.0 CALCIUM, [id number] 16:32:33 Test Item Value Reference Range Interpretation Comments CALCIUM IONIZED (BEAKER) (test 1.14 mmol/L 1.12-1.27 code = 698) PH, BLOOD (BEAKER) (test code = 7.42 1810) GLUCOSE-STAT [id number] 16:32:14 Test Item Value Reference Range Interpretation Comments GLUCOSE RANDOM (BEAKER) (test code 142 mg/dL 70-110 H = 652) BLOOD GAS, [id number] 13:13:17 Test Item Value Reference Range Interpretation [...] (BEAKER) (test code = 1819) 28.0 CALCIUM, [id number] 13:13:16 Test Item Value Reference Range Interpretation Comments CALCIUM IONIZED (BEAKER) (test 1.28 mmol/L 1.12-1.27 H code = 698) PH, BLOOD (BEAKER) (test code = 7.43 1810) POTASSIUM-STAT [id number] 13:12:06 Test Item Value Reference Range Interpretation Comments POTASSIUM (BEAKER) (test code = 4.3 meq/L 3.6-5.5 379) HGB/HCT (H&H) - STAT [id number] 13:12:06 Test Item Value Reference Range Interpretation Comments HEMOGLOBIN (BEAKER) (test code = 12.8 GM/DL 12.0-15.0 410) HEMATOCRIT (BEAKER) (test code = 38.0 % 36.0-45.0 411) GLUCOSE-STAT [id number] 13:12:05 Test Item Value Reference Range Interpretation Comments GLUCOSE RANDOM (BEKEISHA) (test code 119 mg/dL 70-110 H = 652) SODIUM NA-STAT [id number] 13:12:05 Test Item Value Reference Range Interpretation Comments SODIUM (BEAKER) (test code = 381) 135 meq/L 136-145 L TISSUE [id number] 12:28:43Surgical Pathology Report Case: [id number] Authorizing Provider: Susanna Wick MD Collected: 03/03/2023 04:51 PM Ordering Location: [facility] Received: 03/06/2023 10:23 AM SERVICES Pathologist: Nick Banks MD Specimen: Tongue, RIGHT ANTERIOR TONSILAR PILLAR A. RIGHT ANTERIOR TONSILLAR PILLAR, BIOPSY - LYMPHOID TISSUE, NEGATIVE FOR CARCINOMA. Signing Pathologist Direct Phone Line: [phone] signed by Nick Banks MD on 03/14/2023 at 12:28 PMImmunostains for AE1/AE3 and p40 are negative.71839, 65170, 66830Cydgqb cancerA. TongueReceived fresh labeled with the patient's name, medical record number and "tongue" is a 0.6 x 0.3 x 0.2 cm red soft tissue fragment submitted in toto in A1.ALIA Sorto, PA (ASCP)cmPerformed.The interpretation of this case included the use of immunohistochemistry or special stains.Control Slides Examined: In-house known positive controls were evaluated along with the test tissue. These control slides run alongside of the patients sample show appropriate staining. Internal positive and negative controls when available are evaluatedImmunohistochemistry technical testing was performed at [facility] where it was developed and its performance characteristics were determined. It has not been cleared or approved by the U.S. Food and Drug Administration. The FDA has determined that such clearance or approval is not necessary. The test is used for clinical purposes. It should not be regardedas investigational or for research. This laboratory is certified under the Clinical Laboratory Improvement Amendments of 1988 (CLIA-88) as qualified to perform high complexity clinical laboratory testing.SODIUM NA-STAT [id number] 08:29:01 Test Item Value Reference Range Interpretation Comments SODIUM (BEAKER) (test code = 381) 134 meq/L 136-145 L CALCIUM, [id number] 08:29:00 Test Item Value Reference Range Interpretation Comments CALCIUM IONIZED (BEAKER) (test 1.10 mmol/L 1.12-1.27 L code = 698) PH, BLOOD (BEAKER) (test code = 7.45 1810) BLOOD GAS, [id number] 08:29:00 Test Item Value Reference Range Interpretation [...] (BEAKER) (test code = 1819) 54.0 POTASSIUM-STAT [id number] 08:27:11 Test Item Value Reference Range Interpretation Comments POTASSIUM (BEAKER) (test code = 4.4 meq/L 3.6-5.5 379) HGB/HCT (H&H) - STAT [id number] 08:27:11 Test Item Value Reference Range Interpretation Comments HEMOGLOBIN (BEAKER) (test code = 12.3 GM/DL 12.0-15.0 410) HEMATOCRIT (BEAKER) (test code = 36.0 % 36.0-45.0 411) GLUCOSE-STAT [id number] 08:27:10 Test Item Value Reference Range Interpretation Comments GLUCOSE RANDOM (BEAKER) (test code = 92 mg/dL 70-110 652) SARS-COV2/RT-PCR ([facility])2023-03-14 07:10:29 Test Item Value Reference Range Interpretation Comments SARS-COV2/RT-PCR Negative Negative The SARS-Co V-2 target (test code = nucleic acids a re not 1312728) detected in thi s specimen. Negative result [...] revoked sooner. Fact Sheet for Healthcare Providers: https://www.[employer]co m/Documents/Xpert%20Xpress%20SARS%20CoV-2/Fact%20Sheets/302-4432%38OXHV-YBC-7%20 HEALTHCARE%20PROVIDERS%20FACT%20SHEET.pdf Fact Sheet for Healthcare Patients: https://www.[employer]/Documents/Xpert%20Xp ress%20SARS%20CoV-2/Fact%20Sheets/3023801%61ADLX-AWI-3%20PATIENT%20FACT%20SHEET .[id number] 03:44:35 Test Item Value Reference Range Interpretation Comments MAGNESIUM (BEAKER) (test code = 1.9 mg/dL 1.6-2.6 627) Music Composer ID - SARAH [id number] 03:44:35 Test Item Value Reference Range Interpretation Comments PHOSPHORUS (BEAKER) (test code = 5.0 mg/dL 2.3-4.7 H 604) Music Composer LARON SMITH WBASIC METABOLIC [id number] 03:44:34 Test Item Value Reference Range Interpretation [...] not appl icable for dialysis patien ts Music Composer LARON SMITH WPT/[id number] 03:35:20 Test Item Value Reference Range Interpretation [...] for patients with mechanical heart valves. SCREEN, [id number] 19:22:08 Test Item Value Reference Range Interpretation Comments TEST URINE (BEAKER) (test Negative Negative code = 583) POC-Glucose [id number] 11:56:01 Test Item Value Reference Range Interpretation Comments POC-Glucose Meter (test 95 mg/dL 70-110 : TE STED AT [facility] code = 1538) 6720 [facility], 770 [address]: Music Composer/Techni federico ID = [id number] for Dewey Arora otne Lab Interpretation (test Normal code = 03957-2) [facility] [id number] 11:56:01 Test Item Value Reference Range Interpretation Comments POC-GLUCOSE METER 95 mg/dL 70-110 : [facility] (BEAKER[facility] (test code = [facility], 1538) [address]: Music Composer/Techni federico ID = [id number] for Marsha Petty POCT-GLUCOSE [id number] 06:17:24 Test Item Value Reference Range Interpretation Comments POC-GLUCOSE METER 160 mg/dL 70-110 H : [facility] 67[facility] (BEAKER) (test code = [facility], 1538) [address]: Music Composer/Techni federico ID = [id number] for HANG ALMAZAN [id number] 04:44:38 Test Item Value Reference Range Interpretation Comments MAGNESIUM (BEAKER) (test code = 1.9 mg/dL 1.6-2.6 627) Music Composer ID - [id number] 04:44:38 Test Item Value Reference Range Interpretation Comments PHOSPHORUS (BEAKER) (test code = 5.3 mg/dL 2.3-4.7 H 604) Music Composer ID - EOOBASIC METABOLIC [id number] 04:44:37 Test Item Value Reference Range Interpretation [...] not appl icable for dialysis patien ts Music Composer ID - EOOPOCT-GLUCOSE [id number] 00:21:01 Test Item Value Reference Range Interpretation Comments POC-GLUCOSE METER 108 mg/dL 70-110 : TESTED A T [facility] 6720 (Olocode) (test code = [facility] Issue [facility], 153) [address]: Music Composer/Techni federico ID = [id number] for SE GELLER HANG POCT-GLUCOSE [id number] 16:05:36 Test Item Value Reference Range Interpretation Comments POC-GLUCOSE METER 120 mg/dL 70-110 H : TESTED A T [facility] 6720 (BEamSTATZ) (test code = [facility] Issue [facility], 1538) [address]: Music Composer/Techni federico ID = [id number] for Terrence rahel Sonali POCT-GLUCOSE [id number] 12:33:49 Test Item Value Reference Range Interpretation Comments POC-GLUCOSE METER 87 mg/dL 70-110 : TESTED A T [facility] 6720 (BEamSTATZ) (test code = [facility] Issue [facility], 1538) [address]: Music Composer/Techni federico ID = [id number] for Sonali Harrison POCT-GLUCOSE [id number] 06:25:50 Test Item Value Reference Range Interpretation Comments POC-GLUCOSE METER 108 mg/dL 70-110 : TESTED A T [facility] 6720 (BEAKER) (test code = PAVAN Thomas [facility], 1538) [address]: Music Composer/Techni federico ID = [id number] for HANG ALMAZAN [id number] 04:51:06 Test Item Value Reference Range Interpretation Comments MAGNESIUM (BEAKER) (test code = 1.6 mg/dL 1.6-2.6 627) Music Composer ID - MAXWELL [id number] 04:51:06 Test Item Value Reference Range Interpretation Comments PHOSPHORUS (BEAKER) (test code = 4.4 mg/dL 2.3-4.7 604) Music Composer ID - MAXWELL BBASIC METABOLIC [id number] 04:51:05 Test Item Value Reference Range Interpretation [...] not appl icable for dialysis patien ts Music Composer ID - MAXWELL BPOCT-GLUCOSE [id number] 00:05:50 Test Item Value Reference Range Interpretation Comments POC-GLUCOSE METER 118 mg/dL 70-110 H : TESTED A T [facility] 6720 (BEAKER) (test code = [facility], 1538) [address]: Music Composer/Techni federico ID = [id number] for HANG ALMAZAN POCT-GLUCOSE [id number] 16:40:48 Test Item Value Reference Range Interpretation Comments POC-GLUCOSE METER 99 mg/dL 70-110 : TESTED A T [facility] 6720 (BEAKER) (test code = [facility], 1538) [address]: Music Composer/Techni federico ID = [id number] for Rosaline Deleon POCT-GLUCOSE [id number] 12:40:11 Test Item Value Reference Range Interpretation Comments POC-GLUCOSE METER 122 mg/dL 70-110 H : TESTED A T [facility] 6720 (BEAKER) (test code = [facility], 1538) [address]: Music Composer/Techni federico ID = [id number] for Sonali Walters POCT-GLUCOSE [id number] 06:26:58 Test Item Value Reference Range Interpretation Comments POC-GLUCOSE METER 93 mg/dL 70-110 : TESTED A T [facility] 6720 (BEAKER) (test code = [facility], 1538) [address]: Music Composer/Techni federico ID = [id number] for MIGUEL ENHANG [id number] 04:39:11 Test Item Value Reference Range Interpretation Comments MAGNESIUM (BEAKER) (test code = 1.7 mg/dL 1.6-2.6 627) Music Composer ID - [id number] 04:39:11 Test Item Value Reference Range Interpretation Comments PHOSPHORUS (BEAKER) (test code = 4.6 mg/dL 2.3-4.7 604) Music Composer ID - MARCOBASIC METABOLIC [id number] 04:39:10 Test Item Value Reference Range Interpretation [...] not appl icable for dialysis patien ts Music Composer ID - MARCOBASIC METABOLIC [id number] 06:51:27 Test Item Value Reference Range Interpretation [...] not appl icable for dialysis patien ts Music Composer ID - [id number] 06:51:27 Test Item Value Reference Range Interpretation Comments MAGNESIUM (BEAKER) (test code = 1.6 mg/dL 1.6-2.6 627) Music Composer ID - [id number] 06:51:27 Test Item Value Reference Range Interpretation Comments PHOSPHORUS (BEAKER) (test code = 5.1 mg/dL 2.3-4.7 H 604) Music Composer ID - MARCOPOC-Glucose [id number] 06:10:39 Test Item Value Reference Range Interpretation Comments POC-Glucose Meter (test 117 mg/dL 70-110 H : TE STED AT [facility] code = 1538) 6720 [facility], 770 30: Music Composer/Techni federico ID = [id number] for MONTEMAYOR DARCI Facundo Lab Interpretation (test Abnormal code = 82819-3) [facility] [id number] 06:10:39 Test Item Value Reference Range Interpretation Comments POC-GLUCOSE METER 117 mg/dL 70-110 H : TESTED A T [facility] 6720 (BEAKER) (test code = [facility], 1538) [address]: Music Composer/Techni federico ID = [id number] for TH OMPSON, BELKIS POCT-GLUCOSE [id number] 00:21:24 Test Item Value Reference Range Interpretation Comments POC-GLUCOSE METER 133 mg/dL 70-110 H : TESTED A T [facility] 6720 (BEAKER) (test code = [facility], 1538) [address]: Music Composer/Techni federico ID = [id number] for TH OMPSON, BELKIS POCT-GLUCOSE [id number] 18:01:01 Test Item Value Reference Range Interpretation Comments POC-GLUCOSE METER 131 mg/dL 70-110 H : TESTED A T [facility] 6720 (BEAKER) (test code = [facility], 153) [address]: Music Composer/Techni federico ID = [id number] for Sa nchez, Yamilith POC-Glucose [id number] 11:46:52 Test Item Value Reference Range Interpretation Comments POC-Glucose Meter (test 86 mg/dL 70-110 : TE STED AT [facility] code = 1538) 67[address] [facility], 770 30: Music Composer/Techni federico ID = [id number] for Micha Gagnon Lab Interpretation (test Normal code = 12274-6) [facility] [id number] 11:46:52 Test Item Value Reference Range Interpretation Comments POC-GLUCOSE METER 86 mg/dL 70-110 : TESTED A T [facility] 6720 (BEAKER) (test code = [facility], 153) [address]: Music Composer/Techni federico ID = [id number] for Sanc hez, Yamilith POCT-GLUCOSE [id number] 06:32:46 Test Item Value Reference Range Interpretation Comments POC-GLUCOSE METER 110 mg/dL 70-110 : [facility] 67[facility] (BEAKER) (test code = [facility], 153) [address]: Music Composer/Techni federico ID = [id number] for HANG GELLER BASIC METABOLIC [id number] 05:38:35 Test Item Value Reference Range Interpretation [...] not appl icable for dialysis patien ts Music Composer ID - [id number] 05:38:35 Test Item Value Reference Range Interpretation Comments MAGNESIUM (BEAKER) (test code = 1.8 mg/dL 1.6-2.6 627) Music Composer ID - [id number] 05:38:35 Test Item Value Reference Range Interpretation Comments PHOSPHORUS (BEAKER) (test code = 3.4 mg/dL 2.3-4.7 604) Music Composer ID - DBCBC W/PLT COUNT & AUTO [id number] 05:14:51 Test Item Value Reference Range Interpretation [...] PERCENT (BEAKER) (test code = 2801) POCT-GLUCOSE [id number] 23:49:04 Test Item Value Reference Range Interpretation Comments POC-GLUCOSE METER 97 mg/dL 70-110 : [facility] 6720 [facility] (test code = [facility], 153) [address]: Music Composer/Techni federico ID = [id number] for SEMI TAMIKO HANG POCT-GLUCOSE [id number] 18:03:27 Test Item Value Reference Range Interpretation Comments POC-GLUCOSE METER 96 mg/dL 70-110 : TESTED A T [facility] 6720 ([facility]) (test code = [facility], 153) [address]: Music Composer/Techni federico ID = [id number] for BELKIS SAMPSON POCT-GLUCOSE [id number] 12:11:29 Test Item Value Reference Range Interpretation Comments POC-GLUCOSE METER 95 mg/dL 70-110 : TESTED A T [facility] 6720 (BEAKER) (test code = [place], 1538) [address]: Music Composer/Techni federico ID = [id number] for BELKIS SAMPSON POCT , [id number] 07:31:00 Test Item Value Reference Range Interpretation Comments Test Urine, POC (test Negative code = 6909815) Control line present?, POC (test Yes code = 2116303) Background clear?, POC (test code Yes = 7140320) UPT Cassette Lot #, POC (test code 943326 = 4371181) UPT Cassette Expiration Date, POC 03/19/2024 (test code = 0411526) [facility] , [id number] 07:31:00 Test Item Value Reference Range Interpretation Comments Test Urine, POC (test Negative code = 9845780) Control line present?, POC (test Yes code = 4288560) Background clear?, POC (test code Yes = 9762016) UPT Cassette Lot #, POC (test code 308564 = 6308329) UPT Cassette Expiration Date, POC 03/19/2024 (test code = 4235582) [facility] , [id number] 07:31:00 Test Item Value Reference Range Interpretation Comments Test Urine, POC (test Negative code = 0452624) Control line present?, POC (test Yes code = 8344602) Background clear?, POC (test code Yes = 7692686) UPT Cassette Lot #, POC (test code 350352 = 6474864) UPT Cassette Expiration Date, POC 03/19/2024 (test code = 3499756) [facility] , [id number] 07:31:00 Test Item Value Reference Range Interpretation Comments Test Urine, POC (test Negative code = 1669910) Control line present?, POC (test Yes code = 4912030) Background clear?, POC (test code Yes = 6798917) UPT Cassette Lot #, POC (test code 897109 = 7348028) UPT Cassette Expiration Date, POC 03/19/2024 (test code = 1030376) [facility]-Glucose [id number] 06:42:59 Test Item Value Reference Range Interpretation Comments POC-Glucose Meter (test 95 mg/dL 70-110 : TE STED AT [facility] code = 1538) [address] [place], 770 30: Music Composer/Techni federico ID = [id number] for Shayy Olivarez Lab Interpretation (test Normal code = 14140-9) [facility]-GLUCOSE [id number] 06:42:59 Test Item Value Reference Range Interpretation Comments POC-GLUCOSE METER 95 mg/dL 70-110 : TESTED A T [facility] 6720 (BEAKER) (test [facility] = [facility], 1538) [address]: Music Composer/Techni federico ID = [id number] for Shayy Costello od [id number] 04:49:08 Test Item Value Reference Range Interpretation Comments PHOSPHORUS (BEAKER) (test code = 4.0 mg/dL 2.3-4.7 604) Music Composer ID - ADMINBASIC METABOLIC [id number] 04:49:07 Test Item Value Reference Range Interpretation [...] not appl icable for dialysis patien ts Music Composer ID - [id number] 04:49:07 Test Item Value Reference Range Interpretation Comments MAGNESIUM (BEAKER) (test code = 1.9 mg/dL 1.6-2.6 627) Music Composer ID - ADMINCBC W/PLT COUNT & AUTO [id number] 04:23:38 Test Item Value Reference Range Interpretation [...] PERCENT (BEAKER) (test code = 2801) POCT-GLUCOSE [id number] 23:51:35 Test Item Value Reference Range Interpretation Comments POC-GLUCOSE METER 115 mg/dL 70-110 H : TESTED A T [facility] 6720 (BEAKER) (test code = [facility], [facility]) [address]: Music Composer/Techni federico ID = [id number] for Kathleen acuña Shayy POCT-GLUCOSE [id number] 18:02:27 Test Item Value Reference Range Interpretation Comments POC-GLUCOSE METER 97 mg/dL 70-110 : TESTED A T [facility] 6720 (BEAKER) (test code = [facility], [facility]) [address]: Music Composer/Techni federico ID = [id number] for JENNI PSON, BELKIS POCT-GLUCOSE [id number] 12:21:50 Test Item Value Reference Range Interpretation Comments POC-GLUCOSE METER 82 mg/dL 70-110 : TESTED A T [facility] 6720 (BEAKER) (test code = [facility], [facility]) [address]: Music Composer/Techni federico ID = [id number] for JENNI PSON, BELKIS POCT-GLUCOSE [id number] 06:39:31 Test Item Value Reference Range Interpretation Comments POC-GLUCOSE METER 82 mg/dL 70-110 : TESTED A T [facility] 6720 (BEAKER) (test code = [facility], [facility]) [address]: Music Composer/Techni federico ID = [id number] for Kathleenmesha logan Shayy [id number] 05:41:53 Test Item Value Reference Range Interpretation Comments MAGNESIUM (BEAKER) (test code = 1.9 mg/dL 1.6-2.6 627) Music Composer ID - [id number] 05:41:53 Test Item Value Reference Range Interpretation Comments PHOSPHORUS (BEAKER) (test code = 4.3 mg/dL 2.3-4.7 604) Music Composer ID - ADMINBASIC METABOLIC [id number] 05:41:52 Test Item Value Reference Range Interpretation [...] not appl icable for dialysis patien ts Music Composer ID - ADMINCBC W/PLT COUNT & AUTO [id number] 05:18:36 Test Item Value Reference Range Interpretation [...] PERCENT (BEAKER) (test code = 2801) POCT-GLUCOSE [id number] 00:09:35 Test Item Value Reference Range Interpretation Comments POC-GLUCOSE METER 160 mg/dL 70-110 H : TESTED A T [facility] 6720 (BEAKER) (test code = [facility] William [facility], 1538) [id number]: Music Composer/Techni federico ID = [id number] for Shayy Bahena POCT-GLUCOSE [id number] 17:21:07 Test Item Value Reference Range Interpretation Comments POC-GLUCOSE METER 75 mg/dL 70-110 : TESTED A T [facility] 6720 (BEAKER) (test code = [facility], 1538) 63280: Music Composer/Techni federico ID = [id number] for Sonali Harrison Screen, [id number] 15:22:58 Test Item Value Reference Range Interpretation Comments Preg Test, Ur (test code = 2112-1) Negative Negative Lab Interpretation (test code = Normal 91715-0) [facility] [id number] 15:22:58 Test Item Value Reference Range Interpretation Comments Preg Test, Ur (test code = 2112-1) Negative Negative Lab Interpretation (test code = Normal 82206-3) [facility], [id number] 15:22:58 Test Item Value Reference Range Interpretation Comments Preg Test, Ur (test code = 2112-1) Negative Negative Lab Interpretation (test code = Normal 23350-1) [facility], [id number] 15:22:58 Test Item Value Reference Range Interpretation Comments Preg Test, Ur (test code = 2112-1) Negative Negative Lab Interpretation (test code = Normal 26061-9) [facility], [id number] 15:22:58 Test Item Value Reference Range Interpretation Comments TEST URINE (BEAKER) (test Negative Negative code = 583) POCT-GLUCOSE [id number] 17:25:51 Test Item Value Reference Range Interpretation Comments POC-GLUCOSE METER 87 mg/dL 70-110 : TESTED A T [facility] 6720 (BEAKER) (test code = [facility], 1538) [address]: Music Composer/Techni federico ID = [id number] for JUDIT Wells MARK POCT-GLUCOSE [id number] 12:49:55 Test Item Value Reference Range Interpretation Comments POC-GLUCOSE METER 93 mg/dL 70-110 : TESTED A T [facility] 6720 (BEAKER) (test code = [facility] [place], 1538) [address]87: Music Composer/Techni federico ID = [id number] for MARK CEBALLOS COMPREHENSIVE METABOLIC [id number] 05:47:37 Test Item Value Reference Range Interpretation [...] not appl icable for dialysis patien ts Music Composer ID - [id number] 05:41:52 Test Item Value Reference Range Interpretation Comments PREALBUMIN (BEAKER) (test code = 26 mg/dL 14-45 586) Music Composer ID - [id number] 05:34:03 Test Item Value Reference Range Interpretation Comments PARTIAL THROMBOPLASTIN TIME 35.5 seconds 22.5-36.0 (BEAKER) (test code = 760) PROTHROMBIN [id number] 05:33:23 Test Item Value Reference Range Interpretation Comments PROTIME (BEAKER) (test code = 13.1 seconds 11.9-14.2 759) INR (BEAKER) (test code = 370) 1.05 <=5.90 RECOMMENDED COUMADIN/WARFARIN INR THERAPY RANGESSTANDARD DOSE: 2.0 - 3.0 Includes: PROPHYLAXIS for venous thrombosis, systemic embolization; TREATMENT for venous thrombosis and/or pulmonary embolus.HIGH RISK: Target INR is 2.5-3.5 for patients with mechanical heart valves.CBC W/PLT COUNT & AUTO [id number] 05:25:30 Test Item Value Reference Range Interpretation [...] code = 2801) HIV-1 ANTIGEN WITH HIV-1/2 [id number] 13:53:09 Test Item Value Reference Range Interpretation Comments HIV-1 ANTIGEN WITH HIV 1\\T\\2 Nonreactive Nonreactive ANTIBODY (2) (BEAKER) (test code = 2586) Music Composer ID - ADMINHEPATITIS C [id number] 13:53:08 Test Item Value Reference Range Interpretation Comments HEPATITIS C ANTIBODY (BEAKER) Nonreactive Nonreactive (test code = 367) Music Composer ID - [id number] 13:38:31 Test Item Value Reference Range Interpretation Comments PREALBUMIN (BEAKER) (test code = 30 mg/dL 45 586) Music Composer ID - ADMINXR ABDOMEN/KUB 1 VIEW [id number] 19:34:[address] [facility] : 1980 Sex: FTECHNIQUE: XR ABDOMEN/KUB 1 VIEW PORTABLEINDICATION: DHT PLacement.COMPARISON: None.FINDINGS:Feedingtube tip projected over the gastric antrum. Nonobstructive bowelgas pattern. Lower pelvis is incompletely included on this examination.Supine radiographs are insensitive for detection of free intraperit onealair.IMPRESSION:Feeding tube tip projected over the gastric antrum.Electronically Signed By: Jarvis Welsh03/03/2023 19:36 CDTWorkstation Name: [id number] CHEST WITH IV [id number] 17:28:20 [facility] 1980 Sex: FCT [...] Signed By: Jude Calero02/25/2023 17:30 CDTWorkstation Name: [id number] NECK SOFT TISSUE WITH IV [id number] 14:07:41 [facility] PABLO : 1980 Sex: FExamination:CT NECK SOFT TISSUE [...] Signed By: Natacha Mondragon02/23/2023 14:09 CDTWorkstation Name: [id number], CHEST, WITH [id number] 07:29:00 Unlisted Reason for Exam - Click Yes and Enter Reason Below->No [facility] CHARLOTTE VILLAJESS SHAH : 1980 Sex: FFINAL REPORT TECHNIQUE: CT [...] Nicholas MDReport Verified Da te/Time: 01/20/2023 07:29:13 [id number] 05:13:48 Test Item Value Reference Range Interpretation Comments MAGNESIUM (BEAKER) (test code = 1.7 mg/dL 1.6-2.6 627) Music Composer ID - [id number] 05:13:48 Test Item Value Reference Range Interpretation Comments PHOSPHORUS (BEAKER) (test code = 4.1 mg/dL 2.3-4.7 604) Music Composer ID - MMBASIC METABOLIC [id number] 05:13:47 Test Item Value Reference Range Interpretation [...] not appl icable for dialysis patien ts Music Composer ID - MMBASIC METABOLIC [id number] 06:42:56 Test Item Value Reference Range Interpretation [...] not appl icable for dialysis patien ts Music Composer ID - [id number] 06:42:56 Test Item Value Reference Range Interpretation Comments MAGNESIUM (BEAKER) (test code = 1.8 mg/dL 1.6-2.6 627) Music Composer ID - [id number] 06:42:56 Test Item Value Reference Range Interpretation Comments PHOSPHORUS (BEAKER) (test code = 4.0 mg/dL 2.3-4.7 604) Music Composer ID - ADMINVITAMIN [id number] 06:39:31 Test Item Value Reference Range Interpretation Comments VITAMIN B12 (BEAKER) (test code = 341 pg/mL 213-816 774) Music Composer ID - ADMINIRON, TIBC, % SAT. (WITHOUT FERRITIN)2023-01-19 06:11:34 Test Item Value Reference Range Interpretation Comments IRON (BEAKER) (test code = 547) 22.0 ug/dL 40.0-160.0 L TOTAL IRON BINDING CAPACITY 394 ug/dL 250-450 (BEAKER) (test code = 769) IRON % SATURATION (2) (BEAKER) 6 % 20-55 L (test code = 2590) Music Composer ID - [id number] 06:40:41 Test Item Value Reference Range Interpretation Comments MAGNESIUM (BEAKER) 1.5 mg/dL 1.6-2.6 L Specimen slightly (test code = 627) hemolyzed Music Composer ID - SARAH [id number] 06:40:41 Test Item Value Reference Range Interpretation Comments PHOSPHORUS (BEAKER) 3.6 mg/dL 2.3-4.7 Specimen slightly (test code = 604) hemolyzed Music Composer ID - SARAH WCOMPREHENSIVE METABOLIC [id number] 06:40:41 Test Item Value Reference Range Interpretation [...] not appl icable for dialysis patien ts Music Composer ID - SARAH WCBC W/PLT COUNT & AUTO [id number] 05:43:39 Test Item Value Reference Range Interpretation [...] PERCENT (BEAKER) (test code = 2801) Ethanol [id number] 02:25:00 Test Item Value Reference Range Interpretation Comments Ethanol (test code 176 mg/dL The pharm acological = ETOH) response to blo od alcohol levels mayvary from individual to i ndividual. The fatal ginna ntrationhas been reported t o be >400mg/dL. Complete Blood Count Auto [id number] 22:56:00 Test Item Value Reference Range Interpretation [...] code = NRBCP) 0 % Comprehensive Metabolic [id number] 22:56:00 Test Item Value Reference Range Interpretation [...] 106 U/L 46-116 N = ALP) Ethanol [id number] 22:56:00 Test Item Value Reference Range Interpretation Comments Ethanol (test code 242 mg/dL The pharm acological = ETOH) response to blo od alcohol levels mayvary from individual to i ndividual. The fatal ginna ntrationhas been reported t o be >400mg/dL. Manual Differential, [id number] 22:56:00 Test Item Value Reference Range Interpretation [...] les (Age >41) 1. 8-10.1 mIU/mL Drug Screen,[id number] 22:52:00 Test Item Value Reference Range Interpretation [...] Negative code = UPROP) Coronavirus PCR, COVID19 [id number] 22:52:00 Test Item Value Reference Range Interpretation Comments Coronavirus PCR, For use under Emergency COVID19 Rapid (test Use Authorization (EUA) code = SARSCOV2) only. Coronavirus PCR, Reference Range: COVID19 Rapid (test Negative code = THOPJZH04.1) SARS-CoV-2 PCR Result: Negative by RT-PCR (test code = SARS-CoV-2 PCR Result:) COVID-19 Status: AsymptomaticUA, Urinalysis Rflx [id number] 22:52:00 Test Item Value Reference Range Interpretation Comments Color,Urine (test code = UCOL) Yellow Yellow Clarity,Urine (test code = Clear Clear UCLAR) Ph, Urine (test code = UPH) 6.0 5.0-9.0 N Specific Gratz,Urine (test 1.020 1.005-1.030 N code = USG) [...] A code = ULEU) UF REFLEXUF REFLEXUrine [id number] 22:52:00 Test Item Value Reference Range Interpretation Comments RBC,Urine (test code = URBCUF) 0-2 /HPF 0-2 WBC,Urine (test code = UWBCUF) 0-5 /HPF 0-5 Epithelial Cell,Urine (test 0-5 /HPF 0-5 code = UECUF) Casts,Urine (test code = 0-5 /LPF None Seen UCASTUF) Bacteria,Urine (test code = None Seen /hpf None Seen UBACTUF) UF REFLEXUF REFLEX
--- NOTE | 2023-05-06 17:34 | ER ---
Nurse's Notes [facility] Name: Brii Garcia Age: 43 yrs Sex: Female : 1980 Arrival Date: 05/06/2023 Time: 16:34 Bed 8 Private MD: Diagnosis: Altered mental status, unspecified;Alcohol abuse with intoxication;Tracheostomy status Presentation: 05/06 16:36 Chief complaint: EMS states: toned out for pt being found face down on the floor iw "unresponsive" by son, pt is awake, oriented X 4, drowsy, EMS states they tried suctioning her and there was some sort of obstruction in trache, pt still smokes cigarettes, denies ETOH or drug use, BS=90. Coronavirus screen: At this time, the client does not indicate any symptoms associated with coronavirus-19. Ebola Screen: Patient negative for fever greater than or equal to 101.5 degrees Fahrenheit, and additional compatible Ebola Virus Disease symptoms Patient denies exposure to infectious person. Patient denies travel to an Ebola-affected area in the 21 days before illness onset. No symptoms or risks identified at this time. Risk Assessment: Do you want to hurt yourself or someone else? Patient reports no desire to harm self or others. Onset of symptoms was May 06, 2023. 16:36 Method Of Arrival: EMS: [facility] iw 16:36 Acuity: ANG 3 iw 18:52 Initial Sepsis Screen: Does the patient meet any 2 criteria? No. Patient's initial iw sepsis screen is negative. Does the patient have a suspected source of infection? No. Patient's initial sepsis screen is negative. Historical: - Allergies: 16:57 No Known Allergies; iw - PMHx: 16:38 Anxiety; Squamous cell carcinoma of tongue; iw - PSHx: 16:38 Carcinoma removed; G tube placement; right leg; total tongue removal; tracheostomy; iw - Social history:: Smoking status: Patient reports the use of cigarette tobacco products. Screenin:18 [facility] ED Fall Risk Assessment (Adult) Score/Fall Risk Level 3 or more points = High iw Risk. Abuse screen: Denies threats or abuse. Denies injuries from another. Nutritional screening: On NPO diet, Difficulty chewing/swallowing? Yes. Tuberculosis screening: No symptoms or risk factors identified. Assessment: 17:00 General: Appears uncomfortable, well developed, Behavior is drowsy, listless. Pain: iw Unable to use pain scale. Neuro: Level of Consciousness is listless. Respiratory: Respiratory effort is even, unlabored, Respiratory pattern is regular. GI: Abdomen is flat, non-distended, PEG tube. Derm: Skin is normal. Musculoskeletal: Range of motion: intact in all extremities. 18:20 Reassessment: pt more awake , assisted to bedside commode. iw 18:40 Reassessment: Patient appears in no apparent distress at this time. pt more alert, iw speaking to son on phone. 18:52 Reassessment: spoke with older son Linda [phone] , he states that he knows why pt iw passed out today, pt is a heavy drinker and she is also prescribed pain and anxiety meds, she mixes her pills with ETOH and she becomes drowsy and lethargic at times, he has even found her having what appeared to be seizure a week or two ago, pt also still smokes cigarettes heavily, son states he has tried to encourage her to quit but she is "hard headed" and she gets angry with him when he tries to tell her anything. Son will be available to pick pt up when discharged. 21:29 Reassessment: Patient appears in no apparent distress at this time. Patient is alert, kl oriented x 3, equal unlabored respirations, skin warm/dry/pink. awakens to verbal stimuli answers appropriately. 21:34 Reassessment: pt discharge awaiting on family for ride. kl Vital Signs: 16:57 BP 108 / 82; Pulse 88; Resp 18; Temp 97; Pulse Ox 100% on R/A; iw 18:18 BP 100 / 83; Pulse 82; Resp 18 S; Pulse Ox 100% on R/A; iw 19:49 BP 105 / 82; Pulse 81; Resp 18; Pulse Ox 100% ; vc1 20:00 BP 108 / 87; Pulse 87; Resp 20; Pulse Ox 100% ; vc1 21:00 BP 97 / 82; Pulse 74; Resp 18; Pulse Ox 98% ; vc1 ED Course: 16:35 Patient arrived in ED. iw 16:38 Triage completed. iw 16:39 Arm band placed on. iw 16:40 Emeka Acevedo MD is Attending Physician. kdr 16:40 Sultana Ann RN is Primary Nurse. iw 18:17 Inserted saline lock: 22 gauge in right hand, using aseptic technique. Blood collected. iw 19:15 Attending Physician role handed off by Emeka Acevedo MD cha 19:15 Ton Neri MD is Attending Physician. [facility] 20:31 Primary Nurse role handed off by Sultana Ann RN 21:02 Chest Single View XRAY In Process Unspecified. EDKS 21:03 Alee Roldan RN is Primary Nurse. vc1 22:40 No provider procedures requiring assistance completed. IV discontinued, intact, vc1 bleeding controlled, No redness/swelling at site. Pressure dressing applied. 22:41 Provided Education on: stop drinking . vc1 Administered Medications: 19:43 Drug: Thiamine IV 100 mg Route: IV; Rate: bolus; Site: right hand; 19:43 Drug: Banana Bag - (NS 0.9% IV 1000 ml, foLIC Acid IVPB 1 mg, Thiamine IV 100 mg, kl Multivitamin IV 1 amp) Route: IV; Rate: 500 ml/hr; Site: right hand; 19:44 Not Given (Other Intervention Used): NS 0.9% IV 1000 ml IV at 1 bolus Per protocol; kl 1000 mL bolus Medication: 18:18 VIS not applicable for this client. iw Outcome: 17:33 Discharge ordered by MD. kdr 20:46 Discharge ordered by MD. [facility] 22:40 Discharged to home via wheelchair, with family. vc1 22:40 Condition: improved 22:40 Discharge instructions given to patient, Instructed on discharge instructions, follow up and referral plans. no drinking with medication, Demonstrated understanding of instructions, follow-up care. 22:42 Patient left the ED. vc1 Signatures: Dispatcher [employer] Tonya Ayala RN RN kl Anderson, Corey, MD MD cha Rittger, Kevin, MD MD [facility] Sultana Ann RN RN iw Marsh, Wendy Alee Roldan RN RN vc1
--- NOTE | 2023-05-06 17:34 | EDPHYS ---
Physician Documentation [facility] Name: Brii Garcia Age: 43 yrs Sex: Female : 1980 Arrival Date: 05/06/2023 Time: 16:34 Bed 8 Private MD: Ton Escobar HPI: 05/06 19:07 This 43 yrs old Black Female presents to ER via EMS with complaints of Altered Mental kdr Status. 19:17 EMS was called to the patient's residence where she had apparently become unresponsive. kdr Patient the patient arouses to stimulation but is very drowsy. Patient's family reports that the patient is taking pain medication and antianxiety medication along with unknown amount of alcohol. Incidentally it was thought that the patient's trach may be blocked. The patient's vital signs would appear to not support an acute tracheostomy did malfunction. Onset: The symptoms/episode began/occurred at an unknown time. Severity of symptoms: At their worst the symptoms were incapacitating. It is unknown whether or not the patient has had similar symptoms in the past. It is unknown whether or not the patient has recently seen a physician. Historical: - Allergies: 16:57 No Known Allergies; iw - PMHx: 16:38 Anxiety; Squamous cell carcinoma of tongue; iw - PSHx: 16:38 Carcinoma removed; G tube placement; right leg; total tongue removal; tracheostomy; iw - Social history:: Smoking status: Patient reports the use of cigarette tobacco products. ROS: 19:17 Constitutional: Patient is uncooperative for exam is very drowsy. Between her kdr limitations with the tracheostomy and her altered mental status, she is not able to give a review of systems Exam: 19:17 Constitutional: This is a well developed, well nourished patient who is awake, alert, kdr and in no acute distress. Head/Face: Normocephalic, atraumatic. 19:17 Neck: Patient has a tracheostomy in place and RT was at bedside attempting to suction out the tracheostomy. Unfortunately they were not able to pass the catheter beyond approximately half an inch into the opening to the trach. As has been previously noted on other visits, the inner cannula is not present. After several attempts of suctioning without results, we discontinued that effort. Patient's vital signs continue to be stable... Vital Signs: 16:57 BP 108 / 82; Pulse 88; Resp 18; Temp 97; Pulse Ox 100% on R/A; iw 18:18 BP 100 / 83; Pulse 82; Resp 18 S; Pulse Ox 100% on R/A; iw 19:49 BP 105 / 82; Pulse 81; Resp 18; Pulse Ox 100% ; vc1 20:00 BP 108 / 87; Pulse 87; Resp 20; Pulse Ox 100% ; vc1 21:00 BP 97 / 82; Pulse 74; Resp 18; Pulse Ox 98% ; vc1 MDM: 17:33 Patient medically screened. kdr 19:17 Data reviewed: vital signs, nurses notes. ED course: I discussed the patient's kdr presentation with regard to her tracheostomy with Dr. Purdy. She indicated that given the fact that her vital signs were stable and there was no apparent threat to her airway, that the patient could be seen in her office on Monday. Dr. Purdy indicated that she would scope the patient if necessary on Monday but otherwise could change out the tracheostomy and correct any issue there on Monday. Patient was advised to return to the emergency department should her airway issues become more significant. 05/06 16:57 Order name: glucometer results - FOR PT WITH NO ID 05/06 18:16 Order name: Acetaminophen; Complete Time: 18:58 05/06 18:16 Order name: Basic Metabolic Panel; Complete Time: 18:58 05/06 18:16 Order name: CBC with Diff; Complete Time: 18:58 05/06 18:16 Order name: ETOH Level; Complete Time: 18:58 05/06 18:16 Order name: Hepatic Function; Complete Time: 18:58 05/06 18:16 Order name: PT-INR; Complete Time: 19:43 05/06 18:16 Order name: Ptt, Activated; Complete Time: 19:43 05/06 18:16 Order name: Salicylate; Complete Time: 18:58 05/06 18:16 Order name: Urine Drug Screen; Complete Time: 18:58 05/06 20:45 Order name: Chest Single View XRAY; Complete Time: 21:39 [facility] 05/06 18:16 Order name: EKG; Complete Time: 18:17 05/06 18:16 Order name: EKG - Nurse/Tech; Complete Time: 18:51 iw 05/06 18:16 Order name: IV Saline Lock; Complete Time: 18:17 iw 05/06 18:16 Order name: Labs collected and sent; Complete Time: 18:51 iw Administered Medications: 19:43 Drug: Thiamine IV 100 mg Route: IV; Rate: bolus; Site: right hand; 19:43 Drug: Banana Bag - (NS 0.9% IV 1000 ml, foLIC Acid IVPB 1 mg, Thiamine IV 100 mg, kl Multivitamin IV 1 amp) Route: IV; Rate: 500 ml/hr; Site: right hand; 19:44 Not Given (Other Intervention Used): NS 0.9% IV 1000 ml IV at 1 bolus Per protocol; kl 1000 mL bolus Disposition Summary: 05/06/23 20:46 Discharge Ordered Location: Home(05/06/23 20:46) anita Problem: new(05/06/23 20:46) anita Symptoms: have improved(05/06/23 20:46) anita Condition: Stable(05/06/23 20:46) anita Diagnosis - Altered mental status, unspecified anita - Alcohol abuse with intoxication anita - Tracheostomy status anita Followup: anita - With: Private Physician - When: 2 - 3 days - Reason: Recheck today's complaints, Continuance of care, Re-evaluation by your physician Discharge Instructions: - Discharge Summary Sheet anita - Alcohol Intoxication anita - How to Clean a Tracheostomy Tube, Adult anita - How to Suction a Tracheostomy Tube, Adult anita - Alcohol Intoxication, Tiya-so-Viyg anita - Alcohol Abuse and Nutrition anita - Tracheostomy Tube Safety and Care, Adult anita - Alcohol Abuse and Dependence Information, Adult anita Forms: - Medication Reconciliation Form anita - Thank You Letter anita - Antibiotic Education anita - Prescription Opioid Use anita - Patient Portal Instructions anita - Leadership Thank You Letter anita Signatures: Dispatcher [employer] Tonya Ayala RN RN kl Anderson, Corey, MD MD cha Rittger, Kevin, MD MD kdr Williams, Irene, RN RN Corrections: (The following items were deleted from the chart) 18:17 17:33 Home kdr iw 18:17 17:33 an ongoing problem kdr iw 18:17 17:33 are unchanged kdr iw 18:17 17:33 Stable kdr iw 18:17 17:33 Tracheostomy tube/cannula dysfunction -stable kdr iw
[2023-05-06 18:32] LABS: Absolute Lymphocytes (CBC) 1.6 K/uL (0.7-4.9); Hematocrit 35.2 % (36.0-45.0); Lymphocytes % 23.7 % (15.3-44.8); MPV 7.5 fL (7.6-11.3); Platelets 335 thou/uL (152-406); RBC Red Blood Cell Count 4.14 M/uL (3.86-4.86)
[2023-05-06 18:54] LABS: Barbiturates NEGATIVE (NEGATIVE); Benzodiazepines NEGATIVE (NEGATIVE); Cocaine NEGATIVE (NEGATIVE); METHAMPHETAM NEGATIVE (NEGATIVE); Methadone NEGATIVE (NEGATIVE); Opiates NEGATIVE (NEGATIVE); Phencyclidine NEGATIVE (NEGATIVE); THC Cannibis NEGATIVE (NEGATIVE)
[2023-05-06 18:54] LABS: ALT/SGPT 14 U/L (13-56); Albumin 3.4 g/dL (3.4-5.0); Alkaline Phosphatase 85 U/L (45-117); BUN Blood Urea Nitrogen 16 mg/dL (7-18); Bicarbonate 25 mEq/L (21-32); Bilirubin Total 0.4 mg/dL (0.2-1.0); Glomerular Filtration Rate 116 ml/min (=/>90); Glucose Level 82 mg/dL (74-106); Sodium Level 136 mEq/L (136-145)
[2023-05-06 18:55] LABS: Potassium 4.8 mEq/L (3.5-5.1)
[2023-05-06 18:56] LABS: AST/SGOT 25 U/L (15-37); Bilirubin Direct < 0.1 mg/dL (0-0.2); Bilirubin Indirect, Calculated ND mg/dL (0.2-0.8)
[2023-05-06 19:06] LABS: Protime INR 0.96
[2023-05-06] MEDS ORDERED: THIAMINE 200 MG/2 ML INJ ONE (19:48)
[2023-05-06] MEDS ORDERED: MULTIVITAMINS 10 ML VIAL (INJ) IV ONE (19:49)
[2023-05-06] MEDS ORDERED: NA CHLORIDE 0.9% 1,000 ML ONE (19:49)
[2023-05-06] MEDS ORDERED: FOLIC ACID 5 MG/ML VIAL ONE (19:49)
--- NOTE | 2023-05-06 21:33 | RAD REPORT ---
EXAM DESCRIPTION: RADChest Single View05/06/2023 9:00 pm CLINICAL HISTORY: DYSPNEA COMPARISON: Chest Single View dated 04/03/2023; Chest Single View dated 03/24/2023; Chest Single View dated 05/06/2020 TECHNIQUE: Portable AP view of the chest. FINDINGS: Tracheostomy tube in place. The lungs are clear. No pneumothorax or effusion. The cardiom ediastinal contours are unremarkable. IMPRESSION: No acute cardiopulmonary process.
[2023-05-06 23:08] VITALS: TEMP 97
[2023-05-06 23:45] VITALS: BP 97/82; O2SAT 98
--- NOTE | 2023-05-09 16:56 | EKG ---
Test Date: 2023-05-06 Test Time: 18:46:21 Cloth Desizing Range Tender: ALEX MEASUREMENT RESULTS: Intervals: Rate: 81 [place]: 210 QRSD: 90 QT: 392 QTc: 455 [place]: P: 70 [place]: 210 QRS: 63 T: 46 INTERPRETIVE STATEMENTS: Sinus rhythm with 1st degree AV block Anteroseptal infarct, age undetermined Abnormal ECG Compared to ECG 04/03/2023 18:09:02 First degree AV block now present Sinus tachycardia no longer present Left ventricular hypertrophy no longer present Myocardial infarct finding still present Electronically Signed On 05-09-23 16:47:17 CDT by Nicholas Steven
== END 2023-05-06 22:42 | disposition home or self-care (01) ==
LOC: ER 16:34
DX: F10.129 Alcohol abuse with intoxication, unspecified (principal); Z93.0 Tracheostomy status; Z72.0 Tobacco use; Z85.810 Personal history of malignant neoplasm of tongue
CPT/HCPCS: 93005; 85025; 80048; 36415; 85610; 82947; 80076; 85730; 80307; 71045; 96375; 96374; 99284; 80143; 80179; 82077; J3411; J7030

== ENCOUNTER 2023-05-07 14:42 | Emergency (ER) | payer OTHER ==
--- OUTSIDE RECORDS SUMMARY | 2023-05-07 14:47 | XMS REPORT | Continuity of Care Document ---
:1980 Author Organization [facility] t Address [address] [place] [address] Care Team Providers Name Role Phone SUSANNA WICK Attending Clinician Unavailable YENIFER MALLOY Attending Clinician Unavailable CARLOS GRAJEDA Attending Clinician Unavailable Carlos Grajeda MD Attending Clinician [phone] Jose Snyder MD Attending Clinician Demetrius Dugan MD Attending Clinician Yash Fournier MD Attending Clinician [phone] Alvin Alcala Attending Clinician Unavailable Maryann Mclean MD Attending Clinician Susanna Wick MD Attending Clinician Abdoulaye Johnson MD Attending Clinician ABDOULAYE JOHNSON Attending Clinician Unavailable Eloisa XIE, Gypsy Attending Clinician Unavailable Yenifer Malloy Attending Clinician Aruna Packer LMSW Attending Clinician Unavailable Prabha Narvaez Attending Clinician [phone] PRABHA WINN Attending Clinician Unavailable Yolanda KHALIL, Mindy Cobb Attending Clinician [phone] Attending Clinician Unavailable Judit Lau Attending Clinician Meño KHALIL, Mariaa Vitale Attending Clinician Kimberli Sierra MD Attending Clinician KIMBERLI SIERRA Attending Clinician Unavailable Chika Rosa Attending Clinician Unavailable SUSANNA WICK Admitting Clinician Unavailable JUDIT LAU Admitting Clinician Unavailable Payers Payer Name Policy Type Policy Number Effective Date Expiration Date urbano [facility] [place] [id number] 2023 [facility] 00:00:00 MEDICAID OF [place] [id number] 2022 00:00:00 Problems Condition Condition Condition Status Onset Resolution Last Treating Co mments Source Name Details Category Date Date Treatment Clinician Date 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 Oral phase Oral phase Disease Recurre [facility] dysphagia dysphagia nce 5-17 [facility] 00:00: Medical 00 [place] Oropharyng Oropharyng Disease Active [facility] eal cancer eal cancer -17 [facility]a k[facility] 00:00: Medical 00 Center Allergies, [...] NO KNOWN Allergy Active [facility] Family History Family Member Diagnosis Comments Start Date Stop Date Source Natural father Lung cancer [facility] Maternal aunt Cancer [facility] Maternal uncle Prostate cancer [facility] Maternal uncle Kidney failure [facility] Natural mother Stomach cancer [facility] Social History Social Habit Start Date Stop Date Quantity Comments Source History of tobacco Cigarette Smoker [facility] use [facility] History [facility]-Med Medical Center Alcohol intake 2023-03-08 2023-03-08 Ex-drinker [facility] 00:00:00 00:00:00 (finding) Medical Center Exposure to 2023-02-22 2023-03-04 Not sure [facility] SARS-CoV-2 (event) 00:00:00 02:06:00 Medica l Center History [facility] 2023-03-04 2023-03-[address] [facility] Transport Med 00:00:00 00:00:[address] History [facility] 2023-03-04 2023-03-04 [address] [facility] Housing Unable to 00:00:00 00:00:00 Medical Center Pay History [facility] 2023-03-04 2023-03-04 [address] [facility] Housing Places 00:00:00 00:00:00 Medical Ce nter Lived History [facility] 2023-03-04 2023-03-04 [address] [facility] Housing Homeless 00:00:00 00:00:00 Medical [...] Lukes 00:00:00 00:00:00 [facility] Sex Assigned At [birth year] F [facility] 00:00:00 00:00:00 Medical Center Smoking Status Start Date Stop Date Source Smokes tobacco daily 2023-02-23 00:00:[address] [facility] Medications Ordered Filled Start Stop Current Ordering Indication Dosage Frequency Signature Comments Components Source Medication Medication Date Date Medication? Clinician (SIG) Name Name morphine 10 2022- No 5mg Take 2.[address] mg/5 mL 03-10 07-07 mLs (5 mg [facility] solution 16:00: 00:00 total) by Med ical 41 :00 mouth Center every 4 (four) hours as needed for Pain. methadone Yes Cancer 2mg Take [address] (DOLOPHINE) -07 associated (2 mg L ukes 5 mg/5 mL 00:00: pain total) by Med ical solution 00 mouth Center every 12 (twelve) hours. morphine 10 0 Yes 5mg Take 2.[address] mg/5 mL 7-01 mLs (5 mg [facility] solution 07:57: total) by [facility] mouth Center every 4 (four) hours as needed for Pain. morphine 10 0 Yes 5mg Take 2.[address] mg/5 mL 7-01 mLs (5 mg [facility] solution 07:57: total) by [facility] mouth Center every 4 (four) hours as needed for Pain. morphine 10 0 Yes 5mg Take 2.[address] mg/5 mL 7-01 mLs (5 mg [facility] solution 07:57: total) by [facility] 54 mouth Center every 4 (four) hours as needed for Pain. ondansetron Yes 8mg Take [address] [facility] [...] (5 mg [facility]ukes solution 13:57: total) by [facility] 48 mouth Center every 4 (four) hours as needed for Pain. miscellaneo Yes Oral [facility] 6-24 suction [facility] supply Misc 00:00: machine. Nv dical 00 Center miscellaneo [address] [facility] 6-24 suction [facility] supply Misc 00:00: machine. Nv dical 00 Center miscellaneo [address] [facility] 6-24 suction [facility] supply Misc 00:00: machine. Me dical 00 Center miscellaneo Yes Oral [facility] 6-24 suction [facility] supply Misc 00:00: machine. Me dical 00 Center miscellaneo [address] [facility] 6-24 suction [facility] supply Misc 00:00: machine. Nv dical 00 Center methadone Yes Cancer 2mg Take [address] (DOLOPHINE) 6-23 associated (2 mg L ukes 5 mg/5 mL 00:00: pain total) by [facility] ical solution 00 mouth Center every 12 (twelve) hours. lactulose Yes 20g [id number] Take [address] (CHRONULAC) 6-23 [id number] mLs (20 g [facility]ukes 10 gram/15 00:00: 3D total) by Nv dical mL solution 00 mouth 3 Cente [...] 12 (twelve) hours. lactulose 2023-0 Yes 20g Q.[id number] Take [address] (CHRONULAC) 6-23 [id number] mLs (20 g Lukes 10 gram/15 00:00: 3D total) by Nv dical mL solution 00 mouth 3 Cente [...] 12 (twelve) hours. lactulose 2023-0 Yes 20g Q.[id number] Take [address] (CHRONULAC) 6-23 [id number] mLs (20 g [facility]ukes 10 gram/15 00:00: 3D total) by Nv dical mL solution 00 mouth 3 Cente [...] 12 (twelve) hours. lactulose 2023-0 Yes 20g Q.[id number] Take [address] (CHRONULAC) 6-23 [id number] mLs (20 g Lukes 10 gram/15 00:00: 3D total) by Nv dical mL solution 00 mouth 3 Cente r (three) times daily. viscous 2022-0 Yes 5mL Swish and [facility] t lidocaine 6-23 spit 5 mLs Luke s 2% (VISCOUS 00:00: every 6 Med ical LIDOCAINE) 00 (six) Center 2 % Soln hours as mucosal needed. solution methadone 0 Yes Cancer 2mg Take [address] (DOLOPHINE) 6 associated (2 mg L ukes 5 mg/5 mL 00:00: pain total) by Med ical solution 00 mouth Center every 12 (twelve) hours. lactulose 0 Yes 20g [id number] Take [address] (CHRONULAC) 6- [id number] mLs (20 g [facility]ukes 10 gram/15 00:00: 3D total) by Nv dical mL solution 00 mouth 3 Cente r (three) times daily. viscous 0 Yes 5mL Swish and [facility] t lidocaine 6-23 spit 5 mLs Luke s 2% (VISCOUS 00:00: every 6 Med ical LIDOCAINE) 00 (six) Center 2 % Soln hours as mucosal needed. solution lactulose 0 Yes 20g [id number] Take [address] (CHRONULAC) 6- [id number] mLs (20 g Lukes 10 gram/15 00:00: 3D total) by Nv dical mL solution 00 mouth 3 Cente [...] (5 mg Lukes solution 08:23: total) by [facility] jasmina 13 mouth Center every 4 (four) [...] pain) for up to 30 days. sennosides 2022-0 2022- Yes 10mL QD Take [address] (SENOKOT) 6- 07-22 mLs by Lukes 8.8 mg/5 mL [...] QD Take [address] (SENOKOT) 6- 07-22 mLs by Lukes 8.8 mg/5 mL 00:00: 23:59 mouth Medi jasmina syrup 00 :00 nightly Center for 30 days. gabapentin 2022-2022- Yes 300mg Take [address] [...] mg/5 mL 00:00: 00:00 total) by Medi jsamina solution 00 :00 mouth Center every 8 [...] Take [address] (ZOFRAN) 4 -22 06-22 mLs (8 mg Malcolm es mg/5 [...] St -acetaminop 5-19 05-19 mouth Lukes hen (HILGER 09:54: 00:00 every 6 Med ical 7.5-325) 24 :00 (six) Center 7.5-325 mg hours as per tablet needed for Pain (kimberlyn pain) Liquid form. HYDROcodone 2022- No Take by I St -acetaminop 5-19 05-19 mouth [facility]ukes hen (HILGER 09:54: 00:00 every 6 Med ical 7.5-325) 24 :00 (six) Center 7.5-325 mg hours as per tablet needed for Pain (kimberlyn pain) Liquid form. HYDROcodone 2022- No Take by I St -acetaminop 5-19 05-19 mouth [facility]ukes hen (HILGER 09:54: 00:00 every 6 Med ical 7.5-325) 24 :00 (six) Center 7.5-325 mg hours as per tablet needed for Pain (kimberlyn pain) Liquid form. HYDROcodone 2022- No Take by I St -acetaminop 5-19 05-19 mouth [facility]ukes hen (HILGER 09:54: 00:00 every 6 Med ical 7.5-325) 24 :00 (six) Center 7.5-325 mg hours as per tablet needed for Pain (kimberlyn pain) Liquid form. HYDROcodone 2022- No Take by I St -acetaminop 5-19 05-19 mouth [facility]ukes hen (HILGER 09:54: 00:00 every 6 Med ical 7.5-325) 24 :00 (six) Center 7.5-325 mg hours as per tablet needed for Pain (kimberlyn pain) Liquid form. HYDROcodone 2022- No Take by I St -acetaminop 5-19 05-19 mouth [facility] 09:[facility]: 00:00 every 6 Med ical 7.5-325) [...] for Pain (kimberlyn pain) Liquid form. HYDROcodone 0 2022- No Take by I St -acetaminop 5-19 05-19 mouth [facility]ukes hen (NORCO 09:54: 00:00 every 6 Med ical 7.5-325) 24 :00 (six) Center 7.5-325 mg hours as per tablet needed for Pain (kimberlyn pain) Liquid form. HYDROcodone 0 2022- No Take by I St -acetaminop [...] (Vitamin morning. B-12) 5,000 mcg/mL Drop cyanocobala 2022-0 Yes 1[drp] QD Place 1 C HI [...] vitamin 00:00: the tongue Medi jasmina B-12, in the Center (Vitamin morning. B-12) 5,000 [...] Lukes vitamin 00:00: the tongue Medi jasmina B, 00 in the Center (Vitamin morning. B-12) 5,000 mcg/mL Drop ferrous 2022-2023- No 300mg QD Take 5 [...] No 8mg Take [address] (ZOFRAN-ODT 01-20-18 [...] Take 0.[address] 100 mg/5 mL 19 05-19 mLs (10 mg L ukes (20 mg/mL) 00:00: 00:00 total) by Joao rankin 00 :00 mouth Center d solution every 4 (four) hours as needed for Pain for up to 30 days. Max Daily Amount: 60 mg HYDROcodone Yes Take by [facility] -acetaminop -17 mouth [facility]ukes hen (NORCO 04:39: every 6 [...] kg Heart rate 2023-03-13 11:21:03 77 /min [facility] Body temperature 2023-03-13 11:21:03 36.78 Margi [facility] Respiratory rate 2023-03-13 11:21:03 17 /min [facility] Oxygen saturation in 2023-03-13 11:21:03 98 /min [facility] Arterial blood by Medical Ce nter Pulse oximetry Systolic blood 2023-03-13 11:20:30 97 mm[Hg] [facility] Diastolic blood 2023-03-13 11:20:30 68 mm[Hg] [facility] Heart rate 2023-03-10 07:45:31 75 /min [facility] Respiratory rate 2023-03-10 07:45:31 16 /min [facility] Oxygen saturation in 2023-03-10 07:45:31 100 /min [facility] Arterial blood by Medical Ce nter Pulse oximetry Body temperature 2023-03-10 07:44:56 36.94 Margi [facility] Systolic blood 2023-03-10 07:44:15 119 mm[Hg] [facility] Diastolic blood 2023-03-10 07:44:15 86 mm[Hg] [facility] Heart rate 2023-03-09 11:34:32 74 /min [facility] Respiratory rate 2023-03-09 11:34:32 18 /min [facility] Oxygen saturation in 2023-03-09 11:34:32 99 /min [facility] Arterial blood by Medical Ce nter Pulse oximetry Body temperature 2023-03-09 11:34:02 36.61 Margi [facility] Systolic blood 2023-03-09 11:33:45 124 mm[Hg] [facility] Diastolic blood 2023-03-09 11:33:45 90 mm[Hg] [facility] Systolic blood 2023-03-08 10:30:00 136 mm[Hg] [facility] Diastolic blood 2023-03-08 10:30:00 100 mm[Hg] [facility] Heart rate 2023-03-08 10:30:00 64 /min [facility] Respiratory rate 2023-03-08 10:30:00 11 /min [facility] Oxygen saturation in 2023-03-08 10:30:00 99 /min [facility] Arterial blood by Medical Ce nter Pulse oximetry Body temperature 2023-03-08 09:54:00 36 Margi [facility] Body height 2023-03-03 12:40:00 152.4 cm [facility] Body weight 2023-03-03 12:40:00 54.885 kg [facility] BMI 2023-03-03 12:40:00 23.63 kg/m2 [facility] Body height 2023-02-28 14:00:00 154.9 cm [facility] Body weight 2023-02-28 14:00:00 56.246 kg [facility] BMI 2023-02-28 14:00:00 23.43 kg/m2 [facility] Systolic blood 2023-02-24 08:13:00 120 mm[Hg] [facility] Diastolic blood 2023-02-24 08:13:00 97 mm[Hg] [facility] Heart rate 2023-02-24 08:13:00 88 /min [facility] Body height 2023-02-24 08:13:00 154.9 cm [facility] Body weight 2023-02-24 08:13:00 56.337 kg [facility] BMI 2023-02-24 08:13:00 23.47 kg/m2 [facility] Oxygen saturation in 2023-02-24 08:13:00 100 /min [facility] Arterial blood by Medical Ce nter Pulse oximetry Body temperature 2023-02-23 08:02:00 37 Margi [facility] Systolic blood 2023-01-20 07:55:00 136 mm[Hg] [facility] Diastolic blood 2023-01-20 07:55:00 82 mm[Hg] [facility] Heart rate 2023-01-20 07:55:00 71 /min [facility] Body temperature 2023-01-20 07:55:00 36.44 Margi [facility] Respiratory rate 2023-01-20 07:55:00 18 /min [facility] Oxygen saturation in 2023-01-20 07:55:00 100 /min [facility] Arterial blood by Medical Ce nter Pulse oximetry Systolic blood 2023-01-19 12:52:00 128 mm[Hg] [facility] Diastolic blood 2023-01-19 12:52:00 85 mm[Hg] [facility] Heart rate 2023-01-19 12:52:00 66 /min [facility] Body temperature 2023-01-19 12:52:00 36.72 Margi [facility] Respiratory rate 2023-01-19 12:52:00 18 /min [facility] Oxygen saturation in 2023-01-19 12:52:00 100 /min [facility] Arterial blood by Medical Ce nter Pulse oximetry Body height 2023-01-18 04:00:00 154.9 cm [facility] Body weight 2023-01-18 04:00:00 57.561 kg [facility] BMI 2023-01-18 04:00:00 23.98 kg/m2 [facility] Procedures Procedure Date / Time Performing Clinician Source Performed GLOSSECTOMY, TOTAL 2023-03-14 07:30:00 Susanna Wick [place] DISSECTION, NECK, RADICAL 2023-03-14 07:30:00 Susanna Wick [facility] SKIN FLAP PROCEDURE, 2023-03-14 07:30:00 Vinh Alcocer [facility] FREE FLAP PROCEDURE, 2023-03-14 07:30:[address] [facility] LOWER EXTREMITY, WITH Medical Ce ntave MICROVASCULAR ANASTOMOSIS FLAP PROCEDURE, MUSCLE, 2023-03-14 07:30:[address] [facility] CREATION, FLAP, ROTATION 2023-03-14 07:30:00 Vinh Alcocer [facility] POCT-GLUCOSE METER 2023-03-13 11:44:00 [facility] 2023-03-13 06:05:00 Susanna Wick [facility] BASIC METABOLIC PANEL 2023-03-13 03:53:00 Cayden [facility] MAGNESIUM 2023-03-13 03:53:00 Cayden [facility] PHOSPHORUS 2023-03-13 03:53:00 Cayden [facility] POCT-GLUCOSE METER 2023-03-13 00:08:00 Susanna Wick [facility] POCT-GLUCOSE METER 2023-03-12 15:54:00 Susanna Wick [facility] POCT-GLUCOSE METER 2023-03-12 12:22:00 Susanna Wick [facility] POCT-GLUCOSE METER 2023-03-12 06:14:00 Susanna Wick [facility] BASIC METABOLIC PANEL 2023-03-12 03:31:00 [facility] MAGNESIUM 2023-03-12 03:31:00 Cayden [facility] PHOSPHORUS 2023-03-12 03:31:00 Cayden [facility] POCT-GLUCOSE METER 2023-03-11 23:54:00 Susanna Wick [facility] POCT-GLUCOSE METER 2023-03-11 16:29:00 Susanna Wick [facility] POCT-GLUCOSE METER 2023-03-11 12:28:00 Debra [facility] POCT-GLUCOSE METER 2023-03-11 06:03:00 Susanna Wick [facility] BASIC METABOLIC PANEL 2023-03-11 04:02:00 [facility] MAGNESIUM 2023-03-11 04:02:00 Cayden [facility] PHOSPHORUS 2023-03-11 04:02:00 Cayden [facility] BASIC METABOLIC PANEL 2023-03-10 06:07:00 [facility]den [facility] MAGNESIUM 2023-03-10 06:07:00 [facility] [facility] PHOSPHORUS 2023-03-10 06:07:00 [facility] 2023-03-10 05:58:00 Debra [facility] [place] POCT-GLUCOSE METER 2023-03-09 23:19:00 Debra [facility] [place] POCT-GLUCOSE METER 2023-03-09 17:49:00 Debra [facility] POCT-GLUCOSE METER 2023-03-09 11:35:00 Debra [facility] [place] POCT-GLUCOSE METER 2023-03-09 06:08:00 Debra [facility] CBC W/PLT COUNT & AUTO 2023-03-09 04:54:00 Cayden [facility] BASIC METABOLIC PANEL 2023-03-09 04:54:00 [facility]den [facility] MAGNESIUM 2023-03-09 04:54:00 [facility] [facility] PHOSPHORUS 2023-03-09 04:54:00 [facility]UAL 2023-03-09 04:54:00 Cayden [facility] CBC W/PLT COUNT & AUTO 2023-03-09 04:54:00 Cayden [facility] POCT-GLUCOSE METER 2023-03-08 23:36:00 Debra [facility] POCT-GLUCOSE METER 2023-03-08 17:43:00 Debra [facility] POCT-GLUCOSE METER 2023-03-08 11:29:00 [facility] INSERTION, GASTROSTOMY 2023-03-08 07:55:00 [facility] LAPAROSCOPIC Medical Cente r POCT , URINE 2023-03-08 07:31:00 Sofie Blackwood [facility] TYPE AND SCREEN, 2023-03-08 07:28:[address] [facility] POCT-GLUCOSE METER 2023-03-08 05:51:00 Debra [facility] CBC W/PLT COUNT & AUTO 2023-03-08 03:29[facility] 2023-03-08 03:29[facility]00 [facility] 2023-03-08 03:[facility]00 [facility] 2023-03-08 03:29:00 [facility] CBC W/PLT COUNT & AUTO 2023-03-08 03:29:00 Lito Hernandez CH, I [facility] DIFFERENTIAL [facility] POCT-GLUCOSE METER 2023-03-07 23:30:00 Debra [facility] POCT-GLUCOSE METER 2023-03-07 17:42:00 Debra [facility] POCT-GLUCOSE METER 2023-03-07 12:05:00 Debra [facility] POCT-GLUCOSE METER 2023-03-07 06:28:00 Debra [facility] CBC W/PLT COUNT & AUTO 2023-03-07 04:54:00 [facility]den[facility] BASIC METABOLIC PANEL 2023-03-07 04:54:00 [facility]UM 2023-03-07 04:54:00 Cayden [facility] PHOSPHORUS 2023-03-07 04:54:00 Kevinpalomacorbin [facility] CBC W/PLT COUNT & AUTO 2023-03-07 04:54:00 Lito Hernandez CH, I [facility] DIFFERENTIAL [facility] POCT-GLUCOSE METER 2023-03-06 23:58:00 Susanna Wick [facility] POCT-GLUCOSE METER 2023-03-06 17:09:00 [facility] SCREEN, URINE 2023-03-06 14:44:00 Jose Snyder [facility] POCT-GLUCOSE METER 2023-03-05 16:54:00 De[facility] POCT-GLUCOSE METER 2023-03-05 12:26:00 Susanna Wick [facility] CBC W/PLT COUNT & AUTO 2023-03-05 05:07:00 Chadd Clemente [facility] COMPREHENSIVE METABOLIC 2023-03-05 05:07:00 Chadd Clemente [facility] PANEL [facility] PREALBUMIN 2023-03-05 05:07:[address] [facility] APTT 2023-03-05 05:07:[address] [facility] PROTHROMBIN TIME/INR 2023-03-05 05:07:00 Chadd Clemente [facility] CBC W/PLT COUNT & AUTO 2023-03-05 05:07:00 Chadd Clemente [facility] HC LAB HIV-1 AG W/HIV-1&2 2023-03-04 12:31:00 Fall, Nakul Justice [facility] HEPATITIS C ANTIBODY 2023-03-04 12:31:00 Fall, Nakul Justice [facility] PREALBUMIN 2023-03-04 12:31:00 Fall, Nakul Justice [facility] XR ABDOMEN/KUB 1 VIEW 2023-03-03 18:48:00 Rick Ball [facility] LARYNGOSCOPY, WITH BIOPSY 2023-03-03 16:15:00 Susanna Wick [facility] LARYNGOSCOPY, WITH BIOPSY 2023-03-03 14:48:00 Susanna Wick [facility] POCT , URINE 2023-03-03 13:08:00 Maryann Mclean [facility] CT CHEST WITH IV CONTRAST 2023-02-23 12:27:50 Prabha Winn [facility] CT NECK SOFT TISSUE WITH 2023-02-23 12:27:31 Prabha Winn [facility] I [facility] IV CONTRAST [facility] XT NORMAL BLOOD (TEMPUS) 2023-02-23 10:54:00 Carlos Grajeda [facility] BASIC METABOLIC PANEL 2023-01-20 04:17:00 Mariaa Wilder [facility] MAGNESIUM 2023-01-20 04:17:00 Mariaa Wilder [facility] PHOSPHORUS 2023-01-20 04:17:00 [facility] BASIC METABOLIC PANEL 2023-01-19 05:08:00 Mariaa Wilder [facility] MAGNESIUM 2023-01-19 05:08:00 Mariaa Wilder [facility] PHOSPHORUS 2023-01-19 05:08:00 [facility] VITAMIN B12 2023-01-19 05:08:00 [facility] IRON, TIBC, % SAT. 2023-01-19 05:08:00 Mariaa Wilder [facility] (WITHOUT FERRITIN) Medical Cente r CT CHEST WITH IV CONTRAST 2023-01-18 14:51:00 Cesia Lau [facility] CBC W/PLT COUNT & AUTO 2023-01-18 05:18:00 [address]it [facility] [facility] COMPREHENSIVE METABOLIC 2023-01-18 05:18:[address] [facility] MAGNESIUM 2023-01-18 05:18:00 Heavenly Laujammie [facility] PHOSPHORUS 2023-01-18 05:18:00 Judit Lau [facility] CBC W/PLT COUNT & AUTO 2023-01-18 05:18:[address] [facility] Plan of Care Planned Activity Planned [...] Medica l Center cervix (procedure) [code = 379828559] Future Scheduled 2019-04-[address] [facility] Test 00:00:00 malignant neoplasm of Medica l Center cervix (procedure) [code = 678045831] Future Scheduled 2019-04-[address] [facility] [facility] Test 00:00:00 malignant neoplasm of Medica l Center cervix (procedure) [code = 958306742] Future Scheduled 2019-04-[address] [facility] Test 00:00:00 malignant neoplasm of Medica l Center cervix (procedure) [code = 346750449] Future Scheduled 2019-04-[address] [facility] Test 00:00:00 malignant neoplasm of Medica l Center cervix (procedure) [code = 335294585] Future Scheduled 2019-04-[address] [facility] [facility] Test 00:00:00 malignant neoplasm of Medica l Center cervix (procedure) [code = 688572970] Future Scheduled [address] [facility] Test 00:00:00 malignant neoplasm of Medica l Center cervix (procedure) [code = 937370668] Future Scheduled [address] [facility] Test 00:00:00 malignant neoplasm of Medica l Center cervix (procedure) [code = 452555309] Future Scheduled [address] [facility] Test 00:00:00 malignant neoplasm of Medica l Center cervix (procedure) [code = 711380040] Future Scheduled [address] [facility] Test 00:00:00 malignant neoplasm of Medica l Center cervix (procedure) [code = 249167396] Future Scheduled [address] [facility] Test 00:00:00 malignant neoplasm of Medica l Center cervix (procedure) [code = 453940863] Future Scheduled [address] Test 00:00:00 malignant neoplasm of Medica l Center cervix (procedure) [code = 620863746] Future Scheduled [address] [facility]00 malignant neoplasm of [facility]ica [facility] Center cervix (procedure) [code = 712169993] Future Scheduled [address] [facility] 00[facility]00:00 malignant neoplasm of [facility] cervix (procedure) [code = 515761813] Future Scheduled [address] [facility] (procedure) [code = Medical Center 18881941] Future Scheduled [address] [facility] 00:00:00 (procedure) [code = [facility] 44099784] Future Scheduled [address] [facility] Test 00:00:00 (procedure) [code = [facility] 09708699] Future Scheduled [address] [facility] 00:00:00 (procedure) [code = Medical Center 87919592] Future Scheduled [address] [facility] 00:00:00 (procedure) [code = Medical Center 50364777] Future Scheduled [address] [facility] 00:00:00 (procedure) [code = Medical Center 80989594] Future Scheduled [address] [facility] 00:00:00 (procedure) [code = [facility] 70198472] Future Scheduled [address] [facility] 00:00:00 (procedure) [code = Medical Center 52590597] Future Scheduled [address] [facility] 00:00:00 (procedure) [code = Medical Center 58302156] Future Scheduled [address] [facility] 00:00:00 (procedure) [code = Medical Center 13416994] Future Scheduled [address] [facility] 00:00:00 (procedure) [code = Medical Center 54762750] Future Scheduled [address] [facility] 00:00:00 (procedure) [code = Medical Center 41511577] Future Scheduled 2001 DTAP/TDAP/TD VACCINES CH I [...] Type Clinicians Facility Department ID 2023-03-09 Outpatient [facility] Surgery [id number] [facility] 08:48:52 2023-03-03 [facility] [id number] [facility] 18:30:29 SUSANNA 2023-06-05 2023-06-05 Outpatient EL [facility] [id number] [facility] 00:00:00 00:00:00 2023-05-05 2023-05-05 Outpatient EL [facility] [id number] [facility] 06:48:56 06:48:56 2023-04-12 2023-04-12 Outpatient BHAVIN MALLOY [facility] [id number] [facility] 00:00:00 00:00:00 YENIFER 2023-04-12 2023-04-12 Outpatient BHAVIN GRAJEDA [facility] [id number] [facility] 00:00:00 00:00:00 CARLOS 2023-04-04 2023-04-04 Outpatient [facility] [id number] [facility] 06:46:17 06:46:17 2023-03-03 2023-03-22 Inpatient BHAVIN WICK [facility] Surgery [id number] [facility] 12:21:00 18:52:00 SUSANNA 2023-03-13 2023-03-13 Outpatient BHAVIN GRAJEDA [facility] [id number] [facility] 00:00:00 00:00:00 CARLOS 2023-03-10 2023-03-10 [facility] Nicci [facility] [id number] [facility] 12:00:00 12:00:00 Encounter Carlos [facility] 2023-03-10 2023-03-10 Outpatient BHAVIN GRAJEDA [facility] [id number] [facility] 00:00:00 00:00:00 CARLOS 2023-03-10 2023-03-10 Outpatient YOLANDE MONET SLE [id number] [facility] 00:00:00 00:00:00 YENIFER 2023-03-08 2023-03-[address] [facility] [id number] 08:00:00 10:03:00 [facility] 2023-03-08 2023-03-[address] [facility] [id number] 07:56:00 09:55:00 Event Yash Fournier [facility] 2023-03-05 2023-03-[address] [facility] [id number] 19:31:18 19:31:18 Event [facility] 2023-03-04 2023-03-04 Travel [facility] [id number] [facility] 00:00:00 [facility] 2023-03-03 2023-03-[address] [facility] [id number] 16:11:00 17:19:00 Event Maryann [facility] 2023-03-03 2023-03-[address] [facility] [id number] 13:48:00 15:23:00 [facility] 2023-03-01 2023-03-01 Procedure Abdoulaye Johnson [facility] [id number] 14:00:00 15:00:00 visit Susanna Wick [facility] 2023-03-01 2023-03-01 Travel [facility] [id number] [facility] 00:[facility]00 00:00:00 [facility] 2023-02-28 2023-02-28 Outpatient YOLANDE CONTRERAS [facility] [id number] SLE 11:39:48 11:39:48 ABDOULAYE 2023-02-28 2023-02-28 Outpatient BHAVIN [facility] [id number] [facility] 00:00:00 00:00:00 2023-02-28 2023-02-[address] [facility] [id number] 00:00:00 00:00:00 [facility] 2023-02-28 2023-02-28 Travel [facility] [id number] [facility] 00:[facility]00 00:00:00 [facility] 2023-02-24 2023-02-[address] [facility] [id number] 08:00:00 10:46:55 Visit [facility] 2023-02-24 2023-02-24 Outpatient YOLANDE MONET SLE [id number] [facility]H 07:59:33 10:46:55 [place] 2023-02-24 2023-02-[address] [facility] [id number] 00:00[facility]00 00[facility]00 [facility] 2023-02-24 2023-02-[address] [facility] [id number] 00:00:00 00:00:00 [facility] 2023-02-23 2023-02-23 Hospital [facility], [facility] [id number] 11:38:18 23:59:00 Encounter [facility] 2023-02-23 2023-02-23 Outpatient BHAVIN WINN SLEDarryn SLE [id number] SLEH 11:38:18 23:59:00 [facility] 2023-02-23 2023-02-23 [facility] Lostnh, [facility] [id number] 11:37:51 11:37:51 Encounter [facility] 2023-02-23 2023-02-23 Outpatient BHAVIN WINN SLEDarryn [facility] [id number] [facility] 11:37:51 11:37:51 [facility] 2023-02-23 2023-02-[address] [facility] [id number] 08:00:00 11:23:03 Visit [facility] 2023-02-23 2023-02-23 Outpatient EL NICCI, [facility] [id number] SLE 07:59:25 11:23:03 CARLOS 2023-02-23 2023-02-23 Treatment Nicci, [facility] [id number] 10:35:00 10:50:00 [facility] 2023-02-23 2023-02-23 Outpatient EL [facility] [id number] SLE 10:44:57 10:44:57 2023-02-23 2023-02-23 Outpatient EL [facility] [id number] SLE 00:00:00 00:00:00 2023-02-23 2023-02-[address] [facility] [id number] 00:00:00 00:00:00 Only [facility] 2023-02-23 2023-02-[address] [facility] [id number] 00:00:00 00:00:00 ion [facility] 2023-02-21 2023-02-[address] [facility] [id number] 00:00:00 00:00:00 Only [facility] 2023-02-15 2023-02-15 Telephone Grajeda, [facility] [id number] 00:00:00 00:00:00 [facility] 2023-01-18 2023-01-20 [facility] [id number] 03:16:00 12:00:00 [facility] 2023-01-18 2023-01-20 Inpatient ER MARIELA, [facility] Oncology [id number] SLE 03:16:00 12:00:00 KIMBERLI 2023-01-18 2023-01-18 Outpatient EL NICCI [facility] [id number] SLE 00:00:00 00:00:00 [facility] 2023-01-18 2023-01-18 Travel [facility] [id number] [facility] 00:00:00 00:00:00 [facility] 2022-05-12 2022-05-12 Emergency Emergency Rassoli, [facility] [id number] [facility] 21:57:00 21:57:00 Amir 44 2022-05-12 2022-05-12 Emergency [facility] [id number] [facility] 21:57:00 21:57:00 44 Results Test Description Test Time Test Comments Results Result [facility] e Comments TISSUE EXAM 2023-03-24 Surgical Pathology Report 18:48:03 Case: [id number] Authorizing Provider: Susanna Wick MD Collected: 03/14/2023 09:04 AM Ordering Location: [address] Received: 03/15/2023 02:25 PM Service Pathologist: [...] CARCINOMA (0/22) Signing Pathologist Direct Phone Line: [phone] y signed by Eb Toney MD on 03/24/2023 at 6:48 PMRe-excision of the positive margins (floor of mouth, retromolar trigone, right base of tongue) are negative. Clinical correlation is recommended for the significance of the cauterized tumor at right soft tissue margin/positive margin. ORAL CAVITYLIP AND ORAL CAVITY: INCISIONAL BX, EXCISIONAL BX, RESECTION - All Mryjczupu7cn Edition - Protocol posted: 08/20/2021PECIMEN Procedure: Glossectomy: [...] ADDITIONAL FINDINGS Additional Findings: Epithelial hyperplasia A. 79381Z. 35967T. 33101S. 36922, 49736 x 1, 35248 x 5, 76230 x 1, 88115 x 2E. 62442, 23890 x 1F. 16620I. 35342, 56971F. 93496 27972, 69152 x 1, 57290 x 1I. 12069, 81486 x 1Tongue cancerGlossectomy and bilateral neck lymph [...] cut surface. The lymph nodes and a administrative representative section of this gland are submitted as described below.B1-1 possible lymph node, bisectedB2-1 lymph node, bisectedB3-1 lymph node, trisectedB 4-1 lymph node, bisectedB5-administrative representative section of glandC. Neck, LeftPart C [...] node, sectionedC4-1 lymph node, bisectedC5-1 whole possible nodeC6-administrative representative section of glandD. Soft Tissue, OtherThe [...] base of tongue (yellow at tip and anterior)N35-rtydc 2, start of wfkzywihhrY30- slice 3, continuity of rrtwvhhowsG91- slice 4, continuity of tbajrsbdzzZ87- slice 5, continuity of uoqohmthiiD33- slice 6, continuity of emwserplkyM43- slice 7- mass, closest deep okhndoK93- slice 9, Mass, with the closest left soft tissue ildkqrX44- Slice 10, administrative representative section of massD20- Slice 11, tumor abutting right soft ahrejpA15- D24- base of tongue, perpendicular sections, right side, with closest tumor to base of rcztpsS77-K25- administrative representative sections of quxsmmkxllK97- administrative representative sections of uvulaE. Soft Tissue, Other [...] node, bisectedF8-1 lymph node, bisectedF9-1 lymph node, obhanmpvE55-2 lymph node, pttvjddsI28-9 lymph node, bisectedF 12-1 lymph node, bisectedF 13-4 whole possible vzxjyR62-3 whole possible nodesG. Soft Tissue, Otherspecimen received [...] lymph nodesI8-4 whole lymph nodesI9-4 whole lymph yxhhgY46-4 whole lymph nodesD. Soft Tissue, OtherFROZEN SECTIONSubtotal [...] the use of immunohistochemistry or special stains.D18, D30NF85 & D2-40: fsgrkxsnF26- pwhngfyeZ8GV45- ucdhgqruF69- negative I10P40- negativeControl Slides Examined: In-house known positive controls were evaluated along with the test tissue. These control slides run alongside of the patients sample show appropriate staining. Internal positive and negative controls when available are evaluated Immunohistochemistry technical testing was performed at [facility], Pathology Laboratory where it was developed [...] to perform high complexity clinical laboratory testing.[facility], Department of Pathology, [address] [place] [address], [place] [address], [facility], [address] [place] [address], [facility], Department of Pathology, [address] [place] [address], POCT-GLUCOSE METER 2023-03-22 12:40:41 Test Item Value Reference Range Interpretation Comme nts POC-GLUCOSE METER (BEAKER) 107 mg/dL 70-110 : TESTED AT [address] (test code = 1538) [facility] X, [address]: Box Sorter/Techni federico ID = [id number] for TIRSO JAVIER [id number] 07:32:41 Test Item Value Reference Range Interpretation Comments MAGNESIUM (BEAKER) (test code = 2.0 mg/dL 1.6-2.6 627) Box Sorter ID - [id number] 07:32:41 Test Item Value Reference Range Interpretation Comments PHOSPHORUS (BEAKER) (test code = 5.2 mg/dL 2.3-4.7 H 604) Box Sorter ID - EOOBASIC METABOLIC [id number] 07:32:40 Test Item Value Reference Range Interpretation [...] not appl icable for dialysis patien ts Box Sorter ID - EOOPOCT-GLUCOSE [id number] 06:26:25 Test Item Value Reference Range Interpretation Comments POC-GLUCOSE METER 84 mg/dL 70-110 : TESTED A T [facility] 6720 (BEAKER) (test code = ST[place]A [place], 1538) [address]: Box Sorter/Techni federico ID = [id number] for SEMI EN, HANG CBC (HEMOGRAM ONLY)2023-03-22 [...] 0-0 (BEAKER) (test code = 413) POCT-GLUCOSE [id number] 23:51:48 Test Item Value Reference Range Interpretation Comments POC-GLUCOSE METER 127 mg/dL 70-110 H : TESTED A T [facility] 6720 (BEAKER) (test code = [facility], 1538) 10[address]: Box Sorter/Techni federico ID = [id number] for HANG ALMAZAN POCT-GLUCOSE [id number] 15:58:20 Test Item Value Reference Range Interpretation Comments POC-GLUCOSE METER 101 mg/dL 70-110 : TESTED A T [facility] 6720 (BEAKER) (test code = [facility], 1538) 833[address]: Box Sorter/Techni federico ID = [id number] for Al rahel, Sonali POCT-GLUCOSE [id number] 13:10:10 Test Item Value Reference Range Interpretation Comments POC-GLUCOSE METER 102 mg/dL 70-110 : TESTED A T [facility] 6720 (BEAKER) (test code = [facility], 1538) 90705: Box Sorter/Techni federico ID = [id number] for Al rahel, Sonali POCT-GLUCOSE [id number] 06:57:42 Test Item Value Reference Range Interpretation Comments POC-GLUCOSE METER 98 mg/dL 70-110 : TESTED A T [facility] 6720 (BEAKER) (test code = [facility], 1538) 78602: Box Sorter/Techni federico ID = [id number] for SEMI ENHANG [id number] 06:09:48 Test Item Value Reference Range Interpretation Comments MAGNESIUM (BEAKER) (test code = 1.9 mg/dL 1.6-2.6 627) Box Sorter ID - SARAH [id number] 06:09:48 Test Item Value Reference Range Interpretation Comments PHOSPHORUS (BEAKER) (test code = 4.2 mg/dL 2.3-4.7 604) Box Sorter ID - SARAH WBASIC METABOLIC [id number] 06:09:47 Test Item Value Reference Range Interpretation [...] not appl icable for dialysis patien ts Box Sorter ID - SARAH WCBC (HEMOGRAM ONLY)2023-03-21 05:41:00 [...] 0-0 (BEAKER) (test code = 413) POCT-GLUCOSE [id number] 02:33:24 Test Item Value Reference Range Interpretation Comments POC-GLUCOSE METER 80 mg/dL 70-110 : TESTED A T [facility] 6720 (BEAKER) (test code = [facility], 1538) 18170: Box Sorter/Techni federico ID = [id number] for Sue Brito POCT-GLUCOSE [id number] 18:37:31 Test Item Value Reference Range Interpretation Comments POC-GLUCOSE METER 84 mg/dL 70-110 : TESTED A T [facility] 6720 (BEAKER) (test code = [facility], 1538) 51343: Box Sorter/Techni federico ID = [id number] for Power macias, Angela POCT-GLUCOSE [id number] 13:00:04 Test Item Value Reference Range Interpretation Comments POC-GLUCOSE METER 91 mg/dL 70-110 : TESTED A T [facility] 6720 (BEAKER) (test code = [facility], 1538) 21262: Box Sorter/Techni federico ID = [id number] for Power macias, Angela [id number] 06:24:55 Test Item Value Reference Range Interpretation Comments PHOSPHORUS (BEAKER) (test code = 3.2 mg/dL 2.3-4.7 604) Box Sorter ID - EOOBASIC METABOLIC [id number] 06:24:54 Test Item Value Reference Range Interpretation [...] not appl icable for dialysis patien ts Box Sorter ID - [id number] 06:24:54 Test Item Value Reference Range Interpretation Comments MAGNESIUM (BEAKER) (test code = 1.9 mg/dL 1.6-2.6 627) Box Sorter ID - EOOPOCT-GLUCOSE [id number] 05:44:23 Test Item Value Reference Range Interpretation Comments POC-GLUCOSE METER 73 mg/dL 70-110 : TESTED A T [facility] 6720 (BEAKER) (test code = [place], 1538) 7[address]: Box Sorter/Techni federico ID = [id number] for Ramiro Pitts CBC (HEMOGRAM ONLY)2023-03-20 05:41:41 [...] 0-0 (BEAKER) (test code = 413) POCT-GLUCOSE [id number] 01:11:53 Test Item Value Reference Range Interpretation Comments POC-GLUCOSE METER 99 mg/dL 70-110 : TESTED A T [facility] 6720 (BEAKER) (test code = [facility], [facility]8) 77366: Box Sorter/Techni federico ID = [id number] for Ramiro Pitts POCT-GLUCOSE [id number] 18:05:19 Test Item Value Reference Range Interpretation Comments POC-GLUCOSE METER 141 mg/dL 70-110 H : TESTED A T [facility] 6720 (BEAKER) (test code = [facility], 1538) 23959: Box Sorter/Techni federico ID = [id number] for Ok makenna, Avery POCT-GLUCOSE [id number] 05:30:38 Test Item Value Reference Range Interpretation Comments POC-GLUCOSE METER 139 mg/dL 70-110 H : TESTED A T [facility] 6720 (BEAKER) (test code = [facility], 1538) 54493: Box Sorter/Techni federico ID = [id number] for Ad ams, Kimetra [id number] 02:57:20 Test Item Value Reference Range Interpretation Comments MAGNESIUM (BEAKER) (test code = 1.9 mg/dL 1.6-2.6 627) [id number] 02:57:20 Test Item Value Reference Range Interpretation Comments PHOSPHORUS (BEAKER) (test code = 3.7 mg/dL 2.3-4.7 604) BASIC METABOLIC [id number] 02:57:19 Test Item Value Reference Range Interpretation [...] 0-0 (BEAKER) (test code = 413) POCT-GLUCOSE [id number] 23:35:47 Test Item Value Reference Range Interpretation Comments POC-GLUCOSE METER 146 mg/dL 70-110 H : TESTED A T [facility] 6720 (BEAKER) (test code = [facility], 1538) 43727: Box Sorter/Techni federico ID = [id number] for Ad amsDarline POCT-GLUCOSE [id number] 13:10:55 Test Item Value Reference Range Interpretation Comments POC-GLUCOSE METER 98 mg/dL 70-110 : TESTED A T [facility] 6720 (BEAKER) (test code = [facility], 1538) 46238: Box Sorter/Techni federico ID = [id number] for NIST OR, TIFFANY [id number] 02:07:47 Test Item Value Reference Range Interpretation Comments PHOSPHORUS (BEAKER) (test code = 3.7 mg/dL 2.3-4.7 604) Box Sorter ID - [id number] 02:07:46 Test Item Value Reference Range Interpretation Comments MAGNESIUM (BEAKER) (test code = 1.8 mg/dL 1.6-2.6 627) Box Sorter ID - MARCOBASIC METABOLIC [id number] 02:07:46 Test Item Value Reference Range Interpretation [...] not appl icable for dialysis patien ts Box Sorter ID - MARCOCBC (HEMOGRAM ONLY)2023-03-18 01:43:23 Test [...] 0-0 (BEAKER) (test code = 413) POCT-GLUCOSE [id number] 06:11:57 Test Item Value Reference Range Interpretation Comments POC-GLUCOSE METER 116 mg/dL 70-110 H : TESTED A T [facility] 6720 (BEAKER) (test code = [place], 1538) [address]: Box Sorter/Techni federico ID = [id number] for IB ADAM VARGAS BASIC METABOLIC [id number] 04:24:08 Test Item Value Reference Range Interpretation [...] rted eGFR is based on the CKD-EPI 2021 equation t hat does not use a race coefficientEsti mated GFR is not as accur ate as Creatinine Clementine chance in predicting glom erular filtration rate . Estimated GFR is not appl icable for dialysis patien ts Box Sorter ID - [id number] 04:24:08 Test Item Value Reference Range Interpretation Comments MAGNESIUM (BEAKER) (test code = 3.9 mg/dL 1.6-2.6 H 627) Box Sorter ID - [id number] 04:24:08 Test Item Value Reference Range Interpretation Comments PHOSPHORUS (BEAKER) (test code = 3.1 mg/dL 2.3-4.7 604) Box Sorter ID - ADMINCBC (HEMOGRAM ONLY)2023-03-17 03:52:15 Test [...] 0-0 (BEAKER) (test code = 413) POCT-GLUCOSE [id number] 00:05:32 Test Item Value Reference Range Interpretation Comments POC-GLUCOSE METER 125 mg/dL 70-110 H : TESTED A T [facility] 67 (LORRI) (test [facility] = [facility], 153) [address]: Box Sorter/Techni federico ID = [id number] for IB ENEME, EUCHERIA POCT-GLUCOSE [id number] 18:44:19 Test Item Value Reference Range Interpretation Comments POC-GLUCOSE METER 125 mg/dL 70-110 H : Notified RN/MD: ([facility]) (test code = TESTED AT [facility] 6720 153) [facility], [address]: Box Sorter/Techni federico ID = [id number] for Senia Villatoro POCT-GLUCOSE [id number] 13:09:35 Test Item Value Reference Range Interpretation Comments POC-GLUCOSE METER 108 mg/dL 70-110 : TESTED A T [facility] 6720 (BEAKER) (test code = [place], 1538) [address]: Box Sorter/Techni federico ID = [id number] for Senia Villatoro [id number] 05:44:01 Test Item Value Reference Range Interpretation Comments PHOSPHORUS (BEAKER) (test code = 3.4 mg/dL 2.3-4.7 604) Box Sorter ID - MMBASIC METABOLIC [id number] 05:44:00 Test Item Value Reference Range Interpretation [...] (test code = 697) EGFR (BEAKER) 112 Interpretati on of eGFR (test code = [...] not appl icable for dialysis patien ts Box Sorter ID - [id number] 05:44:00 Test Item Value Reference Range Interpretation Comments MAGNESIUM (BEAKER) (test code = 2.6 mg/dL 1.6-2.6 627) Box Sorter ID - MMCBC (HEMOGRAM ONLY)2023-03-16 05:40:09 Test [...] 0-0 (BEAKER) (test code = 413) POCT-GLUCOSE [id number] 00:06:45 Test Item Value Reference Range Interpretation Comments POC-GLUCOSE METER 127 mg/dL 70-110 H : TESTED A T [facility] 6720 (BEAKER) (test code [facility], = 1538) 772[address]: Box Sorter/Techni federico ID = [id number] for Balwinder Smith POCT-GLUCOSE [id number] 17:44:55 Test Item Value Reference Range Interpretation Comments POC-GLUCOSE METER 119 mg/dL 70-110 H : TESTED A T [facility] 6720 (BEAKER) (test code = PAVAN Thomas [facility], 1538) 10857: Box Sorter/Techni federico ID = [id number] for Rod elin Senia POCT-GLUCOSE [id number] 14:16:32 Test Item Value Reference Range Interpretation Comments POC-GLUCOSE METER 120 mg/dL 70-110 H : TESTED A T [facility] 6720 (BEAKER) (test code = [place], 1538) 78[address]: Box Sorter/Techni federico ID = [id number] for Senia Villatoro [id number] 05:50:48 Test Item Value Reference Range Interpretation Comments MAGNESIUM (BEAKER) (test code = 1.5 mg/dL 1.6-2.6 L 627) Box Sorter ID - SARAH [id number] 05:50:48 Test Item Value Reference Range Interpretation Comments PHOSPHORUS (BEAKER) (test code = 4.0 mg/dL 2.3-4.7 604) Box Sorter ID - SARAH WBASIC METABOLIC [id number] 05:50:47 Test Item Value Reference Range Interpretation [...] not appl icable for dialysis patien ts Box Sorter ID - SARAH WCBC (HEMOGRAM ONLY)2023-03-15 05:18:47 [...] code = 413) HGB/HCT (H&H) - STAT [id number] 16:32:34 Test Item Value Reference Range Interpretation Comments HEMOGLOBIN (BEAKER) (test code = 11.2 GM/DL 12.0-15.0 L 410) HEMATOCRIT (BEAKER) (test code = 33.0 % 36.0-45.0 L 411) BLOOD GAS, [id number] 16:32:34 Test Item Value Reference Range Interpretation [...] (BEAKER) (test code = 1819) 30.0 CALCIUM, [id number] 16:32:33 Test Item Value Reference Range Interpretation Comments CALCIUM IONIZED (BEAKER) (test 1.14 mmol/L 1.12-1.27 code = 698) PH, BLOOD (BEAKER) (test code = 7.42 1810) GLUCOSE-STAT [id number] 16:32:14 Test Item Value Reference Range Interpretation Comments GLUCOSE RANDOM (BEAKER) (test code 142 mg/dL 70-110 H = 652) BLOOD GAS, [id number] 13:13:17 Test Item Value Reference Range Interpretation [...] (BEAKER) (test code = 1819) 28.0 CALCIUM, [id number] 13:13:16 Test Item Value Reference Range Interpretation Comments CALCIUM IONIZED (BEAKER) (test 1.28 mmol/L 1.12-1.27 H code = 698) PH, BLOOD (BEAKER) (test code = 7.43 1810) POTASSIUM-STAT [id number] 13:12:06 Test Item Value Reference Range Interpretation Comments POTASSIUM (BEAKER) (test code = 4.3 meq/L 3.6-5.5 379) HGB/HCT (H&H) - STAT [id number] 13:12:06 Test Item Value Reference Range Interpretation Comments HEMOGLOBIN (BEAKER) (test code = 12.8 GM/DL 12.0-15.0 410) HEMATOCRIT (BEAKER) (test code = 38.0 % 36.0-45.0 411) GLUCOSE-STAT [id number] 13:12:05 Test Item Value Reference Range Interpretation Comments GLUCOSE RANDOM (BEAKER) (test code 119 mg/dL 70-110 H = 652) SODIUM NA-STAT [id number] 13:12:05 Test Item Value Reference Range Interpretation Comments SODIUM (BEAKER) (test code = 381) 135 meq/L 136-145 L TISSUE [id number] 12:28:43Surgical Pathology Report Case: [id number] Authorizing Provider: Susanna Wick MD Collected: 03/03/2023 04:51 PM Ordering Location: [facility] PERIOPERATIVE Received: 03/06/2023 10:23 AM SERVICES Pathologist: Nick Banks MD Specimen: Tongue, RIGHT ANTERIOR TONSILAR PILLAR A. RIGHT ANTERIOR TONSILLAR PILLAR, BIOPSY - LYMPHOID TISSUE, NEGATIVE FOR CARCINOMA. Signing Pathologist Direct Phone Line: [phone] signed by Nick Banks MD on 03/14/2023 at 12:28 PMImmunostains for AE1/AE3 and p40 are negative.39825, 34154, 53686Qhdgie cancerA. TongueReceived fresh labeled with the patient's [...] are evaluatedImmunohistochemistry technical testing was performed [facility], Pathology L aboratory where it was [...] perform high complexity clinical laboratory testing.SODIUM NA-STAT [id number] 08:29:01 Test Item Value Reference Range Interpretation Comments SODIUM (BEAKER) (test code = 381) 134 meq/L 136-145 L CALCIUM, [id number] 08:29:00 Test Item Value Reference Range Interpretation Comments CALCIUM IONIZED (BEAKER) (test 1.10 mmol/L 1.12-1.27 L code = 698) PH, BLOOD (BEAKER) (test code = 7.45 1810) BLOOD GAS, [id number] 08:29:00 Test Item Value Reference Range Interpretation [...] (BEAKER) (test code = 1819) 54.0 POTASSIUM-STAT [id number] 08:27:11 Test Item Value Reference Range Interpretation Comments POTASSIUM (BEAKER) (test code = 4.4 meq/L 3.6-5.5 379) HGB/HCT (H&H) - STAT [id number] 08:27:11 Test Item Value Reference Range Interpretation Comments HEMOGLOBIN (BEAKER) (test code = 12.3 GM/DL 12.0-15.0 410) HEMATOCRIT (BEAKER) (test code = 36.0 % 36.0-45.0 411) GLUCOSE-STAT [id number] 08:27:10 Test Item Value Reference Range Interpretation Comments GLUCOSE RANDOM (BEAKER) (test code = 92 mg/dL 70-110 652) SARS-COV2/RT-PCR ([facility])2023-03-14 07:10:29 Test Item Value Reference Range Interpretation Comments SARS-COV2/RT-PCR Negative Negative The SARS-Co V-2 target (test code = nucleic acids a re not 2750535) detected in thi s specimen. Negative result [...] revoked sooner. Fact Sheet for Healthcare Providers: https://www.Hoseanna.co m/Documents/Xpert%20Xpress%20SARS%20CoV-2/Fact%20Sheets/3023802%72PWFA-CJP-3%20 HEALTHCARE%20PROVIDERS%20FACT%20SHEET.pdf Fact Sheet for Healthcare Patients: https://www.Patsnap/Documents/Xpert%20Xp ress%20SARS%20CoV-2/Fact%20Sheets/3023801%19AEPS-LLM-4%20PATIENT%20FACT%20SHEET .[id number] 03:44:35 Test Item Value Reference Range Interpretation Comments MAGNESIUM (BEAKER) (test code = 1.9 mg/dL 1.6-2.6 627) Box Sorter ID - SARAH [id number] 03:44:35 Test Item Value Reference Range Interpretation Comments PHOSPHORUS (BEAKER) (test code = 5.0 mg/dL 2.3-4.7 H 604) Box Sorter LARON SMITH WBASIC METABOLIC [id number] 03:44:34 Test Item Value Reference Range Interpretation [...] not appl icable for dialysis patien ts Box Sorter LARON SMITH WPT/[id number] 03:35:20 Test Item Value Reference Range Interpretation [...] for patients with mechanical heart valves. SCREEN, [id number] 19:22:08 Test Item Value Reference Range Interpretation Comments TEST URINE (BEAKER) (test Negative Negative code = 583) POC-Glucose [id number] 11:56:01 Test Item Value Reference Range Interpretation Comments POC-Glucose Meter (test 95 mg/dL 70-110 : TE STED AT [facility] code = 1538) [address] [facility], 770 30: Box Sorter/Techni federico ID = [id number] for Dewey Arora tone Lab Interpretation (test Normal code = 38570-0) [facility] HospitalPO[facility] [id number] 11:56:01 Test Item Value Reference Range Interpretation Comments POC-GLUCOSE METER 95 mg/dL 70-110 : [facility] (BEAKER[facility] (test code = [facility], 1538) [address]: Box Sorter/Techni federico ID = [id number] for Marsha Petty POCT-GLUCOSE [id number] 06:17:24 Test Item Value Reference Range Interpretation Comments POC-GLUCOSE METER 160 mg/dL 70-110 H : TESTED A T [facility] 6720 (BEAKER) (test code = [facility], 1538) 61792: Box Sorter/Techni federico ID = [id number] for HANG ALMAZAN [id number] 04:44:38 Test Item Value Reference Range Interpretation Comments MAGNESIUM (BEAKER) (test code = 1.9 mg/dL 1.6-2.6 627) Box Sorter ID - [id number] 04:44:38 Test Item Value Reference Range Interpretation Comments PHOSPHORUS (BEAKER) (test code = 5.3 mg/dL 2.3-4.7 H 604) Box Sorter ID - EOOBASIC METABOLIC [id number] 04:44:37 Test Item Value Reference Range Interpretation [...] not appl icable for dialysis patien ts Box Sorter ID - EOOPOCT-GLUCOSE [id number] 00:21:01 Test Item Value Reference Range Interpretation Comments POC-GLUCOSE METER 108 mg/dL 70-110 : TESTED A T [facility] 6720 ([facility]) (test code = [facility] Pin or Peg [facility], 1538) 21232: Box Sorter/Techni federico ID = [id number] for HANG ALMAZAN POCT-GLUCOSE [id number] 16:05:36 Test Item Value Reference Range Interpretation Comments POC-GLUCOSE METER 120 mg/dL 70-110 H : TESTED A T [facility] 6720 ([facility]) (test code = [facility] Pin or Peg [facility], 1538) 18487: Box Sorter/Techni federico ID = [id number] for Al rahel Sonali POCT-GLUCOSE [id number] 12:33:49 Test Item Value Reference Range Interpretation Comments POC-GLUCOSE METER 87 mg/dL 70-110 : TESTED A T [facility] 6720 ([facility]) (test code = [facility] Pin or Peg [facility], 1538) 30018: Box Sorter/Techni federico ID = [id number] for Snoali Harrison POCT-GLUCOSE [id number] 06:25:50 Test Item Value Reference Range Interpretation Comments POC-GLUCOSE METER 108 mg/dL 70-110 : TESTED A T [facility] 6720 (BEAKER) (test code = [facility] [place], 1538) 40519: Box Sorter/Techni federico ID = [id number] for HANG ALMAZAN [id number] 04:51:06 Test Item Value Reference Range Interpretation Comments MAGNESIUM (BEAKER) (test code = 1.6 mg/dL 1.6-2.6 627) Box Sorter ID - MAXWELL [id number] 04:51:06 Test Item Value Reference Range Interpretation Comments PHOSPHORUS (BEAKER) (test code = 4.4 mg/dL 2.3-4.7 604) Box Sorter ID - MAXWELL BBASIC METABOLIC [id number] 04:51:05 Test Item Value Reference Range Interpretation [...] not appl icable for dialysis patien ts Box Sorter ID - MAXWELL BPOCT-GLUCOSE [id number] 00:05:50 Test Item Value Reference Range Interpretation Comments POC-GLUCOSE METER 118 mg/dL 70-110 H : TESTED A T [facility] 6720 (BEAKER) (test code = [facility], 1538) 53509: Box Sorter/Techni federico ID = [id number] for HANG ALMAZAN POCT-GLUCOSE [id number] 16:40:48 Test Item Value Reference Range Interpretation Comments POC-GLUCOSE METER 99 mg/dL 70-110 : TESTED A T [facility] 6720 (BEAKER) (test code = [facility], 1538) 32775: Box Sorter/Techni federico ID = [id number] for Rosaline Deleon POCT-GLUCOSE [id number] 12:40:11 Test Item Value Reference Range Interpretation Comments POC-GLUCOSE METER 122 mg/dL 70-110 H : TESTED A T [facility] 6720 (BEAKER) (test code = [facility], 1538) 81112: Box Sorter/Techni federico ID = [id number] for Sonali Walters POCT-GLUCOSE [id number] 06:26:58 Test Item Value Reference Range Interpretation Comments POC-GLUCOSE METER 93 mg/dL 70-110 : TESTED A T [facility] 6720 (BEAKER) (test code = [facility], 1538) 78988: Box Sorter/Techni federico ID = [id number] for MIGUEL ENHANG [id number] 04:39:11 Test Item Value Reference Range Interpretation Comments MAGNESIUM (BEAKER) (test code = 1.7 mg/dL 1.6-2.6 627) Box Sorter ID - [id number] 04:39:11 Test Item Value Reference Range Interpretation Comments PHOSPHORUS (BEAKER) (test code = 4.6 mg/dL 2.3-4.7 604) Box Sorter ID - MARCOBASIC METABOLIC [id number] 04:39:10 Test Item Value Reference Range Interpretation [...] not appl icable for dialysis patien ts Box Sorter ID - MARCOBASIC METABOLIC [id number] 06:51:27 Test Item Value Reference Range Interpretation [...] not appl icable for dialysis patien ts Box Sorter ID - [id number] 06:51:27 Test Item Value Reference Range Interpretation Comments MAGNESIUM (BEAKER) (test code = 1.6 mg/dL 1.6-2.6 627) Box Sorter ID - [id number] 06:51:27 Test Item Value Reference Range Interpretation Comments PHOSPHORUS (BEAKER) (test code = 5.1 mg/dL 2.3-4.7 H 604) Box Sorter ID - MARCOPOC-Glucose [id number] 06:10:39 Test Item Value Reference Range Interpretation Comments POC-Glucose Meter (test 117 mg/dL 70-110 H : TE STED AT [facility] code = 1538) [address] [facility], 770 30: Box Sorter/Techni federico ID = [id number] for MONTEMAYOR JADECASS Loredo Lab Interpretation (test Abnormal code = 33659-6) [facility]PO[facility] [id number] 06:10:39 Test Item Value Reference Range Interpretation Comments POC-GLUCOSE METER 117 mg/dL 70-110 H : TESTED A T [facility] 6720 (BEAKER) (test code = [facility], 1538) 24983: Box Sorter/Techni federico ID = [id number] for TH OMPSON, BELKIS POCT-GLUCOSE [id number] 00:21:24 Test Item Value Reference Range Interpretation Comments POC-GLUCOSE METER 133 mg/dL 70-110 H : TESTED A T [facility] 6720 (BEAKER) (test code = [facility], 1538) 00468: Box Sorter/Techni federico ID = [id number] for TH OMPSON, BELKIS POCT-GLUCOSE [id number] 18:01:01 Test Item Value Reference Range Interpretation Comments POC-GLUCOSE METER 131 mg/dL 70-110 H : TESTED A T [facility] 6720 (BEAKER) (test code = [facility], 153) 79130: Box Sorter/Techni federico ID = [id number] for Sa nchez, Yamilith POC-Glucose [id number] 11:46:52 Test Item Value Reference Range Interpretation Comments POC-Glucose Meter (test 86 mg/dL 70-110 : TE STED AT [facility] code = 1538) [address] [facility], 770 30: Box Sorter/Techni federico ID = [id number] for Micha Gagnon Lab Interpretation (test Normal code = 86946-9) [facility] [id number] 11:46:52 Test Item Value Reference Range Interpretation Comments POC-GLUCOSE METER 86 mg/dL 70-110 : TESTED A T [facility] 6720 (BEAKER) (test code = [facility], 153) 01535: Box Sorter/Techni federico ID = [id number] for Sanc hez, Yamilith POCT-GLUCOSE [id number] 06:32:46 Test Item Value Reference Range Interpretation Comments POC-GLUCOSE METER 110 mg/dL 70-110 : [facility] (BEAKER) (test code = [facility], 153) 14456: Box Sorter/Techni federico ID = [id number] for HANG GELLER BASIC METABOLIC [id number] 05:38:35 Test Item Value Reference Range Interpretation [...] not appl icable for dialysis patien ts Box Sorter ID - [id number] 05:38:35 Test Item Value Reference Range Interpretation Comments MAGNESIUM (BEAKER) (test code = 1.8 mg/dL 1.6-2.6 627) Box Sorter ID - [id number] 05:38:35 Test Item Value Reference Range Interpretation Comments PHOSPHORUS (BEAKER) (test code = 3.4 mg/dL 2.3-4.7 604) Box Sorter ID - DBCBC W/PLT COUNT & AUTO [id number] 05:14:51 Test Item Value Reference Range Interpretation [...] PERCENT (BEAKER) (test code = 2801) POCT-GLUCOSE [id number] 23:49:04 Test Item Value Reference Range Interpretation Comments POC-GLUCOSE METER 97 mg/dL 70-110 : [facility] 6720 [facility] (test code = [facility], 153) 73628: Box Sorter/Techni federico ID = [id number] for SEMI TAMIKO HANG POCT-GLUCOSE [id number] 18:03:27 Test Item Value Reference Range Interpretation Comments POC-GLUCOSE METER 96 mg/dL 70-110 : TESTED A T [facility] 6720 ([facility]) (test code = [facility], 153) 12397: Box Sorter/Techni federico ID = [id number] for BELKIS SAMPSON POCT-GLUCOSE [id number] 12:11:29 Test Item Value Reference Range Interpretation Comments POC-GLUCOSE METER 95 mg/dL 70-110 : TESTED A T [facility] 6720 (BEAKER) (test code = [facility] [place], 1538) 71786: Box Sorter/Techni federico ID = [id number] for BELKIS SAMPSON POCT , [id number] 07:31:00 Test Item Value Reference Range Interpretation Comments Test Urine, POC (test Negative code = 2928458) Control line present?, POC (test Yes code = 6560687) Background clear?, POC (test code Yes = 3442500) UPT Cassette Lot #, POC (test code 306321 = 2917022) UPT Cassette Expiration Date, POC 03/19/2024 (test code = 9772418) [facility] , [id number] 07:31:00 Test Item Value Reference Range Interpretation Comments Test Urine, POC (test Negative code = 5513298) Control line present?, POC (test Yes code = 9327370) Background clear?, POC (test code Yes = 3982416) UPT Cassette Lot #, POC (test code 626889 = 0278476) UPT Cassette Expiration Date, POC 03/19/2024 (test code = 5033757) [facility] , [id number] 07:31:00 Test Item Value Reference Range Interpretation Comments Test Urine, POC (test Negative code = 3233235) Control line present?, POC (test Yes code = 6842188) Background clear?, POC (test code Yes = 3406000) UPT Cassette Lot #, POC (test code 615585 = 0550549) UPT Cassette Expiration Date, POC 03/19/2024 (test code = 6180433) [facility]PO[facility] , [id number] 07:31:00 Test Item Value Reference Range Interpretation Comments Test Urine, POC (test Negative code = 1279718) Control line present?, POC (test Yes code = 2423373) Background clear?, POC (test code Yes = 8151573) UPT Cassette Lot #, POC (test code 634343 = 7588042) UPT Cassette Expiration Date, POC 03/19/2024 (test code = 2284229) [facility]-Glucose [id number] 06:42:59 Test Item Value Reference Range Interpretation Comments POC-Glucose Meter (test 95 mg/dL 70-110 : TE STED AT [facility] code = 1538) [address] [place], 770 30: Box Sorter/Techni federico ID = [id number] for Shayy Olivarez Lab Interpretation (test Normal code = 10008-5) [facility]-GLUCOSE [id number] 06:42:59 Test Item Value Reference Range Interpretation Comments POC-GLUCOSE METER 95 mg/dL 70-110 : TESTED A T [facility] 6720 (BEAKER) (test [facility] = [facility], 1538) [address]74: Box Sorter/Techni federico ID = [id number] for Shayy Costello od [id number] 04:49:08 Test Item Value Reference Range Interpretation Comments PHOSPHORUS (BEAKER) (test code = 4.0 mg/dL 2.3-4.7 604) Box Sorter ID - ADMINBASIC METABOLIC [id number] 04:49:07 Test Item Value Reference Range Interpretation [...] not appl icable for dialysis patien ts Box Sorter ID - [id number] 04:49:07 Test Item Value Reference Range Interpretation Comments MAGNESIUM (BEAKER) (test code = 1.9 mg/dL 1.6-2.6 627) Box Sorter ID - ADMINCBC W/PLT COUNT & AUTO [id number] 04:23:38 Test Item Value Reference Range Interpretation [...] PERCENT (BEAKER) (test code = 2801) POCT-GLUCOSE [id number] 23:51:35 Test Item Value Reference Range Interpretation Comments POC-GLUCOSE METER 115 mg/dL 70-110 H : TESTED A T [facility] 6720 (BEAKER) (test code = [facility], [facility]) 39099: Box Sorter/Techni federico ID = [id number] for Kathleen acuña Shayy POCT-GLUCOSE [id number] 18:02:27 Test Item Value Reference Range Interpretation Comments POC-GLUCOSE METER 97 mg/dL 70-110 : TESTED A T [facility] 6720 (BEAKER) (test code = [facility], [facility]) 03117: Box Sorter/Techni federico ID = [id number] for JENNI PSON, BELKIS POCT-GLUCOSE [id number] 12:21:50 Test Item Value Reference Range Interpretation Comments POC-GLUCOSE METER 82 mg/dL 70-110 : TESTED A T [facility] 6720 (BEAKER) (test code = [facility], [facility]) 19256: Box Sorter/Techni federico ID = [id number] for JENNI PSON, BELKIS POCT-GLUCOSE [id number] 06:39:31 Test Item Value Reference Range Interpretation Comments POC-GLUCOSE METER 82 mg/dL 70-110 : TESTED A T [facility] 6720 (BEAKER) (test code = [facility], [facility]) 11993: Box Sorter/Techni federico ID = [id number] for Kathleenmesha logan Shayy [id number] 05:41:53 Test Item Value Reference Range Interpretation Comments MAGNESIUM (BEAKER) (test code = 1.9 mg/dL 1.6-2.6 627) Box Sorter ID - [id number] 05:41:53 Test Item Value Reference Range Interpretation Comments PHOSPHORUS (BEAKER) (test code = 4.3 mg/dL 2.3-4.7 604) Box Sorter ID - ADMINBASIC METABOLIC [id number] 05:41:52 Test Item Value Reference Range Interpretation [...] not appl icable for dialysis patien ts Box Sorter ID - ADMINCBC W/PLT COUNT & AUTO [id number] 05:18:36 Test Item Value Reference Range Interpretation [...] PERCENT (BEAKER) (test code = 2801) POCT-GLUCOSE [id number] 00:09:35 Test Item Value Reference Range Interpretation Comments POC-GLUCOSE METER 160 mg/dL 70-110 H : TESTED A T [facility] 6720 (BEAKER) (test code = [facility] William [facility], 1538) 92999: Box Sorter/Techni federico ID = [id number] for Shayy Bahena POCT-GLUCOSE [id number] 17:21:07 Test Item Value Reference Range Interpretation Comments POC-GLUCOSE METER 75 mg/dL 70-110 : TESTED A T [facility] 6720 (BEAKER) (test code = [facility], 1538) 66300: Box Sorter/Techni federico ID = [id number] for Sonali Harrison Screen, [id number] 15:22:58 Test Item Value Reference Range Interpretation Comments Preg Test, Ur (test code = 2112-1) Negative Negative Lab Interpretation (test code = Normal 39568-8) [facility]regnancy [facility], [id number] 15:22:58 Test Item Value Reference Range Interpretation Comments Preg Test, Ur (test code = 2112-1) Negative Negative Lab Interpretation (test code = Normal 25595-8) [facility], [id number] 15:22:58 Test Item Value Reference Range Interpretation Comments Preg Test, Ur (test code = 2112-1) Negative Negative Lab Interpretation (test code = Normal 40838-0) [facility] HospitalPregnancy Screen, [id number] 15:22:58 Test Item Value Reference Range Interpretation Comments Preg Test, Ur (test code = 2112-1) Negative Negative Lab Interpretation (test code = Normal 94080-4) [facility] HospitalPREGNANCY SCREEN, [id number] 15:22:58 Test Item Value Reference Range Interpretation Comments TEST URINE (BEAKER) (test Negative Negative code = 583) POCT-GLUCOSE [id number] 17:25:51 Test Item Value Reference Range Interpretation Comments POC-GLUCOSE METER 87 mg/dL 70-110 : TESTED A T [facility] 6720 (BEAKER) (test code = [facility], 1538) 74219: Box Sorter/Techni federico ID = [id number] for JUDIT Wells MARK POCT-GLUCOSE [id number] 12:49:55 Test Item Value Reference Range Interpretation Comments POC-GLUCOSE METER 93 mg/dL 70-110 : TESTED A T [facility] 6720 (BEAKER) (test code = [facility] [place], 1538) [address]9627: Box Sorter/Techni federico ID = [id number] for MARK CEBALLOS COMPREHENSIVE METABOLIC [id number] 05:47:37 Test Item Value Reference Range Interpretation [...] not appl icable for dialysis patien ts Box Sorter ID - [id number] 05:41:52 Test Item Value Reference Range Interpretation Comments PREALBUMIN (BEAKER) (test code = 26 mg/dL 14-45 586) Box Sorter ID - [id number] 05:34:03 Test Item Value Reference Range Interpretation Comments PARTIAL THROMBOPLASTIN TIME 35.5 seconds 22.5-36.0 (BEAKER) (test code = 760) PROTHROMBIN TIME/PNA2729-22-06 05:33:23 Test Item Value Reference Range Interpretation Comments PROTIME (BEAKER) (test code = 13.1 seconds 11.9-14.2 759) INR (BEAKER) (test code = 370) 1.05 <=5.90 RECOMMENDED COUMADIN/WARFARIN INR THERAPY RANGESSTANDARD DOSE: 2.0 - 3.0 Includes: PROPHYLAXIS for venous thrombosis, systemic embolization; TREATMENT for venous thrombosis and/or pulmonary embolus.HIGH RISK: Target INR is 2.5-3.5 for patients with mechanical heart valves.CBC W/PLT COUNT & AUTO [id number] 05:25:30 Test Item Value Reference Range Interpretation [...] code = 2801) HIV-1 ANTIGEN WITH HIV-1/2 [id number] 13:53:09 Test Item Value Reference Range Interpretation Comments HIV-1 ANTIGEN WITH HIV 1\\T\\2 Nonreactive Nonreactive ANTIBODY (2) (BEAKER) (test code = 2586) Box Sorter ID - ADMINHEPATITIS C [id number] 13:53:08 Test Item Value Reference Range Interpretation Comments HEPATITIS C ANTIBODY (BEAKER) Nonreactive Nonreactive (test code = 367) Box Sorter ID - [id number] 13:38:31 Test Item Value Reference Range Interpretation Comments PREALBUMIN (BEAKER) (test code = 30 mg/dL 45 586) Box Sorter ID - ADMINXR ABDOMEN/KUB 1 VIEW [id number] 19:34:44 [facility] : 1980 Sex: FTECHNIQUE: XR ABDOMEN/KUB 1 VIEW PORTABLEINDICATION: DHT PLacement.COMPARISON: None.FINDINGS:Feeding tube tip projected over the gastric antrum. Nonobstructive bowelgas pattern. Lower pelvis is incompletely included on this examination.Supine radiographs are insensitive for detection of free intraperito nealair.IMPRESSION:Feeding tube tip projected over the gastric antrum.Electronically Signed By: Jarvis Welsh03/03/2023 19:36 CDTWorkstation Name: [id number] CHEST WITH IV [id number] 17:28:20 [facility] : 1980 Sex: FCT of [...] Signed By: Jude Calero02/25/2023 17:30 CDTWorkstation Name: [id number] NECK SOFT TISSUE WITH IV [id number] 14:07:41 [facility] PABLO : 1980 Sex: FExamination:CT [...] Signed By: Natacha Mondragon02/23/2023 14:09 CDTWorkstation Name: [id number], CHEST, WITH [id number] 07:29:00 Unlisted Reason for Exam - Click Yes and Enter Reason Below->No [facility] VILLAJESS SHAH : 1980 Sex: FFINAL [...] Nicholas MDReport Verified Da te/Time: 01/20/2023 07:29:13 [id number] 05:13:48 Test Item Value Reference Range Interpretation Comments MAGNESIUM (BEAKER) (test code = 1.7 mg/dL 1.6-2.6 627) Box Sorter ID - [id number] 05:13:48 Test Item Value Reference Range Interpretation Comments PHOSPHORUS (BEAKER) (test code = 4.1 mg/dL 2.3-4.7 604) Box Sorter ID - MMBASIC METABOLIC [id number] 05:13:47 Test Item Value Reference Range Interpretation [...] not appl icable for dialysis patien ts Box Sorter ID - MMBASIC METABOLIC [id number] 06:42:56 Test Item Value Reference Range Interpretation [...] not appl icable for dialysis patien ts Box Sorter ID - [id number] 06:42:56 Test Item Value Reference Range Interpretation Comments MAGNESIUM (BEAKER) (test code = 1.8 mg/dL 1.6-2.6 627) Box Sorter ID - [id number] 06:42:56 Test Item Value Reference Range Interpretation Comments PHOSPHORUS (BEAKER) (test code = 4.0 mg/dL 2.3-4.7 604) Box Sorter ID - ADMINVITAMIN [id number] 06:39:31 Test Item Value Reference Range Interpretation Comments VITAMIN B12 (BEAKER) (test code = 341 pg/mL 213-816 774) Box Sorter ID - ADMINIRON, TIBC, % SAT. (WITHOUT FERRITIN)2023-01-19 06:11:34 Test Item Value Reference Range Interpretation Comments IRON (BEAKER) (test code = 547) 22.0 ug/dL 40.0-160.0 L TOTAL IRON BINDING CAPACITY 394 ug/dL 250-450 (BEAKER) (test code = 769) IRON % SATURATION (2) (BEAKER) 6 % 20-55 L (test code = 2590) Box Sorter ID - [id number] 06:40:41 Test Item Value Reference Range Interpretation Comments MAGNESIUM (BEAKER) 1.5 mg/dL 1.6-2.6 L Specimen slightly (test code = 627) hemolyzed Box Sorter ID - SARAH [id number] 06:40:41 Test Item Value Reference Range Interpretation Comments PHOSPHORUS (BEAKER) 3.6 mg/dL 2.3-4.7 Specimen slightly (test code = 604) hemolyzed Box Sorter ID - SARAH WCOMPREHENSIVE METABOLIC [id number] 06:40:41 Test Item Value Reference Range Interpretation [...] not appl icable for dialysis patien ts Box Sorter ID - SARAH WCBC W/PLT COUNT & AUTO [id number] 05:43:39 Test Item Value Reference Range Interpretation [...] PERCENT (BEAKER) (test code = 2801) Ethanol [id number] 02:25:00 Test Item Value Reference Range Interpretation [...] 1. 8-10.1 mIU/mL Complete Blood Count Auto [id number] 22:56:00 Test Item Value Reference Range Interpretation [...] code = NRBCP) 0 % Comprehensive Metabolic [id number] 22:56:00 Test Item Value Reference Range Interpretation [...] 106 U/L 46-116 N = ALP) Ethanol [id number] 22:56:00 Test Item Value Reference Range Interpretation Comments Ethanol (test code 242 mg/dL The pharm acological = ETOH) response to blo od alcohol levels mayvary from individual to i ndividual. The fatal ginna ntrationhas been reported t o be >400mg/dL. Manual Differential, [id number] 22:56:00 Test Item Value Reference Range Interpretation [...] 1+ None Seen A Coronavirus PCR, COVID19 [id number] 22:52:00 Test Item Value Reference Range Interpretation Comments Coronavirus PCR, For use under Emergency COVID19 Rapid (test Use Authorization (EUA) code = SARSCOV2) only. Coronavirus PCR, Reference Range: COVID19 Rapid (test Negative code = IIFSIDS56.1) SARS-CoV-2 PCR Result: Negative by RT-PCR (test code = SARS-CoV-2 PCR Result:) COVID-19 Status: AsymptomaticUA, Urinalysis Rflx [id number] 22:52:00 Test Item Value Reference Range Interpretation Comments Color,Urine (test code = UCOL) Yellow Yellow Clarity,Urine (test code = Clear Clear UCLAR) Ph, Urine (test code = UPH) 6.0 5.0-9.0 N Specific [place],Urine (test 1.020 1.005-1.030 N code = USG) [...] A code = ULEU) UF REFLEXUF REFLEXUrine [id number] 22:52:00 Test Item Value Reference Range Interpretation Comments RBC,Urine (test code = URBCUF) 0-2 /HPF 0-2 WBC,Urine (test code = UWBCUF) 0-5 /HPF 0-5 Epithelial Cell,Urine (test 0-5 /HPF 0-5 code = UECUF) Casts,Urine (test code = 0-5 /LPF None Seen UCASTUF) Bacteria,Urine (test code = None Seen /hpf None Seen UBACTUF) UF REFLEXUF REFLEXDrug Screen,[id number] 22:52:00 Test Item Value Reference Range Interpretation [...]
--- NOTE | 2023-05-07 15:53 | ER ---
Nurse's Notes [facility] Name: Brii Garcia Age: 43 yrs Sex: Female : 1980 Arrival Date: 05/07/2023 Time: 14:42 Bed 16 Private MD: Diagnosis: Tracheostomy malfunction now resolved Presentation: 05/07 15:13 Chief complaint: Patient's son or daughter states: she is complaining that her trache iw feels too tight and she is having a hard time breathing , was seen here yesterday for ETOH abuse and was set to follow up with Dr. Purdy next week for trache issue. Coronavirus screen: At this time, the client does not indicate any symptoms associated with coronavirus-19. Ebola Screen: Patient negative for fever greater than or equal to 101.5 degrees Fahrenheit, and additional compatible Ebola Virus Disease symptoms Patient denies exposure to infectious person. Patient denies travel to an Ebola-affected area in the 21 days before illness onset. No symptoms or risks identified at this time. Initial Sepsis Screen: Does the patient meet any 2 criteria? No. Patient's initial sepsis screen is negative. Does the patient have a suspected source of infection? No. Patient's initial sepsis screen is negative. Risk Assessment: Do you want to hurt yourself or someone else? Patient reports no desire to harm self or others. Onset of symptoms was May 07, 2023. 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 - Social history:: Smoking status: unknown. Screenin:14 [facility] ED Fall Risk Assessment (Adult) History of falling in the last 3 months, me1 including since admission No falls in past 3 months (0 pts) Confusion or Disorientation No (0 pts) Intoxicated or Sedated No (0 pts) Impaired Gait No (0 pts) Mobility Assist Device Used No (0 pt) Altered Elimination No (0 pt) Score/Fall Risk Level 0 - 2 = Low Risk. Abuse screen: Denies threats or abuse. Nutritional screening: No deficits noted. Tuberculosis screening: No symptoms or risk factors identified. Assessment: 16:14 General: Appears comfortable, Behavior is calm, cooperative, appropriate for age, me1 Reports trach feels tight, reports having a hard time breathing. Denies fever, feeling ill, fatigue, chills. Pain: Denies pain. Neuro: Level of Consciousness is awake, alert, obeys commands, Oriented to person, place, time, situation, Appropriate for age. Cardiovascular: Capillary refill < 3 seconds Patient's skin is warm and dry. Respiratory: Trachea midline Respiratory effort is even, unlabored, Respiratory pattern is regular, symmetrical, Inner cannula missing. Per RT it was missing yesterday when patient was seen for ETOH abuse as well. 16:17 Reassessment: Patient appears in no apparent distress at this time. No changes from me1 previously documented assessment. Patient and/or family updated on plan of care and expected duration. Pain level reassessed. Patient is alert, oriented x 3, equal unlabored respirations, skin warm/dry/pink. Vital Signs: 15:13 BP 135 / 100; Pulse 101; Resp 18; Temp 98.2; Pulse Ox 100% on R/A; iw 15:45 BP 125 / 96; Pulse 97; Resp 22; Pulse Ox 100% on R/A; me1 16:17 BP 123 / 88; Pulse 87; Resp 19; Pulse Ox 100% on R/A; me1 ED Course: 14:45 Patient arrived in ED. im 14:46 Lakhwinder Darden MD is Attending Physician. sp3 15:15 Triage completed. iw 15:15 Arm band placed on. iw 15:25 Melani Leggett, ANNE-MARIE is Primary Nurse. me1 15:56 Neck Soft Tissue XRAY In Process Unspecified. EDMS 16:14 Patient has correct armband on for positive identification. Bed in low position. Call me1 light in reach. Side rails up X2. Provided Education on: POC. Verbalized understanding.. 16:14 No provider procedures requiring assistance completed. Patient did not have IV access me1 during this emergency room visit. Administered Medications: 15:21 CANCELLED (Wrong Pt): NS 0.9% IV 1000 ml IV at 1 bolus Per protocol; 1000 mL bolus sp3 15:21 CANCELLED (wrong pt): Rocephin IV 1 grams IV at calculated rate once; Given slow IV sp3 push per pharmacy instructions Medication: 16:14 VIS not applicable for this client. me1 Outcome: 15:52 Discharge ordered by . sp3 16:20 Discharged to home ambulatory. me1 16:20 Condition: stable 16:20 Discharge instructions given to patient, Instructed on discharge instructions, follow up and referral plans. Demonstrated understanding of instructions, follow-up care. 16:37 Patient left the ED. me1 Signatures: Dispatcher [employer] Sultana Duran, RN RN iw Lakhwinder Darden MD MD sp3 Naya Portillo Michelle, ANNE-MARIE RN me1
--- NOTE | 2023-05-07 15:53 | EDPHYS ---
Physician Documentation [facility] Name: Brii Garcia Age: 43 yrs Sex: Female : 1980 Arrival Date: 05/07/2023 Time: 14:42 Bed 16 Private MD: ED Physician Lakhwinder Darden HPI: 05/07 15:48 This 43 yrs old Black Female presents to ER via Ambulatory with complaints of Trachea sp3 issue. 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 Patient's been here multiple times in the past and imaging is always without abnormality. She was seen here yesterday where ER physician contacted Dr. Purdy and arrange follow-up. Review of systems otherwise negative for fever, chest pain, back pain or any other signs or symptoms of concern at this time.. 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 - Social history:: Smoking status: unknown. ROS: 15:50 Constitutional: Negative for fever, chills, and weight loss, Eyes: Negative for injury, sp3 pain, redness, and discharge, Neck: Negative for injury, pain, and swelling, Cardiovascular: Negative for chest pain, palpitations, and edema, Abdomen/GI: Negative for abdominal pain, nausea, vomiting, diarrhea, and constipation, Back: Negative for injury and pain, MS/Extremity: Negative for injury and deformity, Skin: Negative for injury, rash, and discoloration, Neuro: Negative for headache, weakness, numbness, tingling, and seizure. 15:50 All other systems are negative. Exam: 15:50 Constitutional: This is a well developed, well nourished patient who is awake, alert, sp3 and in no acute distress. Head/Face: Normocephalic, atraumatic. Eyes: Pupils equal round and reactive to light, extra-ocular motions intact. Lids and lashes normal. Conjunctiva and sclera are non-icteric and not injected. Cornea within normal limits. Periorbital areas with no swelling, redness, or edema. Chest/axilla: Normal chest wall appearance and motion. Nontender with no deformity. No lesions are appreciated. Cardiovascular: Regular rate and rhythm with a normal S1 and S2. No gallops, murmurs, or rubs. Normal PMI, no JVD. No pulse deficits. Respiratory: Lungs have equal breath sounds bilaterally, clear to auscultation and percussion. No rales, rhonchi or wheezes noted. No increased work of breathing, no retractions or nasal flaring. Abdomen/GI: Soft, non-tender, with normal bowel sounds. No distension or tympany. No guarding or rebound. No evidence of tenderness throughout. MS/ Extremity: Pulses equal, no cyanosis. Neurovascular intact. Full, normal range of motion. Neuro: Awake and alert, GCS 15, oriented to person, place, time, and situation. Cranial nerves II-XII grossly intact. Motor strength 5/5 in all extremities. Sensory grossly intact. Cerebellar exam normal. Normal gait. Psych: Awake, alert, with orientation to person, place and time. Behavior, mood, and affect are within normal limits. 15:50 Neck: Tracheostomy in place with no inner cannula. There appears to be air going in and out. Respiratory process attempting to suction.. Vital Signs: 15:13 BP 135 / 100; Pulse 101; Resp 18; Temp 98.2; Pulse Ox 100% on R/A; iw 15:45 BP 125 / 96; Pulse 97; Resp 22; Pulse Ox 100% on R/A; me1 16:17 BP 123 / 88; Pulse 87; Resp 19; Pulse Ox 100% on R/A; me1 MDM: 15:21 Patient medically screened. sp3 15:50 Data reviewed: vital signs, nurses notes, radiologic studies. ED course: 43-year-old sp3 female with extensive cancer history of head and neck now presents with subjective difficulty with her tracheostomy. Patient's vital sign similar to yesterday are normal. Pulse ox is 100% on room air patient is afebrile and her respiratory rate is only 18. She appears very anxious and is having a little bit of spitting up although I do not believe this is due to her inability to swallow. Soft tissue x-rays of the neck demonstrate no significant abnormality. We will send respiratory therapist into suction otherwise given her normal vital signs the plan can be the same as yesterday which follow-up with Dr. Purdy.. 05/07 15:22 Order name: Neck Soft Tissue XRAY sp3 Administered Medications: 15:21 CANCELLED (Wrong Pt): NS 0.9% IV 1000 ml IV at 1 bolus Per protocol; 1000 mL bolus sp3 15:21 CANCELLED (wrong pt): Rocephin IV 1 grams IV at calculated rate once; Given slow IV sp3 push per pharmacy instructions Disposition Summary: 05/07/23 15:52 Discharge Ordered Location: Home sp3 Condition: Stable sp3 Diagnosis - Tracheostomy malfunction now resolved sp3 Followup: sp3 - With: Private Physician - When: Upon discharge from the Emergency Department - Reason: Continuance of care Discharge Instructions: - Discharge Summary Sheet sp3 - How to Suction a Tracheostomy Tube, Adult sp3 Forms: - Medication Reconciliation Form sp3 - Thank You Letter sp3 - Antibiotic Education sp3 - Prescription Opioid Use sp3 - Patient Portal Instructions sp3 - Leadership Thank You Letter sp3 Signatures: Dispatcher [employer] Sultana Duran RN RN iw Lakhwinder Darden MD MD sp3 Melani Leggett RN RN me1 Corrections: (The following items were deleted from the chart) 15:21 15:21 NS 0.9% IV 1000 ml IV at 1 bolus Per protocol; 1000 mL bolus ordered. sp3 sp3 15:21 15:21 Rocephin IV 1 grams IV at calculated rate once; Given slow IV push per pharmacy sp3 instructions ordered. sp3
--- NOTE | 2023-05-07 16:19 | RAD REPORT ---
EXAM DESCRIPTION: RAD - Neck Soft Tissue - 05/07/2023 3:54 pm CLINICAL HISTORY: Difficulty swallowing/swelling reported COMPARISON: Soft Tissue Neck W/Contr dated 04/12/2023 FINDINGS/IMPRESSION: Tracheostomy. Surgical clips overlie the upper neck. Soft tissue fullness is pr esent. This is largely related to postsurgical changes including free flap reconstruction. No radiogr aphic findings to suggest significant change from the CT from 04/12/2023.
[2023-05-07 16:42] VITALS: TEMP 98.2; O2SAT 100
[2023-05-07 16:44] VITALS: BP 123/88
== END 2023-05-07 16:37 | disposition home or self-care (01) ==
LOC: ER 14:42
DX: J95.03 Malfunction of tracheostomy stoma (principal)
CPT/HCPCS: 70360; 99283

== ENCOUNTER 2023-06-07 03:20 | Emergency (ER) | payer OTHER ==
--- OUTSIDE RECORDS SUMMARY | 2023-06-07 03:28 | XMS REPORT | Continuity of Care Document ---
:1980 Author Organization [facility] t Address [address] [place] [address] [address] [place] [address] Care Team Providers Name Role Phone SUSANNA WICK Attending Clinician Unavailable ABDOULAYE JOHNSON Attending Clinician Unavailable CARLOS GRAJEDA Attending Clinician Unavailable YENIFER MALLOY Attending Clinician Unavailable Nicci KHALIL, Carlos Diaz Attending Clinician [phone] Lillian KHALIL, Jose Kelley Attending Clinician Demetrius Dugan MD Attending Clinician Shantanu KHALIL, Yash Maurer Attending Clinician [phone] Alvin Alcala Attending Clinician Unavailable Caridad KHALIL, Maryann Attending Clinician Susanna Wick MD Attending Clinician Abdoulaye Johnson MD Attending Clinician Eloisa XIE, Gypsy Attending Clinician Unavailable Yenifer Malloy Attending Clinician Aruna Packer LMSW Attending Clinician Unavailable Prabha Narvaez Attending Clinician [phone] PRABHA WINN Attending Clinician Unavailable Yolanda KHALIL, Mindy Cobb Attending Clinician [phone] Kurt ARCE, Jolynn Attending Clinician Unavailable Judit Lau Attending Clinician Meño KHALIL, Mariaa Vitale Attending Clinician Mariela KHALIL, Kimberli Ventura Attending Clinician KIMBERLI FABIAN Attending Clinician Unavailable Chika Rosa Attending Clinician Unavailable SUSANNA WICK Admitting Clinician Unavailable JUDIT LAU Admitting Clinician Unavailable Payers Payer Name Policy Type Policy Number Effective Date Expiration Date [facility] COMM KAUNAKAKAI [id number] 2023 PLAN 00:00:00 [place] [id number] 2022 00:00:00 Problems Condition Condition Condition Status Onset Resolution Last Treating Co mments Source Name Details Category Date Date Treatment Clinician Date 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 Oral phase Oral phase Disease Recurre [facility] dysphagia dysphagia nce 5-17 [facility] 00:00: Medical 00 [place] Oropharyng Oropharyng Disease Active C HI St [...] NO KNOWN Allergy Active [facility] Family History Family Member Diagnosis Comments Start Date Stop Date Source Natural father Lung cancer [facility] Maternal aunt Cancer [facility] Maternal uncle Prostate cancer [place] Maternal uncle Kidney failure [facility] Natural mother Stomach cancer [facility] Social History Social Habit Start Date Stop Date Quantity Comments Source History of tobacco Cigarette Smoker [facility] use [facility] History [facility]Med Medical [facility] Alcohol intake 2023-03-08 2023-03-08 Ex-drinker [facility] 00:00:00 00:00:00 (finding) Medical Center Exposure to 2023-02-22 2023-03-04 Not sure [facility] SARS-CoV-2 (event) 00:00:00 02:06:00 Medica l Center History [facility] 2023-03-04 2023-03-04 [address] [facility] Transport Med 00:00:00 00:00:[address] History [facility] 2023-03-04 2023-03-04 1 [facility] Unable to 00:00:00 00:00:00 Medical Center Pay History [facility] 2023-03-04 2023-03-[address] [facility] Places 00:00:00 00:00:00 Medical Ce nter Lived History [facility] 2023-03-04 2023-03-[address] [facility] Housing [...] Center Sex Assigned At [birth year] F [facility] Crista kes 00:00:00 00:00:00 Medical Center Smoking Status Start Date Stop Date Source Smokes tobacco daily 2023-02-23 00:00:[address] [facility] Medications Ordered Filled Start Stop Current [...] (5 mg [facility] solution 07:57: total) by [facility] 54 mouth Center every 4 (four) hours as needed for Pain. morphine 10 0 Yes 5mg Take 2.[address] mg/5 mL 7-01 mLs (5 mg [facility] solution 07:57: total) by [facility] 54 mouth Center every 4 (four) hours as needed for Pain. morphine 10 2022-0 Yes 5mg Take 2.[address] mg/5 mL 7-01 mLs (5 mg [facility] solution 07:57: total) by [facility] 54 mouth Center every 4 (four) [...] (5 mg [facility] solution 13:57: total) by [facility] 48 mouth Center every 4 (four) hours as needed for Pain. miscellaneo Yes Oral [facility] 6-24 suction [facility] supply Misc 00:00: machine. Ga dical 00 Center miscellaneo [address] [facility] 6-24 suction [facility] supply Misc 00:00: machine. Ga dical 00 Center miscellaneo [address] [facility] 6-24 suction [facility] supply Misc 00:00: machine. Ga dical 00 Center miscellaneo [address] [facility] 6-24 suction [facility] supply Misc 00:00: machine. Ga dical 00 Center miscellaneo [address] [facility] 6-24 suction [facility] supply Misc 00:00: machine. Ga dical 00 Center methadone Yes Cancer 2mg Take [address] (DOLOPHINE) 6-23 associated (2 mg L ukes 5 mg/5 mL 00:00: pain total) by [facility] ical solution 00 mouth Center every 12 (twelve) hours. lactulose 0 Yes 20g Q.[id number] Take [address] (CHRONULAC) 6-23 [id number] mLs (20 g [facility]ukes 10 gram/15 00:00: 3D total) by Ga dical mL solution 00 mouth 3 Cente [...] 12 (twelve) hours. lactulose 2023-0 Yes 20g Q.[id number] Take [address] (CHRONULAC) 6-23 [id number] mLs (20 g [facility]ukes 10 gram/15 00:00: 3D total) by Ga dical mL solution 00 mouth 3 Cente [...] 12 (twelve) hours. lactulose 2023-0 Yes 20g Q.[id number] Take [address] (CHRONULAC) 6-23 [id number] mLs (20 g [facility]ukes 10 gram/15 00:00: 3D total) by Ga dical mL solution 00 mouth 3 Cente [...] 12 (twelve) hours. lactulose 2023-0 Yes 20g Q.[id number] Take [address] (CHRONULAC) 6- [id number] mLs (20 g [facility]ukes 10 gram/15 00:00: 3D total) by Ga dical mL solution 00 mouth 3 Cente [...] 12 (twelve) hours. lactulose 2022-0 Yes 20g Q.[id number] Take [address] (CHRONULAC) 6- [id number] mLs (20 g [facility]ukes 10 gram/15 00:00: 3D total) by Ga dical mL solution 00 mouth 3 Cente r (three) times daily. viscous 2022-0 Yes 5mL Swish and [facility] t lidocaine 623 spit 5 mLs Luke s 2% (VISCOUS 00:00: every 6 Med ical LIDOCAINE) 00 (six) Center 2 % Soln hours as mucosal needed. solution lactulose 0 Yes 20g Q.[id number] Take [address] (CHRONULAC) 6 [id number] mLs (20 g [facility]ukes 10 gram/15 00:00: 3D total) by Ga dical mL solution 00 mouth 3 Cente r (three) times daily. viscous 2022-0 Yes 5mL Swish and [facility] t lidocaine 6-23 spit 5 mLs Luke s 2% (VISCOUS 00:00: every 6 Med ical LIDOCAINE) 00 (six) Center 2 % Soln hours as mucosal needed. solution nicotine 2022-0 202- No 1{patch Q24H Place [address] (NICODERM 02-24 } patch onto Malcolm es CQ) 14 00:00: 23:59 the skin Medica l mg/24 hr 00 :00 daily for Center patch 30 days. nicotine 2022-0 202- No 1{patch Q24H Place [address] (NICODERM 02-24 } patch onto [facility] CQ) 14 00:00: 23:59 the skin Medica l mg/24 hr 00 :00 daily for Center patch 30 days. nicotine 2022- No 1{patch Q24H Place [address] (NICODERM 02-24-23 } patch onto [facility] CQ) 14 00:00: 23:59 the skin Medica l mg/24 hr 00 :00 daily for Center patch 30 days. nicotine 2022-2022- No 1{patch Q24H Place [address] (NICODERM 02-24-23 } patch onto [facility] CQ) 14 00:00: 23:59 the skin Medica l mg/24 hr 00 :00 daily for Center patch 30 days. nicotine 2022-0 2022- No 1{patch Q24H Place [address] (NICODERM 623 } patch onto Aml[facility] es CQ) 14 00:00: 23:59 the skin Medica l mg/24 hr 00 :00 daily for Center patch 30 days. nicotine 2022-0 2022- No 1{patch Q24H Place [address] (NICODERM 02-2423 } patch onto [facility] CQ) 14 00:00: 23:59 the skin Medica l mg/24 hr 00 :00 daily for Center patch 30 days. methadone 2022-0 2022- No Cancer 2mg Take [address] (DOLOPHINE) 02-24 07-07 associated (2 mg [facility]ukes 5 mg/5 mL 00:00: 00:00 pain total) by Ga dical solution 00 :00 mouth Center every 12 (twelve) hours. morphine 10 2022-0 Yes 5mg Take 2.[address] mg/5 mL 6-22 mLs (5 mg [facility]ukes solution 08:23: total) by [facility] 13 mouth Center every 4 (four) hours as needed for Pain. Max Daily Amount: 30 mg ondansetron 2022-0 Yes 8mg Take 1 CHI [...] (eight) hours as needed for Nausea. ondansetron 3-0 Yes 8mg Take [address] (ZOFRAN) [...] (eight) hours as needed for Nausea. gabapentin 2022-0 2022- No 300mg Take [address] (NEURONTIN) -25 03-22 (300 mg Luke s 300 mg/6 mL 00:00: 23:59 total) by Medical (6 mL) Soln 00 :00 mouth 3 Cente r solution (three) times daily as needed (sharp pain) for up to 30 days. sennosides 2022-0 2022- No 10mL QD Take [...] up to 30 days. sennosides 2022-0 2022- No 10mL QD Take [...] up to 30 days. sennosides 2022-0 2022- No 10mL QD Take [...] up to 30 days. sennosides 2022-0 2022- No 10mL QD Take [...] for up to 30 days. sennosides 2022-2022- No 10mL QD Take [address] (SENOKOT) 6-25 03-22 mLs by Lukes 8.8 mg/5 mL [...] up to 30 days. sennosides 2022-0 2022- No 10mL QD Take [address] (SENOKOT) 6-25 03-22 mLs by Lukes 8.8 mg/5 mL [...] Take [address] (ZOFRAN) 4 6- 06-22 mLs (8 mg Malcolm es mg/5 [...] hours as needed for Nausea. sennosides 2023-0 3- No 10mL QD Take [address] (SENOKOT) 6- 06-22 mLs by Lukes 8.8 mg/5 mL 00:00: 00:00 mouth Medi jasmina syrup 00 :00 nightly Center for 30 days. gabapentin 2023-0 3- No 300mg Take 6 mLs CHI [...] (eight) hours as needed for Nausea. HYDROcodone 2022-2022- No Take by I St -acetaminop 5-19 05-19 mouth [facility]ukes hen (LOMITA 09:54: 00:00 every 6 Med ical 7.5-325) 24 :00 (six) Center 7.5-325 mg hours as per tablet needed for Pain (kimberlyn pain) Liquid form. HYDROcodone 2022- No Take by I St -acetaminop 5-19 05-19 mouth [facility] hen (LOMITA 09:54: 00:00 every 6 Med ical 7.5-325) 24 :00 (six) Center 7.5-325 mg hours as per tablet needed for Pain (kimberlyn pain) Liquid form. HYDROcodone 2022- No Take by I St -acetaminop 5-19 05-19 mouth [facility] hen (LOMITA 09:54: 00:00 every 6 Med ical 7.5-325) 24 :00 (six) Center 7.5-325 mg hours as per tablet needed for Pain (kimberlyn pain) Liquid form. HYDROcodone 2022- No Take by I St -acetaminop 5-19 05-19 mouth [facility] hen (LOMITA 09:54: 00:00 every 6 Med ical 7.5-325) 24 :00 (six) Center 7.5-325 mg hours as per tablet needed for Pain (kimberlyn pain) Liquid form. HYDROcodone 2022- No Take by I St -acetaminop 5-19 05-19 mouth [facility] hen (LOMITA 09:54: 00:00 every 6 Med ical 7.5-325) 24 :00 (six) Center 7.5-325 mg hours as per tablet needed for Pain (kimberlyn pain) Liquid form. HYDROcodone 2022- No Take by I St -acetaminop 5-19 05-19 mouth [facility] hen (LOMITA 09:54: 00:00 every 6 Med ical 7.5-325) [...] Cente r syrup the morning. ondansetron 2022- No 8mg Take 1 CHI [...] cancer. Max Daily Amount: 60 mg ondansetron 2022-2022- No 8mg Take 1 CHI [...] kg Heart rate 2023-03-13 11:21:03 77 /min [facility] Body temperature 2023-03-13 11:21:03 36.78 Margi [facility] Respiratory rate 2023-03-13 11:21:03 17 /min [facility] Oxygen saturation in 2023-03-13 11:21:03 98 /min [facility] Arterial blood by Medical Ce nter Pulse oximetry Systolic blood 2023-03-13 11:20:30 97 mm[Hg] [facility] Diastolic blood 2023-03-13 11:20:30 68 mm[Hg] [facility] Heart rate 2023-03-10 07:45:31 75 /min [facility] Respiratory rate 2023-03-10 07:45:31 16 /min [facility] Oxygen saturation in 2023-03-10 07:45:31 100 /min [facility] Arterial blood by Medical Ce nter Pulse oximetry Body temperature 2023-03-10 07:44:56 36.94 Margi [facility] Systolic blood 2023-03-10 07:44:15 119 mm[Hg] [facility] Diastolic blood 2023-03-10 07:44:15 86 mm[Hg] [facility] Heart rate 2023-03-09 11:34:32 74 /min [facility] Respiratory rate 2023-03-09 11:34:32 18 /min [facility] Oxygen saturation in 2023-03-09 11:34:32 99 /min [facility] Arterial blood by Medical Ce nter Pulse oximetry Body temperature 2023-03-09 11:34:02 36.61 Margi [facility] Systolic blood 2023-03-09 11:33:45 124 mm[Hg] [facility] Diastolic blood 2023-03-09 11:33:45 90 mm[Hg] [facility] Systolic blood 2023-03-08 10:30:00 136 mm[Hg] [facility] Diastolic blood 2023-03-08 10:30:00 100 mm[Hg] [facility] Heart rate 2023-03-08 10:30:00 64 /min [facility] Respiratory rate 2023-03-08 10:30:00 11 /min [facility] Oxygen saturation in 2023-03-08 10:30:00 99 /min [facility] Arterial blood by Medical Ce nter Pulse oximetry Body temperature 2023-03-08 09:54:00 36 Margi [facility] Body height 2023-03-03 12:40:00 152.4 cm [facility] Body weight 2023-03-03 12:40:00 54.885 kg [facility] BMI 2023-03-03 12:40:00 23.63 kg/m2 [facility] Body height 2023-02-28 14:00:00 154.9 cm [facility] Body weight 2023-02-28 14:00:00 56.246 kg [facility] BMI 2023-02-28 14:00:00 23.43 kg/m2 [facility] Systolic blood 2023-02-24 08:13:00 120 mm[Hg] [facility] Diastolic blood 2023-02-24 08:13:00 97 mm[Hg] [facility] Heart rate 2023-02-24 08:13:00 88 /min [facility] Body height 2023-02-24 08:13:00 154.9 cm [facility] Body weight 2023-02-24 08:13:00 56.337 kg [facility] BMI 2023-02-24 08:13:00 23.47 kg/m2 [facility] Oxygen saturation in 2023-02-24 08:13:00 100 /min [facility] Arterial blood by Medical Ce nter Pulse oximetry Body temperature 2023-02-23 08:02:00 37 Margi [facility] Systolic blood 2023-01-20 07:55:00 136 mm[Hg] [facility] Diastolic blood 2023-01-20 07:55:00 82 mm[Hg] [facility] Heart rate 2023-01-20 07:55:00 71 /min [facility] Body temperature 2023-01-20 07:55:00 36.44 Margi [facility] Respiratory rate 2023-01-20 07:55:00 18 /min [facility] Oxygen saturation in 2023-01-20 07:55:00 100 /min [facility] Arterial blood by Medical Ce nter Pulse oximetry Systolic blood 2023-01-19 12:52:00 128 mm[Hg] [facility] Diastolic blood 2023-01-19 12:52:00 85 mm[Hg] [facility] Heart rate 2023-01-19 12:52:00 66 /min [facility] Body temperature 2023-01-19 12:52:00 36.72 Margi [facility] Respiratory rate 2023-01-19 12:52:00 18 /min [facility] Oxygen saturation in 2023-01-19 12:52:00 100 /min [facility] Arterial blood by Medical Ce nter Pulse oximetry Body height 2023-01-18 04:00:00 154.9 cm [facility] Body weight 2023-01-18 04:00:00 57.561 kg [facility] BMI 2023-01-18 04:00:00 23.98 kg/m2 [facility] Procedures Procedure Date / Time Performing Clinician Source Performed GLOSSECTOMY, TOTAL 2023-03-14 07:30:00 Susanna Wick [facility] DISSECTION, NECK, RADICAL 2023-03-14 07:30[facility]00 [facility], 2023-03-14 07:30:00 Vinh Alcocer [facility] FREE FLAP PROCEDURE, 2023-03-14 07:30:00 Vinh Alcocer [facility], WITH Medical Ce roberta MICROVASCULAR ANASTOMOSIS FLAP PROCEDURE, MUSCLE, 2023-03-14 07:30:[address] [facility] CREATION, FLAP, ROTATION 2023-03-14 07:30:00 Vinh Alcocer [facility] POCT-GLUCOSE METER 2023-03-13 11:44:00 Susanna Wick [facility] POCT-GLUCOSE METER 2023-03-13 06:05:00 Susanna Wick [facility] BASIC METABOLIC PANEL 2023-03-13 03:53:00 [facility] MAGNESIUM 2023-03-13 03:53:[facility]23-03-13 03:53:[facility] PO[facility] 2023-03-13 00:08:00 Susanna Wick [facility] POCT-GLUCOSE METER 2023-03-12 15:54:00 Debra [facility] POCT-GLUCOSE METER 2023-03-12 12:22:00 Debra [facility] POCT-GLUCOSE METER 2023-03-12 06:14:00 Debra [facility] BASIC METABOLIC PANEL 2023-03-12 03:31:00 [facility] MAGNESIUM 2023-03-12 03:31:[facility] 2023-03-12 03:31:00 Cayden [facility] POCT-GLUCOSE METER 2023-03-11 23:54:00 Susanna Wick [facility] POCT-GLUCOSE METER 2023-03-11 16:29:00 Debra [facility] POCT-GLUCOSE METER 2023-03-11 12:28:00 Debra [facility] POCT-GLUCOSE METER 2023-03-11 06:03:00 [facility] 2023-03-11 04:02:00 [facility] MAGNESIUM 2023-03-11 04:02:00 Cayden [facility] PHOSPHORUS 2023-03-11 04:02:00 Cayden [facility] BASIC METABOLIC PANEL 2023-03-10 06:07:00 [facility] 2023-03-10 06:07:00 Cayden [facility] PHOSPHORUS 2023-03-10 06:07:00 [facility] PO[facility]SE [facility] 2023-03-10 05:58:00 Debra [facility] POCT-GLUCOSE METER 2023-03-09 23:19:00 Susanna Wick [facility] POCT-GLUCOSE METER 2023-03-09 17:49:00 Debra [facility] POCT-GLUCOSE METER 2023-03-09 11:35:00 Debra [facility] POCT-GLUCOSE METER 2023-03-09 06:08:00 Debra [facility] CBC W/PLT COUNT & AUTO 2023-03-09 04:54:00 Cayden [facility] BASIC METABOLIC PANEL 2023-03-09 04:54:00 [facility] MAGNESIUM 2023-03-09 04:54:00 Cayden [facility] PHOSPHORUS 2023-03-09 04:54:00 Cayden [facility] ABORH, MANUAL 2023-03-09 04:54:00 Cayden [facility] CBC W/PLT COUNT & AUTO 2023-03-09 04:54:00 Cayden [facility] POCT-GLUCOSE METER 2023-03-08 23:36:00 Debra [facility] POCT-GLUCOSE METER 2023-03-08 17:43:00 Debra [facility] POCT-GLUCOSE METER 2023-03-08 11:29:00 Debra [facility] INSERTION, GASTROSTOMY 2023-03-08 07:55:00 Jose Snyder [facility] TUBE, LAPAROSCOPIC Medical Cente r POCT , URINE 2023-03-08 07:31:00 Sofie Blackwood [facility] TYPE AND SCREEN, 2023-03-08 07:28:00 Jose Snyderncer [facility] POCT-GLUCOSE METER 2023-03-08 05:51:00 Debra [facility] CBC W/PLT COUNT & AUTO 2023-03-08 03:29:00 [facility] 2023-03-08 03:29[facility]-03-08 03:29[facility]23-03-08 [facility] AUTO 2023-03-08 03:29:00 Lito Hernandez [facility], I [facility] DIFFERENTIAL [facility] POCT-GLUCOSE METER 2023-03-07 23:30:00 Debra [facility] POCT-GLUCOSE METER 2023-03-07 17:42:00 Derba [facility] POCT-GLUCOSE METER 2023-03-07 12:05:00 Debra [facility] POCT-GLUCOSE METER 2023-03-07 06:28:00 Debra [facility] CBC W/PLT COUNT & AUTO 2023-03-07 04:54:00 [facility]OLIC PANEL 2023-03-07 04:54:00 CaydenZak [facility] MAGNESIUM 2023-03-07 04:54:00 [facility] 2023-03-07 04:54:00 Kevinsharynmary [facility] CBC W/PLT COUNT & AUTO 2023-03-07 04:54:00 Lito Hernandez [facility] DIFFERENTIAL [facility] POCT-GLUCOSE METER 2023-03-06 23:58:00 Susanna Wick [facility] POCT-GLUCOSE METER 2023-03-06 17:09:00 Debra [facility] SCREEN, URINE 2023-03-06 14:44:00 Jose Snyder [facility] POCT-GLUCOSE METER 2023-03-05 16:54:00 Debra [facility] POCT-GLUCOSE METER 2023-03-05 12:26:00 Susanna Wick [facility] CBC W/PLT COUNT & AUTO 2023-03-05 05:07:00 Chadd Clemente [facility] COMPREHENSIVE METABOLIC 2023-03-05 05:07:00 Chadd Clemente [facility] PREALBUMIN 2023-03-05 05:07:00 Chadd Clemente [facility] APTT 2023-03-05 05:07:00 Chadd Clemente [facility] PROTHROMBIN TIME/INR 2023-03-05 05:07:00 Chadd Clemente [facility] CBC W/PLT COUNT & AUTO 2023-03-05 05:07:00 Chadd Clemente [facility] HC LAB HIV-1 AG W/HIV-1&2 2023-03-04 12:31:00 FallNakul [facility] HEPATITIS C ANTIBODY 2023-03-04 12:31:00 Nakul Edmond [facility] PREALBUMIN 2023-03-04 12:31:00 FallNakul Vinh [facility] XR ABDOMEN/KUB 1 VIEW 2023-03-03 18:48:00 Rick Ball [facility] LARYNGOSCOPY, WITH BIOPSY 2023-03-03 16:15:00 Susanna Wick [facility] LARYNGOSCOPY, WITH BIOPSY 2023-03-03 14:48:00 Susanna Wick [facility] POCT , URINE 2023-03-03 13:08:00 Maryann Mclean [facility] CT CHEST WITH IV CONTRAST 2023-02-23 12:27:50 Prabha Winn [facility] CT NECK SOFT TISSUE WITH 2023-02-23 12:27:31 Prabha Winn [facility] IV CONTRAST [facility] XT NORMAL BLOOD (TEMPUS) 2023-02-23 10:54:00 Carlos Grajeda [facility] BASIC METABOLIC PANEL 2023-01-20 04:17:00 Mariaa Wilder [facility] MAGNESIUM 2023-01-20 04:17:00 Mariaa Wilder [facility] PHOSPHORUS 2023-01-20 04:17:00 [facility] BASIC METABOLIC PANEL 2023-01-19 05:08:00 Mariaa Wilder [facility] MAGNESIUM 2023-01-19 05:08:00 Mariaa Wilder [facility] PHOSPHORUS 2023-01-19 05:08:00 [facility] VITAMIN B12 2023-01-19 05:08:00 Meño [facility]arohit [facility] IRON, TIBC, % SAT. 2023-01-19 05:08:00 Mariaa Wilder [facility] (WITHOUT FERRITIN) Medical Cente r CT CHEST WITH IV CONTRAST 2023-01-18 14:51:00 Cesia Lau h [facility] CBC W/PLT COUNT & AUTO 2023-01-18 05:18:00 Heavenly Lausrinirupa Vannessa MOYER [facility] COMPREHENSIVE METABOLIC 2023-01-18 05:18:00 Judit Lau [facility] PANEL [facility] MAGNESIUM 2023-01-18 05:18:00 Judit Lau [facility] PHOSPHORUS 2023-01-18 05:18:00 Judit Lau [facility] CBC W/PLT COUNT & AUTO 2023-01-18 05:18:00 Heavenly Laujammie Hurd [facility] Plan of Care Planned Activity Planned Date [...] Medica l Center cervix (procedure) [code = 227361488] Future Scheduled 2019-04-[address] [facility] [address] [facility] Test 00:00:00 malignant neoplasm of Medica l Center cervix (procedure) [code = [id number]] Future Scheduled 2019-04-[address] [facility] [facility] Test 00:00:00 malignant neoplasm of Medica l Center cervix (procedure) [code = [id number]] Future Scheduled 2019-04-[address] [facility] Test 00:00:00 malignant neoplasm of Medica l Center cervix (procedure) [code = [id number]] Future Scheduled 2019-04-[address] [facility] Test 00:00:00 malignant neoplasm of Medica l Center cervix (procedure) [code = 649907555] Future Scheduled 2019-04-[address] [facility] cervix (procedure) [code = 623130191] Future Scheduled [address] [facility] 00:[facility]:00 [facility] cervix (procedure) [code = 494418113] Future Scheduled [address] [facility] 00:00:00 [facility] cervix (procedure) [code = 607042652] Future Scheduled [address] [facility] 00:00:00 [facility] cervix (procedure) [code = 667869452] Future Scheduled [address] [facility] 00:00:00 [facility] cervix (procedure) [code = 414680479] Future Scheduled [address] [facility] 00:00:00 [facility] cervix (procedure) [code = 108461573] Future Scheduled [address] [facility] 00:00:00 [facility] cervix (procedure) [code = 003763364] Future Scheduled [address] [facility] 00:00:00 [facility] cervix (procedure) [code = 488224669] Future Scheduled [address] [facility] 00:00:00 [facility] cervix (procedure) [code = 192211436] Future Scheduled [address] [facility] 00:[facility]:00 (procedure) [code = [facility] 28961353] Future Scheduled [address] [facility] 00:00:00 (procedure) [code = [facility] 43859269] Future Scheduled [address] [facility] 00:00:00 (procedure) [code = [facility] 88578968] Future Scheduled [address] [facility] 00:00:00 (procedure) [code = [facility] 79235475] Future Scheduled [address] [facility] 00:00:00 (procedure) [code = [facility] 70722426] Future Scheduled [address] [facility] 00:00:00 (procedure) [code = [facility] 02462329] Future Scheduled [address] [facility] 00:00:00 (procedure) [code = [facility] 54102773] Future Scheduled [address] [facility] 00:00:00 (procedure) [code = [facility] Center 23978984] Future Scheduled [address] [facility] 00:00:00 (procedure) [code = [facility] Center 82057749] Future Scheduled [address] [facility] 00:00:00 (procedure) [code = [facility] Center 24749470] Future Scheduled [address] [facility] 00:00:00 (procedure) [code = [facility] Center 74032001] Future Scheduled [address] [facility] 00:00:00 (procedure) [code = Medical Center 83024651] Future Scheduled 2001 DTAP/TDAP/TD VACCINES CH I [...] Type Clinicians Facility Department ID 2023-03-[address] [facility] Surgery [id number] [facility] 08:48:52 2023-03-03 Inpatient YOLANDE BARAJAS SLE [id number] [facility] 18:30:29 SUSANNA 2023-06-05 2023-06-05 Outpatient [facility] [id number] [facility] 00:00:00 00:00:00 2023-05-05 2023-05-05 Outpatient JUANITA [facility] [id number] [facility] 06:48:56 06:48:56 2023-04-12 2023-04-12 Outpatient JUANITA GRAJEDA [facility] [id number] SLEH 00:00:00 00:00:00 CARLOS 2023-04-12 2023-04-12 Outpatient JUANITA MALLOY [facility] SLE [id number] SLEH 00:00:00 00:00:00 YENIFER 2023-04-04 2023-04-04 Outpatient [facility] [id number] [facility] 06:46:17 06:46:17 2023-03-03 2023-03-22 Inpatient JUANITA WICK [facility] Surgery [id number] SLEH 12:21:00 18:52:00 SUSANNA 2023-03-13 2023-03-13 Outpatient JUANITA GRAJEDA [facility] [id number] SLEH 00:00:00 00:00:00 CARLOS 2023-03-10 2023-03-10 [facility] Nicci [facility] [id number] CHI 12:00:00 12:00:00 Encounter Carlos Hernández [facility] 2023-03-10 2023-03-10 Outpatient JUANITA GRAJEDA [facility] [id number] SLEH 00:00:00 00:00:00 CARLOS 2023-03-10 2023-03-10 [facility] [id number] [facility] 00:00:00 00:00:00 YENIFER 2023-03-08 2023-03-[address] [facility] [id number] 08:00:00 10:03:00 [facility] 2023-03-08 2023-03-[address] [facility] [id number] 07:56:00 09:55:00 Event Yash Fournier [facility] 2023-03-05 2023-03-[address] [facility] [id number] 19:31:18 19:31:18 Event [facility] 2023-03-04 2023-03-04 Travel [facility] [id number] [facility] 00:00:00 00:00:00 [facility] 2023-03-03 2023-03-[address] [facility] [id number] 16:11[facility]00 17:19[facility]00 [facility] 2023-03-[address] [facility] [id number] 13:48:00 15:23:[facility] 2023-03-01 2023-03-01 Procedure Abdoulaye Johnson [facility] [id number] 14:00:00 15:00:00 visit DebraSusanna [facility] 2023-03-01 2023-03-01 Travel [facility] [id number] [facility] 00:[facility]:00 00:00:00 [facility] 2023-02-28 2023-02-28 Outpatient YOLANDE CONTRERAS [facility] [id number] SLE 11:39:48 11:39:48 ABDOULAYE 2023-02-28 2023-02-28 Outpatient JUANITA [facility] [id number] SLE 00:00:00 00:00:00 2023-02-28 2023-02-[address] [facility] [id number] 00:00:00 00:00:00 Gypsy [facility] 2023-02-28 2023-02-28 Travel [facility] [id number] [facility] 00:[facility]:00 00:00:00 [facility] 2023-02-24 2023-02-24 Office Mellissa, [facility] [id number] 08:00:00 10:46:55 Visit [facility] 2023-02-24 2023-02-24 Outpatient YOLANDE MONET SLE [id number] SLE 07:59:33 10:46:55 [place] 2023-02-24 2023-02-[address] [facility] [id number] 00:00:00 00:00:00 [facility] 2023-02-24 2023-02-[address] [facility] [id number] 00:00:00 00:00:00 Orders [facility] Medica [facility] 2023-02-23 2023-02-[address] [facility] [id number] 11:38:18 23:59:00 Encounter [facility] 2023-02-23 2023-02-23 Outpatient YOLANDE DECKER SLE [id number] SLEH 11:38:18 23:59:00 [facility] 2023-02-23 2023-02-23 [facility], [facility] [id number] 11:37:51 11:37:[address] [facility] 2023-02-23 2023-02-23 Outpatient YOLANDE DECKER SLE [id number] SLEH 11:37:51 11:37:51 [facility] 2023-02-23 2023-02-[address] [facility] [id number] 08:00:00 11:23:03 Visit [facility] [place] 2023-02-23 2023-02-23 Outpatient EL GRAJEDA, [facility] [id number] SLE 07:59:25 11:23:03 CARLOS 2023-02-23 2023-02-23 Treatment Nicci, [facility] [id number] 10:35:00 10:50:00 [facility] 2023-02-23 2023-02-23 Outpatient EL [facility] [id number] SLE 10:44:57 10:44:57 2023-02-23 2023-02-23 Outpatient EL [facility] [id number] [facility]H 00:00:00 00:00:00 2023-02-23 2023-02-[address] [facility] [id number] 00:00:00 00:00:00 Only [facility] 2023-02-23 2023-02-[address] [facility] [id number] 00:00:00 00:00:00 ion [facility] 2023-02-21 2023-02-21 Orders Chiqui, [facility] [id number] 00:00:00 00:00:00 Only [facility] 2023-02-15 2023-02-15 Telephone Grajeda, [facility] [id number] 00:00:00 00:00:00 [facility] 2023-01-18 2023-01-20 [facility] [id number] 03:16:00 12:00:[address] [facility] 2023-01-18 2023-01-20 Inpatient ER MARIELA, [facility] Oncology [id number] SLE 03:16:00 12:00:00 KIMBERLI 2023-01-18 2023-01-18 Outpatient EL NICCI, [facility] [id number] SLEH 00:00:00 00:00:00 CARLOS 2023-01-18 2023-01-18 Travel [facility] [id number] [facility] 00:00:00 00:00:00 [facility] 2022-05-12 2022-05-12 Emergency [facility] [id number] [facility] 21:57:00 21:57:00 Amir 44 2022-05-12 2022-05-12 Emergency [facility] [id number] [facility] 21:57:00 21:57:00 44 Results Test Description Test Time Test Comments Results Result Comments Source POCT-CREATININE 2023-05-23 14:44:21 Test Item Value Reference Range Interpretation Comme nts POC-CREATININE (LORRI) 0.8 mg/dL 0.6-1.3 : [facility] 1919 Old (test code = 1859) [place] [facility], [facility] [address]: Lead Coater/Techni federico ID = [id number] for Ady Sheffield POC-EGFR (VALENTÍNAKER) (test 95 mL/min/1.73M2 Interpretation of eGFR Values code = 1860) Stage Descripti on Result G1 Normal or high >=90 G2 Mildly decreased 60-89 G3a Mildly to moderately 45-5 9 G3b Moderately to severly 30-4 4 G4 Severely decreased 15-29 G5 Kidney Failure <15Repo rted eGFR is based on the CK D-EPI 2020 equation that d oes not use a race coefficien tEstimated GFR is not as accurate as Creatinine Clearance in pr edicting glomerular filt ration rate. Estimated GFR i s not applicable for dialysis james astudillo TISSUE [id number] 18:48:03Surgical Pathology Report Case: [id number] Authorizing Provider: Susanna Wick MD Collected: 03/14/2023 09:04 AM Ordering Location: [address] Received: 03/15/2023 02:25 PM Service Pathologist: [...] - THREE LYMPH NODES, NEGATIVE FOR METASTATIC CARCINOMA(0/3)B. LYMPH NODES, RIGHT, LEVEL 1B, NECK DISSECTION: [...] MUCOSAL MARGIN NEAR TRIGONE, RIGHT BASE OF TONGUE(SEE COMMENT) - PATHOLOGIC STAGE CLASSIFICATION (pTNM, AJCC [...] CARCINOMA (0/22) Signing Pathologist Direct Phone Line: [phone] signed by Eb Toney MD on 03/24/2023 at 6:48 PMRe-excision of the positive margins (floor of mouth, retromolar trigone, right base of tongue) are negative. Clinic al correlation is recommended for the significance of the cauterized tumor at right soft tissue margin/positive margin. ORAL CAVITYLIP AND ORAL CAVITY: INCISIONAL BX, EXCISIONAL BX, RESECTION - All Elhkjvoxh1wa Edition - Protocol posted: 1SPECIMEN Procedure: Glossectomy: subtotal TUMOR Tumor F ocality: Unifocal Tumor Site: Oral cavity Tumor Subsite: [...] Not identified Number of Lymph Nodes Examined: 51PATHOLOGIC STAGE CLASSIFICATION (pTNM, AJCC 8th Edition) Reporting [...] ADDITIONAL FINDINGS Additional Findings: Epithelial hyperplasia A. 44041J. 35722I. 74100D. 17510, 46262 x 1, 57014 x 5, 04986 x 1, 40753 x 2E. 37919, 46998 x 1F. 85919K. 01065, 23740O. 17747 48398, 14843 x 1, 72851 x 1I. 08172, 17404 x 1Tongue cancerGlossectomy and bilateral neck lymph [...] cut surface. The lymph nodes and a labor service representative section of this gland are submitted as described below.B1-1 possible lymph node,bisectedB2-1 lymph node, bisectedB3-1 lymph node, trisectedB 4-1 lymph node, bisectedB5-labor service representative section of glandC. Neck, LeftPart C is received in formalin, labeled with the patient's information and "neck, left" 4.3 x 4.0 x 2.0 cm gill-pink fibrofatty tissue. There are 4 lymph nodes identified,measuring 0.3 to 1.9 cm in greatest dimension. There is also a 4 x 3 x 1.5 cm gill-fletcher gland, which is serially sectioned to reveal a gill-fletcher, lobulated cut surface.C1-C2-1 lymph node, bisectedC3-1 lymph node, sectionedC4-1 lymph node, bisectedC5-1 whole possible nodeC6-labor service representative section of glandD. Soft Tissue, OtherThe [...] are submit for frozen section. The specimen isthen inked as described below and serially sectioned [...] mucosa, 0.4 cm from the deep margin, abuttingthe right soft tissue margin, 1.2 cm from the left soft tissue margin, and 0.1 cm from the base of tongue margin (right aspect). There are two additional white lesions within the anterior/mid aspect ofthe tongue, which measure 1.5 x 0.3 x 0.2 cm, and 1.0 x 0.4 x 0.3 cm individually. They are possiblyextending from the main mass. Ink Code:Black- base of tongueRed- left soft tissueGreen- right soft ti ssueOrange- deep soft tissueRed- superior uvula soft tissueYellow- [...] to base of tongue (yellow at tip andanterior)L04-gzeeu 2, start of lmklbfbprcC44- slice 3, continuity of csmdbawajdE91- slice 4, continuity of jhtoykkxudZ80- slice 5, continuity of fllbjjplyyB06- slice 6, continuity of symqsoolwrV51- slice 7- mass, closest deep yixsupG16- slice 9, Mass, with the closest left soft tissue qovmzrW58- Slice10, labor service representative section of massD20- Slice 11, tumor abutting right soft qeihtdC80- D24- base of tongue, perpendicular sections, right side, with closest tumor to base of xasnvkO19-L28- labor service representative sections of uymzhizmrjA61- labor service representative sections of uvulaE. Soft Tissue, Other [...] a 5.0 x 4.0 x 1.0 cm aggreg ate of gill-yellow fibrofatty tissue. There are multiple lymph nodes identified, ranging from 0.2 to 3.0 cm in greatest dimension. The largest lymph node is serially sectioned, revealing multiple areas of gill-white, irregular discolorations. The lymph nodes are submitted as follows.F1-F4-1 lymph node, s erially sectioned (largest)F5- 1 lymph node, bisected F 6-1 lymph node, bisectedF7-1 lymph node, bisectedF8-1 lymph node, bisectedF9-1 lymph node, njhbhnveM85-8 lymph node, wvehzchmG47-8 lymph node, bisectedF 12-1 lymph node, bisectedF 13-4 whole possible csnyxS99-2 whole possible nodesG. Soft Tissue, Otherspecimen received fresh for intraoperative evaluation and labeled with the patient's information and "right retromolar trigone margin, true margin inked, stitch pereira anterior" is a 2.1 x 1.4 x 0.5 cm red-gill soft tissue fragment. the inked margin is re-inked blue and the anterior stitch is inkedorange. The inked margin was shaved and submitted [...] a 2.5 x 2 x 2 cm red- gill soft tissue fragment. the inked margin is re-inked blue and the anterior stitch is inked orange. The inked marginwas shaved and submitted en face for frozen evaluation. the margin for the remanent specimen was inked green, the specimen serially sectioned and entirely submitted for permanent.Cassette code:H1 = FSHH2-H4 = remanentI. Neck, LeftPart is received in formalin, labeled with the patient's information and "neck left" is a 5.0 x 3.0 x 1.5 cm aggregate of gill-yellow fibrofatty tissue. Multiple lymph nodesare identified, ranging from 0.1 to 2.0 cm in greatest dimension. The lymph nodes are submitted as fo llows.I1-I2-1 lymph node, trisectedI 3-1 lymph node, serially sectionedI4-1 lymph node, sectionedI5-1 lymph node, bisectedI6-4 whole lymph nodesI7-5 whole lymph nodesI8-4 whole lymph nodesI9-4 whole lymph vsxquW43-3 whole lymph nodesD. Soft Tissue, OtherFROZEN SECTIONSubtotal glossectomyD1-D6: Right base of tongue and anterior oropharyngeal margin, positive for malignancyReported to Dr. Wick at 11:47AM on 03/14/2023.Reported by Dr. Arce, pathologist.E. Soft Tissue, Other Right floor of mouth: - negative for malignancy.The results was reported by Dr. Arce to Dr. Wick at 11:28 AM on 03/14/2023. G. SoftTissue, OtherRight Retromolar trigone:-Negative for malignancy.The result was reported by Dr. Yazmin Wick at 12:38 PM on 03/14/2023.H. Soft Tissue, OtherRight base of tongue margin:- Negative for malignancy.The result was reported by Dr. Arce to Dr. Wick at 12:38 PM on 03/14/2023.PerformedThe interpretation of this case included the use of immunohistochemistry or special stains.D18, F17MY94 & D2-40: ozkgtyprP97- hgfnxbgwR6XJ83- dnyfslokE62- negative I10P40- negativeControl Slides Examined: In-house known positive controls were evaluated along with the test tissue. These control slides run alongside of the patients sample show appropriate staining. Internal positive and negative controls when available are evaluated Immunohistochemistry technical testing was performed at [facility], Pathology Laboratory where it was developed [...] qualified to perform high complexity clinical laboratory testing.[facility], Department of Pathology, [address] [place] [address], [facility], [facility] of [facility]ology, [address] [place] [address], [facility], Department of Pathology, [address] [place] [address] 90[address], YEXW-GLUCOSE [id number] 12:40:41 Test Item Value Reference Range Interpretation Comments POC-GLUCOSE METER 107 mg/dL 70-110 : TESTED A T [facility] 6720 (BEAKER) (test code = PAVAN Thomas [facility], 1538) [address]: Lead Coater/Techni federico ID = [id number] for TIRSO JAVIER [id number] 07:32:41 Test Item Value Reference Range Interpretation Comments MAGNESIUM (BEAKER) (test code = 2.0 mg/dL 1.6-2.6 627) Lead Coater ID - [id number] 07:32:41 Test Item Value Reference Range Interpretation Comments PHOSPHORUS (BEAKER) (test code = 5.2 mg/dL 2.3-4.7 H 604) Lead Coater ID - EOOBASIC METABOLIC [id number] 07:32:40 Test Item Value Reference Range Interpretation [...] not appl icable for dialysis patien ts Lead Coater ID - EOOPOCT-GLUCOSE [id number] 06:26:25 Test Item Value Reference Range Interpretation Comments POC-GLUCOSE METER 84 mg/dL 70-110 : TESTED A T [facility] 6720 (BEAKER) (test code = PAVAN Thomas [facility], 1538) [address]: Lead Coater/Techni federico ID = [id number] for SEMI ENFADUMOE CBC (HEMOGRAM ONLY)2023-03-22 06:07:07 Test Item Value [...] 0-0 (BEAKER) (test code = 413) POCT-GLUCOSE [id number] 23:51:48 Test Item Value Reference Range Interpretation Comments POC-GLUCOSE METER 127 mg/dL 70-110 H : TESTED A T [facility] 6720 ([facility]) (test code = [facility], 153) 87148: Lead Coater/Techni federico ID = [id number] for HANG ALMAZAN POCT-GLUCOSE [id number] 15:58:20 Test Item Value Reference Range Interpretation Comments POC-GLUCOSE METER 101 mg/dL 70-110 : TESTED A T [facility] 6720 ([facility]) (test code = [facility], 153) 48479: Lead Coater/Techni federico ID = [id number] for Al rahel, Sonali POCT-GLUCOSE [id number] 13:10:10 Test Item Value Reference Range Interpretation Comments POC-GLUCOSE METER 102 mg/dL 70-110 : TESTED A T [facility] 6720 ([facility]) (test code = [facility], 153) 91677: Lead Coater/Techni federico ID = [id number] for Al rahel, Sonali POCT-GLUCOSE [id number] 06:57:42 Test Item Value Reference Range Interpretation Comments POC-GLUCOSE METER 98 mg/dL 70-110 : TESTED A T [facility] 6720 (BEAKER) (test code = PAVAN [place], 1538) 14251: Lead Coater/Techni federico ID = [id number] for SEMI EN, HANG [id number] 06:09:48 Test Item Value Reference Range Interpretation Comments MAGNESIUM (BEAKER) (test code = 1.9 mg/dL 1.6-2.6 627) Lead Coater ID Cecilia SMITH [id number] 06:09:48 Test Item Value Reference Range Interpretation Comments PHOSPHORUS (BEAKER) (test code = 4.2 mg/dL 2.3-4.7 604) Lead Coater ID Cecilia SMITH WBASIC METABOLIC [id number] 06:09:47 Test Item Value Reference Range Interpretation [...] not appl icable for dialysis patien ts Lead Coater ID Cecilia SMITH WCBC (HEMOGRAM ONLY)2023-03-21 05:41:00 [...] 0-0 (BEAKER) (test code = 413) POCT-GLUCOSE [id number] 02:33:24 Test Item Value Reference Range Interpretation Comments POC-GLUCOSE METER 80 mg/dL 70-110 : TESTED A T [facility] 6720 ([employer]) (test code = [facility], 153) 12485: Lead Coater/Techni federico ID = [id number] for Sammy Haim deanSue POCT-GLUCOSE [id number] 18:37:31 Test Item Value Reference Range Interpretation Comments POC-GLUCOSE METER 84 mg/dL 70-110 : TESTED A T [facility] 6720 (BEAKER) (test code = [facility], 153) 42376: Lead Coater/Techni federico ID = [id number] for Power gilbertoLazaro cashli POCT-GLUCOSE [id number] 13:00:04 Test Item Value Reference Range Interpretation Comments POC-GLUCOSE METER 91 mg/dL 70-110 : TESTED A T [facility] 6720 (BEAKER) (test code = PAVAN Thomas [place], 1538) 706[address]: Lead Coater/Techni federico ID = [id number] for Angela Denny [id number] 06:24:55 Test Item Value Reference Range Interpretation Comments PHOSPHORUS (BEAKER) (test code = 3.2 mg/dL 2.3-4.7 604) Lead Coater ID - EOOBASIC METABOLIC [id number] 06:24:54 Test Item Value Reference Range Interpretation [...] not appl icable for dialysis patien ts Lead Coater ID - [id number] 06:24:54 Test Item Value Reference Range Interpretation Comments MAGNESIUM (BEAKER) (test code = 1.9 mg/dL 1.6-2.6 627) Lead Coater ID - EOOPOCT-GLUCOSE [id number] 05:44:23 Test Item Value Reference Range Interpretation Comments POC-GLUCOSE METER 73 mg/dL 70-110 : TESTED A T [facility] 6720 (BEAKER) (test code = [facility] [employer] [facility], 1538) 03339: Lead Coater/Techni federico ID = [id number] for Ramiro Pitts CBC (HEMOGRAM ONLY)2023-03-20 05:41:41 [...] 0-0 (BEAKER) (test code = 413) POCT-GLUCOSE [id number] 01:11:53 Test Item Value Reference Range Interpretation Comments POC-GLUCOSE METER 99 mg/dL 70-110 : TESTED A T [facility] 6720 (BEAKER) (test code = [facility] [employer] [facility], 1538) 65172: Lead Coater/Techni federico ID = [id number] for Ramiro Pitts POCT-GLUCOSE [id number] 18:05:19 Test Item Value Reference Range Interpretation Comments POC-GLUCOSE METER 141 mg/dL 70-110 H : TESTED A T [facility] 6720 (BEAKER) (test code = [facility] R [facility], 1538) 39335: Lead Coater/Techni federico ID = [id number] for Avery Astorga POCT-GLUCOSE [id number] 05:30:38 Test Item Value Reference Range Interpretation Comments POC-GLUCOSE METER 139 mg/dL 70-110 H : TESTED A T [facility] 6720 (BEAKER) (test code = PAVAN Thomas [facility], 1538) 94738: Lead Coater/Techni federico ID = [id number] for Ad Darline engle [id number] 02:57:20 Test Item Value Reference Range Interpretation Comments MAGNESIUM (BEAKER) (test code = 1.9 mg/dL 1.6-2.6 627) [id number] 02:57:20 Test Item Value Reference Range Interpretation Comments PHOSPHORUS (BEAKER) (test code = 3.7 mg/dL 2.3-4.7 604) BASIC METABOLIC [id number] 02:57:19 Test Item Value Reference Range Interpretation [...] 0-0 (BEAKER) (test code = 413) POCT-GLUCOSE [id number] 23:35:47 Test Item Value Reference Range Interpretation Comments POC-GLUCOSE METER 146 mg/dL 70-110 H : TESTED A T [facility] 6720 (BEAKER) (test code = [facility], 1538) 32489: Lead Coater/Techni federico ID = [id number] for Ad ams, Kimetra POCT-GLUCOSE [id number] 13:10:55 Test Item Value Reference Range Interpretation Comments POC-GLUCOSE METER 98 mg/dL 70-110 : TESTED A T [facility] 6720 (BEAKER) (test code = [facility], 1538) 78406: Lead Coater/Techni federico ID = [id number] for NIST OR, TIFFANY [id number] 02:07:47 Test Item Value Reference Range Interpretation Comments PHOSPHORUS (BEAKER) (test code = 3.7 mg/dL 2.3-4.7 604) Lead Coater ID - [id number] 02:07:46 Test Item Value Reference Range Interpretation Comments MAGNESIUM (BEAKER) (test code = 1.8 mg/dL 1.6-2.6 627) Lead Coater ID - ROBERTOOBASIC METABOLIC [id number] 02:07:46 Test Item Value Reference Range Interpretation [...] not appl icable for dialysis patien ts Lead Coater ID - ROBERTOOCBC (HEMOGRAM ONLY)2023-03-18 01:43:23 Test Item Value Reference [...] 0-0 (BEAKER) (test code = 413) POCT-GLUCOSE [id number] 06:11:57 Test Item Value Reference Range Interpretation Comments POC-GLUCOSE METER 116 mg/dL 70-110 H : TESTED A T [facility] 6720 (BEAKER) (test code = P[place] NER[place], 1538) [address]: Lead Coater/Techni federico ID = [id number] for IB ENEME, EUCHERIA BASIC METABOLIC [id number] 04:24:08 Test Item Value Reference Range Interpretation [...] not appl icable for dialysis patien ts Lead Coater ID - [id number] 04:24:08 Test Item Value Reference Range Interpretation Comments MAGNESIUM (BEAKER) (test code = 3.9 mg/dL 1.6-2.6 H 627) Lead Coater ID - [id number] 04:24:08 Test Item Value Reference Range Interpretation Comments PHOSPHORUS (BEAKER) (test code = 3.1 mg/dL 2.3-4.7 604) Lead Coater ID - ADMINCBC (HEMOGRAM ONLY)2023-03-17 03:52:15 Test [...] 0-0 (BEAKER) (test code = 413) POCT-GLUCOSE [id number] 00:05:32 Test Item Value Reference Range Interpretation Comments POC-GLUCOSE METER 125 mg/dL 70-110 H : TESTED A T [facility] 6720 ([facility]) (test code = [facility], 1538) [address]: Lead Coater/Techni federico ID = [id number] for IB ENNEDA, EUCIA POCT-GLUCOSE [id number] 18:44:19 Test Item Value Reference Range Interpretation Comments POC-GLUCOSE METER 125 mg/dL 70-110 H : Notified RN/MD: ([facility]) (test code = TESTED AT [facility] 6720 1538) [facility], [address]: Lead Coater/Techni federico ID = [id number] for Senia Villatoro POCT-GLUCOSE [id number] 13:09:35 Test Item Value Reference Range Interpretation Comments POC-GLUCOSE METER 108 mg/dL 70-110 : TESTED A T [facility] 6720 ([facility]) (test code = [facility], 1538) [address]: Lead Coater/Techni federico ID = [id number] for Senia Villatoro [id number] 05:44:01 Test Item Value Reference Range Interpretation Comments PHOSPHORUS (BEAKER) (test code = 3.4 mg/dL 2.3-4.7 604) Lead Coater ID - MMBASIC METABOLIC [id number] 05:44:00 Test Item Value Reference Range Interpretation [...] not appl icable for dialysis patien ts Lead Coater ID - [id number] 05:44:00 Test Item Value Reference Range Interpretation Comments MAGNESIUM (BEAKER) (test code = 2.6 mg/dL 1.6-2.6 627) Lead Coater ID - MMCBC (HEMOGRAM ONLY)2023-03-16 05:40:09 Test [...] 0-0 (BEAKER) (test code = 413) POCT-GLUCOSE [id number] 00:06:45 Test Item Value Reference Range Interpretation Comments POC-GLUCOSE METER 127 mg/dL 70-110 H : TESTED A T [facility] 6720 (BEAKER) (test code [facility], = 1538) [address]: Lead Coater/Techni federico ID = [id number] for Balwinder Smith POCT-GLUCOSE [id number] 17:44:55 Test Item Value Reference Range Interpretation Comments POC-GLUCOSE METER 119 mg/dL 70-110 H : TESTED A T [facility] 6720 (BEAKER) (test code = [facility], 1538) [address]: Lead Coater/Techni federico ID = [id number] for Senia Villatoro POCT-GLUCOSE [id number] 14:16:32 Test Item Value Reference Range Interpretation Comments POC-GLUCOSE METER 120 mg/dL 70-110 H : TESTED A T [facility] 6720 (BEAKER) (test code = [facility], 1538) [address]: Lead Coater/Techni federico ID = [id number] for Senia Villatoro [id number] 05:50:48 Test Item Value Reference Range Interpretation Comments MAGNESIUM (BEAKER) (test code = 1.5 mg/dL 1.6-2.6 L 627) Lead Coater ID - SARAH [id number] 05:50:48 Test Item Value Reference Range Interpretation Comments PHOSPHORUS (BEAKER) (test code = 4.0 mg/dL 2.3-4.7 604) Lead Coater ID - SARAH WBASIC METABOLIC [id number] 05:50:47 Test Item Value Reference Range Interpretation [...] not appl icable for dialysis patien ts Lead Coater ID Cecilia SMITH [facility] (HEMOGRAM ONLY)2023-03-15 05:18:47 Test Item Value Reference [...] code = 413) HGB/HCT (H&H) - STAT [id number] 16:32:34 Test Item Value Reference Range Interpretation Comments HEMOGLOBIN (BEAKER) (test code = 11.2 GM/DL 12.0-15.0 L 410) HEMATOCRIT (BEAKER) (test code = 33.0 % 36.0-45.0 L 411) BLOOD GAS, [id number] 16:32:34 Test Item Value Reference Range Interpretation [...] (BEAKER) (test code = 1819) 30.0 CALCIUM, [id number] 16:32:33 Test Item Value Reference Range Interpretation Comments CALCIUM IONIZED (BEAKER) (test 1.14 mmol/L 1.12-1.27 code = 698) PH, BLOOD (BEAKER) (test code = 7.42 1810) GLUCOSE-STAT [id number] 16:32:14 Test Item Value Reference Range Interpretation Comments GLUCOSE RANDOM (BEAKER) (test code 142 mg/dL 70-110 H = 652) BLOOD GAS, [id number] 13:13:17 Test Item Value Reference Range Interpretation [...] (BEAKER) (test code = 1819) 28.0 CALCIUM, [id number] 13:13:16 Test Item Value Reference Range Interpretation Comments CALCIUM IONIZED (BEAKER) (test 1.28 mmol/L 1.12-1.27 H code = 698) PH, BLOOD (BEAKER) (test code = 7.43 1810) POTASSIUM-STAT [id number] 13:12:06 Test Item Value Reference Range Interpretation Comments POTASSIUM (BEAKER) (test code = 4.3 meq/L 3.6-5.5 379) HGB/HCT (H&H) - STAT [id number] 13:12:06 Test Item Value Reference Range Interpretation Comments HEMOGLOBIN (BEAKER) (test code = 12.8 GM/DL 12.0-15.0 410) HEMATOCRIT (BEAKER) (test code = 38.0 % 36.0-45.0 411) GLUCOSE-STAT [id number] 13:12:05 Test Item Value Reference Range Interpretation Comments GLUCOSE RANDOM (BEAKER) (test code 119 mg/dL 70-110 H = 652) SODIUM NA-STAT [id number] 13:12:05 Test Item Value Reference Range Interpretation Comments SODIUM (BEAKER) (test code = 381) 135 meq/L 136-145 L TISSUE [id number] 12:28:43Surgical Pathology Report Case: [id number] Authorizing Provider: Susanna Wick MD Collected: 03/03/2023 04:51 PM Ordering Location: [facility] Received: 03/06/2023 10:23 AM SERVICES Pathologist: Nick Banks MD Specimen: Tongue, RIGHT ANTERIOR TONSILAR PILLAR A. RIGHT ANTERIOR TONSILLAR PILLAR, BIOPSY - LYMPHOID TISSUE, NEGATIVE FOR CARCINOMA. Signing Pathologist Direct Phone Line: [phone] signed by Nick Banks MD on 03/14/2023 at 12:28 PMImmunostains for AE1/AE3 and p40 are negative.77330, 88017, 67037Bxfgkj cancerA. TongueReceived fresh labeled with the patient's name, medical record number and "tongue" is a 0.6 x 0.3 x 0.2 cm red soft tissue fragment submitted in toto in A1.ALIA Sorto, JAMES ([facility])cmPerformed.The interpretation of this case included the use of immunohistochemistry or special stains.Control Slides Examined: In-house known positive controls were evaluated along with the test tissue. These control slides run alongside of the patients sample show appropriate staining. Internal positive and negative controls when available are evaluatedImmunohistochemistry technical testing was performed [facility] Pathology [facility] ab[facility] where it was [...] perform high complexity clinical laboratory testing.SODIUM NA-STAT [id number] 08:29:01 Test Item Value Reference Range Interpretation Comments SODIUM (BEAKER) (test code = 381) 134 meq/L 136-145 L CALCIUM, [id number] 08:29:00 Test Item Value Reference Range Interpretation Comments CALCIUM IONIZED (BEAKER) (test 1.10 mmol/L 1.12-1.27 L code = 698) PH, BLOOD (BEAKER) (test code = 7.45 1810) BLOOD GAS, [id number] 08:29:00 Test Item Value Reference Range Interpretation [...] (BEAKER) (test code = 1819) 54.0 POTASSIUM-STAT [id number] 08:27:11 Test Item Value Reference Range Interpretation Comments POTASSIUM (BEAKER) (test code = 4.4 meq/L 3.6-5.5 379) HGB/HCT (H&H) - STAT [id number] 08:27:11 Test Item Value Reference Range Interpretation Comments HEMOGLOBIN (BEAKER) (test code = 12.3 GM/DL 12.0-15.0 410) HEMATOCRIT (BEAKER) (test code = 36.0 % 36.0-45.0 411) GLUCOSE-STAT [id number] 08:27:10 Test Item Value Reference Range Interpretation Comments GLUCOSE RANDOM (BEAKER) (test code = 92 mg/dL 70-110 652) SARS-COV2/RT-PCR ([facility])2023-03-14 07:10:29 Test Item Value Reference Range Interpretation Comments SARS-COV2/RT-PCR Negative Negative The SARS-Co V-2 target (test code = nucleic acids a re not 5976857) detected in thi s specimen. Negative result [...] revoked sooner. Fact Sheet for Healthcare Providers: https://www.[employer]/Documents/Xpert%20Xpress%20SARS%20CoV-2/Fact%20Sheets/302-3802%85JYJF-FEA-1%20 HEALTHCARE%20PROVIDERS%20FACT%20SHEET.pdf Fact Sheet for Healthcare Patients: https://www.[employer]/Documents/Xpert%20Xp ress%20SARS%20CoV-2/Fact%20Sheets/302-3801%57ATNL-CLQ-3%20PATIENT%20FACT%20SHEET .[id number] 03:44:35 Test Item Value Reference Range Interpretation Comments MAGNESIUM (BEAKER) (test code = 1.9 mg/dL 1.6-2.6 627) Lead Coater LARON SMITH [id number] 03:44:35 Test Item Value Reference Range Interpretation Comments PHOSPHORUS (BEAKER) (test code = 5.0 mg/dL 2.3-4.7 H 604) Lead Coater LARON SMITH WBASIC METABOLIC [id number] 03:44:34 Test Item Value Reference Range Interpretation [...] not appl icable for dialysis patien ts Lead Coater ID - SARAH WPT/[id number] 03:35:20 Test Item Value Reference Range Interpretation [...] for patients with mechanical heart valves. SCREEN, [id number] 19:22:08 Test Item Value Reference Range Interpretation Comments TEST URINE (BEAKER) (test Negative Negative code = 583) POC-Glucose [id number] 11:56:01 Test Item Value Reference Range Interpretation Comments POC-Glucose Meter (test 95 mg/dL 70-110 : TE STED AT [facility] code = 1538) 6720 [facility], 770 30: Lead Coater/Techni federico ID = [id number] for Maite Dewey tone Lab Interpretation (test Normal code = 40589-9) [facility] [id number] 11:56:01 Test Item Value Reference Range Interpretation Comments POC-GLUCOSE METER 95 mg/dL 70-110 : TESTED A T [facility] 6720 (BEAKER) (test code = STASIN William [facility], 1538) [address]: Lead Coater/Techni federico ID = [id number] for Nort hrup, Marsha POCT-GLUCOSE [id number] 06:17:24 Test Item Value Reference Range Interpretation Comments POC-GLUCOSE METER 160 mg/dL 70-110 H : TESTED A T [facility] 6720 (BEAKER) (test code = [place], 1538) [address]: Lead Coater/Techni federico ID = [id number] for HANG ALMAZAN [id number] 04:44:38 Test Item Value Reference Range Interpretation Comments MAGNESIUM (BEAKER) (test code = 1.9 mg/dL 1.6-2.6 627) Lead Coater ID - [id number] 04:44:38 Test Item Value Reference Range Interpretation Comments PHOSPHORUS (BEAKER) (test code = 5.3 mg/dL 2.3-4.7 H 604) Lead Coater ID - EOOBASIC METABOLIC [id number] 04:44:37 Test Item Value Reference Range Interpretation [...] not appl icable for dialysis patien ts Lead Coater ID - EOOPOCT-GLUCOSE [id number] 00:21:01 Test Item Value Reference Range Interpretation Comments POC-GLUCOSE METER 108 mg/dL 70-110 : TESTED A T [facility] 6720 (BEAKER) (test code = [facility], 1538) [address]: Lead Coater/Techni federico ID = [id number] for HANG ALMAZAN POCT-GLUCOSE [id number] 16:05:36 Test Item Value Reference Range Interpretation Comments POC-GLUCOSE METER 120 mg/dL 70-110 H : TESTED A T [facility] 6720 (BEAKER) (test code = [facility], 1538) [address]: Lead Coater/Techni federico ID = [id number] for Sonali Walters POCT-GLUCOSE [id number] 12:33:49 Test Item Value Reference Range Interpretation Comments POC-GLUCOSE METER 87 mg/dL 70-110 : TESTED A T [facility] 6720 (BEAKER) (test code = [facility], 1538) [address]: Lead Coater/Techni federico ID = [id number] for Kera Harrisonia POCT-GLUCOSE [id number] 06:25:50 Test Item Value Reference Range Interpretation Comments POC-GLUCOSE METER 108 mg/dL 70-110 : TESTED A T [facility] 6720 (BEAKER) (test code = [facility], 1538) [address]: Lead Coater/Techni federico ID = [id number] for HANG ALMAZAN [id number] 04:51:06 Test Item Value Reference Range Interpretation Comments MAGNESIUM (BEAKER) (test code = 1.6 mg/dL 1.6-2.6 627) Lead Coater ID - MAXWELL [id number] 04:51:06 Test Item Value Reference Range Interpretation Comments PHOSPHORUS (BEAKER) (test code = 4.4 mg/dL 2.3-4.7 604) Lead Coater ID - MAXWELL BBASIC METABOLIC [id number] 04:51:05 Test Item Value Reference Range Interpretation [...] not appl icable for dialysis patien ts Lead Coater ID - MAXWELL BPOCT-GLUCOSE [id number] 00:05:50 Test Item Value Reference Range Interpretation Comments POC-GLUCOSE METER 118 mg/dL 70-110 H : TESTED A T [facility] 6720 ([employer]) (test code = [facility] [employer] [facility], 1538) [address]: Lead Coater/Techni federico ID = [id number] for SE GELLEREchoHANG POCT-GLUCOSE [id number] 16:40:48 Test Item Value Reference Range Interpretation Comments POC-GLUCOSE METER 99 mg/dL 70-110 : TESTED A T [facility] 6720 ([employer]) (test code = [facility] [employer] [facility], 1538) [address]: Lead Coater/Techni federico ID = [id number] for Dheeraj tovar Rosaline POCT-GLUCOSE [id number] 12:40:11 Test Item Value Reference Range Interpretation Comments POC-GLUCOSE METER 122 mg/dL 70-110 H : TESTED A T [facility] 6720 (BEAKER) (test code = PAVAN Thomas [facility], 1538) [address]: Lead Coater/Techni federico ID = [id number] for Al Sonali mcginnis POCT-GLUCOSE [id number] 06:26:58 Test Item Value Reference Range Interpretation Comments POC-GLUCOSE METER 93 mg/dL 70-110 : TESTED A T [facility] 6720 (BEAKER) (test code = PAVAN Thomas [facility], 1538) [address]: Lead Coater/Techni federico ID = [id number] for SEMI EN, HANG [id number] 04:39:11 Test Item Value Reference Range Interpretation Comments MAGNESIUM (BEAKER) (test code = 1.7 mg/dL 1.6-2.6 627) Lead Coater ID - [id number] 04:39:11 Test Item Value Reference Range Interpretation Comments PHOSPHORUS (BEAKER) (test code = 4.6 mg/dL 2.3-4.7 604) Lead Coater ID - MARCOBASIC METABOLIC [id number] 04:39:10 Test Item Value Reference Range Interpretation [...] not appl icable for dialysis patien ts Lead Coater ID - MARCOBASIC METABOLIC [id number] 06:51:27 Test Item Value Reference Range Interpretation [...] not appl icable for dialysis patien ts Lead Coater ID - [id number] 06:51:27 Test Item Value Reference Range Interpretation Comments MAGNESIUM (BEAKER) (test code = 1.6 mg/dL 1.6-2.6 627) Lead Coater ID - [id number] 06:51:27 Test Item Value Reference Range Interpretation Comments PHOSPHORUS (BEAKER) (test code = 5.1 mg/dL 2.3-4.7 H 604) Lead Coater ID - MARCOPOC-Glucose [id number] 06:10:39 Test Item Value Reference Range Interpretation Comments POC-Glucose Meter (test 117 mg/dL 70-110 H : TE STED AT [facility] code = 1538) 6720 [facility], 770 30: Lead Coater/Techni federico ID = [id number] for DARCI MONTEMAYOR A Lab Interpretation (test Abnormal code = 11911-8) [facility] [id number] 06:10:39 Test Item Value Reference Range Interpretation Comments POC-GLUCOSE METER 117 mg/dL 70-110 H : TESTED A T [facility] 6720 (BEAKER) (test code = [facility], 1538) [address]: Lead Coater/Techni federico ID = [id number] for JADE FALCONITA POCT-GLUCOSE [id number] 00:21:24 Test Item Value Reference Range Interpretation Comments POC-GLUCOSE METER 133 mg/dL 70-110 H : TESTED A T [facility] 6720 (BEAKER) (test code = [facility], 153) [address]: Lead Coater/Techni federico ID = [id number] for BELKIS FALCON POCT-GLUCOSE [id number] 18:01:01 Test Item Value Reference Range Interpretation Comments POC-GLUCOSE METER 131 mg/dL 70-110 H : TESTED A T [facility] 6720 (BEAKER) (test code = [facility], 153) [address]: Lead Coater/Techni federico ID = [id number] for [place], Yamilith POC-Glucose [id number] 11:46:52 Test Item Value Reference Range Interpretation Comments POC-Glucose Meter (test 86 mg/dL 70-110 : TE STED AT [facility] code = 1538) 6720 [facility], 770 30: Lead Coater/Techni federico ID = [id number] for Micha Gagnon Lab Interpretation (test Normal code = 26534-0) [facility] [id number] 11:46:52 Test Item Value Reference Range Interpretation Comments POC-GLUCOSE METER 86 mg/dL 70-110 : TESTED A T [facility] 6720 (BEAKER) (test code = [facility], 153) [address]: Lead Coater/Techni federico ID = [id number] for Sanc hez, Yamilith POCT-GLUCOSE [id number] 06:32:46 Test Item Value Reference Range Interpretation Comments POC-GLUCOSE METER 110 mg/dL 70-110 : TESTED A T [facility] 6720 (BEAKER) (test code = [place], 1538) [address]: Lead Coater/Techni federico ID = [id number] for HANG ALMAZAN BASIC METABOLIC [id number] 05:38:35 Test Item Value Reference Range Interpretation [...] not appl icable for dialysis patien ts Lead Coater ID - [id number] 05:38:35 Test Item Value Reference Range Interpretation Comments MAGNESIUM (BEAKER) (test code = 1.8 mg/dL 1.6-2.6 627) Lead Coater ID - [id number] 05:38:35 Test Item Value Reference Range Interpretation Comments PHOSPHORUS (BEAKER) (test code = 3.4 mg/dL 2.3-4.7 604) Lead Coater ID - DBCBC W/PLT COUNT & AUTO [id number] 05:14:51 Test Item Value Reference Range Interpretation [...] PERCENT (BEAKER) (test code = 2801) POCT-GLUCOSE [id number] 23:49:04 Test Item Value Reference Range Interpretation Comments POC-GLUCOSE METER 97 mg/dL 70-110 : TESTED A T [facility] 6720 (BEAKER) (test code = [facility], 1538) [address]263: Lead Coater/Techni federico ID = [id number] for MIGUEL ENHANG POCT-GLUCOSE [id number] 18:03:27 Test Item Value Reference Range Interpretation Comments POC-GLUCOSE METER 96 mg/dL 70-110 : TESTED A T [facility] 6720 (BEAKER) (test code = [facility], 1538) [address]: Lead Coater/Techni federico ID = [id number] for BELKIS SAMPSON POCT-GLUCOSE [id number] 12:11:29 Test Item Value Reference Range Interpretation Comments POC-GLUCOSE METER 95 mg/dL 70-110 : TESTED A T [facility] 6720 (BEAKER) (test code = [facility], 1538) 109[address]: Lead Coater/Techni federico ID = [id number] for JENNI ESTRADA BELKIS POCT , [id number] 07:31:00 Test Item Value Reference Range Interpretation Comments Test Urine, POC (test Negative code = 1622764) Control line present?, POC (test Yes code = 7715410) Background clear?, POC (test code Yes = 8142198) UPT Cassette Lot #, POC (test code 231791 = [id number]) UPT Cassette Expiration Date, POC 03/19/2024 (test code = 5188035) [facility] , [id number] 07:31:00 Test Item Value Reference Range Interpretation Comments Test Urine, POC (test Negative code = 9187445) Control line present?, POC (test Yes code = 0293084) Background clear?, POC (test code Yes = 7721767) UPT Cassette Lot #, POC (test code 200799 = 5338457) UPT Cassette Expiration Date, POC 03/19/2024 (test code = 8445602) [facility] , [id number] 07:31:00 Test Item Value Reference Range Interpretation Comments Test Urine, POC (test Negative code = 1766406) Control line present?, POC (test Yes code = 9179656) Background clear?, POC (test code Yes = 8730622) UPT Cassette Lot #, POC (test code 027690 = 9297268) UPT Cassette Expiration Date, POC 03/19/2024 (test code = 5571545) [facility] , [id number] 07:31:00 Test Item Value Reference Range Interpretation Comments Test Urine, POC (test Negative code = 2747102) Control line present?, POC (test Yes code = 9748138) Background clear?, POC (test code Yes = 8634533) UPT Cassette Lot #, POC (test code 590998 = 0955302) UPT Cassette Expiration Date, POC 03/19/2024 (test code = 5937071) [facility]-Glucose [id number] 06:42:59 Test Item Value Reference Range Interpretation Comments POC-Glucose Meter (test 95 mg/dL 70-110 : TE STED AT [facility] code = 1538) 6720 [facility], 770 30: Lead Coater/Techni federico ID = [id number] for Shayy Olivarez Lab Interpretation (test Normal code = 71266-5) [facility]-GLUCOSE [id number] 06:42:59 Test Item Value Reference Range Interpretation Comments POC-GLUCOSE METER 95 mg/dL 70-110 : TESTED A T [facility] 6720 (BEAKER) (test code = [facility] R [facility], 1538) [address]: Lead Coater/Techni federico ID = [id number] for Kathleenmesha logan Shayy [id number] 04:49:08 Test Item Value Reference Range Interpretation Comments PHOSPHORUS (BEAKER) (test code = 4.0 mg/dL 2.3-4.7 604) Lead Coater ID - ADMINBASI METABOLIC [id number] 04:49:07 Test Item Value Reference Range Interpretation [...] not appl icable for dialysis patien ts Lead Coater ID - [id number] 04:49:07 Test Item Value Reference Range Interpretation Comments MAGNESIUM (BEAKER) (test code = 1.9 mg/dL 1.6-2.6 627) Lead Coater ID - ADMINCBC W/PLT COUNT & AUTO [id number] 04:23:38 Test Item Value Reference Range Interpretation [...] PERCENT (BEAKER) (test code = 2801) POCT-GLUCOSE [id number] 23:51:35 Test Item Value Reference Range Interpretation Comments POC-GLUCOSE METER 115 mg/dL 70-110 H : TESTED Facundo Anjelica [facility] 6720 (BEAKER) (test code = [place], 1538) 15375: Lead Coater/Techni federico ID = [id number] for Shayy Bahena POCT-GLUCOSE [id number] 18:02:27 Test Item Value Reference Range Interpretation Comments POC-GLUCOSE METER 97 mg/dL 70-110 : TESTED A T [facility] 6720 (BEAKER) (test code = [facility], 1538) 58069: Lead Coater/Techni federico ID = [id number] for JENNI ESTRADA, BELKIS POCT-GLUCOSE [id number] 12:21:50 Test Item Value Reference Range Interpretation Comments POC-GLUCOSE METER 82 mg/dL 70-110 : TESTED A T [facility] 6720 (BEAKER) (test code = [facility], 1538) 02352: Lead Coater/Techni federico ID = [id number] for JENNI ESTRADA, BELKIS POCT-GLUCOSE [id number] 06:39:31 Test Item Value Reference Range Interpretation Comments POC-GLUCOSE METER 82 mg/dL 70-110 : TESTED A T [facility] 6720 (BEAKER) (test code = [facility], 1538) 88331: Lead Coater/Techni federico ID = [id number] for Trang logan Shayy [id number] 05:41:53 Test Item Value Reference Range Interpretation Comments MAGNESIUM (BEAKER) (test code = 1.9 mg/dL 1.6-2.6 627) Lead Coater ID - [id number] 05:41:53 Test Item Value Reference Range Interpretation Comments PHOSPHORUS (BEAKER) (test code = 4.3 mg/dL 2.3-4.7 604) Lead Coater ID - ADMINBASIC METABOLIC [id number] 05:41:52 Test Item Value Reference Range Interpretation [...] not appl icable for dialysis patien ts Lead Coater ID - ADMINCBC W/PLT COUNT & AUTO [id number] 05:18:36 Test Item Value Reference Range Interpretation [...] PERCENT (BEAKER) (test code = 2801) POCT-GLUCOSE [id number] 00:09:35 Test Item Value Reference Range Interpretation Comments POC-GLUCOSE METER 160 mg/dL 70-110 H : TESTED A T [facility] 6720 (BEAKER) (test code = [facility], 1538) [id number]: Lead Coater/Techni federico ID = [id number] for Shayy Bahena POCT-GLUCOSE [id number] 17:21:07 Test Item Value Reference Range Interpretation Comments POC-GLUCOSE METER 75 mg/dL 70-110 : TESTED A T [facility] 6720 (BEAKER) (test code = [facility], 1538) [id number]: Lead Coater/Techni federico ID = [id number] for Roe Sonali isaac Screen, [id number] 15:22:58 Test Item Value Reference Range Interpretation Comments Preg Test, Ur (test code = 2-1) Negative Negative Lab Interpretation (test code = Normal 64834-7) [facility] [id number] 15:22:58 Test Item Value Reference Range Interpretation Comments Preg Test, Ur (test code = 2112-1) Negative Negative Lab Interpretation (test code = Normal 59554-3) [facility], [id number] 15:22:58 Test Item Value Reference Range Interpretation Comments Preg Test, Ur (test code = 2-1) Negative Negative Lab Interpretation (test code = Normal 43138-8) [facility], [id number] 15:22:58 Test Item Value Reference Range Interpretation Comments Preg Test, Ur (test code = 2-1) Negative Negative Lab Interpretation (test code = Normal 25854-2) [facility], [id number] 15:22:58 Test Item Value Reference Range Interpretation Comments TEST URINE (BEAKER) (test Negative Negative code = 583) POCT-GLUCOSE [id number] 17:25:51 Test Item Value Reference Range Interpretation Comments POC-GLUCOSE METER 87 mg/dL 70-110 : TESTED A T [facility] 6720 (BEAKER) (test code = [facility], 1538) 42676: Lead Coater/Techni federico ID = [id number] for ELY CEBALLOSA POCT-GLUCOSE [id number] 12:49:55 Test Item Value Reference Range Interpretation Comments POC-GLUCOSE METER 93 mg/dL 70-110 : TESTED A T [facility] 6720 (BEAKER) (test code = [facility], 1538) 85787: Lead Coater/Techni federico ID = [id number] for JUDIT S, [place] COMPREHENSIVE METABOLIC [id number] 05:47:37 Test Item Value Reference Range Interpretation [...] code = 354) CREATININE 0.61 mg/dL 0.57-1.25 (VALENTÍNAKER) (test code = 358) GLUCOSE RANDOM 93 mg/dL 70-105 (LORRI) (test code = 652) CALCIUM (VALENTÍNAKER) 9.8 mg/dL 8.4-10.2 (test code = 697) AST (SGOT) 15 U/L 5-34 (BEAKER) (test code = 353) ALT (SGPT) 6 U/L 6-55 (BEAKER) (test code = 347) EGFR (VALENTÍNAKER) 116 Interpretatio n of eGFR (test code [...] glom erular filtration rate . Estimated GFR i s not applicable for dialysis patients Lead Coater ID - [id number] 05:41:52 Test Item Value Reference Range Interpretation Comments PREALBUMIN (LORRI) (test code = 26 mg/dL 14-45 586) Lead Coater ID - [id number] 05:34:03 Test Item Value Reference Range Interpretation Comments PARTIAL THROMBOPLASTIN TIME 35.5 seconds 22.5-36.0 (LORRI) (test code = 760) PROTHROMBIN TIME/[id number] 05:33:23 Test Item Value Reference Range Interpretation Comments PROTIME (LORRI) (test code = 13.1 seconds 11.9-14.2 759) INR (LORRI) (test code = 370) 1.05 <=5.90 RECOMMENDED COUMADIN/WARFARIN INR THERAPY RANGESSTANDARD DOSE: 2.0 - 3.0 Includes: PROPHYLAXIS for venous thrombosis, systemic embolization; TREATMENT for venous thrombosis and/or pulmonary embolus.HIGH RISK: Target INR is 2.5-3.5 for patients with mechanical heart valves.CBC W/PLT COUNT & AUTO [id number] 05:25:30 Test Item Value Reference Range Interpretation [...] code = 2801) HIV-1 ANTIGEN WITH HIV-1/2 [id number] 13:53:09 Test Item Value Reference Range Interpretation Comments HIV-1 ANTIGEN WITH HIV 1\\T\\2 Nonreactive Nonreactive ANTIBODY (2) (LORRI) (test code = 2586) Lead Coater ID - ADMINHEPATITIS C [id number] 13:53:08 Test Item Value Reference Range Interpretation Comments HEPATITIS C ANTIBODY (LORRI) Nonreactive Nonreactive (test code = 367) Lead Coater ID - [id number] 13:38:31 Test Item Value Reference Range Interpretation Comments PREALBUMIN (LORRI) (test code = 30 mg/dL 58) Lead Coater ID - ADMINXR ABDOMEN/KUB 1 VIEW [id number] 19:34:44 [facility] 1980 Sex: FTECHNIQUE: XR ABDOMEN/KUB 1 VIEW PORTABLEINDICATION: DHT PLacement.COMPARISON: None.FINDINGS:Feedingtube tip projected over the gastric antrum. Nonobstructive bowelgas pattern. Lower pelvis is incompletely included on this examination.Supine radiographs are insensitive for detection of free intraperit onealair.IMPRESSION:Feeding tube tip projected over the gastric antrum.Electronically Signed By: Jarvis Welsh03/03/2023 19:36 CDTWorkstation Name: [id number] CHEST WITH IV [id number] 17:28:20 [facility] : 1980 Sex: FCT [...] Signed By: Jude Calero02/25/2023 17:30 CDTWorkstation Name: [id number] NECK SOFT TISSUE WITH IV [id number] 14:07:41 [facility] : 1980 Sex: FExamination:CT [...] Signed By: Natacha Mondragon02/23/2023 14:09 CDTWorkstation Name: [id number], CHEST, WITH [id number] 07:29:00 Unlisted Reason for Exam - Click Yes and Enter Reason Below->No [facility] : 1980 Sex: [...] Nicholas MDReport Verified Da te/Time: 01/20/2023 07:29:13 [id number] 05:13:48 Test Item Value Reference Range Interpretation Comments MAGNESIUM (BEAKER) (test code = 1.7 mg/dL 1.6-2.6 627) Lead Coater ID - [id number] 05:13:48 Test Item Value Reference Range Interpretation Comments PHOSPHORUS (BEAKER) (test code = 4.1 mg/dL 2.3-4.7 604) Lead Coater ID - MMBASIC METABOLIC [id number] 05:13:47 Test Item Value Reference Range Interpretation [...] not appl icable for dialysis patien ts Lead Coater ID - MMBASI METABOLIC [id number] 06:42:56 Test Item Value Reference Range Interpretation [...] not appl icable for dialysis patien ts Lead Coater ID - [id number] 06:42:56 Test Item Value Reference Range Interpretation Comments MAGNESIUM (BEAKER) (test code = 1.8 mg/dL 1.6-2.6 627) Lead Coater ID - [id number] 06:42:56 Test Item Value Reference Range Interpretation Comments PHOSPHORUS (BEAKER) (test code = 4.0 mg/dL 2.3-4.7 604) Lead Coater ID - ADMINVITAMIN [id number] 06:39:31 Test Item Value Reference Range Interpretation Comments VITAMIN B12 (BEAKER) (test code = 341 pg/mL 213-816 774) Lead Coater ID - ADMINIRON, TIBC, % SAT. (WITHOUT FERRITIN)2023-01-19 06:11:34 Test Item Value Reference Range Interpretation Comments IRON (BEAKER) (test code = 547) 22.0 ug/dL 40.0-160.0 L TOTAL IRON BINDING CAPACITY 394 ug/dL 250-450 (BEAKER) (test code = 769) IRON % SATURATION (2) (BEAKER) 6 % 20-55 L (test code = 2590) Lead Coater ID - [id number] 06:40:41 Test Item Value Reference Range Interpretation Comments MAGNESIUM (BEAKER) 1.5 mg/dL 1.6-2.6 L Specimen slightly (test code = 627) hemolyzed Lead Coater ID - SARAH [id number] 06:40:41 Test Item Value Reference Range Interpretation Comments PHOSPHORUS (BEAKER) 3.6 mg/dL 2.3-4.7 Specimen slightly (test code = 604) hemolyzed Lead Coater ID - SARAH WCOMPREHENSIVE METABOLIC [id number] 06:40:41 Test Item Value Reference Range Interpretation [...] not appl icable for dialysis patien ts Lead Coater ID - SARAH WCBC W/PLT COUNT & AUTO [id number] 05:43:39 Test Item Value Reference Range Interpretation [...] PERCENT (BEAKER) (test code = 2801) Ethanol [id number] 02:25:00 Test Item Value Reference Range Interpretation [...] 1. 8-10.1 mIU/mL Complete Blood Count Auto [id number] 22:56:00 Test Item Value Reference Range Interpretation [...] code = NRBCP) 0 % Comprehensive Metabolic [id number] 22:56:00 Test Item Value Reference Range Interpretation [...] 106 U/L 46-116 N = ALP) Ethanol [id number] 22:56:00 Test Item Value Reference Range Interpretation Comments Ethanol (test code 242 mg/dL The pharm acological = ETOH) response to blo od alcohol levels mayvary from individual to i ndividual. The fatal ginna ntrationhas been reported t o be >400mg/dL. Manual Differential, [id number] 22:56:00 Test Item Value Reference Range Interpretation [...] 1+ None Seen A Coronavirus PCR, COVID19 [id number] 22:52:00 Test Item Value Reference Range Interpretation Comments Coronavirus PCR, For use under Emergency COVID19 Rapid (test Use Authorization (EUA) code = SARSCOV2) only. Coronavirus PCR, Reference Range: COVID19 Rapid (test Negative code = HHSRYPH35.1) SARS-CoV-2 PCR Result: Negative by RT-PCR (test code = SARS-CoV-2 PCR Result:) COVID-19 Status: AsymptomaticUA, Urinalysis Rflx Cult/[id number] 22:52:00 Test Item Value Reference Range Interpretation Comments Color,Urine (test code = UCOL) Yellow Yellow Clarity,Urine (test code = Clear Clear UCLAR) Ph, Urine (test code = UPH) 6.0 5.0-9.0 N Specific [place],Urine (test 1.020 1.005-1.030 N code = USG) [...] A code = ULEU) UF REFLEXUF REFLEXUrine [id number] 22:52:00 Test Item Value Reference Range Interpretation Comments RBC,Urine (test code = URBCUF) 0-2 /HPF 0-2 WBC,Urine (test code = UWBCUF) 0-5 /HPF 0-5 Epithelial Cell,Urine (test 0-5 /HPF 0-5 code = UECUF) Casts,Urine (test code = 0-5 /LPF None Seen UCASTUF) Bacteria,Urine (test code = None Seen /hpf None Seen UBACTUF) UF REFLEXUF REFLEXDrug Screen,[id number] 22:52:00 Test Item Value Reference Range Interpretation [...]
--- NOTE | 2023-06-07 03:50 | ER ---
Nurse's Notes [facility] Name: Brii Garcia Age: 43 yrs Sex: Female : 1980 Arrival Date: 06/07/2023 Time: 03:20 Bed 5 Private MD: Diagnosis: Tracheostomy dislodgment of catheter Presentation: 06/07 03:27 Chief complaint: EMS states: PT ASLEEP, SUDDEN ONSET OF SOB, TRIED TO CLEAN rv TRACHEOSTOMY WHEN IT CAME OUT, UNABLE TO PUT IT BACK IN. DENIES ANY PAIN OR SOB AT THE TIME OF ARRIVAL. Coronavirus screen: At this time, the client does not indicate any symptoms associated with coronavirus-19. Ebola Screen: No symptoms or risks identified at this time. Initial Sepsis Screen: Does the patient meet any 2 criteria? No. Patient's initial sepsis screen is negative. Does the patient have a suspected source of infection? No. Patient's initial sepsis screen is negative. Risk Assessment: Do you want to hurt yourself or someone else? Patient reports no desire to harm self or others. Onset of symptoms was June 07, 2023. 03:27 Method Of Arrival: EMS: [facility] rv 03:27 Acuity: ANG 3 rv Triage Assessment: 03:29 General: Appears comfortable, Behavior is calm, cooperative. Pain: Denies pain. Neuro: rv Level of Consciousness is awake, alert, obeys commands, Oriented to person, place, time, situation. Cardiovascular: Capillary refill < 3 seconds Patient's skin is warm and dry. Respiratory: Reports TRACHEOSTOMY TUBE CAME OUT WHILE CLEANING. GI: No signs and/or symptoms were reported involving the gastrointestinal system. : No signs and/or symptoms were reported regarding the genitourinary system. Derm: Skin is intact. Historical: - PMHx: 03:29 Anxiety; Squamous cell carcinoma of tongue; rv - PSHx: 03:29 Carcinoma removed; G tube placement; right leg; total tongue removal; tracheostomy; rv - Immunization history:: Adult Immunizations up to date. - Social history:: Smoking status: unknown. Screenin:32 [facility] ED Fall Risk Assessment (Adult) History of falling in the last 3 months, rv including since admission No falls in past 3 months (0 pts). [facility] ED Fall Risk Assessment (Adult) Score/Fall Risk Level 0 - 2 = Low Risk Oriented to surroundings, Maintained a safe environment, Educated pt \T\ family on fall prevention, incl call for assistance when getting out of bed, Assessed \T\ reinforced patient's understanding of fall precautions, Provided non-skid footwear, Hourly rounding (assess needs \T\ fall precautionary measures) done, Used ambulatory aids as needed (educated on \T\ assisted with), Used gait belt as appropriate. Abuse screen: Denies threats or abuse. Denies injuries from another. Nutritional screening: No deficits noted. Tuberculosis screening: No symptoms or risk factors identified. Assessment: 03:32 Reassessment: SEE TRIAGE NOTES. rv 04:12 Reassessment: ALEJANDRO RT SUCCESSFULLY PLACED NEW TRACHEOSTOMY TUBE. PT TOLERATED WELL. rv VS STABLE. Vital Signs: 03:27 BP 101 / 84; Pulse 87; Resp 18; Temp 98; Pulse Ox 100% ; Weight 53.52 kg; Height 5 ft. rv 5 in. ; Pain 0/10; 03:28 BP 101 / 84; Pulse 85; Resp 18; Temp 97.8; Pulse Ox 100% on R/A; Weight 53.52 kg; oe Height 5 ft. 5 in. ; 03:28 Body Mass Index 19.64 (53.52 kg, 165.1 cm) oe 03:27 Pain Scale: Adult rv ED Course: 03:27 Patient arrived in ED. rv 03:27 Lakhwinder Darden MD is Attending Physician. sp3 03:29 Triage completed. rv 03:29 Arm band placed on right wrist. rv 03:32 Patient has correct armband on for positive identification. Client placed on continuous rv cardiac and pulse oximetry monitoring. NIBP monitoring applied. 04:13 No provider procedures requiring assistance completed. Patient did not have IV access rv during this emergency room visit. Administered Medications: No medications were administered Medication: 03:32 VIS not applicable for this client. rv Outcome: 03:49 Discharge ordered by . sp3 04:13 Discharged to home via wheelchair, IN THE LOBBY, WAITING FOR RIDE. rv 04:13 Condition: good 04:13 Discharge instructions given to patient, Instructed on discharge instructions, follow up and referral plans. Demonstrated understanding of instructions, follow-up care, 04:14 Patient left the ED. rv Signatures: Stephan Pang Ronaldo, RN RN rv Lakhwinder Darden, MD sp3
--- NOTE | 2023-06-07 03:50 | EDPHYS ---
Physician Documentation [facility] Name: Brii Garcia Age: 43 yrs Sex: Female : 1980 Arrival Date: 06/07/2023 Time: 03:20 Bed 5 Private MD: ED Physician Lakhwinder Darden HPI: 06/07 03:35 This 43 yrs old Black Female presents to ER via EMS with complaints of trach problem. sp3 03:35 43-year-old female with history of squamous cell carcinoma of the tongue well-known to sp3 the ED now presents again for chief complaint her tracheostomy is now dislodged and she is unable to place it back in. She has a set 6.5 Shiley uncuffed tracheostomy. She denies any significant bleeding though she states the area is inflamed and tender. She denies any chest pain, difficulty breathing, shortness of breath, nausea, vomiting, diarrhea, fever, or any other signs or symptoms on ROS at this time.. Historical: - PMHx: 03:29 Anxiety; Squamous cell carcinoma of tongue; rv - PSHx: 03:29 Carcinoma removed; G tube placement; right leg; total tongue removal; tracheostomy; rv - Immunization history:: Adult Immunizations up to date. - Social history:: Smoking status: unknown. ROS: 03:38 Constitutional: Negative for fever, chills, and weight loss, Eyes: Negative for injury, sp3 pain, redness, and discharge, Cardiovascular: Negative for chest pain, palpitations, and edema, Respiratory: Negative for shortness of breath, cough, wheezing, and pleuritic chest pain, Abdomen/GI: Negative for abdominal pain, nausea, vomiting, diarrhea, and constipation, Back: Negative for injury and pain, MS/Extremity: Negative for injury and deformity, Skin: Negative for injury, rash, and discoloration, Neuro: Negative for headache, weakness, numbness, tingling, and seizure, Psych: Negative for depression, anxiety, suicide ideation, homicidal ideation, and hallucinations, Allergy/Immunology: Negative for hives, rash, and allergies, 03:38 All other systems are negative, Exam: 03:38 Constitutional: This is a well developed, well nourished patient who is awake, alert, sp3 and in no acute distress. Head/Face: Normocephalic, atraumatic. Eyes: Pupils equal round and reactive to light, extra-ocular motions intact. Lids and lashes normal. Conjunctiva and sclera are non-icteric and not injected. Cornea within normal limits. Periorbital areas with no swelling, redness, or edema. Chest/axilla: Normal chest wall appearance and motion. Nontender with no deformity. No lesions are appreciated. Cardiovascular: Regular rate and rhythm with a normal S1 and S2. No gallops, murmurs, or rubs. Normal PMI, no JVD. No pulse deficits. Respiratory: Lungs have equal breath sounds bilaterally, clear to auscultation and percussion. No rales, rhonchi or wheezes noted. No increased work of breathing, no retractions or nasal flaring. Abdomen/GI: Soft, non-tender, with normal bowel sounds. No distension or tympany. No guarding or rebound. No evidence of tenderness throughout. 03:38 Neck: Tracheostomy site patent with erythematous inflammation without significant bleeding or drainage., Vital Signs: 03:27 BP 101 / 84; Pulse 87; Resp 18; Temp 98; Pulse Ox 100% ; Weight 53.52 kg; Height 5 ft. rv 5 in. ; Pain 0/10; 03:28 BP 101 / 84; Pulse 85; Resp 18; Temp 97.8; Pulse Ox 100% on R/A; Weight 53.52 kg; oe Height 5 ft. 5 in. ; 03:28 Body Mass Index 19.64 (53.52 kg, 165.1 cm) oe 03:27 Pain Scale: Adult rv MDM: 03:27 Patient medically screened. sp3 03:38 Data reviewed: vital signs, nurses notes, old medical records. ED course: 43-year-old sp3 female well-known to the ED now with tracheostomy dislodgment. Respiratory has been paged and are assisting and placing new catheter. We will attempt 6.5 or smaller with subsequent discharge.. 03:48 ED course: 7.5 tracheostomy with inner cannula placed by respiratory. Patient will be sp3 safely discharged home at this time.. Administered Medications: No medications were administered Disposition Summary: 06/07/23 03:49 Discharge Ordered Notes: Location: Home sp3 Condition: Stable sp3 Diagnosis - Tracheostomy dislodgment of catheter sp3 Followup: sp3 - With: Private Physician - When: Upon discharge from the Emergency Department - Reason: Continuance of care Discharge Instructions: - Discharge Summary Sheet sp3 - How to Clean a Tracheostomy Tube, Adult sp3 Forms: - Medication Reconciliation Form sp3 - Thank You Letter sp3 - Antibiotic Education sp3 - Prescription Opioid Use sp3 - Patient Portal Instructions sp3 - Leadership Thank You Letter sp3 Signatures: Marcin Askew RN RN rv Lakhwinder Darden MD MD sp3
[2023-06-07 04:18] VITALS: BP 101/84; O2SAT 100
[2023-06-07 04:20] VITALS: TEMP 97.8
== END 2023-06-07 04:14 | disposition home or self-care (01) ==
LOC: ER 03:20
DX: Z43.0 Encounter for attention to tracheostomy (principal)
CPT/HCPCS: 99283

== ENCOUNTER 2023-06-27 15:12 | Emergency (ER) | payer OTHER ==
--- OUTSIDE RECORDS SUMMARY | 2023-06-27 15:20 | XMS REPORT | Continuity of Care Document ---
:1980 Author Organization [facility] t Address [address] [facility] [address] [place] [address] Care Team Providers Name Role Phone SUSANNA WICK Attending Clinician Unavailable ABDOULAYE JOHNSON Attending Clinician Unavailable JANAE MCDONALD Attending Clinician Unavailable ESRENITY SMITH LOLY Attending Clinician Unavailable EDDI TAYLOR Attending Clinician Unavailable CARLOS GRAJEDA Attending Clinician Unavailable YENIFER MALLOY Attending Clinician Unavailable Carlos Grajeda MD Attending Clinician [phone] Jose Rodrigues MD Attending Clinician Demetrius Dugan MD Attending Clinician Yash Fournier MD Attending Clinician [phone] Fredrick Alvin Attending Clinician Unavailable Caridad KHALIL, Maryann Attending Clinician Delano KHALIL, Susanna Owens Attending Clinician Alex KHALIL, Abdoulaye Mehta Attending Clinician Eloisa RN, Gypsy Attending Clinician Unavailable Yenifer Malloy Attending Clinician Birdie SANDRA, Aruna Attending Clinician Unavailable Tatum RAMIREZ, Prabha Flores Attending Clinician [phone] PRABHA WINN Attending Clinician Unavailable Yolanda KHALIL, Mindy Cobb Attending Clinician [phone] Kurt ARCE, Jolynn Attending Clinician Unavailable Judit Lau Attending Clinician Meño KHALIL, Mariaa Vitale Attending Clinician Kimberli Sierra MD Attending Clinician KIMBERLI SIERRA Attending Clinician Unavailable Chika Rosa Attending Clinician Unavailable SUSANNA WICK Admitting Clinician Unavailable EDDI TAYLOR Admitting Clinician Unavailable JUDIT LAU Admitting Clinician Unavailable Payers Payer Name Policy Type Policy Number Effective Date Expiration Date S urbano [facility] [facility] [employer] [id number] 2023 PLAN 00:00:00 MED[place]ID [place] [id number] 2022 00:00:00 Problems Condition Condition Condition Status Onset Resolution Last Treating Co mments Source Name Details Category Date Date Treatment Clinician Date 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 Oral phase Oral phase Disease Recurre [facility] dysphagia dysphagia nce 5- [facility] 00:00: Medical 00 Center Oropharyng Oropharyng Disease Active C HI St [...] St ONE 6-20 [facility] 00:00: Medical 00 [place] No Known DA Active [facility] 05[facility]12 Allergie 00:00: s 00 NO KNOWN Allergy Active [facility] Family History Family Member Diagnosis Comments Start Date Stop Date Source Natural father Lung cancer [facility] Maternal aunt Cancer [facility] Maternal uncle Prostate cancer [facility] Maternal uncle Kidney failure [facility] Natural mother Stomach cancer [facility] Social History Social Habit Start Date Stop Date Quantity Comments Source History of tobacco Cigarette Smoker [facility] History [facility]-Med Medical Center Alcohol intake 2023-03-08 2023-03-08 Ex-drinker [facility] es 00:00:00 00:00:00 (finding) Medical Center Exposure to 2023-02-22 2023-03-[address] [facility] SARS-CoV-2 (event) 00:00:00 02:06:00 Medica l Center History [facility] 2023-03-04 2023-03-[address] [facility] Transport Med 00:00:00 00:00:[address] History [facility] 2023-03-04 2023-03-[address] [facility] Housing Unable to 00:00:00 00:00:00 Medical Center Pay History [facility] 2023-03-04 2023-03-[address] [facility] Housing Places 00:00:00 00:00:00 Medical Ce nter Lived History [facility] 2023-03-04 2023-03-[address] [facility] Housing [...] Center Sex Assigned At [birth year] F [facility] Crista kes 00:00:00 00:00:00 Medical Center Smoking Status Start Date Stop Date Source Smokes tobacco daily 2023-02-23 00:00:00 [facility] Medications Ordered Filled Start Stop [...] 2mg Take [address] [address] (DOLOPHINE) 03-10 associated (2 mg L ukes 5 mg/5 mL 00:00: pain total) by Med ical solution 00 mouth Center every 12 (twelve) hours. morphine 10 0 Yes 5mg Take 2.[address] mg/5 mL 7-01 mLs (5 mg [facility] solution 07:57: total) by [facility] 54 mouth Center every 4 (four) hours as needed for Pain. morphine 10 0 Yes 5mg Take 2.[address] mg/5 mL 7-01 mLs (5 mg [facility]ukes solution 07:57: total) by [facility] 54 mouth Center every 4 (four) hours as needed for Pain. morphine 10 2022-0 Yes 5mg Take 2.[address] mg/5 mL 7-01 mLs (5 mg [facility] solution 07:57: total) by [facility] 54 mouth Center every 4 (four) hours as needed for Pain. ondansetron Yes 8mg Take [address] [facility] [address] (ZOFRAN-ODT 6-30 tablet (8 Malcolm es ) 8 MG 17:01: mg total) Medica l disintegrat 29 by mouth 2 Ce nter ing tablet (two) times daily as needed for Nausea. ondansetron 3-0 Yes 8mg Take [address] [facility] (ZOFRAN-ODT 6-30 tablet (8 Malcolm es ) 8 MG 17:01: mg total) Medica l disintegrat 29 by mouth 2 Ce nter ing tablet (two) times daily as needed for Nausea. ondansetron 3-0 Yes 8mg Take [address] [facility] (ZOFRAN-ODT 6-30 tablet (8 Malcolm es ) 8 MG 17:01: mg total) Medica l disintegrat 29 by mouth 2 Ce nter ing tablet (two) times daily as needed for Nausea. ondansetron 2023-0 Yes 8mg Take [address] (ZOFRAN-ODT [...] (5 mg [facility] solution 13:57: total) by [facility] 48 mouth Center every 4 (four) hours as needed for Pain. miscellaneo Yes Oral [facility] 6-24 suction [facility] supply Misc 00:00: machine. Vt dical Center miscellaneo Yes Oral [facility] 6-24 suction [facility] supply Misc 00:00: machine. Me dical 00 Center miscellaneo Yes Oral [facility] 6-24 suction [facility] supply Misc 00:00: machine. Vt dical 00 Center miscellaneo Yes Oral [facility] 6-24 suction [facility] supply Misc 00:00: machine. Vt dical 00 Center miscellaneo Yes Oral [facility] 6-24 suction [facility] supply Misc 00:00: machine. Vt dical 00 [place] methadone Yes Cancer 2mg Take [address] (DOLOPHINE) 6-23 associated (2 mg L ukes 5 mg/5 mL 00:00: pain total) by Med ical solution 00 mouth Center every 12 (twelve) hours. lactulose 3-0 Yes 20g [id number] Take [address] (CHRONULAC) 6-23 [id number] mLs (20 g [facility]ukes 10 gram/15 00:00: [...] 12 (twelve) hours. lactulose 2022-0 Yes 20g [id number] Take [address] (CHRONULAC) 6-23 [id number] mLs (20 g [facility]ukes 10 gram/15 00:00: 3D total) by Vt dical mL solution 00 mouth 3 Cente [...] 12 (twelve) hours. lactulose 3-0 Yes 20g [id number] Take [address] (CHRONULAC) 6-23 [id number] mLs (20 g [facility]ukes 10 gram/15 00:00: [...] 12 (twelve) hours. lactulose 2023-0 Yes 20g [id number] Take [address] (CHRONULAC) 6-23 [id number] mLs (20 g [facility]ukes 10 gram/15 00:00: [...] 12 (twelve) hours. lactulose 3-0 Yes 20g Q.[id number] Take [address] (CHRONULAC) 6-23 [id number] mLs (20 g [facility]ukes 10 gram/15 00:00: 3D total) by Me dical mL solution 00 mouth 3 Cente r (three) times daily. viscous 2023-0 Yes 5mL Swish and [facility] lidocaine 6-23 spit 5 mLs Luke s 2% (VISCOUS 00:00: every 6 Med ical LIDOCAINE) 00 (six) Center 2 % Soln hours as mucosal needed. solution lactulose 2023-0 Yes 20g [id number] Take [address] (CHRONULAC) 6-23 [id number] mLs (20 g [facility] 10 gram/15 00:00: 3D total) by Me dical mL solution 00 mouth 3 Cente r (three) times daily. viscous 2023-0 Yes 5mL Swish and [facility] t lidocaine 6-23 spit 5 mLs Luke s 2% (VISCOUS 00:00: every 6 Med ical LIDOCAINE) 00 (six) Center 2 % Soln hours as mucosal needed. solution nicotine 2022- No 1{patch Q24H Place 1 [...] 2mg Take [address] (DOLOPHINE) 02-24- associated (2 mg [facility]ukes 5 mg/5 mL 00:00: 00:00 pain total) by Me dical solution 00 :00 mouth Center every 12 (twelve) hours. morphine 10 2022-0 Yes 5mg Take 2.[address] mg/5 mL 6-22 mLs (5 mg [facility]ukes solution 08:23: total) by Medi jasmina 13 mouth Center every 4 (four) hours as needed for Pain. Max Daily Amount: 30 mg ondansetron 2023-0 Yes 8mg Take [address] (ZOFRAN-ODT [...] (eight) hours as needed for Nausea. ondansetron 2023-0 Yes 8mg Take [address] (ZOFRAN) 4 6-22 mLs (8 mg Luke s mg/5 mL 00:00: total) by Medic al solution 00 mouth Center every 8 (eight) hours as needed for Nausea. ondansetron 2023-0 Yes 8mg Take [address] (ZOFRAN) 4 6-22 mLs (8 mg Luke s mg/5 mL 00:00: total) by Medic al solution 00 mouth Center every 8 (eight) hours as needed for Nausea. ondansetron 2023-0 Yes 8mg Take [address] (ZOFRAN) 4 6-22 mLs (8 mg Luke s mg/5 mL 00:00: total) by Medic al solution 00 mouth Center every 8 (eight) hours as needed for Nausea. ondansetron 2023-0 Yes 8mg Take [address] (ZOFRAN) 4 6-22 mLs (8 mg Luke s mg/5 mL 00:00: total) by Medic al solution 00 mouth Center every 8 (eight) hours as needed for Nausea. ondansetron 2023-0 Yes 8mg Take [address] (ZOFRAN) 4 6-22 mLs (8 mg Luke s mg/5 mL 00:00: total) by Medic al solution 00 mouth Center every 8 (eight) hours as needed for Nausea. gabapentin 2023-0 2023- No 300mg Take [address] (NEURONTIN) 6-22 07-22 (300 mg Luke s 300 mg/6 mL 00:00: 23:59 total) by Medical (6 mL) Soln 00 :00 mouth 3 Cente r solution (three) times daily as needed (sharp pain) for up to 30 days. sennosides 2022-0 3- No 10mL QD Take [...] 03-22 mLs by [facility]ukes 8.8 mg/5 mL 00:: 23:59 mouth Medi jasmina syrup 00 :00 [...] for up to 30 days. sennosides 2022-0 3- No 10mL QD Take [...] for up to 30 days. sennosides 2022-0 3- No 10mL QD Take [...] :00 nightly Center for 30 days. sennosides 2022-0 3- No 10mL QD Take [...] Take [address] (ZOFRAN) 4 02-23- mLs (8 mg Malcolm es mg/5 mL 00:00: 00:00 total) by Medi jasmina solution 00 :00 mouth Center every 8 (eight) hours as needed for Nausea. HYDROcodone 2022- No Take by I St -acetaminop 5-19 -19 mouth [facility] hen ([place] 09:54: 00:00 every 6 Med ical 7.5-325) 24 :00 (six) Center 7.5-325 mg hours as per tablet needed for Pain (kimberlyn pain) Liquid form. HYDROcodone 2022- No Take by I St -acetaminop 5-19 -19 mouth [facility] hen ([place] 09:54: 00:00 every 6 Med ical 7.5-325) 24 :00 (six) Center 7.5-325 mg hours as per tablet needed for Pain (kimberlyn pain) Liquid form. HYDROcodone 2022- No Take by I St -acetaminop 5-19 -19 mouth [facility] hen ([place] 09:54: 00:00 every [...] St -acetaminop 5-19 05-19 mouth [facility] hen ([place] 09:54: 00:00 every 6 Med ical 7.5-325) 24 :00 (six) Center 7.5-325 mg hours as per tablet needed for Pain (kimberlyn pain) Liquid form. HYDROcodone 2022- No Take by [facility] -acetaminop 5-19 05-19 mouth [facility] hen ([place] 09:54: 00:00 every 6 Med ical 7.5-325) 24 :00 (six) Center 7.5-325 mg hours as per tablet needed for Pain (kimberlyn pain) Liquid form. HYDROcodone 2022- No Take by I St -acetaminop 5-19 05-19 mouth [facility] hen ([place] 09:54: 00:00 every 6 Med ical 7.5-325) 24 :00 (six) Center 7.5-325 mg hours as per tablet needed for Pain (kimberlyn pain) Liquid form. HYDROcodone 2022- No Take by I St -acetaminop 5-19 05-19 mouth [facility] hen ([place] 09:54: 00:00 every 6 Med ical 7.5-325) 24 :00 (six) Center 7.5-325 mg hours as per tablet needed for Pain (kimberlyn pain) Liquid form. HYDROcodone 2022- No Take by I St -acetaminop 5-19 05-19 mouth [facility] hen ([place] 09:54: 00:00 every 6 Med ical 7.5-325) 24 :00 (six) Center 7.5-325 mg hours as per tablet needed for Pain (kimberlyn pain) Liquid form. HYDROcodone 2022- No Take by I St -acetaminop 5-19 05-19 mouth [facility] hen ([place] 09:54: 00:00 every 6 Med ical 7.5-325) [...] [address] sulfate 300 5-18 (300 mg Luke s mg (60 mg 00:00: 23:59 total) by Me dical iron)/5 mL 00 :00 mouth in Cente r syrup the morning. ferrous 2022-2023- No 300mg QD Take [address] sulfate 300 -20 01-18 (300 mg Luke s mg (60 mg 00:00: 23:59 total) by Me dical iron)/5 mL 00 :00 mouth in Cente r syrup the morning. ferrous 2022-2023- No 300mg QD Take [address] sulfate 300 5-20 01-18 (300 mg Luke s mg (60 mg 00:00: 23:59 total) by Me dical iron)/5 mL 00 :00 mouth in Cente r syrup the morning. ferrous 2023- No 300mg QD Take [address] sulfate 300 01-20-18 (300 mg Luke s mg (60 mg 00:00: 23:59 total) by Me dical iron)/5 mL 00 :00 mouth in Cente r syrup the morning. ferrous 2022-2023- No 300mg QD Take [address] sulfate 300 01-20-18 (300 mg Luke s mg (60 mg 00:00: 23:59 total) by Me dical iron)/5 mL 00 :00 mouth in Cente r syrup the morning. ferrous 2023- No 300mg QD Take [address] sulfate 300 01-20-18 (300 mg Luke s mg (60 mg [...] 8mg Take [address] (ZOFRAN-ODT 5-19 -18 tablet (8 Crista kes ) 8 [...] days. Max Daily Amount: 60 mg morphine 3-0 3- No 10mg Take 0.[address] [facility] 100 mg/5 mL 5-19 05-19 mLs (10 mg L ukes (20 mg/mL) 00:00: 00:00 total) by M edical concentrate 00 :00 mouth Center d solution every 4 (four) hours as needed for Pain for up to 30 days. Max Daily Amount: 60 mg morphine 3-0 3- No 10mg Take 0.[address] [facility] 100 mg/5 mL 5-19 05-19 mLs (10 mg L ukes (20 mg/mL) 00:00: 00:00 total) by M edical concentrate 00 :00 mouth Center d solution every 4 (four) hours as needed for Pain for up to 30 days. Max Daily Amount: 60 mg HYDROcodone 0 Yes Take by [facility] -acetaminop 5-17 mouth [facility] hen ([place] 04:39: every 6 Medi jasimna 7.5-325) 44 (six) Center 7.5-325 mg hours as per tablet needed for Pain (kimberlyn pain) Liquid form. Vital Signs Vital Name Observation Time Observation Value Comments Source HEIGHT 2023-06-21 14:56:00 165.1 cm WEIGHT 2023-06-21 14:56:00 50.5 kg HEIGHT 2023-06-21 14:56:00 165.1 cm WEIGHT 2023-06-21 14:56:00 50.5 kg WEIGHT 2023-03-17 00:06:00 58.151 kg WEIGHT [...] kg Heart rate 2023-03-13 11:21:03 77 /min [facility] Body temperature 2023-03-13 11:21:03 36.78 Margi [facility] Respiratory rate 2023-03-13 11:21:03 17 /min [facility] Oxygen saturation in 2023-03-13 11:21:03 98 /min [facility] Arterial blood by Medical Ce nter Pulse oximetry Systolic blood 2023-03-13 11:20:30 97 mm[Hg] [facility] Diastolic blood 2023-03-13 11:20:30 68 mm[Hg] [facility] Heart rate 2023-03-10 07:45:31 75 /min [facility] Respiratory rate 2023-03-10 07:45:31 16 /min [facility] Oxygen saturation in 2023-03-10 07:45:31 100 /min [facility] Arterial blood by Medical Ce nter Pulse oximetry Body temperature 2023-03-10 07:44:56 36.94 Margi [facility] Systolic blood 2023-03-10 07:44:15 119 mm[Hg] [facility] Diastolic blood 2023-03-10 07:44:15 86 mm[Hg] [facility] Heart rate 2023-03-09 11:34:32 74 /min [facility] Respiratory rate 2023-03-09 11:34:32 18 /min [facility] Oxygen saturation in 2023-03-09 11:34:32 99 /min [facility] Arterial blood by Medical Ce nter Pulse oximetry Body temperature 2023-03-09 11:34:02 36.61 Margi [facility] Systolic blood 2023-03-09 11:33:45 124 mm[Hg] [facility] Diastolic blood 2023-03-09 11:33:45 90 mm[Hg] [facility] Systolic blood 2023-03-08 10:30:00 136 mm[Hg] [facility] Diastolic blood 2023-03-08 10:30:00 100 mm[Hg] [facility] Heart rate 2023-03-08 10:30:00 64 /min [facility] Respiratory rate 2023-03-08 10:30:00 11 /min [facility] Oxygen saturation in 2023-03-08 10:30:00 99 /min [facility] Arterial blood by Medical Ce nter Pulse oximetry Body temperature 2023-03-08 09:54:00 36 Margi [facility] Body height 2023-03-03 12:40:00 152.4 cm [facility] Body weight 2023-03-03 12:40:00 54.885 kg [facility] BMI 2023-03-03 12:40:00 23.63 kg/m2 [facility] Body height 2023-02-28 14:00:00 154.9 cm [facility] Body weight 2023-02-28 14:00:00 56.246 kg [facility] BMI 2023-02-28 14:00:00 23.43 kg/m2 [facility] Systolic blood 2023-02-24 08:13:00 120 mm[Hg] [facility] Diastolic blood 2023-02-24 08:13:00 97 mm[Hg] [facility] Heart rate 2023-02-24 08:13:00 88 /min [facility] Body height 2023-02-24 08:13:00 154.9 cm [facility] Body weight 2023-02-24 08:13:00 56.337 kg [facility] BMI 2023-02-24 08:13:00 23.47 kg/m2 [facility] Oxygen saturation in 2023-02-24 08:13:00 100 /min [facility] Arterial blood by Medical Ce nter Pulse oximetry Body temperature 2023-02-23 08:02:00 37 Margi [facility] Systolic blood 2023-01-20 07:55:00 136 mm[Hg] [facility] Diastolic blood 2023-01-20 07:55:00 82 mm[Hg] [facility] Heart rate 2023-01-20 07:55:00 71 /min [facility] Body temperature 2023-01-20 07:55:00 36.44 Margi [facility] Respiratory rate 2023-01-20 07:55:00 18 /min [facility] Oxygen saturation in 2023-01-20 07:55:00 100 /min [facility] Arterial blood by Medical Ce nter Pulse oximetry Systolic blood 2023-01-19 12:52:00 128 mm[Hg] [facility] Diastolic blood 2023-01-19 12:52:00 85 mm[Hg] [facility] Heart rate 2023-01-19 12:52:00 66 /min [facility] Body temperature 2023-01-19 12:52:00 36.72 Margi [facility] Respiratory rate 2023-01-19 12:52:00 18 /min [facility] Oxygen saturation in 2023-01-19 12:52:00 100 /min [facility] Arterial blood by Medical Ce nter Pulse oximetry Body height 2023-01-18 04:00:00 154.9 cm [facility] Body weight 2023-01-18 04:00:00 57.561 kg [facility] BMI 2023-01-18 04:00:00 23.98 kg/m2 [facility] Procedures Procedure Date / Time Performing Clinician Source Performed GLOSSECTOMY, TOTAL 2023-03-14 07:30[facility] 2023-03-14 07:30[facility]ED[facility], 2023-03-14 07:30:00 Vinh Alcocer [facility] ROTATIONAL [facility] FREE FLAP PROCEDURE, 2023-03-14 07:30:00 Vinh Alcocer [facility], WITH Medical Ce nter MICROVASCULAR ANASTOMOSIS FLAP PROCEDURE, MUSCLE, 2023-03-14 07:30:00 Vinh Alcocer [facility] CREATION, FLAP, ROTATION 2023-03-14 07:30:00 Vinh Alcocer [facility] POCT-GLUCOSE METER 2023-03-13 11:44:00 Susanna Wick [facility] POCT-GLUCOSE METER 2023-03-13 06:05:00 Susanna Wick [facility] BASIC METABOLIC PANEL 2023-03-13 03:53:00 Cayden [facility] MAGNESIUM 2023-03-13 03:53:00 Zak Rodarte [facility] PHOSPHORUS 2023-03-13 03:53:00 Zak Rodarte [facility] POCT-GLUCOSE METER 2023-03-13 00:08:00 Susanna Wick [facility] POCT-GLUCOSE METER 2023-03-12 15:54:00 Susanna Wick [facility] POCT-GLUCOSE METER 2023-03-12 12:22:00 Delano [facility] POCT-GLUCOSE METER 2023-03-12 06:14:00 Susanna Wick [facility] BASIC METABOLIC PANEL 2023-03-12 03:31:00 [facility]-03-12 03:31:00 Cayden [facility] PHOSPHORUS 2023-03-12 03:31:00 Cayden [facility] POCT-GLUCOSE METER 2023-03-11 23:54:00 Susanna Wick [facility] POCT-GLUCOSE METER 2023-03-11 16:29:00 Susanna Wick [facility] POCT-GLUCOSE METER 2023-03-11 12:28:00 Delano [facility] POCT-GLUCOSE METER 2023-03-11 06:03:00 Delano [facility] BASIC METABOLIC PANEL 2023-03-11 04:02:00 Cayden [facility] MAGNESIUM 2023-03-11 04:02:00 Cayden [facility] PHOSPHORUS 2023-03-11 [facility] 2023-03-10 06:07:00 Cayden [facility] MAGNESIUM 2023-03-10 06:07:00 Cayden [facility] PHOSPHORUS 2023-03-10 06:07:00 Cayden [facility] POCT-GLUCOSE METER 2023-03-10 05:58:00 Delano [facility] POCT-GLUCOSE METER 2023-03-09 23:19:00 Delano [facility] POCT-GLUCOSE METER 2023-03-09 17:49:00 Delano [facility] POCT-GLUCOSE METER 2023-03-09 11:35:00 Delano [facility] POCT-GLUCOSE METER 2023-03-09 06:08:00 Delano [facility] CBC W/PLT COUNT & AUTO 2023-03-09 04:54:00 Cayden [facility] BASIC METABOLIC PANEL 2023-03-09 04:54:00 Cayden [facility] MAGNESIUM 2023-03-09 04:54:00 Cayden [facility] PHOSPHORUS 2023-03-09 04:54:00 Cayden [facility] ABORH, MANUAL 2023-03-09 04:54:00 Cayden [facility] CBC W/PLT COUNT & AUTO 2023-03-09 04:54:00 [facility]den [facility] POCT-GLUCOSE METER 2023-03-08 23:36:00 Delano [facility] POCT-GLUCOSE METER 2023-03-08 17:43:00 Delano [facility] POCT-GLUCOSE METER 2023-03-08 11:29:00 Delano [facility] INSERTION, GASTROSTOMY 2023-03-08 07:55:00 Jose Snyder [facility] TUBE, LAPAROSCOPIC Medical Cente r POCT , URINE 2023-03-08 07:31:00 Sofie Blackwood [facility] TYPE AND SCREEN, 2023-03-08 07:28:00 Jose Snyder [facility] AUTOMATED [facility] POCT-GLUCOSE METER 2023-03-08 05:51:00 Susanna Wick [facility] CBC W/PLT COUNT & AUTO 2023-03-08 03:29:00 [facility] BASIC METABOLIC PANEL 2023-03-08 03:29:00 Cayden [facility] MAGNESIUM 2023-03-08 03:29:00 Cayden [facility] PHOSPHORUS 2023-03-08 03:29:[facility] W/PLT COUNT & AUTO 2023-03-08 03:29:00 Lito [facility] DIFFERENTIAL [facility] POCT-GLUCOSE METER 2023-03-07 23:30:00 Delano Susanna Roman [facility] POCT-GLUCOSE METER 2023-03-07 17:42:00 Susanna Wick [facility] POCT-GLUCOSE METER 2023-03-07 12:05:00 Delano Susanna [facility] POCT-GLUCOSE METER 2023-03-07 06:28:00 Delano Susanna [facility] CBC W/PLT COUNT & AUTO 2023-03-07 04:54:00 LarrymaryFormerly [facility] BASIC METABOLIC PANEL 2023-03-07 04:54:00 Cayden [facility] MAGNESIUM 2023-03-07 04:54:00 [facility] 2023-03-07 04:54:00 [facility] CBC W/PLT COUNT & AUTO 2023-03-07 04:54:[address] [facility] DIFFERENTIAL [facility] POCT-GLUCOSE METER 2023-03-06 23:58:00 Delano Susanna [facility] POCT-GLUCOSE METER 2023-03-06 17:09:00 Delano [facility] SCREEN, URINE 2023-03-06 14:44:00 Jose Snyder [facility] POCT-GLUCOSE METER 2023-03-05 16:54:00 Delano Susanna [facility] POCT-GLUCOSE METER 2023-03-05 12:26:00 Delano [facility] CBC W/PLT COUNT & AUTO 2023-03-05 05:07:00 Chadd Clemente [facility] DIFFERENTIAL [facility] COMPREHENSIVE METABOLIC 2023-03-05 05:07:00 Chadd Clemente [facility] PANEL [facility] PREALBUMIN 2023-03-05 05:07:[address] [facility] APTT 2023-03-05 05:07:[address] [facility] PROTHROMBIN TIME/INR 2023-03-05 05:07:[address] [facility] CBC W/PLT COUNT & AUTO 2023-03-05 05:07:00 ShilacurlyChadd [facility] DIFFERENTIAL [facility] HC LAB HIV-1 AG W/HIV-1&2 2023-03-04 12:31:00 Fall, [facility] HEPATITIS C ANTIBODY 2023-03-04 12:31:00 Fall, [facility] [place] PREALBUMIN 2023-03-04 12:31:00 Fall, [facility] XR ABDOMEN/KUB 1 VIEW 2023-03-03 18:48:00 Rick Ball [facility] LARYNGOSCOPY, WITH BIOPSY 2023-03-03 16:15:00 Susanna Wick [facility] LARYNGOSCOPY, WITH BIOPSY 2023-03-03 14:48:00 Susanna Wick [facility] POCT , URINE 2023-03-03 13:08:00 Maryann Mclean [facility] CT CHEST WITH IV CONTRAST 2023-02-23 12:27:[address] [facility] CT NECK SOFT TISSUE WITH 2023-02-23 12:27:31 Prabha Winn [facility] IV CONTRAST [facility] XT NORMAL BLOOD (TEMPUS) 2023-02-23 10:54:00 Carlos Grajeda [facility] BASIC METABOLIC PANEL 2023-01-20 04:17:00 Mariaa Wilder [facility] MAGNESIUM 2023-01-20 04:17:00 Mariaa Wilder [facility] PHOSPHORUS 2023-01-20 04:17:00 Mariaa Wilder [facility] BASIC METABOLIC PANEL 2023-01-19 05:08:00 Mariaa Wildersevero Hurd [facility] MAGNESIUM 2023-01-19 05:08:00 Mariaa Wilder [facility] PHOSPHORUS 2023-01-19 05:08:00 Meño [facility] VITAMIN B12 2023-01-19 05:08[facility], % SAT. 2023-01-19 05:08:00 Mariaa Wilder [facility] (WITHOUT FERRITIN) [facility] CT CHEST WITH IV CONTRAST 2023-01-18 14:51:00 Cesia Lau [facility] CBC W/PLT COUNT & AUTO 2023-01-18 05:18:00 Judit Lau [facility] COMPREHENSIVE METABOLIC 2023-01-18 05:18:00 Judit Lau [facility] MAGNESIUM 2023-01-18 05:18:00 Germainkaleida healthJudit dow [facility] PHOSPHORUS 2023-01-18 05:18[facility] CBC W/PLT COUNT & AUTO 2023-01-18 05:18:00 Judit Lau [facility] Plan of Care Planned Activity Planned Date [...] [facility] Center cervix (procedure) [code = 979448761] Future Scheduled 2019-04-[address] [facility] 00:[facility] malignant [facility] cervix (procedure) [code = 799608296] Future Scheduled 2019-04-[address] [facility] 00:00:00 [facility] cervix (procedure) [code = 633376190] Future Scheduled 2019-04-[address] [facility] Test 00:00:00 [facility] cervix (procedure) [code = 880840153] Future Scheduled 2019-04-[address] [facility] Test 00:00:00 [facility] cervix (procedure) [code = 006224476] Future Scheduled 2019-04-[address] [facility] Test 00:00:00 [facility] cervix (procedure) [code = 798153652] Future Scheduled [address] [facility] 00:00:00 malignant [facility] cervix (procedure) [code = 752012440] Future Scheduled [address] [facility] 00:00:00 malignant [facility] cervix (procedure) [code = 199760008] Future Scheduled [address] [facility] 00:00:00 malignant [facility] cervix (procedure) [code = 000836893] Future Scheduled [address] [facility] Test 00:00:00 malignant [facility] cervix (procedure) [code = 529962221] Future Scheduled [address] [facility] Test 00:00:00 malignant [facility] cervix (procedure) [code = 486125430] Future Scheduled [address] [facility] Test 00:00:00 malignant [facility] cervix (procedure) [code = 791128855] Future Scheduled [address] [facility] Test 00:00:00 malignant [facility] cervix (procedure) [code = 072676286] Future Scheduled [address] [facility] Test 00:00:00 malignant ne[facility] cervix (procedure) [code = 645063664] Future Scheduled [address] [facility] Test 00:00:00 (procedure) [code = [facility] Center 51374694] Future Scheduled [address] [facility] Test 00:00:00 (procedure) [code = [facility] 24331405] Future Scheduled [address] [facility] Test 00:00:00 (procedure) [code = [facility] 74693339] Future Scheduled [address] [facility] Test 00:00:00 (procedure) [code = Medical Center 92493559] Future Scheduled [address] [facility] Test 00:00:00 (procedure) [code = Medical Center 23496392] Future Scheduled [address] [facility] Test 00:00:00 (procedure) [code = Medical Center 76691276] Future Scheduled [address] [facility] Test 00:00:00 (procedure) [code = Medical Center 98248721] Future Scheduled [address] [facility] Test 00:00:00 (procedure) [code = Medical Center 90287742] Future Scheduled [address] [facility] Test 00:00:00 (procedure) [code = Medical Center 14084564] Future Scheduled [address] [facility] Test 00:00:00 (procedure) [code = Medical Center 64092517] Future Scheduled [address] [facility] Test 00:00:00 (procedure) [code = Medical Center 68573609] Future Scheduled [address] [facility] Test 00:00:00 (procedure) [code = Medical Center 57701243] Future Scheduled 2001 DTAP/TDAP/TD VACCINES CH I [...] Type Clinicians Facility Department ID 2023-03-09 Outpatient [facility] Surgery [id number] [facility] 08:48:52 2023-03-03 Inpatient JUANITA WICK, [facility] [id number] [facility] 18:30:29 SUSANNA 2023-08-03 2023-08-03 Outpatient [facility] [id number] SLE 00:00:00 00:00:00 2023-08-03 2023-08-03 Outpatient [facility] [id number] SLE 00:00:00 00:00:00 2023-08-02 2023-08-02 Outpatient [facility] [id number] SLE 00:00:00 00:00:00 2023-08-01 2023-08-01 Outpatient [facility] [id number] SLE 00:00:00 00:00:00 2023-08-01 2023-08-01 Outpatient [facility] [id number] SLE 00:00:00 00:00:00 2023-08-01 2023-08-01 Outpatient EL [facility] [id number] [facility]H 00:00:00 00:00:00 2023-08-01 2023-08-01 Outpatient EL [facility]H [facility] [id number] [facility] 00:00:00 00:00:00 2023-07-31 2023-07-31 Outpatient EL SLEH SLEH [id number] [facility]H 00:00:00 00:00:00 2023-07-31 2023-07-31 Outpatient EL SLEH SLEH [id number] [facility]H 00:00:00 00:00:00 2023-07-29 2023-07-29 Outpatient EL SLEH SLEH [id number] SLEH 00:00:00 00:00:00 2023-07-28 2023-07-28 Outpatient EL SLEH SLEH [id number] [facility]H 00:00:00 00:00:00 2023-07-28 2023-07-28 Outpatient EL SLEH SLEH [id number] [facility]H 00:00:00 00:00:00 2023-07-28 2023-07-28 Outpatient EL SLEH SLEH [id number] [facility]H 00:00:00 00:00:00 2023-07-28 2023-07-28 Outpatient EL SLEH SLEH [id number] [facility]H 00:00:00 00:00:00 2023-07-26 2023-07-26 Outpatient EL SLEH SLEH [id number] [facility]H 00:00:00 00:00:00 2023-07-25 2023-07-25 Outpatient EL SLEH SLEH [id number] SLEH 00:00:00 00:00:00 2023-07-24 2023-07-24 Outpatient EL SLEH SLEH [id number] SLEH 00:00:00 00:00:00 2023-07-21 2023-07-21 Outpatient EL SLEH SLEH [id number] SLEH 00:00:00 00:00:00 2023-07-20 2023-07-20 Outpatient EL SLEH SLEH [id number] SLEH 00:00:00 00:00:00 2023-07-19 2023-07-19 Outpatient EL SLEH SLEH [id number] SLEH 00:00:00 00:00:00 2023-07-18 2023-07-18 Outpatient EL SLEH SLEH [id number] SLEH 00:00:00 00:00:00 2023-07-17 2023-07-17 Outpatient EL SLEH SLEH [id number] SLEH 00:00:00 00:00:00 2023-07-14 2023-07-14 Outpatient EL SLEH SLEH [id number] SLEH 00:00:00 00:00:00 2023-07-13 2023-07-13 Outpatient EL SLEH SLEH [id number] SLEH 00:00:00 00:00:00 2023-07-12 2023-07-12 Outpatient EL SLEH SLEH [id number] SLEH 00:00:00 00:00:00 2023-07-11 2023-07-11 Outpatient EL SLEH SLEH [id number] SLEH 00:00:00 00:00:00 2023-07-10 2023-07-10 Outpatient EL SLEH SLEH [id number] SLEH 00:00:00 00:00:00 2023-07-09 2023-07-09 Outpatient EL SLEH SLEH [id number] SLEH 00:00:00 00:00:00 2023-07-07 2023-07-07 Outpatient EL SLEH SLEH [id number] SLEH 00:00:00 00:00:00 2023-07-06 2023-07-06 Outpatient EL SLEH SLEH [id number] SLEH 00:00:00 00:00:00 2023-07-05 2023-07-05 Outpatient EL SLEH SLEH [id number] SLEH 00:00:00 00:00:00 2023-07-04 2023-07-04 Outpatient EL SLEH SLEH [id number] SLEH 00:00:00 00:00:00 2023-07-03 2023-07-03 Outpatient EL SLEH SLEH [id number] SLEH 00:00:00 00:00:00 2023-06-30 2023-06-30 Outpatient EL SLEH SLEH [id number] SLEH 00:00:00 00:00:00 2023-06-29 2023-06-29 Outpatient EL SLEH SLEH [id number] SLEH 00:00:00 00:00:00 2023-06-28 2023-06-28 Outpatient EL SLEH SLEH [id number] SLEH 00:00:00 00:00:00 2023-06-27 2023-06-27 Outpatient EL ALEX, SLEH SLEH [id number] SLEH 00:00:00 00:00:00 ABDOULAYE 2023-06-27 2023-06-27 Outpatient EL SLEH SLEH [id number] SLEH 00:00:00 00:00:00 2023-06-26 2023-06-26 Outpatient EL SLEH SLEH [id number] SLEH 00:00:00 00:00:00 2023-06-25 2023-06-25 Outpatient EL SLEH SLEH [id number] SLEH 00:00:00 00:00:00 2023-06-23 2023-06-23 Outpatient EL AFAQ, SLEH SLEH [id number] [facility]H 00:00[facility]00 23:59:[facility] 2023-06-23 Outpatient EL SLEH SLEH [id number] SLEH 15:03:10 15:15:11 2023-06-21 2023-06-23 Outpatient ER TAYLOR, SLEH Emergency [id number] SLEH 14:54:00 14:44:00 EDDI 2023-06-23 2023-06-23 Outpatient EL AFAQ, SLEH SLEH [id number] SLEH 07:55:43 07:55:43 MUHAMMED 2023-06-23 2023-06-23 Outpatient EL SLEH SLEH [id number] SLEH 00:00:00 00:00:00 2023-06-22 2023-06-22 Outpatient EL SLEH SLEH [id number] SLEH 00:00:00 00:00:00 2023-06-21 2023-06-21 Emergency EL ALAO, SLEH SLEH [id number] SLEH 15:29:23 15:29:23 TITILOLA 2023-06-21 2023-06-21 Emergency EL ALAO, SLEH SLEH [id number] SLEH 15:29:15 15:29:15 TITILOLA 2023-06-21 2023-06-21 Outpatient EL SLEH SLEH [id number] SLEH 13:15:47 13:51:48 2023-06-21 2023-06-21 Outpatient EL SLEH SLEH [id number] SLEH 00:00:00 00:00:00 2023-06-20 2023-06-20 Outpatient EL SLEH SLEH [id number] SLEH 13:30:59 14:16:35 2023-06-19 2023-06-19 Outpatient EL SLEH SLEH [id number] SLEH 00:00:00 00:00:00 2023-06-15 2023-06-15 Outpatient EL SLEH SLEH [id number] SLEH 12:57:03 13:20:31 2023-06-14 2023-06-14 Outpatient EL SLEH SLEH [id number] SLEH 15:14:14 15:42:05 2023-06-14 2023-06-14 Outpatient EL NICCI SLE SLEH [id number] SLEH 00:00:00 00:00:00 CARLOS 2023-06-05 2023-06-05 Outpatient EL SLE SLE [id number] SLEH 00:00:00 00:00:00 2023-05-05 2023-05-05 Outpatient EL SLE SLE [id number] SLEH 06:48:56 06:48:56 2023-04-12 2023-04-12 Outpatient EL MELLISSA, SLE SLEH [id number] SLEH 00:00:00 00:00:00 YENIFER 2023-04-12 2023-04-12 Outpatient EL NICCI SLE SLE [id number] SLEH 00:00:00 00:00:00 CARLOS 2023-04-04 2023-04-04 Outpatient EL SLE SLE [id number] SLEH 06:46:17 06:46:17 2023-03-03 2023-03-22 Inpatient EL DELANO, SLE Surgery [id number] SLEH 12:21:00 18:52:00 SUSANNA 2023-03-13 2023-03-13 Outpatient EL NICCI SLE SLE [id number] SLEH 00:00:00 00:00:00 CARLOS 2023-03-10 2023-03-10 [facility] Nicci, [facility] [id number] [facility] 12:00:00 12:00:[address] [facility] 2023-03-10 2023-03-10 Outpatient JUANITA GRAJEDA [facility] [id number] SLEH 00:00:00 00:00:00 CARLOS 2023-03-10 2023-03-10 Outpatient JUANITA MALLOY [facility] [id number] SLE 00:00:00 00:00:00 YENIFER 2023-03-08 2023-03-08 Surgery Lillian, [facility] [id number] 08:00:00 10:03:00 [facility] 2023-03-08 2023-03-08 Anesthesia Ritchie Demetrius [facility] [id number] 07:56:00 09:55:00 [facility]-05 2023-03-05 Anesthesia Alvin Alcala [facility] [id number] 19:31:18 19:31:18 Event [facility] 2023-03-04 2023-03-04 Travel [facility] [id number] [facility] 00:00:00 00:00:00 [facility] 2023-03-03 2023-03-03 Anesthesia Caridad [facility] [id number] 16:11:00 17:19:00 [facility] 2023-03-03 2023-03-03 Surgery Delano [facility] [id number] 13:48:00 15:23:00 [facility] 2023-03-01 2023-03-01 Procedure Alex Abdoualye Palmah [facility] [id number] 14:00:00 15:00:[address] [facility] 2023-03-01 2023-03-01 Travel [facility] [id number] [facility] 00:00:00 00:00:00 [facility] 2023-02-28 2023-02-28 Outpatient LEXA CONTRERAS SLE [id number] SLEH 11:39:48 11:39:48 ABDOULAYE 2023-02-28 2023-02-28 Outpatient JUANITA SLE SLE [id number] SLEH 00:00:00 00:00:00 2023-02-28 2023-02-28 Telephone Eloisa [facility] [id number] 00:00:00 00:00:00 [facility] 2023-02-28 2023-02-28 Travel [facility] [id number] [facility] 00:00:00 00:00:00 [facility] 2023-02-24 2023-02-24 Office Mellissa, [facility] [id number] 08:00:00 10:46:55 Visit [facility] 2023-02-24 2023-02-24 Outpatient YOLANDE MONET [facility] [id number] SLE 07:59:33 10:46:55 [place] 2023-02-24 2023-02-24 Outside Nicci [facility] [id number] 00:00:00 00:00:[address] [facility] 2023-02-24 2023-02-24 Telephone Birdie [facility] [id number] 00:00:00 00:00:00 [facility] 2023-02-23 2023-02-23 [facility] [id number] 11:38:18 23:59:00 [facility] 2023-02-23 Outpatient LEXA DECKER SLE [id number] SLEH 11:38:18 23:59:00 PRABHA 2023-02-23 2023-02-23 [facility] [id number] 11:37:51 11:37:51 Encounter Prabha [facility] 2023-02-23 2023-02-23 Outpatient EL TATUM, SLE SLE [id number] SLEH 11:37:51 11:37:51 PRABHA 2023-02-23 2023-02-23 Office Nicci, [facility] [id number] 08:00:00 11:23:03 [facility] 2023-02-23 2023-02-23 Outpatient EL NICCI [facility] [id number] SLEH 07:59:25 11:23:03 CARLOS 2023-02-23 2023-02-23 Treatment Grajeda, [facility] [id number] 10:35:00 10:50:00 [facility] 2023-02-23 2023-02-23 Outpatient EL SLE SLE [id number] SLEH 10:44:57 10:44:57 2023-02-23 2023-02-23 [facility] [id number] [facility]H 00:00:00 00:00:00 2023-02-23 2023-02-23 Orders Yolanda, [facility] [id number] 00:00:00 00:00:00 Only [facility] 2023-02-23 2023-02-23 Documentat Kurt, [facility] [id number] 00:00:00 00:00:00 ion [facility] 2023-02-21 2023-02-21 Orders Tatum, [facility] [id number] 00:00:00 00:00:00 [facility] 2023-02-15 2023-02-15 Telephone Nicci, [facility] [id number] 00:00:00 00:00:00 [facility] 2023-01-18 2023-01-20 [facility] Judit Lau [facility] [id number] 03:16:00 12:00:00 Encounter Dandre Wilderrohit Vit[facility] Mariela, [facility] 2023-01-18 2023-01-20 Inpatient ER MARIELA [facility] Oncology [id number] [facility] 03:16:00 12:00:00 KIMBERLI 2023-01-18 2023-01-18 Outpatient JUANITA GRAJEDA [facility] [id number] [facility] 00:00:00 00:00:00 CARLOS 2023-01-18 2023-01-18 Travel [facility] [id number] [facility] 00:00:00 00:00:00 [facility] 2022-05-12 2022-05-12 Emergency Emergency Rassoli, [facility] [id number] [facility] 21:57:00 21:57:00 Amir 44 2022-05-12 2022-05-12 Emergency [facility] [id number] [facility] 21:57:00 21:57:00 44 Results Test Description Test Time Test Comments Results Result [facility] e Comments IR GASTROSTOMY 2023-06-27 TUBE REPLACEMENT 09:02:37 [facility] : 1980 Sex: F Fluorosc opic guided gastrostomy tube replacement, 06/23/2023.Clinical History: Leaking gastrostomy tube.Modality: Fluoroscopy. Grocery Cashier: Jeniffer.Internal Revenue Agent: Yohannes Flowers, fellow . Sedation: None.Estimated Blood Loss: NoneSpecimen: None.Fluoro Time: 0.6 min. Dose (Ka,r): 6 mGy.Technique: Discussion of risks, benefits, and alternatives were madewith the patient. The patient expressed understanding and agreed toproceed. After informed consent was obtained, which included the risksof bleeding, infection, injury to adjacent structures/bowel, adversemedication reaction, the patient's abdomen was prepped and draped in theusual sterile manner. All elements maximal sterile barrier technique wasutilized for this procedure, including utilization of sterile scrubsolution for skin prep, a large sterile sheet to cover the areas of thepatient that were not prepped, and hand hygiene, mask, head covering,and sterile gown for performing radiologist and scrub technologist. Local anesthesia was achieved with 2% lidocaine. A wire was advancedthrough the existing tube and curled within stomach. The old catheterwas removed and a new 20 Kuwaiti gastrostomy tube was advanced over thewire into the stomach. The retention balloon was inflated and the wirewas removed. Contrast was injected demonstrating opacification of thestomach. The patient tolerated the procedure well, without immediatecomplications. The patient's vital signs remained stable throughout theprocedure.Patient disposition: The patient was discharged from the department instable condition. IMPRESSION:Impression:S uccessful and uncomplicated fluoroscopic guided gastrostomy tubereplacement. Electronically Signed By: Diaz Zepeda 09:04 CDTWorkstation Name: [id number] SPUTUM CULTURE + GRAM STAIN 2023-06-25 09:35:03 Test Item Value Reference Range Interpretation Comme nts CULTURE (BEAKER) (test PSEUDOMONAS AERUGINOSA A 2+ Pseudomonas code = 1095) aeruginosa Amikacin (test code = 1) See_Comment S [A utomated message] The system which ge nerated this result tra nsmitted reference range : Susceptible 0-1 6 , Resistant <0 or >16 . The reference r omero was not used to int erpret this result as normal/abnormal . Aztreonam (test code = See_Comment S [Aut omated message] The 32) system which ge nerated this result tra nsmitted reference range : Susceptible 0-8 , Resistant <0 or >8 . The reference range was not used to interpr et this result as normal/abnormal . Cefepime (test code = 51) See_Comment S [ Automated message] The system which ge nerated this result tra nsmitted reference range : Susceptible 0-8 , Resistant <0 or >8 . The reference range was not used to interpr et this result as normal/abnormal . Ceftazidime (test code = See_Comment S [A utomated message] The 27) system which ge nerated this result tra nsmitted reference range : Susceptible 0-8 , Resistant <0 or >8 . The reference range was not used to interpr et this result as normal/abnormal . Ciprofloxacin (test code See_Comment S [A utomated message] The = 7) system which ge nerated this result tra nsmitted reference range : Susceptible 0-0 .5 , Resistant <0 or >.5 . The reference r omero was not used to int erpret this result as normal/abnormal . Gentamicin (test code = See_Comment S [Au tomated message] The 18) system which ge nerated this result tra nsmitted reference range : Susceptible 0-4 , Resistant <0 or >4 . The reference range was not used to interpr et this result as normal/abnormal . Levofloxacin (test code = See_Comment S [ Automated message] The 22) system which ge nerated this result tra nsmitted reference range : Susceptible 0-1 , Resistant <0 or >1 . The reference range was not used to interpr et this result as normal/abnormal . Meropenem (test code = See_Comment S [Aut omated message] The 34) system which ge nerated this result tra nsmitted reference range : Susceptible 0-2 , Resistant <0 or >2 . The reference range was not used to interpr et this result as normal/abnormal . Piperacillin (test code = See_Comment S [ Automated message] The 24) system which ge nerated this result tra nsmitted reference range : Susceptible 0-1 6 , Resistant <0 or >16 . The reference r omero was not used to int erpret this result as normal/abnormal . Piperacillin + Tazobactam See_Comment S [ Automated message] The (test code = 29) system [facility] h generated this result tra nsmitted reference range : Susceptible 0-1 6 , Resistant <0 or >16 . The reference r omero was not used to int erpret this result as normal/abnormal . Tobramycin (test code = See_Comment S [Au tomated message] The 25) system which ge nerated this result tra nsmitted reference range : Susceptible 0-4 , Resistant <0 or >4 . The reference range was not used to interpr et this result as normal/abnormal . CULTURE ([facility]) (test PSEUDOMONAS AERUGINOSA A 1+ Pseudomonas code = 1095) aeruginosaof a second type Amikacin (test code = 1) See_Comment S [A utomated message] The system which ge nerated this result tra nsmitted reference range : Susceptible 0-1 6 , Resistant <0 or >16 . The reference r omero was not used to int erpret this result as normal/abnormal . Aztreonam (test code = See_Comment S [Aut omated message] The 32) system which ge nerated this result tra nsmitted reference range : Susceptible 0-8 , Resistant <0 or >8 . The reference range was not used to interpr et this result as normal/abnormal . Cefepime (test code = 51) See_Comment S [ Automated message] The system which ge nerated this result tra nsmitted reference range : Susceptible 0-8 , Resistant <0 or >8 . The reference range was not used to interpr et this result as normal/abnormal . Ceftazidime (test code = See_Comment S [A utomated message] The 27) system which ge nerated this result tra nsmitted reference range : Susceptible 0-8 , Resistant <0 or >8 . The reference range was not used to interpr et this result as normal/abnormal . Ciprofloxacin (test code See_Comment S [A utomated message] The = 7) system which ge nerated this result tra nsmitted reference range : Susceptible 0-0 .5 , Resistant <0 or >.5 . The reference r omero was not used to int erpret this result as normal/abnormal . Gentamicin (test code = See_Comment S [Au tomated message] The 18) system which ge nerated this result tra nsmitted reference range : Susceptible 0-4 , Resistant <0 or >4 . The reference range was not used to interpr et this result as normal/abnormal . Levofloxacin (test code = See_Comment S [ Automated message] The 22) system which ge nerated this result tra nsmitted reference range : Susceptible 0-1 , Resistant <0 or >1 . The reference range was not used to interpr et this result as normal/abnormal . Meropenem (test code = See_Comment S [Aut omated message] The 34) system which ge nerated this result tra nsmitted reference range : Susceptible 0-2 , Resistant <0 or >2 . The reference range was not used to interpr et this result as normal/abnormal . Piperacillin (test code = See_Comment S [ Automated message] The 24) system which ge nerated this result tra nsmitted reference range : Susceptible 0-1 6 , Resistant <0 or >16 . The reference r omero was not used to int erpret this result as normal/abnormal . Piperacillin + Tazobactam See_Comment S [ Automated message] The (test code = 29) system whic h generated this result tra nsmitted reference range : Susceptible 0-1 6 , Resistant <0 or >16 . The reference r moero was not used to int erpret this result as normal/abnormal . Tobramycin (test code = See_Comment S [Au tomated message] The 25) system which ge nerated this result tra nsmitted reference range : Susceptible 0-4 , Resistant <0 or >4 . The reference range was not used to interpr et this result as normal/abnormal . CULTURE (BEAKER) (test A 1+ Be ta-hemolytic code = 1095) streptococcus g roup G, by serological grouping GRAM STAIN RESULT 2+ WBCs (BEAKER) (test code = 1123) GRAM STAIN RESULT 2+ gram negative rods (BEAKER) (test code = 378471) GRAM STAIN RESULT 3+ gram positive rods (BEAKER) (test code = 568385) GRAM STAIN RESULT 3+ gram positive cocci (BEAKER) (test code = in pairs 475944) GRAM STAIN RESULT <1+ budding yeast (BEAKER) (test code = 881278) 1+ Normal respiratory renato presentPOCT-GLUCOSE [id number] 06:31:58 Test Item Value Reference Range Interpretation Comments POC-GLUCOSE METER 161 mg/dL 70-110 H : TESTED Facundo T [facility] 6720 (BEAKER) (test code = [place], 1538) [address]: Technical Director/Techni federico ID = [id number] for An Micheline amador PT/[id number] 04:30:44 Test Item Value Reference Range Interpretation Comments PROTIME (BEAKER) (test code = 14.1 seconds 11.9-14.2 759) INR (BEAKER) (test code = 370) 1.08 <=5.90 PARTIAL THROMBOPLASTIN TIME 40.1 seconds 22.5-36.0 H (BEAKER) (test code = 760) RECOMMENDED COUMADIN/WARFARIN INR THERAPY RANGESSTANDARD DOSE: 2.0 - 3.0 Includes: PROPHYLAXIS for venous thrombosis, systemic embolization; TREATMENT for venous thrombosis and/or pulmonary embolus.HIGH RISK: Target INR is 2.5-3.5 for patients with mechanical heart valves.COMPREHENSIVE METABOLIC PANEL 2023-06-23 04:29:44 Test Item Value Reference Range Interpretation Comments TOTAL PROTEIN 6.6 gm/dL 6.0-8.3 (BEAKER) (test code = 770) ALBUMIN (BEAKER) 3.1 g/dL 3.5-5.0 L (test code = 1145) ALKALINE 71 U/L 40-150 PHOSPHATASE (BEAKER) (test code = 346) BILIRUBIN TOTAL 1.1 mg/dL 0.2-1.2 (BEAKER) (test code = 377) SODIUM (BEAKER) 140 meq/L 136-145 (test code = 381) POTASSIUM (BEAKER) 3.2 meq/L 3.5-5.1 L (test code = 379) CHLORIDE (BEAKER) 100 meq/L 98-107 (test code = 382) CO2 (BEAKER) (test 26 meq/L 22-29 code = 355) BLOOD UREA 11 mg/dL 7-21 NITROGEN (BEAKER) (test code = 354) CREATININE 0.53 mg/dL 0.57-1.25 L (BEAKER) (test code = 358) GLUCOSE RANDOM 61 mg/dL 70-105 L (BEAKER) (test code = 652) CALCIUM (BEAKER) 9.2 mg/dL 8.4-10.2 (test code = 697) AST (SGOT) 16 U/L 5-34 (BEAKER) (test code = 353) ALT (SGPT) 10 U/L 6-55 (BEAKER) (test code = 347) EGFR (BEAKER) 119 Interpretatio [...] not appl icable for dialysis patien ts Technical Director ID - EDCBC W/PLT COUNT & AUTO [id number] 04:22:04 Test Item Value Reference Range Interpretation Comments WHITE BLOOD CELL COUNT (BEAKER) 4.0 K/ L 3.5-10.5 (test code = 775) RED BLOOD CELL COUNT (BEAKER) 3.33 M/ L 3.93-5.22 L (test code = 761) HEMOGLOBIN (BEAKER) (test code = 9.3 GM/DL 11.2-15.7 L 410) HEMATOCRIT (BEAKER) (test code = 29.8 % 34.1-44.9 L 411) MEAN CORPUSCULAR VOLUME (BEAKER) 90 fL 79-95 (test code = 753) MEAN CORPUSCULAR HEMOGLOBIN 27.9 pg 25.6-32.2 (BEAKER) (test code = 751) MEAN CORPUSCULAR HEMOGLOBIN CONC 31.2 GM/DL 32.2-35.5 L (BEAKER) (test code = 752) RED CELL DISTRIBUTION WIDTH 21.1 % 11.7-14.4 H (BEAKER) (test code = 412) PLATELET COUNT (BEAKER) (test 168 K/CU MM 150-450 code = 756) MEAN PLATELET VOLUME (BEAKER) 10.0 fL 9.4-12.3 (test code = 754) NUCLEATED RED BLOOD CELLS 0 /100 WBC 0-0 (BEAKER) (test code = 413) NEUTROPHILS RELATIVE PERCENT 65 % (BEAKER) (test code = 429) LYMPHOCYTES RELATIVE PERCENT 13 % (BEAKER) (test code = 430) MONOCYTES RELATIVE PERCENT 18 % (BEAKER) (test code = 431) EOSINOPHILS RELATIVE PERCENT 4 % (BEAKER) (test code = 432) BASOPHILS RELATIVE PERCENT 1 % (BEAKER) (test code = 437) NEUTROPHILS ABSOLUTE COUNT 2.60 K/ L 1.56-6.13 (BEAKER) (test code = 670) LYMPHOCYTES ABSOLUTE COUNT 0.51 K/ L 1.18-3.74 L (BEAKER) (test code = 414) MONOCYTES ABSOLUTE COUNT (BEAKER) 0.71 K/ L 0.24-0.36 H (test code = 415) EOSINOPHILS ABSOLUTE COUNT 0.16 K/ L 0.04-0.36 (BEAKER) (test code = 416) BASOPHILS ABSOLUTE COUNT (BEAKER) 0.03 K/ L 0.01-0.08 (test code = 417) IMMATURE GRANULOCYTES-RELATIVE 0.20 % 0.00-1.00 PERCENT (BEAKER) (test code = 2801) POCT-GLUCOSE [id number] 00:02:13 Test Item Value Reference Range Interpretation Comments POC-GLUCOSE METER 137 mg/dL 70-110 H : TESTED A T [facility] 6720 (BEAKER) (test code = [facility], 153) [address]: Technical Director/Techni federico ID = [id number] for An Micheline amador POCT-GLUCOSE [id number] 23:14:19 Test Item Value Reference Range Interpretation Comments POC-GLUCOSE METER 59 mg/dL 70-110 L : TESTED A T [facility] 6720 (BEAKER) (test code = [facility], 153) 22[address]: Technical Director/Techni federico ID = [id number] for NATE SONI ANDI POCT-GLUCOSE [id number] 16:38:19 Test Item Value Reference Range Interpretation Comments POC-GLUCOSE METER 111 mg/dL 70-110 H : TESTED A T [facility] 6720 (BEAKER) (test code [facility], = 1538) 109[address]: Technical Director/Techni federico ID = [id number] for DONIMILENA Diaz MAX POCT-GLUCOSE [id number] 15:03:48 Test Item Value Reference Range Interpretation Comments POC-GLUCOSE METER 58 mg/dL 70-110 L : TESTED A T [facility] 6720 (BEAKER) (test code = [facility], 153) [address]: Technical Director/Techni federico ID = [id number] for MELANIE MOSES COMPREHENSIVE METABOLIC [id number] 05:42:52 Test Item Value Reference Range Interpretation Comments TOTAL PROTEIN 7.4 gm/dL 6.0-8.3 (BEAKER) (test code = 770) ALBUMIN (BEAKER) 3.5 g/dL 3.5-5.0 (test code = 1145) ALKALINE 84 U/L 40-150 PHOSPHATASE (BEAKER) (test code = 346) BILIRUBIN TOTAL 1.1 mg/dL 0.2-1.2 (BEAKER) (test code = 377) SODIUM (BEAKER) 139 meq/L 136-145 (test code = 381) POTASSIUM (BEAKER) 3.5 meq/L 3.5-5.1 (test code = 379) CHLORIDE (BEAKER) 97 meq/L 98-107 L (test code = 382) CO2 (BEAKER) (test 25 meq/L 22-29 code = 355) BLOOD UREA 13 mg/dL 7-21 NITROGEN (BEAKER) (test code = 354) CREATININE 0.69 mg/dL 0.57-1.25 (BEAKER) (test code = 358) GLUCOSE RANDOM 63 mg/dL 70-105 L (BEAKER) (test code = 652) CALCIUM (BEAKER) 9.1 mg/dL 8.4-10.2 (test code = 697) AST (SGOT) 22 U/L 5-34 (BEAKER) (test code = 353) ALT (SGPT) 12 U/L 6-55 (BEAKER) (test code = 347) EGFR (BEAKER) 112 Interpretati on of eGFR (test code = 1092) mL/min/1.73 [...] not appl icable for dialysis patien ts Technical Director ID - [id number] 05:30:30 Test Item Value Reference Range Interpretation Comments PROCALCITONIN (BEAKER) (test code = < ng/mL <0.05 3036) SEPSIS RISK (ng/mL)Low: 0.05-0.50Intermediate: 0.51-2.00High: >=2.01CBC W/PLT COUNT & AUTO [id number] 04:34:21 Test Item Value Reference Range Interpretation Comments WHITE BLOOD CELL COUNT (BEAKER) 5.8 K/ L 3.5-10.5 (test code = 775) RED BLOOD CELL COUNT (BEAKER) 3.59 M/ L 3.93-5.22 L (test code = 761) HEMOGLOBIN (BEAKER) (test code = 9.9 GM/DL 11.2-15.7 L 410) HEMATOCRIT (BEAKER) (test code = 31.5 % 34.1-44.9 L 411) MEAN CORPUSCULAR VOLUME (BEAKER) 88 fL 79-95 (test code = 753) MEAN CORPUSCULAR HEMOGLOBIN 27.6 pg 25.6-32.2 (BEAKER) (test code = 751) MEAN CORPUSCULAR HEMOGLOBIN CONC 31.4 GM/DL 32.2-35.5 L (BEAKER) (test code = 752) RED CELL DISTRIBUTION WIDTH 21.6 % 11.7-14.4 H (BEAKER) (test code = 412) PLATELET COUNT (BEAKER) (test 200 K/CU MM 150-450 code = 756) MEAN PLATELET VOLUME (BEAKER) 9.9 fL 9.4-12.3 (test code = 754) NUCLEATED RED BLOOD CELLS 0 /100 WBC 0-0 (BEAKER) (test code = 413) NEUTROPHILS RELATIVE PERCENT 73 % (BEAKER) (test code = 429) LYMPHOCYTES RELATIVE PERCENT 8 % (BEAKER) (test code = 430) MONOCYTES RELATIVE PERCENT 16 % (BEAKER) (test code = 431) EOSINOPHILS RELATIVE PERCENT 2 % (BEAKER) (test code = 432) BASOPHILS RELATIVE PERCENT 1 % (BEAKER) (test code = 437) NEUTROPHILS ABSOLUTE COUNT 4.20 K/ L 1.56-6.13 (BEAKER) (test code = 670) LYMPHOCYTES ABSOLUTE COUNT 0.46 K/ L 1.18-3.74 L (BEAKER) (test code = 414) MONOCYTES ABSOLUTE COUNT (BEAKER) 0.93 K/ L 0.24-0.36 H (test code = 415) EOSINOPHILS ABSOLUTE COUNT 0.10 K/ L 0.04-0.36 (BEAKER) (test code = 416) BASOPHILS ABSOLUTE COUNT (BEAKER) 0.05 K/ L 0.01-0.08 (test code = 417) IMMATURE GRANULOCYTES-RELATIVE 0.30 % 0.00-1.00 PERCENT (BEAKER) (test code = 2801) LACTIC ACID, [id number] 19:06:41 Test Item Value Reference Range Interpretation Comments LACTATE BLOOD VENOUS (2) (BEAKER) 1.20 mmol/L 0.50-2.20 (test code = 2872) CT ABDOMEN/PELVIS WITH IV [id number] 18:32:24 [facility] 1980 Sex: FEXAM: CT Abdomen and Pelvis With Intravenous ContrastCLINICAL INDICATION: Abdominal pain, acute, nonlocalizedTECHNIQUE: Axial computed tomography images of the abdomen and pelviswith intravenous contrast. This CT exam was performed using one or moreof the following dose reduction techniques: automated exposure control,adjustment of the mA and/or kV according to patient size, and/or use ofiterative violet nstruction technique.COMPARISON: No relevant prior studies available.FINDINGS:Lung bases: Unremarkable. No mass. No consolidation.ABDOMEN:Liver: There is fatty infiltration of the liver. No focal liverlesionis seen.Gallbladder and bile ducts: Unremarkable. No calcified stones. Noductal dilation.Pancreas: Unremarkable. No mass. No ductal dilation.Spleen: Unremarkable. No splenomegaly.Adrenals: Unremarkable. No mass.Kidneys and ureters: Unremarkable. No solid mass. No hydronephrosis.Stomach and bowel: See below. PELVIS:Appendix: The appendix is normal. Bowel loops are nondilated. There isdense stoolwithin a nondilated sigmoid colon which could indicateconstipation. No acute inflammatory changes are seen involving thebowel.Bladder: Unremarkable. No mass.Reproductive: Unremarkable as visualized.ABDOMEN and PELVIS:Intraperitoneal space: Unremarkable. No free air. No significantfluid collection.Bones/joints: No acute fracture. No dislocation.Soft tissues: Unremarkable.Vasculature: The abdominal aorta is mildly calcified but nondilated.Lymph nodes: Unremarkable. No enlarged lymph nodes.Tubes, linesand devices: There is a gastrostomy tube in the stomach.IMPRESSION:1. There is a gastrostomy tube inthe stomach.2. The appendix is normal. Bowel loops are nondilated. There is densestool within a nondilated sigmoid colon which could indicateconstipation. No acute inflammatory changes are seen involving thebowel.Electronically Signed By: Vinh Bustillos06/21/2023 18:34 CDTWorkstation Name: [id number] CHEST FOR PULMONARY [id number] 18:23:13[facility] : 1980 Sex: FEXAM: CT Angiography Chest With Intravenous ContrastCLINICAL INDICATION: PE suspected, high probTECHNIQUE: Axial computed tomographic angiography images of the chestwith intravenous contrast. This CT exam was performed using one or moreof the following dose reduction techniques: automated exposure control,adjustment of the mA and/or kV according to patient size, and/or use ofiterative reconstruction technique. MIP reconstructed images werecreated and reviewed.COMPARISON: No relevant prior studies available.FINDINGS:Pulmonary arteries: The pulmonary arterial tree is well opacified withcontrast. No pul monary embolism is identified.Aorta: The thoracic aorta is nondilated. There is no aneurysm ordissection.Lungs and pleural spaces: Small areas of patchy infiltrates in theright upper lobe suspicious for pneumonia. The lungs are otherwiseclear. No mass. No significant effusion.Heart: Unremarkable. No ca rdiomegaly. No significant pericardialeffusion. No evidence of RV dysfunction.Bones/joints: No acutefracture. No dislocation.Soft tissues: Unremarkable.Lymph nodes: Unremarkable. No enlarged lymph nodes.Tubes, lines and devices: There is a tracheostomy in standard position.IMPRESSION:1. Small areas of patchy infiltrates in the right upper lobe suspiciousfor pneumonia. The lungs are otherwise clear.2. The pulmonary arterial tree is well opacified with contrast. Nopulmonary embolism is identified.Electronically Signed By: Vinh Bustillos06/21/2023 18:25 CDTWorkstation Name: [id number], QUANTITATIVE, [id number] 17:08:37 Test Item Value Reference Range Interpretation Comments GONADOTROPIN, CHORIONIC (HCG) QUANT < mIU/mL 0-10 (VALENTÍNAKER) (test code = 649) Non- Females: <10 mIU/mL Females: Gestation Age Reference Range(mIU/mL) 0.2-1 Week 5-50 1-2 Weeks 50-500 2-3 Weeks 100-5,000 3-4 Weeks 500-10,000 4-5 Weeks 1,000-50,000 5-6 Weeks 10,000-100,000 6-8 Weeks 15,000- 200,000 2-3 Months 10,000-100,000SARS-COV2/INFLUENZA/RSV [id number] 16:08:04 Test Item Value Reference Range Interpretation Comments SARS-COV2/RT-PCR Positive Negative AA The SARS-Co V-2 target (test code = nucleic acids a re 5843304) detected in thi s specimen. The p resence SARS-CoV-2 nucl eic acids cannot rule out co-infections o r disease caused by other viral or bacterial patho gens. As with any molecu lar test, mutations withi n the target regions of the Xpert Xpress SA RS-CoV-2 test could affe ct primer and/or probe bi nding resulting in fa ilure to detect the pres ence of virus or the vi pollo being detected less predictably. Fa lse negative result s may occur if virus is present at levels below the analytical limi t of detection. This SARS CoV-2 test is a rapid, real-time RT-PC R test intended for e qualitative det ection of nucleic acid fr om SARS-CoV-2 in a nasopharyngeal swab specimen collec mamie from individuals jalen pected of COVID-19 by [facility]. Results from e Xpert Xpress SARS-CoV -2 test should be corre lated with the clinical hi story, epidemiological data, and other data avai lable to the clinician e valuating the patient. Vi ral nucleic acid ma y persist in vivo, indepe ndent of virus viability . Detection of an alyte target(s) does not imply that the corres ponding virus(es) are i nfectious or are the caus ative agents for clin ical symptoms. INFLUENZA A RT-PCR Negative Negative The Flu A target nucleic (test code = acids are not d etected in 19101008) this specimen. INFLUENZA B RT-PCR Negative Negative The Flu B target nucleic (test code = acids are not d etected in 19101009) this specimen. RSV RT-PCR (test Negative Negative The RSV tar get nucleic code = 5761563) acids are no t detected in this specimen. The presence of SARS-CoV-2/FLU/RSV viral nucleic acids cannot rule out co- infections or disease caused by other viral or bacterial pathogens. As with any molecular test, mutations within the target regions of the Xpert Xpress SARS-CoV-2/Flu/RSV test could affect primer and/or probe binding resulting in failure to detect the presence of virus or the virus being detected less predictably. False negative results may occur if the virus is present at levels below the analytical limit of detection in thisspecimen.This Xpert Xpress SARS-CoV-2/Flu/RSV test is a rapid, real-time RT-PCR test intended for the qualitative detection of nucleic acid from Xpert Xpress SARS-CoV-2/Flu/RSV in a nasopharyngeal swabspecimen collected from individuals suspected of Xpert Xpress SARS-CoV-2/Flu/RSV by their healthcareprovider. Results from [facility] Xpert Xpress SARS-CoV-2/Flu/RSV test should be correlated with the clinical history, epidemiological data, and other data available to the clinician evaluating the patient. Viral nucleic acid may persist in vivo, independent of virus viability. Detection of analyte target(s)does not imply that the corresponding virus(es) are infectious or are the causative agents for clinical symptoms.This test has not been Food and Drug Administration (FDA) cleared or approved and has been authorized by FDA under an Emergency Use Authorization (EUA). This EUA will be effective until thedeclaration that circumstances exist justifying the authorization of the emergency use of in vitro diagnostic tests for detection and/or diagnosis of COVID-19 is terminated under Section 564(b)(2) of the Act or the EUA is revoked under Section 564(g) of the Act.Fact Sheet for Healthcare Providers:https ://www.mojio/Documents/Xpert%20Xpress%20SARS%20CoV-2/Fact%20Sheets/302-390 2%00UCNB-YQU-5%20HEALTHCARE%20PROVIDERS%20FACT%20SHEET.pdfFact Sheet for Healthcare Patients:https://www.mojio/Docum ents/Xpert%20Xpress%20SARS%20Cov-2/Fact%20Sheets/302-3801%87YVNI-RZF-8%20PATIENT %20FACT%20SHEET.[id number] 15:50:45 Test Item Value Reference Range Interpretation Comments MAGNESIUM (BEAKER) (test code = 2.0 mg/dL 1.6-2.6 627) COMPREHENSIVE METABOLIC [id number] 15:50:45 Test Item Value Reference Range Interpretation Comments TOTAL PROTEIN 9.0 gm/dL 6.0-8.3 H Specimen sligh tly (BEAKER) (test hemolyzed code = 770) ALBUMIN (BEAKER) 4.9 g/dL 3.5-5.0 Specimen sl ightly (test code = 1145) hemolyzed ALKALINE 98 U/L 40-150 PHOSPHATASE (BEAKER) (test code = 346) BILIRUBIN TOTAL 1.3 mg/dL 0.2-1.2 H Specimen sli ghtly (BEAKER) (test hemolyzed code = 377) SODIUM (BEAKER) 136 meq/L 136-145 (test code = 381) POTASSIUM (BEAKER) 3.7 meq/L 3.5-5.1 Specimen slightly (test code = 379) hemolyzed CHLORIDE (BEAKER) 95 meq/L 98-107 L (test code = 382) CO2 (BEAKER) (test 25 meq/L 22-29 code = 355) BLOOD UREA 11 mg/dL 7-21 NITROGEN (BEAKER) (test code = 354) CREATININE 0.66 mg/dL 0.57-1.25 Specimen slight ly (BEAKER) (test hemolyzed code = 358) GLUCOSE RANDOM 76 mg/dL 70-105 (BEAKER) (test code = 652) CALCIUM (BEAKER) 9.8 mg/dL 8.4-10.2 (test code = 697) AST (SGOT) 30 U/L 5-34 Specimen slight ly (BEAKER) (test hemolyzed code = 353) ALT (SGPT) 11 U/L 6-55 Specimen slight ly (BEAKER) (test hemolyzed code = 347) EGFR (BEAKER) 113 Interpretatio n of eGFR (test code = [...] not appl icable for dialysis patien ts HIGH SENSITIVITY TROPONIN [id number] 15:48:39 Test Item Value Reference Range Interpretation Comments HIGH SENSITIVITY TROPONIN I (test < pg/ml <=34 code = 3130243) The High-Sensitivity Troponin I assay is performed on Interhyp IM Analyzer. Results of this assay should always be interpreted in conjunction with the patient's medical history, clinical presentation, and other findings. [id number] 15:44:25 Test Item Value Reference Range Interpretation Comments PHOSPHORUS (BEAKER) 5.1 mg/dL 2.3-4.7 H Specimen slightly (test code = 604) hemolyzed B-TYPE NATRIURETIC FACTOR (BNP)2023-06-21 15:44:25 Test Item Value Reference Range Interpretation Comments B-TYPE NATRIURETIC PEPTIDE (BEAKER) 23 pg/mL 0-100 (test code = 700) CBC W/PLT COUNT & AUTO [id number] 15:33:35 Test Item Value Reference Range Interpretation Comments WHITE BLOOD CELL COUNT (BEAKER) 8.8 K/ L 3.5-10.5 (test code = 775) RED BLOOD CELL COUNT (BEAKER) 4.41 M/ L 3.93-5.22 (test code = 761) HEMOGLOBIN (BEAKER) (test code = 12.5 GM/DL 11.2-15.7 410) HEMATOCRIT (BEAKER) (test code = 37.8 % 34.1-44.9 411) MEAN CORPUSCULAR VOLUME (BEAKER) 86 fL 79-95 (test code = 753) MEAN CORPUSCULAR HEMOGLOBIN 28.3 pg 25.6-32.2 (BEAKER) (test code = 751) MEAN CORPUSCULAR HEMOGLOBIN CONC 33.1 GM/DL 32.2-35.5 (BEAKER) (test code = 752) RED CELL DISTRIBUTION WIDTH 20.5 % 11.7-14.4 H (BEAKER) (test code = 412) PLATELET COUNT (BEAKER) (test 266 K/CU MM 150-450 code = 756) MEAN PLATELET VOLUME (BEAKER) 9.9 fL 9.4-12.3 (test code = 754) NEUTROPHILS RELATIVE PERCENT 76 % (BEAKER) (test code = 429) LYMPHOCYTES RELATIVE PERCENT 10 % (BEAKER) (test code = 430) MONOCYTES RELATIVE PERCENT 12 % (BEAKER) (test code = 431) EOSINOPHILS RELATIVE PERCENT 1 % (BEAKER) (test code = 432) BASOPHILS RELATIVE PERCENT 1 % (BEAKER) (test code = 437) NEUTROPHILS ABSOLUTE COUNT 6.69 K/ L 1.56-6.13 H (BEAKER) (test code = 670) LYMPHOCYTES ABSOLUTE COUNT 0.83 K/ L 1.18-3.74 L (BEAKER) (test code = 414) MONOCYTES ABSOLUTE COUNT (BEAKER) 1.08 K/ L 0.24-0.36 H (test code = 415) EOSINOPHILS ABSOLUTE COUNT 0.05 K/ L 0.04-0.36 (BEAKER) (test code = 416) BASOPHILS ABSOLUTE COUNT (BEAKER) 0.07 K/ L 0.01-0.08 (test code = 417) IMMATURE GRANULOCYTES-RELATIVE 0.50 % 0.00-1.00 PERCENT (LORRI) (test code = 2801) [id number] 14:44:21 Test Item Value Reference Range Interpretation Comments POC-CREATININ 0.8 mg/dL 0.6-1.3 : TESTED AT [facility] [address] (LORRI) [place], [facility] (test code = 05797: Technical Director /Gas Burner Operator 1859) ID = [id number] for Maureen Sheffield POC-EGFR 95 Interpretation of eGFR (LORRI) mL/min/1.73M2 Values Stage D escription (test code = Result G1 Ella l or high 1859) >=90 G2 Mildly decreased 60-89 G3a Mildl y to moderately 45-5 9 G3b Moderately to s [place] 30-44 G4 Severely de creased 15-29 G5 Kidney Failu re <15Reported eGF R is based on the CKD-EPI 202 1 equation that does not u se a race coefficientEsti mated GFR is not as accurate as Creatinine Clementine robson in predicting glom erular filtration rate . Estimated GFR is not appl icable for dialysis patien ts TISSUE [id number] 18:48:03Surgical Pathology Report Case: [id number] Authorizing Provider: Susanna Wick MD Collected: 03/14/2023 09:04 AM Ordering Location: [address] Received: 03/15/2023 02:25 PM Service Pathologist: [...] Tissue, Other, Right base of tongue margin, newmargin, stitch pereira right anterior lateral, true margin inked I) - Neck, Left, Left neck dissectionA. LYMPH NODES, LEVEL 1A, NECK DISSECTION: - [...] RIGHT, MARGIN, RESECTION: - NEGATIVE FOR MALIGNANCYH. BASEOF TONGUE, RIGHT, MARGIN, RESECTION: - NEGATIVE FOR MALIGNANCYI. LYMPH NODES, LEFT, NECK DISSECTION:- TWENTY-TWO LYMPH NODES, NEGATIVE FOR METASTATIC CARCINOMA (0/22) Signing Pathologist Direct Phone Line: [phone] signed by Eb Toney MD on 03/24/2023 at 6:48 PMRe-excision of the positive margins (floor of mouth, retromolar trigone, right base of tongue) are negative. Clinical correlation is recommended for the significance of the cauterized tumor at right soft tissue margin/positive margin. ORAL CAVITYLIP AND ORAL CAVITY: INCISIONAL BX, EXCISIONAL BX, RESECTION - All [id number] Edition - Protocol posted: 08/20/2021PECIMEN Procedure: Glossectomy: subtotal TUMOR Tumor Focal ity: Unifocal Tumor Site: Oral cavity Tumor Subsite: Lateral border of tongue: posterior right TumorLaterality: Right Tumor Size: Greatest Dimension (Centimeters): 4.1 cm Additional Dimension (Centimeters): 2.7 cm Additional Dimension (Centimeters): 2.2 cm Histologic Type: : Squamous cell carcinoma, c onventional Histologic Grade: G2, moderately differentiated Tumor Depth of Invasion (DOI): At least:18 mm Lymphovascular Invasion: Present Perineural Invasion: Present Extent of Perineural Invasion: extensive Worst Pattern of Invasion (WPOI): WPOI 5 MARGINS Specimen Margin Status for Invasive Tumor: I nvasive tumor present at specimen margin Specimen Margin(s) [...] information, including but potentially not limited to thispathology report. pT Category: pT4a pN Category: pN2b ADDITIONAL FINDINGS Additional Findings: Epithelial hyperplasia A. 81987N. 19863B. 42434G. 76723, 39777 x 1, 29945 x 5, 87840 x 1, 05895 x 2E. 80122, 92461 x 1F. 06907U. 91185, 80601Z. 04024 38282, 91789 x 1, 98585 x 1I. 38826, 45457 x 1Tongue cancerGlossectomy and bilateral neck lymph [...] cut surface. The lymph nodes and a outbound sales representative section of this gland are submitted as described below.B1-1 possible lymph node, bisectedB2-1 lymph node, bisectedB3-1 lymph node, trisectedB 4-1 lymph node, bisectedB5-outbound sales representative section of glandC. Neck, LeftPart [...] node, sectionedC4-1 lymph node, bisectedC5-1 whole possible nodeC6-outbound sales representative section of glandD. Soft Tissue, OtherThe specimen is received fresh for intraoperative consultation, labeled with the patient's information and" soft tissue" is a 7.5 x 5.0 x 3.5 cm gill-pink mucosal covered glossectomy with attached right uvula and tonsil, measuring 4.0 x 3.0 x 1.0 cm. The right lateral tongue displays aan ulcerated, gill-brown lesion measuring 1.8 x 1.1 cm located 4.2 cm from tip of tongue, 1.2 cm fromthe base of tongue, 1.0 cm from the [...] with the oropharynx and uvula. There is afirm, gill white mass with infiltrative borders, measuring 4.1 x 2.7 x 2.2 located in the posterior aspect of the tongue. It is 0.2 cm from the superior mucosa, 0.4 cm from the deep margin, abutting theright soft tissue margin, 1.2 cm from the left soft tissue margin, and 0.1 cm from the base of tongue margin (right aspect). There are two additional white lesions within the anterior/mid aspect of thetongue, which measure 1.5 x 0.3 x 0.2 [...] base of tongue (yellow at tip and anterior)N89-edbql 2, start of kjzokpowdjY16- slice 3, continuity of moviwdkocuS40- slice 4, continuity of psvklfmrqgL20- slice 5, continuity of vzqibbmnjzA99- slice 6, continuity of ngrvidlpcfY12- slice 7- mass, closest deep ofrhcaC14- slice 9, Mass, with the closest left soft tissue nebkftA97- Slice 10,outbound sales representative section of massD20- Slice 11, tumor abutting right soft jowcibH12- D24- base of tongue, perpendicular sections, right side, with closest tumor to base of cpllknK35-O77- outbound sales representative sections of mngpdmgxqfE15- outbound sales representative sections of uvulaE. Soft Tissue, [...] E1=FSE.F. Neck, RightPart F is received in formalin,labeled with the patient's information and" right neck dissection" is a 5.0 x 4.0 x 1.0 cm aggregateof gill-yellow fibrofatty tissue. There are multiple lymph nodes identified, ranging from 0.2 to 3.0 cm in greatest dimension. The largest lymph node is serially sectioned, revealing multiple areas of gill-white, irregular discolorations. The lymph nodes are submitted as follows.F1-F4-1 lymph node, serially sectioned (largest)F5- 1 lymph node, bisected F 6-1 lymph node, bisectedF7-1 lymph node, bisectedF8-1 lymph node, bisectedF9-1 lymph node, lphlprkzW51-2 lymph node, rwpxgzkaZ48-7 lymph node, bisectedF 12-1 lymph node, bisectedF 13-4 whole possible kclqgF05-7 whole possible nodesG. Soft Tissue, Otherspecimen received fresh for intraoperative evaluation and labeled with the patient's information and "right retromolar trigone margin, true margin inked, stitch pereira anterior" is a 2.1 x 1.4 x 0.5 cmred-gill soft tissue fragment. the inked margin is re-inked blue and the anterior stitch is inked orange. The inked margin was shaved and submitted en face for frozen evaluation. the margin for the remanent specimen was inked green, the specimen serially sectioned and entirely submitted for permanent.Cassette code:G1 = FS GG2-G4= RemanentH. Soft Tissue, Other specimen received fresh for intraoperativeevaluation and labeled with the patient's information and " right base of tongue margin, new margin, stitch pereira right anterior lateral, true margin inked" is a 2.5 x 2 x 2 cm red- gill soft tissue fragment. the inked margin is re-inked blue and the anterior stitch is inked orange. The inked margin wasshaved and submitted en face for frozen evaluation. the margin for the remanent specimen was inked green, the specimen serially sectioned and entirely submitted for permanent.Cassette code:H1 = FSH H2-H4 = remanentI. Neck, LeftPart is received in formalin, labeled with the patient's information and "neck left" is a 5.0 x 3.0 x 1.5 cm aggregate of gill-yellow fibrofatty tissue. Multiple lymph nodes areidentified, ranging from 0.1 to 2.0 cm in greatest dimension. The lymph nodes are submitted as follows.I1-I2-1 lymph node, trisectedI 3-1 lymph node, serially sectionedI4-1 lymph node, sectionedI5-1 lymph node, bisectedI6-4 whole lymph nodesI7-5 whole lymph nodesI8-4 whole lymph nodesI9-4 whole lymph qthjgE97-5 whole lymph nodesD. Soft Tissue, OtherFROZEN SECTIONSubtotal glossectomyD1-D6: Right base of tongue and anterior oropharyngeal margin, positive for malignancyReported to Dr. Wick at 11:47 AM on 03/14/2023.Reported by Dr. Arce, pathologist.E. Soft Tissue, Other Right floor of mouth: - negativefor malignancy.The results was reported by Dr. Arce to Dr. Wick at 11:28 AM on 03/14/2023. G. Soft Tissue, OtherRight Retromolar trigone:-Negative for malignancy.The result was reported by Dr. Arce to at 12:38 PM on 03/14/2023.H. Soft Tissue, OtherRight base of tongue margin:- Negative for malignancy.The result was reported by Dr. Arce to Dr. Wick at 12:38 PM on 03/14/2023.PerformedThe interpretation of this case included the use of immunohistochemistry or special stains.D18, L33WP63 & D2-40: yvglqzewH13- tkghlfxiU1MR21- gxycqqufJ96- negative I10P40- negativeControl Slides Examined: In-house known positive controls were evaluated along with the test tissue. These control slides run alongsideof the patients sample show appropriate staining. Internal positive and negative controls when available are evaluated Immunohistochemistry technical testing was performed at [facility], Pathology Laboratory where it was [...] qualified to perform high complexity clinical laboratory testing.[facility], Department of Pathology, [address] [place] [address], [facility], [address] [place] [address], [facility], [facility] of Pathology, [address] [place] [address], BCDO-GLUCOSE [id number] 12:40:41 Test Item Value Reference Range Interpretation Comments POC-GLUCOSE METER 107 mg/dL 70-110 : TESTED A T [facility] 6720 (BEAKER) (test code = [facility], 1538) 387[address]: Technical Director/Techni federico ID = [id number] for TIRSO JAVIER [id number] 07:32:41 Test Item Value Reference Range Interpretation Comments MAGNESIUM (BEAKER) (test code = 2.0 mg/dL 1.6-2.6 627) Technical Director ID - [id number] 07:32:41 Test Item Value Reference Range Interpretation Comments PHOSPHORUS (BEAKER) (test code = 5.2 mg/dL 2.3-4.7 H 604) Technical Director ID - EOOBASIC METABOLIC [id number] 07:32:40 Test Item Value Reference Range Interpretation [...] not appl icable for dialysis patien ts Technical Director ID - EOOPOCT-GLUCOSE [id number] 06:26:25 Test Item Value Reference Range Interpretation Comments POC-GLUCOSE METER 84 mg/dL 70-110 : TESTED A T [facility] 6720 (BEAKER) (test code = [facility], 1538) 74150: Technical Director/Techni federico ID = [id number] for SEMI EN, HANG CBC (HEMOGRAM ONLY)2023-03-22 [...] 0-0 (BEAKER) (test code = 413) POCT-GLUCOSE [id number] 23:51:48 Test Item Value Reference Range Interpretation Comments POC-GLUCOSE METER 127 mg/dL 70-110 H : TESTED A T [facility] 6720 (BEAKER) (test code = [facility], 1538) 85704: Technical Director/Techni federico ID = [id number] for SE MITAMIKO, HANG POCT-GLUCOSE [id number] 15:58:20 Test Item Value Reference Range Interpretation Comments POC-GLUCOSE METER 101 mg/dL 70-110 : TESTED A T [facility] 6720 (BEAKER) (test code = [facility], 1538) 02955: Technical Director/Techni federico ID = [id number] for Al rahel, Sonali POCT-GLUCOSE [id number] 13:10:10 Test Item Value Reference Range Interpretation Comments POC-GLUCOSE METER 102 mg/dL 70-110 : TESTED A T [facility] 6720 (BEAKER) (test code = [facility], 1538) 47749: Technical Director/Techni federico ID = [id number] for Al rahel, Sonali POCT-GLUCOSE [id number] 06:57:42 Test Item Value Reference Range Interpretation Comments POC-GLUCOSE METER 98 mg/dL 70-110 : TESTED A T [facility] 6720 (BEAKER) (test code = [facility], 1538) 32198: Technical Director/Techni federico ID = [id number] for SEMI ENFADUMOE [id number] 06:09:48 Test Item Value Reference Range Interpretation Comments MAGNESIUM (BEAKER) (test code = 1.9 mg/dL 1.6-2.6 627) Technical Director ID - SARAH [id number] 06:09:48 Test Item Value Reference Range Interpretation Comments PHOSPHORUS (BEAKER) (test code = 4.2 mg/dL 2.3-4.7 604) Technical Director LARON SMITH WBASIC METABOLIC [id number] 06:09:47 Test Item Value Reference Range Interpretation [...] not appl icable for dialysis patien ts Technical Director LARON SMITH WCBC (HEMOGRAM ONLY)2023-03-21 05:41:00 Test Item [...] 0-0 (BEAKER) (test code = 413) POCT-GLUCOSE [id number] 02:33:24 Test Item Value Reference Range Interpretation Comments POC-GLUCOSE METER 80 mg/dL 70-110 : TESTED A T [facility] 6720 ([facility] (test code = [facility], 153) 86661: Technical Director/Techni federico ID = [id number] for Sue Brito POCT-GLUCOSE [id number] 18:37:31 Test Item Value Reference Range Interpretation Comments POC-GLUCOSE METER 84 mg/dL 70-110 : TESTED A T [facility] 6720 (BEAKER) (test code = [facility], 153) 33001: Technical Director/Techni federico ID = [id number] for Power macias, Angela POCT-GLUCOSE [id number] 13:00:04 Test Item Value Reference Range Interpretation Comments POC-GLUCOSE METER 91 mg/dL 70-110 : TESTED A T [facility] 6720 (BEAKER) (test code = [facility], 153) 26399: Technical Director/Techni federico ID = [id number] for Power macias, Angela [id number] 06:24:55 Test Item Value Reference Range Interpretation Comments PHOSPHORUS (BEAKER) (test code = 3.2 mg/dL 2.3-4.7 604) Technical Director ID - EOOBASIC METABOLIC [id number] 06:24:54 Test Item Value Reference Range Interpretation [...] not appl icable for dialysis patien ts Technical Director ID - [id number] 06:24:54 Test Item Value Reference Range Interpretation Comments MAGNESIUM (BEAKER) (test code = 1.9 mg/dL 1.6-2.6 627) Technical Director ID - EOOPOCT-GLUCOSE [id number] 05:44:23 Test Item Value Reference Range Interpretation Comments POC-GLUCOSE METER 73 mg/dL 70-110 : TESTED A T [facility] 6720 (BEAKER) (test code = [facility] [place], 1538) 17770: Technical Director/Techni federico ID = [id number] for Ramiro Pitts CBC (HEMOGRAM ONLY)2023-03-20 05:41:41 [...] 0-0 (BEAKER) (test code = 413) POCT-GLUCOSE [id number] 01:11:53 Test Item Value Reference Range Interpretation Comments POC-GLUCOSE METER 99 mg/dL 70-110 : TESTED A T [facility] 6720 ([facility]) (test code = [facility], [facility]) 66171: Technical Director/Techni federico ID = [id number] for Real Lorenzoiela POCT-GLUCOSE [id number] 18:05:19 Test Item Value Reference Range Interpretation Comments POC-GLUCOSE METER 141 mg/dL 70-110 H : TESTED A T [facility] 6720 (BEAKER) (test code = [facility], [facility]) 75990: Technical Director/Techni federico ID = [id number] for Ok makenna, Avery POCT-GLUCOSE [id number] 05:30:38 Test Item Value Reference Range Interpretation Comments POC-GLUCOSE METER 139 mg/dL 70-110 H : TESTED A T [facility] 6720 (BEAKER) (test code = [facility], 153) 58744: Technical Director/Techni federico ID = [id number] for Ad ams, Kimetra [id number] 02:57:20 Test Item Value Reference Range Interpretation Comments MAGNESIUM (BEAKER) (test code = 1.9 mg/dL 1.6-2.6 627) [id number] 02:57:20 Test Item Value Reference Range Interpretation Comments PHOSPHORUS (BEAKER) (test code = 3.7 mg/dL 2.3-4.7 604) BASIC METABOLIC [id number] 02:57:19 Test Item Value Reference Range Interpretation [...] 0-0 (BEAKER) (test code = 413) POCT-GLUCOSE [id number] 23:35:47 Test Item Value Reference Range Interpretation Comments POC-GLUCOSE METER 146 mg/dL 70-110 H : TESTED A T [facility] 6720 (BEAKER) (test code = [facility], 1538) 36452: Technical Director/Techni federico ID = [id number] for Ad ams, Paytonetra POCT-GLUCOSE [id number] 13:10:55 Test Item Value Reference Range Interpretation Comments POC-GLUCOSE METER 98 mg/dL 70-110 : TESTED A T [facility] 6720 (BEAKER) (test code = [facility], 1538) 04206: Technical Director/Techni federico ID = [id number] for NIST OR, TIFFANY [id number] 02:07:47 Test Item Value Reference Range Interpretation Comments PHOSPHORUS (BEAKER) (test code = 3.7 mg/dL 2.3-4.7 604) Technical Director ID - [id number] 02:07:46 Test Item Value Reference Range Interpretation Comments MAGNESIUM (BEAKER) (test code = 1.8 mg/dL 1.6-2.6 627) Technical Director ID - MARCOBASIC METABOLIC [id number] 02:07:46 Test Item Value Reference Range Interpretation [...] not appl icable for dialysis patien ts Technical Director ID - MARCOCBC (HEMOGRAM ONLY)2023-03-18 01:43:23 Test [...] 0-0 (BEAKER) (test code = 413) POCT-GLUCOSE [id number] 06:11:57 Test Item Value Reference Range Interpretation Comments POC-GLUCOSE METER 116 mg/dL 70-110 H : TESTED A T [facility] 6720 (BEAKER) (test code = [facility] [place], 1538) 25096: Technical Director/Techni federico ID = [id number] for IB ENEME, EUCHERIA BASIC METABOLIC [id number] 04:24:08 Test Item Value Reference Range Interpretation [...] not appl icable for dialysis patien ts Technical Director ID - [id number] 04:24:08 Test Item Value Reference Range Interpretation Comments MAGNESIUM (BEAKER) (test code = 3.9 mg/dL 1.6-2.6 H 627) Technical Director ID - [id number] 04:24:08 Test Item Value Reference Range Interpretation Comments PHOSPHORUS (BEAKER) (test code = 3.1 mg/dL 2.3-4.7 604) Technical Director ID - ADMINCBC (HEMOGRAM ONLY)2023-03-17 03:52:15 Test [...] 0-0 (BEAKER) (test code = 413) POCT-GLUCOSE [id number] 00:05:32 Test Item Value Reference Range Interpretation Comments POC-GLUCOSE METER 125 mg/dL 70-110 H : TESTED A T [facility] 6720 (BEAKER) (test code = [facility] [place], 1538) 00156: Technical Director/Techni federico ID = [id number] for IB ALICIA EUCIA POCT-GLUCOSE [id number] 18:44:19 Test Item Value Reference Range Interpretation Comments POC-GLUCOSE METER 125 mg/dL 70-110 H : Notified RN/MD: (BEAKER) (test code = TESTED AT [facility] 6720 1538) [facility], [address]: Technical Director/Techni federico ID = [id number] for Senia Villatoro POCT-GLUCOSE [id number] 13:09:35 Test Item Value Reference Range Interpretation Comments POC-GLUCOSE METER 108 mg/dL 70-110 : TESTED A T [facility] 6720 ([facility]) (test code = [facility], 153) 45355: Technical Director/Techni federico ID = [id number] for Senia Villatoro [id number] 05:44:01 Test Item Value Reference Range Interpretation Comments PHOSPHORUS (BEAKER) (test code = 3.4 mg/dL 2.3-4.7 604) Technical Director ID - MMBASIC METABOLIC [id number] 05:44:00 Test Item Value Reference Range Interpretation [...] not appl icable for dialysis patien ts Technical Director ID - [id number] 05:44:00 Test Item Value Reference Range Interpretation Comments MAGNESIUM (BEAKER) (test code = 2.6 mg/dL 1.6-2.6 627) Technical Director ID - MMCBC (HEMOGRAM ONLY)2023-03-16 05:40:09 Test [...] 0-0 (BEAKER) (test code = 413) POCT-GLUCOSE [id number] 00:06:45 Test Item Value Reference Range Interpretation Comments POC-GLUCOSE METER 127 mg/dL 70-110 H : TESTED A T [facility] 6720 (BEAKER) (test code [facility], = 1538) 88887: Technical Director/Techni federico ID = [id number] for Balwinder Smith POCT-GLUCOSE [id number] 17:44:55 Test Item Value Reference Range Interpretation Comments POC-GLUCOSE METER 119 mg/dL 70-110 H : TESTED A T [facility] 6720 (BEAKER) (test code = [facility], 1538) 63785: Technical Director/Techni federico ID = [id number] for Senia Villatoro POCT-GLUCOSE [id number] 14:16:32 Test Item Value Reference Range Interpretation Comments POC-GLUCOSE METER 120 mg/dL 70-110 H : TESTED A T [facility] 6720 (BEAKER) (test code = [facility], 1538) 00685: Technical Director/Techni federico ID = [id number] for Senia Villatoro [id number] 05:50:48 Test Item Value Reference Range Interpretation Comments MAGNESIUM (BEAKER) (test code = 1.5 mg/dL 1.6-2.6 L 627) Technical Director ID - SARAH [id number] 05:50:48 Test Item Value Reference Range Interpretation Comments PHOSPHORUS (BEAKER) (test code = 4.0 mg/dL 2.3-4.7 604) Technical Director ID - SRAAH WBASIC METABOLIC [id number] 05:50:47 Test Item Value Reference Range Interpretation [...] not appl icable for dialysis patien ts Technical Director ID - SARAH WCBC (HEMOGRAM ONLY)2023-03-15 05:18:47 [...] code = 413) HGB/HCT (H&H) - STAT [id number] 16:32:34 Test Item Value Reference Range Interpretation Comments HEMOGLOBIN (BEAKER) (test code = 11.2 GM/DL 12.0-15.0 L 410) HEMATOCRIT (BEAKER) (test code = 33.0 % 36.0-45.0 L 411) BLOOD GAS, [id number] 16:32:34 Test Item Value Reference Range Interpretation [...] (BEAKER) (test code = 1819) 30.0 CALCIUM, [id number] 16:32:33 Test Item Value Reference Range Interpretation Comments CALCIUM IONIZED (BEAKER) (test 1.14 mmol/L 1.12-1.27 code = 698) PH, BLOOD (BEAKER) (test code = 7.42 1810) GLUCOSE-STAT [id number] 16:32:14 Test Item Value Reference Range Interpretation Comments GLUCOSE RANDOM (BEAKER) (test code 142 mg/dL 70-110 H = 652) BLOOD GAS, [id number] 13:13:17 Test Item Value Reference Range Interpretation [...] (BEAKER) (test code = 1819) 28.0 CALCIUM, [id number] 13:13:16 Test Item Value Reference Range Interpretation Comments CALCIUM IONIZED (BEAKER) (test 1.28 mmol/L 1.12-1.27 H code = 698) PH, BLOOD (BEAKER) (test code = 7.43 1810) POTASSIUM-STAT [id number] 13:12:06 Test Item Value Reference Range Interpretation Comments POTASSIUM (BEAKER) (test code = 4.3 meq/L 3.6-5.5 379) HGB/HCT (H&H) - STAT [id number] 13:12:06 Test Item Value Reference Range Interpretation Comments HEMOGLOBIN (BEAKER) (test code = 12.8 GM/DL 12.0-15.0 410) HEMATOCRIT (BEAKER) (test code = 38.0 % 36.0-45.0 411) GLUCOSE-STAT [id number] 13:12:05 Test Item Value Reference Range Interpretation Comments GLUCOSE RANDOM (BEAKER) (test code 119 mg/dL 70-110 H = 652) SODIUM NA-STAT [id number] 13:12:05 Test Item Value Reference Range Interpretation Comments SODIUM (BEAKER) (test code = 381) 135 meq/L 136-145 L TISSUE [id number] 12:28:43Surgical Pathology Report Case: [id number] Authorizing Provider: Susanna Wick MD Collected: 03/03/2023 04:51 PM Ordering Location: [facility] PERIOPERATIVE Received: 03/06/2023 10:23 AM SERVICES Pathologist: Nick Banks MD Specimen: Tongue, RIGHT ANTERIOR TONSILAR PILLAR A. RIGHT ANTERIOR TONSILLAR PILLAR, BIOPSY - LYMPHOID TISSUE, NEGATIVE FOR CARCINOMA. Signing Pathologist Direct Phone Line: [phone] signed by Nick Banks MD on 03/14/2023 at 12:28 PMImmunostains for AE1/AE3 and p40 are negative.23358, 97213, 76035Vjdtik cancerA. TongueReceived fresh labeled with the patient's [...] are evaluatedImmunohistochemistry technical testing was performed at [facility], Pathology L aboratory where it [...] perform high complexity clinical laboratory testing.SODIUM NA-STAT [id number] 08:29:01 Test Item Value Reference Range Interpretation Comments SODIUM (BEAKER) (test code = 381) 134 meq/L 136-145 L CALCIUM, [id number] 08:29:00 Test Item Value Reference Range Interpretation Comments CALCIUM IONIZED (BEAKER) (test 1.10 mmol/L 1.12-1.27 L code = 698) PH, BLOOD (BEAKER) (test code = 7.45 1810) BLOOD GAS, [id number] 08:29:00 Test Item Value Reference Range Interpretation [...] (BEAKER) (test code = 1819) 54.0 POTASSIUM-STAT [id number] 08:27:11 Test Item Value Reference Range Interpretation Comments POTASSIUM (BEAKER) (test code = 4.4 meq/L 3.6-5.5 379) HGB/HCT (H&H) - STAT [id number] 08:27:11 Test Item Value Reference Range Interpretation Comments HEMOGLOBIN (BEAKER) (test code = 12.3 GM/DL 12.0-15.0 410) HEMATOCRIT (BEAKER) (test code = 36.0 % 36.0-45.0 411) GLUCOSE-STAT [id number] 08:27:10 Test Item Value Reference Range Interpretation Comments GLUCOSE RANDOM (BEAKER) (test code = 92 mg/dL 70-110 652) SARS-COV2/RT-PCR ([facility])2023-03-14 07:10:29 Test Item Value Reference Range Interpretation Comments SARS-COV2/RT-PCR Negative Negative The SARS-Co V-2 target (test code = nucleic acids a re not 0056110) detected in thi s specimen. Negative result [...] revoked sooner. Fact Sheet for Healthcare Providers: https://www.cepheid.co m/Documents/Xpert%20Xpress%20SARS%20CoV-2/Fact%20Sheets/353-9807%81STWH-QBO-1%20 HEALTHCARE%20PROVIDERS%20FACT%20SHEET.pdf Fact Sheet for Healthcare Patients: https://www.OOHLAL[employer] Mobile.Reduce Data/Documents/Xpert%20Xp ress%20SARS%20CoV-2/Fact%20Sheets/3023801%37LCMU-SPV-6%20PATIENT%20FACT%20SHEET .[id number] 03:44:35 Test Item Value Reference Range Interpretation Comments MAGNESIUM (BEAKER) (test code = 1.9 mg/dL 1.6-2.6 627) Technical Director ID Cecilia SMITH [id number] 03:44:35 Test Item Value Reference Range Interpretation Comments PHOSPHORUS (BEAKER) (test code = 5.0 mg/dL 2.3-4.7 H 604) Technical Director LARON SMITH WBASIC METABOLIC [id number] 03:44:34 Test Item Value Reference Range Interpretation [...] not appl icable for dialysis patien ts Technical Director ID - SARAH [id number] 03:35:20 Test Item Value Reference Range Interpretation [...] for patients with mechanical heart valves. SCREEN, [id number] 19:22:08 Test Item Value Reference Range Interpretation Comments TEST URINE (BEAKER) (test Negative Negative code = 583) POC-Glucose [id number] 11:56:01 Test Item Value Reference Range Interpretation Comments POC-Glucose Meter (test 95 mg/dL 70-110 : TE STED AT [facility] code = 1538) 6720 [facility], 7[address]: Technical Director/Techni federico ID = [id number] for Dewey Arora tone Lab Interpretation (test Normal code = 96244-6) [facility] [id number] 11:56:01 Test Item Value Reference Range Interpretation Comments POC-GLUCOSE METER 95 mg/dL 70-110 : TESTED A T [facility] 6720 (BEAKER) (test code = [facility], 1538) [address]: Technical Director/Techni federico ID = [id number] for Marsha Petty POCT-GLUCOSE [id number] 06:17:24 Test Item Value Reference Range Interpretation Comments POC-GLUCOSE METER 160 mg/dL 70-110 H : TESTED A T [facility] 6720 (BEAKER) (test code = [facility], 1538) 72668: Technical Director/Techni federico ID = [id number] for HANG ALMAZAN [id number] 04:44:38 Test Item Value Reference Range Interpretation Comments MAGNESIUM (BEAKER) (test code = 1.9 mg/dL 1.6-2.6 627) Technical Director ID - [id number] 04:44:38 Test Item Value Reference Range Interpretation Comments PHOSPHORUS (BEAKER) (test code = 5.3 mg/dL 2.3-4.7 H 604) Technical Director ID - EOOBASIC METABOLIC [id number] 04:44:37 Test Item Value Reference Range Interpretation [...] not appl icable for dialysis patien ts Technical Director ID - EOOPOCT-GLUCOSE [id number] 00:21:01 Test Item Value Reference Range Interpretation Comments POC-GLUCOSE METER 108 mg/dL 70-110 : TESTED A T [facility] 6720 (BEAKER) (test code = [facility] [place], 1538) [address]: Technical Director/Techni federico ID = [id number] for GONZALEZTAMIKOHANG POCT-GLUCOSE [id number] 16:05:36 Test Item Value Reference Range Interpretation Comments POC-GLUCOSE METER 120 mg/dL 70-110 H : TESTED A T [facility] 6720 (BEAKER) (test code = [facility], 1538) 42811: Technical Director/Techni federico ID = [id number] for Sonali Walters POCT-GLUCOSE [id number] 12:33:49 Test Item Value Reference Range Interpretation Comments POC-GLUCOSE METER 87 mg/dL 70-110 : TESTED A T [facility] 6720 (BEAKER) (test code = [facility], 1538) 19967: Technical Director/Techni federico ID = [id number] for Sonali Harrison POCT-GLUCOSE [id number] 06:25:50 Test Item Value Reference Range Interpretation Comments POC-GLUCOSE METER 108 mg/dL 70-110 : TESTED A T [facility] 6720 (BEAKER) (test code = [facility] [facility] 10398: Technical Director/Techni federico ID = [id number] for HANG ALMAZAN [id number] 04:51:06 Test Item Value Reference Range Interpretation Comments MAGNESIUM (BEAKER) (test code = 1.6 mg/dL 1.6-2.6 627) Technical Director ID - MAXWELL [id number] 04:51:06 Test Item Value Reference Range Interpretation Comments PHOSPHORUS (BEAKER) (test code = 4.4 mg/dL 2.3-4.7 604) Technical Director ID - MAXWELL BBASIC METABOLIC [id number] 04:51:05 Test Item Value Reference Range Interpretation [...] mg/dL 8.4-10.2 (test code = 697) EGFR ([facility]) 114 Interpretatio n of eGFR (test code [...] not appl icable for dialysis patien ts Technical Director ID - MAXWELL BPOCT-GLUCOSE [id number] 00:05:50 Test Item Value Reference Range Interpretation Comments POC-GLUCOSE METER 118 mg/dL 70-110 H : TESTED A T [facility] 6720 (Outline) (test code = [facility], [facility]8) 39405: Technical Director/Techni federico ID = [id number] for SE MIEN, HANG POCT-GLUCOSE [id number] 16:40:48 Test Item Value Reference Range Interpretation Comments POC-GLUCOSE METER 99 mg/dL 70-110 : TESTED A T [facility] 6720 (Outline) (test code = [facility], 1538) 87062: Technical Director/Techni federico ID = [id number] for Dheeraj Rosaline tovar POCT-GLUCOSE [id number] 12:40:11 Test Item Value Reference Range Interpretation Comments POC-GLUCOSE METER 122 mg/dL 70-110 H : TESTED A T [facility] 6720 (BEAKER) (test code = [facility], 1538) 93089: Technical Director/Techni federico ID = [id number] for Sonali Walters POCT-GLUCOSE [id number] 06:26:58 Test Item Value Reference Range Interpretation Comments POC-GLUCOSE METER 93 mg/dL 70-110 : TESTED A T [facility] 6720 (Outline) (test code = [facility], 1538) 53758: Technical Director/Techni federioc ID = [id number] for SEMI EN, HANG [id number] 04:39:11 Test Item Value Reference Range Interpretation Comments MAGNESIUM (BEAKER) (test code = 1.7 mg/dL 1.6-2.6 627) Technical Director ID - [id number] 04:39:11 Test Item Value Reference Range Interpretation Comments PHOSPHORUS (BEAKER) (test code = 4.6 mg/dL 2.3-4.7 604) Technical Director ID - MARCOBASIC METABOLIC [id number] 04:39:10 Test Item Value Reference Range Interpretation [...] not appl icable for dialysis patien ts Technical Director ID - ROBERTOOBASIC METABOLIC [id number] 06:51:27 Test Item Value Reference Range Interpretation [...] not appl icable for dialysis patien ts Technical Director ID - [id number] 06:51:27 Test Item Value Reference Range Interpretation Comments MAGNESIUM (BEAKER) (test code = 1.6 mg/dL 1.6-2.6 627) Technical Director ID - AAMFMUIXEEPHGTT7581-77-82 06:51:27 Test Item Value Reference Range Interpretation Comments PHOSPHORUS (BEAKER) (test code = 5.1 mg/dL 2.3-4.7 H 604) Technical Director ID - MARCOPOC-Glucose uvppe4059-02-14 06:10:39 Test Item Value Reference Range Interpretation Comments POC-Glucose Meter (test 117 mg/dL 70-110 H : TE STED AT [facility] code = 1538) 6720 [facility] [place], 770 30: Technical Director/Techni federico ID = [id number] for DARCI MONTEMAYOR A Lab Interpretation (test Abnormal code = 14672-1) [facility] [id number] 06:10:39 Test Item Value Reference Range Interpretation Comments POC-GLUCOSE METER 117 mg/dL 70-110 H : TESTED A T [facility] 6720 (BEAKER) (test code = [facility], 153) 43258: Technical Director/Techni federico ID = [id number] for PEE GRUBER BELKIS POCT-GLUCOSE [id number] 00:21:24 Test Item Value Reference Range Interpretation Comments POC-GLUCOSE METER 133 mg/dL 70-110 H : TESTED A T [facility] 6720 (BEAKER) (test code = [facility], 153) 88693: Technical Director/Techni federico ID = [id number] for PEE OMPTERI, BELKIS POCT-GLUCOSE [id number] 18:01:01 Test Item Value Reference Range Interpretation Comments POC-GLUCOSE METER 131 mg/dL 70-110 H : TESTED A T [facility] 6720 (BEAKER) (test code = [facility], 1537) 06684: Technical Director/Techni federico ID = [id number] for Sa nchez, Yamilith POC-Glucose [id number] 11:46:52 Test Item Value Reference Range Interpretation Comments POC-Glucose Meter (test 86 mg/dL 70-110 : TE STED AT [facility] code = 1538) 6720 [facility], 770 30: Technical Director/Techni federico ID = [id number] for Micha Gagnon Lab Interpretation (test Normal code = 51445-1) [facility] [id number] 11:46:52 Test Item Value Reference Range Interpretation Comments POC-GLUCOSE METER 86 mg/dL 70-110 : TESTED A T [facility] 6720 (BEAKER) (test code = [facility], 153) 58685: Technical Director/Techni federico ID = [id number] for Sanc hez, Yamilith POCT-GLUCOSE [id number] 06:32:46 Test Item Value Reference Range Interpretation Comments POC-GLUCOSE METER 110 mg/dL 70-110 : TESTED A T [facility] 6720 (BEAKER) (test code = [facility], 153) 95096: Technical Director/Techni federico ID = [id number] for HANG ALMAZAN BASIC METABOLIC [id number] 05:38:35 Test Item Value Reference Range Interpretation [...] not appl icable for dialysis patien ts Technical Director ID - [id number] 05:38:35 Test Item Value Reference Range Interpretation Comments MAGNESIUM (BEAKER) (test code = 1.8 mg/dL 1.6-2.6 627) Technical Director ID - [id number] 05:38:35 Test Item Value Reference Range Interpretation Comments PHOSPHORUS (BEAKER) (test code = 3.4 mg/dL 2.3-4.7 604) Technical Director ID - DBCBC W/PLT COUNT & AUTO [id number] 05:14:51 Test Item Value Reference Range Interpretation [...] PERCENT (BEAKER) (test code = 2801) POCT-GLUCOSE [id number] 23:49:04 Test Item Value Reference Range Interpretation Comments POC-GLUCOSE METER 97 mg/dL 70-110 : TESTED A T [facility] 6720 (BEAKER) (test code = [facility], 1538) 27227: Technical Director/Techni federico ID = [id number] for HANG ZUNIGA POCT-GLUCOSE [id number] 18:03:27 Test Item Value Reference Range Interpretation Comments POC-GLUCOSE METER 96 mg/dL 70-110 : TESTED A T [facility] 6720 (BEAKER) (test code = [facility] William [facility], 1538) 89774: Technical Director/Techni federico ID = [id number] for JENNI PSON, BELKIS POCT-GLUCOSE [id number] 12:11:29 Test Item Value Reference Range Interpretation Comments POC-GLUCOSE METER 95 mg/dL 70-110 : TESTED A T [facility] 6720 (BEAKER) (test code = [facility], 1538) 15324: Technical Director/Techni federico ID = [id number] for JENNI PSON, BELKIS POCT , [id number] 07:31:00 Test Item Value Reference Range Interpretation Comments Test Urine, POC (test Negative code = 5757936) Control line present?, POC (test Yes code = 0500644) Background clear?, POC (test code Yes = 8773617) UPT Cassette Lot #, POC (test code 862767 = 3588565) UPT Cassette Expiration Date, POC 03/19/2024 (test code = 8300198) [facility] , [id number] 07:31:00 Test Item Value Reference Range Interpretation Comments Test Urine, POC (test Negative code = 3733123) Control line present?, POC (test Yes code = 4734638) Background clear?, POC (test code Yes = 8896910) UPT Cassette Lot #, POC (test code 453873 = 6731651) UPT Cassette Expiration Date, POC 03/19/2024 (test code = 2464937) [facility] , [id number] 07:31:00 Test Item Value Reference Range Interpretation Comments Test Urine, POC (test Negative code = 9884661) Control line present?, POC (test Yes code = 3524603) Background clear?, POC (test code Yes = 0669625) UPT Cassette Lot #, POC (test code 187278 = 9164270) UPT Cassette Expiration Date, POC 03/19/2024 (test code = 4151395) [facility] , [id number] 07:31:00 Test Item Value Reference Range Interpretation Comments Test Urine, POC (test Negative code = 0168132) Control line present?, POC (test Yes code = 7875467) Background clear?, POC (test code Yes = 7327116) UPT Cassette Lot #, POC (test code 307495 = 6615850) UPT Cassette Expiration Date, POC 03/19/2024 (test code = 1950537) [facility]-Glucose [id number] 06:42:59 Test Item Value Reference Range Interpretation Comments POC-Glucose Meter (test 95 mg/dL 70-110 : TE STED AT [facility] code = 1538) 6720 [facility], 770 30: Technical Director/Techni federico ID = [id number] for Shayy Olivarez Lab Interpretation (test Normal code = 89773-8) [facility]-GLUCOSE [id number] 06:42:59 Test Item Value Reference Range Interpretation Comments POC-GLUCOSE METER 95 mg/dL 70-110 : TESTED A T [facility] 6720 (BEAKER) (test code = [facility], 1538) 83669: Technical Director/Techni federico ID = [id number] for Shayy Costello od [id number] 04:49:08 Test Item Value Reference Range Interpretation Comments PHOSPHORUS (BEAKER) (test code = 4.0 mg/dL 2.3-4.7 604) Technical Director ID - ADMINBASIC METABOLIC [id number] 04:49:07 Test Item Value Reference Range Interpretation [...] not appl icable for dialysis patien ts Technical Director ID - [id number] 04:49:07 Test Item Value Reference Range Interpretation Comments MAGNESIUM (BEAKER) (test code = 1.9 mg/dL 1.6-2.6 627) Technical Director ID - ADMINCBC W/PLT COUNT & AUTO [id number] 04:23:38 Test Item Value Reference Range Interpretation [...] PERCENT (BEAKER) (test code = 2801) POCT-GLUCOSE [id number] 23:51:35 Test Item Value Reference Range Interpretation Comments POC-GLUCOSE METER 115 mg/dL 70-110 H : TESTED A T [facility] 6720 (BEAKER) (test code = [facility], 153) 48463: Technical Director/Techni federico ID = [id number] for Kathleen acuña Shayy POCT-GLUCOSE [id number] 18:02:27 Test Item Value Reference Range Interpretation Comments POC-GLUCOSE METER 97 mg/dL 70-110 : TESTED A T [facility] 6720 (BEAKER) (test code = [facility], 153) 42464: Technical Director/Techni federico ID = [id number] for BELKIS SAMPSON POCT-GLUCOSE [id number] 12:21:50 Test Item Value Reference Range Interpretation Comments POC-GLUCOSE METER 82 mg/dL 70-110 : TESTED A T [facility] 6720 (BEAKER) (test code = [facility], 1538) 83939: Technical Director/Techni federico ID = [id number] for BELKIS SAMPSON POCT-GLUCOSE [id number] 06:39:31 Test Item Value Reference Range Interpretation Comments POC-GLUCOSE METER 82 mg/dL 70-110 : TESTED A T [facility] 6720 (BEAKER) (test code = [facility] Thomas [facility], 1538) 98069: Technical Director/Techni federico ID = [id number] for Shayy Costello od [id number] 05:41:53 Test Item Value Reference Range Interpretation Comments MAGNESIUM (BEAKER) (test code = 1.9 mg/dL 1.6-2.6 627) Technical Director ID - [id number] 05:41:53 Test Item Value Reference Range Interpretation Comments PHOSPHORUS (BEAKER) (test code = 4.3 mg/dL 2.3-4.7 604) Technical Director ID - ADMINBASIC METABOLIC [id number] 05:41:52 Test Item Value Reference Range Interpretation [...] not appl icable for dialysis patien ts Technical Director ID - ADMINCBC W/PLT COUNT & AUTO [id number] 05:18:36 Test Item Value Reference Range Interpretation [...] PERCENT (BEAKER) (test code = 2801) POCT-GLUCOSE [id number] 00:09:35 Test Item Value Reference Range Interpretation Comments POC-GLUCOSE METER 160 mg/dL 70-110 H : TESTED A T [facility] 6720 (BEAKER) (test code = [facility] [place], 1538) 94328: Technical Director/Techni federico ID = [id number] for Shayy Bahena POCT-GLUCOSE [id number] 17:21:07 Test Item Value Reference Range Interpretation Comments POC-GLUCOSE METER 75 mg/dL 70-110 : TESTED A T [facility] 6720 (BEAKER) (test code = [facility], 1538) 86914: Technical Director/Techni federico ID = [id number] for Sonali Harrison Screen, [id number] 15:22:58 Test Item Value Reference Range Interpretation Comments Preg Test, Ur (test code = 2112-1) Negative Negative Lab Interpretation (test code = Normal 41629-3) [facility], [id number] 15:22:58 Test Item Value Reference Range Interpretation Comments Preg Test, Ur (test code = 2112-1) Negative Negative Lab Interpretation (test code = Normal 85813-3) [facility], [id number] 15:22:58 Test Item Value Reference Range Interpretation Comments Preg Test, Ur (test code = 2112-1) Negative Negative Lab Interpretation (test code = Normal 85780-4) [facility], [id number] 15:22:58 Test Item Value Reference Range Interpretation Comments Preg Test, Ur (test code = 2112-1) Negative Negative Lab Interpretation (test code = Normal 14290-8) [facility] CenterPREGNANCY SCREEN, [id number] 15:22:58 Test Item Value Reference Range Interpretation Comments TEST URINE (BEAKER) (test Negative Negative code = 583) POCT-GLUCOSE [id number] 17:25:51 Test Item Value Reference Range Interpretation Comments POC-GLUCOSE METER 87 mg/dL 70-110 : TESTED A T [facility] 6720 (BEAKER) (test code = [facility] William [facility], 1538) 53144: Technical Director/Techni federico ID = [id number] for MARK CEBALLOS POCT-GLUCOSE [id number] 12:49:55 Test Item Value Reference Range Interpretation Comments POC-GLUCOSE METER 93 mg/dL 70-110 : TESTED A T [facility] 6720 (BEAKER) (test code = [facility], 1538) 97129: Technical Director/Techni federico ID = [id number] for MARK CEBALLOS COMPREHENSIVE METABOLIC [id number] 05:47:37 Test Item Value Reference Range Interpretation [...] not appl icable for dialysis patien ts Technical Director ID - [id number] 05:41:52 Test Item Value Reference Range Interpretation Comments PREALBUMIN (BEAKER) (test code = 26 mg/dL 586) Technical Director ID - [id number] 05:34:03 Test Item Value Reference Range Interpretation Comments PARTIAL THROMBOPLASTIN TIME 35.5 seconds 22.5-36.0 (BEAKER) (test code = 760) PROTHROMBIN TIME/[id number] 05:33:23 Test Item Value Reference Range Interpretation Comments PROTIME (BEAKER) (test code = 13.1 seconds 11.9-14.2 759) INR (BEAKER) (test code = 370) 1.05 <=5.90 RECOMMENDED COUMADIN/WARFARIN INR THERAPY RANGESSTANDARD DOSE: 2.0 - 3.0 Includes: PROPHYLAXIS for venous thrombosis, systemic embolization; TREATMENT for venous thrombosis and/or pulmonary embolus.HIGH RISK: Target INR is 2.5-3.5 for patients with mechanical heart valves.CBC W/PLT COUNT & AUTO [id number] 05:25:30 Test Item Value Reference Range Interpretation [...] code = 2801) HIV-1 ANTIGEN WITH HIV-1/2 [id number] 13:53:09 Test Item Value Reference Range Interpretation Comments HIV-1 ANTIGEN WITH HIV 1\\T\\2 Nonreactive Nonreactive ANTIBODY (2) (BEAKER) (test code = 2586) Technical Director ID - ADMINHEPATITIS C [id number] 13:53:08 Test Item Value Reference Range Interpretation Comments HEPATITIS C ANTIBODY (BEAKER) Nonreactive Nonreactive (test code = 367) Technical Director ID - [id number] 13:38:31 Test Item Value Reference Range Interpretation Comments PREALBUMIN (BEAKER) (test code = 30 mg/dL 0491 298) Technical Director ID - ADMINXR ABDOMEN/KUB 1 VIEW [id number] 19:34:44 [facility] 1980 Sex: FTECHNIQUE: XR ABDOMEN/KUB 1 VIEW PORTABLEINDICATION: DHT PLacement.COMPARISON: None.FINDINGS:Feeding tube tip projected over the gastric antrum. Nonobstructive bowelgas pattern. Lower pelvis is incompletely included on this examination.Supine radiographs are insensitive for detection of free intraperito nealair.IMPRESSION:Feeding tube tip projected over the gastric antrum.Electronically Signed By: Jarvis Welsh03/03/2023 19:36 CDTWorkstation Name: [id number] CHEST WITH IV [id number] 17:28:20 [facility]ENTER[facility]: [facility] [facility] : 1980 Sex: FCT [...] Signed By: Jude Calero02/25/2023 17:30 CDTWorkstation Name: [id number] NECK SOFT TISSUE WITH IV [id number] 14:07:41 [facility] [place]LO : 1980 Sex: FExamination:CT [...] Signed By: Natacha Mondragon02/23/2023 14:09 CDTWorkstation Name: [id number], CHEST, WITH [id number] 07:29:00 Unlisted Reason for Exam - Click Yes and Enter Reason Below->No [facility] P[place]LO : 1980 Sex: FFINAL REPORT TECHNIQUE: CT [...] Nicholas MDReport Verified Da te/Time: 01/20/2023 07:29:13 [id number] 05:13:48 Test Item Value Reference Range Interpretation Comments MAGNESIUM (BEAKER) (test code = 1.7 mg/dL 1.6-2.6 627) Technical Director ID - [id number] 05:13:48 Test Item Value Reference Range Interpretation Comments PHOSPHORUS (BEAKER) (test code = 4.1 mg/dL 2.3-4.7 604) Technical Director ID - MMBASIC METABOLIC [id number] 05:13:47 Test Item Value Reference Range Interpretation [...] not appl icable for dialysis patien ts Technical Director ID - MMBASIC METABOLIC [id number] 06:42:56 Test Item Value Reference Range Interpretation [...] not appl icable for dialysis patien ts Technical Director ID - [id number] 06:42:56 Test Item Value Reference Range Interpretation Comments MAGNESIUM (BEAKER) (test code = 1.8 mg/dL 1.6-2.6 627) Technical Director ID - [id number] 06:42:56 Test Item Value Reference Range Interpretation Comments PHOSPHORUS (BEAKER) (test code = 4.0 mg/dL 2.3-4.7 604) Technical Director ID - ADMINVITAMIN [id number] 06:39:31 Test Item Value Reference Range Interpretation Comments VITAMIN B12 (BEAKER) (test code = 341 pg/mL 213-816 774) Technical Director ID - ADMINIRON, TIBC, % SAT. (WITHOUT FERRITIN)2023-01-19 06:11:34 Test Item Value Reference Range Interpretation Comments IRON (BEAKER) (test code = 547) 22.0 ug/dL 40.0-160.0 L TOTAL IRON BINDING CAPACITY 394 ug/dL 250-450 (BEAKER) (test code = 769) IRON % SATURATION (2) (BEAKER) 6 % 20-55 L (test code = 2590) Technical Director ID - [id number] 06:40:41 Test Item Value Reference Range Interpretation Comments MAGNESIUM (BEAKER) 1.5 mg/dL 1.6-2.6 L Specimen slightly (test code = 627) hemolyzed Technical Director ID - SARAH [id number] 06:40:41 Test Item Value Reference Range Interpretation Comments PHOSPHORUS (BEAKER) 3.6 mg/dL 2.3-4.7 Specimen slightly (test code = 604) hemolyzed Technical Director ID - SARAH WCOMPREHENSIVE METABOLIC [id number] 06:40:41 Test Item Value Reference Range Interpretation [...] not appl icable for dialysis patien ts Technical Director ID - SARAH WCBC W/PLT COUNT & AUTO [id number] 05:43:39 Test Item Value Reference Range Interpretation [...] PERCENT (BEAKER) (test code = 2801) Ethanol [id number] 02:25:00 Test Item Value Reference Range Interpretation Comments Ethanol (test code 176 mg/dL The pharm acological = ETOH) response to blo od alcohol levels mayvary from individual to i ndividual. The fatal ginna ntrationhas been reported t o be >400mg/dL. Complete Blood Count Auto [id number] 22:56:00 Test Item Value Reference Range Interpretation [...] code = NRBCP) 0 % Comprehensive Metabolic [id number] 22:56:00 Test Item Value Reference Range Interpretation [...] 106 U/L 46-116 N = ALP) Ethanol [id number] 22:56:00 Test Item Value Reference Range Interpretation Comments Ethanol (test code 242 mg/dL The pharm acological = ETOH) response to blo od alcohol levels mayvary from individual to i ndividual. The fatal ginna ntrationhas been reported t o be >400mg/dL. Manual Differential, [id number] 22:56:00 Test Item Value Reference Range Interpretation [...] les (Age >41) 1. 8-10.1 mIU/mL Drug Screen,[id number] 22:52:00 Test Item Value Reference Range Interpretation [...] Negative code = UPROP) Coronavirus PCR, COVID19 [id number] 22:52:00 Test Item Value Reference Range Interpretation Comments Coronavirus PCR, For use under Emergency COVID19 Rapid (test Use Authorization (EUA) code = SARSCOV2) only. Coronavirus PCR, Reference Range: COVID19 Rapid (test Negative code = RHQJMPB91.1) SARS-CoV-2 PCR Result: Negative by RT-PCR (test code = SARS-CoV-2 PCR Result:) COVID-19 Status: AsymptomaticUA, Urinalysis Rflx Cult/[id number] 22:52:00 Test Item Value Reference Range Interpretation Comments Color,Urine (test code = UCOL) Yellow Yellow Clarity,Urine (test code = Clear Clear UCLAR) Ph, Urine (test code = UPH) 6.0 5.0-9.0 N Specific [place],Urine (test 1.020 1.005-1.030 N code = USG) [...] A code = ULEU) UF REFLEXUF REFLEXUrine [id number] 22:52:00 Test Item Value Reference Range Interpretation Comments RBC,Urine (test code = URBCUF) 0-2 /HPF 0-2 WBC,Urine (test code = UWBCUF) 0-5 /HPF 0-5 Epithelial Cell,Urine (test 0-5 /HPF 0-5 code = UECUF) Casts,Urine (test code = 0-5 /LPF None Seen UCASTUF) Bacteria,Urine (test code = None Seen /hpf None Seen UBACTUF) UF REFLEXUF REFLEX
[2023-06-27] MEDS ORDERED: KETOROLAC 30 MG/ML INJ ONE (17:29)
--- NOTE | 2023-06-27 17:59 | RAD REPORT ---
EXAM DESCRIPTION: RAD - Knee Right 3 View - 06/27/2023 4:36 pm CLINICAL HISTORY: PAIN COMPARISON: Wrist Right 3 View dated 06/27/2023 TECHNIQUE: Right knee, 3 views. FINDINGS: No fracture, dislocation or periosteal reaction.No joint effusion seen. No joint space sheree rowing. No soft tissue abnormality. IMPRESSION: Negative right knee.
--- NOTE | 2023-06-27 18:00 | RAD REPORT ---
EXAM DESCRIPTION: RAD - Wrist Right 3 View - 06/27/2023 4:36 pm CLINICAL HISTORY: DEFORMITY COMPARISON: No comparisons TECHNIQUE: Right wrist, 3 views. FINDINGS: Impacted and slightly volar apex angulated distal radius fracture displaced fracture at th e base of the ulnar styloid process. There is no dislocation or periosteal reaction noted. No foreign body. Soft tissue swelling about the wrist. IMPRESSION: Fractures of the distal radius and ulnar styloid as above.
--- NOTE | 2023-06-27 18:12 | EDPHYS ---
Physician Documentation [facility] Name: Brii Garcia Age: 43 yrs Sex: Female : 1980 Arrival Date: 06/27/2023 Time: 15:12 Bed Treatment Private MD: ED Physician Mitul Marmolejo HPI: 06/27 15:59 This 43 yrs old Black Female presents to ER via EMS with complaints of Fall Injury. ec2 15:59 Patient arrives today for evaluation after a fall. States she was walking on the stairs ec2 subsequently tripped and fell down. States that she is having right knee pain and right wrist pain. Patient reports no head pain, no neck pain, no loss of consciousness.. Historical: - Allergies: 15:52 hydrocodone; cm10 - PMHx: 15:52 Anxiety; Squamous cell carcinoma of tongue; cm10 - PSHx: 15:52 Carcinoma removed; G tube placement; right leg; total tongue removal; tracheostomy; cm10 - Immunization history:: Adult Immunizations up to date. - Social history:: Smoking status: Patient denies any tobacco usage or history of. ROS: 15:59 Constitutional: as per hpi ec2 Exam: 15:59 Constitutional: GEN: No acute distress HEENT: -Head: atraumatic -Eyes: EOMI CV: ec2 regular rate LUNGS: no respiratory distress ABD: non-tender, feeding tube in place SKIN: no wounds appreciated MSK: No C/T/L spine deformities RUE with tenderness palpation to the wrist LUE w/o trauma RLE with tenderness palpation to the knee, good range of motion LLE w/o trauma NEURO: moves all extremities equally, GCS 15 (E4, V5, M6) Vital Signs: 15:51 BP 91 / 71; Pulse 91; Resp 16; Temp 98.4; Pulse Ox 100% on R/A; Weight 55.79 kg; Pain cm10 8/10; 15:51 Pain Scale: Adult cm10 MDM: 15:54 Patient medically screened. ec2 15:59 ED course: Patient arrives today due to concern for bony injuries after a fall. ec2 Examination remarkable for MSK findings as noted above. Will obtain radiographs of the wrist and the knee and give the patient Toradol for pain. Currently considered muscle and bone contusions, bony fracture. Low suspicion for other process causing the patient's fall given lack of prodrome, accordingly will defer lab work or EKG. I also considered arrhythmia, anemia, dehydration. . 18:05 ED course: Wrist x-ray independently reviewed and interpreted by me, shows impacted ec2 distal radial fracture along with ulnar styloid fracture. We will place the patient in a sugar-tong splint and have her follow-up with orthopedic surgery.. 18:20 Data reviewed: vital signs. ec2 06/27 15:57 Order name: Wrist Right 3 View XRAY; Complete Time: 18:04 cm10 06/27 15:59 Order name: Knee Right 3 View XRAY; Complete Time: 18:04 ec2 06/27 18:16 Order name: Splint - Sugar Tong - Forearm; Complete Time: 18:31 eh3 Administered Medications: 17:18 Drug: Ketorolac IVP 15 mg IVP once Route: IVP; Site: right antecubital; eh3 18:16 Follow up: Response: No adverse reaction eh3 Disposition Summary: 06/27/23 18:12 Discharge Ordered Notes: Location: Home ec2 Condition: Stable ec2 Diagnosis - Distal Radius Fracture ec2 - Ulnar Styloid Fracture ec2 Followup: ec2 - With: Kumar Nino MD - When: - Reason: Recheck today's complaints Discharge Instructions: - Discharge Summary Sheet ec2 - Wrist Fracture Treated With Immobilization, [id number]-[id number] ec2 Forms: - Medication Reconciliation Form ec2 - Thank You Letter ec2 - Antibiotic Education ec2 - Prescription Opioid Use ec2 - Patient Portal Instructions ec2 - Leadership Thank You Letter ec2 Prescriptions: - acetaminophen-codeine 300-15 mg Oral tablet - take 1 tablet ORAL route every 6 hours; 15 tablet; Refills: 0, Product ec2 Selection Permitted Signatures: Dispatcher [employer] EDMS Emily Jennings RN RN 3 Marissa Ball RN RN 10 Mitul Marmolejo MD MD ec2 Corrections: (The following items were deleted from the chart) 15:53 15:52 Allergies: No Known Allergies; cm10 cm10 16:38 16:00 Knee Right 3 View+RAD.RAD.BRZ ordered. EDMS EDMS
--- NOTE | 2023-06-27 18:12 | ER ---
Nurse's Notes [facility] Name: Brii Garcia Age: 43 yrs Sex: Female : 1980 Arrival Date: 06/27/2023 Time: 15:12 Bed Treatment Private MD: Diagnosis: Distal Radius Fracture;Ulnar Styloid Fracture Presentation: 06/27 15:26 Chief complaint: EMS states: fell down last four stairs at apartments where she lives, eh3 pt states she hit her left wrist on ground and head on rail, denies LOC, c/o pain in left wrist. Also states she hit her feeding tube. EMS reports normal VS, A\T\O x 4, on arrival. 15:26 Method Of Arrival: EMS: [facility] 15:51 Coronavirus screen: Vaccine status: Patient reports receiving the 2nd dose of the covid cm10 vaccine. Client denies travel out of the [place] in the last 14 days. Ebola Screen: Patient denies travel to an Ebola-affected area in the 21 days before illness onset. No symptoms or risks identified at this time. Initial Sepsis Screen: Does the patient meet any 2 criteria? No. Patient's initial sepsis screen is negative. Does the patient have a suspected source of infection? No. Patient's initial sepsis screen is negative. Risk Assessment: Do you want to hurt yourself or someone else? Patient reports no desire to harm self or others. Onset of symptoms was June 27, 2023. Care prior to arrival: IV initiated. 20 GA, in the right forearm. 15:51 Acuity: ANG 3 cm10 Historical: - Allergies: 15:52 hydrocodone; cm10 - PMHx: 15:52 Anxiety; Squamous cell carcinoma of tongue; cm10 - PSHx: 15:52 Carcinoma removed; G tube placement; right leg; total tongue removal; tracheostomy; cm10 - Immunization history:: Adult Immunizations up to date. - Social history:: Smoking status: Patient denies any tobacco usage or history of. Screenin:00 [facility] ED Fall Risk Assessment (Adult) Score/Fall Risk Level 0 - 2 = Low Risk. Abuse eh3 screen: Denies threats or abuse. Denies injuries from another. Nutritional screening: No deficits noted. Tuberculosis screening: No symptoms or risk factors identified. Assessment: 17:00 General: Appears in no apparent distress. uncomfortable, Behavior is calm, cooperative, eh3 appropriate for age. Pain: Complains of pain in right wrist. Neuro: Level of Consciousness is awake, alert, obeys commands, Oriented to person, place, time, situation. Cardiovascular: Capillary refill < 3 seconds Patient's skin is warm and dry. Respiratory: Airway is patent Respiratory effort is even, unlabored, Respiratory pattern is regular, symmetrical. Derm: Skin is pink, warm \T\ dry. Musculoskeletal: Circulation, motion, and sensation intact. Swelling present in right wrist. 18:45 Reassessment: Pt was discharged, left hospital, then came back because trach came out; eh3 RT paged to assist. Vital Signs: 15:51 BP 91 / 71; Pulse 91; Resp 16; Temp 98.4; Pulse Ox 100% on R/A; Weight 55.79 kg; Pain cm10 8/10; 15:51 Pain Scale: Adult cm10 ED Course: 15:18 Patient arrived in ED. rg4 15:52 Triage completed. cm10 15:53 Arm band placed on Patient placed in waiting room. cm10 15:54 Mitul Marmolejo MD is Attending Physician. ec2 16:34 Emily Jennings, RN is Primary Nurse. eh3 16:38 Wrist Right 3 View XRAY In Process Unspecified. EDMS 16:38 Knee Right 3 View XRAY In Process Unspecified. EDMS 17:00 Patient has correct armband on for positive identification. Bed in low position. Call eh3 light in reach. Side rails up X2. Provided Education on: Use of call [place]. 18:14 Kumar Nino MD is Referral Physician. ec2 18:15 IV discontinued, intact, bleeding controlled, No redness/swelling at site. Orthoglass eh3 splint: Sugar tong splint applied on right arm. Sling applied to right arm. 18:33 No provider procedures requiring assistance completed. eh3 18:45 Primary Nurse role handed off by Emily Jennings, RN eh3 18:45 Emily Jennings, ANNE-MARIE is Primary Nurse. eh3 Administered Medications: 17:18 Drug: Ketorolac IVP 15 mg IVP once Route: IVP; Site: right antecubital; eh3 18:16 Follow up: Response: No adverse reaction eh3 Medication: 18:33 VIS not applicable for this client. eh3 Outcome: 18:12 Discharge ordered by . ec2 18:33 Discharged to home ambulatory, eh3 18:33 Condition: stable 18:33 Discharge instructions given to patient, Instructed on discharge instructions, follow up and referral plans. medication usage, Demonstrated understanding of instructions, follow-up care, medications, splint care, Prescriptions given X 1, 18:34 Patient left the ED. eh3 19:14 Patient left the ED. mb9 Signatures: Dispatcher [employer] Christine Birmingham rg4 Emily Jennings RN RN 3 Josephine Fraga RN RN mb9 Marissa Ball RN RN cm10 Mitul Marmolejo MD MD ec2 Corrections: (The following items were deleted from the chart) 15:53 15:52 Allergies: No Known Allergies; cm10 cm10 18:47 18:45 Reassessment: Pt was discharged, left hospital, then came back because trach came eh3 out eh3
== END 2023-06-27 19:14 | disposition home or self-care (01) ==
LOC: ER 15:12
PROC: 2W3CX1Z Immobilization of Right Lower Arm using Splint (ICD-10-PCS; principal; 2023-06-27)
DX: S52.501A Unspecified fracture of the lower end of right radius, initial encounter for closed fracture (principal); S52.611A Displaced fracture of right ulna styloid process, initial encounter for closed fracture; W18.30XA Fall on same level, unspecified, initial encounter; M25.561 Pain in right knee; Z88.5 Allergy status to narcotic agent

== ENCOUNTER → 2023-09-13 | Emergency (ER) | payer OTHER ==
--- NOTE | 2023-09-13 17:28 | RAD REPORT ---
EXAM DESCRIPTION: Celso Blount (2 Views)09/13/2023 5:12 pm CLINICAL HISTORY: Cough COMPARISON: September 06, 2023 FINDINGS: The lungs appear clear of acute infiltrate. The heart is normal size Tracheostomy tube in place IMPRESSION: No acute abnormalities displayed
--- NOTE | 2023-09-13 17:41 | EDPHYS ---
Physician Documentation [facility] Name: Brii Garcia Age: 43 yrs Sex: Female : 1980 Arrival Date: 09/13/2023 Time: 16:24 Bed IW1 Private MD: ED Physician Raul Parkinson HPI: 09/13 16:53 This 43 yrs old Black Female presents to ER via EMS with complaints of Shortness Of rn Breath, Back Pain, Chest Pain. 16:53 The patient has shortness of breath at rest. Onset: The symptoms/episode began/occurred rn 1 week(s) ago. Duration: The symptoms are intermittent. The patient's shortness of breath is aggravated by coughing. Severity of symptoms: At their worst the symptoms were mild. The patient has experienced similar episodes in the past. Patient reports feels sick for a little more than a week, seen here 1 week ago and diagnosed with upper respiratory infection. Patient reports cough is worse and now having chest tightness and radiates to the back. Is also in the middle of being evicted due to not being around and feeling anxiousness. Patient with history of tongue cancer with tracheostomy and feeding tube. Patient has recently started to attempt feeds by mouth and has a bag of [employer] chicken with her.. Historical: - Allergies: 16:35 HYDROCODONE; db - PMHx: 16:35 Anxiety; Squamous cell carcinoma of tongue; db - PSHx: 16:35 Carcinoma removed; G tube placement; right leg; total tongue removal; tracheostomy; db - Immunization history:: Adult Immunizations unknown. - Family history:: not pertinent. - Social history:: Smoking status: unknown. - Hospitalizations: : No recent hospitalization is reported. ROS: 16:53 Constitutional: Negative for fever, chills, and weight loss, Cardiovascular: Positive rn for chest pain Respiratory: Positive for cough and shortness of breath Abdomen/GI: Negative for abdominal pain, nausea, vomiting, diarrhea, and constipation, MS/Extremity: Negative for injury and deformity, Neuro: Negative for headache, weakness, numbness, tingling, and seizure, Exam: 16:53 Constitutional: This is a well developed, well nourished patient who is awake, alert, rn and in no acute distress. ENT: No stridor Cardiovascular: Regular rate and rhythm. No pulse deficits. Respiratory: No increased work of breathing, no retractions or nasal flaring. Neuro: Awake and alert, GCS 15 17:33 ECG was reviewed by the Attending Physician. rn Vital Signs: 16:32 BP 117 / 72; Pulse 77; Resp 18; Pulse Ox 99% on R/A; db 16:35 BP 102 / 84; Pulse 96; Resp 18; Temp 97.8; Pulse Ox 100% ; db 17:30 BP 104 / 82; Pulse 94; Resp 16; Pulse Ox 98% on R/A; db MDM: 16:40 Patient medically screened. rn 17:33 Differential diagnosis: Anxiety Reaction Bronchitis Myocardial Infarction pneumonia, rn Pneumothorax pulmonary edema. Data reviewed: vital signs, nurses notes, EKG, radiologic studies, plain films, and as a result, I will discharge patient. 17:40 Counseling: I had a detailed discussion with the patient and/or guardian regarding the rn historical points, exam findings, and any diagnostic results supporting the discharge/admit diagnosis, radiology results, the need for outpatient follow up, to return to the emergency department if symptoms worsen or persist or if there are any questions or concerns that arise at home. Special discussion: I discussed with the patient/guardian in detail that at this point there is no indication for admission to the hospital. It is understood, however, that if the symptoms persist or worsen the patient needs to return immediately for re-evaluation. 09/13 16:47 Order name: XRAY Chest Pa And Lat (2 Views); Complete Time: 17:33 db 09/13 16:47 Order name: EKG; Complete Time: 16:47 db 09/13 16:47 Order name: EKG - Nurse/Tech; Complete Time: 17:01 db EC:33 Rate is 76 beats/min. Rhythm is regular. QRS [place] is Normal. [place] interval is normal. QRS rn interval is normal. QT interval is normal. No Q waves. T waves are Normal. No ST changes noted. Clinical impression: NSR w/ Non-specific ST/T Changes. Interpreted by me. Reviewed by me. Administered Medications: No medications were administered Disposition Summary: 09/13/23 17:41 Discharge Ordered Notes: Location: Home rn Problem: new rn Symptoms: have improved rn Condition: Stable rn Diagnosis - Chest pain, unspecified rn Followup: rn - With: Private Physician - When: As needed - Reason: Recheck today's complaints, Re-evaluation by your physician Forms: - Medication Reconciliation Form rn - Thank You Letter rn - Antibiotic yarn comber - Prescription Opioid Use rn - Patient Portal Instructions rn - Leadership Thank You Letter rn Signatures: Dispatcher [employer] Raul Albright MD MD rn Benton, Danielle, RN RN db
--- NOTE | 2023-09-13 17:41 | ER ---
Nurse's Notes [facility] Name: Brii Garcia Age: 43 yrs Sex: Female : 1980 Arrival Date: 09/13/2023 Time: 16:24 Bed IW1 Private MD: Diagnosis: Chest pain, unspecified Presentation: 09/13 16:32 Chief complaint: EMS states: CHEST AND BACK PAIN, HAD A PANIC ATTACK. GOT AN EVICTION db NOTICE TODAY . NAD IN TRIAGE. Coronavirus screen: Client denies travel out of the [place] in the last 14 days. At this time, the client does not indicate any symptoms associated with coronavirus-19. Ebola Screen: Patient negative for fever greater than or equal to 101.5 degrees Fahrenheit, and additional compatible Ebola Virus Disease symptoms Patient denies exposure to infectious person. Patient denies travel to an Ebola-affected area in the 21 days before illness onset. No symptoms or risks identified at this time. Initial Sepsis Screen: Does the patient meet any 2 criteria? No. Patient's initial sepsis screen is negative. Does the patient have a suspected source of infection? No. Patient's initial sepsis screen is negative. Risk Assessment: Do you want to hurt yourself or someone else? Patient reports no desire to harm self or others. Onset of symptoms was September 13, 2023. 16:32 Method Of Arrival: EMS: [facility] db 16:32 Acuity: ANG 2 db Triage Assessment: 16:37 General: Appears in no apparent distress. comfortable, Behavior is calm, cooperative. db Pain: Complains of pain in back and chest. Neuro: Level of Consciousness is awake, alert, obeys commands, Oriented to person, place, time, situation. Cardiovascular: Reports chest pain. Respiratory: Reports pain with cough Onset: The symptoms/episode began/occurred today, the patient has mild shortness of breath. Historical: - Allergies: 16:35 HYDROCODONE; db - PMHx: 16:35 Anxiety; Squamous cell carcinoma of tongue; db - PSHx: 16:35 Carcinoma removed; G tube placement; right leg; total tongue removal; tracheostomy; db - Immunization history:: Adult Immunizations unknown. - Family history:: not pertinent. - Social history:: Smoking status: unknown. - Hospitalizations: : No recent hospitalization is reported. Screenin:50 [facility] ED Fall Risk Assessment (Adult) History of falling in the last 3 months, db including since admission No falls in past 3 months (0 pts). [facility] ED Fall Risk Assessment (Adult) Score/Fall Risk Level 0 - 2 = Low Risk Oriented to surroundings, Maintained a safe environment. Abuse screen: Denies threats or abuse. Abuse screen: Denies injuries from another. Nutritional screening: No deficits noted. Tuberculosis screening: No symptoms or risk factors identified. Assessment: 17:00 Reassessment: Patient appears in no apparent distress at this time. Patient and/or db family updated on plan of care and expected duration. Pain level reassessed. Patient is alert, oriented x 3, equal unlabored respirations, skin warm/dry/pink. Reassessment: Patient states feeling better. Patient states symptoms have improved. General: Appears in no apparent distress. comfortable, Behavior is calm, cooperative. Pain: Complains of pain in back. Neuro: Level of Consciousness is awake, alert, obeys commands, Oriented to person, place, time, situation. Respiratory: Airway is patent Respiratory effort is even, unlabored, Breath sounds are clear bilaterally. 17:50 Cardiovascular: Rhythm is regular. db 18:09 Reassessment: ATTEMPTED TO CALL TAXI FOR PATIENT. NO ANSWER. db Vital Signs: 16:32 BP 117 / 72; Pulse 77; Resp 18; Pulse Ox 99% on R/A; db 16:35 BP 102 / 84; Pulse 96; Resp 18; Temp 97.8; Pulse Ox 100% ; db 17:30 BP 104 / 82; Pulse 94; Resp 16; Pulse Ox 98% on R/A; db ED Course: 16:28 Patient arrived in ED. ae5 16:35 Triage completed. db 16:37 Arm band placed on left wrist. Patient placed in waiting room. db 16:40 Raul Parkinson MD is Attending Physician. rn 17:14 XRAY Chest Pa And Lat (2 Views) In Process Unspecified. EDMS 17:50 Patient has correct armband on for positive identification. Provided Education on: db DISCHARGE. 17:50 No provider procedures requiring assistance completed. Patient did not have IV access db during this emergency room visit. 18:07 Kathrin Tobar, RN is Primary Nurse. db Administered Medications: No medications were administered Medication: 17:50 VIS not applicable for this client. db Outcome: 17:41 Discharge ordered by . rn 17:50 Discharged to home ambulatory, db 17:50 Condition: stable 17:50 Discharge instructions given to patient, Instructed on discharge instructions, follow up and referral plans. 18:22 Patient left the ED. db Signatures: Dispatcher [employer] Raul Albright MD MD rn Benton, Danielle RN Ariadne Brown aeBrandi
[2023-09-13 21:30] VITALS: TEMP 97.8
[2023-09-13 21:44] VITALS: BP 104/82; O2SAT 98
== END ==
LOC: ER 16:24
DX: R07.89 Other chest pain (principal); R06.02 Shortness of breath; Z88.5 Allergy status to narcotic agent
CPT/HCPCS: 71046; 93005